=== PATIENT | female | born 1945 | race African-American/Black ===

== ENCOUNTER 2016-05-12 16:01 | Observation (INO) | payer OTHER ==
--- NOTE | 2016-05-12 17:51 | PDOC ---
History of Present Illness - General History Source: Patient Exam Limitations: No Limitations - History of Present Illness Initial Comments: 05/12/16 18:00 The patient is a 70 year old female with significant past medical history of anemia, asthma, a-fib, CHF, COPD, diabetes, GERD, hypertension, hyperlipidemia, who presents to the emergency department from [facility] for a blood transfusion. The patient had routine bloodwork done at the [facility] where she was found to have an Hgb level of 7. The patient is not in any pain, however she does complain of some generalized weakness. She denies any syncope, palpitations, lightheadedness. She denies any chest pain or shortness of breath. She denies any abdominal pain, nausea, vomiting, or diarrhea. The patient denies recent illness, fevers, or chills. <Mariza Craven - Last Filed: 05/12/16 18:00> <Isaias Montenegro - Last Filed: 05/12/16 18:59> - General Chief Complaint: Revisit, Lab Variance Stated Complaint: ABNORMAL LABS Time Seen by Provider: 05/12/16 16:52 Past History <Mariza Craven - Last Filed: 05/12/16 18:00> - Past Medical History Anemia: Yes Asthma: Yes Cancer: No Cardiac Disorders: Yes (atrial fibrilation, CHF) CVA: No COPD: Yes CHF: Yes Dementia: No Diabetes: Yes GI Disorders: Yes (GERD) Disorders: Yes (UTI) HTN: Yes Hypercholesterolemia: Yes Liver Disease: No Suicide Attempt (Hx): No Seizures: No Thyroid Disease: No - Surgical History Abdominal Surgery: No Appendectomy: No Cardiac Surgery: No Cholecystectomy: No Lung Surgery: No Neurologic Surgery: No Orthopedic Surgery: Yes (L. Ankle sx, L.leg) - Immunization History Immunization Up to Date: Yes - Psycho/Social/Smoking Cessation Hx Anxiety: No Suicidal Ideation: No Smoking Status: No Smoking History: Never smoked Have you smoked in the past 12 months: No Number of Cigarettes Smoked Daily: 0 Information on smoking cessation initiated: No Hx Alcohol Use: No Drug/Substance Use Hx: No Substance Use Type: None Hx Substance Use Treatment: No <Isaias Montenegro - Last Filed: 05/12/16 18:59> - Past Medical History Allergies/Adverse Reactions: Allergies Allergy/AdvReac Type Severity Reaction Status Date / Time No Known Allergies Allergy Verified 05/12/16 16:55 Home Medications: Ambulatory Orders Acetaminophen [Tylenol] 650 mg PO BID 05/12/16 Albuterol 2.5/Ipratropium 0.5 [Duoneb -] 1 neb IH QID 05/12/16 Atorvastatin Ca [Lipitor] 10 mg PO HS 05/12/16 Budesonide/Formeterol Fumarate [SYMBICORT 160/4.5mcg -] 1 inh PO BID 05/12/16 Carvedilol [Coreg] 25 mg PO DAILY 05/12/16 Docusate Sodium 100 mg PO DAILY 05/12/16 Epoetin Orlando [Procrit] 20,000 unit IJ WEEKLY 05/12/16 FENTANYL 25mcg PATCH [DURAGESIC 25mcg PATCH -] 1 each TD Q72H 05/12/16 Ferrous Sulfate 325 mg PO DAILY 05/12/16 Folic Acid 1 mg PO DAILY 05/12/16 Furosemide 20 mg PO DAILY 05/12/16 Guaifenesin [Mucinex] 600 mg PO DAILY 05/12/16 Insulin (Levemir) [Levemir Flexpen -] 30 units SQ AM 05/12/16 Isosorbide Mononitrate [Imdur] 60 mg PO DAILY 05/12/16 Lactulose 10 gm PO DAILY 05/12/16 Metolazone [Zaroxolyn -] 5 mg PO DAILY 05/12/16 Nifedipine [Procardia Xl] 60 mg PO DAILY 05/12/16 Oxycodone HCl 10 mg PO TID 05/12/16 Pantoprazole Sodium [Protonix] 40 mg PO DAILY 05/12/16 Ranitidine [Zantac -] 150 mg PO DAILY 05/12/16 Sennosides [Senna] 8.6 mg PO DAILY 05/12/16 Warfarin Sodium [Coumadin] 4 mg PO DAILY 05/12/16 Review of Systems - Review of Systems Able to Perform ROS?: Yes Comments:: 05/12/16 18:00 GENERAL/CONSTITUTIONAL: +Weakness. No fever or chills. HEAD, EYES, EARS, NOSE AND THROAT: No change in vision. No ear pain or discharge. No sore throat. CARDIOVASCULAR: No chest pain or shortness of breath. RESPIRATORY: No cough, wheezing, or hemoptysis. GASTROINTESTINAL: No nausea, vomiting, diarrhea or constipation. GENITOURINARY: No dysuria, frequency, or change in urination. MUSCULOSKELETAL: No joint or muscle swelling or pain. No neck or back pain. SKIN: No rash NEUROLOGIC: No headache, vertigo, loss of consciousness, or change in strength/ sensation. ENDOCRINE: No increased thirst. No abnormal weight change. HEMATOLOGIC/LYMPHATIC: No anemia, easy bleeding, or history of blood clots. ALLERGIC/IMMUNOLOGIC: No hives or skin allergy. <Mariza Craven - Last Filed: 05/12/16 18:00> *Physical Exam - Vital Signs Last Vital Signs Temp Pulse Resp BP Pulse Ox 98.1 F 54 L 18 167/55 98 05/12/16 16:53 05/12/16 16:53 05/12/16 16:53 05/12/16 16:53 05/12/16 16:53 - Physical Exam Comments: 05/12/16 18:00 GENERAL: Awake, alert, and fully oriented, in no acute distress HEAD: No signs of trauma EYES: PERRLA, EOMI, sclera anicteric, conjunctiva clear ENT: Auricles normal inspection, hearing grossly normal, nares patent, oropharynx clear without exudates. Moist mucosa NECK: Normal ROM, supple, no lymphadenopathy, JVD, or masses LUNGS: Breath sounds equal, clear to auscultation bilaterally. No wheezes, and no crackles HEART: Regular rate and rhythm, normal S1 and S2, no murmurs, rubs or gallops ABDOMEN: Soft, nontender, normoactive bowel sounds. No guarding, no rebound. No masses EXTREMITIES: Normal range of motion, no edema. No clubbing or cyanosis. No cords, erythema, or tenderness NEUROLOGICAL: Cranial nerves II through XII grossly intact. Normal speech, normal gait SKIN: Warm, Dry, normal turgor, no rashes or lesions noted. <Mariza Craven - Last Filed: 05/12/16 18:00> - Vital Signs Last Vital Signs Temp Pulse Resp BP Pulse Ox 98.1 F 54 L 18 167/55 98 05/12/16 16:53 05/12/16 16:53 05/12/16 16:53 05/12/16 16:53 05/12/16 16:53 <Isaias Montenegro - Last Filed: 05/12/16 18:59> ED Treatment Course - LABORATORY CBC & Chemistry Diagram: 05/12/16 17:30 05/12/16 17:30 - ADDITIONAL ORDERS Additional order review: 05/12/16 17:30 RBC 2.94 L MCV 79.4 L MCHC 32.0 RDW 16.9 H MPV 7.9 Neutrophils % 69.8 Lymphocytes % 20.6 D Monocytes % 5.6 Eosinophils % 2.8 Basophils % 1.2 <Mariza Craven - Last Filed: 05/12/16 18:00> - LABORATORY CBC & Chemistry Diagram: 05/12/16 17:30 05/12/16 17:30 - RADIOLOGY Radiology Studies Ordered: Category Date Time Status CXRPORT [CHEST X-RAY PORTABLE*] [RAD] Stat Radiology 05/12/16 17:12 Taken <Isaias Montenegro - Last Filed: 05/12/16 18:59> *DC/Admit/Observation/Transfer - Attestations Scribe Attestion: 05/12/16 18:00 Documentation prepared by Mariza Craven, acting as medical administrative specialist for Isaias Montenegro DO. <Mariza Craven - Last Filed: 05/12/16 18:00> - Discharge Dispostion Admit: Yes - Attestations Physician Attestion: 05/12/16 17:51 I, Dr. Isaias Montenegro, attest that this document has been prepared under my direction and personally reviewed by me in its entirety. I further attest, that it accurately reflects all work, treatment, procedures and medical decision -making performed by me. <Isaias Montenegro - Last Filed: 05/12/16 18:59> Diagnosis at time of Disposition: Anemia due to blood loss, Anticoagulated with warfarin - Discharge Dispostion Condition at time of disposition: Improved - Referrals Referrals: Diana Whitmore MD [Primary Care Provider] -
[2016-05-12 17:52] LABS: BASOPHIL 1.2 % (0-2.0); EOSINOPHIL 2.8 % (0-4.5); MCH 25.4 pg (25.7-33.7); MEAN CELL VOLUME 79.4 fl (80-96); MEAN PLT VOLUME 7.9 fl (7.5-11.1); NEUTROPHILS 69.8 % (42.8-82.8); PLATELET COUNT 225 K/MM3 (134-434); RDW 16.9 % (11.6-15.6); WHITE BLOOD COUNT 7.4 K/mm3 (4.0-10.0)
[2016-05-12 18:40] LABS: INR 2.12 (0.82-1.09); PROTHROMBIN TIME (PATIENT) 23.7 SEC (9.98-11.88)
[2016-05-12] MEDS ORDERED: ALBUTEROL SO4 2.5/IPRATROPIUM 0.5 INH SOL 3 ML VIAL.NEB. NEB PRN (19:50)
[2016-05-12] MEDS ORDERED: FUROSEMIDE 40 MG/4 ML INJECTABLE VIAL IVPB ONE (19:51)
[2016-05-12] MEDS ORDERED: FENTANYL PATCH WASTE TD PRN (20:08)
[2016-05-12 20:14] LABS: ALBUMIN 2.7 g/dl (3.4-5.0); ALK PHOS 57 U/L (45-117); ANION GAP 13 (8-16); BILIRUBIN,TOTAL 0.2 mg/dL (0.2-1.0); CALCIUM 8.6 mg/dL (8.5-10.1); CO2 29 mmol/L (21-32); CREATININE 2.7 mg/dL (0.55-1.02); GLUCOSE,RANDOM 206 mg/dL (74-106); SGOT/AST 11 U/L (15-37); SGPT/ALT 12 U/L (12-78); TOT PROT 6.4 g/dl (6.4-8.2)
[2016-05-12 20:17] LABS: TROPONIN I < 0.02 ng/ml (0.00-0.05)
[2016-05-12 20:56] VITALS: BMI 67.1
[2016-05-12] MEDS ORDERED: ATORVASTATIN CA 10 MG TABLET (FP) PO SCH (22:00)
[2016-05-12] MEDS: fentaNYL 25mcg/hr PATCH.TD72 TD SCH (22:12)
[2016-05-12 23:13] LABS: URINE APPEARANCE SLCLOUDY; URINE BILIRUBIN NEGATIVE (NEGATIVE); URINE COLOR LTYELLOW; URINE GLUCOSE (UA) NEGATIVE (NEGATIVE); URINE KETONE NEGATIVE (NEGATIVE); URINE NITRITE NEGATIVE (NEGATIVE); URINE UROBILINOGEN NEGATIVE E.U./dl (0.2-1.0)
[2016-05-12 23:18] LABS: URINE BLOOD 1+ (NEGATIVE); URINE LEUK ESTERASE 1+ (NEGATIVE); URINE PROTEIN 2+ (NEGATIVE)
[2016-05-12 23:19] LABS: URINE RBC 5 /hpf (0-3); URINE WBC 5 /hpf (3-5)
[2016-05-12 23:20] LABS: URINE MUCUS RARE
[2016-05-12] MEDS: BUDESONIDE/FORMETEROL FUMARATE 160/4.5 mcg INHALER IH SCH (23:30)
[2016-05-13] MEDS ORDERED: FUROSEMIDE 40 MG/4 ML INJECTABLE VIAL IVPB ONE (01:00)
[2016-05-13] MEDS: oxyCODONE HCL 5 MG TABLET PO PRN ×2 (01:43→10:22)
[2016-05-13] MEDS: ACETAMINOPHEN 325 MG TABLET (FP) PO PRN ×2 (01:44→10:20)
[2016-05-13] MEDS ORDERED: PT OWN MED DRAWER 7, Y5N ONE ×2 (02:31→10:15)
[2016-05-13] MEDS ORDERED: INSULIN (NOVOLOG) ASPART 100 UNITS/ML 10ML VIAL ONE ×2 (06:30→11:52)
[2016-05-13] MEDS: INSULIN SLIDING SCALE (NOVOLOG) 1 VIAL SQ SCH ×2 (06:50→11:57)
[2016-05-13] MEDS ORDERED: INSULIN DETEMIR 100 UNITS/ML MDV SQ SCH (07:00)
[2016-05-13 08:10] LABS: BASOPHIL 0.6 % (0-2.0); EOSINOPHIL 2.7 % (0-4.5); MCH 25.5 pg (25.7-33.7); MCHC 31.9 g/dl (32.0-36.0); MEAN CELL VOLUME 79.9 fl (80-96); MEAN PLT VOLUME 7.5 fl (7.5-11.1); NEUTROPHILS 68.2 % (42.8-82.8); PLATELET COUNT 208 K/MM3 (134-434); RDW 16.7 % (11.6-15.6); WHITE BLOOD COUNT 7.7 K/mm3 (4.0-10.0)
[2016-05-13 08:20] LABS: INR 1.93 (0.82-1.09); PROTHROMBIN TIME (PATIENT) 21.5 SEC (9.98-11.88)
[2016-05-13 08:47] LABS: ALBUMIN 2.7 g/dl (3.4-5.0); CALCIUM 8.7 mg/dL (8.5-10.1); CREATININE 2.5 mg/dL (0.55-1.02)
[2016-05-13 08:48] LABS: BILIRUBIN,TOTAL 0.4 mg/dL (0.2-1.0); TOT PROT 6.6 g/dl (6.4-8.2)
[2016-05-13] MEDS ORDERED: FERROUS SO4 325 MG TABLET (FP) PO SCH (10:00)
[2016-05-13] MEDS ORDERED: FOLIC ACID 1 MG TABLET (FP) PO SCH (10:00)
[2016-05-13] MEDS ORDERED: CARVEDILOL 25 MG TABLET (FP) PO SCH (10:00)
[2016-05-13] MEDS ORDERED: NIFEdipine E.R 60 MG TABLET (UD) PO SCH (10:00)
[2016-05-13] MEDS ORDERED: SENNOSIDES 8.6MG TABLET (FP) PO SCH (10:00)
[2016-05-13] MEDS ORDERED: ISOSORBIDE MONONITRATE 60 MG TAB.SR.24H (FP) PO SCH (10:00)
[2016-05-13] MEDS ORDERED: LACTULOSE 20 GM/30 ML UDC (FOR ORAL USE ONLY) PO SCH (10:00)
[2016-05-13] MEDS ORDERED: DOCUSATE SODIUM 100 MG CAPSULE (FP) PO SCH (10:00)
[2016-05-13] MEDS ORDERED: PANTOPRAZOLE 40 MG TABLET (FP) PO SCH (10:00)
[2016-05-13] MEDS: BUDESONIDE/FORMETEROL FUMARATE 160/4.5 mcg INHALER IH SCH (10:23)
--- NOTE | 2016-05-13 11:05 | HP ---
Admitting History and Physical - Primary Care Physician PCP: Diana Whitmore - Admission Chief Complaint: anemia History of Present Illness: ER HISTORY - History of Present Illness Initial Comments: 05/12/16 18:00 The patient is a 70 year old female with significant past medical history of anemia, asthma, a-fib, CHF, COPD, diabetes, GERD, hypertension, hyperlipidemia, who presents to the emergency department from [facility] for a blood transfusion. The patient had routine blood work done at the [facility] where she was found to have an Hgb level of 7. The patient is not in any pain, however she does complain of some generalized weakness. She denies any syncope, palpitations, lightheadedness. She denies any chest pain or shortness of breath. She denies any abdominal pain, nausea, vomiting, or diarrhea. The patient denies recent illness, fevers, or chills. Pt examined by me in the floors She has h/o Afib on Coumadin and anemia-- requiring blood transfusions Denies any bleeding episodes Denies chest pain, SOB, palpitations, dizziness Received 2 units of PRBC so far Just recovering from flu like symptoms for about a week now - Past Medical History Cardiovascular: Yes: AFIB (anticoagulants for 5 yrs ), CHF, HTN, Hyperlipdemia. No: CAD Pulmonary: Yes: Asthma, COPD Gastrointestinal: Yes: Constipation, GERD, Hemorrhoids, Other (does not remember about colonscopy ) Renal/: Yes: Renal Inusuff, UTI (h/o recurrent uti) Heme/Onc: Yes: Anemia Psych: Yes: Depression (because son at age 38 yrs by sucide ) Musculoskeletal: Yes: Osteoarthritis Endocrine: Yes: Diabetes Mellitus (IDDM since age 40 yrs ), Other (morbid obesity ) - Past Surgical History Past Surgical History: Yes: (40 years ago per patient) - Smoking History Smoking history: Never smoked Have you smoked in the past 12 months: No Aproximately how many cigarettes per day: 0 - Alcohol/Substance Use Hx Alcohol Use: No History of Substance Use: reports: None Home Medications - Allergies Allergies/Adverse Reactions: Allergies Allergy/AdvReac Type Severity Reaction Status Date / Time No Known Allergies Allergy Verified 05/12/16 16:55 - Home Medications Home Medications: Ambulatory Orders Acetaminophen [Tylenol] 650 mg PO BID 05/12/16 Albuterol 2.5/Ipratropium 0.5 [Duoneb -] 1 neb IH QID 05/12/16 Atorvastatin Ca [Lipitor] 10 mg PO HS 05/12/16 Budesonide/Formeterol Fumarate [SYMBICORT 160/4.5mcg -] 1 inh PO BID 05/12/16 Carvedilol [Coreg] 25 mg PO DAILY 05/12/16 Docusate Sodium 100 mg PO DAILY 05/12/16 Epoetin Orlando [Procrit] 20,000 unit IJ WEEKLY 05/12/16 FENTANYL 25mcg PATCH [DURAGESIC 25mcg PATCH -] 1 each TD Q72H 05/12/16 Ferrous Sulfate 325 mg PO DAILY 05/12/16 Folic Acid 1 mg PO DAILY 05/12/16 Furosemide 20 mg PO DAILY 05/12/16 Guaifenesin [Mucinex] 600 mg PO DAILY 05/12/16 Insulin (Levemir) [Levemir Flexpen -] 30 units SQ AM 05/12/16 Isosorbide Mononitrate [Imdur] 60 mg PO DAILY 05/12/16 Lactulose 10 gm PO DAILY 05/12/16 Metolazone [Zaroxolyn -] 5 mg PO DAILY 05/12/16 Nifedipine [Procardia Xl] 60 mg PO DAILY 05/12/16 Oxycodone HCl 10 mg PO TID 05/12/16 Pantoprazole Sodium [Protonix] 40 mg PO DAILY 05/12/16 Ranitidine [Zantac -] 150 mg PO DAILY 05/12/16 Sennosides [Senna] 8.6 mg PO DAILY 05/12/16 Warfarin Sodium [Coumadin] 4 mg PO DAILY 05/12/16 Family Disease History - Family Disease History Family Disease History: Diabetes: Father, Mother Review of Systems - Review of Systems Constitutional: reports: Weakness. denies: Fever, Lethargy, Loss of Appetite Cardiovascular: denies: Chest Pain, Palpitations, Shortness of Breath Respiratory: denies: Cough, Orthopnea, PND, SOB, SOB on Exertion Physical Examination Vital Signs: Vital Signs Temperature 97.9 F 05/13/16 06:00 Pulse Rate 69 05/13/16 06:00 Respiratory Rate 20 05/13/16 06:00 Blood Pressure 192/54 05/13/16 06:00 O2 Sat by Pulse Oximetry (%) 98 05/13/16 04:00 Constitutional: Yes: No Distress, Calm Cardiovascular: Yes: Pulse Irregular Respiratory: Yes: Diminished Gastrointestinal: Yes: Normal Bowel Sounds, Soft, Abdomen, Obese. No: Distention, Tenderness Edema: Yes (decreased from previous) Edema: LLE: 2+, RLE: 2+ Neurological: Yes: Alert, Oriented Labs: CBC, BMP 05/13/16 07:20 05/13/16 07:20 Imaging - Results Chest X-ray: Image Reviewed (no infiltrates) EKG: Image Reviewed (Afib) Problem List - Problems (1) Anemia, blood loss Code(s): D50.0 - IRON DEFICIENCY ANEMIA SECONDARY TO BLOOD LOSS (CHRONIC) (2) Anticoagulated on Coumadin Code(s): Z51.81 - ENCOUNTER FOR THERAPEUTIC DRUG LEVEL MONITORING Z79.01 - RETIREMENT (CURRENT) USE OF 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 (3) Afib Code(s): I48.91 - UNSPECIFIED ATRIAL FIBRILLATION Qualifiers: Atrial fibrillation type: persistent Qualified Code(s): I48.1 - Persistent atrial fibrillation (4) Kidney disease, chronic, stage III (GFR 30-59 ml/min) Code(s): N18.3 - CHRONIC KIDNEY DISEASE, STAGE 3 (MODERATE) Assessment/Plan PLAN --s/p 2 units of PRBC -- HB better -- renal function better -- will resume Lasix BID -- continue with meds -- she will be seeing Dr Mccullough in the MD -- continue with Coumadin -- dc to MD
--- NOTE | 2016-05-13 13:12 | DS ---
Physical Examination Vital Signs: Vital Signs Temperature 97.9 F 05/13/16 06:00 Pulse Rate 69 05/13/16 06:00 Respiratory Rate 20 05/13/16 06:00 Blood Pressure 192/54 05/13/16 06:00 O2 Sat by Pulse Oximetry (%) 98 05/13/16 04:00 Labs: CBC, BMP 05/13/16 07:20 05/13/16 07:20 Discharge Summary Reason For Visit: COPD W/EXACERBATION; ANEMIA; A-FIB; OBESITY Current Active Problems Anemia, blood loss (Acute) Anticoagulated on Coumadin (Acute) Kidney disease, chronic, stage III (GFR 30-59 ml/min) (Acute) Hospital Course: read H & P Condition: Improved - Instructions Diet, Activity, Other Instructions: please check CBC, bmp , INR every 2 weeks will need to see Dr Mccullough for follow up with renal function Referrals: Diana Whitmore MD [Staff Physician] - Disposition: HALF-WAY FACILITY - Home Medications Comprehensive Discharge Medication List: Ambulatory Orders Acetaminophen [Tylenol] 650 mg PO BID 05/12/16 Albuterol 2.5/Ipratropium 0.5 [Duoneb -] 1 neb IH QID 05/12/16 Atorvastatin Ca [Lipitor] 10 mg PO HS 05/12/16 Budesonide/Formeterol Fumarate [SYMBICORT 160/4.5mcg -] 1 inh PO BID 05/12/16 Carvedilol [Coreg] 25 mg PO DAILY 05/12/16 Docusate Sodium 100 mg PO DAILY 05/12/16 Epoetin Orlando [Procrit] 20,000 unit IJ WEEKLY 05/12/16 FENTANYL 25mcg PATCH [DURAGESIC 25mcg PATCH -] 1 each TD Q72H 05/12/16 Ferrous Sulfate 325 mg PO DAILY 05/12/16 Folic Acid 1 mg PO DAILY 05/12/16 Guaifenesin [Mucinex] 600 mg PO DAILY 05/12/16 Insulin (Levemir) [Levemir Flexpen -] 30 units SQ AM 05/12/16 Isosorbide Mononitrate [Imdur] 60 mg PO DAILY 05/12/16 Lactulose 10 gm PO DAILY 05/12/16 Metolazone [Zaroxolyn -] 5 mg PO DAILY 05/12/16 Nifedipine [Procardia Xl] 60 mg PO DAILY 05/12/16 Oxycodone HCl 10 mg PO TID 05/12/16 Pantoprazole Sodium [Protonix] 40 mg PO DAILY 05/12/16 Ranitidine [Zantac -] 150 mg PO DAILY 05/12/16 Sennosides [Senna] 8.6 mg PO DAILY 05/12/16 Warfarin Sodium [Coumadin] 4 mg PO DAILY 05/12/16 Furosemide [Lasix -] 40 mg PO BID@0600,1400 #60 tablet 05/13/16
[2016-05-13 13:35] VITALS: PULSE 65; TEMP 97.8
[2016-05-13 13:50] VITALS: BP 140/80
[2016-05-13] MEDS ORDERED: FUROSEMIDE 40 MG TABLET (FP) PO SCH (14:00)
--- NOTE | 2016-05-13 17:35 | EKG ---
Test Reason : Blood Pressure : / mmHG Vent. Rate : 070 BPM Atrial Rate : 065 BPM P-R Int : 000 ms QRS Dur : 086 ms QT Int : 440 ms P-R-T Axes : 000 043 056 degrees QTc Int : 475 ms POOR DATA QUALITY, INTERPRETATION MAY BE ADVERSELY AFFECTED ATRIAL FIBRILLATION ABNORMAL ECG WHEN COMPARED WITH ECG OF 10-MAR-2016 14:13, NO SIGNIFICANT CHANGE WAS FOUND Confirmed by ZEE VELASQUEZ, ELOISA ([id number]) on 05/13/2016 5:35:07 PM Referred By: Confirmed By:ELOISA KOCH MD
[2016-05-13] MEDS ORDERED: WARFARIN NA 2 MG TABLET (UD) PO SCH (18:00)
== END 2016-05-13 16:17 ==
LOC: JER 16:01 → SUPCPDRO 16:01 → JERBED 19:25 → J6S 20:33
PROVIDERS: ADMIT Internal Medicine; ATTEND Internal Medicine
PROC: 30233N1 Transfusion of Nonautologous Red Blood Cells into Peripheral Vein, Percutaneous Approach (ICD-10-PCS; principal; 2016-05-12)
DX: D50.0 Iron deficiency anemia secondary to blood loss (chronic) (principal); J45.909 Unspecified asthma, uncomplicated; I48.91 Unspecified atrial fibrillation; J44.9 Chronic obstructive pulmonary disease, unspecified; E11.9 Type 2 diabetes mellitus without complications; K21.9 Gastro-esophageal reflux disease without esophagitis; F32.9 Major depressive disorder, single episode, unspecified; I12.9 Hypertensive chronic kidney disease with stage 1 through stage 4 chronic kidney disease, or unspecified chronic kidney disease; N18.3 Chronic kidney disease, stage 3 (moderate); M19.90 Unspecified osteoarthritis, unspecified site; I50.9 Heart failure, unspecified; E66.01 Morbid (severe) obesity due to excess calories; Z68.44 Body mass index [BMI] 60.0-69.9, adult; Z71.3 Dietary counseling and surveillance; Z79.01 Long term (current) use of anticoagulants
CPT/HCPCS: 36430; P9021; 36415; 71010-TC; 80053; 81003; 81015; 82550; 83690; 84484; 85025; 85610; 86850; 86870; 86900; 86901; 86902; 86922; 87086; 93005; 93010; 99285-25; G0378; P9038; P9058

== ENCOUNTER 2016-07-25 01:02 | Inpatient (IN) | payer OTHER ==
[2016-07-25 01:21] VITALS: BMI 74.9
--- NOTE | 2016-07-25 01:45 | PDOC ---
History of Present Illness <Maria Teresa Dillard - Last Filed: 07/25/16 05:53> - History of Present Illness Initial Comments: 07/25/16 02:07 The patient is a 70 year old female with history of hypertension, hyperlipidemia , DM, CHF, atrial fibrillation, asthma, chronic anemia, and obesity, sent from [facility] for anemia. On evaluation, the patient complains only of joint pain in her bilateral hands and shoulders secondary to her arthritis. No chest pain, lightheadedness, or shortness of breath. No melena, hematochezia, or hempotysis. <Esme Sage - Last Filed: 07/25/16 06:35> - General Chief Complaint: Revisit, Lab Variance Stated Complaint: ABNORMAL LABS Time Seen by Provider: 07/25/16 01:44 Past History - Past Medical History Anemia: Yes Asthma: Yes Cancer: No Cardiac Disorders: Yes (atrial fibrilation, CHF) CVA: No COPD: Yes CHF: Yes Dementia: No Diabetes: Yes GI Disorders: Yes (GERD) Disorders: Yes (UTI) HTN: Yes Hypercholesterolemia: Yes Liver Disease: No Suicide Attempt (Hx): No Seizures: No Thyroid Disease: No - Surgical History Abdominal Surgery: No Appendectomy: No Cardiac Surgery: No Cholecystectomy: No Lung Surgery: No Neurologic Surgery: No Orthopedic Surgery: Yes (L. Ankle sx, L.leg) - Immunization History Immunization Up to Date: Yes - Psycho/Social/Smoking Cessation Hx Anxiety: No Suicidal Ideation: No Smoking Status: No Smoking History: Never smoked Have you smoked in the past 12 months: No Number of Cigarettes Smoked Daily: 0 Hx Alcohol Use: No Drug/Substance Use Hx: No Substance Use Type: None Hx Substance Use Treatment: No <Maria Teresa Dillard - Last Filed: 07/25/16 05:53> <Esme Sage - Last Filed: 07/25/16 06:35> - Past Medical History Allergies/Adverse Reactions: Allergies Allergy/AdvReac Type Severity Reaction Status Date / Time No Known Allergies Allergy Verified 07/25/16 01:18 Home Medications: Ambulatory Orders Acetaminophen [Tylenol] 650 mg PO BID 05/12/16 Atorvastatin Ca [Lipitor] 10 mg PO HS 05/12/16 Budesonide/Formeterol Fumarate [SYMBICORT 160/4.5mcg -] 1 inh PO BID 05/12/16 Carvedilol [Coreg] 25 mg PO DAILY 05/12/16 Docusate Sodium 100 mg PO DAILY 05/12/16 Epoetin [place] [Procrit] 20,000 unit SQ WEEKLY 05/12/16 FENTANYL 25mcg PATCH [DURAGESIC 25mcg PATCH -] 1 each TD Q72H 05/12/16 Ferrous Sulfate 325 mg PO DAILY 05/12/16 Folic Acid 1 mg PO DAILY 05/12/16 Guaifenesin [Mucinex] 600 mg PO DAILY 05/12/16 Insulin (Levemir) [Levemir Flexpen -] 30 units SQ AM 05/12/16 Isosorbide Mononitrate [Imdur] 60 mg PO DAILY 05/12/16 Lactulose 30 gm PO DAILY 05/12/16 Metolazone [Zaroxolyn -] 5 mg PO DAILY 05/12/16 Oxycodone HCl 10 mg PO TID PRN 05/12/16 Ranitidine [Zantac -] 150 mg PO HS 05/12/16 Sennosides [Senna] 2 tab PO DAILY 05/12/16 Gabapentin 100 mg PO TID 06/15/16 Insulin Aspart [Novolog Flexpen] 0 unit SQ ASDIR 06/15/16 Multivitamin with Minerals [Icaps Plus] 1 each PO DAILY 06/15/16 Acetaminophen [Tylenol .Regular Strength -] 650 mg PO Q6H PRN #0 tablet Albuterol 2.5/Ipratropium 0.5 [Duoneb -] 1 amp NEB QIDR amp 06/18/16 Furosemide [Lasix -] 60 mg PO BID@0600,1400 #60 tablet 06/18/16 Nifedipine [Procardia Xl] 90 mg PO DAILY #30 tab.er.24 06/18/16 Warfarin Na [Coumadin -] 5 mg PO DAILY@1800 tablet 06/18/16 Review of Systems - Review of Systems Able to Perform ROS?: Yes Comments:: 07/25/16 02:09 GENERAL/CONSTITUTIONAL: No fever or chills. No weakness. HEAD, EYES, EARS, NOSE AND THROAT: No change in vision. No ear pain or discharge. No sore throat CARDIOVASCULAR: No chest pain or shortness of breath. RESPIRATORY: No cough, wheezing, or hemoptysis. GASTROINTESTINAL: No nausea, vomiting, diarrhea or constipation. GENITOURINARY: No dysuria, frequency, or change in urination. MUSCULOSKELETAL: +Diffuse arthralgias. No muscle swelling or pain. No back pain. SKIN: No rash NEUROLOGIC: No headache, vertigo, loss of consciousness, or change in strength/ sensation. ENDOCRINE: No increased thirst. No abnormal weight change. HEMATOLOGIC/LYMPHATIC: No anemia, easy bleeding, or history of blood clots. ALLERGIC/IMMUNOLOGIC: No hives or skin allergy. <Esme Sage - Last Filed: 07/25/16 06:35> *Physical Exam - Vital Signs Last Vital Signs Temp Pulse Resp BP Pulse Ox 97.8 F 62 18 126/59 96 07/25/16 01:18 07/25/16 01:18 07/25/16 01:18 07/25/16 01:18 07/25/16 01:18 <Maria Teresa Dillard - Last Filed: 07/25/16 05:53> - Vital Signs Last Vital Signs Temp Pulse Resp BP Pulse Ox 97.8 F 62 18 126/59 96 07/25/16 01:18 07/25/16 01:18 07/25/16 01:18 07/25/16 01:18 07/25/16 01:18 - Physical Exam Comments: 07/25/16 02:09 GENERAL: Awake, alert, and fully oriented, in no acute distress. Morbidly obese. HEAD: No signs of trauma EYES: PERRLA, EOMI, sclera anicteric, conjunctiva clear ENT: Auricles normal inspection, hearing grossly normal, nares patent, oropharynx clear without exudates. Moist mucosa NECK: Normal ROM, supple, no lymphadenopathy, JVD, or masses LUNGS: On nasal cannula. Breath sounds equal, clear to auscultation bilaterally. No wheezes, and no crackles HEART: Regular rate and rhythm, normal S1 and S2, no murmurs, rubs or gallops ABDOMEN: Soft, nontender, normoactive bowel sounds. No guarding, no rebound. No masses EXTREMITIES: Normal range of motion, no edema. No clubbing or cyanosis. No cords, erythema, or tenderness NEUROLOGICAL: Cranial nerves II through XII grossly intact. Normal speech, does not ambulate secondary to pain. SKIN: Warm, Dry, normal turgor, no rashes or lesions noted. <Esme Sage - Last Filed: 07/25/16 06:35> Heart Score/ECG Review #1 07/25/16 04:53 EKG obtained 4:10. Junctional rhythm 65 bpm. Septal infarct, age undetermined. Age undetermined. <Esme Sage - Last Filed: 07/25/16 06:35> ED Treatment Course - LABORATORY CBC & Chemistry Diagram: 07/25/16 03:05 07/25/16 03:05 <Maria Teresa Dillard - Last Filed: 07/25/16 05:53> - LABORATORY CBC & Chemistry Diagram: 07/25/16 03:05 07/25/16 03:05 <Esme Sage - Last Filed: 07/25/16 06:35> Medical Decision Making - Medical Decision Making 07/25/16 02:34 Morbidly obese female comes from [place] for transfusion, as her HB and HCT are low. She chronically has anemia and tells me that she is sent to the hospital for routine transfusions. She has severe arthritis in her knees and coupled with her morbid obesity and deconditioning and her age, she is unable to get out of bed. Everything hurts the patient. 07/25/16 02:57 She comes now for blood transfusion admission for blood Hb 6.9 that was obtained in the [place] earlier ; results came in at 10:38PM last night 07/25/16 04:08 07/25/16 04:16 EKG: junctional rhythm 07/25/16 04:16 Pt's Hb is 6.6. I will put her in for 2U PRBC to be given in the ER, as there are no beds on the med surg floor <Maria Teresa Dillard - Last Filed: 07/25/16 05:53> - Medical Decision Making 07/25/16 05:48 Placed call to patient's PCP, Dr. Roberts and [phone]. Awaiting callback. 07/25/16 06:[address] Roberts, who requested Dr. Lee for admission. Case discussed with Dr. Lee, who agreed to admission. <Esme Sage - Last Filed: 07/25/16 06:35> *DC/Admit/Observation/Transfer - Discharge Dispostion Admit: Yes <Maria Teresa Dillard - Last Filed: 07/25/16 05:53> - Attestations Scribe Attestion: 07/25/16 02:10 Documentation prepared by Esme Sage, acting as medical reimbursement specialist for Maria Teresa Dillard MD. <Esme Sage - Last Filed: 07/25/16 06:35> Diagnosis at time of Disposition: Renal failure (ARF), acute on chronic, Anemia, blood loss - Referrals
[2016-07-25 03:11] LABS: BASOPHIL 0.5 % (0-2.0); EOSINOPHIL 3.1 % (0-4.5); MCH 26.5 pg (25.7-33.7); MCHC 31.6 g/dl (32.0-36.0); MEAN CELL VOLUME 83.7 fl (80-96); MEAN PLT VOLUME 7.7 fl (7.5-11.1); NEUTROPHILS 71.5 % (42.8-82.8); PLATELET COUNT 173 K/MM3 (134-434); RDW 17.6 % (11.6-15.6); WHITE BLOOD COUNT 7.2 K/mm3 (4.0-10.0)
[2016-07-25 03:52] LABS: ALBUMIN 2.8 g/dl (3.4-5.0); BILIRUBIN,TOTAL 0.2 mg/dL (0.2-1.0); CALCIUM 8.2 mg/dL (8.5-10.1); COCKROFT - GAULT 54.8845; CREATININE 2.8 mg/dL (0.55-1.02); TOT PROT 6.5 g/dl (6.4-8.2)
[2016-07-25] MEDS ORDERED: fentaNYL 25mcg/hr PATCH.TD72 TD SCH ×2 (09:15→10:00)
--- NOTE | 2016-07-25 09:29 | HP ---
Admitting History and Physical - Primary Care Physician PCP: Alicja Lee - Admission Chief Complaint: sob/ anemia History of Present Illness: The patient is a 70 year old female with history of hypertension, hyperlipidemia , DM, CHF, paroxsysmal atrial fibrillation, asthma, chronic anemia, and morbid obesity, sent from [facility] for anemia. On evaluation, the patient complains only of joint pain in her bilateral hands and shoulders secondary to her arthritis. No chest pain, lightheadedness, or shortness of breath. No melena , hematochezia, or hempotysis. pt also found to be in chf/ arf on crf pt to be admitted to floor Pt to be transfused case was discussed with er physician last ninght Pt seen/ examined in er morbidly obese-- essentially bed bound denies cp c/c- whole body/ joints hurts sob + no abd pain no h/o blood in stools no fever/ chills History Source: Patient, Medical Record - Past Medical History Cardiovascular: Yes: AFIB (anticoagulants for 5 yrs ), CHF, HTN, Hyperlipdemia. No: CAD Pulmonary: Yes: Asthma, COPD Gastrointestinal: Yes: Constipation, GERD, Hemorrhoids, Other (does not remember about colonscopy ) Renal/: Yes: Renal Inusuff, UTI (h/o recurrent uti) Heme/Onc: Yes: Anemia Psych: Yes: Depression (because son at age 38 yrs by sucide ) Musculoskeletal: Yes: Osteoarthritis Endocrine: Yes: Diabetes Mellitus (IDDM since age 40 yrs ), Other (morbid obesity ) - Past Surgical History Past Surgical History: Yes: (40 years ago per patient) - Smoking History Smoking history: Never smoked Have you smoked in the past 12 months: No Aproximately how many cigarettes per day: 0 - Alcohol/Substance Use Hx Alcohol Use: No History of Substance Use: reports: None Home Medications - Allergies Allergies/Adverse Reactions: Allergies Allergy/AdvReac Type Severity Reaction Status Date / Time No Known Allergies Allergy Verified 07/25/16 01:18 - Home Medications Home Medications: Ambulatory Orders Acetaminophen [Tylenol] 650 mg PO BID 05/12/16 Atorvastatin Ca [Lipitor] 10 mg PO HS 05/12/16 Budesonide/Formeterol Fumarate [SYMBICORT 160/4.5mcg -] 1 inh PO BID 05/12/16 Carvedilol [Coreg] 25 mg PO DAILY 05/12/16 Docusate Sodium 100 mg PO DAILY 05/12/16 Epoetin [place] [Procrit] 20,000 unit SQ WEEKLY 05/12/16 FENTANYL 25mcg PATCH [DURAGESIC 25mcg PATCH -] 1 each TD Q72H 05/12/16 Ferrous Sulfate 325 mg PO DAILY 05/12/16 Folic Acid 1 mg PO DAILY 05/12/16 Guaifenesin [Mucinex] 600 mg PO DAILY 05/12/16 Insulin (Levemir) [Levemir Flexpen -] 30 units SQ AM 05/12/16 Isosorbide Mononitrate [Imdur] 60 mg PO DAILY 05/12/16 Lactulose 30 gm PO DAILY 05/12/16 Metolazone [Zaroxolyn -] 5 mg PO DAILY 05/12/16 Oxycodone HCl 10 mg PO TID PRN 05/12/16 Ranitidine [Zantac -] 150 mg PO HS 05/12/16 Sennosides [Senna] 2 tab PO DAILY 05/12/16 Gabapentin 100 mg PO TID 06/15/16 Insulin Aspart [Novolog Flexpen] 0 unit SQ ASDIR 06/15/16 Multivitamin with Minerals [Icaps Plus] 1 each PO DAILY 06/15/16 Acetaminophen [Tylenol .Regular Strength -] 650 mg PO Q6H PRN #0 tablet Albuterol 2.5/Ipratropium 0.5 [Duoneb -] 1 amp NEB QIDR amp 06/18/16 Furosemide [Lasix -] 60 mg PO BID@0600,1400 #60 tablet 06/18/16 Nifedipine [Procardia Xl] 90 mg PO DAILY #30 tab.er.24 06/18/16 Warfarin Na [Coumadin -] 5 mg PO DAILY@1800 tablet 06/18/16 Family Disease History - Family Disease History Family Disease History: Diabetes: Father, Mother Review of Systems Unable to obtain ROS, [facility] Physical Examination Vital Signs: Vital Signs Temperature 98 F 07/25/16 07:06 Pulse Rate 60 07/25/16 07:06 Respiratory Rate 20 07/25/16 07:06 Blood Pressure 117/78 07/25/16 07:06 O2 Sat by Pulse Oximetry (%) 97 07/25/16 07:06 Constitutional: Yes: No Distress, Obese Eyes: Yes: Conjunctiva Clear Neck: Yes: Supple Cardiovascular: Yes: Regular Rate and Rhythm Respiratory: Yes: Diminished Edema: LLE: 2+, RLE: 2+ Neurological: Yes: Alert Psychiatric: Yes: Alert Imaging - Results Chest X-ray: Report Reviewed EKG: Report Reviewed Problem List - Problems (1) Renal failure (ARF), acute on chronic Code(s): N17.9 - ACUTE KIDNEY FAILURE, UNSPECIFIED N18.9 - CHRONIC KIDNEY DISEASE, UNSPECIFIED (2) Afib Code(s): I48.91 - UNSPECIFIED ATRIAL FIBRILLATION Qualifiers: Atrial fibrillation type: persistent Qualified Code(s): I48.1 - Persistent atrial fibrillation (3) Anemia Code(s): D64.9 - ANEMIA, UNSPECIFIED Qualifiers: Anemia type: unspecified type Qualified Code(s): D64.9 - Anemia, unspecified (4) Diabetes 1.5, managed as type 1 Code(s): E13.9 - OTHER SPECIFIED DIABETES MELLITUS WITHOUT COMPLICATIONS (5) Obesity Code(s): E66.9 - OBESITY, UNSPECIFIED (6) Anemia requiring transfusions Code(s): D64.9 - ANEMIA, UNSPECIFIED Assessment/Plan Transfuse Lasix monitor bgm avoid nephrotoxins cxr - reviewed pneumonia ? pt has no fever/ cough will repeat f/u lytes Overall condition gaurded due to multiple co morbidities will follow
[2016-07-25] MEDS ORDERED: FENTANYL PATCH WASTE TD PRN (10:00)
[2016-07-25] MEDS ORDERED: LACTULOSE 20 GM/30 ML UDC (FOR ORAL USE ONLY) ONE (10:52)
[2016-07-25] MEDS ORDERED: FOLIC ACID 1 MG TABLET (FP) ONE (10:53)
[2016-07-25] MEDS ORDERED: ISOSORBIDE MONONITRATE 60 MG TAB.SR.24H (FP) PO ONE (10:53)
[2016-07-25] MEDS ORDERED: DOCUSATE SODIUM 100 MG CAPSULE (FP) PO ONE (10:53)
[2016-07-25] MEDS ORDERED: HEPARIN NA (PORCINE) 5,000 UNITS/ML 1ML VIAL ONE (10:53)
[2016-07-25] MEDS ORDERED: FERROUS SO4 325 MG TABLET (FP) ONE (10:53)
[2016-07-25] MEDS ORDERED: CARVEDILOL 12.5 MG TABLET (FP) ONE (10:53)
[2016-07-25] MEDS: DOCUSATE SODIUM 100 MG CAPSULE (FP) PO SCH (11:09)
[2016-07-25] MEDS: LACTULOSE 20 GM/30 ML UDC (FOR ORAL USE ONLY) PO SCH (11:09)
[2016-07-25] MEDS: CARVEDILOL 25 MG TABLET (FP) PO SCH (11:09)
[2016-07-25] MEDS: FERROUS SO4 325 MG TABLET (FP) PO SCH (11:10)
[2016-07-25] MEDS: FOLIC ACID 1 MG TABLET (FP) PO SCH (11:10)
[2016-07-25] MEDS: ISOSORBIDE MONONITRATE 60 MG TAB.SR.24H (FP) PO SCH (11:10)
[2016-07-25] MEDS: HEPARIN NA (PORCINE) 5,000 UNITS/ML 1ML VIAL SQ SCH ×2 (11:10→23:01)
--- NOTE | 2016-07-25 11:34 | CON.CARD ---
Cardiology Consult (text) - Consultation Consultation Note: cc: sob, le edema hpi: 70 f hx pafib, diastolic chf/venous insuff/edema, morbid obesity, htn, hld , dm, ckd, copd presents with anemia, noted to have pulmonary congestion on CXR. Patient endorses diffuse myalgias, joint pains. Otherwise denies complaints. Per patient, volume status is at her baseline. No f/c/s, n/v/d, cough, congestion, headache, visual changes No orthpnea, pnd, cp, sob, palps, dizziness, bleeding. chronic le edema stable. pmh: per hpi psh: social: no tob fam: no premature cad, scd, +htn, +dm ros: per hpi; no fever, nvd, rash, MORALES, vision changes, cough, nasal congestion, GIB meds: Ambulatory Orders Acetaminophen [Tylenol] 650 mg PO BID 05/12/16 Atorvastatin Ca [Lipitor] 10 mg PO HS 05/12/16 Budesonide/Formeterol Fumarate [SYMBICORT 160/4.5mcg -] 1 inh PO BID 05/12/16 Carvedilol [Coreg] 25 mg PO DAILY 05/12/16 Docusate Sodium 100 mg PO DAILY 05/12/16 Epoetin [place] [Procrit] 20,000 unit SQ WEEKLY 05/12/16 FENTANYL 25mcg PATCH [DURAGESIC 25mcg PATCH -] 1 each TD Q72H 05/12/16 Ferrous Sulfate 325 mg PO DAILY 05/12/16 Folic Acid 1 mg PO DAILY 05/12/16 Guaifenesin [Mucinex] 600 mg PO DAILY 05/12/16 Insulin (Levemir) [Levemir Flexpen -] 30 units SQ AM 05/12/16 Isosorbide Mononitrate [Imdur] 60 mg PO DAILY 05/12/16 Lactulose 30 gm PO DAILY 05/12/16 Metolazone [Zaroxolyn -] 5 mg PO DAILY 05/12/16 Oxycodone HCl 10 mg PO TID PRN 05/12/16 Ranitidine [Zantac -] 150 mg PO HS 05/12/16 Sennosides [Senna] 2 tab PO DAILY 05/12/16 Gabapentin 100 mg PO TID 06/15/16 Insulin Aspart [Novolog Flexpen] 0 unit SQ ASDIR 06/15/16 Multivitamin with Minerals [Icaps Plus] 1 each PO DAILY 06/15/16 Acetaminophen [Tylenol .Regular Strength -] 650 mg PO Q6H PRN #0 tablet Albuterol 2.5/Ipratropium 0.5 [Duoneb -] 1 amp NEB QIDR amp 06/18/16 Furosemide [Lasix -] 60 mg PO BID@0600,1400 #60 tablet 06/18/16 Nifedipine [Procardia Xl] 90 mg PO DAILY #30 tab.er.24 06/18/16 Warfarin Na [Coumadin -] 5 mg PO DAILY@1800 tablet 06/18/16 Current Medications Acetaminophen (Tylenol -) 650 mg PO Q6H PRN PRN Reason: PAIN Albuterol/Ipratropium (Duoneb -) 1 amp NEB QIDR [facility] Atorvastatin Calcium (Lipitor -) 10 mg PO HS [facility] Budesonide/Formoterol Fumarate (Symbicort 160/4.5mcg -) 1 puff IH BID [facility] Carvedilol (Coreg -) 25 mg PO DAILY [facility] Last Admin: 07/25/16 11:09 Dose: 25 mg Docusate Sodium (Colace -) 100 mg PO DAILY [facility] Last Admin: 07/25/16 11:09 Dose: 100 mg Fentanyl (Duragesic 25mcg Patch -) 1 patch TD Q72H [facility] Ferrous Sulfate (Feosol -) 325 mg PO DAILY [facility] Last Admin: 07/25/16 11:10 Dose: 325 mg Folic Acid (Folic Acid -) 1 mg PO DAILY [facility] Last Admin: 07/25/16 11:10 Dose: 1 mg Furosemide (Lasix -) 60 mg PO BID@0600,1400 [facility] Gabapentin (Neurontin -) 100 mg PO TID [facility] Guaifenesin (Mucinex -) 600 mg PO DAILY [facility] Heparin Sodium (Porcine) (Heparin -) 5,000 unit SQ BID [facility] Last Admin: 07/25/16 11:10 Dose: 5,000 unit Insulin Aspart (Novolog Vial Sliding Scale -) 1 vial SQ TIDAC [facility] PRN Reason: Protocol Insulin Detemir (Levemir Vial) 30 units SQ AM [facility] Isosorbide Mononitrate (Imdur -) 60 mg PO DAILY [facility] Last Admin: 07/25/16 11:10 Dose: 60 mg Lactulose (Cephulac (Oral Use)) 30 gm PO DAILY [facility] Last Admin: 07/25/16 11:09 Dose: 30 gm Metolazone (Zaroxolyn -) 5 mg PO DAILY@0530 [facility] Miscellaneous (Duragesic Patch Waste) 1 each TD PRN PRN Nifedipine (Procardia Xl -) 90 mg PO DAILY [facility] Non-Formulary Medication (Epoetin [place] [Procrit]) 20,000 unit SQ WEEKLY [facility] Non-Formulary Medication (Multivitamin With Minerals [Icaps Plus]) 1 each PO DAILY [facility] Oxycodone HCl (Roxicodone -) 10 mg PO TID PRN PRN Reason: PAIN Ranitidine HCl (Zantac -) 150 mg PO HS [facility] Senna (Senna -) 2 tab PO DAILY [facility] pe: Vital Signs - 24 hr 07/25/16 07/25/16 07/25/16 01:18 07:06 09:58 Temperature 97.8 F 98 F Pulse Rate 62 Pulse Rate [ 60 61 Right Radial] Respiratory 18 20 22 Rate Blood Pressure 126/59 Blood Pressure 117/78 136/62 [Left Arm] O2 Sat by Pulse 96 97 98 Oximetry (%) 07/25/16 09:59 Temperature 98 F Pulse Rate Pulse Rate [ Right Radial] Respiratory Rate Blood Pressure Blood Pressure [Left Arm] O2 Sat by Pulse Oximetry (%) Intake & Output 07/23/16 07/24/16 07/25/16 07/26/16 07:59 07:59 07:59 07:59 Weight 410 lb nad, calm. lying flat in bed morbid obesity ?jvd (tds 2/2 morbid obesity) rrr s1s2 no mrg bibasilar crackles nl eff aaox3 trace le edema no c/c abd nt nd pos bs no jaundice diaphoresis pos dp pt CBC, BMP 07/25/16 03:05 07/25/16 03:05 Laboratory Tests 09/23/15 07/25/16 08:00 03:05 Total Bilirubin 0.2 D AST 10 L D ALT 15 D Alkaline Phosphatase 52 D Albumin 3.1 L 2.8 L EKG: Likely SR. early r wave progression (I question proper lead placement 2/2 obesity). non-specific t wave abnormality. portable CXR: suboptimal possible increased congestive changes. echo 09/2015 tds echo 01/2013: tds, nl lvef, valves not seen well cath 11/2007: normal cors 70 f hx pafib, diastolic chf/venous insuff/edema, morbid obesity, htn, hld, dm, ckd, copd, chronic anemia presents with anemia, noted to have pulmonary congestion on CXR anemia - plan for transfusion. Eval/Management per pm acute diastolic chf exacerbation: - Given significant obesity would recommend torsemide over po lasix for better absorption, con't metolazone - can supplement with IV lasix if edema worsens with transfusions. pafib: -in sr here -cont bb -cont AC with coumadin per INR. will defer to pmd regarding safety of AC in setting of anemia, ? source. - patient with only one EKG with afib (patient with low voltage p wave, that EKG may have been SR with pac's). would try to obtain records of atrial fibrillation diagnosis/history as outpatient if patient is high risk for AC. htn: -stable, cont home meds hld: -cont statin ckd: -near baseline, monitor with diuresis
[2016-07-25] MEDS: INSULIN SLIDING SCALE (NOVOLOG) 1 VIAL SQ SCH (12:00)
[2016-07-25] MEDS: NIFEdipine E.R. 90 MG TABLET (FP) PO SCH (13:49)
[2016-07-25] MEDS: guaiFENesin 600 MG TABLET.ER (FP) PO SCH (13:49)
[2016-07-25] MEDS: ALBUTEROL SO4 2.5/IPRATROPIUM 0.5 INH SOL 3 ML VIAL.NEB. NEB SCH ×2 (13:50→15:31)
[2016-07-25] MEDS: METOLAZONE 5 MG TABLET PO SCH (13:50)
[2016-07-25] MEDS: BUDESONIDE/FORMETEROL FUMARATE 160/4.5 mcg INHALER IH SCH (13:50)
[2016-07-25] MEDS: SENNOSIDES 8.6MG TABLET (FP) PO SCH (13:50)
[2016-07-25] MEDS: FUROSEMIDE 40 MG TABLET (FP) PO SCH (13:50)
[2016-07-25] MEDS: GABAPENTIN 100 MG CAPSULE (FP) PO SCH ×2 (13:51→23:04)
[2016-07-25] MEDS ORDERED: ALBUTEROL SO4 0.083% IH SOL 2.5 MG/3 ML VIAL.NEB. NEB ONE (13:59)
[2016-07-25] MEDS ORDERED: ALBUTEROL SO4 2.5/IPRATROPIUM 0.5 INH SOL 3 ML VIAL.NEB. NEB ONE (14:00)
[2016-07-25] MEDS ORDERED: oxyCODONE HCL 5 MG TABLET ONE (14:12)
[2016-07-25] MEDS: oxyCODONE HCL 5 MG TABLET PO PRN ×2 (14:13→23:10)
--- NOTE | 2016-07-25 14:16 | EKG ---
Test Reason : Blood Pressure : / mmHG Vent. Rate : 065 BPM Atrial Rate : 063 BPM P-R Int : 000 ms QRS Dur : 096 ms QT Int : 436 ms P-R-T Axes : 000 027 061 degrees QTc Int : 453 ms PROBABLY SINUS RHYTHM POOR R WAVE PROGRESSION ABNORMAL ECG WHEN COMPARED WITH ECG OF 14-JUN-2016 17:22, NONSPECIFIC T WAVE ABNORMALITY NOW EVIDENT IN LATERAL LEADS CLINICAL CORRELATION IS RECOMMENDED BASELINE ARTIFACT Confirmed by GARRETT VELASQUEZ, DANAE ([id number]) on 07/25/2016 2:15:40 PM Referred By: Confirmed By:DANAE TUCKER MD
[2016-07-25] MEDS: ACETAMINOPHEN 325 MG TABLET (FP) PO PRN (23:01)
[2016-07-25] MEDS: ATORVASTATIN CA 10 MG TABLET (FP) PO SCH (23:04)
[2016-07-25] MEDS: RANITIDINE HCL 150 MG TABLET (FP) PO SCH (23:04)
[2016-07-26] MEDS: INSULIN SLIDING SCALE (NOVOLOG) 1 VIAL SQ SCH ×4 (01:51→16:53)
[2016-07-26] MEDS: BUDESONIDE/FORMETEROL FUMARATE 160/4.5 mcg INHALER IH SCH ×3 (01:52→21:21)
[2016-07-26] MEDS: ACETAMINOPHEN 325 MG TABLET (FP) PO PRN ×2 (05:35→21:20)
[2016-07-26] MEDS: GABAPENTIN 100 MG CAPSULE (FP) PO SCH ×3 (05:36→21:17)
[2016-07-26] MEDS: oxyCODONE HCL 5 MG TABLET PO PRN ×3 (05:36→21:19)
[2016-07-26] MEDS: ALBUTEROL SO4 2.5/IPRATROPIUM 0.5 INH SOL 3 ML VIAL.NEB. NEB SCH ×4 (06:45→17:00)
[2016-07-26] MEDS: INSULIN DETEMIR 100 UNITS/ML MDV SQ SCH (06:53)
[2016-07-26 07:02] LABS: BASOPHIL 0.3 % (0-2.0); EOSINOPHIL 3.1 % (0-4.5); MCH 26.8 pg (25.7-33.7); MCHC 31.9 g/dl (32.0-36.0); NEUTROPHILS 62.2 % (42.8-82.8); PLATELET COUNT 154 K/MM3 (134-434); RDW 16.4 % (11.6-15.6); WHITE BLOOD COUNT 6.2 K/mm3 (4.0-10.0)
[2016-07-26 07:54] LABS: ALBUMIN 2.7 g/dl (3.4-5.0); BILIRUBIN,TOTAL 0.4 mg/dL (0.2-1.0); CALCIUM 8.5 mg/dL (8.5-10.1); COCKROFT - GAULT 56.916; CREATININE 2.7 mg/dL (0.55-1.02); MAGNESIUM 2.3 mg/dL (1.8-2.4); TOT PROT 6.2 g/dl (6.4-8.2)
--- NOTE | 2016-07-26 08:29 | PN ---
Progress Note (short form) - Note Progress Note: Subjective Patient seen and examined. Overall condition same. Feels little better. Cardio follow up noted. Denies chest pain. Mild dyspnea persists. Chief complaint: pain in both hands. Objective Last Vital Signs Temp Pulse Resp BP Pulse Ox 98.5 F 56 L 20 128/41 99 07/26/16 06:00 07/26/16 06:00 07/26/16 06:00 07/26/16 06:00 07/25/16 22:50 CBC, BMP 07/26/16 06:15 07/26/16 06:15 Laboratory Results - last 24 hr 07/25/16 07/25/16 07/25/16 03:05 10:58 20:20 WBC RBC Hgb Hct MCV MCHC RDW Plt Count MPV Neutrophils % Lymphocytes % Monocytes % Eosinophils % Basophils % Sodium Potassium Chloride Carbon Dioxide Anion Gap BUN Creatinine Creat Clearance w eGFR POC Glucometer [phone] Random Glucose Calcium Magnesium Total Bilirubin AST ALT Alkaline Phosphatase Total Protein Albumin Blood Type O POSITIVE Antibody Screen Negative Crossmatch See Detail Spec Expiration Date 07/26/16 07/26/16 07/26/16 05:41 06:15 06:15 WBC 6.2 RBC 2.85 L Hgb 7.7 L D Hct 24.0 L D MCV 84.0 MCHC 31.9 L RDW 16.4 H Plt Count 154 MPV 8.0 Neutrophils % 62.2 Lymphocytes % 24.5 D Monocytes % 9.9 Eosinophils % 3.1 Basophils % 0.3 Sodium 145 Potassium 4.3 Chloride 105 Carbon Dioxide 34 H Anion Gap 6 L BUN 85 H Creatinine 2.7 H Creat Clearance w eGFR 17.42 POC Glucometer 149 Random Glucose 130 H D Calcium 8.5 Magnesium 2.3 Total Bilirubin 0.4 D AST 10 L ALT 11 L D Alkaline Phosphatase 44 L Total Protein 6.2 L Albumin 2.7 L Blood Type Antibody Screen Crossmatch Spec Expiration Date Physical Exam Constitutional: Yes: No Distress, morbidly obese Eyes: Yes: Conjunctiva Clear Neck: Yes: Supple Cardiovascular: Yes: Regular Rate and Rhythm Respiratory: Yes: Diminished Edema: LLE: 2+, RLE: 2+ Neurological: Yes: Alert Psychiatric: Yes: Alert Assessment and Plan Continue diuretics. Will transfuse another units of packed RBCs today. Follow up labs. Will get Xray of hands also. Continue other medications. Will follow. Documentation prepared by Neva Fountain, acting as a biomedical electronics technician for Alicja Lee MD. <Neva Fountain - Last Filed: 07/26/16 10:22> Problem List - Problems (1) Renal failure (ARF), acute on chronic Code(s): N17.9 - ACUTE KIDNEY FAILURE, UNSPECIFIED N18.9 - CHRONIC KIDNEY DISEASE, UNSPECIFIED (2) Afib Code(s): I48.91 - UNSPECIFIED ATRIAL FIBRILLATION Qualifiers: Atrial fibrillation type: persistent Qualified Code(s): I48.1 - Persistent atrial fibrillation (3) Anemia Code(s): D64.9 - ANEMIA, UNSPECIFIED Qualifiers: Anemia type: unspecified type Qualified Code(s): D64.9 - Anemia, unspecified (4) Diabetes 1.5, managed as type 1 Code(s): E13.9 - OTHER SPECIFIED DIABETES MELLITUS WITHOUT COMPLICATIONS (5) Obesity Code(s): E66.9 - OBESITY, UNSPECIFIED (6) Anemia requiring transfusions Code(s): D64.9 - ANEMIA, UNSPECIFIED <Alicja Lee - Last Filed: 07/26/16 08:29>
[2016-07-26] MEDS: NIFEdipine E.R. 90 MG TABLET (FP) PO SCH (10:00)
[2016-07-26] MEDS: FUROSEMIDE 40 MG TABLET (FP) PO SCH (10:17)
[2016-07-26] MEDS: SENNOSIDES 8.6MG TABLET (FP) PO SCH (10:38)
[2016-07-26] MEDS: HEPARIN NA (PORCINE) 5,000 UNITS/ML 1ML VIAL SQ SCH ×2 (10:38→21:16)
[2016-07-26] MEDS: ISOSORBIDE MONONITRATE 60 MG TAB.SR.24H (FP) PO SCH (10:39)
[2016-07-26] MEDS: FERROUS SO4 325 MG TABLET (FP) PO SCH (10:39)
[2016-07-26] MEDS: LACTULOSE 20 GM/30 ML UDC (FOR ORAL USE ONLY) PO SCH (10:39)
[2016-07-26] MEDS: CARVEDILOL 25 MG TABLET (FP) PO SCH (10:39)
[2016-07-26] MEDS: FOLIC ACID 1 MG TABLET (FP) PO SCH (10:39)
[2016-07-26] MEDS: guaiFENesin 600 MG TABLET.ER (FP) PO SCH (10:39)
[2016-07-26] MEDS: DOCUSATE SODIUM 100 MG CAPSULE (FP) PO SCH (10:39)
[2016-07-26] MEDS: TORSEMIDE 20 MG TABLET (FP) PO SCH (11:12)
[2016-07-26] MEDS ORDERED: PT OWN MED DRAWER 7, Y5N ONE ×3 (12:06→21:14)
[2016-07-26] MEDS ORDERED: FUROSEMIDE 40 MG/4 ML INJECTABLE VIAL IVPUSH SCH (14:00)
[2016-07-26] MEDS: METOLAZONE 5 MG TABLET PO SCH (16:53)
--- NOTE | 2016-07-26 18:20 | PN ---
Progress Note (short form) - Note Progress Note: RENAL SENT FROM [facility] FOR LOW HB CLAIMS STOOLS ARE BROWN TRANSFUSED 3 U PRBCS HERE CR AT HER BASELINE 2.7 WEIGHT UP BY 40LBS FROM LAST ADMISSION!! DOUBT IT THOUGH AT [facility] ON LASIX 40 BID ZAROXLYN 5 DAILY HERE ON DEMEDEX 60 DAILY AND ZAROXLYN MUST REDOSE PROCRIT 20K NOW FOLLOW WEIGHTS CHECK UA LEVEL GET RESULT OF STOOL OB FROM [facility] AVOID NSAIDS DOSE ALL MEDS FOR CRCL OF 20
--- NOTE | 2016-07-26 19:08 | PN ---
Progress Note (short form) - Note Progress Note: cc: chf S: s/p tranfusion No orthpnea, cp, sob, palps, dizziness, bleeding Current Medications Acetaminophen (Tylenol -) 650 mg PO Q6H PRN PRN Reason: PAIN Last Admin: 07/26/16 05:35 Dose: 650 mg Albuterol/Ipratropium (Duoneb -) 1 amp NEB QIDR [facility] Last Admin: 07/26/16 17:00 Dose: Not Given Atorvastatin Calcium (Lipitor -) 10 mg PO HS [facility] Last Admin: 07/25/16 23:04 Dose: 10 mg Budesonide/Formoterol Fumarate (Symbicort 160/4.5mcg -) 1 puff IH BID [facility] Last Admin: 07/26/16 14:47 Dose: 1 puff Carvedilol (Coreg -) 25 mg PO DAILY [facility] Last Admin: 07/26/16 10:39 Dose: 25 mg Docusate Sodium (Colace -) 100 mg PO DAILY [facility] Last Admin: 07/26/16 10:39 Dose: 100 mg Fentanyl (Duragesic 25mcg Patch -) 1 patch TD Q72H [facility] Last Admin: 07/25/16 14:10 Dose: Not Given Ferrous Sulfate (Feosol -) 325 mg PO DAILY [facility] Last Admin: 07/26/16 10:39 Dose: 325 mg Folic Acid (Folic Acid -) 1 mg PO DAILY [facility] Last Admin: 07/26/16 10:39 Dose: 1 mg Gabapentin (Neurontin -) 100 mg PO TID [facility] Last Admin: 07/26/16 13:53 Dose: 100 mg Guaifenesin (Mucinex -) 600 mg PO DAILY [facility] Last Admin: 07/26/16 10:39 Dose: 600 mg Heparin Sodium (Porcine) (Heparin -) 5,000 unit SQ BID [facility] Last Admin: 07/26/16 10:38 Dose: 5,000 unit Insulin Aspart (Novolog Vial Sliding Scale -) 1 vial SQ TIDAC [facility] PRN Reason: Protocol Last Admin: 07/26/16 16:53 Dose: Not Given Insulin Detemir (Levemir Vial) 30 units SQ AM [facility] Last Admin: 07/26/16 06:53 Dose: 30 units Isosorbide Mononitrate (Imdur -) 60 mg PO DAILY [facility] Last Admin: 07/26/16 10:39 Dose: 60 mg Lactulose (Cephulac (Oral Use)) 30 gm PO DAILY [facility] Last Admin: 07/26/16 10:39 Dose: 30 gm Metolazone (Zaroxolyn -) 5 mg PO DAILY@0530 [facility] Last Admin: 07/26/16 16:53 Dose: Not Given Miscellaneous (Duragesic Patch Waste) 1 each TD PRN PRN Multivitamins/Minerals (Theragran-M) 1 each PO DAILY [facility] Nifedipine (Procardia Xl -) 90 mg PO DAILY [facility] Last Admin: 07/26/16 10:00 Dose: 90 mg Non-Formulary Medication (Epoetin [place] [Procrit]) 20,000 unit SQ WEEKLY [facility] Oxycodone HCl (Roxicodone -) 10 mg PO TID PRN PRN Reason: PAIN Last Admin: 07/26/16 12:26 Dose: 10 mg Ranitidine HCl (Zantac -) 150 mg PO HS [facility] Last Admin: 07/25/16 23:04 Dose: 150 mg Senna (Senna -) 2 tab PO DAILY [facility] Last Admin: 07/26/16 10:38 Dose: 2 tab Torsemide (Demadex -) 60 mg PO DAILY [facility] Last Admin: 07/26/16 11:12 Dose: 60 mg Vital Signs - 24 hr 07/25/16 07/25/16 07/26/16 20:26 22:50 06:00 Temperature 98.5 F 98.5 F Pulse Rate 56 L 56 L Pulse Rate [ 58 L Right Radial] Respiratory 22 20 20 Rate Blood Pressure 128/41 128/41 Blood Pressure 139/54 [Left Arm] O2 Sat by Pulse 98 99 Oximetry (%) 07/26/16 07/26/16 07/26/16 09:00 10:00 11:11 Temperature 98.0 F Pulse Rate 59 L 55 L Pulse Rate [ Right Radial] Respiratory 20 20 Rate Blood Pressure 121/57 Blood Pressure [Left Arm] O2 Sat by Pulse 98 98 Oximetry (%) 07/26/16 15:43 Temperature 98.4 F Pulse Rate 62 Pulse Rate [ Right Radial] Respiratory 20 Rate Blood Pressure 145/61 Blood Pressure [Left Arm] O2 Sat by Pulse Oximetry (%) Intake & Output 07/24/16 07/25/16 07/26/16 07/27/16 07:59 07:59 07:59 07:59 Intake Total 810 Balance 810 Weight 410 lb 410 lb nad, calm. lying flat in bed morbid obesity ?jvd (tds 2/2 morbid obesity) rrr s1s2 no mrg bibasilar crackles nl eff aaox3 trace le edema no c/c abd nt nd pos bs no jaundice diaphoresis pos dp pt CBC, BMP 07/26/16 06:15 07/26/16 06:15 EKG: Likely SR. early r wave progression (I question proper lead placement 2/2 obesity). non-specific t wave abnormality. portable CXR: suboptimal possible increased congestive changes. echo 09/2015 tds echo 01/2013: tds, nl lvef, valves not seen well cath 11/2007: normal cors 70 f hx pafib, diastolic chf/venous insuff/edema, morbid obesity, htn, hld, dm, ckd, copd, chronic anemia presents with anemia, noted to have pulmonary congestion on CXR anemia - s/p transfusion. Eval/Management per pmd acute diastolic chf exacerbation: - Given significant obesity would recommend torsemide over po lasix for better absorption, con't metolazone - can supplement with IV lasix if edema worsens with transfusions. pafib: -in sr here -cont bb -cont AC with coumadin per INR. will defer to pmd regarding safety of AC in setting of anemia, ? source. - patient with only one EKG with afib (patient with low voltage p wave, that EKG may have been SR with pac's). would try to obtain records of atrial fibrillation diagnosis/history as outpatient if patient is high risk for AC. htn: -stable, cont home meds hld: -cont statin ckd: -near baseline, monitor with diuresis
[2016-07-26] MEDS ORDERED: EPOETIN ALFA 20,000 UNIT/1 ML VIAL SQ SCH (20:15)
[2016-07-26] MEDS: RANITIDINE HCL 150 MG TABLET (FP) PO SCH (21:17)
[2016-07-26] MEDS: ATORVASTATIN CA 10 MG TABLET (FP) PO SCH (21:17)
[2016-07-27] MEDS: ALBUTEROL SO4 2.5/IPRATROPIUM 0.5 INH SOL 3 ML VIAL.NEB. NEB SCH ×3 (06:30→12:00)
[2016-07-27] MEDS: GABAPENTIN 100 MG CAPSULE (FP) PO SCH ×2 (06:53→14:37)
[2016-07-27] MEDS: INSULIN SLIDING SCALE (NOVOLOG) 1 VIAL SQ SCH ×2 (06:54→12:23)
[2016-07-27] MEDS ORDERED: INSULIN DETEMIR 100 UNITS/ML MDV SQ ONE ×2 (07:06→07:09)
[2016-07-27] MEDS: oxyCODONE HCL 5 MG TABLET PO PRN ×2 (07:06→12:17)
[2016-07-27] MEDS: ACETAMINOPHEN 325 MG TABLET (FP) PO PRN ×2 (07:07→12:20)
[2016-07-27] MEDS: METOLAZONE 5 MG TABLET PO SCH (07:08)
[2016-07-27] MEDS: INSULIN DETEMIR 100 UNITS/ML MDV SQ SCH (07:10)
[2016-07-27] MEDS ORDERED: PT OWN MED DRAWER 7, Y5N ONE ×2 (07:34→11:13)
[2016-07-27 08:31] VITALS: TEMP 98.8
[2016-07-27 08:36] LABS: BASOPHIL 0.6 % (0-2.0); EOSINOPHIL 2.3 % (0-4.5); MCH 26.9 pg (25.7-33.7); MCHC 32.3 g/dl (32.0-36.0); MEAN CELL VOLUME 83.2 fl (80-96); MEAN PLT VOLUME 7.8 fl (7.5-11.1); NEUTROPHILS 69.3 % (42.8-82.8); PLATELET COUNT 152 K/MM3 (134-434); WHITE BLOOD COUNT 6.6 K/mm3 (4.0-10.0)
[2016-07-27 09:15] LABS: ALBUMIN 2.7 g/dl (3.4-5.0); BILIRUBIN,TOTAL 0.3 mg/dL (0.2-1.0); CALCIUM 8.4 mg/dL (8.5-10.1); COCKROFT - GAULT 54.8845; CREATININE 2.8 mg/dL (0.55-1.02); TOT PROT 6.2 g/dl (6.4-8.2)
--- NOTE | 2016-07-27 09:17 | DS ---
Physical Examination Vital Signs: Vital Signs Temperature 98.8 F 07/27/16 07:00 Pulse Rate 60 07/27/16 07:00 Respiratory Rate 22 07/27/16 07:00 Blood Pressure 147/51 07/27/16 07:00 O2 Sat by Pulse Oximetry (%) 98 07/26/16 21:00 Findings/Remarks: feels okay Wants to go back to [facility] Denies chest pain Breathing is stable Constitutional: Yes: No Distress, Calm Eyes: Yes: Conjunctiva Clear Neck: Yes: Supple Cardiovascular: Yes: Regular Rate and Rhythm Respiratory: Yes: Diminished Gastrointestinal: Yes: Soft, Abdomen, Obese Edema: LLE: 1+, RLE: 1+ Neurological: Yes: Alert Labs: CBC, BMP 07/27/16 08:15 Discharge Summary Reason For Visit: RENAL FAILURE (ARF) ANEMIA Current Active Problems Anemia requiring transfusions (Acute) Anemia, blood loss (Acute) Renal failure (ARF), acute on chronic (Acute) Hospital Course: The patient is a 70 year old female with history of hypertension, hyperlipidemia , DM, CHF, paroxsysmal atrial fibrillation, asthma, chronic anemia, and morbid obesity, sent from [facility] for transfusion for anemia . On evaluation, the patient complains only of joint pain in her bilateral hands and shoulders secondary to her arthritis. No chest pain, lightheadedness, or shortness of breath. No melena, hematochezia, or hempotysis. pt also found to be in chf/ arf on crf patient treated with diuretics Patient also transfused 3 units of packed RBCs Patient also has complained of pain in the hands--likely due to arthritis--- x- rays showed same Patient can be discharged back to [facility] Patient followed by cardiology as well as renal H&H is stable Chart reviewed Patient did not have INR checked on this admission--- will order stat We will give dose of Coumadin accordingly Discussed with nursing staff Medications reconciled. any GI workup if needed--- to be done as an outpatient--- as per [facility] PMD discharge time--35 minutes in examination/documenting as well as coordinating care . Condition: Improved - Instructions Diet, Activity, Other Instructions: HOLD COUMADIN. REPEAT INR 07/28 AM, AND THEN RE-ASSESS. TODAYS INR=4.04, AND TODAYS DOSE OF COUMADIN HELD. Referrals: [facility] [Outside] Diana Whitmore MD [Primary Care Provider] - Disposition: CUSTODIAL FACILITY - Home Medications Comprehensive Discharge Medication List: Ambulatory Orders Acetaminophen [Tylenol] 650 mg PO BID 05/12/16 Atorvastatin Ca [Lipitor] 10 mg PO HS 05/12/16 Budesonide/Formeterol Fumarate [SYMBICORT 160/4.5mcg -] 1 inh PO BID 05/12/16 Carvedilol [Coreg] 25 mg PO DAILY 05/12/16 Docusate Sodium 100 mg PO DAILY 05/12/16 Epoetin [place] [Procrit] 20,000 unit SQ WEEKLY 05/12/16 FENTANYL 25mcg PATCH [DURAGESIC 25mcg PATCH -] 1 each TD Q72H 05/12/16 Ferrous Sulfate 325 mg PO DAILY 05/12/16 Folic Acid 1 mg PO DAILY 05/12/16 Guaifenesin [Mucinex] 600 mg PO DAILY 05/12/16 Insulin (Levemir) [Levemir Flexpen -] 30 units SQ AM 05/12/16 Isosorbide Mononitrate [Imdur] 60 mg PO DAILY 05/12/16 Lactulose 30 gm PO DAILY 05/12/16 Metolazone [Zaroxolyn -] 5 mg PO DAILY 05/12/16 Oxycodone HCl 10 mg PO TID PRN 05/12/16 Ranitidine [Zantac -] 150 mg PO HS 05/12/16 Sennosides [Senna] 2 tab PO DAILY 05/12/16 Gabapentin 100 mg PO TID 06/15/16 Insulin Aspart [Novolog Flexpen] 0 unit SQ ASDIR 06/15/16 Multivitamin with Minerals [Icaps Plus] 1 each PO DAILY 06/15/16 Acetaminophen [Tylenol .Regular Strength -] 650 mg PO Q6H PRN #0 tablet Albuterol 2.5/Ipratropium 0.5 [Duoneb -] 1 amp NEB QIDR amp 06/18/16 Nifedipine [Procardia Xl] 90 mg PO DAILY #30 tab.er.24 06/18/16 Warfarin Na [Coumadin -] 5 mg PO DAILY@1800 tablet 06/18/16 Insulin Sliding Scale [Novolog Vial Sliding Scale -] 1 vial SQ TIDAC units Torsemide [Demadex -] 60 mg PO DAILY tablet 07/27/16
[2016-07-27] MEDS ORDERED: WARFARIN NA 5 MG TABLET (UD) PO ONE (09:45)
[2016-07-27] MEDS ORDERED: MULTIVITAMINS THER W-MINERALS COMBO TABLET (FP) PO SCH (10:00)
[2016-07-27 10:25] LABS: PROTHROMBIN TIME (PATIENT) 45.7 SEC (9.98-11.88)
[2016-07-27 11:19] LABS: INR 4.04 (0.82-1.09)
[2016-07-27] MEDS: NIFEdipine E.R. 90 MG TABLET (FP) PO SCH (11:23)
[2016-07-27] MEDS: CARVEDILOL 25 MG TABLET (FP) PO SCH (11:24)
[2016-07-27] MEDS: SENNOSIDES 8.6MG TABLET (FP) PO SCH (11:24)
[2016-07-27] MEDS: DOCUSATE SODIUM 100 MG CAPSULE (FP) PO SCH (11:24)
[2016-07-27] MEDS: FOLIC ACID 1 MG TABLET (FP) PO SCH (11:24)
[2016-07-27] MEDS: FERROUS SO4 325 MG TABLET (FP) PO SCH (11:24)
[2016-07-27] MEDS: ISOSORBIDE MONONITRATE 60 MG TAB.SR.24H (FP) PO SCH (11:25)
[2016-07-27] MEDS: TORSEMIDE 20 MG TABLET (FP) PO SCH (11:25)
[2016-07-27] MEDS: LACTULOSE 20 GM/30 ML UDC (FOR ORAL USE ONLY) PO SCH (11:25)
[2016-07-27] MEDS: guaiFENesin 600 MG TABLET.ER (FP) PO SCH (11:25)
[2016-07-27] MEDS: BUDESONIDE/FORMETEROL FUMARATE 160/4.5 mcg INHALER IH SCH (11:26)
[2016-07-27 13:20] VITALS: BP 138/50; PULSE 64
== END 2016-07-27 15:48 | DRG 682 ==
LOC: JER 01:02 → JERBED 05:54 → J5S 22:44
PROVIDERS: ADMIT Internal Medicine; ATTEND Internal Medicine
PROC: 30233N1 Transfusion of Nonautologous Red Blood Cells into Peripheral Vein, Percutaneous Approach (ICD-10-PCS; principal; 2016-07-25)
DX: N17.9 Acute kidney failure, unspecified (principal); I50.31 Acute diastolic (congestive) heart failure; Z68.45 Body mass index [BMI] 70 or greater, adult; I13.0 Hypertensive heart and chronic kidney disease with heart failure and stage 1 through stage 4 chronic kidney disease, or unspecified chronic kidney disease; I48.1 Persistent atrial fibrillation; D50.0 Iron deficiency anemia secondary to blood loss (chronic); J44.9 Chronic obstructive pulmonary disease, unspecified; K21.9 Gastro-esophageal reflux disease without esophagitis; E78.00 Pure hypercholesterolemia, unspecified; E66.01 Morbid (severe) obesity due to excess calories; Z71.3 Dietary counseling and surveillance; M19.012 Primary osteoarthritis, left shoulder; M19.011 Primary osteoarthritis, right shoulder; M19.042 Primary osteoarthritis, left hand; M19.041 Primary osteoarthritis, right hand; N18.9 Chronic kidney disease, unspecified; E11.22 Type 2 diabetes mellitus with diabetic chronic kidney disease; Z79.4 Long term (current) use of insulin; F32.9 Major depressive disorder, single episode, unspecified; I87.2 Venous insufficiency (chronic) (peripheral); Z79.01 Long term (current) use of anticoagulants
CPT/HCPCS: 36415; 36430; 71010-TC; 73130-TC-LT; 73130-TC-RT; 80053; 83735; 85025; 85610; 86850; 86900; 86901; 86922; 93005; 93010; 94010; 94640; 99283-25; J0885; J1644; P9038; P9058

== ENCOUNTER 2016-09-09 16:23 | Inpatient (IN) | payer OTHER ==
[2016-09-09 17:43] LABS: BASOPHIL 0.4 % (0-2.0); EOSINOPHIL 2.7 % (0-4.5); MCH 25.9 pg (25.7-33.7); MCHC 31.3 g/dl (32.0-36.0); MEAN CELL VOLUME 82.7 fl (80-96); MEAN PLT VOLUME 8.3 fl (7.5-11.1); NEUTROPHILS 68.3 % (42.8-82.8); PLATELET COUNT 183 K/MM3 (134-434); RDW 17.2 % (11.6-15.6); WHITE BLOOD COUNT 7.5 K/mm3 (4.0-10.0)
[2016-09-09 18:28] LABS: INR 3.13 (0.82-1.09); PROTHROMBIN TIME (PATIENT) 35.2 SEC (9.98-11.88)
--- NOTE | 2016-09-09 19:27 | PDOC ---
History of Present Illness - General History Source: Patient Exam Limitations: No Limitations - History of Present Illness Initial Comments: 09/09/16 19:42 The patient is a 70 year old female with history of hypertension, hyperlipidemia , DM, CHF, CAD, atrial fibrillation, asthma, chronic anemia (blood transfusions x4) and obesity, sent from [facility] for blood transfusion. She states that her last blood transfusion was 6 weeks ago. Patient had colonoscopy and endoscopic work up that was negative. No nausea, vomiting, diarrhea, chest pain, lightheadedness, or shortness of breath. No melena, hematochezia, hematuria or hemoptysis. PCP - Dr. David Whitmore SH: lives at [facility]. Non smoker. No alcohol or drug use. <Alcira Correa - Last Filed: 09/09/16 19:42> <Allen Li - Last Filed: 09/09/16 20:25> - General Chief Complaint: Blood Transfusion Stated Complaint: BLOOD WORK Time Seen by Provider: 09/09/16 17:01 Past History <Alcira Correa - Last Filed: 09/09/16 19:42> - Past Medical History Anemia: Yes Asthma: Yes Cancer: No Cardiac Disorders: Yes (atrial fibrilation, CHF) CVA: No COPD: Yes CHF: Yes Dementia: No Diabetes: Yes GI Disorders: Yes (GERD) Disorders: Yes (UTI) HTN: Yes Hypercholesterolemia: Yes Liver Disease: No Suicide Attempt (Hx): No Seizures: No Thyroid Disease: No - Surgical History Abdominal Surgery: No Appendectomy: No Cardiac Surgery: No Cholecystectomy: No Lung Surgery: No Neurologic Surgery: No Orthopedic Surgery: Yes (L. Ankle sx, L.leg) - Immunization History Immunization Up to Date: Yes - Psycho/Social/Smoking Cessation Hx Anxiety: No Suicidal Ideation: No Smoking Status: No Smoking History: Unknown if ever smoked Have you smoked in the past 12 months: No Number of Cigarettes Smoked Daily: 0 Hx Alcohol Use: No Drug/Substance Use Hx: No Substance Use Type: None Hx Substance Use Treatment: No <Allen Li - Last Filed: 09/09/16 20:25> - Past Medical History Allergies/Adverse Reactions: Allergies Allergy/AdvReac Type Severity Reaction Status Date / Time No Known Allergies Allergy Verified 07/25/16 01:18 Home Medications: Ambulatory Orders Atorvastatin Ca [Lipitor] 10 mg PO HS 05/12/16 Budesonide/Formeterol Fumarate [SYMBICORT 160/4.5mcg -] 1 inh PO BID 05/12/16 Carvedilol [Coreg] 25 mg PO DAILY 05/12/16 Docusate Sodium 100 mg PO HS 05/12/16 FENTANYL 25mcg PATCH [DURAGESIC 25mcg PATCH -] 1 each TD Q72H 05/12/16 Ferrous Sulfate 325 mg PO DAILY 05/12/16 Folic Acid 1 mg PO DAILY 05/12/16 Guaifenesin [Mucinex] 600 mg PO DAILY 05/12/16 Insulin (Levemir) [Levemir Flexpen -] 30 units SQ AM 05/12/16 Isosorbide Mononitrate [Imdur] 60 mg PO DAILY 05/12/16 Lactulose 30 gm PO DAILY 05/12/16 Metolazone [Zaroxolyn -] 5 mg PO DAILY 05/12/16 Oxycodone HCl 10 mg PO TID PRN 05/12/16 Ranitidine [Zantac -] 150 mg PO DAILY 05/12/16 Sennosides [Senna] 2 tab PO DAILY 05/12/16 Gabapentin 100 mg PO TID 06/15/16 Multivitamin with Minerals [Icaps Plus] 1 each PO DAILY 06/15/16 Acetaminophen [Tylenol .Regular Strength -] 650 mg PO Q6H PRN #0 tablet Albuterol 2.5/Ipratropium 0.5 [Duoneb -] 1 amp NEB QIDR amp 06/18/16 Nifedipine [Procardia Xl] 90 mg PO DAILY #30 tab.er.24 06/18/16 Insulin Sliding Scale [Novolog Vial Sliding Scale -] 1 vial SQ TIDAC units Torsemide [Demadex -] 60 mg PO DAILY tablet 07/27/16 Warfarin Na [Coumadin -] 5 mg PO DAILY@1800 #0 tablet 07/27/16 Review of Systems - Review of Systems Able to Perform ROS?: Yes Comments:: 09/09/16 19:43 CONSTITUTIONAL: No fever, no chills, no fatigue EYES: No visual changes ENT: No ear pain, no sore throat CARDIOVASCULAR: No chest pain, no palpitations RESPIRATORY: No cough, no SOB GI: No abdominal pain, no nausea, no vomiting, no constipation, no diarrhea GENITOURINARY: No dysuria, no frequency, no hematuria MUSCULOSKELETAL: No back pain, no joint pain, no myalgias SKIN: No rash NEURO: No headache <Alcira Correa - Last Filed: 09/09/16 19:42> *Physical Exam - Vital Signs Last Vital Signs Temp Pulse Resp BP Pulse Ox 98.3 F 62 18 141/48 100 09/09/16 16:42 09/09/16 18:48 09/09/16 18:48 09/09/16 18:48 09/09/16 18:48 <Alcira Correa - Last Filed: 09/09/16 19:42> - Vital Signs Last Vital Signs Temp Pulse Resp BP Pulse Ox 98.3 F 62 18 141/48 100 09/09/16 16:42 09/09/16 18:48 09/09/16 18:48 09/09/16 18:48 09/09/16 18:48 - Physical Exam Comments: 09/09/16 18:12 EXAMINATION CONSTITUTIONAL: Awake and alert, morbidly obese, in no apparent distress HEAD: Normocephalic; atraumatic EYES: PERRL; EOM intact; conjunctiva are pale; ENMT: External appears normal; normal oropharynx NECK: Supple; non-tender; no JVD CARD: Bradycardic; Normal S1, S2; no murmurs, rubs, or gallops RESP: Normal chest excursion with respiration; breath sounds are distant due to body habitus and equal bilaterally; no wheezes, rhonchi, or rales ABD: Soft, non-distended; non-tender; no palpable organomegaly, no palpable hernias EXT: Limited range of motion at the hip and knee joints bilaterally due to long- standing osteoarthritis; there is also limited range of motion at the left shoulder due to chronic osteoarthritis; + well healed mid tibial scar to the left lower extremity is noted; non-tender to palpation; distal pulses intact SKIN: Warm, dry, no petechia NEURO: Alert and awake, cranial nerves II through XII are grossly intact; no focal deficits are appreciated; gait is deferred. <Allen Li - Last Filed: 09/09/16 20:25> ED Treatment Course - LABORATORY CBC & Chemistry Diagram: 09/09/16 17:15 09/09/16 18:27 - ADDITIONAL ORDERS Additional order review: Laboratory Results 09/09/16 09/09/16 09/09/16 18:27 17:15 17:15 INR Sodium 143 Cancelled Potassium 6.1 H* D Cancelled Chloride 102 Cancelled Carbon Dioxide 34 H Cancelled Anion Gap 7 L Cancelled BUN 118 H* D Cancelled Creatinine 3.1 H Cancelled Creat Clearance w eGFR 14.85 Cancelled Random Glucose 160 H D Cancelled Calcium 9.1 Cancelled Total Bilirubin 0.2 D Cancelled AST 8 L Cancelled ALT 12 Cancelled Alkaline Phosphatase 52 Cancelled Total Protein 6.8 Cancelled Albumin 3.1 L Cancelled Blood Type O POSITIVE Antibody Screen Negative Crossmatch See Detail 09/09/16 17:15 INR 3.13 H Sodium Potassium Chloride Carbon Dioxide Anion Gap BUN Creatinine Creat Clearance w eGFR Random Glucose Calcium Total Bilirubin AST ALT Alkaline Phosphatase Total Protein Albumin Blood Type Antibody Screen Crossmatch 09/09/16 17:15 RBC 2.57 L MCV 82.7 MCHC 31.3 L RDW 17.2 H MPV 8.3 Neutrophils % 68.3 Lymphocytes % 21.1 Monocytes % 7.5 Eosinophils % 2.7 Basophils % 0.4 <Alcira Correa - Last Filed: 09/09/16 19:42> - LABORATORY CBC & Chemistry Diagram: 09/09/16 17:15 09/09/16 18:27 - ADDITIONAL ORDERS Additional order review: Laboratory Results 09/09/16 09/09/16 09/09/16 17:15 17:15 17:15 INR 3.13 H Sodium Cancelled Potassium Cancelled Chloride Cancelled Carbon Dioxide Cancelled Anion Gap Cancelled BUN Cancelled Creatinine Cancelled Creat Clearance w eGFR Cancelled Random Glucose Cancelled Calcium Cancelled Total Bilirubin Cancelled AST Cancelled ALT Cancelled Alkaline Phosphatase Cancelled Total Protein Cancelled Albumin Cancelled Blood Type O POSITIVE Antibody Screen Negative Crossmatch See Detail 09/09/16 17:15 RBC 2.57 L MCV 82.7 MCHC 31.3 L RDW 17.2 H MPV 8.3 Neutrophils % 68.3 Lymphocytes % 21.1 Monocytes % 7.5 Eosinophils % 2.7 Basophils % 0.4 <Allen Li - Last Filed: 09/09/16 20:25> Medical Decision Making - Medical Decision Making 09/09/16 19:26 Patient is a morbidly obese 70-year-old female with history of chronic anemia, likely to chronic renal insufficiency, with history of previous packed cell transfusions [facility] from [facility] for [facility]H. In the ER, patient is asymptomatic and resting comfortably. Conjunctiva noted to be pale. Lungs are clear. H&H is noted to be 6.6 and 21.3 respectively. Will transfuse 2 units with Lasix between first and second unit. Will admit. 09/09/16 20:25 Patient's BUN and creatinine is noted to be elevated, as well as potassium of 6.1. EKG shows no evidence of hyperacute T waves. Patient's currently receiving packed cells. Will administer Kayexalate, also we'll administer a small bolus of normal saline 250 mL. We'll administer Lasix after completion of transfusion of the first unit. Will continue to observe. <Allen Li - Last Filed: 09/09/16 20:25> *DC/Admit/Observation/Transfer - Attestations Scribe Attestion: 09/09/16 19:43 Documentation prepared by NICOLAS Osorio, acting as remote medical coder for Allen Li MD. <Alcira Correa - Last Filed: 09/09/16 19:42> - Discharge Dispostion Admit: Yes - Attestations Physician Attestion: 09/09/16 19:23 The documentation was prepared by the scribe under my direct supervision. I have reviewed the documentation which correctly represents the findings, medical decision-making and critical action taken by me. <Allen Li - Last Filed: 09/09/16 20:25> Diagnosis at time of Disposition: Anemia requiring transfusions
[2016-09-09 19:29] LABS: ALBUMIN 3.1 g/dl (3.4-5.0); BILIRUBIN,TOTAL 0.2 mg/dL (0.2-1.0); CALCIUM 9.1 mg/dL (8.5-10.1); COCKROFT - GAULT 42.313; CREATININE 3.1 mg/dL (0.55-1.02); TOT PROT 6.8 g/dl (6.4-8.2)
[2016-09-09] MEDS ORDERED: SODIUM CHLORIDE 250 ML IV STA (20:16)
[2016-09-09] MEDS ORDERED: SODIUM POLYSTYRENE SULFONATE 15 GM/60 ML BOTTLE PO ONE (20:17)
[2016-09-09] MEDS ORDERED: SODIUM POLYSTYRENE SULFONATE 15 GM/60 ML BOTTLE ONE (20:49)
[2016-09-09] MEDS ORDERED: fentaNYL 25mcg/hr PATCH.TD72 TD SCH (22:30)
[2016-09-09] MEDS ORDERED: FENTANYL PATCH WASTE TD PRN (23:40)
[2016-09-10 00:28] VITALS: BMI 67.9
[2016-09-10] MEDS: ALBUTEROL SO4 2.5/IPRATROPIUM 0.5 INH SOL 3 ML VIAL.NEB. NEB SCH ×4 (00:58→17:11)
[2016-09-10] MEDS: GABAPENTIN 100 MG CAPSULE (FP) PO SCH ×3 (05:59→22:00)
[2016-09-10] MEDS: INSULIN DETEMIR 100 UNITS/ML MDV SQ SCH (05:59)
[2016-09-10] MEDS: INSULIN SLIDING SCALE (NOVOLOG) 1 VIAL SQ SCH ×4 (05:59→22:00)
[2016-09-10] MEDS ORDERED: FUROSEMIDE 40 MG/4 ML INJECTABLE VIAL IVPUSH ONE (06:00)
[2016-09-10] MEDS: oxyCODONE HCL 5 MG TABLET PO PRN (06:15)
[2016-09-10] MEDS: ACETAMINOPHEN 325 MG TABLET (FP) PO PRN (06:16)
[2016-09-10 07:39] LABS: MCH 26.4 pg (25.7-33.7); MCHC 32.2 g/dl (32.0-36.0); MEAN CELL VOLUME 82.1 fl (80-96); PLATELET COUNT 162 K/MM3 (134-434); RDW 16.6 % (11.6-15.6); WHITE BLOOD COUNT 7.1 K/mm3 (4.0-10.0)
[2016-09-10 07:48] LABS: INR 2.87 (0.82-1.09); PROTHROMBIN TIME (PATIENT) 32.3 SEC (9.98-11.88)
[2016-09-10 08:08] LABS: ALBUMIN 3.1 g/dl (3.4-5.0); BILIRUBIN,TOTAL 0.7 mg/dL (0.2-1.0); CALCIUM 8.3 mg/dL (8.5-10.1); COCKROFT - GAULT 48.076; CREATININE 2.9 mg/dL (0.55-1.02); TOT PROT 6.6 g/dl (6.4-8.2)
--- NOTE | 2016-09-10 08:37 | HP ---
Admitting History and Physical - Past Medical History Cardiovascular: Yes: AFIB (anticoagulants for 5 yrs ), CHF, HTN, Hyperlipdemia. No: CAD Pulmonary: Yes: Asthma, COPD Gastrointestinal: Yes: Constipation, GERD, Hemorrhoids, Other (does not remember about colonscopy ) Renal/: Yes: Renal Inusuff, UTI (h/o recurrent uti) Heme/Onc: Yes: Anemia Psych: Yes: Depression (because son at age 38 yrs by sucide ) Musculoskeletal: Yes: Osteoarthritis Endocrine: Yes: Diabetes Mellitus (IDDM since age 40 yrs ), Other (morbid obesity ) - Past Surgical History Past Surgical History: Yes: (40 years ago per patient) - Smoking History Smoking history: Never smoked Have you smoked in the past 12 months: No Aproximately how many cigarettes per day: 0 - Alcohol/Substance Use Hx Alcohol Use: No History of Substance Use: reports: None <Alicja Lee - Last Filed: 09/10/16 08:37> - Admission History of Present Illness: The patient is a morbidly obese 70-year-old woman with a significant past medical history of chronic anemia (previous packed cell transfusions), hypertension, hyperchoelsterolemia, atrial fibrillation, congestive heart failure, asthma,. chronic obstructive pulmonary disease, diabetes mellitus, renal insufficiency, urinary tract infection, osteoarthritis and depression who presented from [facility] to the emergency department for evaluation of a low H&H. Patient well known to me from previous admissions requiring transfusions. Patient received 2 units of pRBCs. Chart reviewed. Patient seen by me on Telemetry floor. Comfortable. Feels much better. Denies chest pain or shortness of breath. Reports that she felt very weak yesterday in the [facility]. <Colleen Peck - Last Filed: 09/10/16 11:16> Home Medications <Alicja Lee - Last Filed: 09/10/16 08:37> <Colleen Peck - Last Filed: 09/10/16 11:16> - Allergies Allergies/Adverse Reactions: Allergies Allergy/AdvReac Type Severity Reaction Status Date / Time No Known Allergies Allergy Verified 07/25/16 01:18 - Home Medications Home Medications: Ambulatory Orders Atorvastatin Ca [Lipitor] 10 mg PO HS 05/12/16 Budesonide/Formeterol Fumarate [SYMBICORT 160/4.5mcg -] 1 inh PO BID 05/12/16 Carvedilol [Coreg] 25 mg PO DAILY 05/12/16 Docusate Sodium 100 mg PO HS 05/12/16 FENTANYL 25mcg PATCH [DURAGESIC 25mcg PATCH -] 1 each TD Q72H 05/12/16 Ferrous Sulfate 325 mg PO DAILY 05/12/16 Folic Acid 1 mg PO DAILY 05/12/16 Guaifenesin [Mucinex] 600 mg PO DAILY 05/12/16 Insulin (Levemir) [Levemir Flexpen -] 30 units SQ AM 05/12/16 Isosorbide Mononitrate [Imdur] 60 mg PO DAILY 05/12/16 Lactulose 30 gm PO DAILY 05/12/16 Metolazone [Zaroxolyn -] 5 mg PO DAILY 05/12/16 Oxycodone HCl 10 mg PO TID PRN 05/12/16 Ranitidine [Zantac -] 150 mg PO DAILY 05/12/16 Sennosides [Senna] 2 tab PO DAILY 05/12/16 Gabapentin 100 mg PO TID 06/15/16 Multivitamin with Minerals [Icaps Plus] 1 each PO DAILY 06/15/16 Acetaminophen [Tylenol .Regular Strength -] 650 mg PO Q6H PRN #0 tablet Albuterol 2.5/Ipratropium 0.5 [Duoneb -] 1 amp NEB QIDR amp 06/18/16 Nifedipine [Procardia Xl] 90 mg PO DAILY #30 tab.er.24 06/18/16 Insulin Sliding Scale [Novolog Vial Sliding Scale -] 1 vial SQ TIDAC units Torsemide [Demadex -] 60 mg PO DAILY tablet 07/27/16 Warfarin Na [Coumadin -] 5 mg PO DAILY@1800 #0 tablet 07/27/16 Family Disease History - Family Disease History Family Disease History: Diabetes: Father, Mother <Alicja Lee - Last Filed: 09/10/16 08:37> Review of Systems Unable to obtain ROS, reason: See HPI. <Colleen Peck - Last Filed: 09/10/16 11:16> Physical Examination Vital Signs: Vital Signs Temperature 97.7 F 09/10/16 06:16 Pulse Rate 64 09/10/16 06:16 Respiratory Rate 20 09/10/16 06:16 Blood Pressure 147/75 09/10/16 06:16 O2 Sat by Pulse Oximetry (%) 99 09/09/16 22:00 Labs: CBC, [facility] 09/10/16 06:25 09/10/16 06:25 <Alicja Lee - Last Filed: 09/10/16 08:37> Vital Signs: Vital Signs Temperature 97.7 F 09/10/16 06:16 Pulse Rate 64 09/10/16 06:16 Respiratory Rate 20 09/10/16 06:16 Blood Pressure 147/75 09/10/16 06:16 O2 Sat by Pulse Oximetry (%) 99 09/09/16 22:00 Constitutional: Yes: No Distress, Calm, Obese (Morbidly) Eyes: Yes: Conjunctiva Clear Neck: Yes: Supple Cardiovascular: Yes: Regular Rate and Rhythm Respiratory: Yes: CTA Bilaterally Gastrointestinal: Yes: Soft, Abdomen, Obese Edema: No Neurological: Yes: Alert Labs: CBC, [facility] 09/10/16 06:25 09/10/16 06:25 <Colleen Peck - Last Filed: 09/10/16 11:16> Imaging - Results Chest X-ray: Report Reviewed EKG: Report Reviewed <Colleen Peck - Last Filed: 09/10/16 11:16> Problem List - Problems (1) Anemia requiring transfusions Code(s): D64.9 - ANEMIA, UNSPECIFIED (2) Afib Code(s): I48.91 - UNSPECIFIED ATRIAL FIBRILLATION Qualifiers: Atrial fibrillation type: persistent Qualified Code(s): I48.1 - Persistent atrial fibrillation <Colleen Peck - Last Filed: 09/10/16 11:16> Assessment/Plan - Clinically stable and better. - CBC was done right after transfusion. - Probably not correct. - Will order a repeat today. - No sign of bleeding. - Check stool for occult blood. - Will consult Hematology also. - Will follow. Documentation prepared by Colleen Peck, acting as a certified medical dosimetrist for Alicja Lee MD. <Colleen Peck - Last Filed: 09/10/16 11:16>
--- NOTE | 2016-09-10 09:48 | EKG ---
Test Reason : Blood Pressure : / mmHG Vent. Rate : 054 BPM Atrial Rate : 057 BPM P-R Int : 000 ms QRS Dur : 104 ms QT Int : 462 ms P-R-T Axes : 000 046 053 degrees QTc Int : 438 ms PROBABLY SINUS BRADYCARDIA POOR DATA QUALITY, INTERPRETATION MAY BE ADVERSELY AFFECTED ABNORMAL ECG Confirmed by SHELLEY MEDEL MD ([id number]) on 09/10/2016 9:47:40 AM Referred By: Confirmed By:SHELLEY MEDEL MD
[2016-09-10] MEDS: MULTIVITAMINS THER W-MINERALS COMBO TABLET (FP) PO SCH (10:09)
[2016-09-10] MEDS: METOLAZONE 5 MG TABLET PO SCH (10:10)
[2016-09-10] MEDS: guaiFENesin 600 MG TABLET.ER (FP) PO SCH (10:10)
[2016-09-10] MEDS: SENNOSIDES 8.6MG TABLET (FP) PO SCH (10:10)
[2016-09-10] MEDS: CARVEDILOL 25 MG TABLET (FP) PO SCH (10:11)
[2016-09-10] MEDS: FERROUS SO4 325 MG TABLET (FP) PO SCH (10:11)
[2016-09-10] MEDS: ISOSORBIDE MONONITRATE 60 MG TAB.SR.24H (FP) PO SCH (10:12)
[2016-09-10] MEDS: FOLIC ACID 1 MG TABLET (FP) PO SCH (10:12)
[2016-09-10] MEDS ORDERED: PT OWN MED DRAWER 7, Y5N ONE ×2 (10:30→21:55)
[2016-09-10] MEDS: TORSEMIDE 20 MG TABLET (FP) PO SCH (10:35)
[2016-09-10] MEDS: NIFEdipine E.R. 90 MG TABLET (FP) PO SCH (10:35)
[2016-09-10 10:39] LABS: MCH 26.7 pg (25.7-33.7); MCHC 32.4 g/dl (32.0-36.0); MEAN CELL VOLUME 82.1 fl (80-96); MEAN PLT VOLUME 7.3 fl (7.5-11.1); PLATELET COUNT 148 K/MM3 (134-434); RDW 16.9 % (11.6-15.6); WHITE BLOOD COUNT 6.6 K/mm3 (4.0-10.0)
[2016-09-10] MEDS: fentaNYL 25mcg/hr PATCH.TD72 TD SCH (10:51)
[2016-09-10] MEDS: BUDESONIDE/FORMETEROL FUMARATE 160/4.5 mcg INHALER IH SCH ×2 (11:34→22:00)
[2016-09-10] MEDS: LACTULOSE 20 GM/30 ML UDC (FOR ORAL USE ONLY) PO SCH (11:35)
[2016-09-10 11:40] LABS: PLATELET ESTIMATE ADEQUATE (NORMAL)
[2016-09-10] MEDS: RANITIDINE HCL 150 MG TABLET (FP) PO SCH (12:09)
[2016-09-10] MEDS ORDERED: WARFARIN NA 5 MG TABLET (UD) PO SCH (18:00)
[2016-09-10] MEDS: DOCUSATE SODIUM 100 MG CAPSULE (FP) PO SCH (22:00)
[2016-09-10] MEDS: ATORVASTATIN CA 10 MG TABLET (FP) PO SCH (22:00)
[2016-09-10 22:31] LABS: MCH 26.5 pg (25.7-33.7); MCHC 31.9 g/dl (32.0-36.0); MEAN PLT VOLUME 8.2 fl (7.5-11.1); PLATELET COUNT 162 K/MM3 (134-434); WHITE BLOOD COUNT 7.3 K/mm3 (4.0-10.0)
--- NOTE | 2016-09-11 00:03 | CONSULT ---
Consult - text type - Consultation Consultation Note: PAtient seen and examined The patient is a 70 year old female with history of hypertension, hyperlipidemia , DM, CHF, CAD, atrial fibrillation, asthma, chronic anemia (blood transfusions x4) and obesity, sent from [facility] for blood transfusion. She states that her last blood transfusion was 6 weeks ago. Patient had colonoscopy and endoscopic work up that was negative. No nausea, vomiting, diarrhea, chest pain, lightheadedness, or shortness of breath. No melena, hematochezia, hematuria or hemoptysis. SH: lives at [facility]. Non smoker. No alcohol or drug use. - Past Medical History morbid obesity Anemia: Yes Asthma: Yes Cardiac Disorders: Yes (atrial fibrilation, CHF) COPD: Yes CHF: Yes Diabetes: Yes GI Disorders: Yes (GERD) Disorders: Yes (UTI) HTN: Yes Hypercholesterolemia: Yes - Surgical History Orthopedic Surgery: Yes (L. Ankle sx, L.leg) - Psycho/Social/Smoking Cessation Hx Smoking History: Unknown if ever smoked Allergies/Adverse Reactions: Allergies Allergy/AdvReac Type Severity Reaction Status Date / Time No Known Allergies Allergy Verified 07/25/16 01:18 Home Medications: Ambulatory Orders Atorvastatin Ca [Lipitor] 10 mg PO HS 05/12/16 Budesonide/Formeterol Fumarate [SYMBICORT 160/4.5mcg -] 1 inh PO BID 05/12/16 Carvedilol [Coreg] 25 mg PO DAILY 05/12/16 Docusate Sodium 100 mg PO HS 05/12/16 FENTANYL 25mcg PATCH [DURAGESIC 25mcg PATCH -] 1 each TD Q72H 05/12/16 Ferrous Sulfate 325 mg PO DAILY 05/12/16 Folic Acid 1 mg PO DAILY 05/12/16 Guaifenesin [Mucinex] 600 mg PO DAILY 05/12/16 Insulin (Levemir) [Levemir Flexpen -] 30 units SQ AM 05/12/16 Isosorbide Mononitrate [Imdur] 60 mg PO DAILY 05/12/16 Lactulose 30 gm PO DAILY 05/12/16 Metolazone [Zaroxolyn -] 5 mg PO DAILY 05/12/16 Oxycodone HCl 10 mg PO TID PRN 05/12/16 Ranitidine [Zantac -] 150 mg PO DAILY 05/12/16 Sennosides [Senna] 2 tab PO DAILY 05/12/16 Gabapentin 100 mg PO TID 06/15/16 Multivitamin with Minerals [Icaps Plus] 1 each PO DAILY 06/15/16 Acetaminophen [Tylenol .Regular Strength -] 650 mg PO Q6H PRN #0 tablet Albuterol 2.5/Ipratropium 0.5 [Duoneb -] 1 amp NEB QIDR amp 06/18/16 Nifedipine [Procardia Xl] 90 mg PO DAILY #30 tab.er.24 06/18/16 Insulin Sliding Scale [Novolog Vial Sliding Scale -] 1 vial SQ TIDAC units Torsemide [Demadex -] 60 mg PO DAILY tablet 07/27/16 Warfarin Na [Coumadin -] 5 mg PO DAILY@1800 #0 tablet 07/27/16 - Vital Signs AFVSS CONSTITUTIONAL: Awake and alert, morbidly obese, in no apparent distress HEAD: Normocephalic; atraumatic NECK: Supple; non-tender; no JVD CARD: Bradycardic; Normal S1, S2; no murmurs, rubs, or gallops RESP: Normal chest excursion with respiration; breath sounds are distant due to body habitus and equal bilaterally; no wheezes, rhonchi, or rales ABD: Soft, non-distended; non-tender; no palpable organomegaly, no palpable hernias. obese A/P Patient is a morbidly obese 70-year-old female with history of chronic anemia, likely to chronic renal insufficiency, with history of previous packed cell transfusions presents from care home for low H&H. Recent EGD/colonoscopy unrevealing per patient. Anemia w/u ordered ? chronic disease ? gi losses ? iv iron increase procrit
[2016-09-11] MEDS: ALBUTEROL SO4 2.5/IPRATROPIUM 0.5 INH SOL 3 ML VIAL.NEB. NEB SCH ×3 (00:20→11:11)
[2016-09-11] MEDS: INSULIN SLIDING SCALE (NOVOLOG) 1 VIAL SQ SCH ×4 (06:14→22:17)
[2016-09-11] MEDS: INSULIN DETEMIR 100 UNITS/ML MDV SQ SCH (06:14)
[2016-09-11] MEDS: GABAPENTIN 100 MG CAPSULE (FP) PO SCH ×3 (06:14→22:07)
[2016-09-11 08:13] LABS: BASOPHIL 0.5 % (0-2.0); EOSINOPHIL 3.2 % (0-4.5); MCH 26.7 pg (25.7-33.7); MCHC 32.6 g/dl (32.0-36.0); MEAN CELL VOLUME 82.1 fl (80-96); NEUTROPHILS 68.1 % (42.8-82.8); PLATELET COUNT 152 K/MM3 (134-434); RDW 16.4 % (11.6-15.6); WHITE BLOOD COUNT 7.7 K/mm3 (4.0-10.0)
[2016-09-11 08:17] LABS: INR 3.03 (0.82-1.09); PROTHROMBIN TIME (PATIENT) 34.1 SEC (9.98-11.88)
[2016-09-11 08:35] LABS: FERRITIN 71.373 ng/ml (6.9-282.5); FREE T4 1.19 ng/dl (0.76-1.46)
[2016-09-11 08:56] LABS: BILIRUBIN,TOTAL 0.3 mg/dL (0.2-1.0); CALCIUM 8.5 mg/dL (8.5-10.1); COCKROFT - GAULT 44.4635; CREATININE 2.9 mg/dL (0.55-1.02); THYROID STIMULATING HORMONE 1.42 uIU/ml (0.358-3.74); TOT PROT 6.6 g/dl (6.4-8.2)
[2016-09-11] MEDS ORDERED: PT OWN MED DRAWER 7, Y5N ONE (10:47)
[2016-09-11] MEDS: NIFEdipine E.R. 90 MG TABLET (FP) PO SCH (10:49)
[2016-09-11] MEDS: ISOSORBIDE MONONITRATE 60 MG TAB.SR.24H (FP) PO SCH (10:49)
[2016-09-11] MEDS: MULTIVITAMINS THER W-MINERALS COMBO TABLET (FP) PO SCH (10:49)
[2016-09-11] MEDS: CARVEDILOL 25 MG TABLET (FP) PO SCH (10:49)
[2016-09-11] MEDS: RANITIDINE HCL 150 MG TABLET (FP) PO SCH (10:49)
[2016-09-11] MEDS: LACTULOSE 20 GM/30 ML UDC (FOR ORAL USE ONLY) PO SCH (10:49)
[2016-09-11] MEDS: METOLAZONE 5 MG TABLET PO SCH (10:49)
[2016-09-11] MEDS: FOLIC ACID 1 MG TABLET (FP) PO SCH (10:49)
[2016-09-11] MEDS: SENNOSIDES 8.6MG TABLET (FP) PO SCH (10:49)
[2016-09-11] MEDS: guaiFENesin 600 MG TABLET.ER (FP) PO SCH (10:49)
[2016-09-11] MEDS: FERROUS SO4 325 MG TABLET (FP) PO SCH (10:50)
[2016-09-11] MEDS: TORSEMIDE 20 MG TABLET (FP) PO SCH (10:50)
[2016-09-11] MEDS: BUDESONIDE/FORMETEROL FUMARATE 160/4.5 mcg INHALER IH SCH ×2 (10:58→22:09)
--- NOTE | 2016-09-11 12:01 | PN ---
Progress Note, Physician Chief Complaint: Events noted No distress No active bleeding No SOB - Current Medication List Current Medications: Active Medications Acetaminophen (Tylenol -) 650 mg PO Q6H PRN PRN Reason: PAIN Last Admin: 09/10/16 06:16 Dose: 650 mg Albuterol/Ipratropium (Duoneb -) 1 amp NEB QIDR [facility] Last Admin: 09/11/16 11:11 Dose: 1 amp Atorvastatin Calcium (Lipitor -) 10 mg PO HS [facility] Last Admin: 09/10/16 22:00 Dose: 10 mg Budesonide/Formoterol Fumarate (Symbicort 160/4.5mcg -) 1 puff IH BID [facility] Last Admin: 09/11/16 10:58 Dose: 1 puff Carvedilol (Coreg -) 25 mg PO DAILY [facility] Last Admin: 09/11/16 10:49 Dose: 25 mg Docusate Sodium (Colace -) 100 mg PO HS [facility] Last Admin: 09/10/16 22:00 Dose: 100 mg Fentanyl (Duragesic 25mcg Patch -) 1 patch TD Q72H [facility] Last Admin: 09/10/16 10:51 Dose: 1 patch Ferrous Sulfate (Feosol -) 325 mg PO DAILY [facility] Last Admin: 09/11/16 10:50 Dose: 325 mg Folic Acid (Folic Acid -) 1 mg PO DAILY [facility] Last Admin: 09/11/16 10:49 Dose: 1 mg Gabapentin (Neurontin -) 100 mg PO TID [facility] Last Admin: 09/11/16 06:14 Dose: 100 mg Guaifenesin (Mucinex -) 600 mg PO DAILY [facility] Last Admin: 09/11/16 10:49 Dose: 600 mg Insulin Aspart (Novolog Vial Sliding Scale -) 1 vial SQ ACHS [facility] PRN Reason: Protocol Last Admin: 09/11/16 06:14 Dose: Not Given Insulin Detemir (Levemir Vial) 30 units SQ AM [facility] Last Admin: 09/11/16 06:14 Dose: 30 units Isosorbide Mononitrate (Imdur -) 60 mg PO DAILY [facility] Last Admin: 09/11/16 10:49 Dose: 60 mg Lactulose (Cephulac (Oral Use)) 30 gm PO DAILY [facility] Last Admin: 09/11/16 10:49 Dose: 30 gm Metolazone (Zaroxolyn -) 5 mg PO DAILY [facility] Last Admin: 09/11/16 10:49 Dose: 5 mg Miscellaneous (Duragesic Patch Waste) 1 each TD PRN PRN Multivitamins/Minerals (Theragran-M) 1 each PO DAILY [facility] Last Admin: 09/11/16 10:49 Dose: 1 each Nifedipine (Procardia Xl -) 90 mg PO DAILY [facility] Last Admin: 09/11/16 10:49 Dose: 90 mg Oxycodone HCl (Roxicodone -) 10 mg PO Q8H PRN Last Admin: 09/10/16 06:15 Dose: 10 mg Ranitidine HCl (Zantac -) 150 mg PO DAILY [facility] Last Admin: 09/11/16 10:49 Dose: 150 mg Senna (Senna -) 2 tab PO DAILY [facility] Last Admin: 09/11/16 10:49 Dose: 2 tab Torsemide (Demadex -) 60 mg PO DAILY [facility] Last Admin: 09/11/16 10:50 Dose: 60 mg Warfarin Sodium (Coumadin -) 5 mg PO DAILY@1800 [facility] Last Admin: 09/10/16 20:22 Dose: 5 mg - Objective Vital Signs: Vital Signs Temperature 97.8 F 09/11/16 08:00 Pulse Rate 78 09/11/16 11:11 Respiratory Rate 20 09/11/16 08:00 Blood Pressure 128/42 09/11/16 08:00 O2 Sat by Pulse Oximetry (%) 98 09/11/16 11:11 Constitutional: Yes: No Distress Cardiovascular: Yes: Pulse Irregular Respiratory: Yes: Diminished Gastrointestinal: Yes: Normal Bowel Sounds, Soft, Abdomen, Obese. No: Distention, Tenderness Edema: Yes Edema: LLE: 2+, RLE: 2+ Labs: CBC, BMP 09/11/16 06:30 09/11/16 06:30 INR, PTT INR 3.03 (0.82-1.09) H 09/11/16 06:30 Problem List - Problems (1) Anemia requiring transfusions Code(s): D64.9 - ANEMIA, UNSPECIFIED (2) Acute on chronic renal insufficiency Code(s): N28.9 - DISORDER OF KIDNEY AND URETER, UNSPECIFIED N18.9 - CHRONIC KIDNEY DISEASE, UNSPECIFIED (3) Afib Code(s): I48.91 - UNSPECIFIED ATRIAL FIBRILLATION Qualifiers: Atrial fibrillation type: persistent Qualified Code(s): I48.1 - Persistent atrial fibrillation Assessment/Plan PLAN Hold coumadin today as INR elevated continue with Diuretics stable creatinine BUN trending down pt does not wish to undergo any further GI procedures--- she had EGD and colonoscopy in the past Hematology eval appreciated continue with meds Nebs as needed
[2016-09-11] MEDS: ALBUTEROL SO4 2.5/IPRATROPIUM 0.5 INH SOL 3 ML VIAL.NEB. NEB PRN (17:49)
[2016-09-11] MEDS: DOCUSATE SODIUM 100 MG CAPSULE (FP) PO SCH (22:07)
[2016-09-11] MEDS: ATORVASTATIN CA 10 MG TABLET (FP) PO SCH (22:07)
[2016-09-12] MEDS: ALBUTEROL SO4 2.5/IPRATROPIUM 0.5 INH SOL 3 ML VIAL.NEB. NEB PRN ×5 (00:07→23:32)
[2016-09-12] MEDS: INSULIN DETEMIR 100 UNITS/ML MDV SQ SCH (06:26)
[2016-09-12] MEDS: INSULIN SLIDING SCALE (NOVOLOG) 1 VIAL SQ SCH ×4 (06:27→22:07)
[2016-09-12] MEDS: GABAPENTIN 100 MG CAPSULE (FP) PO SCH ×3 (06:46→22:02)
[2016-09-12] MEDS: oxyCODONE HCL 5 MG TABLET PO PRN (07:03)
[2016-09-12] MEDS: ACETAMINOPHEN 325 MG TABLET (FP) PO PRN (07:04)
[2016-09-12 08:08] LABS: CALCIUM 8.7 mg/dL (8.5-10.1); COCKROFT - GAULT 48.382; CREATININE 2.8 mg/dL (0.55-1.02)
[2016-09-12 08:24] LABS: MCH 26.5 pg (25.7-33.7); MEAN CELL VOLUME 82.8 fl (80-96); MEAN PLT VOLUME 8.2 fl (7.5-11.1); PLATELET COUNT 148 K/MM3 (134-434); RDW 16.4 % (11.6-15.6); WHITE BLOOD COUNT 7.9 K/mm3 (4.0-10.0)
[2016-09-12 08:36] LABS: INR 3.34 (0.82-1.09); PROTHROMBIN TIME (PATIENT) 37.7 SEC (9.98-11.88)
--- NOTE | 2016-09-12 09:02 | PN ---
Progress Note, Physician Chief Complaint: No distress No active bleeding No SOB - Current Medication List Current Medications: Active Medications Acetaminophen (Tylenol -) 650 mg PO Q6H PRN PRN Reason: PAIN Last Admin: 09/12/16 07:04 Dose: 650 mg Albuterol/Ipratropium (Duoneb -) 1 amp NEB QIDR PRN PRN Reason: SHORT OF BREATH/WHEEZING Last Admin: 09/12/16 06:21 Dose: 1 amp Atorvastatin Calcium (Lipitor -) 10 mg PO HS [facility] Last Admin: 09/11/16 22:07 Dose: 10 mg Budesonide/Formoterol Fumarate (Symbicort 160/4.5mcg -) 1 puff IH BID [facility] Last Admin: 09/11/16 22:09 Dose: 1 puff Carvedilol (Coreg -) 25 mg PO DAILY [facility] Last Admin: 09/11/16 10:49 Dose: 25 mg Docusate Sodium (Colace -) 100 mg PO HS [facility] Last Admin: 09/11/16 22:07 Dose: 100 mg Fentanyl (Duragesic 25mcg Patch -) 1 patch TD Q72H [facility] Last Admin: 09/10/16 10:51 Dose: 1 patch Ferrous Sulfate (Feosol -) 325 mg PO DAILY [facility] Last Admin: 09/11/16 10:50 Dose: 325 mg Folic Acid (Folic Acid -) 1 mg PO DAILY [facility] Last Admin: 09/11/16 10:49 Dose: 1 mg Gabapentin (Neurontin -) 100 mg PO TID [facility] Last Admin: 09/12/16 06:46 Dose: 100 mg Guaifenesin (Mucinex -) 600 mg PO DAILY [facility] Last Admin: 09/11/16 10:49 Dose: 600 mg Insulin Aspart (Novolog Vial Sliding Scale -) 1 vial SQ ACHS [facility] PRN Reason: Protocol Last Admin: 09/12/16 06:27 Dose: Not Given Insulin Detemir (Levemir Vial) 30 units SQ AM [facility] Last Admin: 09/12/16 06:26 Dose: 30 units Isosorbide Mononitrate (Imdur -) 60 mg PO DAILY [facility] Last Admin: 09/11/16 10:49 Dose: 60 mg Lactulose (Cephulac (Oral Use)) 30 gm PO DAILY [facility] Last Admin: 09/11/16 10:49 Dose: 30 gm Metolazone (Zaroxolyn -) 5 mg PO DAILY [facility] Last Admin: 09/11/16 10:49 Dose: 5 mg Miscellaneous (Duragesic Patch Waste) 1 each TD PRN PRN Multivitamins/Minerals (Theragran-M) 1 each PO DAILY [facility] Last Admin: 09/11/16 10:49 Dose: 1 each Nifedipine (Procardia Xl -) 90 mg PO DAILY [facility] Last Admin: 09/11/16 10:49 Dose: 90 mg Oxycodone HCl (Roxicodone -) 10 mg PO Q8H PRN Last Admin: 09/12/16 07:03 Dose: 10 mg Ranitidine HCl (Zantac -) 150 mg PO DAILY [facility] Last Admin: 09/11/16 10:49 Dose: 150 mg Senna (Senna -) 2 tab PO DAILY [facility] Last Admin: 09/11/16 10:49 Dose: 2 tab Torsemide (Demadex -) 60 mg PO DAILY [facility] Last Admin: 09/11/16 10:50 Dose: 60 mg Warfarin Sodium (Coumadin -) 5 mg PO DAILY@1800 [facility] Last Admin: 09/10/16 20:22 Dose: 5 mg - Objective Vital Signs: Vital Signs Temperature 98.1 F 09/12/16 08:00 Pulse Rate 58 L 09/12/16 08:00 Respiratory Rate 18 09/12/16 08:00 Blood Pressure 149/56 09/12/16 08:00 O2 Sat by Pulse Oximetry (%) 98 09/11/16 21:00 Constitutional: Yes: No Distress Cardiovascular: Yes: Pulse Irregular Respiratory: Yes: Diminished. No: Rales, Rhonchi Gastrointestinal: Yes: Normal Bowel Sounds, Soft, Abdomen, Obese. No: Distention, Tenderness Edema: Yes Edema: LLE: 1+, RLE: 1+ Psychiatric: Yes: Alert, Oriented Labs: CBC, BMP 09/12/16 07:00 09/12/16 07:00 INR, PTT INR 3.34 (0.82-1.09) H 09/12/16 07:00 Problem List - Problems (1) Anemia requiring transfusions Code(s): D64.9 - ANEMIA, UNSPECIFIED (2) Acute on chronic renal insufficiency Code(s): N28.9 - DISORDER OF KIDNEY AND URETER, UNSPECIFIED N18.9 - CHRONIC KIDNEY DISEASE, UNSPECIFIED (3) Afib Code(s): I48.91 - UNSPECIFIED ATRIAL FIBRILLATION Qualifiers: Atrial fibrillation type: persistent Qualified Code(s): I48.1 - Persistent atrial fibrillation
[2016-09-12] MEDS ORDERED: PT OWN MED DRAWER 7, Y5N ONE ×2 (10:11→21:32)
[2016-09-12] MEDS: LACTULOSE 20 GM/30 ML UDC (FOR ORAL USE ONLY) PO SCH (10:17)
[2016-09-12] MEDS: TORSEMIDE 20 MG TABLET (FP) PO SCH (10:17)
[2016-09-12] MEDS: SENNOSIDES 8.6MG TABLET (FP) PO SCH (10:18)
[2016-09-12] MEDS: RANITIDINE HCL 150 MG TABLET (FP) PO SCH (10:18)
[2016-09-12] MEDS: guaiFENesin 600 MG TABLET.ER (FP) PO SCH (10:18)
[2016-09-12] MEDS: MULTIVITAMINS THER W-MINERALS COMBO TABLET (FP) PO SCH (10:18)
[2016-09-12] MEDS: FERROUS SO4 325 MG TABLET (FP) PO SCH (10:18)
[2016-09-12] MEDS: FOLIC ACID 1 MG TABLET (FP) PO SCH (10:18)
[2016-09-12] MEDS: ISOSORBIDE MONONITRATE 60 MG TAB.SR.24H (FP) PO SCH (10:18)
[2016-09-12] MEDS: CARVEDILOL 25 MG TABLET (FP) PO SCH (10:18)
[2016-09-12] MEDS: BUDESONIDE/FORMETEROL FUMARATE 160/4.5 mcg INHALER IH SCH ×2 (10:19→22:01)
[2016-09-12] MEDS: METOLAZONE 5 MG TABLET PO SCH (10:19)
[2016-09-12] MEDS ORDERED: INSULIN (NOVOLOG) ASPART 100 UNITS/ML 10ML VIAL ONE (11:23)
[2016-09-12] MEDS: NIFEdipine E.R. 90 MG TABLET (FP) PO SCH (11:38)
[2016-09-12] MEDS: ATORVASTATIN CA 10 MG TABLET (FP) PO SCH (22:02)
[2016-09-12] MEDS: DOCUSATE SODIUM 100 MG CAPSULE (FP) PO SCH (22:02)
[2016-09-13 06:10] LABS: SERUM IRON 27 ug/dL (27-139); TOTAL IRON BINDING CAPACITY 229 ug/dL (250-450); UIBC 202 ug/dL (118-369)
[2016-09-13] MEDS: INSULIN DETEMIR 100 UNITS/ML MDV SQ SCH (06:30)
[2016-09-13] MEDS: GABAPENTIN 100 MG CAPSULE (FP) PO SCH (06:30)
[2016-09-13] MEDS: INSULIN SLIDING SCALE (NOVOLOG) 1 VIAL SQ SCH ×2 (06:34→11:50)
[2016-09-13 07:22] LABS: MCH 26.9 pg (25.7-33.7); MCHC 32.2 g/dl (32.0-36.0); MEAN CELL VOLUME 83.5 fl (80-96); MEAN PLT VOLUME 8.1 fl (7.5-11.1); PLATELET COUNT 144 K/MM3 (134-434); RDW 16.5 % (11.6-15.6); WHITE BLOOD COUNT 7.2 K/mm3 (4.0-10.0)
[2016-09-13 07:28] LABS: CALCIUM 8.6 mg/dL (8.5-10.1); COCKROFT - GAULT 47.4725; CREATININE 2.7 mg/dL (0.55-1.02)
[2016-09-13 07:39] LABS: INR 3.51 (0.82-1.09); PROTHROMBIN TIME (PATIENT) 39.6 SEC (9.98-11.88)
--- NOTE | 2016-09-13 08:58 | DS ---
Physical Examination Vital Signs: Vital Signs Temperature 97.8 F 09/13/16 08:00 Pulse Rate 59 L 09/13/16 08:00 Respiratory Rate 18 09/13/16 08:00 Blood Pressure 152/45 09/13/16 08:00 O2 Sat by Pulse Oximetry (%) 98 09/12/16 21:00 Labs: CBC, BMP 09/13/16 06:20 09/13/16 06:20 <Alicja Lee - Last Filed: 09/13/16 08:57> Vital Signs: Vital Signs Temperature 97.8 F 09/13/16 08:00 Pulse Rate 59 L 09/13/16 08:00 Respiratory Rate 18 09/13/16 08:00 Blood Pressure 152/45 09/13/16 08:00 O2 Sat by Pulse Oximetry (%) 98 09/12/16 21:00 Findings/Remarks: Patient seen and examined. Comfortable. No complaints. Wants to go back to CT. Chart reviewed. Patient does not want any further GI workup. Hematology consult noted. Constitutional: Yes: No Distress, Calm, Other (Morbidly obese.) Eyes: Yes: Conjunctiva Clear Neck: Yes: Supple Cardiovascular: Yes: Pulse Irregular Respiratory: Yes: CTA Bilaterally Gastrointestinal: Yes: Soft, Abdomen, Obese Edema: No Neurological: Yes: Alert Labs: CBC, BMP 09/13/16 06:20 09/13/16 06:20 <Neva Fountain - Last Filed: 09/13/16 10:44> Discharge Summary Reason For Visit: TRANSFUSION DEPENDENT ANEMIA Current Active Problems Anemia requiring transfusions (Acute) - Home Medications Comprehensive Discharge Medication List: Ambulatory Orders Atorvastatin Ca [Lipitor] 10 mg PO HS 05/12/16 Budesonide/Formeterol Fumarate [SYMBICORT 160/4.5mcg -] 1 inh PO BID 05/12/16 Carvedilol [Coreg] 25 mg PO DAILY 05/12/16 Docusate Sodium 100 mg PO HS 05/12/16 FENTANYL 25mcg PATCH [DURAGESIC 25mcg PATCH -] 1 each TD Q72H 05/12/16 Ferrous Sulfate 325 mg PO DAILY 05/12/16 Folic Acid 1 mg PO DAILY 05/12/16 Guaifenesin [Mucinex] 600 mg PO DAILY 05/12/16 Insulin (Levemir) [Levemir Flexpen -] 30 units SQ AM 05/12/16 Isosorbide Mononitrate [Imdur] 60 mg PO DAILY 05/12/16 Lactulose 30 gm PO DAILY 05/12/16 Metolazone [Zaroxolyn -] 5 mg PO DAILY 05/12/16 Oxycodone HCl 10 mg PO TID PRN 05/12/16 Ranitidine [Zantac -] 150 mg PO DAILY 05/12/16 Sennosides [Senna] 2 tab PO DAILY 05/12/16 Gabapentin 100 mg PO TID 06/15/16 Multivitamin with Minerals [Icaps Plus] 1 each PO DAILY 06/15/16 Acetaminophen [Tylenol .Regular Strength -] 650 mg PO Q6H PRN #0 tablet Albuterol 2.5/Ipratropium 0.5 [Duoneb -] 1 amp NEB QIDR amp 06/18/16 Nifedipine [Procardia Xl] 90 mg PO DAILY #30 tab.er.24 06/18/16 Torsemide [Demadex -] 60 mg PO DAILY tablet 07/27/16 Insulin Sliding Scale [Novolog Vial Sliding Scale -] 1 vial SQ ACHS units 09/13 Sennosides [Senna -] 2 tab PO DAILY tablet 09/13/16 Warfarin Na [Coumadin -] 4 mg PO DAILY@1800 #10 tablet 09/13/16 <Alicja Lee - Last Filed: 09/13/16 08:57> Current Active Problems Anemia requiring transfusions (Acute) Hospital Course: The patient is a 70 year old female with history of hypertension, hyperlipidemia , DM, CHF, CAD, atrial fibrillation, asthma, chronic anemia (blood transfusions x4) and obesity, sent from [facility] for blood transfusion. She states that her last blood transfusion was 6 weeks ago. Patient had colonoscopy and endoscopic work up that was negative. No nausea, vomiting, diarrhea, chest pain, lightheadedness, or shortness of breath. No melena, hematochezia, hematuria or hemoptysis. PCP - Dr. David Whitmore SH: lives at [facility]. Non smoker. No alcohol or drug use. Patient transfused during the stay. No evidence of any active GI bleed. Stool for occult blood was negative. HH stable. Now stable to go back to NH. Meds reconciled. Discussed with nursing staff also. Will hold Coumadin today. INR to be monitored closely in the NH. Suggest to check INR tomorrow and if it less than 3 then start low dose of Coumadin 4mg and monitor. Discharge time in examining, coordinating and documenting care: 35 mins Documentation prepared by Neva Fountain, acting as a medical billing manager for Alicja Lee MD. - Home Medications Comprehensive Discharge Medication List: Ambulatory Orders Atorvastatin Ca [Lipitor] 10 mg PO HS 05/12/16 Budesonide/Formeterol Fumarate [SYMBICORT 160/4.5mcg -] 1 inh PO BID 05/12/16 Carvedilol [Coreg] 25 mg PO DAILY 05/12/16 Docusate Sodium 100 mg PO HS 05/12/16 FENTANYL 25mcg PATCH [DURAGESIC 25mcg PATCH -] 1 each TD Q72H 05/12/16 Ferrous Sulfate 325 mg PO DAILY 05/12/16 Folic Acid 1 mg PO DAILY 05/12/16 Guaifenesin [Mucinex] 600 mg PO DAILY 05/12/16 Insulin (Levemir) [Levemir Flexpen -] 30 units SQ AM 05/12/16 Isosorbide Mononitrate [Imdur] 60 mg PO DAILY 05/12/16 Lactulose 30 gm PO DAILY 05/12/16 Metolazone [Zaroxolyn -] 5 mg PO DAILY 05/12/16 Oxycodone HCl 10 mg PO TID PRN 05/12/16 Ranitidine [Zantac -] 150 mg PO DAILY 05/12/16 Sennosides [Senna] 2 tab PO DAILY 05/12/16 Gabapentin 100 mg PO TID 06/15/16 Multivitamin with Minerals [Icaps Plus] 1 each PO DAILY 06/15/16 Acetaminophen [Tylenol .Regular Strength -] 650 mg PO Q6H PRN #0 tablet Albuterol 2.5/Ipratropium 0.5 [Duoneb -] 1 amp NEB QIDR amp 06/18/16 Nifedipine [Procardia Xl] 90 mg PO DAILY #30 tab.er.24 06/18/16 Torsemide [Demadex -] 60 mg PO DAILY tablet 07/27/16 Insulin Sliding Scale [Novolog Vial Sliding Scale -] 1 vial SQ ACHS units 09/13 Sennosides [Senna -] 2 tab PO DAILY tablet 09/13/16 Warfarin Na [Coumadin -] 4 mg PO DAILY@1800 #10 tablet 09/13/16 <Neva Fountain - Last Filed: 09/13/16 10:44> - Instructions Referrals: Diana Whitmore MD [Primary Care Provider] -
[2016-09-13] MEDS ORDERED: PT OWN MED DRAWER 7, Y5N ONE (09:57)
[2016-09-13] MEDS ORDERED: oxyCODONE HCL 5 MG TABLET PO ONE (10:15)
[2016-09-13] MEDS: LACTULOSE 20 GM/30 ML UDC (FOR ORAL USE ONLY) PO SCH (10:30)
[2016-09-13] MEDS: METOLAZONE 5 MG TABLET PO SCH (10:31)
[2016-09-13] MEDS: MULTIVITAMINS THER W-MINERALS COMBO TABLET (FP) PO SCH (10:31)
[2016-09-13] MEDS: ISOSORBIDE MONONITRATE 60 MG TAB.SR.24H (FP) PO SCH (10:31)
[2016-09-13] MEDS: CARVEDILOL 25 MG TABLET (FP) PO SCH (10:31)
[2016-09-13] MEDS: FOLIC ACID 1 MG TABLET (FP) PO SCH (10:31)
[2016-09-13] MEDS: guaiFENesin 600 MG TABLET.ER (FP) PO SCH (10:31)
[2016-09-13] MEDS: TORSEMIDE 20 MG TABLET (FP) PO SCH (10:31)
[2016-09-13] MEDS: RANITIDINE HCL 150 MG TABLET (FP) PO SCH (10:31)
[2016-09-13] MEDS: SENNOSIDES 8.6MG TABLET (FP) PO SCH (10:31)
[2016-09-13] MEDS: NIFEdipine E.R. 90 MG TABLET (FP) PO SCH (10:32)
[2016-09-13] MEDS: FERROUS SO4 325 MG TABLET (FP) PO SCH (10:32)
[2016-09-13] MEDS: ACETAMINOPHEN 325 MG TABLET (FP) PO PRN (10:33)
[2016-09-13] MEDS: BUDESONIDE/FORMETEROL FUMARATE 160/4.5 mcg INHALER IH SCH (10:41)
[2016-09-13] MEDS: fentaNYL 25mcg/hr PATCH.TD72 TD SCH (10:41)
[2016-09-13] MEDS: ALBUTEROL SO4 2.5/IPRATROPIUM 0.5 INH SOL 3 ML VIAL.NEB. NEB PRN (11:09)
[2016-09-13] MEDS ORDERED: INSULIN (NOVOLOG) ASPART 100 UNITS/ML 10ML VIAL ONE (11:58)
[2016-09-13 12:25] VITALS: BP 149/62; PULSE 60; TEMP 98.4
[2016-09-14 00:06] LABS: A/G RATIO 0.9 (0.7-1.7); ALBUMIN 2.9 g/dL (2.9-4.4); GLOBULIN, TOTAL 3.4 g/dL (2.2-3.9); M-SPIKE Not Observed g/dL (Not Observed); TOTAL PROTEIN 6.3 g/dL (6.0-8.5)
[2016-09-15 08:07] LABS: HEMATOCRIT 26.5 % (34.0-46.6)
== END 2016-09-13 13:03 | DRG 812 ==
LOC: JER 16:23 → JERBED 19:27 → J6S 23:09
PROVIDERS: ADMIT Internal Medicine; ATTEND Internal Medicine
PROC: 30233N1 Transfusion of Nonautologous Red Blood Cells into Peripheral Vein, Percutaneous Approach (ICD-10-PCS; principal; 2016-09-09)
DX: D64.89 Other specified anemias (principal); Z68.44 Body mass index [BMI] 60.0-69.9, adult; I48.1 Persistent atrial fibrillation; E78.5 Hyperlipidemia, unspecified; I25.10 Atherosclerotic heart disease of native coronary artery without angina pectoris; I12.9 Hypertensive chronic kidney disease with stage 1 through stage 4 chronic kidney disease, or unspecified chronic kidney disease; E11.22 Type 2 diabetes mellitus with diabetic chronic kidney disease; N18.9 Chronic kidney disease, unspecified; E66.01 Morbid (severe) obesity due to excess calories
CPT/HCPCS: 36415; 36430; 71010-TC; 80048; 80053; 82272; 82607; 82728; 82747; 83540; 83550; 83615; 83883; 84155; 84165; 84439; 84443; 85014; 85025; 85027; 85610; 86850; 86880; 86900; 86901; 86922; 93005; 93010; 94640; 97162; 99285-25; P9038; P9058

== ENCOUNTER 2016-10-12 19:32 | Inpatient (IN) | payer OTHER ==
[2016-10-12 19:44] VITALS: BMI 65.8
--- NOTE | 2016-10-12 19:54 | PDOC ---
History of Present Illness - General History Source: Patient, Old Records Exam Limitations: No Limitations - History of Present Illness Initial Comments: 10/12/16 20:03 The patient is a 70 year old female with a significant past medical history of hypertension, hyperlipidemia, DM, CHF, CAD, atrial fibrillation, asthma, chronic anemia and obesity, who presents to the emergency department for a blood transfusion secondary to abnormal blood work. The patient reports associated shortness of breath and chills. She denies any chest pain, headache or abdominal pain. The patient notes that she has received multiple transfustions before PCP: Dr. David Whitmore FAMILY HISTORY: No pertinent history reported SOCIAL HISTORY: Lives at [facility]. Denies smoking, drug, and/or EtOH use ALLERGIES: NKDA <Ghanshyam Cho - Last Filed: 10/12/16 21:45> - General History Source: Patient, [facility] <Meño Robertson - Last Filed: 10/13/16 20:46> - General Chief Complaint: Blood Transfusion Stated Complaint: BLOOD TRANSFUSION Time Seen by Provider: 10/12/16 19:51 Past History <Ghanshyam Cho - Last Filed: 10/12/16 21:45> - Past Medical History Anemia: Yes Asthma: Yes Cancer: No Cardiac Disorders: Yes (atrial fibrilation, CHF) CVA: No COPD: Yes CHF: Yes Dementia: No Diabetes: Yes GI Disorders: Yes (GERD) Disorders: Yes (UTI) HTN: Yes Hypercholesterolemia: Yes Liver Disease: No Suicide Attempt (Hx): No Seizures: No Thyroid Disease: No - Surgical History Abdominal Surgery: No Appendectomy: No Cardiac Surgery: No Cholecystectomy: No Lung Surgery: No Neurologic Surgery: No Orthopedic Surgery: Yes (L. Ankle sx, L.leg) - Immunization History Immunization Up to Date: Yes - Psycho/Social/Smoking Cessation Hx Anxiety: No Suicidal Ideation: No Smoking Status: No Smoking History: Never smoked Have you smoked in the past 12 months: No Number of Cigarettes Smoked Daily: 0 Information on smoking cessation initiated: No Hx Alcohol Use: No Drug/Substance Use Hx: No Substance Use Type: None Hx Substance Use Treatment: No <Meño Robertson - Last Filed: 10/13/16 20:46> - Past Medical History Allergies/Adverse Reactions: Allergies Allergy/AdvReac Type Severity Reaction Status Date / Time No Known Allergies Allergy Verified 10/12/16 19:50 Home Medications: Ambulatory Orders Atorvastatin Ca [Lipitor] 10 mg PO HS 05/12/16 Budesonide/Formeterol Fumarate [SYMBICORT 160/4.5mcg -] 1 inh PO BID 05/12/16 Carvedilol [Coreg] 25 mg PO DAILY 05/12/16 FENTANYL 25mcg PATCH [DURAGESIC 25mcg PATCH -] 1 each TD Q72H 05/12/16 Ferrous Sulfate 325 mg PO DAILY 05/12/16 Folic Acid 1 mg PO DAILY 05/12/16 Guaifenesin [Mucinex] 600 mg PO DAILY 05/12/16 Insulin (Levemir) [Levemir Flexpen -] 30 units SQ AM 05/12/16 Isosorbide Mononitrate [Imdur] 60 mg PO DAILY 05/12/16 Lactulose 30 gm PO DAILY 05/12/16 Metolazone [Zaroxolyn -] 5 mg PO DAILY 05/12/16 Oxycodone HCl 10 mg PO TID PRN 05/12/16 Ranitidine [Zantac -] 150 mg PO DAILY 05/12/16 Gabapentin 100 mg PO TID 06/15/16 Acetaminophen [Tylenol .Regular Strength -] 650 mg PO Q6H PRN #0 tablet Nifedipine [Procardia Xl] 90 mg PO DAILY #30 tab.er.24 06/18/16 Insulin Sliding Scale [Novolog Vial Sliding Scale -] 1 vial SQ ACHS units 09/13 Sennosides [Senna -] 2 tab PO DAILY tablet 09/13/16 Warfarin Na [Coumadin -] 4 mg PO DAILY@1800 #10 tablet 09/13/16 Albuterol 2.5/Ipratropium 0.5 [Duoneb -] 1 amp NEB QIDR PRN 10/12/16 Ciprofloxacin HCl 500 mg PO BID 10/13/16 Epoetin [place] [Procrit -] 10,000 unit SQ ASDIR MDD 3 x WEEKLY HOLD FOR HGB >10 Losartan Potassium [Cozaar] 25 mg PO DAILY 10/13/16 Magnesium Hydrox 2400MG/30Ml [Milk of Magnesia -] 30 ml PO HS 10/13/16 Torsemide [Demadex -] 20 mg PO DAILY 10/13/16 Review of Systems - Review of Systems Able to Perform ROS?: Yes Comments:: 10/12/16 20:03 CONSTITUTIONAL: Present: Chills Absent: fever, no fatigue EYES: Absent: visual changes ENT: Absent: ear pain, no sore throat CARDIOVASCULAR: Absent: chest pain, no palpitations RESPIRATORY: Present: SOB Absent: cough GI: Absent: abdominal pain, no nausea, no vomiting, no constipation, no diarrhea GENITOURINARY: Absent: dysuria, no frequency, no hematuria MUSCULOSKELETAL: Absent: back pain, no arthralgia, no myalgia SKIN: Absent: rash NEURO: Present: Headache Absent: Change in gait. <Ghanshyam Cho - Last Filed: 10/12/16 21:45> *Physical Exam - Vital Signs Last Vital Signs Temp Pulse Resp BP Pulse Ox 97.8 F 60 20 160/65 95 10/12/16 19:35 10/12/16 19:35 10/12/16 19:35 10/12/16 19:35 10/12/16 19:35 - Physical Exam Comments: 10/12/16 20:03 GENERAL: Well-appearing, well-nourished. No apparent distress. HEENT: Normocephalic, atraumatic. PERRL, EOM intact. CARDIOVASCULAR: Normal S1, S2. Regular rate and rhythm. PULMONARY: Clear to auscultation bilaterally. ABDOMEN: (+) Morbidly obese, soft, non-distended, non-tender. EXTREMITIES: Normal ROM in all four extremities. No gross deformities. SKIN: Warm, dry. No rash NEUROLOGICAL: No focal neurological deficits. <Ghanshyam Cho - Last Filed: 10/12/16 21:45> - Vital Signs Last Vital Signs Temp Pulse Resp BP Pulse Ox 97.8 F 60 20 160/65 95 10/12/16 19:35 10/12/16 19:35 10/12/16 19:35 10/12/16 19:35 10/12/16 19:35 <Meño Robertson - Last Filed: 10/13/16 20:46> Heart Score/ECG Review - ECG Impressions Comment:: 10/12/16 20:29 SInus bradycardia with premature supraventricular complexes otherwise normal ECG. <Ghanshyam Cho - Last Filed: 10/12/16 21:45> ED Treatment Course - LABORATORY CBC & Chemistry Diagram: 10/12/16 21:00 10/12/16 21:00 <Ghanshyam Cho - Last Filed: 10/12/16 21:45> - LABORATORY CBC & Chemistry Diagram: 10/13/16 17:45 10/13/16 10:00 <Meño Robertson - Last Filed: 10/13/16 20:46> Medical Decision Making - Medical Decision Making 10/12/16 21:[address] Mo placed. Awaiting call back. 10/12/16 21:[address] oM placed. Awaiting call back. <Ghanshyam Cho - Last Filed: 10/12/16 21:45> - Medical Decision Making 10/13/16 20:45 Dr. Robertson: The scribe's documentation has been prepared under my direction and personally reviewed by me in its entirery. I confirm that the note above accurately reflects all work, treatment, procedures, and medical decision making performed by me. <Meño Robertson - Last Filed: 10/13/16 20:46> *DC/Admit/Observation/Transfer - Attestations Scribe Attestion: 10/12/16 20:04 Documentation prepared by Ghanshyam Cho, acting as medical customer service representative for Meño Robertson DO. <Ghanshyam Cho - Last Filed: 10/12/16 21:45> - Discharge Dispostion Admit: Yes <Meño Robertson - Last Filed: 10/13/16 20:46> Diagnosis at time of Disposition: Anemia requiring transfusions - Referrals
[2016-10-12 21:12] LABS: BASOPHIL 0.4 % (0-2.0); EOSINOPHIL 2.4 % (0-4.5); MCH 26.2 pg (25.7-33.7); MCHC 31.3 g/dl (32.0-36.0); MEAN CELL VOLUME 83.6 fl (80-96); PLATELET COUNT 145 K/MM3 (134-434); RDW 17.2 % (11.6-15.6); WHITE BLOOD COUNT 8.6 K/mm3 (4.0-10.0)
[2016-10-12 21:26] LABS: PROTHROMBIN TIME (PATIENT) 22.3 SEC (9.98-11.88)
[2016-10-12 21:36] LABS: ALBUMIN 3.2 g/dl (3.4-5.0); ANION GAP 7 (8-16); BILIRUBIN,TOTAL 0.2 mg/dL (0.2-1.0); CALCIUM 8.5 mg/dL (8.5-10.1); CO2 31 mmol/L (21-32); CREATININE 3.2 mg/dL (0.55-1.02); GLUCOSE,RANDOM 254 mg/dL (74-106); MAGNESIUM 3.4 mg/dL (1.8-2.4); SGOT/AST 13 U/L (15-37); SGPT/ALT 16 U/L (12-78); TOT PROT 7.2 g/dl (6.4-8.2)
[2016-10-12 21:39] LABS: ALK PHOS 68 U/L (45-117); TROPONIN I < 0.02 ng/ml (0.00-0.05)
[2016-10-12] MEDS ORDERED: ALBUTEROL SO4 2.5/IPRATROPIUM 0.5 INH SOL 3 ML VIAL.NEB. NEB PRN (22:18)
[2016-10-12] MEDS: fentaNYL 25mcg/hr PATCH.TD72 TD SCH (22:36)
[2016-10-12] MEDS ORDERED: FENTANYL PATCH WASTE TD PRN (22:41)
[2016-10-12 23:41] LABS: URINE APPEARANCE CLEAR; URINE BILIRUBIN NEGATIVE (NEGATIVE); URINE COLOR STRAW; URINE GLUCOSE (UA) 1+ (NEGATIVE); URINE KETONE NEGATIVE (NEGATIVE); URINE LEUK ESTERASE NEGATIVE (NEGATIVE); URINE NITRITE NEGATIVE (NEGATIVE); URINE UROBILINOGEN NEGATIVE E.U./dl (0.2-1.0)
[2016-10-12 23:42] LABS: URINE BLOOD 1+ (NEGATIVE); URINE PROTEIN 1+ (NEGATIVE)
[2016-10-12 23:46] LABS: URINE BACTERIA RARE /hpf (NONE SEEN); URINE HYALINE CAST 1 /lpf; URINE MUCUS RARE; URINE RBC 9 /hpf (0-3); URINE WBC 1 /hpf (3-5)
[2016-10-13] MEDS: GABAPENTIN 100 MG CAPSULE (FP) PO SCH ×3 (06:24→22:21)
[2016-10-13] MEDS: INSULIN SLIDING SCALE (NOVOLOG) 1 VIAL SQ SCH ×4 (06:25→22:23)
[2016-10-13] MEDS: INSULIN DETEMIR 100 UNITS/ML MDV SQ SCH (06:25)
--- NOTE | 2016-10-13 09:25 | HP ---
Admitting History and Physical - Primary Care Physician PCP: Diana Whitmore - Admission Chief Complaint: anemia, acute kidney injury History of Present Illness: ER HISTORY - History of Present Illness Initial Comments: 10/12/16 20:03 The patient is a 70 year old female with a significant past medical history of hypertension, hyperlipidemia, DM, CHF, CAD, atrial fibrillation, asthma, chronic anemia and obesity, who presents to the emergency department for a blood transfusion secondary to abnormal blood work. The patient reports associated shortness of breath and chills. She denies any chest pain, headache or abdominal pain. The patient notes that she has received multiple transfustions before PCP: Dr. David Whitmore FAMILY HISTORY: No pertinent history reported SOCIAL HISTORY: Lives at [facility]. Denies smoking, drug, and/or EtOH use ALLERGIES: NKDA Pt examined by me on the floors She received total 2 units PRBC Feels cold Denies chest pain , lightheadedness, SOB, palpitations, rectal bleeding and vaginal bleeding She admits to dark colored stools-- but thinks it may be due to iron tabs She had colonoscopy in the past and does not want to undergo that again. History Source: Patient Limitations to Obtaining History: No Limitations - Past Medical History Cardiovascular: Yes: AFIB (anticoagulants for 5 yrs ), CHF, HTN, Hyperlipdemia. No: CAD Pulmonary: Yes: Asthma, COPD Gastrointestinal: Yes: Constipation, GERD, Hemorrhoids, Other (does not remember about colonscopy ) Renal/: Yes: Renal Inusuff, UTI (h/o recurrent uti) Heme/Onc: Yes: Anemia Psych: Yes: Depression (because son at age 38 yrs by sucide ) Musculoskeletal: Yes: Osteoarthritis Endocrine: Yes: Diabetes Mellitus (IDDM since age 40 yrs ), Other (morbid obesity ) - Past Surgical History Past Surgical History: Yes: (40 years ago per patient) - Smoking History Smoking history: Never smoked Have you smoked in the past 12 months: No Aproximately how many cigarettes per day: 0 - Alcohol/Substance Use Hx Alcohol Use: No History of Substance Use: reports: None Home Medications - Allergies Allergies/Adverse Reactions: Allergies Allergy/AdvReac Type Severity Reaction Status Date / Time No Known Allergies Allergy Verified 10/12/16 19:50 - Home Medications Home Medications: Ambulatory Orders Atorvastatin Ca [Lipitor] 10 mg PO HS 05/12/16 Budesonide/Formeterol Fumarate [SYMBICORT 160/4.5mcg -] 1 inh PO BID 05/12/16 Carvedilol [Coreg] 25 mg PO DAILY 05/12/16 FENTANYL 25mcg PATCH [DURAGESIC 25mcg PATCH -] 1 each TD Q72H 05/12/16 Ferrous Sulfate 325 mg PO DAILY 05/12/16 Folic Acid 1 mg PO DAILY 05/12/16 Guaifenesin [Mucinex] 600 mg PO DAILY 05/12/16 Insulin (Levemir) [Levemir Flexpen -] 30 units SQ AM 05/12/16 Isosorbide Mononitrate [Imdur] 60 mg PO DAILY 05/12/16 Lactulose 30 gm PO DAILY 05/12/16 Metolazone [Zaroxolyn -] 5 mg PO DAILY 05/12/16 Oxycodone HCl 10 mg PO TID PRN 05/12/16 Ranitidine [Zantac -] 150 mg PO DAILY 05/12/16 Gabapentin 100 mg PO TID 06/15/16 Acetaminophen [Tylenol .Regular Strength -] 650 mg PO Q6H PRN #0 tablet Nifedipine [Procardia Xl] 90 mg PO DAILY #30 tab.er.24 06/18/16 Insulin Sliding Scale [Novolog Vial Sliding Scale -] 1 vial SQ ACHS units 09/13 Sennosides [Senna -] 2 tab PO DAILY tablet 09/13/16 Warfarin Na [Coumadin -] 4 mg PO DAILY@1800 #10 tablet 09/13/16 Albuterol 2.5/Ipratropium 0.5 [Duoneb -] 1 amp NEB QIDR PRN 10/12/16 Ciprofloxacin HCl 500 mg PO BID 10/13/16 Epoetin [place] [Procrit -] 10,000 unit SQ ASDIR MDD 3 x WEEKLY HOLD FOR HGB >10 Losartan Potassium [Cozaar] 25 mg PO DAILY 10/13/16 Magnesium Hydrox 2400MG/30Ml [Milk of Magnesia -] 30 ml PO HS 10/13/16 Torsemide [Demadex -] 20 mg PO DAILY 10/13/16 Family Disease History - Family Disease History Family Disease History: Diabetes: Father, Mother Review of Systems - Review of Systems Constitutional: denies: Chills, Fever, Loss of Appetite, Weakness Cardiovascular: denies: Chest Pain, Palpitations, Shortness of Breath Respiratory: denies: Cough Gastrointestinal: denies: Abdominal Pain, Diarrhea, Rectal Bleeding, Vomiting Blood Physical Examination Vital Signs: Vital Signs Temperature 98.1 F 10/13/16 06:51 Pulse Rate 57 L 10/13/16 06:51 Respiratory Rate 20 10/13/16 06:51 Blood Pressure 156/64 10/13/16 06:51 O2 Sat by Pulse Oximetry (%) 100 10/12/16 23:51 Constitutional: Yes: No Distress, Calm Cardiovascular: Yes: Pulse Irregular Respiratory: Yes: Diminished. No: Rales, Rhonchi Gastrointestinal: Yes: Normal Bowel Sounds, Soft, Abdomen, Obese. No: Distention, Tenderness Edema: Yes Edema: LLE: 2+, RLE: 2+ Psychiatric: Yes: Alert, Oriented Labs: Laboratory Last Values WBC 8.6 K/mm3 (4.0-10.0) 10/12/16 21:00 RBC 2.48 M/mm3 (3.60-5.2) L D 10/12/16 21:00 Hgb 6.5 GM/dL (10.7-15.3) L* D 10/12/16 21:00 Hct 20.7 % (32.4-45.2) L D 10/12/16 21:00 MCV 83.6 fl (80-96) 10/12/16 21:00 MCHC 31.3 g/dl (32.0-36.0) L 10/12/16 21:00 RDW 17.2 % (11.6-15.6) H 10/12/16 21:00 Plt Count 145 K/MM3 (134-434) 10/12/16 21:00 MPV 8.0 fl (7.5-11.1) 10/12/16 21:00 Neutrophils % 78.0 % (42.8-82.8) 10/12/16 21:00 Lymphocytes % 13.5 % (8-40) D 10/12/16 21:00 Monocytes % 5.7 % (3.8-10.2) 10/12/16 21:00 Eosinophils % 2.4 % (0-4.5) 10/12/16 21:00 Basophils % 0.4 % (0-2.0) 10/12/16 21:00 INR 2.00 (0.82-1.09) H D 10/12/16 21:00 Sodium 139 mmol/L (136-145) 10/12/16 21:00 Potassium 5.2 mmol/L (3.5-5.1) H D 10/12/16 21:00 Chloride 101 mmol/L (98-107) 10/12/16 21:00 Carbon Dioxide 31 mmol/L (21-32) D 10/12/16 21:00 Anion Gap 7 (8-16) L 10/12/16 21:00 BUN 120 mg/dL (7-18) H* D 10/12/16 21:00 Creatinine 3.2 mg/dL (0.55-1.02) H 10/12/16 21:00 Creat Clearance w eGFR 14.32 (>60) 10/12/16 21:00 POC Glucometer 184 UNITS (()) 10/13/16 05:56 Random Glucose 254 mg/dL (74-106) H D 10/12/16 21:00 Calcium 8.5 mg/dL (8.5-10.1) 10/12/16 21:00 Magnesium 3.4 mg/dL (1.8-2.4) H D 10/12/16 21:00 Total Bilirubin 0.2 mg/dL (0.2-1.0) D 10/12/16 21:00 AST 13 U/L (15-37) L D 10/12/16 21:00 ALT 16 U/L (12-78) D 10/12/16 21:00 Alkaline Phosphatase 68 U/L (45-117) D 10/12/16 21:00 Creatine Kinase 50 IU/L (26-192) 10/12/16 21:00 Troponin I < 0.02 ng/ml (0.00-0.05) 10/12/16 21:00 Total Protein 7.2 g/dl (6.4-8.2) 10/12/16 21:00 Albumin 3.2 g/dl (3.4-5.0) L 10/12/16 21:00 Urine Color Straw 10/12/16 22:18 Urine Appearance Clear 10/12/16 22:18 Urine pH 5.0 (5.0-8.0) 10/12/16 22:18 Ur Specific [place] 1.010 (1.005-1.025) 10/12/16 22:18 Urine Protein 1+ (NEGATIVE) H 10/12/16 22:18 Urine Glucose (UA) 1+ (NEGATIVE) H 10/12/16 22:18 Urine Ketones Negative (NEGATIVE) 10/12/16 22:18 Urine Blood 1+ (NEGATIVE) H 10/12/16 22:18 Urine Nitrite Negative (NEGATIVE) 10/12/16 22:18 Urine Bilirubin Negative (NEGATIVE) 10/12/16 22:18 Urine Urobilinogen Negative E.U./dl (0.2-1.0) 10/12/16 22:18 Ur Leukocyte Esterase Negative (NEGATIVE) 10/12/16 22:18 Urine RBC 9 /hpf (0-3) 10/12/16 22:18 Urine WBC 1 /hpf (3-5) 10/12/16 22:18 Ur Epithelial Cells Rare /hpf (FEW) 10/12/16 22:18 Urine Bacteria Rare /hpf (NONE SEEN) 10/12/16 22:18 Hyaline Casts 1 /lpf 10/12/16 22:18 Urine Mucus Rare 10/12/16 22:18 Blood Type O POSITIVE 10/12/16 21:00 Antibody Screen Negative 10/12/16 21:00 Crossmatch See Detail 10/12/16 21:00 Imaging - Results Chest X-ray: Image Reviewed (no congestion) EKG: Image Reviewed (afib) Problem List - Problems (1) Anemia requiring transfusions Code(s): D64.9 - ANEMIA, UNSPECIFIED (2) Acute on chronic renal insufficiency Code(s): N28.9 - DISORDER OF KIDNEY AND URETER, UNSPECIFIED N18.9 - CHRONIC KIDNEY DISEASE, UNSPECIFIED (3) Afib Code(s): I48.91 - UNSPECIFIED ATRIAL FIBRILLATION Qualifiers: Atrial fibrillation type: persistent Qualified Code(s): I48.1 - Persistent atrial fibrillation (4) Anemia Code(s): D64.9 - ANEMIA, UNSPECIFIED Qualifiers: Anemia type: unspecified type Qualified Code(s): D64.9 - Anemia, unspecified Assessment/Plan PLAN s/p 2 units PRBC recheck CBC today DC Metalozone Monitor renal function renal eval she was seen by Hematology from the last admission-- advised to increase Procrit Pt refusing endoscopic procedures No active bleeding INR therapeutic Continue Coumadin Monitor INR DVT prophylaxis-- Coumadin and SCD
[2016-10-13] MEDS ORDERED: RANITIDINE HCL 150 MG TABLET (FP) PO SCH (10:00)
[2016-10-13 10:23] LABS: BASOPHIL 0.4 % (0-2.0); EOSINOPHIL 3.2 % (0-4.5); MCH 26.6 pg (25.7-33.7); MCHC 31.8 g/dl (32.0-36.0); MEAN CELL VOLUME 83.8 fl (80-96); MEAN PLT VOLUME 7.4 fl (7.5-11.1); NEUTROPHILS 70.1 % (42.8-82.8); PLATELET COUNT 138 K/MM3 (134-434); RDW 17.1 % (11.6-15.6); WHITE BLOOD COUNT 6.9 K/mm3 (4.0-10.0)
--- NOTE | 2016-10-13 10:42 | EKG ---
Test Reason : Blood Pressure : / mmHG Vent. Rate : 059 BPM Atrial Rate : 059 BPM P-R Int : 196 ms QRS Dur : 096 ms QT Int : 456 ms P-R-T Axes : 035 019 055 degrees QTc Int : 451 ms SINUS BRADYCARDIA WITH PREMATURE SUPRAVENTRICULAR COMPLEXES OTHERWISE NORMAL ECG WHEN COMPARED WITH ECG OF 09-SEP-2016 16:51, SINUS RHYTHM HAS REPLACED JUNCTIONAL RHYTHM Confirmed by RADHA VELASQUEZ, BISMARK ([id number]) on 10/13/2016 10:42:30 AM Referred By: Confirmed By:BISMARK GARCIA MD
[2016-10-13 10:54] LABS: ANION GAP 7 (8-16); BILIRUBIN,TOTAL 0.5 mg/dL (0.2-1.0); CALCIUM 8.3 mg/dL (8.5-10.1); CO2 32 mmol/L (21-32); GLUCOSE,RANDOM 144 mg/dL (74-106); SGOT/AST 10 U/L (15-37); SGPT/ALT 15 U/L (12-78); TOT PROT 6.6 g/dl (6.4-8.2)
[2016-10-13 10:55] LABS: ALK PHOS 49 U/L (45-117)
[2016-10-13] MEDS: NIFEdipine E.R. 90 MG TABLET (FP) PO SCH (11:13)
[2016-10-13] MEDS: FERROUS SO4 325 MG TABLET (FP) PO SCH (11:13)
[2016-10-13] MEDS: ACETAMINOPHEN 325 MG TABLET (FP) PO PRN (11:13)
[2016-10-13] MEDS: ISOSORBIDE MONONITRATE 60 MG TAB.SR.24H (FP) PO SCH (11:14)
[2016-10-13] MEDS: FOLIC ACID 1 MG TABLET (FP) PO SCH (11:14)
[2016-10-13] MEDS: CARVEDILOL 25 MG TABLET (FP) PO SCH (11:14)
[2016-10-13] MEDS: oxyCODONE HCL 5 MG TABLET PO PRN ×2 (11:14→18:28)
[2016-10-13] MEDS: SENNOSIDES 8.6MG TABLET (FP) PO SCH (11:15)
[2016-10-13] MEDS: TORSEMIDE 20 MG TABLET (FP) PO SCH (11:16)
[2016-10-13] MEDS: LACTULOSE 20 GM/30 ML UDC (FOR ORAL USE ONLY) PO SCH (11:16)
[2016-10-13] MEDS: BUDESONIDE/FORMETEROL FUMARATE 160/4.5 mcg INHALER IH SCH ×2 (11:16→22:27)
--- NOTE | 2016-10-13 13:48 | CONSULT ---
Consult Consult Specialty:: Hematology-Oncology Referred by:: Dr.Tina Mo - History of Present Illness Chief Complaint: Anemia requiring transfusion History of Present Illness: Patient seen and examined 10/13/2016 200pm Ms.Hobbs Sanches is a 70 year old female with history of hypertension, hyperlipidemia, DM, CHF, CAD, atrial fibrillation, asthma, chronic anemia ( blood transfusions x4) and obesity, was again sent from [facility] for blood transfusion. No nausea, vomiting, diarrhea, chest pain, lightheadedness, or shortness of breath. No melena, hematochezia, hematuria or hemoptysis. Patient had colonoscopy and endoscopic work up that was negative. she mentioned that she continues to receive procrit and the last dose being on 10/11/2016. - History Source History Provided By: Patient, Medical Record Limitations to Obtaining History: No Limitations - Past Medical History Cardio/Vascular: Yes: AFIB (anticoagulants for 5 yrs , on coumadin), CHF, HTN, Hyperlipdemia. No: CAD Pulmonary: Yes: Asthma, COPD Gastrointestinal: Yes: Constipation, GERD, Hemorrhoids, Other (does not remember about colonscopy ) Renal/: Yes: Renal Inusuff, UTI (h/o recurrent uti) Reproductive: Yes: Postmenopausal Heme/Onc: Yes: Anemia (history of chronic anemia, on intermittent transfusions and also on Procrit at [facility]), Other. No: B12 Deficiency, Bleeding Disorder, Cancer, Current Chemotherapy, Current Radiation Therapy, Hemochromatosis, Hypercoaguable State, Myeloproliferative Synd, Sickle Cell Disease, Sickle Cell Trait, Thrombocytopenia Psych: Yes: Depression (because son at age 38 yrs by sucide ) Musculoskeletal: Yes: Osteoarthritis Endocrine: Yes: Diabetes Mellitus (IDDM since age 40 yrs ), Other (morbid obesity ) Additional Medical History: morbid obesity - Past Surgical History Past Surgical History: Yes: (40 years ago per patient) - Alcohol/Substance Use History of Substance Use: reports: None - Smoking History Smoking history: Never smoked Have you smoked in the past 12 months: No Aproximately how many cigarettes per day: 0 - Social History Usual Living Arrangement: Longterm (for 2 yrs at [facility]) Home Medications - Allergies Allergies/Adverse Reactions: Allergies Allergy/AdvReac Type Severity Reaction Status Date / Time No Known Allergies Allergy Verified 10/12/16 19:50 - Home Medications Home Medications: Ambulatory Orders Atorvastatin Ca [Lipitor] 10 mg PO HS 05/12/16 Budesonide/Formeterol Fumarate [SYMBICORT 160/4.5mcg -] 1 inh PO BID 05/12/16 Carvedilol [Coreg] 25 mg PO DAILY 05/12/16 FENTANYL 25mcg PATCH [DURAGESIC 25mcg PATCH -] 1 each TD Q72H 05/12/16 Ferrous Sulfate 325 mg PO DAILY 05/12/16 Folic Acid 1 mg PO DAILY 05/12/16 Guaifenesin [Mucinex] 600 mg PO DAILY 05/12/16 Insulin (Levemir) [Levemir Flexpen -] 30 units SQ AM 05/12/16 Isosorbide Mononitrate [Imdur] 60 mg PO DAILY 05/12/16 Lactulose 30 gm PO DAILY 05/12/16 Metolazone [Zaroxolyn -] 5 mg PO DAILY 05/12/16 Oxycodone HCl 10 mg PO TID PRN 05/12/16 Ranitidine [Zantac -] 150 mg PO DAILY 05/12/16 Gabapentin 100 mg PO TID 06/15/16 Acetaminophen [Tylenol .Regular Strength -] 650 mg PO Q6H PRN #0 tablet Nifedipine [Procardia Xl] 90 mg PO DAILY #30 tab.er.24 06/18/16 Insulin Sliding Scale [Novolog Vial Sliding Scale -] 1 vial SQ ACHS units 09/13 Sennosides [Senna -] 2 tab PO DAILY tablet 09/13/16 Warfarin Na [Coumadin -] 4 mg PO DAILY@1800 #10 tablet 09/13/16 Albuterol 2.5/Ipratropium 0.5 [Duoneb -] 1 amp NEB QIDR PRN 10/12/16 Ciprofloxacin HCl 500 mg PO BID 10/13/16 Epoetin [place] [Procrit -] 10,000 unit SQ ASDIR MDD 3 x WEEKLY HOLD FOR HGB >10 Losartan Potassium [Cozaar] 25 mg PO DAILY 10/13/16 Magnesium Hydrox 2400MG/30Ml [Milk of Magnesia -] 30 ml PO HS 10/13/16 Torsemide [Demadex -] 20 mg PO DAILY 10/13/16 Family Disease History - Family Disease History Family History: Unremarkable Family Disease History: Diabetes: Father, Mother Review of Systems - Review of Systems Constitutional: denies: Chills, Fever, Lethargy, Night Sweats, Unintentional Wgt. Loss HENT: denies: Difficult Swallowing, Epistaxis Neck: denies: Lumps, Pain on Movement Cardiovascular: denies: Chest Pain, Palpitations, Shortness of Breath Respiratory: denies: Cough Gastrointestinal: denies: Abdominal Pain, Constipation Genitourinary: denies: Burning, Discharge, Dysuria, Flank Pain Musculoskeletal: denies: Back Pain Neurological: denies: Confusion, Dizziness, Weakness Hematology/Lymphatic: denies: Excessive Bleeding Physical Exam Vital Signs: Vital Signs Temperature 98.1 F 10/13/16 06:51 Pulse Rate 57 L 10/13/16 06:51 Respiratory Rate 20 10/13/16 06:51 Blood Pressure 156/64 10/13/16 06:51 O2 Sat by Pulse Oximetry (%) 100 10/12/16 23:51 Constitutional: Yes: No Distress, Calm Eyes: Yes: Conjunctiva Clear. No: Sclera Icterus HENT: Yes: Atraumatic, Normocephalic Neck: Yes: Supple. No: Lymphadenopathy Cardiovascular: Yes: Pulse Irregular Respiratory: Yes: CTA Bilaterally Gastrointestinal: Yes: Normal Bowel Sounds, Soft Extremities: Yes: WNL Edema: Yes Edema: LLE: 1+, RLE: 1+ Wound/Incision: Yes: Clean/Dry (great toe on the left lower extremity) Psychiatric: Yes: Alert, Oriented Labs: CBC, BMP 10/13/16 10:00 10/13/16 10:00 Imaging - Results Chest X-ray: Report Reviewed Problem List - Problems (1) Anemia requiring transfusions Assessment/Plan: Patient with second admission for anemia requiring transfusion Patient with history of chronic anemia (normocytic/normochromic). reported no evidence of bleeding Etiology likely Anemia of Chronic inflammation, in the setting of CRI + blood loss advised to increase procrit , currently 22037I/ml SQ three times weekly, last dose being on 10/11/2016 per pt currently on Packed cell transfusion will check iron studies and retic. dose iv iron and procrit discussed with dr. koehler Code(s): D64.9 - ANEMIA, UNSPECIFIED (2) Anemia, blood loss Assessment/Plan: reportedly negative EGD/colonoscopy and refusing further last admission FOBT negative Code(s): D50.0 - IRON DEFICIENCY ANEMIA SECONDARY TO BLOOD LOSS (CHRONIC) (3) Afib Assessment/Plan: On coumadin with therapuetic INR continue the same Code(s): I48.91 - UNSPECIFIED ATRIAL FIBRILLATION Qualifiers: Atrial fibrillation type: persistent Qualified Code(s): I48.1 - Persistent atrial fibrillation (4) Anticoagulated on Coumadin Assessment/Plan: continue INR monitoring Code(s): Z51.81 - ENCOUNTER FOR THERAPEUTIC DRUG LEVEL MONITORING 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
--- NOTE | 2016-10-13 17:15 | PN ---
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
[2016-10-13] MEDS ORDERED: WARFARIN NA 2 MG TABLET (UD) PO SCH (18:00)
[2016-10-13] MEDS: PANTOPRAZOLE 40 MG TABLET (FP) PO SCH (18:28)
[2016-10-13 18:29] LABS: MCH 27.2 pg (25.7-33.7); MCHC 32.4 g/dl (32.0-36.0); MEAN CELL VOLUME 83.8 fl (80-96); MEAN PLT VOLUME 8.1 fl (7.5-11.1); PLATELET COUNT 144 K/MM3 (134-434); RDW 16.6 % (11.6-15.6); WHITE BLOOD COUNT 8.1 K/mm3 (4.0-10.0)
[2016-10-13] MEDS: ATORVASTATIN CA 10 MG TABLET (FP) PO SCH (22:21)
[2016-10-13] MEDS: DOCUSATE SODIUM 100 MG CAPSULE (FP) PO SCH (22:21)
[2016-10-14] MEDS: INSULIN SLIDING SCALE (NOVOLOG) 1 VIAL SQ SCH ×4 (06:41→22:16)
[2016-10-14] MEDS: GABAPENTIN 100 MG CAPSULE (FP) PO SCH ×3 (06:41→22:15)
[2016-10-14] MEDS: INSULIN DETEMIR 100 UNITS/ML MDV SQ SCH (06:42)
[2016-10-14 07:47] LABS: MCH 27.4 pg (25.7-33.7); MCHC 32.5 g/dl (32.0-36.0); MEAN CELL VOLUME 84.1 fl (80-96); PLATELET COUNT 127 K/MM3 (134-434); RDW 16.8 % (11.6-15.6); WHITE BLOOD COUNT 6.7 K/mm3 (4.0-10.0)
[2016-10-14 08:15] LABS: FREE T4 1.18 ng/dl (0.76-1.46)
[2016-10-14 08:16] LABS: FERRITIN 71.871 ng/ml (6.9-282.5); THYROID STIMULATING HORMONE 1.86 uIU/ml (0.358-3.74)
[2016-10-14] MEDS: SENNOSIDES 8.6MG TABLET (FP) PO SCH (09:15)
[2016-10-14] MEDS: ISOSORBIDE MONONITRATE 60 MG TAB.SR.24H (FP) PO SCH (09:16)
[2016-10-14] MEDS: oxyCODONE HCL 5 MG TABLET PO PRN (09:16)
[2016-10-14] MEDS: PANTOPRAZOLE 40 MG TABLET (FP) PO SCH (09:16)
[2016-10-14] MEDS: NIFEdipine E.R. 90 MG TABLET (FP) PO SCH (09:16)
[2016-10-14] MEDS: FOLIC ACID 1 MG TABLET (FP) PO SCH (09:16)
[2016-10-14] MEDS: ACETAMINOPHEN 325 MG TABLET (FP) PO PRN (09:16)
[2016-10-14] MEDS: TORSEMIDE 20 MG TABLET (FP) PO SCH (09:16)
[2016-10-14] MEDS: CARVEDILOL 25 MG TABLET (FP) PO SCH (09:16)
[2016-10-14] MEDS: FERROUS SO4 325 MG TABLET (FP) PO SCH (09:16)
[2016-10-14] MEDS: LACTULOSE 20 GM/30 ML UDC (FOR ORAL USE ONLY) PO SCH (09:17)
--- NOTE | 2016-10-14 11:21 | PN ---
Progress Note (short form) - Note Progress Note: has chronic left shoulder pain s/p 3 PRBC no bloody bm no SOB Vital Signs - 24 hr 10/13/16 10/13/16 10/13/16 15:06 17:13 21:00 Temperature 98.7 F 98.4 F Pulse Rate 65 59 L Respiratory 20 48 H 20 Rate Blood Pressure 134/76 131/54 O2 Sat by Pulse 100 Oximetry (%) 10/13/16 22:18 Temperature 98.6 F Pulse Rate 58 L Respiratory 20 Rate Blood Pressure 136/66 O2 Sat by Pulse Oximetry (%) Laboratory Results - last 24 hr 10/12/16 10/13/16 10/13/16 21:00 12:39 17:45 WBC 8.1 RBC 2.88 L Hgb 7.8 L Hct 24.1 L MCV 83.8 MCHC 32.4 RDW 16.6 H Plt Count 144 MPV 8.1 Retic Count POC Glucometer 183 Ferritin Vitamin B12 TSH Free T4 Blood Type O POSITIVE Antibody Screen Negative Crossmatch See Detail 10/13/16 10/13/16 10/14/16 18:32 22:22 06:00 WBC RBC Hgb Hct MCV MCHC RDW Plt Count MPV Retic Count 2.54 H POC Glucometer 231 144 Ferritin Vitamin B12 TSH Free T4 Blood Type Antibody Screen Crossmatch 10/14/16 10/14/16 10/14/16 06:00 06:00 06:00 WBC 6.7 RBC 2.93 L Hgb 8.0 L Hct 24.7 L MCV 84.1 MCHC 32.5 RDW 16.8 H Plt Count 127 L MPV 8.0 Retic Count POC Glucometer Ferritin 71.871 Vitamin B12 782 TSH 1.86 D Free T4 1.18 Blood Type Antibody Screen Crossmatch 10/14/16 06:40 WBC RBC Hgb Hct MCV MCHC RDW Plt Count MPV Retic Count POC Glucometer 110 Ferritin Vitamin B12 TSH Free T4 Blood Type Antibody Screen Crossmatch Current Medications Generic Name Dose Route Start Last Admin Trade Name Freq PRN Reason Stop Dose Admin Acetaminophen 650 mg 10/12/16 22:18 10/14/16 09:16 Tylenol - PO 650 mg Q6H PRN Administration PAIN Albuterol/Ipratropium 1 amp 10/12/16 22:18 Duoneb - NEB QIDR PRN SHORT OF BREATH/WHEEZING Atorvastatin Calcium 10 mg 10/13/16 22:00 10/13/16 22:21 Lipitor - PO 10 mg HS BRYANT Administration Budesonide/Formoterol Fumarate 1 puff 10/13/16 10:00 10/13/16 22:27 Symbicort 160/4.5mcg - IH Not Given BID BRYANT Carvedilol 25 mg 10/13/16 10:00 10/14/16 09:16 Coreg - PO 25 mg DAILY BRYANT Administration Docusate Sodium 100 mg 10/13/16 22:00 10/13/16 22:21 Colace - PO 100 mg HS BRYANT Administration Fentanyl 1 patch 10/12/16 22:30 10/12/16 22:36 Duragesic 25mcg Patch - TD 1 patch Q72H BRYANT Administration Ferrous Sulfate 325 mg 10/13/16 10:00 10/14/16 09:16 Feosol - PO 325 mg DAILY BRYANT Administration Folic Acid 1 mg 10/13/16 10:00 10/14/16 09:16 Folic Acid - PO 1 mg DAILY [facility] Administration Gabapentin 100 mg 10/13/16 06:00 10/14/16 06:41 Neurontin - PO 100 mg TID [facility] Administration Insulin Aspart 1 vial 10/13/16 07:00 10/14/16 06:41 Novolog Vial Sliding Scale - SQ Not Given ACHS [facility] Protocol Insulin Detemir 30 units 10/13/16 07:00 10/14/16 06:42 Levemir Vial SQ 30 unit AM [facility] Administration Isosorbide Mononitrate 60 mg 10/13/16 10:00 10/14/16 09:16 Imdur - PO 60 mg DAILY [facility] Administration Lactulose 30 gm 10/13/16 10:00 10/14/16 09:17 Cephulac (Oral Use) PO 30 gm DAILY [facility] Administration Miscellaneous 1 each 10/12/16 22:41 Duragesic Patch Waste TD PRN PRN Nifedipine 90 mg 10/13/16 10:00 10/14/16 09:16 Procardia Xl - PO 90 mg DAILY [facility] Administration Oxycodone HCl 10 mg 10/12/16 22:18 10/14/16 09:16 Roxicodone - PO 10 mg Q8H PRN Administration PAIN Pantoprazole Sodium 40 mg 10/13/16 10:45 10/14/16 09:16 Protonix - PO 40 mg DAILY [facility] Administration Senna 2 tab 10/13/16 10:00 10/14/16 09:15 Senna - PO 2 tab DAILY [facility] Administration Torsemide 60 mg 10/13/16 10:00 10/14/16 09:16 Demadex - PO 60 mg DAILY [facility] Administration Warfarin Sodium 4 mg 10/13/16 18:00 10/13/16 18:27 Coumadin - PO 4 mg DAILY@1800 [facility] Administration S1 S2 Irregular Morbidly obese Lungs decreased breath sounds B/L Abd- soft, Obese,NT Edema++-- wrinkling skin PLAN IV Venofer today Renal eval pending-- spoke with Dr Mccullough-- pt had seen Dr Turner Xiao for second opinion and wishes to see him for further follow ups-- spoke with Dr Xiao-- Dr Capps covering check BMP, INR Hb improved Problem List - Problems (1) Anemia requiring transfusions Code(s): D64.9 - ANEMIA, UNSPECIFIED (2) Acute on chronic renal insufficiency Code(s): N28.9 - DISORDER OF KIDNEY AND URETER, UNSPECIFIED N18.9 - CHRONIC KIDNEY DISEASE, UNSPECIFIED (3) Afib Code(s): I48.91 - UNSPECIFIED ATRIAL FIBRILLATION Qualifiers: Atrial fibrillation type: persistent Qualified Code(s): I48.1 - Persistent atrial fibrillation (4) Anemia Code(s): D64.9 - ANEMIA, UNSPECIFIED Qualifiers: Anemia type: unspecified type Qualified Code(s): D64.9 - Anemia, unspecified
[2016-10-14 11:40] LABS: ANION GAP 8 (8-16); CALCIUM 8.2 mg/dL (8.5-10.1); CO2 31 mmol/L (21-32); CREATININE 3.1 mg/dL (0.55-1.02); GLUCOSE,RANDOM 86 mg/dL (74-106)
[2016-10-14 12:25] LABS: INR 1.81 (0.82-1.09); PROTHROMBIN TIME (PATIENT) 20.2 SEC (9.98-11.88)
[2016-10-14] MEDS ORDERED: IRON SUCROSE INJECTION 300 MG in SODIUM CHLORIDE 235 ML IVPB ONE (12:30)
[2016-10-14] MEDS: BUDESONIDE/FORMETEROL FUMARATE 160/4.5 mcg INHALER IH SCH ×2 (14:09→23:30)
--- NOTE | 2016-10-14 16:16 | CONSULT ---
Consultation: REQUESTING PROVIDER: CONSULT REQUEST: We have been asked to medically evaluate this patient for CKD with anemia HISTORY OF PRESENT ILLNESS: 70 year old female with a significant past medical history of hypertension, hyperlipidemia,CKD, morbid obesity, DM, CHF, CAD, atrial fibrillation, asthma , chronic anemia who presents to the emergency department for a blood transfusion secondary to abnormal blood work. The patient reports associated shortness of breath and chills. She denies any chest pain, headache or abdominal pain. The patient notes that she has received multiple transfusions n past last one being here at [facility] in September 2016. REVIEW OF SYSTEMS: CONSTITUTIONAL: Absent: fever, chills, diaphoresis, generalized weakness, malaise, loss of appetite, weight change HEENT: Absent: rhinorrhea, nasal congestion, throat pain, throat swelling, difficulty swallowing, mouth swelling, ear pain, eye pain, visual changes CARDIOVASCULAR: Absent: chest pain, syncope, palpitations, irregular heart rate, lightheadedness , peripheral edema RESPIRATORY: Absent: cough, shortness of breath, dyspnea with exertion, orthopnea, wheezing, stridor, hemoptysis GASTROINTESTINAL: Absent: abdominal pain, abdominal distension, nausea, vomiting, diarrhea, constipation, melena, hematochezia GENITOURINARY: Absent: dysuria, frequency, urgency, hesitancy, hematuria, flank pain, genital pain MUSCULOSKELETAL: Absent: myalgia, arthralgia, joint swelling, back pain, neck pain SKIN: Absent: rash, itching, pallor HEMATOLOGIC/IMMUNOLOGIC: Absent: easy bleeding, easy bruising, lymphadenopathy, frequent infections ENDOCRINE: Absent: unexplained weight gain, unexplained weight loss, heat intolerance, cold intolerance NEUROLOGIC: Absent: headache, focal weakness or paresthesias, dizziness, unsteady gait, seizure, mental status changes, bladder or bowel incontinence PSYCHIATRIC: Absent: anxiety, depression, suicidal or homicidal ideation, hallucinations. PHYSICAL EXAMINATION Vital Signs - 24 hr 10/13/16 10/13/16 10/13/16 17:13 21:00 22:18 Temperature 98.4 F 98.6 F Pulse Rate 59 L 58 L Respiratory 48 H 20 20 Rate Blood Pressure 131/54 136/66 O2 Sat by Pulse 100 Oximetry (%) GENERAL: Awake, alert, and fully oriented, in no acute distress. HEAD: Normal with no signs of trauma. EYES: Pupils equal, round and reactive to light, extraocular movements intact, sclera anicteric, conjunctiva clear. No lid lag. EARS, NOSE, THROAT: Ears normal, nares patent, oropharynx clear without exudates. Moist mucous membranes. NECK: Normal range of motion, supple without lymphadenopathy, JVD, or masses. LUNGS: Breath sounds equal, clear to auscultation bilaterally. No wheezes, and no crackles. No accessory muscle use. HEART: Regular rate and rhythm, normal S1 and S2 without murmur, rub or gallop. ABDOMEN: Soft, nontender, not distended, normoactive bowel sounds, no guarding, no rebound, no masses. No hepatomegaly or splenomegaly. MUSCULOSKELETAL: Normal range of motion at all joints. No bony deformities or tenderness. No CVA tenderness. UPPER EXTREMITIES: 2+ pulses, warm, well-perfused. No cyanosis. No clubbing. Cap refill <2 seconds. No peripheral edema. LOWER EXTREMITIES: 2+ pulses, warm, well-perfused. No calf tenderness. No peripheral edema. NEUROLOGICAL: Cranial nerves II-XII intact. Normal speech. Normal gait. PSYCHIATRIC: Cooperative. Good eye contact. Appropriate mood and affect. SKIN: Warm, dry, normal turgor, no rashes or lesions noted. Laboratory Results - last 24 hr 10/13/16 10/13/16 10/13/16 17:45 18:32 22:22 WBC 8.1 RBC 2.88 L Hgb 7.8 L Hct 24.1 L MCV 83.8 MCHC 32.4 RDW 16.6 H Plt Count 144 MPV 8.1 Retic Count INR Sodium Potassium Chloride Carbon Dioxide Anion Gap BUN Creatinine POC Glucometer 231 144 Random Glucose Calcium Ferritin Vitamin B12 TSH Free T4 10/14/16 10/14/16 10/14/16 06:00 06:00 06:00 WBC 6.7 RBC 2.93 L Hgb 8.0 L Hct 24.7 L MCV 84.1 MCHC 32.5 RDW 16.8 H Plt Count 127 L MPV 8.0 Retic Count 2.54 H INR Sodium 143 Potassium 5.1 Chloride 104 Carbon Dioxide 31 Anion Gap 8 BUN 125 H* Creatinine 3.1 H POC Glucometer Random Glucose 86 D Calcium 8.2 L Ferritin 71.871 Vitamin B12 TSH 1.86 D Free T4 10/14/16 10/14/16 10/14/16 06:00 06:00 06:40 WBC RBC Hgb Hct MCV MCHC RDW Plt Count MPV Retic Count INR Sodium Cancelled Potassium Cancelled Chloride Cancelled Carbon Dioxide Cancelled Anion Gap Cancelled BUN Cancelled Creatinine Cancelled POC Glucometer 110 Random Glucose Cancelled Calcium Cancelled Ferritin Vitamin B12 782 TSH Free T4 1.18 10/14/16 10/14/16 11:25 12:02 WBC RBC Hgb Hct MCV MCHC RDW Plt Count MPV Retic Count INR 1.81 H Sodium Potassium Chloride Carbon Dioxide Anion Gap BUN Creatinine POC Glucometer 134 Random Glucose Calcium Ferritin Vitamin B12 TSH Free T4 Active Medications Generic Name Dose Route Start Last Admin Trade Name Freq PRN Reason Stop Dose Admin Acetaminophen 650 mg 10/12/16 22:18 10/14/16 09:16 Tylenol - PO 650 mg Q6H PRN Administration PAIN Albuterol/Ipratropium 1 amp 10/12/16 22:18 Duoneb - NEB QIDR PRN SHORT OF BREATH/WHEEZING Atorvastatin Calcium 10 mg 10/13/16 22:00 10/13/16 22:21 Lipitor - PO 10 mg HS BRYANT Administration Budesonide/Formoterol Fumarate 1 puff 10/13/16 10:00 10/14/16 14:09 Symbicort 160/4.5mcg - IH 1 puff BID [facility] Administration Carvedilol 25 mg 10/13/16 10:00 10/14/16 09:16 Coreg - PO 25 mg DAILY [facility] Administration Docusate Sodium 100 mg 10/13/16 22:00 10/13/16 22:21 Colace - PO 100 mg HS [facility] Administration Fentanyl 1 patch 10/12/16 22:30 10/12/16 22:36 Duragesic 25mcg Patch - TD 1 patch Q72H [facility] Administration Ferrous Sulfate 325 mg 10/13/16 10:00 10/14/16 09:16 Feosol - PO 325 mg DAILY [facility] Administration Folic Acid 1 mg 10/13/16 10:00 10/14/16 09:16 Folic Acid - PO 1 mg DAILY [facility] Administration Gabapentin 100 mg 10/13/16 06:00 10/14/16 14:10 Neurontin - PO 100 mg TID [facility] Administration Insulin Aspart 1 vial 10/13/16 07:00 10/14/16 14:09 Novolog Vial Sliding Scale - SQ Not Given ACHS [facility] Protocol Insulin Detemir 30 units 10/13/16 07:00 10/14/16 06:42 Levemir Vial SQ 30 unit AM [facility] Administration Isosorbide Mononitrate 60 mg 10/13/16 10:00 10/14/16 09:16 Imdur - PO 60 mg DAILY [facility] Administration Lactulose 30 gm 10/13/16 10:00 10/14/16 09:17 Cephulac (Oral Use) PO 30 gm DAILY [facility] Administration Miscellaneous 1 each 10/12/16 22:41 Duragesic Patch Waste TD PRN PRN Nifedipine 90 mg 10/13/16 10:00 10/14/16 09:16 Procardia Xl - PO 90 mg DAILY [facility] Administration Oxycodone HCl 10 mg 10/12/16 22:18 10/14/16 09:16 Roxicodone - PO 10 mg Q8H PRN Administration PAIN Pantoprazole Sodium 40 mg 10/13/16 10:45 10/14/16 09:16 Protonix - PO 40 mg DAILY [facility] Administration Senna 2 tab 10/13/16 10:00 10/14/16 09:15 Senna - PO 2 tab DAILY [facility] Administration Torsemide 60 mg 10/13/16 10:00 10/14/16 09:16 Demadex - PO 60 mg DAILY [facility] Administration Warfarin Sodium 5 mg 10/14/16 18:00 Coumadin - PO DAILY@1800 [facility] ASSESSMENT/PLAN: Dispo: We will continue to follow the patient. Thank you for this consultative opportunity. Problem List - Problems (1) CKD (chronic kidney disease) stage 5, GFR less than 15 ml/min Assessment/Plan: * BUN elevation could represent slow GI bleed- will get stool guiac. * Cr. is at baseline. will continue to monitor. * Will continue diurectics for now. * Iron studies pending. * On EPO * Discussed with her the possibility of needing dialysis and fistula placement. * Seen by Dr. Xiao as outpatient. Discussed with him her case. (2) Anemia requiring transfusions Assessment/Plan: * Iron studies pending. * Currently on Iron supplement drip * Has been transfused 2units with appropriate response * repeat H/H (3) Afib Assessment/Plan: * Carvedilol (Coreg -) 25 mg PO DAILY * Warfarin Sodium (Coumadin -) 5 mg PO DAILY@1800 [facility] (4) CHF (congestive heart failure) Assessment/Plan: * Atorvastatin Calcium (Lipitor -) 10 mg PO HS * Carvedilol (Coreg -) 25 mg PO DAILY [facility] * Torsemide (Demadex -) 60 mg PO DAILY [facility] (5) COPD (chronic obstructive pulmonary disease) Assessment/Plan: * Albuterol/Ipratropium (Duoneb -) 1 amp NEB QIDR PRN * Budesonide/Formoterol Fumarate (Symbicort 160/4.5mcg -) 1 puff IH BID (6) Diabetes mellitus Assessment/Plan: * Insulin Aspart (Novolog Vial Sliding Scale -) 1 vial SQ ACHS [facility] * Insulin Detemir (Levemir Vial) 30 units SQ AM [facility] Visit type - Emergency Visit Emergency Visit: Yes ED Registration Date: 10/12/16 Care time: The patient presented to the Emergency Department on the above date and was hospitalized for further evaluation of their emergent condition. - New Patient This patient is new to me today: Yes Date on this admission: 10/14/16 - Critical Care Critical Care patient: No
--- NOTE | 2016-10-14 16:53 | PN ---
Teaching Attending Note Name of Resident: Fan Herron (Nephrology) ATTENDING PHYSICIAN STATEMENT I saw and evaluated the patient. I reviewed the resident's note and discussed the case with the resident. I agree with the resident's findings and plan as documented. Nephrology Consult Please see resident note. Pt is a 70 year old female with history listed who was sent in for blood transfusion. I was called to evaluate her for CKD. Pt was following with Dr Mccullough at one point and then she switched to Dr Xiao. I did call him and discuss her care. Pt is wake and alert. She denies chest palpitations. She says she gets very swollen and SOB when her diuretics are held. Current Medications Generic Name Dose Route Start Last Admin Trade Name Freq PRN Reason Stop Dose Admin Acetaminophen 650 mg 10/12/16 22:18 10/14/16 09:16 Tylenol - PO 650 mg Q6H PRN Administration PAIN Albuterol/Ipratropium 1 amp 10/12/16 22:18 Duoneb - NEB QIDR PRN SHORT OF BREATH/WHEEZING Atorvastatin Calcium 10 mg 10/13/16 22:00 10/13/16 22:21 Lipitor - PO 10 mg HS BRYANT Administration Budesonide/Formoterol Fumarate 1 puff 10/13/16 10:00 10/14/16 14:09 Symbicort 160/4.5mcg - IH 1 puff BID [facility]YANT Administration Carvedilol 25 mg 10/13/16 10:00 10/14/16 09:16 Coreg - PO 25 mg DAILY BRYANT Administration Docusate Sodium 100 mg 10/13/16 22:00 10/13/16 22:21 Colace - PO 100 mg HS BRYANT Administration Fentanyl 1 patch 10/12/16 22:30 10/12/16 22:36 Duragesic 25mcg Patch - TD 1 patch Q72H BR[facility]ANT Administration Ferrous Sulfate 325 mg 10/13/16 10:00 10/14/16 09:16 Feosol - PO 325 mg DAILY BRYANT Administration Folic Acid 1 mg 10/13/16 10:00 10/14/16 09:16 Folic Acid - PO 1 mg DAILY BR[facility]ANT Administration Gabapentin 100 mg 10/13/16 06:00 10/14/16 14:10 Neurontin - PO 100 mg TID BRYANT Administration Insulin Aspart 1 vial 10/13/16 07:00 10/14/16 14:09 Novolog Vial Sliding Scale - SQ Not Given ACHS [facility] Protocol Insulin Detemir 30 units 10/13/16 07:00 10/14/16 06:42 Levemir Vial SQ 30 unit AM [facility]YANT Administration Isosorbide Mononitrate 60 mg 10/13/16 10:00 10/14/16 09:16 Imdur - PO 60 mg DAILY BRYANT Administration Lactulose 30 gm 10/13/16 10:00 10/14/16 09:17 Cephulac (Oral Use) PO 30 gm DAILY BRYANT Administration Miscellaneous 1 each 10/12/16 22:41 Duragesic Patch Waste TD PRN PRN Nifedipine 90 mg 10/13/16 10:00 10/14/16 09:16 Procardia Xl - PO 90 mg DAILY [facility] Administration Oxycodone HCl 10 mg 10/12/16 22:18 10/14/16 09:16 Roxicodone - PO 10 mg Q8H PRN Administration PAIN Pantoprazole Sodium 40 mg 10/13/16 10:45 10/14/16 09:16 Protonix - PO 40 mg DAILY BRYANT Administration Senna 2 tab 10/13/16 10:00 10/14/16 09:15 Senna - PO 2 tab DAILY [facility] Administration Torsemide 60 mg 10/13/16 10:00 10/14/16 09:16 Demadex - PO 60 mg DAILY BR[facility] Administration Warfarin Sodium 5 mg 10/14/16 18:00 Coumadin - PO DAILY@1800 [facility] Laboratory Tests 07/27/16 09/09/16 09/10/16 08:15 18:27 06:25 WBC Hgb Plt Count BUN Creatinine Creat Clearance w eGFR 16.71 14.85 16.04 Urine Protein Urine Blood 09/11/16 09/12/16 10/12/16 06:30 07:00 21:00 WBC Hgb Plt Count BUN Creatinine 2.9 H 2.8 H 3.2 H Creat Clearance w eGFR 16.04 14.32 Urine Protein Urine Blood 10/12/16 10/13/16 10/13/16 22:18 10:00 17:45 WBC 8.1 Hgb 7.8 L Plt Count 144 BUN Creatinine 3.0 H Creat Clearance w eGFR 15.43 Urine Protein 1+ H Urine Blood 1+ H 10/14/16 10/14/16 06:00 06:00 WBC 6.7 Hgb 8.0 L Plt Count 127 L BUN 125 H* Creatinine 3.1 H Creat Clearance w eGFR Urine Protein Urine Blood Last Vital Signs Temp Pulse Resp BP Pulse Ox 98 F 64 20 116/58 100 10/14/16 10:00 10/14/16 10:00 10/14/16 10:00 10/14/16 10:00 10/14/16 10:00 cardio s1s2 pulm distant Gi obese ext edema neuro awake and alert Impression 1. CKD 2. obesity 3. hyperlipidemia 4. HTN 5. DM 6. CHF 7. CAD 8. anemia 9. 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
[2016-10-14] MEDS: WARFARIN NA 5 MG TABLET (UD) PO SCH (17:57)
--- NOTE | 2016-10-14 18:57 | PN ---
Progress Note (short form) - Note Progress Note: Patient seen and examined Denies any complaints Last Vital Signs Temp Pulse Resp BP Pulse Ox 98 F 64 20 116/58 100 10/14/16 10:00 10/14/16 10:00 10/14/16 10:00 10/14/16 10:00 10/14/16 10:00 Cor: RSR, No murmurs, No gallops Lungs: Clear to P&A Abd: Soft, Normal bowel sounds, No organomegaly morbidly obese Abnormal Lab Results 10/14/16 10/14/16 10/14/16 06:00 06:00 06:00 RBC 2.93 L Hgb 8.0 L Hct 24.7 L RDW 16.8 H Plt Count 127 L Retic Count 2.54 H INR BUN 125 H* Creatinine 3.1 H Calcium 8.2 L 10/14/16 11:25 RBC Hgb Hct RDW Plt Count Retic Count INR 1.81 H BUN Creatinine Calcium Active Medications Generic Name Dose Route Start Last Admin Trade Name Freq PRN Reason Stop Dose Admin Acetaminophen 650 mg 10/12/16 22:18 10/14/16 09:16 Tylenol - PO 650 mg Q6H PRN Administration PAIN Albuterol/Ipratropium 1 amp 10/12/16 22:18 Duoneb - NEB QIDR PRN SHORT OF BREATH/WHEEZING Atorvastatin Calcium 10 mg 10/13/16 22:00 10/13/16 22:21 Lipitor - PO 10 mg HS BRYANT Administration Budesonide/Formoterol Fumarate 1 puff 10/13/16 10:00 10/14/16 14:09 Symbicort 160/4.5mcg - IH 1 puff BID BRYANT Administration Carvedilol 25 mg 10/13/16 10:00 10/14/16 09:16 Coreg - PO 25 mg DAILY BRYANT Administration Docusate Sodium 100 mg 10/13/16 22:00 10/13/16 22:21 Colace - PO 100 mg HS BRYANT Administration Fentanyl 1 patch 10/12/16 22:30 10/12/16 22:36 Duragesic 25mcg Patch - TD 1 patch Q72H BRYANT Administration Ferrous Sulfate 325 mg 10/13/16 10:00 10/14/16 09:16 Feosol - PO 325 mg DAILY [facility]ANT Administration Folic Acid 1 mg 10/13/16 10:00 10/14/16 09:16 Folic Acid - PO 1 mg DAILY [facility] Administration Gabapentin 100 mg 10/13/16 06:00 10/14/16 14:10 Neurontin - PO 100 mg TID BRYANT Administration Insulin Aspart 1 vial 10/13/16 07:00 10/14/16 17:55 Novolog Vial Sliding Scale - SQ Not Given ACHS [facility] Protocol Insulin Detemir 30 units 10/13/16 07:00 10/14/16 06:42 Levemir Vial SQ 30 unit AM [facility] Administration Isosorbide Mononitrate 60 mg 10/13/16 10:00 10/14/16 09:16 Imdur - PO 60 mg DAILY [facility] Administration Lactulose 30 gm 10/13/16 10:00 10/14/16 09:17 Cephulac (Oral Use) PO 30 gm DAILY [facility] Administration Miscellaneous 1 each 10/12/16 22:41 Duragesic Patch Waste TD PRN PRN Nifedipine 90 mg 10/13/16 10:00 10/14/16 09:16 Procardia Xl - PO 90 mg DAILY [facility] Administration Oxycodone HCl 10 mg 10/12/16 22:18 10/14/16 09:16 Roxicodone - PO 10 mg Q8H PRN Administration PAIN Pantoprazole Sodium 40 mg 10/13/16 10:45 10/14/16 09:16 Protonix - PO 40 mg DAILY BR[facility]ANT Administration Senna 2 tab 10/13/16 10:00 10/14/16 09:15 Senna - PO 2 tab DAILY [facility] Administration Torsemide 60 mg 10/13/16 10:00 10/14/16 09:16 Demadex - PO 60 mg DAILY [facility] Administration Warfarin Sodium 5 mg 10/14/16 18:00 10/14/16 17:57 Coumadin - PO 5 mg DAILY@1800 BR[facility] Administration A/P 70 y/o patient with morbid obesity, CKD, anemia anemia of chronic diseas.+/- gi blood loss Ferritin 71 iron sat is pending s/p iv iron 300mg procrit per renal Problem List - Problems (1) Anemia requiring transfusions Code(s): D64.9 - ANEMIA, UNSPECIFIED (2) Anemia, blood loss Code(s): D50.0 - IRON DEFICIENCY ANEMIA SECONDARY TO BLOOD LOSS (CHRONIC) (3) Afib Code(s): I48.91 - UNSPECIFIED ATRIAL FIBRILLATION Qualifiers: Atrial fibrillation type: persistent Qualified Code(s): I48.1 - Persistent atrial fibrillation (4) Anticoagulated on Coumadin Code(s): Z51.81 - ENCOUNTER FOR THERAPEUTIC DRUG LEVEL MONITORING Z79.01 - 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
[2016-10-14] MEDS ORDERED: PT OWN MED DRAWER 7, Y5N ONE (20:52)
[2016-10-14] MEDS: DOCUSATE SODIUM 100 MG CAPSULE (FP) PO SCH (22:15)
[2016-10-14] MEDS: ATORVASTATIN CA 10 MG TABLET (FP) PO SCH (22:15)
[2016-10-15] MEDS: oxyCODONE HCL 5 MG TABLET PO PRN ×3 (02:04→18:13)
[2016-10-15] MEDS: ACETAMINOPHEN 325 MG TABLET (FP) PO PRN ×2 (02:10→13:46)
[2016-10-15 06:06] LABS: SERUM IRON 28 ug/dL (27-139); TOTAL IRON BINDING CAPACITY 249 ug/dL (250-450); UIBC 221 ug/dL (118-369)
[2016-10-15] MEDS: INSULIN SLIDING SCALE (NOVOLOG) 1 VIAL SQ SCH ×4 (06:37→21:48)
[2016-10-15] MEDS: GABAPENTIN 100 MG CAPSULE (FP) PO SCH ×3 (06:37→21:48)
[2016-10-15] MEDS: INSULIN DETEMIR 100 UNITS/ML MDV SQ SCH (06:38)
--- NOTE | 2016-10-15 09:32 | PN ---
Progress Note (short form) - Note Progress Note: pt seen/ examined. chart reviewed comfortable Vital Signs Temp 97.3 F L 10/15/16 06:15 Pulse 53 L 10/15/16 06:15 Resp 20 10/15/16 06:15 BP 151/75 10/15/16 06:15 Pulse Ox 99 10/14/16 21:00 Intake & Output 10/14/16 10/14/16 10/15/16 11:59 23:59 11:59 Intake Total 100 260 240 Balance 100 260 240 Intake: Oral 100 260 240 Other: Voiding Method Incontinent Incontinent # Unmeasured Voids Void 1 2 Bowel Movement No Active Medications Acetaminophen (Tylenol -) 650 mg PO Q6H PRN PRN Reason: PAIN Last Admin: 10/15/16 02:10 Dose: 650 mg Albuterol/Ipratropium (Duoneb -) 1 amp NEB QIDR PRN PRN Reason: SHORT OF BREATH/WHEEZING Atorvastatin Calcium (Lipitor -) 10 mg PO HS [facility] Last Admin: 10/14/16 22:15 Dose: 10 mg Budesonide/Formoterol Fumarate (Symbicort 160/4.5mcg -) 1 puff IH BID [facility] Last Admin: 10/14/16 23:30 Dose: Not Given Carvedilol (Coreg -) 25 mg PO DAILY [facility] Last Admin: 10/14/16 09:16 Dose: 25 mg Docusate Sodium (Colace -) 100 mg PO HS [facility] Last Admin: 10/14/16 22:15 Dose: 100 mg Fentanyl (Duragesic 25mcg Patch -) 1 patch TD Q72H [facility] Last Admin: 10/12/16 22:36 Dose: 1 patch Ferrous Sulfate (Feosol -) 325 mg PO DAILY [facility] Last Admin: 10/14/16 09:16 Dose: 325 mg Folic Acid (Folic Acid -) 1 mg PO DAILY [facility] Last Admin: 10/14/16 09:16 Dose: 1 mg Gabapentin (Neurontin -) 100 mg PO TID [facility] Last Admin: 10/15/16 06:37 Dose: 100 mg Insulin Aspart (Novolog Vial Sliding Scale -) 1 vial SQ ACHS [facility] PRN Reason: Protocol Last Admin: 10/15/16 06:37 Dose: Not Given Insulin Detemir (Levemir Vial) 30 units SQ AM [facility] Last Admin: 10/15/16 06:38 Dose: 30 unit Isosorbide Mononitrate (Imdur -) 60 mg PO DAILY [facility] Last Admin: 10/14/16 09:16 Dose: 60 mg Lactulose (Cephulac (Oral Use)) 30 gm PO DAILY [facility] Last Admin: 10/14/16 09:17 Dose: 30 gm Miscellaneous (Duragesic Patch Waste) 1 each TD PRN PRN Nifedipine (Procardia Xl -) 90 mg PO DAILY [facility] Last Admin: 10/14/16 09:16 Dose: 90 mg Oxycodone HCl (Roxicodone -) 10 mg PO Q8H PRN PRN Reason: PAIN Last Admin: 10/15/16 02:04 Dose: 10 mg Pantoprazole Sodium (Protonix -) 40 mg PO DAILY [facility] Last Admin: 10/14/16 09:16 Dose: 40 mg Senna (Senna -) 2 tab PO DAILY [facility] Last Admin: 10/14/16 09:15 Dose: 2 tab Torsemide (Demadex -) 60 mg PO DAILY [facility] Last Admin: 10/14/16 09:16 Dose: 60 mg Warfarin Sodium (Coumadin -) 5 mg PO DAILY@1800 [facility] Last Admin: 10/14/16 17:57 Dose: 5 mg CBC, BMP 10/14/16 06:00 10/14/16 06:00 Physical Exam neck- supple S1 S2 Irregular Lungs --decreased breath sounds at bases Abd- soft, Obese Edema+ a/p continue present care transfuse prn i/v iron sob --ve monitor labs physical therapy renal to follow will follow Problem List - Problems (1) Anemia requiring transfusions Code(s): D64.9 - ANEMIA, UNSPECIFIED (2) Acute on chronic renal insufficiency Code(s): N28.9 - DISORDER OF KIDNEY AND URETER, UNSPECIFIED N18.9 - CHRONIC KIDNEY DISEASE, UNSPECIFIED (3) Afib Code(s): I48.91 - UNSPECIFIED ATRIAL FIBRILLATION Qualifiers: Atrial fibrillation type: persistent Qualified Code(s): I48.1 - Persistent atrial fibrillation (4) Anemia Code(s): D64.9 - ANEMIA, UNSPECIFIED Qualifiers: Anemia type: unspecified type Qualified Code(s): D64.9 - Anemia, unspecified
[2016-10-15] MEDS: ISOSORBIDE MONONITRATE 60 MG TAB.SR.24H (FP) PO SCH (10:12)
[2016-10-15] MEDS: TORSEMIDE 20 MG TABLET (FP) PO SCH (10:12)
[2016-10-15] MEDS: CARVEDILOL 25 MG TABLET (FP) PO SCH (10:12)
[2016-10-15] MEDS: LACTULOSE 20 GM/30 ML UDC (FOR ORAL USE ONLY) PO SCH ×2 (10:12→10:23)
[2016-10-15] MEDS: SENNOSIDES 8.6MG TABLET (FP) PO SCH (10:12)
[2016-10-15] MEDS: NIFEdipine E.R. 90 MG TABLET (FP) PO SCH (10:12)
[2016-10-15] MEDS: PANTOPRAZOLE 40 MG TABLET (FP) PO SCH (10:12)
[2016-10-15] MEDS: FOLIC ACID 1 MG TABLET (FP) PO SCH (10:17)
[2016-10-15] MEDS: FERROUS SO4 325 MG TABLET (FP) PO SCH (10:17)
[2016-10-15 10:38] LABS: BASOPHIL 0.4 % (0-2.0); EOSINOPHIL 3.3 % (0-4.5); MCH 26.8 pg (25.7-33.7); MCHC 31.7 g/dl (32.0-36.0); MEAN CELL VOLUME 84.6 fl (80-96); MEAN PLT VOLUME 7.6 fl (7.5-11.1); NEUTROPHILS 68.4 % (42.8-82.8); PLATELET COUNT 118 K/MM3 (134-434); RDW 16.8 % (11.6-15.6); WHITE BLOOD COUNT 6.3 K/mm3 (4.0-10.0)
[2016-10-15 10:59] LABS: INR 2.27 (0.82-1.09); PROTHROMBIN TIME (PATIENT) 25.4 SEC (9.98-11.88)
[2016-10-15 11:03] LABS: ALK PHOS 41 U/L (45-117); ANION GAP 6 (8-16); BILIRUBIN,TOTAL 0.6 mg/dL (0.2-1.0); CALCIUM 8.3 mg/dL (8.5-10.1); CO2 36 mmol/L (21-32); CREATININE 3.1 mg/dL (0.55-1.02); GLUCOSE,RANDOM 128 mg/dL (74-106); SGOT/AST 9 U/L (15-37); SGPT/ALT 13 U/L (12-78); TOT PROT 6.5 g/dl (6.4-8.2)
[2016-10-15] MEDS: BUDESONIDE/FORMETEROL FUMARATE 160/4.5 mcg INHALER IH SCH ×2 (11:34→21:48)
--- NOTE | 2016-10-15 15:20 | PN ---
Physical Exam: SUBJECTIVE: Patient seen and examined at bedside.No new complaints. no overnight events. Feels better today. Denies CP,MORALES, SOB, Abd. pain, N/V. OBJECTIVE: Vital Signs Period Temp Pulse Resp BP Sys/Contreras Pulse Ox Last 24 Hr 97.3 F-98.5 F 53-60 18-20 125-151/49-75 96-99 GENERAL: AAOx3 NAD HEAD: NC/AT EYES: PERRL, EOMI, ENT: moist mucous membranes. NECK: supple, thick neck LUNGS:Decreased breath sounds bilat. No wheezing HEART: RRR, S1S2 ABDOMEN: Soft,morbidly obese, non tender, BS(+) EXTREMITIES: 2+ pulses, warm, well-perfused, 4+ LE edema NEUROLOGICAL: awake and alert. Laboratory Results - last 24 hr 10/14/16 10/14/16 10/14/16 06:00 17:06 18:30 WBC RBC Hgb Hct MCV MCHC RDW Plt Count MPV Neutrophils % Lymphocytes % Monocytes % Eosinophils % Basophils % INR Sodium Potassium Chloride Carbon Dioxide Anion Gap BUN Creatinine Creat Clearance w eGFR POC Glucometer 156 Random Glucose Calcium Iron 28 TIBC 249 L Iron Saturation 11 L Total Bilirubin AST ALT Alkaline Phosphatase Total Protein Albumin Stool Occult Blood Negative 10/14/16 10/15/16 10/15/16 21:30 06:00 10:25 WBC 6.3 RBC 2.93 L Hgb 7.8 L Hct 24.8 L MCV 84.6 MCHC 31.7 L RDW 16.8 H Plt Count 118 L MPV 7.6 Neutrophils % 68.4 Lymphocytes % 18.9 Monocytes % 9.0 Eosinophils % 3.3 Basophils % 0.4 INR Sodium Potassium Chloride Carbon Dioxide Anion Gap BUN Creatinine Creat Clearance w eGFR POC Glucometer 186 136 Random Glucose Calcium Iron TIBC Iron Saturation Total Bilirubin AST ALT Alkaline Phosphatase Total Protein Albumin Stool Occult Blood 10/15/16 10/15/16 10/15/16 10:25 10:25 11:36 WBC RBC Hgb Hct MCV MCHC RDW Plt Count MPV Neutrophils % Lymphocytes % Monocytes % Eosinophils % Basophils % INR 2.27 H Sodium 143 Potassium 5.0 Chloride 101 Carbon Dioxide 36 H Anion Gap 6 L BUN 120 H* Creatinine 3.1 H Creat Clearance w eGFR 14.85 POC Glucometer 150 Random Glucose 128 H D Calcium 8.3 L Iron TIBC Iron Saturation Total Bilirubin 0.6 AST 9 L ALT 13 Alkaline Phosphatase 41 L Total Protein 6.5 Albumin 3.0 L Stool Occult Blood Active Medications Generic Name Dose Route Start Last Admin Trade Name Taiwo PRN Reason Stop Dose Admin Acetaminophen 650 mg 10/12/16 22:18 10/15/16 13:46 Tylenol - PO 650 mg Q6H PRN Administration PAIN Albuterol/Ipratropium 1 amp 10/12/16 22:18 Duoneb - NEB QIDR PRN SHORT OF BREATH/WHEEZING Atorvastatin Calcium 10 mg 10/13/16 22:00 10/14/16 22:15 Lipitor - PO 10 mg HS BRYANT Administration Budesonide/Formoterol Fumarate 1 puff 10/13/16 10:00 10/15/16 11:34 Symbicort 160/4.5mcg - IH Not Given BID BRYNAT Carvedilol 25 mg 10/13/16 10:00 10/15/16 10:12 Coreg - PO 25 mg DAILY [facility]YANT Administration Docusate Sodium 100 mg 10/13/16 22:00 10/14/16 22:15 Colace - PO 100 mg HS BRYANT Administration Fentanyl 1 patch 10/12/16 22:30 10/12/16 22:36 Duragesic 25mcg Patch - TD 1 patch Q72H BRYANT Administration Ferrous Sulfate 325 mg 10/13/16 10:00 10/15/16 10:17 Feosol - PO 325 mg DAILY [facility]YANT Administration Folic Acid 1 mg 10/13/16 10:00 10/15/16 10:17 Folic Acid - PO 1 mg DAILY BRYANT Administration Gabapentin 100 mg 10/13/16 06:00 10/15/16 13:46 Neurontin - PO 100 mg TID BRYANT Administration Insulin Aspart 1 vial 10/13/16 07:00 10/15/16 11:37 Novolog Vial Sliding Scale - SQ Not Given ACHS [facility] Protocol Insulin Detemir 30 units 10/13/16 07:00 10/15/16 06:38 Levemir Vial SQ 30 unit AM [facility]YANT Administration Isosorbide Mononitrate 60 mg 10/13/16 10:00 10/15/16 10:12 Imdur - PO 60 mg DAILY [facility] Administration Lactulose 30 gm 10/13/16 10:00 10/15/16 10:23 Cephulac (Oral Use) PO Not Given DAILY BRYANT Miscellaneous 1 each 10/12/16 22:41 Duragesic Patch Waste TD PRN PRN Nifedipine 90 mg 10/13/16 10:00 10/15/16 10:12 Procardia Xl - PO 90 mg DAILY [facility] Administration Oxycodone HCl 10 mg 10/12/16 22:18 10/15/16 10:11 Roxicodone - PO 10 mg Q8H PRN Administration PAIN Pantoprazole Sodium 40 mg 10/13/16 10:45 10/15/16 10:12 Protonix - PO 40 mg DAILY BRYANT Administration Senna 2 tab 10/13/16 10:00 10/15/16 10:12 Senna - PO 2 tab DAILY [facility] Administration Torsemide 60 mg 10/13/16 10:00 10/15/16 10:12 Demadex - PO 60 mg DAILY [facility] Administration Warfarin Sodium 5 mg 10/14/16 18:00 10/14/16 17:57 Coumadin - PO 5 mg DAILY@1800 BR[facility]ANT Administration ASSESSMENT/PLAN: 70 year old female with a significant past medical history of hypertension, hyperlipidemia,CKD, morbid obesity, DM, CHF, CAD, atrial fibrillation, asthma , chronic anemia who presents to the emergency department for a blood transfusion secondary to abnormal blood work. Problem List - Problems (1) CKD (chronic kidney disease) stage 5, GFR less than 15 ml/min Assessment/Plan: * BUN improving - need to r/o slow GI bleed. * Cr. is at baseline. will continue to monitor. * Will continue diurectics for now. * Iron studies show low iron , low tibc, and low ferritin. * On EPO * Discussed with her the possibility of needing dialysis and fistula placement. (2) Anemia requiring transfusions Assessment/Plan: * Iron studies pending. * Currently on Iron supplement drip * Has been transfused 2units with appropriate response * repeat H/H (3) Afib Assessment/Plan: * Carvedilol (Coreg -) 25 mg PO DAILY * Warfarin Sodium (Coumadin -) 5 mg PO DAILY@1800 BR[facility] (4) CHF (congestive heart failure) Assessment/Plan: * Atorvastatin Calcium (Lipitor -) 10 mg PO HS * Carvedilol (Coreg -) 25 mg PO DAILY [facility]YANT * Torsemide (Demadex -) 60 mg PO DAILY [facility]YANT (5) COPD (chronic obstructive pulmonary disease) Assessment/Plan: * Albuterol/Ipratropium (Duoneb -) 1 amp NEB QIDR PRN * Budesonide/Formoterol Fumarate (Symbicort 160/4.5mcg -) 1 puff IH BID (6) Diabetes mellitus Assessment/Plan: * Insulin Aspart (Novolog Vial Sliding Scale -) 1 vial SQ ACHS BRYANT * Insulin Detemir (Levemir Vial) 30 units SQ AM [facility]YANT Visit type - Emergency Visit Emergency Visit: Yes ED Registration Date: 10/12/16 Care time: The patient presented to the Emergency Department on the above date and was hospitalized for further evaluation of their emergent condition. - New Patient This patient is new to me today: No - Critical Care Critical Care patient: No - Discharge Referral Referred to [facility] No
--- NOTE | 2016-10-15 15:38 | PN ---
Teaching Attending Note Name of Resident: Fan Herron (Nephrology) ATTENDING PHYSICIAN STATEMENT I saw and evaluated the patient. I reviewed the resident's note and discussed the case with the resident. I agree with the resident's findings and plan as documented. Current Medications Generic Name Dose Route Start Last Admin Trade Name Freq PRN Reason Stop Dose Admin Acetaminophen 650 mg 10/12/16 22:18 10/15/16 13:46 Tylenol - PO 650 mg Q6H PRN Administration PAIN Albuterol/Ipratropium 1 amp 10/12/16 22:18 Duoneb - NEB QIDR PRN SHORT OF BREATH/WHEEZING Atorvastatin Calcium 10 mg 10/13/16 22:00 10/14/16 22:15 Lipitor - PO 10 mg HS BRYANT Administration Budesonide/Formoterol Fumarate 1 puff 10/13/16 10:00 10/15/16 11:34 Symbicort 160/4.5mcg - IH Not Given BID BRYANT Carvedilol 25 mg 10/13/16 10:00 10/15/16 10:12 Coreg - PO 25 mg DAILY BRYANT Administration Docusate Sodium 100 mg 10/13/16 22:00 10/14/16 22:15 Colace - PO 100 mg HS BRYANT Administration Fentanyl 1 patch 10/12/16 22:30 10/12/16 22:36 Duragesic 25mcg Patch - TD 1 patch Q72H BRYANT Administration Ferrous Sulfate 325 mg 10/13/16 10:00 10/15/16 10:17 Feosol - PO 325 mg DAILY [facility]YANT Administration Folic Acid 1 mg 10/13/16 10:00 10/15/16 10:17 Folic Acid - PO 1 mg DAILY [facility]ANT Administration Gabapentin 100 mg 10/13/16 06:00 10/15/16 13:46 Neurontin - PO 100 mg TID BRYANT Administration Insulin Aspart 1 vial 10/13/16 07:00 10/15/16 11:37 Novolog Vial Sliding Scale - SQ Not Given ACHS [facility] Protocol Insulin Detemir 30 units 10/13/16 07:00 10/15/16 06:38 Levemir Vial SQ 30 unit AM [facility]ANT Administration Isosorbide Mononitrate 60 mg 10/13/16 10:00 10/15/16 10:12 Imdur - PO 60 mg DAILY [facility] Administration Lactulose 30 gm 10/13/16 10:00 10/15/16 10:23 Cephulac (Oral Use) PO Not Given DAILY BRYANT Miscellaneous 1 each 10/12/16 22:41 Duragesic Patch Waste TD PRN PRN Nifedipine 90 mg 10/13/16 10:00 10/15/16 10:12 Procardia Xl - PO 90 mg DAILY [facility] Administration Oxycodone HCl 10 mg 10/12/16 22:18 10/15/16 10:11 Roxicodone - PO 10 mg Q8H PRN Administration PAIN Pantoprazole Sodium 40 mg 10/13/16 10:45 10/15/16 10:12 Protonix - PO 40 mg DAILY [facility]ANT Administration Senna 2 tab 10/13/16 10:00 10/15/16 10:12 Senna - PO 2 tab DAILY [facility] Administration Torsemide 60 mg 10/13/16 10:00 10/15/16 10:12 Demadex - PO 60 mg DAILY [facility] Administration Warfarin Sodium 5 mg 10/14/16 18:00 10/14/16 17:57 Coumadin - PO 5 mg DAILY@1800 BRYANT Administration Laboratory Tests 10/15/16 10:25 Sodium 143 Potassium 5.0 Chloride 101 Carbon Dioxide 36 H Anion Gap 6 L BUN 120 H* Creatinine 3.1 H Laboratory Tests 10/14/16 10/14/16 06:00 06:00 Iron 28 TIBC 249 L Iron Saturation 11 L Ferritin 71.871 Laboratory Tests 10/14/16 18:30 Stool Occult Blood Negative cardio s1s2 pulm distant Gi obese ext edema neuro awake and alert Impression 1. CKD 2. obesity 3. hyperlipidemia 4. HTN 5. DM 6. CHF 7. CAD 8. anemia 9. a-fib 10. iron deficiency Plan - renal function at baseline - cont diuretics - cont iron supplements - recommend weight loss of possible - pt does not want HD at this time Dr Capps
--- NOTE | 2016-10-15 17:45 | PN ---
Progress Note (short form) - Note Progress Note: Patient seen and examined Lying in bed No specific complaints on ROS Last Vital Signs Temp Pulse Resp BP Pulse Ox 98.6 F 51 L 20 132/61 96 10/15/16 17:05 10/15/16 17:05 10/15/16 17:05 10/15/16 17:05 10/15/16 09:00 Morbidly obese Lungs- diminished breath sounds Cor -irregular Abd- obese SCD CBC, BMP 10/15/16 10:25 10/15/16 10:25 Abnormal Lab Results 10/14/16 10/15/16 10/15/16 06:00 10:25 10:25 RBC 2.93 L Hgb 7.8 L Hct 24.8 L MCHC 31.7 L RDW 16.8 H Plt Count 118 L INR 2.27 H Carbon Dioxide Anion Gap BUN Creatinine Random Glucose Calcium TIBC 249 L Iron Saturation 11 L AST Alkaline Phosphatase Albumin 10/15/16 10:25 RBC Hgb Hct MCHC RDW Plt Count INR Carbon Dioxide 36 H Anion Gap 6 L BUN 120 H* Creatinine 3.1 H Random Glucose 128 H D Calcium 8.3 L TIBC Iron Saturation AST 9 L Alkaline Phosphatase 41 L Albumin 3.0 L Current Medications Generic Name Dose Route Start Last Admin Trade Name Freq PRN Reason Stop Dose Admin Acetaminophen 650 mg 10/12/16 22:18 10/15/16 13:46 Tylenol - PO 650 mg Q6H PRN Administration PAIN Albuterol/Ipratropium 1 amp 10/12/16 22:18 Duoneb - NEB QIDR PRN SHORT OF BREATH/WHEEZING Atorvastatin Calcium 10 mg 10/13/16 22:00 10/14/16 22:15 Lipitor - PO 10 mg HS [facility] Administration Budesonide/Formoterol Fumarate 1 puff 10/13/16 10:00 10/15/16 11:34 Symbicort 160/4.5mcg - IH Not Given BID [facility] Carvedilol 25 mg 10/13/16 10:00 10/15/16 10:12 Coreg - PO 25 mg DAILY [facility] Administration Docusate Sodium 100 mg 10/13/16 22:00 10/14/16 22:15 Colace - PO 100 mg HS [facility] Administration Fentanyl 1 patch 10/12/16 22:30 10/12/16 22:36 Duragesic 25mcg Patch - TD 1 patch Q72H [facility] Administration Ferrous Sulfate 325 mg 10/13/16 10:00 10/15/16 10:17 Feosol - PO 325 mg DAILY [facility] Administration Folic Acid 1 mg 10/13/16 10:00 10/15/16 10:17 Folic Acid - PO 1 mg DAILY [facility] Administration Gabapentin 100 mg 10/13/16 06:00 10/15/16 13:46 Neurontin - PO 100 mg TID [facility] Administration Insulin Aspart 1 vial 10/13/16 07:00 10/15/16 11:37 Novolog Vial Sliding Scale - SQ Not Given ACHS [facility] Protocol Insulin Detemir 30 units 10/13/16 07:00 10/15/16 06:38 Levemir Vial SQ 30 unit AM [facility] Administration Isosorbide Mononitrate 60 mg 10/13/16 10:00 10/15/16 10:12 Imdur - PO 60 mg DAILY [facility] Administration Lactulose 30 gm 10/13/16 10:00 10/15/16 10:23 Cephulac (Oral Use) PO Not Given DAILY [facility] Miscellaneous 1 each 10/12/16 22:41 Duragesic Patch Waste TD PRN PRN Nifedipine 90 mg 10/13/16 10:00 10/15/16 10:12 Procardia Xl - PO 90 mg DAILY [facility] Administration Oxycodone HCl 10 mg 10/12/16 22:18 10/15/16 10:11 Roxicodone - PO 10 mg Q8H PRN Administration PAIN Pantoprazole Sodium 40 mg 10/13/16 10:45 10/15/16 10:12 Protonix - PO 40 mg DAILY [facility] Administration Senna 2 tab 10/13/16 10:00 10/15/16 10:12 Senna - PO 2 tab DAILY [facility] Administration Torsemide 60 mg 10/13/16 10:00 10/15/16 10:12 Demadex - PO 60 mg DAILY [facility] Administration Warfarin Sodium 5 mg 10/14/16 18:00 10/14/16 17:57 Coumadin - PO 5 mg DAILY@1800 [facility] Administration Impression: Anemia- CKD/ chronic disease. Low Fe++ sat compatible with Fe++ deficiency Morbid obesity DM HPL Thrombocytopenia Picture compatible with chronic disease and component of blood loss Etiology of thrombocytopenia- unclear Plan: Screening tests
[2016-10-15] MEDS: WARFARIN NA 5 MG TABLET (UD) PO SCH (18:14)
[2016-10-15] MEDS: DOCUSATE SODIUM 100 MG CAPSULE (FP) PO SCH (21:47)
[2016-10-15] MEDS: ATORVASTATIN CA 10 MG TABLET (FP) PO SCH (21:47)
[2016-10-15] MEDS: fentaNYL 25mcg/hr PATCH.TD72 TD SCH (21:48)
[2016-10-16] MEDS: oxyCODONE HCL 5 MG TABLET PO PRN (06:18)
[2016-10-16] MEDS: GABAPENTIN 100 MG CAPSULE (FP) PO SCH ×3 (06:18→22:00)
[2016-10-16] MEDS: ACETAMINOPHEN 325 MG TABLET (FP) PO PRN (06:19)
[2016-10-16] MEDS: INSULIN DETEMIR 100 UNITS/ML MDV SQ SCH (06:19)
[2016-10-16] MEDS: INSULIN SLIDING SCALE (NOVOLOG) 1 VIAL SQ SCH ×4 (06:22→22:00)
[2016-10-16 08:04] LABS: INR 2.96 (0.82-1.09); PROTHROMBIN TIME (PATIENT) 33.3 SEC (9.98-11.88)
[2016-10-16 08:06] LABS: HEMATOCRIT 24.6 % (34.0-46.6)
[2016-10-16 08:44] LABS: ALK PHOS 43 U/L (45-117); ANION GAP 7 (8-16); BILIRUBIN,TOTAL 0.4 mg/dL (0.2-1.0); CALCIUM 8.5 mg/dL (8.5-10.1); CO2 34 mmol/L (21-32); GLUCOSE,RANDOM 83 mg/dL (74-106); SGOT/AST 8 U/L (15-37); SGPT/ALT 12 U/L (12-78); THYROID STIMULATING HORMONE 2.03 uIU/ml (0.358-3.74); TOT PROT 6.6 g/dl (6.4-8.2)
[2016-10-16 09:29] LABS: BASOPHIL 0.4 % (0-2.0); EOSINOPHIL 3.6 % (0-4.5); MCH 27.1 pg (25.7-33.7); MCHC 31.9 g/dl (32.0-36.0); MEAN CELL VOLUME 84.8 fl (80-96); MEAN PLT VOLUME 8.3 fl (7.5-11.1); NEUTROPHILS 68.7 % (42.8-82.8); PLATELET COUNT 122 K/MM3 (134-434); RDW 16.6 % (11.6-15.6); WHITE BLOOD COUNT 6.7 K/mm3 (4.0-10.0)
--- NOTE | 2016-10-16 10:27 | PN ---
Progress Note (short form) - Note Progress Note: RENAL Pt is awake and alert comfortable denies complaints Last Vital Signs Temp Pulse Resp BP Pulse Ox 98.6 F 57 L 20 151/71 96 10/16/16 06:00 10/16/16 06:00 10/15/16 22:00 10/16/16 06:00 10/15/16 21:00 lungs clear anteriorly cvs s1s2 rr distant abd soft ext no edema neuro a+ox3 Current Medications Generic Name Dose Route Start Last Admin Trade Name Freq PRN Reason Stop Dose Admin Acetaminophen 650 mg 10/12/16 22:18 10/16/16 06:19 Tylenol - PO 650 mg Q6H PRN Administration PAIN Albuterol/Ipratropium 1 amp 10/12/16 22:18 Duoneb - NEB QIDR PRN SHORT OF BREATH/WHEEZING Atorvastatin Calcium 10 mg 10/13/16 22:00 10/15/16 21:47 Lipitor - PO 10 mg HS [facility] Administration Budesonide/Formoterol Fumarate 1 puff 10/13/16 10:00 10/15/16 21:48 Symbicort 160/4.5mcg - IH Not Given BID [facility] Carvedilol 25 mg 10/13/16 10:00 10/15/16 10:12 Coreg - PO 25 mg DAILY [facility] Administration Docusate Sodium 100 mg 10/13/16 22:00 10/15/16 21:47 Colace - PO 100 mg HS [facility] Administration Fentanyl 1 patch 10/12/16 22:30 10/15/16 21:48 Duragesic 25mcg Patch - TD 1 patch Q72H [facility] Administration Ferrous Sulfate 325 mg 10/13/16 10:00 10/15/16 10:17 Feosol - PO 325 mg DAILY [facility] Administration Folic Acid 1 mg 10/13/16 10:00 10/15/16 10:17 Folic Acid - PO 1 mg DAILY [facility] Administration Gabapentin 100 mg 10/13/16 06:00 10/16/16 06:18 Neurontin - PO 100 mg TID [facility] Administration Insulin Aspart 1 vial 10/13/16 07:00 10/16/16 06:22 Novolog Vial Sliding Scale - SQ Not Given ACHS [facility] Protocol Insulin Detemir 30 units 10/13/16 07:00 10/16/16 06:19 Levemir Vial SQ 30 unit AM [facility] Administration Isosorbide Mononitrate 60 mg 10/13/16 10:00 10/15/16 10:12 Imdur - PO 60 mg DAILY [facility] Administration Lactulose 30 gm 10/13/16 10:00 10/15/16 10:23 Cephulac (Oral Use) PO Not Given DAILY [facility] Miscellaneous 1 each 10/12/16 22:41 Duragesic Patch Waste TD PRN PRN Nifedipine 90 mg 10/13/16 10:00 10/15/16 10:12 Procardia Xl - PO 90 mg DAILY [facility] Administration Oxycodone HCl 10 mg 10/12/16 22:18 10/16/16 06:18 Roxicodone - PO 10 mg Q8H PRN Administration PAIN Pantoprazole Sodium 40 mg 10/13/16 10:45 10/15/16 10:12 Protonix - PO 40 mg DAILY [facility] Administration Senna 2 tab 10/13/16 10:00 10/15/16 10:12 Senna - PO 2 tab DAILY [facility] Administration Torsemide 60 mg 10/13/16 10:00 10/15/16 10:12 Demadex - PO 60 mg DAILY [facility] Administration Warfarin Sodium 5 mg 10/14/16 18:00 10/15/16 18:14 Coumadin - PO 5 mg DAILY@1800 [facility] Administration CBC, BMP 10/16/16 07:00 10/16/16 07:00 Impression 1. CKD 2. obesity 3. hyperlipidemia 4. HTN 5. DM 6. CHF 7. CAD 8. anemia 9. a-fib 10. iron deficiency Plan - renal function at baseline- note formulas are not accurate to calculate gfr in a pt this size - cont diuretics - cont iron supplements - recommend weight loss of possible MV
[2016-10-16] MEDS: SENNOSIDES 8.6MG TABLET (FP) PO SCH (10:53)
[2016-10-16] MEDS: FERROUS SO4 325 MG TABLET (FP) PO SCH (10:53)
[2016-10-16] MEDS: LACTULOSE 20 GM/30 ML UDC (FOR ORAL USE ONLY) PO SCH (10:54)
[2016-10-16] MEDS: TORSEMIDE 20 MG TABLET (FP) PO SCH (10:54)
[2016-10-16] MEDS: BUDESONIDE/FORMETEROL FUMARATE 160/4.5 mcg INHALER IH SCH ×2 (10:54→22:35)
[2016-10-16] MEDS: PANTOPRAZOLE 40 MG TABLET (FP) PO SCH (10:54)
[2016-10-16] MEDS: FOLIC ACID 1 MG TABLET (FP) PO SCH (10:54)
[2016-10-16] MEDS: ISOSORBIDE MONONITRATE 60 MG TAB.SR.24H (FP) PO SCH (11:05)
[2016-10-16] MEDS: CARVEDILOL 25 MG TABLET (FP) PO SCH (11:05)
[2016-10-16] MEDS: NIFEdipine E.R. 90 MG TABLET (FP) PO SCH (11:05)
--- NOTE | 2016-10-16 12:53 | PN ---
Progress Note (short form) - Note Progress Note: pt seen/ examined. chart reviewed comfortable. no complains feels ok. Vital Signs Temp 98.7 F 10/16/16 11:07 Pulse 49 L 10/16/16 11:07 Resp 18 10/16/16 11:07 BP 146/59 10/16/16 11:07 Pulse Ox 96 10/15/16 21:00 Intake & Output 10/15/16 10/16/16 10/16/16 23:59 11:59 23:59 Intake Total 240 Balance 240 Intake: Oral 240 Other: Voiding Method Incontinent Incontinent # Unmeasured Voids Void 2 2 Bowel Movement No No Active Medications Acetaminophen (Tylenol -) 650 mg PO Q6H PRN PRN Reason: PAIN Last Admin: 10/16/16 06:19 Dose: 650 mg Albuterol/Ipratropium (Duoneb -) 1 amp NEB QIDR PRN PRN Reason: SHORT OF BREATH/WHEEZING Atorvastatin Calcium (Lipitor -) 10 mg PO HS [facility] Last Admin: 10/15/16 21:47 Dose: 10 mg Budesonide/Formoterol Fumarate (Symbicort 160/4.5mcg -) 1 puff IH BID [facility] Last Admin: 10/16/16 10:54 Dose: Not Given Carvedilol (Coreg -) 25 mg PO DAILY [facility] Last Admin: 10/16/16 11:05 Dose: 25 mg Docusate Sodium (Colace -) 100 mg PO HS [facility] Last Admin: 10/15/16 21:47 Dose: 100 mg Fentanyl (Duragesic 25mcg Patch -) 1 patch TD Q72H [facility] Last Admin: 10/15/16 21:48 Dose: 1 patch Ferrous Sulfate (Feosol -) 325 mg PO DAILY [facility] Last Admin: 10/16/16 10:53 Dose: 325 mg Folic Acid (Folic Acid -) 1 mg PO DAILY [facility] Last Admin: 10/16/16 10:54 Dose: 1 mg Gabapentin (Neurontin -) 100 mg PO TID [facility] Last Admin: 10/16/16 06:18 Dose: 100 mg Insulin Aspart (Novolog Vial Sliding Scale -) 1 vial SQ ACHS [facility] PRN Reason: Protocol Last Admin: 10/16/16 11:05 Dose: Not Given Insulin Detemir (Levemir Vial) 30 units SQ AM [facility] Last Admin: 10/16/16 06:19 Dose: 30 unit Isosorbide Mononitrate (Imdur -) 60 mg PO DAILY [facility] Last Admin: 10/16/16 11:05 Dose: 60 mg Lactulose (Cephulac (Oral Use)) 30 gm PO DAILY [facility] Last Admin: 10/16/16 10:54 Dose: Not Given Miscellaneous (Duragesic Patch Waste) 1 each TD PRN PRN Nifedipine (Procardia Xl -) 90 mg PO DAILY [facility] Last Admin: 10/16/16 11:05 Dose: 90 mg Oxycodone HCl (Roxicodone -) 10 mg PO Q8H PRN PRN Reason: PAIN Last Admin: 10/16/16 06:18 Dose: 10 mg Pantoprazole Sodium (Protonix -) 40 mg PO DAILY [facility] Last Admin: 10/16/16 10:54 Dose: 40 mg Senna (Senna -) 2 tab PO DAILY [facility] Last Admin: 10/16/16 10:53 Dose: 2 tab Torsemide (Demadex -) 60 mg PO DAILY [facility] Last Admin: 10/16/16 10:54 Dose: 60 mg Warfarin Sodium (Coumadin -) 5 mg PO DAILY@1800 [facility] Last Admin: 10/15/16 18:14 Dose: 5 mg CBC, BMP 10/16/16 07:00 10/16/16 07:00 Physical Exam S1 S2 Irregular Lungs --decreased breath sounds at bases Abd- soft, Obese Edema+ a/p stable all f/u noted continue present care transfuse prn- will transfuse today f/u labs sob --ve no sign of active gi bleeding Discussed with pt - pt not interested in any procedure-- egd/ colonoscopy etc-- risks/ benefits discussed cr - better-- baseline sugar under control physical therapy discussed with pt will follow Problem List - Problems (1) Anemia requiring transfusions Code(s): D64.9 - ANEMIA, UNSPECIFIED (2) CKD (chronic kidney disease) stage 5, GFR less than 15 ml/min Code(s): N18.5 - CHRONIC KIDNEY DISEASE, STAGE 5 (3) Diabetes mellitus Code(s): E11.9 - TYPE 2 DIABETES MELLITUS WITHOUT COMPLICATIONS Qualifiers: Chronic kidney disease stage: unspecified stage (4) Afib Code(s): I48.91 - UNSPECIFIED ATRIAL FIBRILLATION Qualifiers: Atrial fibrillation type: persistent Qualified Code(s): I48.1 - Persistent atrial fibrillation (5) Obesity Code(s): E66.9 - OBESITY, UNSPECIFIED
[2016-10-16] MEDS: WARFARIN NA 5 MG TABLET (UD) PO SCH (18:10)
--- NOTE | 2016-10-16 20:04 | PN ---
Progress Note (short form) - Note Progress Note: Patient seen and examined Denies any complaints Last Vital Signs Temp Pulse Resp BP Pulse Ox 99.0 F 55 L 18 141/58 96 10/16/16 18:00 10/16/16 18:00 10/16/16 18:00 10/16/16 18:00 10/16/16 09:00 Cor: RSR, No murmurs, No gallops Lungs: Clear to P&A Abd: Soft, Normal bowel sounds, No organomegaly morbidly obese Abnormal Lab Results 10/12/16 10/14/16 10/16/16 21:00 06:00 07:00 RBC 2.94 L Hgb 8.0 L Hct 24.6 L 25.0 L MCHC 31.9 L RDW 16.6 H Plt Count 122 L INR Carbon Dioxide Anion Gap BUN Creatinine AST Alkaline Phosphatase Albumin Crossmatch See Detail 10/16/16 10/16/16 10/16/16 07:00 07:00 13:28 RBC Hgb Hct MCHC RDW Plt Count INR 2.96 H D Carbon Dioxide 34 H Anion Gap 7 L BUN 108 H* Creatinine 3.0 H AST 8 L Alkaline Phosphatase 43 L Albumin 3.0 L Crossmatch See Detail Active Medications Generic Name Dose Route Start Last Admin Trade Name Freq PRN Reason Stop Dose Admin Acetaminophen 650 mg 10/12/16 22:18 10/16/16 06:19 Tylenol - PO 650 mg Q6H PRN Administration PAIN Albuterol/Ipratropium 1 amp 10/12/16 22:18 Duoneb - NEB QIDR PRN SHORT OF BREATH/WHEEZING Atorvastatin Calcium 10 mg 10/13/16 22:00 10/15/16 21:47 Lipitor - PO 10 mg HS [facility] Administration Budesonide/Formoterol Fumarate 1 puff 10/13/16 10:00 10/16/16 10:54 Symbicort 160/4.5mcg - IH Not Given BID [facility] Carvedilol 25 mg 10/13/16 10:00 10/16/16 11:05 Coreg - PO 25 mg DAILY [facility] Administration Docusate Sodium 100 mg 10/13/16 22:00 10/15/16 21:47 Colace - PO 100 mg HS [facility] Administration Fentanyl 1 patch 10/12/16 22:30 10/15/16 21:48 Duragesic 25mcg Patch - TD 1 patch Q72H [facility] Administration Ferrous Sulfate 325 mg 10/13/16 10:00 10/16/16 10:53 Feosol - PO 325 mg DAILY [facility] Administration Folic Acid 1 mg 10/13/16 10:00 10/16/16 10:54 Folic Acid - PO 1 mg DAILY [facility] Administration Gabapentin 100 mg 10/13/16 06:00 10/16/16 15:13 Neurontin - PO 100 mg TID [facility] Administration Insulin Aspart 1 vial 10/13/16 07:00 10/16/16 18:09 Novolog Vial Sliding Scale - SQ Not Given ACHS [facility] Protocol Insulin Detemir 30 units 10/13/16 07:00 10/16/16 06:19 Levemir Vial SQ 30 unit AM [facility] Administration Isosorbide Mononitrate 60 mg 10/13/16 10:00 10/16/16 11:05 Imdur - PO 60 mg DAILY [facility] Administration Lactulose 30 gm 10/13/16 10:00 10/16/16 10:54 Cephulac (Oral Use) PO Not Given DAILY [facility] Miscellaneous 1 each 10/12/16 22:41 Duragesic Patch Waste TD PRN PRN Nifedipine 90 mg 10/13/16 10:00 10/16/16 11:05 Procardia Xl - PO 90 mg DAILY [facility] Administration Oxycodone HCl 10 mg 10/12/16 22:18 10/16/16 06:18 Roxicodone - PO 10 mg Q8H PRN Administration PAIN Pantoprazole Sodium 40 mg 10/13/16 10:45 10/16/16 10:54 Protonix - PO 40 mg DAILY [facility] Administration Senna 2 tab 10/13/16 10:00 10/16/16 10:53 Senna - PO 2 tab DAILY [facility] Administration Torsemide 60 mg 10/13/16 10:00 10/16/16 10:54 Demadex - PO 60 mg DAILY [facility] Administration Warfarin Sodium 5 mg 10/14/16 18:00 10/16/16 18:10 Coumadin - PO 5 mg DAILY@1800 [facility] Administration A/P 70 y/o patient with morbid obesity, CKD, anemia, COPD anemia of chronic diseas.+/- gi blood loss Ferritin 71 iron sat is low at 11% s/p iv iron 300mg procrit per renal gi w/u --patient unwilling Lt. 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
[2016-10-16] MEDS: DOCUSATE SODIUM 100 MG CAPSULE (FP) PO SCH (21:59)
[2016-10-16] MEDS: ATORVASTATIN CA 10 MG TABLET (FP) PO SCH (22:00)
[2016-10-17] MEDS: oxyCODONE HCL 5 MG TABLET PO PRN ×3 (00:36→22:31)
[2016-10-17] MEDS: ACETAMINOPHEN 325 MG TABLET (FP) PO PRN ×3 (00:39→22:32)
[2016-10-17] MEDS: INSULIN SLIDING SCALE (NOVOLOG) 1 VIAL SQ SCH ×4 (06:03→22:25)
[2016-10-17] MEDS: INSULIN DETEMIR 100 UNITS/ML MDV SQ SCH (06:04)
[2016-10-17] MEDS: GABAPENTIN 100 MG CAPSULE (FP) PO SCH ×3 (06:08→22:25)
[2016-10-17 07:12] LABS: BASOPHIL 0.5 % (0-2.0); EOSINOPHIL 3.2 % (0-4.5); MCH 27.4 pg (25.7-33.7); MCHC 32.4 g/dl (32.0-36.0); MEAN CELL VOLUME 84.6 fl (80-96); MEAN PLT VOLUME 8.3 fl (7.5-11.1); NEUTROPHILS 68.1 % (42.8-82.8); PLATELET COUNT 122 K/MM3 (134-434); RDW 16.4 % (11.6-15.6); WHITE BLOOD COUNT 6.9 K/mm3 (4.0-10.0)
[2016-10-17 07:52] LABS: INR 3.4 (0.82-1.09); PROTHROMBIN TIME (PATIENT) 38.4 SEC (9.98-11.88)
[2016-10-17 07:57] LABS: ANION GAP 6 (8-16); BILIRUBIN,TOTAL 0.4 mg/dL (0.2-1.0); CALCIUM 8.4 mg/dL (8.5-10.1); CO2 38 mmol/L (21-32); CREATININE 2.9 mg/dL (0.55-1.02); GLUCOSE,RANDOM 111 mg/dL (74-106); SGOT/AST 9 U/L (15-37); SGPT/ALT 11 U/L (12-78)
[2016-10-17 07:58] LABS: ALK PHOS 45 U/L (45-117); TOT PROT 6.6 g/dl (6.4-8.2)
--- NOTE | 2016-10-17 10:24 | PN ---
Progress Note (short form) - Note Progress Note: pt seen/ examined. comfortable. no complains except chronic pain issues got 1 unit of prbc yesterday Vital Signs Temp 97.9 F 10/17/16 06:00 Pulse 51 L 10/17/16 06:00 Resp 18 10/17/16 06:00 BP 138/50 10/17/16 06:00 Pulse Ox 96 10/16/16 20:55 Intake & Output 10/16/16 10/16/16 10/17/16 11:59 23:59 11:59 Intake Total 300 Balance 300 Intake: Oral 300 Other: Voiding Method Incontinent Incontinent # Unmeasured Voids Void 2 3 3 Bowel Movement No Yes: large Yes: 1 # Bowel Movements 1 Active Medications Acetaminophen (Tylenol -) 650 mg PO Q6H PRN PRN Reason: PAIN Last Admin: 10/17/16 00:39 Dose: 650 mg Albuterol/Ipratropium (Duoneb -) 1 amp NEB QIDR PRN PRN Reason: SHORT OF BREATH/WHEEZING Atorvastatin Calcium (Lipitor -) 10 mg PO [facility] Last Admin: 10/16/16 22:00 Dose: 10 mg Budesonide/Formoterol Fumarate (Symbicort 160/4.5mcg -) 1 puff IH BID [facility] Last Admin: 10/16/16 22:35 Dose: Not Given Carvedilol (Coreg -) 25 mg PO DAILY [facility] Last Admin: 10/16/16 11:05 Dose: 25 mg Docusate Sodium (Colace -) 100 mg PO HS [facility] Last Admin: 10/16/16 21:59 Dose: 100 mg Fentanyl (Duragesic 25mcg Patch -) 1 patch TD Q72H [facility] Last Admin: 10/15/16 21:48 Dose: 1 patch Ferrous Sulfate (Feosol -) 325 mg PO DAILY [facility] Last Admin: 10/16/16 10:53 Dose: 325 mg Folic Acid (Folic Acid -) 1 mg PO DAILY [facility] Last Admin: 10/16/16 10:54 Dose: 1 mg Gabapentin (Neurontin -) 100 mg PO TID [facility] Last Admin: 10/17/16 06:08 Dose: 100 mg Insulin Aspart (Novolog Vial Sliding Scale -) 1 vial SQ ACHS [facility] PRN Reason: Protocol Last Admin: 10/17/16 06:03 Dose: Not Given Insulin Detemir (Levemir Vial) 30 units SQ AM [facility] Last Admin: 10/17/16 06:04 Dose: 30 unit Isosorbide Mononitrate (Imdur -) 60 mg PO DAILY [facility] Last Admin: 10/16/16 11:05 Dose: 60 mg Lactulose (Cephulac (Oral Use)) 30 gm PO DAILY [facility] Last Admin: 10/16/16 10:54 Dose: Not Given Miscellaneous (Duragesic Patch Waste) 1 each TD PRN PRN Nifedipine (Procardia Xl -) 90 mg PO DAILY [facility] Last Admin: 10/16/16 11:05 Dose: 90 mg Oxycodone HCl (Roxicodone -) 10 mg PO Q8H PRN PRN Reason: PAIN Last Admin: 10/17/16 00:36 Dose: 10 mg Pantoprazole Sodium (Protonix -) 40 mg PO DAILY [facility] Last Admin: 10/16/16 10:54 Dose: 40 mg Senna (Senna -) 2 tab PO DAILY [facility] Last Admin: 10/16/16 10:53 Dose: 2 tab Torsemide (Demadex -) 60 mg PO DAILY [facility] Last Admin: 10/16/16 10:54 Dose: 60 mg Warfarin Sodium (Coumadin -) 5 mg PO DAILY@1800 [facility] Last Admin: 10/16/16 18:10 Dose: 5 mg CBC, BMP 10/17/16 06:15 10/17/16 06:15 INR, PTT INR 3.40 (0.82-1.09) H 10/17/16 06:15 Physical Exam Morbidly obese- lying in bed S1 S2 Irregular Lungs --decreased breath sounds at bases Abd- soft, Obese. Edema+ a/p stable continue present care cr better sugar under control physical therapy hold coumadin today anticipate d/c to half-way tomorrow will follow Problem List - Problems (1) Anemia requiring transfusions Code(s): D64.9 - ANEMIA, UNSPECIFIED (2) CKD (chronic kidney disease) stage 5, GFR less than 15 ml/min Code(s): N18.5 - CHRONIC KIDNEY DISEASE, STAGE 5 (3) Diabetes mellitus Code(s): E11.9 - TYPE 2 DIABETES MELLITUS WITHOUT COMPLICATIONS Qualifiers: Chronic kidney disease stage: unspecified stage (4) Afib Code(s): I48.91 - UNSPECIFIED ATRIAL FIBRILLATION Qualifiers: Atrial fibrillation type: persistent Qualified Code(s): I48.1 - Persistent atrial fibrillation (5) Obesity Code(s): E66.9 - OBESITY, UNSPECIFIED
[2016-10-17] MEDS: TORSEMIDE 20 MG TABLET (FP) PO SCH (10:27)
[2016-10-17] MEDS: SENNOSIDES 8.6MG TABLET (FP) PO SCH (10:28)
[2016-10-17] MEDS: FOLIC ACID 1 MG TABLET (FP) PO SCH (10:28)
[2016-10-17] MEDS: LACTULOSE 20 GM/30 ML UDC (FOR ORAL USE ONLY) PO SCH (10:28)
[2016-10-17] MEDS: FERROUS SO4 325 MG TABLET (FP) PO SCH (10:28)
[2016-10-17] MEDS: PANTOPRAZOLE 40 MG TABLET (FP) PO SCH (10:28)
[2016-10-17] MEDS: ISOSORBIDE MONONITRATE 60 MG TAB.SR.24H (FP) PO SCH (10:33)
[2016-10-17] MEDS: NIFEdipine E.R. 90 MG TABLET (FP) PO SCH (10:33)
[2016-10-17] MEDS: BUDESONIDE/FORMETEROL FUMARATE 160/4.5 mcg INHALER IH SCH ×2 (10:34→22:27)
[2016-10-17] MEDS: CARVEDILOL 25 MG TABLET (FP) PO SCH (10:37)
--- NOTE | 2016-10-17 11:26 | PN ---
Progress Note (short form) - Note Progress Note: RENAL Pt is awake and alert comfortable denies complaints Last Vital Signs Temp Pulse Resp BP Pulse Ox 98.4 F 61 20 154/63 96 10/17/16 10:27 10/17/16 10:27 10/17/16 10:27 10/17/16 10:27 10/16/16 20:55 lungs clear anteriorly cvs s1s2 rr distant abd soft ext no edema neuro a+ox3 CBC, BMP 10/17/16 06:15 10/17/16 06:15 Current Medications Generic Name Dose Route Start Last Admin Trade Name Freq PRN Reason Stop Dose Admin Acetaminophen 650 mg 10/12/16 22:18 10/17/16 10:33 Tylenol - PO 650 mg Q6H PRN Administration PAIN Albuterol/Ipratropium 1 amp 10/12/16 22:18 Duoneb - NEB QIDR PRN SHORT OF BREATH/WHEEZING Atorvastatin Calcium 10 mg 10/13/16 22:00 10/16/16 22:00 Lipitor - PO 10 mg HS [facility] Administration Budesonide/Formoterol Fumarate 1 puff 10/13/16 10:00 10/17/16 10:34 Symbicort 160/4.5mcg - IH 1 puff BID [facility] Administration Carvedilol 25 mg 10/13/16 10:00 10/17/16 10:37 Coreg - PO 25 mg DAILY [facility] Administration Docusate Sodium 100 mg 10/13/16 22:00 10/16/16 21:59 Colace - PO 100 mg HS [facility] Administration Fentanyl 1 patch 10/12/16 22:30 10/15/16 21:48 Duragesic 25mcg Patch - TD 1 patch Q72H [facility] Administration Ferrous Sulfate 325 mg 10/13/16 10:00 10/17/16 10:28 Feosol - PO 325 mg DAILY [facility] Administration Folic Acid 1 mg 10/13/16 10:00 10/17/16 10:28 Folic Acid - PO 1 mg DAILY [facility] Administration Gabapentin 100 mg 10/13/16 06:00 10/17/16 06:08 Neurontin - PO 100 mg TID [facility] Administration Insulin Aspart 1 vial 10/13/16 07:00 10/17/16 06:03 Novolog Vial Sliding Scale - SQ Not Given ACHS [facility] Protocol Insulin Detemir 30 units 10/13/16 07:00 10/17/16 06:04 Levemir Vial SQ 30 unit AM [facility] Administration Isosorbide Mononitrate 60 mg 10/13/16 10:00 10/17/16 10:33 Imdur - PO 60 mg DAILY [facility] Administration Lactulose 30 gm 10/13/16 10:00 10/17/16 10:28 Cephulac (Oral Use) PO Not Given DAILY [facility] Miscellaneous 1 each 10/12/16 22:41 Duragesic Patch Waste TD PRN PRN Nifedipine 90 mg 10/13/16 10:00 10/17/16 10:33 Procardia Xl - PO 90 mg DAILY [facility] Administration Oxycodone HCl 10 mg 10/12/16 22:18 10/17/16 10:32 Roxicodone - PO 10 mg Q8H PRN Administration PAIN Pantoprazole Sodium 40 mg 10/13/16 10:45 10/17/16 10:28 Protonix - PO 40 mg DAILY [facility] Administration Senna 2 tab 10/13/16 10:00 10/17/16 10:28 Senna - PO 2 tab DAILY [facility] Administration Torsemide 60 mg 10/13/16 10:00 10/17/16 10:27 Demadex - PO 60 mg DAILY [facility] Administration Warfarin Sodium 5 mg 10/14/16 18:00 10/16/16 18:10 Coumadin - PO 5 mg DAILY@1800 [facility] Administration Impression 1. CKD 2. obesity 3. hyperlipidemia 4. HTN 5. DM 6. CHF 7. CAD 8. anemia 9. a-fib 10.iron deficiency Plan - renal function at baseline- note formulas are not accurate to calculate gfr in a pt this size - cont diuretics - cont iron supplements - recommend weight loss if possible MV
[2016-10-17] MEDS: DOCUSATE SODIUM 100 MG CAPSULE (FP) PO SCH (22:25)
[2016-10-17] MEDS: ATORVASTATIN CA 10 MG TABLET (FP) PO SCH (22:25)
[2016-10-18] MEDS: GABAPENTIN 100 MG CAPSULE (FP) PO SCH (06:25)
[2016-10-18] MEDS: ACETAMINOPHEN 325 MG TABLET (FP) PO PRN (06:25)
[2016-10-18] MEDS: oxyCODONE HCL 5 MG TABLET PO PRN (06:26)
[2016-10-18] MEDS: INSULIN DETEMIR 100 UNITS/ML MDV SQ SCH (06:28)
[2016-10-18] MEDS: INSULIN SLIDING SCALE (NOVOLOG) 1 VIAL SQ SCH ×2 (06:28→11:34)
[2016-10-18 08:37] LABS: INR 3.09 (0.82-1.09); PROTHROMBIN TIME (PATIENT) 34.8 SEC (9.98-11.88)
[2016-10-18 08:39] LABS: CALCIUM 8.6 mg/dL (8.5-10.1)
[2016-10-18 08:43] LABS: ANION GAP 4 (8-16); CO2 38 mmol/L (21-32); CREATININE 2.9 mg/dL (0.55-1.02); GLUCOSE,RANDOM 99 mg/dL (74-106)
[2016-10-18] MEDS ORDERED: PT OWN MED DRAWER 7, Y5N ONE (10:11)
[2016-10-18 10:34] LABS: MCHC 31.8 g/dl (32.0-36.0); MEAN CELL VOLUME 85.1 fl (80-96); MEAN PLT VOLUME 8.7 fl (7.5-11.1); PLATELET COUNT 125 K/MM3 (134-434); RDW 16.6 % (11.6-15.6); WHITE BLOOD COUNT 6.7 K/mm3 (4.0-10.0)
[2016-10-18] MEDS: NIFEdipine E.R. 90 MG TABLET (FP) PO SCH (10:43)
[2016-10-18] MEDS: TORSEMIDE 20 MG TABLET (FP) PO SCH (10:43)
[2016-10-18] MEDS: PANTOPRAZOLE 40 MG TABLET (FP) PO SCH (10:43)
[2016-10-18] MEDS: CARVEDILOL 25 MG TABLET (FP) PO SCH (10:43)
[2016-10-18] MEDS: LACTULOSE 20 GM/30 ML UDC (FOR ORAL USE ONLY) PO SCH (10:43)
[2016-10-18] MEDS: ISOSORBIDE MONONITRATE 60 MG TAB.SR.24H (FP) PO SCH (10:43)
[2016-10-18] MEDS: FOLIC ACID 1 MG TABLET (FP) PO SCH (10:43)
[2016-10-18] MEDS: FERROUS SO4 325 MG TABLET (FP) PO SCH (10:43)
[2016-10-18] MEDS: BUDESONIDE/FORMETEROL FUMARATE 160/4.5 mcg INHALER IH SCH (10:44)
[2016-10-18] MEDS: SENNOSIDES 8.6MG TABLET (FP) PO SCH ×2 (10:44→10:55)
[2016-10-18 10:54] VITALS: BP 143/63; TEMP 98.3
--- NOTE | 2016-10-18 10:56 | DS ---
Physical Examination Vital Signs: Vital Signs Temperature 97.9 F 10/18/16 05:56 Pulse Rate 55 L 10/18/16 05:56 Respiratory Rate 20 10/18/16 05:56 Blood Pressure 151/58 10/18/16 05:56 O2 Sat by Pulse Oximetry (%) 96 10/18/16 00:56 Findings/Remarks: comfortable no complains feels ok Constitutional: Yes: No Distress, Calm Eyes: Yes: Conjunctiva Clear Cardiovascular: Yes: Regular Rate and Rhythm Respiratory: Yes: CTA Bilaterally Gastrointestinal: Yes: Soft, Abdomen, Obese Edema: LLE: 1+, RLE: 1+ Neurological: Yes: Alert Labs: CBC, BMP 10/18/16 09:20 10/18/16 06:30 Discharge Summary Reason For Visit: ANEMIA Current Active Problems Anemia requiring transfusions (Acute) CKD (chronic kidney disease) stage 5, GFR less than 15 ml/min (Acute) Diabetes mellitus (Acute) Hospital Course: The patient is a 70 year old female with a significant past medical history of hypertension, hyperlipidemia, DM, CHF, CAD, atrial fibrillation, asthma, chronic anemia and obesity, who presents to the emergency department for a blood transfusion secondary to abnormal blood work. pt got transfusions as well as i/v iron Hematology followed for anemia pt refusing any gi work pt also noted to have LEFT AXILLARY LN-- MAMMOGRAM/ U/S / FURTHER WORK UP OUT PT PER HEMATOLOGY/ ONCOLOGY Renal also followed-- Pt changed renal-- From Dr. Mccullough to Dr. Danuta Johnson--Dr. Lee covered pt to follow with renal/ hematology as out pt monitor inr discussed with pt / agree with plan. Discussed with senior case manager and also with nursing staff. meds reconcilled time spend- 40 min in examining/ documenting and coordinating care. Condition: Improved - Instructions Referrals: Diana Whitmore MD [Primary Care Provider] - Disposition: HALF-WAY FACILITY - Home Medications Comprehensive Discharge Medication List: Ambulatory Orders Atorvastatin Ca [Lipitor] 10 mg PO HS 05/12/16 Budesonide/Formeterol Fumarate [SYMBICORT 160/4.5mcg -] 1 inh PO BID 05/12/16 Carvedilol [Coreg] 25 mg PO DAILY 05/12/16 Ferrous Sulfate 325 mg PO DAILY 05/12/16 Folic Acid 1 mg PO DAILY 05/12/16 Guaifenesin [Mucinex] 600 mg PO DAILY 05/12/16 Insulin (Levemir) [Levemir Flexpen -] 30 units SQ AM 05/12/16 Isosorbide Mononitrate [Imdur] 60 mg PO DAILY 05/12/16 Lactulose 30 gm PO DAILY 05/12/16 Oxycodone HCl 10 mg PO TID PRN 05/12/16 Ranitidine [Zantac -] 150 mg PO DAILY 05/12/16 Gabapentin 100 mg PO TID 06/15/16 Acetaminophen [Tylenol .Regular Strength -] 650 mg PO Q6H PRN #0 tablet Nifedipine [Procardia Xl] 90 mg PO DAILY #30 tab.er.24 06/18/16 Insulin Sliding Scale [Novolog Vial Sliding Scale -] 1 vial SQ ACHS units 09/13 Sennosides [Senna -] 2 tab PO DAILY tablet 09/13/16 Albuterol 2.5/Ipratropium 0.5 [Duoneb -] 1 amp NEB QIDR PRN 10/12/16 Epoetin [place] [Procrit -] 10,000 unit SQ ASDIR MDD 3 x WEEKLY HOLD FOR HGB >10 Fentanyl Patch Waste [Duragesic Patch Waste] 1 each TD PRN PRN #0 each MDD 1 01/25 Pantoprazole Sodium [Protonix -] 40 mg PO DAILY #30 tab 10/18/16 Torsemide [Demadex -] 60 mg PO DAILY tablet 10/18/16 Warfarin Na [Coumadin -] 4 mg PO DAILY@1800 #10 tablet 10/18/16
[2016-10-18 11:23] VITALS: PULSE 61
--- NOTE | 2016-10-18 13:27 | PN ---
Physical Exam: SUBJECTIVE: Patient seen and examined at bedside. No overnight events. No new complaints. Breathing is at baseline. Feels well to go. Denies CP, MORALES, palpitations, abd. pain. N/V. OBJECTIVE: Vital Signs Period Temp Pulse Resp BP Sys/Contreras Pulse Ox Last 24 Hr 97.9 F-98.8 F 55-61 19-20 142-151/58-70 95-96 GENERAL: AAOx3 NAD HEAD: NC/AT EYES: PERRL, EOMI, ENT: moist mucous membranes. NECK: supple, thick neck LUNGS:Decreased breath sounds bilat. No wheezing HEART: RRR, S1S2 ABDOMEN: Soft,morbidly obese, non tender, BS(+) EXTREMITIES: 2+ pulses, warm, well-perfused, 4+ LE edema NEUROLOGICAL: awake and alert. Laboratory Results - last 24 hr 10/17/16 10/17/16 10/17/16 17:18 21:21 21:24 WBC RBC Hgb Hct MCV MCH MCHC RDW Plt Count MPV INR Sodium Potassium Chloride Carbon Dioxide Anion Gap BUN Creatinine POC Glucometer 119 153 159 Random Glucose Calcium 10/18/16 10/18/16 10/18/16 06:27 06:30 06:30 WBC RBC Hgb Hct MCV MCH MCHC RDW Plt Count MPV INR 3.09 H Sodium 145 Potassium 4.5 Chloride 103 Carbon Dioxide 38 H Anion Gap 4 L BUN 103 H Creatinine 2.9 H POC Glucometer 119 Random Glucose 99 Calcium 8.6 10/18/16 10/18/16 09:20 11:33 WBC 6.7 RBC 3.24 L Hgb 8.8 L Hct 27.6 L MCV 85.1 MCH 27.0 MCHC 31.8 L RDW 16.6 H Plt Count 125 L MPV 8.7 INR Sodium Potassium Chloride Carbon Dioxide Anion Gap BUN Creatinine POC Glucometer 135 Random Glucose Calcium ASSESSMENT/PLAN: 70 year old female with a significant past medical history of hypertension, hyperlipidemia,CKD, morbid obesity, DM, CHF, CAD, atrial fibrillation, asthma , chronic anemia who presents to the emergency department for a blood transfusion secondary to abnormal blood work. Problem List - Problems (1) CKD (chronic kidney disease) stage 5, GFR less than 15 ml/min Assessment/Plan: * BUN improved * Cr. is at baseline. * On EPO * Discussed with her the possibility of needing dialysis and fistula placement. * Will follow with Dr. Navarro as outpatient. (2) Anemia requiring transfusions Assessment/Plan: * Iron studies pending. * Currently on Iron supplement drip * Has been transfused 2units with appropriate response * repeat H/H (3) Afib Assessment/Plan: * Carvedilol (Coreg -) 25 mg PO DAILY * Warfarin Sodium (Coumadin -) 5 mg PO DAILY@1800 [facility] (4) CHF (congestive heart failure) Assessment/Plan: * Atorvastatin Calcium (Lipitor -) 10 mg PO HS * Carvedilol (Coreg -) 25 mg PO DAILY [facility] * Torsemide (Demadex -) 60 mg PO DAILY [facility] (5) COPD (chronic obstructive pulmonary disease) Assessment/Plan: * Albuterol/Ipratropium (Duoneb -) 1 amp NEB QIDR PRN * Budesonide/Formoterol Fumarate (Symbicort 160/4.5mcg -) 1 puff IH BID (6) Diabetes mellitus Assessment/Plan: * Insulin Aspart (Novolog Vial Sliding Scale -) 1 vial SQ ACHS [facility] * Insulin Detemir (Levemir Vial) 30 units SQ AM [facility] Visit type - Emergency Visit Emergency Visit: Yes ED Registration Date: 10/12/16 Care time: The patient presented to the Emergency Department on the above date and was hospitalized for further evaluation of their emergent condition. - New Patient This patient is new to me today: No - Critical Care Critical Care patient: No - Discharge Referral Referred to [facility] Med [facility] No
--- NOTE | 2016-10-18 13:41 | PN ---
Teaching Attending Note Name of Resident: Fan Herron (Nephrology) ATTENDING PHYSICIAN STATEMENT I saw and evaluated the patient. I reviewed the resident's note and discussed the case with the resident. I agree with the resident's findings and plan as documented. Laboratory Tests 10/18/16 06:30 BUN 103 H Creatinine 2.9 H cardio s1s2 pulm distant Gi obese ext edema neuro awake and alert Impression 1. CKD 2. obesity 3. hyperlipidemia 4. HTN 5. DM 6. CHF 7. CAD 8. anemia 9. a-fib 10. iron deficiency Plan - pt will follow with Dr Xiao as outpt - renal function is stable - cont with diuretiics - cont iron supplements - recommend weight loss of possible
[2016-10-19 00:06] LABS: A/G RATIO 0.9 (0.7-1.7); ALPHA-1-GLOBULIN 0.3 g/dL (0.0-0.4); BETA GLOBULIN 0.8 g/dL (0.7-1.3); GAMMA GLOBULIN 1.6 g/dL (0.4-1.8); GLOBULIN, TOTAL 3.5 g/dL (2.2-3.9); M-SPIKE Not Observed g/dL (Not Observed); TOTAL PROTEIN 6.5 g/dL (6.0-8.5)
[2016-10-22 00:08] LABS: HGB VARIANT- 5.3 % (0.0); Hgb A2 2.1 % (0.7-3.1)
== END 2016-10-18 13:20 | DRG 812 ==
LOC: JER 19:32 → JERBED 21:18 → J7W 23:19
PROVIDERS: ADMIT Internal Medicine; ATTEND Internal Medicine
PROC: 30233N1 Transfusion of Nonautologous Red Blood Cells into Peripheral Vein, Percutaneous Approach (ICD-10-PCS; principal; 2016-10-13)
DX: D50.9 Iron deficiency anemia, unspecified (principal); Z68.44 Body mass index [BMI] 60.0-69.9, adult; I13.2 Hypertensive heart and chronic kidney disease with heart failure and with stage 5 chronic kidney disease, or end stage renal disease; N18.5 Chronic kidney disease, stage 5; I48.1 Persistent atrial fibrillation; E78.5 Hyperlipidemia, unspecified; I25.10 Atherosclerotic heart disease of native coronary artery without angina pectoris; J45.909 Unspecified asthma, uncomplicated; Z79.4 Long term (current) use of insulin; I50.9 Heart failure, unspecified; M25.512 Pain in left shoulder; E66.01 Morbid (severe) obesity due to excess calories; E11.22 Type 2 diabetes mellitus with diabetic chronic kidney disease; J44.9 Chronic obstructive pulmonary disease, unspecified; D69.6 Thrombocytopenia, unspecified
CPT/HCPCS: 36415; 36430; 71010-TC; 80048; 80053; 81003; 81015; 82272; 82550; 82607; 82728; 82747; 82784; 83021; 83540; 83550; 83735; 84155; 84165; 84439; 84443; 84484; 85014; 85025; 85027; 85044; 85610; 85660; 86038; 86334; 86850; 86900; 86901; 86922; 87040; 87086; 93005; 93010; 99283-25; J1756; P9038; P9058

== ENCOUNTER 2017-01-11 11:09 | Day surgery (SDC) | payer OTHER ==
[2017-01-11 12:14] LABS: MCH 26.2 pg (25.7-33.7); MCHC 31.6 g/dl (32.0-36.0); MEAN CELL VOLUME 82.8 fl (80-96); MEAN PLT VOLUME 7.9 fl (7.5-11.1); PLATELET COUNT 170 K/MM3 (134-434); RDW 16.5 % (11.6-15.6); WHITE BLOOD COUNT 8.7 K/mm3 (4.0-10.0)
[2017-01-11 12:28] LABS: ANION GAP 5 (8-16); CALCIUM 8.3 mg/dL (8.5-10.1); CO2 32 mmol/L (21-32); CREATININE 3.1 mg/dL (0.55-1.02); GLUCOSE,RANDOM 159 mg/dL (74-106)
[2017-01-11 12:56] LABS: PLATELET ESTIMATE ADEQUATE (NORMAL)
[2017-01-11 12:57] LABS: ANISOCYTOSIS 2+; HYPOCHROMIA 2+; MICROCYTOSIS 2+
[2017-01-11] MEDS ORDERED: FUROSEMIDE 40 MG/4 ML INJECTABLE VIAL IVPB SCH (13:01)
[2017-01-11 14:30] VITALS: BMI 63.8
[2017-01-11] MEDS ORDERED: FUROSEMIDE 40 MG/4 ML INJECTABLE VIAL ONE (18:50)
[2017-01-11] MEDS ORDERED: ALBUTEROL SO4 2.5/IPRATROPIUM 0.5 INH SOL 3 ML VIAL.NEB. NEB PRN (23:34)
[2017-01-11] MEDS ORDERED: oxyCODONE HCL 5 MG TABLET PO PRN (23:34)
[2017-01-12] MEDS ORDERED: GABAPENTIN 100 MG CAPSULE (FP) PO SCH (06:00)
[2017-01-12] MEDS: INSULIN SLIDING SCALE (NOVOLOG) 1 VIAL SQ SCH ×2 (06:55→11:51)
[2017-01-12] MEDS: INSULIN DETEMIR 100 UNITS/ML MDV SQ SCH ×2 (06:55→07:53)
[2017-01-12 07:12] LABS: MCH 26.8 pg (25.7-33.7); MCHC 32.4 g/dl (32.0-36.0); MEAN CELL VOLUME 82.6 fl (80-96); MEAN PLT VOLUME 7.9 fl (7.5-11.1); PLATELET COUNT 164 K/MM3 (134-434); RDW 16.6 % (11.6-15.6); WHITE BLOOD COUNT 8.2 K/mm3 (4.0-10.0)
[2017-01-12 07:40] LABS: ALBUMIN 2.5 g/dl (3.4-5.0); ANION GAP 5 (8-16); BILIRUBIN,TOTAL 0.4 mg/dL (0.2-1.0); CALCIUM 8.6 mg/dL (8.5-10.1); CO2 23 mmol/L (21-32); CREATININE 1.3 mg/dL (0.55-1.02); GLUCOSE,RANDOM 105 mg/dL (74-106); SGOT/AST 41 U/L (15-37); SGPT/ALT 30 U/L (12-78); TOT PROT 6.1 g/dl (6.4-8.2)
[2017-01-12 07:41] LABS: ALK PHOS 68 U/L (45-117)
[2017-01-12] MEDS ORDERED: PT OWN MED DRAWER 7, Y5N ONE (09:10)
--- NOTE | 2017-01-12 09:42 | HP ---
[facility] - Chief Complaint Chief Complaint: admitted for anemia- transfusion History Source: Patient Limitations to Obtaining History: No Limitations - Past Medical History Allergies/Adverse Reactions: Allergies Allergy/AdvReac Type Severity Reaction Status Date / Time No Known Allergies Allergy Verified 10/12/16 19:50 Cardiovascular: Yes: AFIB (anticoagulants for 5 yrs , on coumadin), CHF, HTN, Hyperlipdemia. No: CAD Pulmonary: Yes: Asthma, COPD Gastrointestinal: Yes: Constipation, GERD, Hemorrhoids, Other (does not remember about colonscopy ) Renal/: Yes: Renal Inusuff, UTI (h/o recurrent uti) Heme/Onc: Yes: Anemia (history of chronic anemia, on intermittent transfusions and also on Procrit at [place]), Other. No: B12 Deficiency, Bleeding Disorder, Cancer, Current Chemotherapy, Current Radiation Therapy, Hemochromatosis, Hypercoaguable State, Myeloproliferative Synd, Sickle Cell Disease, Sickle Cell Trait, Thrombocytopenia Musculoskeletal: Yes: Osteoarthritis Endocrine: Yes: Diabetes Mellitus (IDDM since age 40 yrs ), Other (morbid obesity ) Additional Medical History: morbid obesity - Current Medications Current Medications: Home Medications Medication Instructions Recorded Atorvastatin Ca [Lipitor] 10 mg PO HS 05/12/16 Budesonide/Formeterol Fumarate 1 inh PO BID 05/12/16 [SYMBICORT 160/4.5mcg -] Carvedilol [Coreg] 25 mg PO DAILY 05/12/16 Ferrous Sulfate 325 mg PO DAILY 05/12/16 Folic Acid 1 mg PO DAILY 05/12/16 Guaifenesin [Mucinex] 600 mg PO DAILY 05/12/16 Insulin (Levemir) [Levemir Flexpen 30 units SQ AM 05/12/16 -] Isosorbide Mononitrate [Imdur] 60 mg PO DAILY 05/12/16 Lactulose 30 gm PO DAILY 05/12/16 Oxycodone HCl 10 mg PO TID PRN 05/12/16 Ranitidine [Zantac -] 150 mg PO DAILY 05/12/16 Gabapentin 100 mg PO TID 06/15/16 Acetaminophen [Tylenol .Regular 650 mg PO Q6H PRN #0 tablet 06/18/16 Strength -] Nifedipine [Procardia Xl] 90 mg PO DAILY #30 tab.er.24 06/18/16 Insulin Sliding Scale [Novolog 1 vial SQ ACHS units 09/13/16 Vial Sliding Scale -] Sennosides [Senna -] 2 tab PO DAILY tablet 09/13/16 Albuterol 2.5/Ipratropium 0.5 1 amp NEB QIDR PRN 10/12/16 [Duoneb -] Epoetin [place] [Procrit -] 10,000 unit SQ ASDIR MDD 3 x 10/13/16 WEEKLY HOLD FOR HGB >10 Fentanyl Patch Waste [Duragesic 1 each TD PRN PRN #0 each MDD 1 10/18/16 Patch Waste] Pantoprazole Sodium [Protonix -] 40 mg PO DAILY #30 tab 10/18/16 Torsemide [Demadex -] 60 mg PO DAILY tablet 10/18/16 Warfarin Na [Coumadin -] 4 mg PO DAILY@1800 #10 tablet 10/18/16 Satellite Physical Exam - Physical Examination Vital Signs: Vital Signs Period Temp Pulse Resp BP Sys/Contreras Pulse Ox Last 24 Hr 98.2 F-98.5 F 54-65 20-22 143-169/61-91 100-100 General Appearance: Well Nourished, Well Developed, Alert & Oriented x3 Lung: Clear to auscultation Heart: Other (irregular S1 S2) Abdomen: No tenderness, Normal bowel sounds Extremities: Other (edema+) Neurological: Alert, Oriented Satellite Impression/Plan - Impression/Plan Impression: Anemia of chronic disease. CKD- 4. Obesity. HTN Operative Procedure: S/p 2 units of PRBC. Hb improved and at baseline. she will continue to get Procrit injections at [place]
--- NOTE | 2017-01-12 09:42 | DS ---
Physical Examination Vital Signs: Vital Signs Temperature 98.2 F 01/12/17 05:56 Pulse Rate 54 L 01/12/17 05:56 Respiratory Rate 22 01/12/17 05:56 Blood Pressure 169/91 01/12/17 05:56 O2 Sat by Pulse Oximetry (%) 100 01/11/17 21:00 Constitutional: Yes: No Distress, Calm Cardiovascular: Yes: Pulse Irregular Respiratory: Yes: CTA Bilaterally Gastrointestinal: Yes: Normal Bowel Sounds, Soft, Abdomen, Obese. No: Distention, Tenderness Edema: Yes Edema: LLE: 2+, RLE: 2+ Labs: CBC, BMP 01/12/17 06:00 01/12/17 06:00 Discharge Summary Reason For Visit: CHRONIC ANEMIA Hospital Course: Here for transfusion- received 2 units of PRBC pt better stable for dc to [facility] continue with procrit injections Condition: Improved - Instructions Disposition: [facility] - Home Medications Comprehensive Discharge Medication List: Ambulatory Orders Atorvastatin Ca [Lipitor] 10 mg PO HS 05/12/16 Budesonide/Formeterol Fumarate [SYMBICORT 160/4.5mcg -] 1 inh PO BID 05/12/16 Carvedilol [Coreg] 25 mg PO DAILY 05/12/16 Ferrous Sulfate 325 mg PO DAILY 05/12/16 Folic Acid 1 mg PO DAILY 05/12/16 Guaifenesin [Mucinex] 600 mg PO DAILY 05/12/16 Insulin (Levemir) [Levemir Flexpen -] 30 units SQ AM 05/12/16 Isosorbide Mononitrate [Imdur] 60 mg PO DAILY 05/12/16 Lactulose 30 gm PO DAILY 05/12/16 Oxycodone HCl 10 mg PO TID PRN 05/12/16 Ranitidine [Zantac -] 150 mg PO DAILY 05/12/16 Gabapentin 100 mg PO TID 06/15/16 Acetaminophen [Tylenol .Regular Strength -] 650 mg PO Q6H PRN #0 tablet Nifedipine [Procardia Xl] 90 mg PO DAILY #30 tab.er.24 06/18/16 Insulin Sliding Scale [Novolog Vial Sliding Scale -] 1 vial SQ ACHS units 09/13 Sennosides [Senna -] 2 tab PO DAILY tablet 09/13/16 Albuterol 2.5/Ipratropium 0.5 [Duoneb -] 1 amp NEB QIDR PRN 10/12/16 Epoetin [place] [Procrit -] 10,000 unit SQ ASDIR MDD 3 x WEEKLY HOLD FOR HGB >10 Fentanyl Patch Waste [Duragesic Patch Waste] 1 each TD PRN PRN #0 each MDD 1 01/25 Pantoprazole Sodium [Protonix -] 40 mg PO DAILY #30 tab 10/18/16 Torsemide [Demadex -] 60 mg PO DAILY tablet 10/18/16 Warfarin Na [Coumadin -] 4 mg PO DAILY@1800 #10 tablet 10/18/16
[2017-01-12] MEDS ORDERED: TORSEMIDE 20 MG TABLET (FP) PO SCH (10:00)
[2017-01-12] MEDS ORDERED: BUDESONIDE/FORMETEROL FUMARATE 160/4.5 mcg INHALER IH SCH (10:00)
[2017-01-12] MEDS ORDERED: CARVEDILOL 25 MG TABLET (FP) PO SCH (10:00)
[2017-01-12] MEDS ORDERED: IRON POLYSACCHARIDES 150 MG CAPSULE PO SCH (10:00)
[2017-01-12] MEDS ORDERED: RANITIDINE HCL 150 MG TABLET (FP) PO SCH (10:00)
[2017-01-12] MEDS ORDERED: guaiFENesin 600 MG TABLET.ER (FP) PO SCH (10:00)
[2017-01-12] MEDS ORDERED: ISOSORBIDE MONONITRATE 60 MG TAB.SR.24H (FP) PO SCH (10:00)
[2017-01-12] MEDS ORDERED: NIFEdipine E.R. 90 MG TABLET (FP) PO SCH (10:00)
[2017-01-12] MEDS ORDERED: ERGOCALCIFEROL (VITAMIN D2) 50,000 UNIT CAPSULE (FP) PO SCH (10:00)
[2017-01-12] MEDS ORDERED: FOLIC ACID 1 MG TABLET (FP) PO SCH (10:00)
[2017-01-12] MEDS ORDERED: PANTOPRAZOLE 40 MG TABLET (FP) PO SCH (10:00)
[2017-01-12 11:34] VITALS: BP 142/81; PULSE 61; TEMP 97.7
[2017-01-12 12:59] LABS: INR 2.59 (0.82-1.09); PROTHROMBIN TIME (PATIENT) 29.1 SEC (9.98-11.88)
[2017-01-12] MEDS ORDERED: ATORVASTATIN CA 10 MG TABLET (FP) PO SCH (22:00)
[2017-01-12] MEDS ORDERED: DOCUSATE SODIUM 100 MG CAPSULE (FP) PO SCH (22:00)
== END 2017-01-12 12:27 ==
LOC: JBLOOD 11:09 → J7W 11:10 → JBLOOD 01-12 12:27
PROVIDERS: ATTEND Internal Medicine
PROC: 30233N1 Transfusion of Nonautologous Red Blood Cells into Peripheral Vein, Percutaneous Approach (ICD-10-PCS; principal; 2017-01-11)
DX: D64.9 Anemia, unspecified (principal); I48.91 Unspecified atrial fibrillation; Z79.01 Long term (current) use of anticoagulants; I50.9 Heart failure, unspecified; I10 Essential (primary) hypertension
CPT/HCPCS: 36415; 36430; 80048; 80053; 85027; 85610; 86850; 86900; 86901; 86922; P9038; P9058

== ENCOUNTER 2017-06-22 14:08 | Inpatient (IN) | payer OTHER ==
--- NOTE | 2017-06-22 14:38 | PDOC ---
History of Present Illness - General Chief Complaint: Blood Transfusion Stated Complaint: BLOOD TRANSFUSION Time Seen by Provider: 06/22/17 14:37 History Source: Patient Exam Limitations: No Limitations - History of Present Illness Initial Comments: 06/22/17 15:05 71 year old female with pmh of HTNB, HLD, DM , CHF, arthritis , copd, multiple transfusion. who was sent to the hospital today due to low Hemoglobin 6.2. she report she feel sleepy , fatigue and out of energy. She denies palpitation chest pain, sob. she denies any blood in stool or urine,last colonoscopy 5 years ago. pt did nor why sh need multiple transfusion. pt is bed pounded and has an aide to help her at home. she has multiple transfusion and she develop her symptoms every time her blood count is dropping. denies any fever, chills, N /V/D. she has been constipated and using Miralax. she denies any urinary symptoms. she reports chronic leg swelling pt reports left shoulder pain, and has been diagnosed with gout. 06/22/17 15:25 06/22/17 16:08 Past History - Past Medical History Allergies/Adverse Reactions: Allergies Allergy/AdvReac Type Severity Reaction Status Date / Time No Known Allergies Allergy Verified 06/22/17 14:22 Anemia: Yes Asthma: Yes Cancer: No Cardiac Disorders: Yes (atrial fibrilation, CHF) CVA: No COPD: Yes CHF: Yes Dementia: No Diabetes: Yes GI Disorders: Yes (GERD) Disorders: Yes (UTI) HTN: Yes Hypercholesterolemia: Yes Liver Disease: No Seizures: No Thyroid Disease: No - Surgical History Abdominal Surgery: No Appendectomy: No Cardiac Surgery: No Cholecystectomy: No Lung Surgery: No Neurologic Surgery: No Orthopedic Surgery: Yes (L. Ankle sx, L.leg) - Immunization History Immunization Up to Date: Yes - Suicide/Smoking/Psychosocial Hx Smoking Status: No Smoking History: Never smoked Have you smoked in the past 12 months: No Number of Cigarettes Smoked Daily: 0 Hx Alcohol Use: No Drug/Substance Use Hx: No Substance Use Type: None Hx Substance Use Treatment: No *Physical Exam - Vital Signs Last Vital Signs Temp Pulse Resp BP Pulse Ox 98.0 F 70 18 143/56 99 06/22/17 14:19 06/22/17 14:19 06/22/17 14:19 06/22/17 14:19 06/22/17 14:19 06/22/17 15:11 Head: NC/AT Neck: supple , Lungs CTA B/L Heart . RRR. Noirmal S1, S2, no MRG Abdomen: obese, soft, non distended, non tender. Legs: + 2 edema Neuro: no focal deficit, normal speech. gait not observed. Skin : warm and dry with morbid obesity. left ankle scar, left scar in left 06/22/17 15:41 ED Treatment Course - LABORATORY CBC & Chemistry Diagram: 06/22/17 15:30 06/22/17 16:57 Comment: reticulocyte count elevated 3.4 - ADDITIONAL ORDERS Additional order review: 06/22/17 16:10 EKG: Sinus bird, veny rate 57, RR 200 mls, QRS 92, QTC 420.(my reading ) 06/22/17 18:17 type and screen coag study 2 lrge pores 2 units PRBCS, consider to consult GI Medical Decision Making - Medical Decision Making 06/22/17 16:49 cbc, cmp with Hgb 6.0 trop reticulocyte count LDH *DC/Admit/Observation/Transfer Diagnosis at time of Disposition: Severe anemia - Referrals Referrals: Diana Whitmore MD [Primary Care Provider] - - Patient Instructions - Post Discharge Activity
[2017-06-22 15:54] LABS: BASO % 0.6 % (0-2.0); EOS % 2.3 % (0-4.5); LYMPH % 19.3 % (8-40); MCHC 30.9 g/dl (32.0-36.0); MEAN CELL VOLUME 80.7 fl (80-96); MEAN PLT VOLUME 7.7 fl (7.5-11.1); MONO % 7.2 % (3.8-10.2); NEUT % 70.6 % (42.8-82.8); PLATELET COUNT 180 K/MM3 (134-434); RBC 2.36 M/mm3 (3.60-5.2); RDW 18.8 % (11.6-15.6)
[2017-06-22 15:58] LABS: HEMOGLOBIN 5.9 GM/dL (10.7-15.3)
[2017-06-22 17:02] LABS: INR 2.96 (0.82-1.09); PROTHROMBIN TIME (PATIENT) 33.5 SEC (9.98-11.88)
[2017-06-22 17:04] LABS: ACTIVATED PTT 41.8 SECONDS (26.9-34.4)
--- NOTE | 2017-06-22 17:09 | PDOC ---
Attending Attestation - Resident Resident Name: Arturo Santos - ED Attending Attestation I have performed the following: I have examined & evaluated the patient, The case was reviewed & discussed with the resident, I agree w/resident's findings & plan, Exceptions are as noted - HPI HPI: 06/22/17 17:22 "The patient is a 71 year old female brought via EMS from [facility], with a significant past medical history of HTN, HLD, DM, GOUT, GERD, UTI, Chronic lower extremity edema, CHF, arthritis, AFIB, COPD and anemia with multiple blood transfusion, who presents to the emergency department with anemia and possibly needing a blood transfusion. The patient currently has a hemoglobin count of 6.2 and notes that she feels fatigue. She denies any blood in stool or urine. On presentation the patient is bed bound and currently has an aide to assist her. She reports some mild constipation for which she has been taking Miralax. she has been constipated and using Miralax. she denies any urinary symptoms. The patient denies chest pain, shortness of breath, headache and dizziness. Denies fever, chills, nausea, vomit, diarrhea and constipation. Denies dysuria, frequency, urgency and hematuria. Allergies: None Past surgical history: Left leg and left ankle surgery Social history: No alcohol, tobacco or drug use reported " - Physicial Exam PE: 06/22/17 17:03 "GENERAL: Awake, alert, and fully oriented, in no acute distress HEAD: No signs of trauma EYES: PERRLA, EOMI, sclera anicteric, conjunctiva clear ENT: Auricles normal inspection, hearing grossly normal, nares patent, oropharynx clear without exudates. Moist mucosa NECK: Nontender, no stepoffs, Normal ROM, supple, no lymphadenopathy, JVD, or masses LUNGS: Breath sounds equal, clear to auscultation bilaterally. No wheezes, and no crackles HEART: Regular rate and rhythm, normal S1 and S2, no murmurs, rubs or gallops ABDOMEN: Soft, nontender, normoactive bowel sounds. No guarding, no rebound. No masses EXTREMITIES: Normal range of motion, no edema. No clubbing or cyanosis. No cords, erythema, or tenderness NEUROLOGICAL: Cranial nerves II through XII intact. 5/5 strength and sensation in all extremities, Normal speech, normal gait, normal cerebellar function SKIN: Warm, Dry, normal turgor, no rashes or lesions noted. - Medical Decision Making 06/22/17 17:05 71 F sent in by PMD for anemia requiring blood transfusion. Etiology of anemia unclear. Previous work ups were negative for GI bleed. Last admission was evaluated by heme and was diagnosed with anemia of chronic inflammation. Pt HD stable in ED today with complaints of weakness and fatigue, likely symptomatic anemia. - Labs, T&S, coags, LDH, reticulocyte count - Transfuse PRBC - Admit
[2017-06-22 18:04] LABS: ALBUMIN 2.7 g/dl (3.4-5.0); ALK PHOS 52 U/L (45-117); ANION GAP 8 (8-16); BILIRUBIN,TOTAL 0.1 mg/dL (0.2-1.0); CALCIUM 7.6 mg/dL (8.5-10.1); CHLORIDE 108 mmol/L (98-107); CO2 25 mmol/L (21-32); CREATININE 3.7 mg/dL (0.55-1.02); GLUCOSE,RANDOM 219 mg/dL (74-106); POTASSIUM 5.8 mmol/L (3.5-5.1); SGPT/ALT 9 U/L (12-78); SODIUM 141 mmol/L (136-145); TOT PROT 6.4 g/dl (6.4-8.2)
[2017-06-22 18:34] LABS: SGOT/AST 4 U/L (15-37)
[2017-06-22 18:35] LABS: BLOOD UREA NITROGEN 123 mg/dL (7-18)
[2017-06-22] MEDS ORDERED: ACETAMINOPHEN 1000 MG/100 ML VIAL (NON FORMULARY) IVPB ONE (18:50)
[2017-06-22] MEDS ORDERED: ACETAMINOPHEN INJECTION 100 ML IVPB ONE (18:59)
[2017-06-22] MEDS ORDERED: SODIUM CHLORIDE 0.9% 500 ML INFUS.BAG IV ONE (19:15)
[2017-06-22] MEDS ORDERED: FUROSEMIDE 40 MG/4 ML INJECTABLE VIAL IVPUSH ONE (19:40)
--- NOTE | 2017-06-22 20:53 | HP ---
CHIEF COMPLAINT: tired PCP: Myranda HISTORY OF PRESENT ILLNESS: This is a 71 year old female with a past medical history of multiple medical problems including CKD, anemia on procrit presented to the ED with fatigue similar to previous episodes when her count was low. She was sent from [place] with a hgb of 6.8 yesterday on labs. Also her INR was 3.2 yesterday on labs. COumadin was held. Pt has had multiple workups and inpatient stays for her anemia. ER course was notable for: (1) Hgb 5.9 (2) BUN 123/Cr 3.7 (3) K 5.8 Recent Travel: pt denies PAST MEDICAL HISTORY: HTN, HLD, CHF, Afib on coumadin, anemia, CKD, COPD, DM, arthritis, GERD, gout, depression PAST SURGICAL HISTORY: L ankle surgery Social History: Smoking: Alcohol: Drugs: Family History: mother age 83, heart disease, DM father age 44, complications of DM son age 38, suicide daughter alive with DM Allergies No Known Allergies Allergy (Verified 06/22/17 14:22) Home Medications 3 Medication Instructions Recorded Acetaminophen [Extra Strength 1,000 mg PO Q8H PRN 06/22/17 Non-Aspirin] Albuterol 2.5/Ipratropium 0.5 1 neb IH QID PRN 06/22/17 [Duoneb -] Allopurinol [Zyloprim -] 100 mg PO DAILY 06/22/17 Ascorbic Acid [Vitamin C] 500 mg PO DAILY 06/22/17 Bisacodyl 10 mg PO HS 06/22/17 Budesonide/Formeterol Fumarate 1 puff IH DAILY 06/22/17 [SYMBICORT 160/4.5mcg -] Carvedilol [Coreg -] 25 mg PO DAILY 06/22/17 Cholecalciferol (Vitamin D3) 50,000 unit PO WEEKLY 06/22/17 [Dialyvite Vitamin D3 Max] Ciprofloxacin [Cipro (Restricted 500 mg PO Q12H 06/22/17 To Id)] Colchicine 0.3 mg PO DAILY 06/22/17 Docusate Sodium [Colace] 300 mg PO HS 06/22/17 Epoetin Orlando [Procrit -] 10,000 unit SQ ASDIR 06/22/17 Folic Acid 1 mg PO DAILY 06/22/17 Gabapentin 100 mg PO TID 06/22/17 Glycerin 1 each RC ASDIR 06/22/17 Guaifenesin [Mucinex] 600 mg PO DAILY 06/22/17 Insulin (LOG) Aspart [NovoLOG -] See Protocol SQ TID 06/22/17 Insulin (Levemir) [Levemir Vial] 33 unit SQ DAILY 06/22/17 Iron Polysaccharides [Niferex-150 150 mg PO DAILY 06/22/17 -] Isosorbide Mononitrate [Imdur -] 60 mg PO DAILY 06/22/17 Lactulose (Oral Use) [Cephulac -] 45 ml PO HS 06/22/17 Magnesium Hydroxide [Milk of 15 ml PO Q3D 06/22/17 Magnesia] Multivit with Iron,Minerals 1 tab PO DAILY 06/22/17 [Compete] Nifedipine ER [Procardia XL -] 90 mg PO DAILY 06/22/17 Oxycodone HCl 10 mg PO Q8H PRN 06/22/17 Polyethylene Glycol 3350 [Miralax 17 gm PO DAILY 06/22/17 (For Daily Use) -] Ranitidine HCl [Zantac] 150 mg PO HS 06/22/17 Sennosides [Senna] 2 tab PO HS 06/22/17 Silver Sulfadiazine [Silvadene] 1 applic TP BID 06/22/17 Torsemide [Demadex] 80 mg PO DAILY 06/22/17 Warfarin Sodium 4.5 mg PO HS 06/22/17 REVIEW OF SYSTEMS CONSTITUTIONAL: Present: generalized weakness, malaise, fatigue Absent: fever, chills, diaphoresis, loss of appetite, weight change HEENT: Absent: rhinorrhea, nasal congestion, throat pain, throat swelling, difficulty swallowing, mouth swelling, ear pain, eye pain, visual changes CARDIOVASCULAR: Absent: chest pain, syncope, palpitations, irregular heart rate, lightheadedness , peripheral edema RESPIRATORY: Absent: cough, shortness of breath, dyspnea with exertion, orthopnea, wheezing, stridor, hemoptysis GASTROINTESTINAL: last BM yesterday Absent: abdominal pain, abdominal distension, nausea, vomiting, diarrhea, constipation, melena, hematochezia GENITOURINARY: Absent: dysuria, frequency, urgency, hesitancy, hematuria, flank pain, genital pain MUSCULOSKELETAL: Absent: myalgia, arthralgia, joint swelling, back pain, neck pain SKIN: Absent: rash, itching, pallor HEMATOLOGIC/IMMUNOLOGIC: Absent: easy bleeding, easy bruising, lymphadenopathy, frequent infections ENDOCRINE: Absent: unexplained weight gain, unexplained weight loss, heat intolerance, cold intolerance NEUROLOGIC: Absent: headache, focal weakness or paresthesias, dizziness, unsteady gait, seizure, mental status changes, bladder or bowel incontinence PSYCHIATRIC: Absent: anxiety, depression, suicidal or homicidal ideation, hallucinations. PHYSICAL EXAMINATION Vital Signs - 24 hr 3 06/22/17 14:19 Temperature 98.0 F Pulse Rate 70 Respiratory 18 Rate Blood Pressure 143/56 O2 Sat by Pulse 99 Oximetry (%) GENERAL: Awake, alert, and fully oriented, in no acute distress. morbidly obese HEAD: Normal with no signs of trauma. EYES: Pupils equal, round and reactive to light, +IOL, extraocular movements intact, sclera anicteric, conjunctiva pale. No lid lag. EARS, NOSE, THROAT: Ears normal, nares patent, oropharynx clear without exudates. Moist mucous membranes. NECK: Normal range of motion, supple without lymphadenopathy, JVD, or masses. LUNGS: Breath sounds equal, clear to auscultation bilaterally. No wheezes, and no crackles. No accessory muscle use. HEART: Regular rate and rhythm, normal S1 and S2 without murmur, rub or gallop. ABDOMEN: Soft, nontender, not distended, normoactive bowel sounds, no guarding, no rebound, no masses. No hepatomegaly or splenomegaly. MUSCULOSKELETAL: Normal range of motion at all joints. No bony deformities or tenderness. No CVA tenderness. UPPER EXTREMITIES: 2+ pulses, warm, well-perfused. No cyanosis. No clubbing. No peripheral edema. LOWER EXTREMITIES: 2+ pulses, warm, well-perfused. No calf tenderness. No peripheral edema. NEUROLOGICAL: Cranial nerves II-XII intact. Normal speech. Normal gait. PSYCHIATRIC: Cooperative. Good eye contact. Appropriate mood and affect. SKIN: Warm, dry, normal turgor, no rashes or lesions noted, normal capillary refill. left great toe medial aspect of nail skin with edema, blood blister noted under skin, no erythema or excessive warmth. Laboratory Results - last 24 hr 3 06/22/17 06/22/17 06/22/17 15:30 16:29 16:29 WBC 8.0 RBC 2.36 L D Hgb 5.9 L* D Hct 19.0 L D MCV 80.7 MCH 25.0 L MCHC 30.9 L RDW 18.8 H D Plt Count 180 MPV 7.7 Neutrophils % 70.6 Lymphocytes % 19.3 Monocytes % 7.2 Eosinophils % 2.3 Basophils % 0.6 Retic Count PT with INR 33.50 H INR 2.96 H PTT (Actin FS) 41.8 H Sodium Potassium Chloride Carbon Dioxide Anion Gap BUN Creatinine Creat Clearance w eGFR Random Glucose Calcium Total Bilirubin AST ALT Alkaline Phosphatase LD Total Troponin I Total Protein Albumin Blood Type O POSITIVE Antibody Screen Negative Crossmatch See Detail 3 06/22/17 16:57 WBC RBC Hgb Hct MCV MCH MCHC RDW Plt Count MPV Neutrophils % Lymphocytes % Monocytes % Eosinophils % Basophils % Retic Count 3.64 H D PT with INR INR PTT (Actin FS) Sodium 141 Potassium 5.8 H Chloride 108 H Carbon Dioxide 25 Anion Gap 8 BUN 123 H* Creatinine 3.7 H Creat Clearance w eGFR 12.08 Random Glucose 219 H Calcium 7.6 L Total Bilirubin 0.1 L D AST 4 L ALT 9 L Alkaline Phosphatase 52 LD Total 212 Troponin I < 0.02 Total Protein 6.4 Albumin 2.7 L Blood Type Antibody Screen Crossmatch ASSESSMENT/PLAN: 71yF with PMH HTN, HLD, CHF, Afib on coumadin, anemia, CKD, COPD, DM, arthritis , GERD, gout, depression presented to the ED with fatigue and low H/H. Anemia due to chronic disease/CKD - transfuse 2uPRBC - repeat CBC after 2nd unit CKD - Cr bumped to 3.7 from a baseline of 2.9-3.1 - consider renal consult hyperkalemia - kayexalate 15gm x1 - ecg ordered to r/o peaked Ts HTN/HLD/CHF - cont home meds - lasix 40mg between units Afib - rate controlled - hold coumadin x 1 more night given ABT use, restart tomorrow if INR remains less than 3 arthritis - cont tylenol and oxycodone prn gout - cont allopurinol and colchicien constipation - pt reports that she has a "major problem" with constipation - cont home laxatives Ingrown nail left great toe - cont cipro - podiatry consult if not dc in am, august f/u with podiatry at [place] DVT PPX - INR therapeutic but high normal range, restart coumadin tomorrow FEN - no IVF, Home fluid restriction of 1500mL to be continued - BMP in am - diabetic/renal diet as tolerated Dispo: Pt admitted to observation status for blood transfusion. DC home in am if Hgb improved Visit type - Emergency Visit Emergency Visit: Yes ED Registration Date: 06/22/17 Care time: The patient presented to the Emergency Department on the above date and was hospitalized for further evaluation of their emergent condition. - New Patient This patient is new to me today: Yes Date on this admission: 06/22/17 - Critical Care Critical Care patient: No Hospitalist Screening - Colonoscopy Questionnaire Colonoscopy Questionnaire: Colonoscopy Questionnaire - Patient: 50 - 75 years old and never had a screening colonoscopy: No History of colon or rectal polyps, or CA: No History of IBD, Crohn's disease or UC: No History of abdominal radiation therapy as a child: No - Relative: 1 with colon or rectal CA, or polyps at age 60 or younger: No Colon or rectal CA diagnosed at age 45 or younger: No Multiple relatives with colon or rectal CA: No - Outcome: Screening Result: Negative Screen
[2017-06-22] MEDS ORDERED: CIPROFLOXACIN 500 MG TABLET (RESTRICTED TO ID) PO SCH (21:15)
[2017-06-22] MEDS ORDERED: SODIUM POLYSTYRENE SULFONATE 15 GM/60 ML BOTTLE PO ONE (22:00)
[2017-06-22] MEDS ORDERED: FUROSEMIDE 40 MG/4 ML INJECTABLE VIAL ONE (22:34)
[2017-06-22 23:25] VITALS: BMI 65.8
[2017-06-22] MEDS: INSULIN SLIDING SCALE (NOVOLOG) 1 VIAL SQ SCH (23:52)
[2017-06-22] MEDS: GLYCERIN 1 RECTAL SUPPOSITORY, ADULT RC SCH (23:56)
[2017-06-22] MEDS: DOCUSATE SODIUM 100 MG CAPSULE (FP) PO SCH (23:57)
[2017-06-22] MEDS: LACTULOSE 20 GM/30 ML UDC (FOR ORAL USE ONLY) PO SCH (23:57)
[2017-06-23] MEDS ORDERED: SODIUM POLYSTYRENE SULFONATE 15 GM/60 ML BOTTLE PO ONE (00:15)
[2017-06-23] MEDS: oxyCODONE HCL 5 MG TABLET PO PRN ×3 (00:15→16:31)
[2017-06-23] MEDS: BISACODYL 5 MG TABLET.DR (FP) PO SCH ×2 (00:16→21:57)
[2017-06-23] MEDS: RANITIDINE HCL 150 MG TABLET (FP) PO SCH ×2 (00:16→21:58)
[2017-06-23] MEDS: SENNOSIDES 8.6MG TABLET (FP) PO SCH ×2 (00:16→21:58)
[2017-06-23] MEDS: GABAPENTIN 100 MG CAPSULE (FP) PO SCH ×4 (00:16→21:59)
[2017-06-23] MEDS ORDERED: INSULIN (NOVOLOG) ASPART 100 UNITS/ML 10ML VIAL ONE ×3 (05:53→21:32)
[2017-06-23] MEDS ORDERED: INSULIN DETEMIR 100 UNITS/ML MDV SQ ONE (05:53)
[2017-06-23] MEDS: INSULIN DETEMIR 100 UNITS/ML MDV SQ SCH (06:19)
[2017-06-23] MEDS: INSULIN SLIDING SCALE (NOVOLOG) 1 VIAL SQ SCH ×4 (06:22→21:59)
[2017-06-23 08:10] LABS: BASO % 0.6 % (0-2.0); EOS % 2.2 % (0-4.5); HEMATOCRIT 21.7 % (32.4-45.2); HEMOGLOBIN 7.1 GM/dL (10.7-15.3); LYMPH % 23.2 % (8-40); MCH 26.4 pg (25.7-33.7); MCHC 32.6 g/dl (32.0-36.0); MEAN PLT VOLUME 8.2 fl (7.5-11.1); MONO % 8.8 % (3.8-10.2); NEUT % 65.2 % (42.8-82.8); PLATELET COUNT 165 K/MM3 (134-434); RBC 2.68 M/mm3 (3.60-5.2); RDW 17.4 % (11.6-15.6); WHITE BLOOD COUNT 8.5 K/mm3 (4.0-10.0)
[2017-06-23 08:34] LABS: ANION GAP 8 (8-16); CHLORIDE 108 mmol/L (98-107); CO2 27 mmol/L (21-32); CREATININE 3.7 mg/dL (0.55-1.02); GLUCOSE,RANDOM 151 mg/dL (74-106); PHOSPHOROUS 5.3 mg/dL (2.5-4.9); POTASSIUM 5.1 mmol/L (3.5-5.1); SODIUM 143 mmol/L (136-145)
[2017-06-23 08:52] LABS: INR 2.49 (0.82-1.09); PROTHROMBIN TIME (PATIENT) 28.1 SEC (9.98-11.88)
[2017-06-23 08:53] LABS: CALCIUM 7.8 mg/dL (8.5-10.1)
[2017-06-23] MEDS ORDERED: PT OWN MED DRAWER 7, Y5N ONE ×3 (09:02→17:15)
[2017-06-23 09:03] LABS: BLOOD UREA NITROGEN 114 mg/dL (7-18)
[2017-06-23] MEDS: MULTIVITAMINS THER W-MINERALS COMBO TABLET (FP) PO SCH (09:20)
[2017-06-23] MEDS: guaiFENesin 600 MG TABLET.ER (FP) PO SCH (09:21)
[2017-06-23] MEDS: TORSEMIDE 20 MG TABLET (FP) PO SCH (09:21)
[2017-06-23] MEDS: ALLOPURINOL 100 MG TABLET (FP) PO SCH (09:21)
[2017-06-23] MEDS: MAGNESIUM HYDROX 2400MG/30ML ORAL SUSPENSION 30 ML CUP PO SCH ×2 (09:21→19:07)
[2017-06-23] MEDS: ISOSORBIDE MONONITRATE 60 MG TAB.SR.24H (FP) PO SCH (09:22)
[2017-06-23] MEDS: FOLIC ACID 1 MG TABLET (FP) PO SCH (09:22)
[2017-06-23] MEDS: POLYETHYLENE GLYCOL 3350 119 GM BTL PO SCH (09:22)
[2017-06-23] MEDS: ASCORBIC ACID 500 MG TABLET (FP) PO SCH (09:22)
[2017-06-23] MEDS: CARVEDILOL 25 MG TABLET (FP) PO SCH (09:22)
[2017-06-23] MEDS: COLCHICINE 0.6 MG TABLET (FP) PO SCH (09:22)
--- NOTE | 2017-06-23 10:48 | PN ---
Progress Note, Physician Chief Complaint: No distress no SOB , dizziness Here for transfusion She has previous h/o multiple admissions for transfusion - Current Medication List Current Medications: Active Medications Albuterol/Ipratropium (Duoneb -) 1 amp NEB Q6H PRN PRN Reason: WHEEZING Allopurinol (Zyloprim -) 100 mg PO DAILY [facility] Last Admin: 06/23/17 09:21 Dose: 100 mg Ascorbic Acid (Vitamin C -) 500 mg PO DAILY [facility] Last Admin: 06/23/17 09:22 Dose: 500 mg Bisacodyl (Dulcolax -) 10 mg PO [facility] Last Admin: 06/23/17 00:16 Dose: 10 mg Budesonide/Formoterol Fumarate (Symbicort 160/4.5mcg -) 1 puff IH DAILY [facility] Carvedilol (Coreg -) 25 mg PO DAILY [facility] Last Admin: 06/23/17 09:22 Dose: 25 mg Colchicine (Colcrys -) 0.3 mg PO DAILY [facility] Last Admin: 06/23/17 09:22 Dose: 0.3 mg Docusate Sodium (Colace -) 300 mg PO [facility] Last Admin: 06/22/17 23:57 Dose: Not Given Epoetin Orlando (Procrit -) 10,000 unit SQ MoWeFr@1000 [facility] Ergocalciferol (Drisdol -) 50,000 unit PO We@1000 [facility] Folic Acid (Folic Acid -) 1 mg PO DAILY [facility] Last Admin: 06/23/17 09:22 Dose: 1 mg Gabapentin (Neurontin -) 100 mg PO TID [facility] Last Admin: 06/23/17 06:19 Dose: 100 mg Glycerin (Glycerin Suppository Adult -) 1 each RC DAILY [facility] Last Admin: 06/22/17 23:56 Dose: Not Given Guaifenesin (Mucinex -) 600 mg PO DAILY [facility] Last Admin: 06/23/17 09:21 Dose: 600 mg Insulin Aspart (Novolog Vial Sliding Scale -) 1 vial SQ [facility] PRN Reason: Protocol Last Admin: 06/22/17 23:52 Dose: Not Given Insulin Aspart (Novolog Vial Sliding Scale -) 1 vial SQ TIDAC [facility] PRN Reason: Protocol Last Admin: 06/23/17 06:22 Dose: 2 units Insulin Detemir (Levemir Vial) 33 units SQ DAILY@0700 [facility] Last Admin: 06/23/17 06:19 Dose: 33 units Isosorbide Mononitrate (Imdur -) 60 mg PO DAILY [facility] Last Admin: 06/23/17 09:22 Dose: 60 mg Lactulose (Cephulac (Oral Use)) 30 gm PO HS [facility] Last Admin: 06/22/17 23:57 Dose: Not Given Levofloxacin (Levaquin -) 250 mg PO DAILY@0600 [facility] Magnesium Hydroxide (Milk Of Magnesia -) 15 ml PO Q3D@1000 [facility] Last Admin: 06/23/17 09:21 Dose: 15 ml Multivitamins/Minerals (Theragran-M) 1 each PO DAILY [facility] Last Admin: 06/23/17 09:20 Dose: 1 each Nifedipine (Procardia Xl -) 90 mg PO DAILY [facility] Oxycodone HCl (Roxicodone -) 10 mg PO TID PRN PRN Reason: PAIN LEVEL 6-10 Last Admin: 06/23/17 09:20 Dose: 10 mg Polyethylene Glycol (Miralax (For Daily Use) -) 17 gm PO DAILY [facility] Last Admin: 06/23/17 09:22 Dose: 17 gm Polysaccharide Iron Complex (Niferex-150 -) 150 mg PO DAILY [facility] Ranitidine HCl (Zantac -) 150 mg PO [facility] Last Admin: 06/23/17 00:16 Dose: 150 mg Senna (Senna -) 2 tab PO [facility] Last Admin: 06/23/17 00:16 Dose: 2 tab Torsemide (Demadex -) 80 mg PO DAILY [facility] Last Admin: 06/23/17 09:21 Dose: 80 mg Warfarin Sodium 2.5 mg/ (Warfarin Sodium 2 mg) 4.5 mg PO DAILY@1800 [facility] - Objective Vital Signs: Vital Signs Temperature 98.1 F 06/23/17 04:00 Pulse Rate 58 L 06/23/17 04:00 Respiratory Rate 20 06/23/17 04:00 Blood Pressure 130/60 06/23/17 04:00 O2 Sat by Pulse Oximetry (%) 97 06/23/17 07:00 Constitutional: Yes: No Distress Cardiovascular: Yes: Pulse Irregular Respiratory: Yes: Diminished Gastrointestinal: Yes: Normal Bowel Sounds, Soft, Abdomen, Obese. No: Tenderness Edema: Yes Labs: CBC, BMP 06/23/17 06:30 06/23/17 06:30 INR, PTT INR 2.49 (0.82-1.09) H 06/23/17 08:15 Problem List - Problems (1) Severe anemia Code(s): D64.9 - ANEMIA, UNSPECIFIED (2) Acute on chronic renal insufficiency Code(s): N28.9 - DISORDER OF KIDNEY AND URETER, UNSPECIFIED; N18.9 - CHRONIC KIDNEY DISEASE, UNSPECIFIED (3) Afib Code(s): I48.91 - UNSPECIFIED ATRIAL FIBRILLATION Qualifiers: Atrial fibrillation type: persistent Qualified Code(s): I48.1 - Persistent atrial fibrillation (4) Anemia Code(s): D64.9 - ANEMIA, UNSPECIFIED Qualifiers: Anemia type: unspecified type Qualified Code(s): D64.9 - Anemia, unspecified (5) Anemia requiring transfusions Code(s): D64.9 - ANEMIA, UNSPECIFIED (6) CHF (congestive heart failure) Code(s): I50.9 - HEART FAILURE, UNSPECIFIED Qualifiers: Qualified Code(s): I50.9 - Heart failure, unspecified Assessment/Plan PLAN Received 2 unit8s PRBC so far Will transfuse one more today-- baseline around 8 pt refuses endoscopic interventions Continue with Couamdin per INR No active bleeding renal eval DVT px-- Warfarin
[2017-06-23] MEDS: BUDESONIDE/FORMETEROL FUMARATE 160/4.5 mcg INHALER IH SCH (13:23)
[2017-06-23] MEDS: GLYCERIN 1 RECTAL SUPPOSITORY, ADULT RC SCH (13:24)
[2017-06-23] MEDS: IRON POLYSACCHARIDES 150 MG CAPSULE PO SCH (13:24)
[2017-06-23] MEDS: NIFEdipine E.R. 90 MG TABLET (FP) PO SCH (13:24)
--- NOTE | 2017-06-23 16:42 | EKG ---
Test Reason : Blood Pressure : / mmHG Vent. Rate : 057 BPM Atrial Rate : 057 BPM P-R Int : 200 ms QRS Dur : 092 ms QT Int : 432 ms P-R-T Axes : 030 024 -60 degrees QTc Int : 420 ms POOR DATA QUALITY, INTERPRETATION MAY BE ADVERSELY AFFECTED SINUS BRADYCARDIA ABNORMAL QRS-T ANGLE, CONSIDER PRIMARY T WAVE ABNORMALITY ABNORMAL ECG WHEN COMPARED WITH ECG OF 12-OCT-2016 19:45, PREMATURE SUPRAVENTRICULAR COMPLEXES ARE NO LONGER PRESENT NON-SPECIFIC CHANGE IN ST SEGMENT IN INFERIOR LEADS NONSPECIFIC T WAVE ABNORMALITY NOW EVIDENT IN INFERIOR LEADS Confirmed by ELOISA KOCH MD ([id number]) on 06/23/2017 4:41:55 PM Referred By: Confirmed By:ELOISA KOCH MD
--- NOTE | 2017-06-23 17:04 | CON.NEP ---
Consult Consult Specialty:: nephrology Reason for Consultation:: ckd - History of Present Illness Chief Complaint: severe anemia History of Present Illness: "The patient is a 71 year old female brought via EMS from [facility], with a significant past medical history of HTN, HLD, DM, GOUT, GERD, UTI, Chronic lower extremity edema, CHF, arthritis, AFIB, COPD and anemia with multiple blood transfusion, who presents to the emergency department with anemia and possibly needing a blood transfusion. She denies any recent changes. No nausea or vomiting. No increased dyspnea. Does not know why she is on anticoagulation. - History Source History Provided By: Patient, Medical Record - Past Medical History Cardio/Vascular: Yes: AFIB (anticoagulants for 5 yrs , on coumadin), CHF, HTN, Hyperlipdemia. No: CAD Pulmonary: Yes: Asthma, COPD Gastrointestinal: Yes: Constipation, GERD, Hemorrhoids, Other (does not remember about colonscopy ) Renal/: Yes: Renal Inusuff, UTI (h/o recurrent uti) ...: No Psych: Yes: Depression (because son at age 38 yrs by sucide ) Musculoskeletal: Yes: Osteoarthritis Endocrine: Yes: Diabetes Mellitus (IDDM since age 40 yrs ), Other (morbid obesity ) Additional Medical History: morbid obesity - Past Surgical History Past Surgical History: Yes: (40 years ago per patient) - Alcohol/Substance Use Hx Alcohol Use: No History of Substance Use: reports: None - Smoking History Smoking history: Never smoked Have you smoked in the past 12 months: No Aproximately how many cigarettes per day: 0 - Social History Usual Living Arrangement: Detention (for 2 yrs at [facility]) Home Medications - Allergies Allergies/Adverse Reactions: Allergies Allergy/AdvReac Type Severity Reaction Status Date / Time No Known Allergies Allergy Verified 06/22/17 14:22 - Home Medications Home Medications: Ambulatory Orders Acetaminophen [Extra Strength Non-Aspirin] 1,000 mg PO Q8H PRN 06/22/17 Albuterol 2.5/Ipratropium 0.5 [Duoneb -] 1 neb IH QID PRN 06/22/17 Allopurinol [Zyloprim -] 100 mg PO DAILY 06/22/17 Ascorbic Acid [Vitamin C] 500 mg PO DAILY 06/22/17 Bisacodyl 10 mg PO HS 06/22/17 Budesonide/Formeterol Fumarate [SYMBICORT 160/4.5mcg -] 1 puff IH DAILY Carvedilol [Coreg -] 25 mg PO DAILY 06/22/17 Cholecalciferol (Vitamin D3) [Dialyvite Vitamin D3 Max] 50,000 unit PO WEEKLY Ciprofloxacin [Cipro (Restricted To Id)] 500 mg PO Q12H 06/22/17 Colchicine 0.3 mg PO DAILY 06/22/17 Docusate Sodium [Colace] 300 mg PO HS 06/22/17 Epoetin [place] [Procrit -] 10,000 unit SQ ASDIR 06/22/17 Folic Acid 1 mg PO DAILY 06/22/17 Gabapentin 100 mg PO TID 06/22/17 Glycerin 1 each RC ASDIR 06/22/17 Guaifenesin [Mucinex] 600 mg PO DAILY 06/22/17 Insulin (LOG) Aspart [NovoLOG -] See Protocol SQ TID 06/22/17 Insulin (Levemir) [Levemir Vial] 33 unit SQ DAILY 06/22/17 Iron Polysaccharides [Niferex-150 -] 150 mg PO DAILY 06/22/17 Isosorbide Mononitrate [Imdur -] 60 mg PO DAILY 06/22/17 Lactulose (Oral Use) [Cephulac -] 45 ml PO HS 06/22/17 Magnesium Hydroxide [Milk of Magnesia] 15 ml PO Q3D 06/22/17 Multivit with Iron,Minerals [Compete] 1 tab PO DAILY 06/22/17 Nifedipine ER [Procardia XL -] 90 mg PO DAILY 06/22/17 Oxycodone HCl 10 mg PO Q8H PRN 06/22/17 Polyethylene Glycol 3350 [Miralax (For Daily Use) -] 17 gm PO DAILY 06/22/17 Ranitidine HCl [Zantac] 150 mg PO HS 06/22/17 Sennosides [Senna] 2 tab PO HS 06/22/17 Silver Sulfadiazine [Silvadene] 1 applic TP BID 06/22/17 Torsemide [Demadex] 80 mg PO DAILY 06/22/17 Warfarin Sodium 4.5 mg PO HS 06/22/17 Family Disease History - Family Disease History Family Disease History: Diabetes: Father, Mother Review of Systems - Review of Systems Constitutional: reports: Weakness Eyes: reports: No Symptoms HENT: reports: No Symptoms Neck: reports: No Symptoms Cardiovascular: reports: No Symptoms Respiratory: reports: SOB Gastrointestinal: reports: No Symptoms Genitourinary: reports: No Symptoms Breasts: reports: No Symptoms Reported Musculoskeletal: reports: No Symptoms Integumentary: reports: No Symptoms Neurological: reports: No Symptoms Endocrine: reports: No Symptoms Hematology/Lymphatic: reports: No Symptoms Nephrology Consult - Height Height: 5 ft 2 in - Weight Weight: 360 lb - BMI Body Mass Index (BMI): 65.8 - Lab Results CBC,BMP: CBC, BMP 06/23/17 06:30 06/23/17 06:30 Anion Gap: Anion Gap Anion Gap 8 (8-16) 06/23/17 06:30 - Imaging EKG: Report Reviewed - Physical Examination Vital Signs: Vital Signs Temperature 98.5 F 06/23/17 15:40 Pulse Rate 71 06/23/17 15:40 Respiratory Rate 16 06/23/17 15:40 Blood Pressure 134/71 06/23/17 15:40 O2 Sat by Pulse Oximetry (%) 100 06/23/17 15:00 Constitutional: Yes: Obese Eyes: Yes: Conjunctiva Clear Neck: Yes: Supple, Trachea Midline Cardiovascular: Yes: Pulse Irregular Respiratory: Yes: Rhonchi, SOB Gastrointestinal: Yes: Normal Bowel Sounds Renal/: Yes: WNL Musculoskeletal: Yes: WNL Extremities: Yes: WNL Edema: LLE: 2+, RLE: 2+ Wound/Incision: Yes: Clean/Dry, Well Approximated Neurological: Yes: Alert, Oriented Psychiatric: Yes: Alert, Oriented Assessment/Plan IMPRESSION maddi on ckd ckd likely due to diabetes has high light ratios on previous testing obesity anemia due to bleeding maddi may be from severe anemia PLAN monitor renal function obtain urine sodium and creatinine renal sono avoid nephrotoxins and hypotension repeat protein and creatinine heme eval MV
[2017-06-23] MEDS ORDERED: WARFARIN NA 2 MG TABLET (UD) ONE (17:14)
[2017-06-23] MEDS ORDERED: WARFARIN NA 2.5 MG TABLET (FP) ONE (17:14)
[2017-06-23] MEDS: WARFARIN NA 2.5 MG, WARFARIN NA 2 MG PO SCH (17:17)
[2017-06-23] MEDS: LACTULOSE 20 GM/30 ML UDC (FOR ORAL USE ONLY) PO SCH (21:57)
[2017-06-23] MEDS: DOCUSATE SODIUM 100 MG CAPSULE (FP) PO SCH (21:59)
[2017-06-23] MEDS ORDERED: WARFARIN SODIUM 4.5 MG PO SCH (22:00)
[2017-06-23] MEDS: ALBUTEROL SO4 2.5/IPRATROPIUM 0.5 INH SOL 3 ML VIAL.NEB. NEB PRN (22:09)
[2017-06-23 22:17] LABS: URINE APPEARANCE CLOUDY; URINE BILIRUBIN NEGATIVE (NEGATIVE); URINE BLOOD 1+ (NEGATIVE); URINE COLOR LTYELLOW; URINE GLUCOSE (UA) NEGATIVE (NEGATIVE); URINE KETONE NEGATIVE (NEGATIVE); URINE NITRITE NEGATIVE (NEGATIVE); URINE UROBILINOGEN NEGATIVE mg/dL (0.2-1.0)
[2017-06-23 22:22] LABS: URINE LEUK ESTERASE 3+ (NEGATIVE); URINE PROTEIN 1+ (NEGATIVE)
[2017-06-23 22:25] LABS: EPI CELLS RARE /HPF (FEW); URINE BACTERIA MANY /hpf (NONE SEEN); URINE HYALINE CAST 2 /lpf; URINE MUCUS RARE
[2017-06-23 22:34] LABS: URINE CREATININE 28.3 mg/dL (20-320)
[2017-06-23 22:54] LABS: RATIO URIN PROTEIN/URIN CREAT 1.166 MG/DL
[2017-06-24] MEDS: oxyCODONE HCL 5 MG TABLET PO PRN ×2 (01:27→17:06)
[2017-06-24] MEDS: GABAPENTIN 100 MG CAPSULE (FP) PO SCH ×2 (06:10→14:01)
[2017-06-24] MEDS: INSULIN DETEMIR 100 UNITS/ML MDV SQ SCH (06:10)
[2017-06-24] MEDS: INSULIN SLIDING SCALE (NOVOLOG) 1 VIAL SQ SCH ×3 (06:11→17:08)
[2017-06-24] MEDS: ALBUTEROL SO4 2.5/IPRATROPIUM 0.5 INH SOL 3 ML VIAL.NEB. NEB PRN (07:34)
[2017-06-24 07:53] LABS: HEMATOCRIT 24.5 % (32.4-45.2); HEMOGLOBIN 7.8 GM/dL (10.7-15.3); MCH 25.9 pg (25.7-33.7); MEAN CELL VOLUME 80.9 fl (80-96); PLATELET COUNT 169 K/MM3 (134-434); RBC 3.03 M/mm3 (3.60-5.2); RDW 18.3 % (11.6-15.6); WHITE BLOOD COUNT 8.4 K/mm3 (4.0-10.0)
[2017-06-24 08:21] LABS: INR 2.84 (0.82-1.09); PROTHROMBIN TIME (PATIENT) 32.1 SEC (9.98-11.88)
[2017-06-24 08:29] LABS: CHLORIDE 110 mmol/L (98-107); POTASSIUM 4.8 mmol/L (3.5-5.1); SODIUM 145 mmol/L (136-145)
[2017-06-24 08:39] LABS: ANION GAP 7 (8-16); CALCIUM 7.9 mg/dL (8.5-10.1); CO2 28 mmol/L (21-32); CREATININE 3.5 mg/dL (0.55-1.02); GLUCOSE,RANDOM 122 mg/dL (74-106)
[2017-06-24 08:43] LABS: BLOOD UREA NITROGEN 110 mg/dL (7-18)
[2017-06-24] MEDS ORDERED: PT OWN MED DRAWER 7, Y5N ONE (09:33)
[2017-06-24] MEDS: COLCHICINE 0.6 MG TABLET (FP) PO SCH (09:49)
[2017-06-24] MEDS: MULTIVITAMINS THER W-MINERALS COMBO TABLET (FP) PO SCH (09:50)
[2017-06-24] MEDS: NIFEdipine E.R. 90 MG TABLET (FP) PO SCH (09:50)
[2017-06-24] MEDS: IRON POLYSACCHARIDES 150 MG CAPSULE PO SCH (09:50)
[2017-06-24] MEDS: FOLIC ACID 1 MG TABLET (FP) PO SCH (09:50)
[2017-06-24] MEDS: ALLOPURINOL 100 MG TABLET (FP) PO SCH (09:50)
[2017-06-24] MEDS: TORSEMIDE 20 MG TABLET (FP) PO SCH (09:50)
[2017-06-24] MEDS: ASCORBIC ACID 500 MG TABLET (FP) PO SCH (09:50)
[2017-06-24] MEDS: guaiFENesin 600 MG TABLET.ER (FP) PO SCH (09:51)
[2017-06-24] MEDS: ISOSORBIDE MONONITRATE 60 MG TAB.SR.24H (FP) PO SCH (09:51)
[2017-06-24] MEDS: CARVEDILOL 25 MG TABLET (FP) PO SCH (09:51)
[2017-06-24] MEDS: GLYCERIN 1 RECTAL SUPPOSITORY, ADULT RC SCH (09:51)
[2017-06-24] MEDS: POLYETHYLENE GLYCOL 3350 119 GM BTL PO SCH (09:51)
[2017-06-24] MEDS: BUDESONIDE/FORMETEROL FUMARATE 160/4.5 mcg INHALER IH SCH (09:51)
--- NOTE | 2017-06-24 10:22 | CON.GI ---
Consult Consult Specialty:: GI Reason for Consultation:: anemia - History of Present Illness History of Present Illness: chart reviewed. Events noted. Also reviewed recent hospitalizations for symptomatic anemia. As per initial intake:The patient is a 71 year old female brought via EMS from [facility], with a significant past medical history of HTN, HLD, DM, GOUT, GERD, UTI, Chronic lower extremity edema, CHF, arthritis, AFIB, COPD and anemia with multiple blood transfusion, who presents to the emergency department with anemia and possibly needing a blood transfusion. The patient currently has a hemoglobin count of 6.2 and notes that she feels fatigue. She denies any blood in stool or urine. On presentation the patient is bed bound and currently has an aide to assist her. She reports some mild constipation for which she has been taking Miralax. she has been constipated and using Miralax. she denies any urinary symptoms. The patient denies chest pain, shortness of breath, headache and dizziness. Denies fever, chills, nausea, vomit, diarrhea and constipation. Denies dysuria, frequency, urgency and hematuria. At the time of this encounter: The patient appears to be not in distress. Nonambulatory. Laying comfortably in her bed. BMI 64. Reports feeling tired. denies nausea, vomiting, hematemesis, hematochezia, melena. Denies dysphagia, odynophagia, or dyspepsia. He denies jaundice, low-grade fever, chills. She was admitted with INR of 3.2 while on Coumadin. Hemoglobin of 5.6 g/dl normocytic, hypochromic. BUN 110, creatinine 3.5. there is no recent history active gastrointestinal bleeding. The patient had multiple admissions in the past for anemia requiring blood transfusions. There is no record of EGD, or colonoscopy in [facility]. - History Source History Provided By: Patient, Medical Record - Past Medical History Cardio/Vascular: Yes: AFIB (anticoagulants for 5 yrs , on coumadin), CHF, HTN, Hyperlipdemia. No: CAD Pulmonary: Yes: Asthma, COPD Gastrointestinal: Yes: Constipation, GERD, Hemorrhoids, Other (does not remember about colonscopy ) Renal/: Yes: Renal Inusuff, UTI (h/o recurrent uti) ...: No Psych: Yes: Depression (because son at age 38 yrs by sucide ) Musculoskeletal: Yes: Osteoarthritis Endocrine: Yes: Diabetes Mellitus (IDDM since age 40 yrs ), Other (morbid obesity ) Additional Medical History: morbid obesity - Past Surgical History Past Surgical History: Yes: (40 years ago per patient) - Alcohol/Substance Use Hx Alcohol Use: No History of Substance Use: reports: None - Smoking History Smoking history: Never smoked Have you smoked in the past 12 months: No Aproximately how many cigarettes per day: 0 - Social History Usual Living Arrangement: Shelter (for 2 yrs at [facility]) Home Medications - Allergies Allergies/Adverse Reactions: Allergies Allergy/AdvReac Type Severity Reaction Status Date / Time No Known Allergies Allergy Verified 06/22/17 14:22 - Home Medications Home Medications: Ambulatory Orders Acetaminophen [Extra Strength Non-Aspirin] 1,000 mg PO Q8H PRN 06/22/17 Albuterol 2.5/Ipratropium 0.5 [Duoneb -] 1 neb IH QID PRN 06/22/17 Allopurinol [Zyloprim -] 100 mg PO DAILY 06/22/17 Ascorbic Acid [Vitamin C] 500 mg PO DAILY 06/22/17 Bisacodyl 10 mg PO HS 06/22/17 Budesonide/Formeterol Fumarate [SYMBICORT 160/4.5mcg -] 1 puff IH DAILY Carvedilol [Coreg -] 25 mg PO DAILY 06/22/17 Cholecalciferol (Vitamin D3) [Dialyvite Vitamin D3 Max] 50,000 unit PO WEEKLY Ciprofloxacin [Cipro (Restricted To Id)] 500 mg PO Q12H 06/22/17 Colchicine 0.3 mg PO DAILY 06/22/17 Docusate Sodium [Colace] 300 mg PO HS 06/22/17 Epoetin [place] [Procrit -] 10,000 unit SQ ASDIR 06/22/17 Folic Acid 1 mg PO DAILY 06/22/17 Gabapentin 100 mg PO TID 06/22/17 Glycerin 1 each RC ASDIR 06/22/17 Guaifenesin [Mucinex] 600 mg PO DAILY 06/22/17 Insulin (LOG) Aspart [NovoLOG -] See Protocol SQ TID 06/22/17 Insulin (Levemir) [Levemir Vial] 33 unit SQ DAILY 06/22/17 Iron Polysaccharides [Niferex-150 -] 150 mg PO DAILY 06/22/17 Isosorbide Mononitrate [Imdur -] 60 mg PO DAILY 06/22/17 Lactulose (Oral Use) [Cephulac -] 45 ml PO HS 06/22/17 Magnesium Hydroxide [Milk of Magnesia] 15 ml PO Q3D 06/22/17 Multivit with Iron,Minerals [Compete] 1 tab PO DAILY 06/22/17 Nifedipine ER [Procardia XL -] 90 mg PO DAILY 06/22/17 Oxycodone HCl 10 mg PO Q8H PRN 06/22/17 Polyethylene Glycol 3350 [Miralax (For Daily Use) -] 17 gm PO DAILY 06/22/17 Ranitidine HCl [Zantac] 150 mg PO HS 06/22/17 Sennosides [Senna] 2 tab PO HS 06/22/17 Silver Sulfadiazine [Silvadene] 1 applic TP BID 06/22/17 Torsemide [Demadex] 80 mg PO DAILY 06/22/17 Warfarin Sodium 4.5 mg PO HS 06/22/17 Family Disease History - Family Disease History Family History: Unremarkable Family Disease History: Diabetes: Father, Mother Review of Systems Findings/Remarks: please refer to HPI and H&P Physical Exam-GI Vital Signs: Vital Signs Temperature 97.2 F L 06/24/17 06:00 Pulse Rate 63 06/24/17 06:00 Respiratory Rate 20 06/24/17 06:00 Blood Pressure 158/60 06/24/17 06:00 O2 Sat by Pulse Oximetry (%) 98 06/24/17 01:00 Constitutional: Yes: Obese ( morbidly obese) Eyes: Yes: Conjunctiva Clear HENT: Yes: Atraumatic Neck: Yes: Supple Cardiovascular: No: Bradycardia, Tachycardia Respiratory: Yes: Regular Gastrointestinal Inspection: No: Ascites, Distention ...Auscultate: Yes: Normoactive Bowel Sounds ...Palpate: Yes: Soft. No: Firm/Rigid, Guarding ...Rectal Exam: Yes: Other ( Brown, formed stool sent to the lab for Hemoccult testing.) Neurological: Yes: Alert, Oriented Labs: CBC, BMP 06/24/17 06:30 06/24/17 06:30 INR, PTT INR 2.84 (0.82-1.09) H 06/24/17 06:30 Laboratory Tests 06/22/17 06/22/17 06/22/17 15:30 16:29 16:29 WBC 8.0 RBC 2.36 L D Hgb 5.9 L* D Hct 19.0 L D MCV 80.7 MCH 25.0 L MCHC 30.9 L RDW 18.8 H D Plt Count 180 MPV 7.7 Neutrophils % 70.6 Lymphocytes % 19.3 Monocytes % 7.2 Eosinophils % 2.3 Basophils % 0.6 Retic Count PT with INR 33.50 H INR 2.96 H PTT (Actin FS) 41.8 H Sodium Potassium Chloride Carbon Dioxide Anion Gap BUN Creatinine Creat Clearance w eGFR POC Glucometer Random Glucose Calcium Phosphorus Magnesium Total Bilirubin AST ALT Alkaline Phosphatase LD Total Troponin I Total Protein Albumin Urine Color Urine Appearance Urine pH Ur Specific [place] Urine Protein Urine Glucose (UA) Urine Ketones Urine Blood Urine Nitrite Urine Bilirubin Urine Urobilinogen Ur Leukocyte Esterase Urine WBC (Auto) Urine RBC (Auto) Ur Epithelial Cells Urine Bacteria Hyaline Casts Urine Mucus U Random Total Protein Ur Random Sodium Ur Random Urea Nitrogn Urine Creatinine Protein/Creatinin Ratio Blood Type O POSITIVE Antibody Screen Negative Crossmatch See Detail 06/22/17 06/22/17 06/22/17 16:57 16:57 16:57 WBC RBC Hgb Hct MCV MCH MCHC RDW Plt Count MPV Neutrophils % Lymphocytes % Monocytes % Eosinophils % Basophils % Retic Count 3.64 H D PT with INR INR PTT (Actin FS) Sodium Potassium Chloride Carbon Dioxide Anion Gap BUN Creatinine Creat Clearance w eGFR POC Glucometer Random Glucose Calcium Phosphorus Magnesium Total Bilirubin AST ALT Alkaline Phosphatase LD Total 212 Troponin I < 0.02 Total Protein Albumin Urine Color Urine Appearance Urine pH Ur Specific [place] Urine Protein Urine Glucose (UA) Urine Ketones Urine Blood Urine Nitrite Urine Bilirubin Urine Urobilinogen Ur Leukocyte Esterase Urine WBC (Auto) Urine RBC (Auto) Ur Epithelial Cells Urine Bacteria Hyaline Casts Urine Mucus U Random Total Protein Ur Random Sodium Ur Random Urea Nitrogn Urine Creatinine Protein/Creatinin Ratio Blood Type Antibody Screen Crossmatch 06/22/17 06/22/17 06/23/17 16:57 21:44 06:18 WBC RBC Hgb Hct MCV MCH MCHC RDW Plt Count MPV Neutrophils % Lymphocytes % Monocytes % Eosinophils % Basophils % Retic Count PT with INR INR PTT (Actin FS) Sodium 141 Potassium 5.8 H Chloride 108 H Carbon Dioxide 25 Anion Gap 8 BUN 123 H* Creatinine 3.7 H Creat Clearance w eGFR 12.08 POC Glucometer 200.83041 153 Random Glucose 219 H Calcium 7.6 L Phosphorus Magnesium Total Bilirubin 0.1 L D AST 4 L ALT 9 L Alkaline Phosphatase 52 LD Total Troponin I Total Protein 6.4 Albumin 2.7 L Urine Color Urine Appearance Urine pH Ur Specific [place] Urine Protein Urine Glucose (UA) Urine Ketones Urine Blood Urine Nitrite Urine Bilirubin Urine Urobilinogen Ur Leukocyte Esterase Urine WBC (Auto) Urine RBC (Auto) Ur Epithelial Cells Urine Bacteria Hyaline Casts Urine Mucus U Random Total Protein Ur Random Sodium Ur Random Urea Nitrogn Urine Creatinine Protein/Creatinin Ratio Blood Type Antibody Screen Crossmatch 06/23/17 06/23/17 06/23/17 06:30 06:30 08:15 WBC 8.5 RBC 2.68 L Hgb 7.1 L D Hct 21.7 L MCV 81.0 MCH 26.4 MCHC 32.6 RDW 17.4 H Plt Count 165 MPV 8.2 Neutrophils % 65.2 Lymphocytes % 23.2 D Monocytes % 8.8 Eosinophils % 2.2 Basophils % 0.6 Retic Count PT with INR 28.10 H INR 2.49 H PTT (Actin FS) Sodium 143 Potassium 5.1 Chloride 108 H Carbon Dioxide 27 Anion Gap 8 BUN 114 H* Creatinine 3.7 H Creat Clearance w eGFR POC Glucometer Random Glucose 151 H Calcium 7.8 L Phosphorus 5.3 H Magnesium 2.0 Total Bilirubin AST ALT Alkaline Phosphatase LD Total Troponin I Total Protein Albumin Urine Color Urine Appearance Urine pH Ur Specific [place] Urine Protein Urine Glucose (UA) Urine Ketones Urine Blood Urine Nitrite Urine Bilirubin Urine Urobilinogen Ur Leukocyte Esterase Urine WBC (Auto) Urine RBC (Auto) Ur Epithelial Cells Urine Bacteria Hyaline Casts Urine Mucus U Random Total Protein Ur Random Sodium Ur Random Urea Nitrogn Urine Creatinine Protein/Creatinin Ratio Blood Type Antibody Screen Crossmatch 06/23/17 06/23/17 06/23/17 11:42 16:59 21:15 WBC RBC Hgb Hct MCV MCH MCHC RDW Plt Count MPV Neutrophils % Lymphocytes % Monocytes % Eosinophils % Basophils % Retic Count PT with INR INR PTT (Actin FS) Sodium Potassium Chloride Carbon Dioxide Anion Gap BUN Creatinine Creat Clearance w eGFR POC Glucometer 178 207 Random Glucose Calcium Phosphorus Magnesium Total Bilirubin AST ALT Alkaline Phosphatase LD Total Troponin I Total Protein Albumin Urine Color Urine Appearance Urine pH Ur Specific [place] Urine Protein Urine Glucose (UA) Urine Ketones Urine Blood Urine Nitrite Urine Bilirubin Urine Urobilinogen Ur Leukocyte Esterase Urine WBC (Auto) Urine RBC (Auto) Ur Epithelial Cells Urine Bacteria Hyaline Casts Urine Mucus U Random Total Protein Ur Random Sodium 86 Ur Random Urea Nitrogn Urine Creatinine Protein/Creatinin Ratio Blood Type Antibody Screen Crossmatch 06/23/17 06/23/17 06/23/17 21:15 21:15 21:15 WBC RBC Hgb Hct MCV MCH MCHC RDW Plt Count MPV Neutrophils % Lymphocytes % Monocytes % Eosinophils % Basophils % Retic Count PT with INR INR PTT (Actin FS) Sodium Potassium Chloride Carbon Dioxide Anion Gap BUN Creatinine Creat Clearance w eGFR POC Glucometer Random Glucose Calcium Phosphorus Magnesium Total Bilirubin AST ALT Alkaline Phosphatase LD Total Troponin I Total Protein Albumin Urine Color Ltyellow Urine Appearance Cloudy Urine pH 5.0 Ur Specific [place] 1.009 Urine Protein 1+ H Urine Glucose (UA) Negative Urine Ketones Negative Urine Blood 1+ H Urine Nitrite Negative Urine Bilirubin Negative Urine Urobilinogen Negative Ur Leukocyte Esterase 3+ H Urine WBC (Auto) 71 Urine RBC (Auto) 7 Ur Epithelial Cells Rare Urine Bacteria Many Hyaline Casts 2 Urine Mucus Rare U Random Total Protein 33 H Ur Random Sodium Ur Random Urea Nitrogn 347 Urine Creatinine 28.3 Protein/Creatinin Ratio 1.166 Blood Type Antibody Screen Crossmatch 06/23/17 06/24/17 06/24/17 21:42 06:05 06:30 WBC 8.4 RBC 3.03 L Hgb 7.8 L Hct 24.5 L MCV 80.9 MCH 25.9 MCHC 32.0 RDW 18.3 H Plt Count 169 MPV 8.0 Neutrophils % Lymphocytes % Monocytes % Eosinophils % Basophils % Retic Count PT with INR INR PTT (Actin FS) Sodium Potassium Chloride Carbon Dioxide Anion Gap BUN Creatinine Creat Clearance w eGFR POC Glucometer 152 149 Random Glucose Calcium Phosphorus Magnesium Total Bilirubin AST ALT Alkaline Phosphatase LD Total Troponin I Total Protein Albumin Urine Color Urine Appearance Urine pH Ur Specific [place] Urine Protein Urine Glucose (UA) Urine Ketones Urine Blood Urine Nitrite Urine Bilirubin Urine Urobilinogen Ur Leukocyte Esterase Urine WBC (Auto) Urine RBC (Auto) Ur Epithelial Cells Urine Bacteria Hyaline Casts Urine Mucus U Random Total Protein Ur Random Sodium Ur Random Urea Nitrogn Urine Creatinine Protein/Creatinin Ratio Blood Type Antibody Screen Crossmatch 06/24/17 06/24/17 06/24/17 06:30 06:30 11:38 WBC RBC Hgb Hct MCV MCH MCHC RDW Plt Count MPV Neutrophils % Lymphocytes % Monocytes % Eosinophils % Basophils % Retic Count PT with INR 32.10 H INR 2.84 H PTT (Actin FS) Sodium 145 Potassium 4.8 Chloride 110 H Carbon Dioxide 28 Anion Gap 7 L BUN 110 H* Creatinine 3.5 H Creat Clearance w eGFR POC Glucometer 150 Random Glucose 122 H Calcium 7.9 L Phosphorus Magnesium Total Bilirubin AST ALT Alkaline Phosphatase LD Total Troponin I Total Protein Albumin Urine Color Urine Appearance Urine pH Ur Specific [place] Urine Protein Urine Glucose (UA) Urine Ketones Urine Blood Urine Nitrite Urine Bilirubin Urine Urobilinogen Ur Leukocyte Esterase Urine WBC (Auto) Urine RBC (Auto) Ur Epithelial Cells Urine Bacteria Hyaline Casts Urine Mucus U Random Total Protein Ur Random Sodium Ur Random Urea Nitrogn Urine Creatinine Protein/Creatinin Ratio Blood Type Antibody Screen Crossmatch 06/24/17 13:00 WBC 8.1 RBC 3.12 L Hgb 8.1 L Hct 25.2 L MCV 80.9 MCH 25.9 MCHC 32.1 RDW 17.8 H Plt Count 167 MPV 8.1 Neutrophils % Lymphocytes % Monocytes % Eosinophils % Basophils % Retic Count PT with INR INR PTT (Actin FS) Sodium Potassium Chloride Carbon Dioxide Anion Gap BUN Creatinine Creat Clearance w eGFR POC Glucometer Random Glucose Calcium Phosphorus Magnesium Total Bilirubin AST ALT Alkaline Phosphatase LD Total Troponin I Total Protein Albumin Urine Color Urine Appearance Urine pH Ur Specific [place] Urine Protein Urine Glucose (UA) Urine Ketones Urine Blood Urine Nitrite Urine Bilirubin Urine Urobilinogen Ur Leukocyte Esterase Urine WBC (Auto) Urine RBC (Auto) Ur Epithelial Cells Urine Bacteria Hyaline Casts Urine Mucus U Random Total Protein Ur Random Sodium Ur Random Urea Nitrogn Urine Creatinine Protein/Creatinin Ratio Blood Type Antibody Screen Crossmatch Imaging - Results Ultrasound: Report Reviewed Problem List - Problems (1) Symptomatic anemia Code(s): D64.9 - ANEMIA, UNSPECIFIED (2) Normocytic hypochromic anemia Code(s): D50.9 - IRON DEFICIENCY ANEMIA, UNSPECIFIED (3) Morbid obesity Code(s): E66.01 - MORBID (SEVERE) OBESITY DUE TO EXCESS CALORIES (4) Severe anemia Code(s): D64.9 - ANEMIA, UNSPECIFIED Assessment/Plan a 71-year-old female with multiple medical problems and frequent admissions for symptomatic anemia however without stigmata of recent, or ongoing GI blood loss. Significant renal insufficiency likely contributes to the anemia. The patient's BMI puts her at extremely high risk of complication, during diagnostic EGD, or colonoscopy. However, if observed, or suspected to have active, significant gastrointestinal bleeding, the benefit of intervention may outweigh the risk. Recommend conservative approach at this time. Reevaluate need for anticoagulation if stools test positive for blood. Agree with Zantac qhs. Consider small dose PPI in the morning. Maintain hemoglobin above 8 g/dL. Will follow until d/c.
[2017-06-24] MEDS: EPOETIN ALFA 10,000 UNIT/1 ML VIAL SQ SCH (10:35)
--- NOTE | 2017-06-24 10:58 | PN ---
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 Hgb 5.9-> 7.8 s/p 3u PRBC Current Medications Generic Name Dose Route Start Last Admin Trade Name Freq PRN Reason Stop Dose Admin Albuterol/Ipratropium 1 amp 06/22/17 21:10 06/24/17 07:34 Duoneb - NEB 1 amp Q6H PRN Administration WHEEZING Allopurinol 100 mg 06/23/17 10:00 06/24/17 09:50 Zyloprim - PO 100 mg DAILY [facility] Administration Ascorbic Acid 500 mg 06/23/17 10:00 06/24/17 09:50 Vitamin C - PO 500 mg DAILY [facility] Administration Bisacodyl 10 mg 06/22/17 22:00 06/23/17 21:57 Dulcolax - PO Not Given HS [facility] Budesonide/Formoterol Fumarate 1 puff 06/23/17 10:00 06/24/17 09:51 Symbicort 160/4.5mcg - IH 1 puff DAILY [facility] Administration Carvedilol 25 mg 06/23/17 10:00 06/24/17 09:51 Coreg - PO 25 mg DAILY [facility] Administration Colchicine 0.3 mg 06/23/17 10:00 06/24/17 09:49 Colcrys - PO 0.3 mg DAILY [facility] Administration Docusate Sodium 300 mg 06/22/17 22:00 06/23/17 21:59 Colace - PO 300 mg HS [facility] Administration Epoetin [place] 10,000 unit 06/24/17 10:00 06/24/17 10:35 Procrit - SQ 10,000 unit MoWeFr@1000 [facility] Administration Ergocalciferol 50,000 unit 06/29/17 10:00 Drisdol - PO We@1000 [facility] Folic Acid 1 mg 06/23/17 10:00 06/24/17 09:50 Folic Acid - PO 1 mg DAILY [facility] Administration Gabapentin 100 mg 06/22/17 22:00 06/24/17 06:10 Neurontin - PO 100 mg TID BR[facility]ANT Administration Glycerin 1 each 06/22/17 22:15 06/24/17 09:51 Glycerin Suppository Adult - RC Not Given DAILY [facility] Guaifenesin 600 mg 06/23/17 10:00 06/24/17 09:51 Mucinex - PO 600 mg DAILY [facility] Administration Insulin Aspart 1 vial 06/22/17 22:00 06/23/17 21:59 Novolog Vial Sliding Scale - SQ Not Given HS [facility] Protocol Insulin Aspart 1 vial 06/23/17 07:00 06/24/17 06:11 Novolog Vial Sliding Scale - SQ Not Given TIDAC [facility] Protocol Insulin Detemir 33 units 06/23/17 07:00 06/24/17 06:10 Levemir Vial SQ 33 units DAILY@0700 [facility] Administration Isosorbide Mononitrate 60 mg 06/23/17 10:00 06/24/17 09:51 Imdur - PO 60 mg DAILY [facility] Administration Lactulose 30 gm 06/22/17 22:00 06/23/17 21:57 Cephulac (Oral Use) PO Not Given HS [facility] Levofloxacin 250 mg 06/24/17 06:00 06/24/17 06:10 Levaquin - PO 250 mg DAILY@0600 [facility] Administration Magnesium Hydroxide 15 ml 06/23/17 10:00 06/23/17 19:07 Milk Of Magnesia - PO Not Given Q3D@1000 [facility] Multivitamins/Minerals 1 each 06/23/17 10:00 06/24/17 09:50 Theragran-M PO 1 each DAILY [facility] Administration Nifedipine 90 mg 06/23/17 10:00 06/24/17 09:50 Procardia Xl - PO 90 mg DAILY [facility] Administration Oxycodone HCl 10 mg 06/22/17 21:10 06/24/17 01:27 Roxicodone - PO 10 mg TID PRN Administration PAIN LEVEL 6-10 Polyethylene Glycol 17 gm 06/23/17 10:00 06/24/17 09:51 Miralax (For Daily Use) - PO 17 gm DAILY [facility] Administration Polysaccharide Iron Complex 150 mg 06/23/17 10:00 06/24/17 09:50 Niferex-150 - PO 150 mg DAILY [facility] Administration Ranitidine HCl 150 mg 06/22/17 22:00 06/23/17 21:58 Zantac - PO 150 mg HS [facility] Administration Senna 2 tab 06/22/17 22:00 06/23/17 21:58 Senna - PO 2 tab HS [facility] Administration Torsemide 80 mg 06/23/17 10:00 06/24/17 09:50 Demadex - PO 80 mg DAILY [facility] Administration Warfarin Sodium 2.5 mg/ 4.5 mg 06/23/17 18:00 06/23/17 17:17 Warfarin Sodium 2 mg PO 4.5 mg DAILY@1800 [facility] Administration Objective: Vital Signs Period Temp Pulse Resp BP Sys/Contreras Pulse Ox Last 24 Hr 97.2 F-98.5 F 59-71 16-20 134-158/46-71 98-100 Physical Exam: General: Morbidly obese, NAD, A&Ox3 Lungs: Distant breath sounds b/l anteriorly Heart: RRR, S1S2 Abd: Soft, non-tender, non-distended. Normoactive bowel sounds Ext: B/l lower extremity chronic skin changes, b/l edema CBCD WBC 8.4 K/mm3 (4.0-10.0) 06/24/17 06:30 RBC 3.03 M/mm3 (3.60-5.2) L 06/24/17 06:30 Hgb 7.8 GM/dL (10.7-15.3) L 06/24/17 06:30 Hct 24.5 % (32.4-45.2) L 06/24/17 06:30 MCV 80.9 fl (80-96) 06/24/17 06:30 MCHC 32.0 g/dl (32.0-36.0) 06/24/17 06:30 RDW 18.3 % (11.6-15.6) H 06/24/17 06:30 Plt Count 169 K/MM3 (134-434) 06/24/17 06:30 MPV 8.0 fl (7.5-11.1) 06/24/17 06:30 CMP Sodium 145 mmol/L (136-145) 06/24/17 06:30 Potassium 4.8 mmol/L (3.5-5.1) 06/24/17 06:30 Chloride 110 mmol/L (98-107) H 06/24/17 06:30 Carbon Dioxide 28 mmol/L (21-32) 06/24/17 06:30 Anion Gap 7 (8-16) L 06/24/17 06:30 BUN 110 mg/dL (7-18) H* 06/24/17 06:30 Creatinine 3.5 mg/dL (0.55-1.02) H 06/24/17 06:30 Creat Clearance w eGFR 12.08 (>60) 06/22/17 16:57 Random Glucose 122 mg/dL (74-106) H 06/24/17 06:30 Calcium 7.9 mg/dL (8.5-10.1) L 06/24/17 06:30 Total Bilirubin 0.1 mg/dL (0.2-1.0) L D 06/22/17 16:57 AST 4 U/L (15-37) L 06/22/17 16:57 ALT 9 U/L (12-78) L 06/22/17 16:57 Alkaline Phosphatase 52 U/L (45-117) 06/22/17 16:57 Total Protein 6.4 g/dl (6.4-8.2) 06/22/17 16:57 Albumin 2.7 g/dl (3.4-5.0) L 06/22/17 16:57 CARDIAC ENZYMES Troponin I < 0.02 ng/ml (0.00-0.05) 06/22/17 16:57 Assessment: This is a 71 year old female with PMHx of CKD, anemia (on procrit), HTN, HLD, CHF, A.fib on Coumadin, DM, arthritis, GERD, gout, depression, who presented to the ED with a low Hgb Plan: 1) Severe anemia - 2/2 chronic disease? Has hx of multiple blood transfusions - S/p 3u PRBC, Hgb 7.8 today - Patient has refused GI workup in the past, discussed today, is open to speaking with GI - F/u stool for occult blood - F/u CBC this afternoon, if Hgb dropping, will order more PRBC - F/u GI consult 2) REHANA on CKD - Slightly improved: Cr 3.7->3.5 - Renal ultrasound: no definite abnormality identified. No obvious interval change in comparison to prior ultrasounds - Avoid nephrotoxins and hypotension - FeUrea 39.8: intrinsic - Appreciate nephrology consult 3) Afib - On Coumadin - INR therapeutic today - Continue Coumadin for now, trend Hgb, may need to hold if trends down 4) CHF - No evidence of acute CHF - Continue Torsemide - Continue home medications 5) Ingrown toenail - F/u podiatry consult 6) DM: - BGM ACHS - ISS ACHS - Levemir 33u sq daily 6) F/E/N: - Fluid restriction: 1500ml/day - Diabetic diet 7) Prophylaxis: - INR therapeutic on Coumadin 8) Dispo: - Requires continued inpatient care CODE STATUS: FULL CODE Visit type - Emergency Visit Emergency Visit: Yes ED Registration Date: 06/24/17 Care time: The patient presented to the Emergency Department on the above date and was hospitalized for further evaluation of their emergent condition. - New Patient This patient is new to me today: Yes Date on this admission: 06/24/17 - Critical Care Critical Care patient: No
[2017-06-24] MEDS ORDERED: INSULIN (NOVOLOG) ASPART 100 UNITS/ML 10ML VIAL ONE ×2 (11:17→23:28)
[2017-06-24 13:48] LABS: HEMATOCRIT 25.2 % (32.4-45.2); HEMOGLOBIN 8.1 GM/dL (10.7-15.3); MCH 25.9 pg (25.7-33.7); MCHC 32.1 g/dl (32.0-36.0); MEAN CELL VOLUME 80.9 fl (80-96); MEAN PLT VOLUME 8.1 fl (7.5-11.1); PLATELET COUNT 167 K/MM3 (134-434); RBC 3.12 M/mm3 (3.60-5.2); RDW 17.8 % (11.6-15.6); WHITE BLOOD COUNT 8.1 K/mm3 (4.0-10.0)
[2017-06-24] MEDS ORDERED: LIDOCAINE HCL 1%, 10 MG/ML (20ML VIAL) ID ONE (14:09)
--- NOTE | 2017-06-24 14:36 | CONSULT ---
Consult - text type - Consultation Consultation Note: Patient is a morbidly obese female with a painful ingrown nail left lateral nail fold. Patient is diabetic. Painful for a few weeks. Tmax 98.3 nvs decreased, +ingrown lateral nail fold left, +drainage, +cellulitis, mal odor, +tender, +pus, wbc=8.1 ingrown toe nail 5cc 1 % lidocaine block after consent signed and witnessed. Nail avulsion lateral 1/3 left big toe. Betadine dressing change applied. Vascular consult. wound culture done. Will follow marley yang
--- NOTE | 2017-06-24 17:01 | PN ---
Progress Note (short form) - Note Progress Note: RENAL pt had an ingrown nail removed feels well Last Vital Signs Temp Pulse Resp BP Pulse Ox 98.4 F 61 16 139/51 97 06/24/17 15:25 06/24/17 15:25 06/24/17 15:25 06/24/17 15:25 06/24/17 09:00 lungs clear anteriorly cvs s1s2 rr abdomen soft, obese ext +edema neuro a+ox3 CBC, BMP 06/24/17 13:00 06/24/17 06:30 Current Medications Generic Name Dose Route Start Last Admin Trade Name Freq PRN Reason Stop Dose Admin Albuterol/Ipratropium 1 amp 06/22/17 21:10 06/24/17 07:34 Duoneb - NEB 1 amp Q6H PRN Administration WHEEZING Allopurinol 100 mg 06/23/17 10:00 06/24/17 09:50 Zyloprim - PO 100 mg DAILY [facility] Administration Ascorbic Acid 500 mg 06/23/17 10:00 06/24/17 09:50 Vitamin C - PO 500 mg DAILY [facility] Administration Bisacodyl 10 mg 06/22/17 22:00 06/23/17 21:57 Dulcolax - PO Not Given HS [facility] Budesonide/Formoterol Fumarate 1 puff 06/23/17 10:00 06/24/17 09:51 Symbicort 160/4.5mcg - IH 1 puff DAILY [facility] Administration Carvedilol 25 mg 06/23/17 10:00 06/24/17 09:51 Coreg - PO 25 mg DAILY [facility] Administration Colchicine 0.3 mg 06/23/17 10:00 06/24/17 09:49 Colcrys - PO 0.3 mg DAILY [facility] Administration Docusate Sodium 300 mg 06/22/17 22:00 06/23/17 21:59 Colace - PO 300 mg HS [facility] Administration Epoetin [place] 10,000 unit 06/24/17 10:00 06/24/17 10:35 Procrit - SQ 10,000 unit MoWeFr@1000 [facility] Administration Ergocalciferol 50,000 unit 06/29/17 10:00 Drisdol - PO We@1000 [facility] Folic Acid 1 mg 06/23/17 10:00 06/24/17 09:50 Folic Acid - PO 1 mg DAILY [facility] Administration Gabapentin 100 mg 06/22/17 22:00 06/24/17 14:01 Neurontin - PO 100 mg TID [facility] Administration Glycerin 1 each 06/22/17 22:15 06/24/17 09:51 Glycerin Suppository Adult - RC Not Given DAILY [facility] Guaifenesin 600 mg 06/23/17 10:00 06/24/17 09:51 Mucinex - PO 600 mg DAILY [facility] Administration Insulin Aspart 1 vial 06/22/17 22:00 06/23/17 21:59 Novolog Vial Sliding Scale - SQ Not Given HS [facility] Protocol Insulin Aspart 1 vial 06/23/17 07:00 06/24/17 11:39 Novolog Vial Sliding Scale - SQ Not Given TIDAC [facility] Protocol Insulin Detemir 33 units 06/23/17 07:00 06/24/17 06:10 Levemir Vial SQ 33 units DAILY@0700 [facility] Administration Isosorbide Mononitrate 60 mg 06/23/17 10:00 06/24/17 09:51 Imdur - PO 60 mg DAILY [facility] Administration Lactulose 30 gm 06/22/17 22:00 06/23/17 21:57 Cephulac (Oral Use) PO Not Given HS [facility] Levofloxacin 250 mg 06/24/17 06:00 06/24/17 06:10 Levaquin - PO 250 mg DAILY@0600 [facility] Administration Magnesium Hydroxide 15 ml 06/23/17 10:00 06/23/17 19:07 Milk Of Magnesia - PO Not Given Q3D@1000 [facility] Multivitamins/Minerals 1 each 06/23/17 10:00 06/24/17 09:50 Theragran-M PO 1 each DAILY [facility] Administration Nifedipine 90 mg 06/23/17 10:00 06/24/17 09:50 Procardia Xl - PO 90 mg DAILY [facility] Administration Oxycodone HCl 10 mg 06/22/17 21:10 06/24/17 01:27 Roxicodone - PO 10 mg TID PRN Administration PAIN LEVEL 6-10 Polyethylene Glycol 17 gm 06/23/17 10:00 06/24/17 09:51 Miralax (For Daily Use) - PO 17 gm DAILY [facility] Administration Polysaccharide Iron Complex 150 mg 06/23/17 10:00 06/24/17 09:50 Niferex-150 - PO 150 mg DAILY [facility] Administration Ranitidine HCl 150 mg 06/22/17 22:00 06/23/17 21:58 Zantac - PO 150 mg HS [facility] Administration Senna 2 tab 06/22/17 22:00 06/23/17 21:58 Senna - PO 2 tab HS [facility] Administration Torsemide 80 mg 06/23/17 10:00 06/24/17 09:50 Demadex - PO 80 mg DAILY [facility] Administration Warfarin Sodium 2.5 mg/ 4.5 mg 06/23/17 18:00 06/23/17 17:17 Warfarin Sodium 2 mg PO 4.5 mg DAILY@1800 [facility] Administration IMPRESSION ckd morbid obesity chf compensated constipation possible PAF, EKG now shows sinus bird REHANA stable gout severe anemia status post transfusion- unlikely due to CKD at such a low level PLAN monitor renal function on current meds If able to would dc colchicine would ask heme to eval will likely need egd/colonoscopy to better eval anemia though she may not be a great candidate for this not sure that anemia panel would be useful now MV
[2017-06-24] MEDS ORDERED: WARFARIN NA 2.5 MG TABLET (FP) ONE (17:04)
[2017-06-24] MEDS ORDERED: WARFARIN NA 2 MG TABLET (UD) ONE (17:04)
[2017-06-24] MEDS: WARFARIN NA 2.5 MG, WARFARIN NA 2 MG PO SCH (17:06)
--- NOTE | 2017-06-24 17:53 | PN ---
Progress Note (short form) - Note Progress Note: Vascular Surgery Pt seen and examined S/P ingrown toe removal by podiatry. Left foot is warm, pink, good cap refill. Cont present care. Pulses intact. No need for vascular intervention. Compression for swelling in both legs Prince Escamilla DO
[2017-06-25] MEDS: LACTULOSE 20 GM/30 ML UDC (FOR ORAL USE ONLY) PO SCH ×2 (00:09→21:54)
[2017-06-25] MEDS: BISACODYL 5 MG TABLET.DR (FP) PO SCH ×2 (00:09→21:53)
[2017-06-25] MEDS: INSULIN SLIDING SCALE (NOVOLOG) 1 VIAL SQ SCH ×5 (00:10→21:54)
[2017-06-25] MEDS: DOCUSATE SODIUM 100 MG CAPSULE (FP) PO SCH ×2 (00:11→21:53)
[2017-06-25] MEDS: RANITIDINE HCL 150 MG TABLET (FP) PO SCH ×2 (00:11→21:53)
[2017-06-25] MEDS: GABAPENTIN 100 MG CAPSULE (FP) PO SCH ×4 (00:11→21:53)
[2017-06-25] MEDS: SENNOSIDES 8.6MG TABLET (FP) PO SCH ×2 (00:11→21:53)
[2017-06-25] MEDS: oxyCODONE HCL 5 MG TABLET PO PRN ×3 (02:07→15:32)
[2017-06-25] MEDS: INSULIN DETEMIR 100 UNITS/ML MDV SQ SCH (06:51)
--- NOTE | 2017-06-25 07:57 | PN ---
Progress Note (short form) - Note Progress Note: Patient is a morbidly obese female s/p ingrown nail procedure. No new complaints. Tmax 98.3 nvs decreased, +resolved ingrown lateral nail fold left, -drainage, -cellulitis , -mal odor, -tender, -pus, ingrown toe nail resolved cellulitis Dressing removed. Betadine bandaid. Continue abx. Will follow for localized cellulitis and wound care. Betadine dressing change left big toe. Wound culture pending.
[2017-06-25 08:16] LABS: HEMATOCRIT 25.8 % (32.4-45.2); HEMOGLOBIN 8.2 GM/dL (10.7-15.3); MCH 25.7 pg (25.7-33.7); MCHC 31.6 g/dl (32.0-36.0); MEAN CELL VOLUME 81.4 fl (80-96); MEAN PLT VOLUME 8.1 fl (7.5-11.1); PLATELET COUNT 165 K/MM3 (134-434); RBC 3.17 M/mm3 (3.60-5.2); RDW 18.5 % (11.6-15.6); WHITE BLOOD COUNT 6.2 K/mm3 (4.0-10.0)
[2017-06-25 08:19] LABS: CHLORIDE 110 mmol/L (98-107); POTASSIUM 4.7 mmol/L (3.5-5.1); SODIUM 147 mmol/L (136-145)
[2017-06-25 08:24] LABS: INR 3.1 (0.82-1.09)
[2017-06-25 08:36] LABS: ALBUMIN 2.7 g/dl (3.4-5.0); ALK PHOS 45 U/L (45-117); ANION GAP 7 (8-16); BILIRUBIN,TOTAL 0.4 mg/dL (0.2-1.0); CALCIUM 8.2 mg/dL (8.5-10.1); CO2 30 mmol/L (21-32); CREATININE 3.7 mg/dL (0.55-1.02); GLUCOSE,RANDOM 93 mg/dL (74-106); SGOT/AST 7 U/L (15-37); SGPT/ALT 8 U/L (12-78); TOT PROT 6.5 g/dl (6.4-8.2)
--- NOTE | 2017-06-25 09:34 | PN ---
Progress Note (short form) - Note Progress Note: RENAL pt had an ingrown nail removed c/o pain in toe otherwise well Last Vital Signs Temp Pulse Resp BP Pulse Ox 98.3 F 70 20 146/72 97 06/25/17 07:28 06/25/17 07:28 06/25/17 07:28 06/25/17 07:28 06/25/17 01:00 morbidly obese woman lungs clear anteriorly cvs s1s2 rr abdomen soft, obese ext +edema neuro a+ox3 CBC, BMP 06/25/17 07:00 Current Medications Generic Name Dose Route Start Last Admin Trade Name Freq PRN Reason Stop Dose Admin Albuterol/Ipratropium 1 amp 06/22/17 21:10 06/24/17 07:34 Duoneb - NEB 1 amp Q6H PRN Administration WHEEZING Allopurinol 100 mg 06/23/17 10:00 06/24/17 09:50 Zyloprim - PO 100 mg DAILY [facility] Administration Ascorbic Acid 500 mg 06/23/17 10:00 06/24/17 09:50 Vitamin C - PO 500 mg DAILY [facility] Administration Bisacodyl 10 mg 06/22/17 22:00 06/25/17 00:09 Dulcolax - PO Not Given HS [facility] Budesonide/Formoterol Fumarate 1 puff 06/23/17 10:00 06/24/17 09:51 Symbicort 160/4.5mcg - IH 1 puff DAILY [facility] Administration Carvedilol 25 mg 06/23/17 10:00 06/24/17 09:51 Coreg - PO 25 mg DAILY [facility] Administration Colchicine 0.3 mg 06/23/17 10:00 06/24/17 09:49 Colcrys - PO 0.3 mg DAILY [facility] Administration Docusate Sodium 300 mg 06/22/17 22:00 06/25/17 00:11 Colace - PO 300 mg HS [facility] Administration Epoetin [place] 10,000 unit 06/24/17 10:00 06/24/17 10:35 Procrit - SQ 10,000 unit MoWeFr@1000 [facility] Administration Ergocalciferol 50,000 unit 06/29/17 10:00 Drisdol - PO We@1000 [facility] Folic Acid 1 mg 06/23/17 10:00 06/24/17 09:50 Folic Acid - PO 1 mg DAILY [facility] Administration Gabapentin 100 mg 06/22/17 22:00 06/25/17 06:51 Neurontin - PO 100 mg TID [facility] Administration Glycerin 1 each 06/22/17 22:15 06/24/17 09:51 Glycerin Suppository Adult - RC Not Given DAILY [facility] Guaifenesin 600 mg 06/23/17 10:00 06/24/17 09:51 Mucinex - PO 600 mg DAILY [facility] Administration Insulin Aspart 1 vial 06/22/17 22:00 06/25/17 00:10 Novolog Vial Sliding Scale - SQ Not Given HS [facility] Protocol Insulin Aspart 1 vial 06/23/17 07:00 06/25/17 06:52 Novolog Vial Sliding Scale - SQ Not Given TIDAC [facility] Protocol Insulin Detemir 33 units 06/23/17 07:00 06/25/17 06:51 Levemir Vial SQ 33 units DAILY@0700 [facility] Administration Isosorbide Mononitrate 60 mg 06/23/17 10:00 06/24/17 09:51 Imdur - PO 60 mg DAILY [facility] Administration Lactulose 30 gm 06/22/17 22:00 06/25/17 00:09 Cephulac (Oral Use) PO Not Given HS [facility] Levofloxacin 250 mg 06/24/17 06:00 06/25/17 06:51 Levaquin - PO 250 mg DAILY@0600 [facility] Administration Magnesium Hydroxide 15 ml 06/23/17 10:00 06/23/17 19:07 Milk Of Magnesia - PO Not Given Q3D@1000 [facility] Multivitamins/Minerals 1 each 06/23/17 10:00 06/24/17 09:50 Theragran-M PO 1 each DAILY [facility] Administration Nifedipine 90 mg 06/23/17 10:00 06/24/17 09:50 Procardia Xl - PO 90 mg DAILY [facility] Administration Oxycodone HCl 10 mg 06/22/17 21:10 06/25/17 08:13 Roxicodone - PO 10 mg TID PRN Administration PAIN LEVEL 6-10 Polyethylene Glycol 17 gm 06/23/17 10:00 06/24/17 09:51 Miralax (For Daily Use) - PO 17 gm DAILY [facility] Administration Polysaccharide Iron Complex 150 mg 06/23/17 10:00 06/24/17 09:50 Niferex-150 - PO 150 mg DAILY [facility] Administration Ranitidine HCl 150 mg 06/22/17 22:00 06/25/17 00:11 Zantac - PO 150 mg HS [facility] Administration Senna 2 tab 06/22/17 22:00 06/25/17 00:11 Senna - PO 2 tab HS [facility] Administration Torsemide 80 mg 06/23/17 10:00 06/24/17 09:50 Demadex - PO 80 mg DAILY [facility] Administration Warfarin Sodium 2.5 mg/ 4.5 mg 06/23/17 18:00 06/24/17 17:06 Warfarin Sodium 2 mg PO 4.5 mg DAILY@1800 [facility] Administration IMPRESSION ckd morbid obesity chf compensated constipation possible PAF, EKG now shows sinus bird REHANA stable-had fractional excretion of urea that was high which is against a prerenal state. Her high urea however may be from bleeding too gout severe anemia status post transfusion- unlikely due to CKD at such a low level PLAN monitor renal function on current meds If able to would dc colchicine would ask heme to eval will likely need egd/colonoscopy to better eval anemia though she may not be a great candidate for this not sure that anemia panel would be useful now antibiotics for UTI MV
[2017-06-25 09:38] LABS: BLOOD UREA NITROGEN 106 mg/dL (7-18)
[2017-06-25] MEDS ORDERED: PT OWN MED DRAWER 7, Y5N ONE (09:38)
[2017-06-25] MEDS: POLYETHYLENE GLYCOL 3350 119 GM BTL PO SCH (09:41)
[2017-06-25] MEDS: COLCHICINE 0.6 MG TABLET (FP) PO SCH (09:41)
[2017-06-25] MEDS: TORSEMIDE 20 MG TABLET (FP) PO SCH (09:41)
[2017-06-25] MEDS: ASCORBIC ACID 500 MG TABLET (FP) PO SCH (09:42)
[2017-06-25] MEDS: ISOSORBIDE MONONITRATE 60 MG TAB.SR.24H (FP) PO SCH (09:42)
[2017-06-25] MEDS: MULTIVITAMINS THER W-MINERALS COMBO TABLET (FP) PO SCH (09:42)
[2017-06-25] MEDS: ALLOPURINOL 100 MG TABLET (FP) PO SCH (09:42)
[2017-06-25] MEDS: GLYCERIN 1 RECTAL SUPPOSITORY, ADULT RC SCH (09:42)
[2017-06-25] MEDS: NIFEdipine E.R. 90 MG TABLET (FP) PO SCH (09:42)
[2017-06-25] MEDS: guaiFENesin 600 MG TABLET.ER (FP) PO SCH (09:42)
[2017-06-25] MEDS: FOLIC ACID 1 MG TABLET (FP) PO SCH (09:42)
[2017-06-25] MEDS: BUDESONIDE/FORMETEROL FUMARATE 160/4.5 mcg INHALER IH SCH (09:42)
[2017-06-25] MEDS: IRON POLYSACCHARIDES 150 MG CAPSULE PO SCH (09:42)
[2017-06-25] MEDS: CARVEDILOL 25 MG TABLET (FP) PO SCH (09:42)
--- NOTE | 2017-06-25 11:54 | PN ---
Progress Note, Physician History of Present Illness: patient seen and examined. Chart reviewed. Comfortable. Denies pain. All the follow-ups noted. - Current Medication List Current Medications: Active Medications Albuterol/Ipratropium (Duoneb -) 1 amp NEB Q6H PRN PRN Reason: WHEEZING Last Admin: 06/24/17 07:34 Dose: 1 amp Allopurinol (Zyloprim -) 100 mg PO DAILY [facility] Last Admin: 06/25/17 09:42 Dose: 100 mg Ascorbic Acid (Vitamin C -) 500 mg PO DAILY [facility] Last Admin: 06/25/17 09:42 Dose: 500 mg Bisacodyl (Dulcolax -) 10 mg PO [facility] Last Admin: 06/25/17 00:09 Dose: Not Given Budesonide/Formoterol Fumarate (Symbicort 160/4.5mcg -) 1 puff IH DAILY [facility] Last Admin: 06/25/17 09:42 Dose: 1 puff Carvedilol (Coreg -) 25 mg PO DAILY [facility] Last Admin: 06/25/17 09:42 Dose: 25 mg Colchicine (Colcrys -) 0.3 mg PO DAILY [facility] Last Admin: 06/25/17 09:41 Dose: 0.3 mg Docusate Sodium (Colace -) 300 mg PO [facility] Last Admin: 06/25/17 00:11 Dose: 300 mg Epoetin [place] (Procrit -) 10,000 unit SQ MoWeFr@1000 [facility] Last Admin: 06/24/17 10:35 Dose: 10,000 unit Ergocalciferol (Drisdol -) 50,000 unit PO We@1000 [facility] Folic Acid (Folic Acid -) 1 mg PO DAILY [facility] Last Admin: 06/25/17 09:42 Dose: 1 mg Gabapentin (Neurontin -) 100 mg PO TID [facility] Last Admin: 06/25/17 06:51 Dose: 100 mg Glycerin (Glycerin Suppository Adult -) 1 each RC DAILY [facility] Last Admin: 06/25/17 09:42 Dose: Not Given Guaifenesin (Mucinex -) 600 mg PO DAILY [facility] Last Admin: 06/25/17 09:42 Dose: 600 mg Insulin Aspart (Novolog Vial Sliding Scale -) 1 vial SQ [facility] PRN Reason: Protocol Last Admin: 06/25/17 00:10 Dose: Not Given Insulin Aspart (Novolog Vial Sliding Scale -) 1 vial SQ TIDAC [facility] PRN Reason: Protocol Last Admin: 06/25/17 06:52 Dose: Not Given Insulin Detemir (Levemir Vial) 33 units SQ DAILY@0700 [facility] Last Admin: 06/25/17 06:51 Dose: 33 units Isosorbide Mononitrate (Imdur -) 60 mg PO DAILY [facility] Last Admin: 06/25/17 09:42 Dose: 60 mg Lactulose (Cephulac (Oral Use)) 30 gm PO [facility] Last Admin: 06/25/17 00:09 Dose: Not Given Levofloxacin (Levaquin -) 250 mg PO DAILY@0600 [facility] Last Admin: 06/25/17 06:51 Dose: 250 mg Magnesium Hydroxide (Milk Of Magnesia -) 15 ml PO Q3D@1000 [facility] Last Admin: 06/23/17 19:07 Dose: Not Given Multivitamins/Minerals (Theragran-M) 1 each PO DAILY [facility] Last Admin: 06/25/17 09:42 Dose: 1 each Nifedipine (Procardia Xl -) 90 mg PO DAILY [facility] Last Admin: 06/25/17 09:42 Dose: 90 mg Oxycodone HCl (Roxicodone -) 10 mg PO TID PRN PRN Reason: PAIN LEVEL 6-10 Last Admin: 06/25/17 08:13 Dose: 10 mg Polyethylene Glycol (Miralax (For Daily Use) -) 17 gm PO DAILY [facility] Last Admin: 06/25/17 09:41 Dose: 17 gm Polysaccharide Iron Complex (Niferex-150 -) 150 mg PO DAILY [facility] Last Admin: 06/25/17 09:42 Dose: 150 mg Ranitidine HCl (Zantac -) 150 mg PO [facility] Last Admin: 06/25/17 00:11 Dose: 150 mg Senna (Senna -) 2 tab PO [facility] Last Admin: 06/25/17 00:11 Dose: 2 tab Torsemide (Demadex -) 80 mg PO DAILY [facility] Last Admin: 06/25/17 09:41 Dose: 80 mg Warfarin Sodium 2.5 mg/ (Warfarin Sodium 2 mg) 4.5 mg PO DAILY@1800 [facility] Last Admin: 06/24/17 17:06 Dose: 4.5 mg - Objective Vital Signs: Vital Signs Temperature 98.1 F 06/25/17 09:00 Pulse Rate 71 06/25/17 09:00 Respiratory Rate 18 06/25/17 09:00 Blood Pressure 125/55 06/25/17 09:00 O2 Sat by Pulse Oximetry (%) 97 06/25/17 01:00 Constitutional: Yes: No Distress, Calm Neck: Yes: Supple Cardiovascular: Yes: Regular Rate and Rhythm, Pulse Irregular Respiratory: Yes: Diminished Gastrointestinal: Yes: Soft, Abdomen, Obese Edema: LLE: 1+, RLE: 1+ Neurological: Yes: Alert Labs: CBC, BMP 06/25/17 07:00 06/25/17 07:00 INR, PTT INR 3.10 (0.82-1.09) H 06/25/17 07:00 Problem List - Problems (1) GI bleed Code(s): K92.2 - GASTROINTESTINAL HEMORRHAGE, UNSPECIFIED (2) Morbid obesity Code(s): E66.01 - MORBID (SEVERE) OBESITY DUE TO EXCESS CALORIES (3) Afib Code(s): I48.91 - UNSPECIFIED ATRIAL FIBRILLATION Qualifiers: Atrial fibrillation type: persistent Qualified Code(s): I48.1 - Persistent atrial fibrillation Assessment/Plan discussed with patient. We will transfuse another unit today Stool for occult blood positive Will hold Coumadin--patient also in agreement Continue antibiotics as per podiatry Cultures pending Monitor CBC today as well as electrolytes. Renal also following. Patient refusing GI workup Will follow.
[2017-06-25] MEDS ORDERED: ACETAMINOPHEN 325 MG TABLET (FP) PO PRN (18:05)
[2017-06-25] MEDS: ACETAMINOPHEN 325 MG TABLET (FP) PO PRN (18:29)
[2017-06-25] MEDS: SODIUM CHLORIDE 0.45% 1,000 ML IV SCH (18:30)
--- NOTE | 2017-06-25 18:48 | HOSP ---
Subjective - Review of Symptoms Events since last encounter: Called to assess patient Physical Examination Vital Signs: Vital Signs Temperature 101 F H 06/25/17 16:30 Pulse Rate 84 06/25/17 16:30 Respiratory Rate 18 06/25/17 16:30 Blood Pressure 144/95 06/25/17 16:30 O2 Sat by Pulse Oximetry (%) 98 06/25/17 09:00 Labs: CBC, BMP 06/25/17 07:00 06/25/17 07:00
--- NOTE | 2017-06-25 18:52 | PN ---
Progress Note (short form) - Note Progress Note: 6PM: Nurse reports pt developed fever 101 while receiving the blood denies cp, sob,palpitations,abdominal pain or any discomfort. No rash reported,blood transfusion stopped, transfusion reaction w/u ordered, will continue to monitor pt closely. Visit type - Emergency Visit Emergency Visit: Yes ED Registration Date: 06/24/17 Care time: The patient presented to the Emergency Department on the above date and was hospitalized for further evaluation of their emergent condition. - New Patient This patient is new to me today: Yes Date on this admission: 06/25/17 - Critical Care Critical Care patient: No
[2017-06-25 20:27] LABS: BASO % 0.2 % (0-2.0); EOS % 0.2 % (0-4.5); HEMATOCRIT 27.8 % (32.4-45.2); HEMOGLOBIN 8.9 GM/dL (10.7-15.3); LYMPH % 7.2 % (8-40); MCH 26.1 pg (25.7-33.7); MEAN CELL VOLUME 81.6 fl (80-96); MEAN PLT VOLUME 8.6 fl (7.5-11.1); MONO % 2.9 % (3.8-10.2); NEUT % 89.5 % (42.8-82.8); PLATELET COUNT 168 K/MM3 (134-434); RBC 3.41 M/mm3 (3.60-5.2); RDW 18.1 % (11.6-15.6); WHITE BLOOD COUNT 17.4 K/mm3 (4.0-10.0)
[2017-06-25 20:42] LABS: ANION GAP 6 (8-16); BLOOD UREA NITROGEN 103 mg/dL (7-18); CHLORIDE 110 mmol/L (98-107); CO2 31 mmol/L (21-32); CREATININE 3.6 mg/dL (0.55-1.02); GLUCOSE,RANDOM 110 mg/dL (74-106); POTASSIUM 4.7 mmol/L (3.5-5.1); SODIUM 147 mmol/L (136-145)
[2017-06-25 23:05] LABS: URINE APPEARANCE SLCLOUDY; URINE BILIRUBIN NEGATIVE (NEGATIVE); URINE BLOOD 2+ (NEGATIVE); URINE COLOR LTYELLOW; URINE GLUCOSE (UA) NEGATIVE (NEGATIVE); URINE KETONE NEGATIVE (NEGATIVE); URINE NITRITE NEGATIVE (NEGATIVE); URINE UROBILINOGEN NEGATIVE mg/dL (0.2-1.0)
[2017-06-25 23:10] LABS: URINE LEUK ESTERASE 2+ (NEGATIVE); URINE PROTEIN 1+ (NEGATIVE)
[2017-06-25 23:11] LABS: EPI CELLS RARE /HPF (FEW); URINE BACTERIA MANY /hpf (NONE SEEN); URINE HYALINE CAST 2 /lpf; URINE MUCUS RARE
[2017-06-26] MEDS: ACETAMINOPHEN 325 MG TABLET (FP) PO PRN ×2 (02:10→09:42)
[2017-06-26] MEDS: GABAPENTIN 100 MG CAPSULE (FP) PO SCH ×3 (05:46→21:26)
[2017-06-26] MEDS: SODIUM CHLORIDE 0.45% 1,000 ML IV SCH (06:30)
[2017-06-26] MEDS: INSULIN SLIDING SCALE (NOVOLOG) 1 VIAL SQ SCH ×4 (06:35→21:27)
[2017-06-26 07:28] LABS: BASO % 0.3 % (0-2.0); EOS % 0.6 % (0-4.5); HEMOGLOBIN 8.4 GM/dL (10.7-15.3); LYMPH % 17.2 % (8-40); MCH 26.6 pg (25.7-33.7); MCHC 32.2 g/dl (32.0-36.0); MEAN CELL VOLUME 82.8 fl (80-96); MEAN PLT VOLUME 8.2 fl (7.5-11.1); MONO % 5.7 % (3.8-10.2); NEUT % 76.2 % (42.8-82.8); PLATELET COUNT 153 K/MM3 (134-434); RBC 3.15 M/mm3 (3.60-5.2); WHITE BLOOD COUNT 10.7 K/mm3 (4.0-10.0)
[2017-06-26] MEDS: INSULIN DETEMIR 100 UNITS/ML MDV SQ SCH (07:37)
[2017-06-26 08:03] LABS: CHLORIDE 109 mmol/L (98-107); POTASSIUM 4.6 mmol/L (3.5-5.1); SODIUM 149 mmol/L (136-145)
[2017-06-26 08:24] LABS: ALBUMIN 2.5 g/dl (3.4-5.0); ALK PHOS 41 U/L (45-117); ANION GAP 12 (8-16); BILIRUBIN,TOTAL 0.4 mg/dL (0.2-1.0); BLOOD UREA NITROGEN 99 mg/dL (7-18); CALCIUM 8.3 mg/dL (8.5-10.1); CO2 28 mmol/L (21-32); CREATININE 3.6 mg/dL (0.55-1.02); GLUCOSE,RANDOM 85 mg/dL (74-106); SGOT/AST 11 U/L (15-37); SGPT/ALT 7 U/L (12-78); TOT PROT 6.2 g/dl (6.4-8.2)
[2017-06-26] MEDS ORDERED: PT OWN MED DRAWER 7, Y5N ONE ×2 (09:32→11:24)
[2017-06-26] MEDS: COLCHICINE 0.6 MG TABLET (FP) PO SCH (09:38)
[2017-06-26] MEDS: MAGNESIUM HYDROX 2400MG/30ML ORAL SUSPENSION 30 ML CUP PO SCH (09:39)
[2017-06-26] MEDS: TORSEMIDE 20 MG TABLET (FP) PO SCH (09:39)
[2017-06-26] MEDS: ISOSORBIDE MONONITRATE 60 MG TAB.SR.24H (FP) PO SCH (09:39)
[2017-06-26] MEDS: FOLIC ACID 1 MG TABLET (FP) PO SCH (09:39)
[2017-06-26] MEDS: CARVEDILOL 25 MG TABLET (FP) PO SCH (09:39)
[2017-06-26] MEDS: MULTIVITAMINS THER W-MINERALS COMBO TABLET (FP) PO SCH (09:40)
[2017-06-26] MEDS: POLYETHYLENE GLYCOL 3350 119 GM BTL PO SCH (09:40)
[2017-06-26] MEDS: guaiFENesin 600 MG TABLET.ER (FP) PO SCH (09:40)
[2017-06-26] MEDS: ALLOPURINOL 100 MG TABLET (FP) PO SCH (09:41)
[2017-06-26] MEDS: ASCORBIC ACID 500 MG TABLET (FP) PO SCH (09:41)
[2017-06-26] MEDS: BUDESONIDE/FORMETEROL FUMARATE 160/4.5 mcg INHALER IH SCH (09:41)
[2017-06-26] MEDS: IRON POLYSACCHARIDES 150 MG CAPSULE PO SCH (09:44)
--- NOTE | 2017-06-26 09:44 | PN ---
Progress Note, Physician History of Present Illness: patient seen and examined. no obvious bleeding Requesting pain medications Getting IV fluids- - Current Medication List Current Medications: Active Medications Acetaminophen (Tylenol -) 650 mg PO Q6H PRN PRN Reason: fever Last Admin: 06/26/17 09:42 Dose: 650 mg Albuterol/Ipratropium (Duoneb -) 1 amp NEB Q6H PRN PRN Reason: WHEEZING Last Admin: 06/24/17 07:34 Dose: 1 amp Allopurinol (Zyloprim -) 100 mg PO DAILY [facility] Last Admin: 06/26/17 09:41 Dose: 100 mg Ascorbic Acid (Vitamin C -) 500 mg PO DAILY [facility] Last Admin: 06/26/17 09:41 Dose: 500 mg Bisacodyl (Dulcolax -) 10 mg PO [facility] Last Admin: 06/25/17 21:53 Dose: 10 mg Budesonide/Formoterol Fumarate (Symbicort 160/4.5mcg -) 1 puff IH DAILY [facility] Last Admin: 06/26/17 09:41 Dose: 1 puff Carvedilol (Coreg -) 25 mg PO DAILY [facility] Last Admin: 06/26/17 09:39 Dose: 25 mg Colchicine (Colcrys -) 0.3 mg PO DAILY [facility] Last Admin: 06/26/17 09:38 Dose: 0.3 mg Docusate Sodium (Colace -) 300 mg PO [facility] Last Admin: 06/25/17 21:53 Dose: 300 mg Epoetin [place] (Procrit -) 10,000 unit SQ MoWeFr@1000 [facility] Last Admin: 06/24/17 10:35 Dose: 10,000 unit Ergocalciferol (Drisdol -) 50,000 unit PO We@1000 [facility] Folic Acid (Folic Acid -) 1 mg PO DAILY [facility] Last Admin: 06/26/17 09:39 Dose: 1 mg Gabapentin (Neurontin -) 100 mg PO TID [facility] Last Admin: 06/26/17 05:46 Dose: 100 mg Glycerin (Glycerin Suppository Adult -) 1 each RC DAILY [facility] Last Admin: 06/25/17 09:42 Dose: Not Given Guaifenesin (Mucinex -) 600 mg PO DAILY [facility] Last Admin: 06/26/17 09:40 Dose: 600 mg Insulin Aspart (Novolog Vial Sliding Scale -) 1 vial SQ HS [facility] PRN Reason: Protocol Last Admin: 06/25/17 21:54 Dose: Not Given Insulin Aspart (Novolog Vial Sliding Scale -) 1 vial SQ TIDAC [facility] PRN Reason: Protocol Last Admin: 06/26/17 06:35 Dose: Not Given Insulin Detemir (Levemir Vial) 33 units SQ DAILY@0700 [facility] Last Admin: 06/26/17 07:37 Dose: 33 units Isosorbide Mononitrate (Imdur -) 60 mg PO DAILY [facility] Last Admin: 06/26/17 09:39 Dose: 60 mg Lactulose (Cephulac (Oral Use)) 30 gm PO HS [facility] Last Admin: 06/25/17 21:54 Dose: 30 gm Levofloxacin (Levaquin -) 250 mg PO DAILY@0600 [facility] Last Admin: 06/26/17 05:46 Dose: 250 mg Magnesium Hydroxide (Milk Of Magnesia -) 15 ml PO Q3D@1000 [facility] Last Admin: 06/26/17 09:39 Dose: 15 ml Multivitamins/Minerals (Theragran-M) 1 each PO DAILY [facility] Last Admin: 06/26/17 09:40 Dose: 1 each Nifedipine (Procardia Xl -) 90 mg PO DAILY [facility] Last Admin: 06/25/17 09:42 Dose: 90 mg Polyethylene Glycol (Miralax (For Daily Use) -) 17 gm PO DAILY [facility] Last Admin: 06/26/17 09:40 Dose: 17 gm Polysaccharide Iron Complex (Niferex-150 -) 150 mg PO DAILY [facility] Last Admin: 06/25/17 09:42 Dose: 150 mg Ranitidine HCl (Zantac -) 150 mg PO [facility] Last Admin: 06/25/17 21:53 Dose: 150 mg Senna (Senna -) 2 tab PO HS [facility] Last Admin: 06/25/17 21:53 Dose: 2 tab Torsemide (Demadex -) 80 mg PO DAILY [facility] Last Admin: 06/26/17 09:39 Dose: 80 mg - Objective Vital Signs: Vital Signs Temperature 97.8 F 06/26/17 06:34 Pulse Rate 69 06/26/17 06:34 Respiratory Rate 20 06/26/17 06:34 Blood Pressure 142/62 06/26/17 06:34 O2 Sat by Pulse Oximetry (%) 98 06/25/17 22:00 Constitutional: Yes: No Distress, Calm Eyes: Yes: Conjunctiva Clear Neck: Yes: Supple Cardiovascular: Yes: Regular Rate and Rhythm Respiratory: Yes: Diminished Gastrointestinal: Yes: Soft, Abdomen, Obese Edema: LLE: 1+, RLE: 1+ Neurological: Yes: Alert Labs: CBC, BMP 06/26/17 06:08 06/26/17 06:08 INR, PTT INR 3.10 (0.82-1.09) H 06/25/17 07:00 Problem List - Problems (1) GI bleed Code(s): K92.2 - GASTROINTESTINAL HEMORRHAGE, UNSPECIFIED (2) Morbid obesity Code(s): E66.01 - MORBID (SEVERE) OBESITY DUE TO EXCESS CALORIES (3) Afib Code(s): I48.91 - UNSPECIFIED ATRIAL FIBRILLATION Qualifiers: Atrial fibrillation type: persistent Qualified Code(s): I48.1 - Persistent atrial fibrillation Assessment/Plan transfuse when necessary Stool for occult blood positive on hold Coumadin-- Continue antibiotics as per podiatry Cultures pending Monitor CBC today as well as electrolytes. Renal also following. discontinue IV fluids. Discussed with nursing staff. ID to follow--- UTI and - wound cultures positive for MRSA. Will follow.
[2017-06-26] MEDS ORDERED: OXYBUTYNIN CHLORIDE 5 MG TABLET PO PRN (09:50)
[2017-06-26] MEDS: GLYCERIN 1 RECTAL SUPPOSITORY, ADULT RC SCH (09:56)
--- NOTE | 2017-06-26 10:29 | PN ---
Progress Note (short form) - Note Progress Note: RENAL no c/o Last Vital Signs Temp Pulse Resp BP Pulse Ox 97.8 F 69 20 142/62 98 06/26/17 06:34 06/26/17 06:34 06/26/17 06:34 06/26/17 06:34 06/25/17 22:00 morbidly obese woman lungs clear anteriorly cvs s1s2 rr abdomen soft, obese ext trace edema, +tenderness neuro a+ox3 CBC, BMP 06/26/17 06:08 06/26/17 06:08 Current Medications Generic Name Dose Route Start Last Admin Trade Name Freq PRN Reason Stop Dose Admin Acetaminophen 650 mg 06/25/17 18:15 06/26/17 09:42 Tylenol - PO 650 mg Q6H PRN Administration fever Albuterol/Ipratropium 1 amp 06/22/17 21:10 06/24/17 07:34 Duoneb - NEB 1 amp Q6H PRN Administration WHEEZING Allopurinol 100 mg 06/23/17 10:00 06/26/17 09:41 Zyloprim - PO 100 mg DAILY [facility] Administration Ascorbic Acid 500 mg 06/23/17 10:00 06/26/17 09:41 Vitamin C - PO 500 mg DAILY [facility] Administration Bisacodyl 10 mg 06/22/17 22:00 06/25/17 21:53 Dulcolax - PO 10 mg HS [facility] Administration Budesonide/Formoterol Fumarate 1 puff 06/23/17 10:00 06/26/17 09:41 Symbicort 160/4.5mcg - IH 1 puff DAILY [facility] Administration Carvedilol 25 mg 06/23/17 10:00 06/26/17 09:39 Coreg - PO 25 mg DAILY [facility] Administration Colchicine 0.3 mg 06/23/17 10:00 06/26/17 09:38 Colcrys - PO 0.3 mg DAILY [facility] Administration Docusate Sodium 300 mg 06/22/17 22:00 06/25/17 21:53 Colace - PO 300 mg HS [facility] Administration Epoetin [place] 10,000 unit 06/24/17 10:00 06/24/17 10:35 Procrit - SQ 10,000 unit MoWeFr@1000 [facility] Administration Ergocalciferol 50,000 unit 06/29/17 10:00 Drisdol - PO We@1000 [facility] Folic Acid 1 mg 06/23/17 10:00 06/26/17 09:39 Folic Acid - PO [address] [facility] Administration Gabapentin 100 mg 06/22/17 22:00 06/26/17 05:46 Neurontin - PO [address] [facility] Administration Glycerin 1 each 06/22/17 22:15 06/26/17 09:56 Glycerin Suppository Adult - RC Not Given DAILY [facility] Guaifenesin 600 mg 06/23/17 10:00 06/26/17 09:40 Mucinex - PO [address] [facility] Administration Insulin Aspart 1 vial 06/22/17 22:00 06/25/17 21:54 Novolog Vial Sliding Scale - SQ Not Given HS [facility] Protocol Insulin Aspart 1 vial 06/23/17 07:00 06/26/17 06:35 Novolog Vial Sliding Scale - SQ Not Given TIDAC [facility] Protocol Insulin Detemir 33 units 06/23/17 07:00 06/26/17 07:37 Levemir Vial SQ 33 units DAILY@0700 [facility] Administration Isosorbide Mononitrate 60 mg 06/23/17 10:00 06/26/17 09:39 Imdur - PO [address] [facility] Administration Lactulose 30 gm 06/22/17 22:00 06/25/17 21:54 Cephulac (Oral Use) PO [address] [facility] Administration Levofloxacin 250 mg 06/24/17 06:00 06/26/17 05:46 Levaquin - PO 250 mg DAILY@0600 [facility] Administration Magnesium Hydroxide 15 ml 06/23/17 10:00 06/26/17 09:39 Milk Of Magnesia - PO 15 ml Q3D@1000 [facility] Administration Multivitamins/Minerals 1 each 06/23/17 10:00 06/26/17 09:40 Theragran-M PO [address] [facility] Administration Nifedipine 90 mg 06/23/17 10:00 06/25/17 09:42 Procardia Xl - PO [address] [facility] Administration Oxybutynin Chloride 5 mg 06/26/17 09:50 Ditropan - PO TID PRN PAIN LEVEL 6-10 Polyethylene Glycol 17 gm 06/23/17 10:00 06/26/17 09:40 Miralax (For Daily Use) - PO [address] [facility] Administration Polysaccharide Iron Complex 150 mg 06/23/17 10:00 03/18/18 09:44 Niferex-150 - PO 150 mg DAILY [facility] Administration Ranitidine HCl 150 mg 06/22/17 22:00 06/25/17 21:53 Zantac - PO 150 mg HS [facility] Administration Senna 2 tab 06/22/17 22:00 06/25/17 21:53 Senna - PO 2 tab HS [facility] Administration Torsemide 80 mg 06/23/17 10:00 06/26/17 09:39 Demadex - PO 80 mg DAILY [facility] Administration IMPRESSION ckd morbid obesity chf compensated constipation possible PAF, EKG now shows sinus bird REHANA stable-had fractional excretion of urea that was high which is against a prerenal state. Her high urea however may be from bleeding too gout severe anemia status post transfusion- unlikely due to CKD at such a low level. Also has guaiac pos stoools PLAN monitor renal function on current meds dc ivf. would preferr to hold diuretic than to give fluids will likely need egd/colonoscopy to better eval anemia though she may not be a great candidate for this MV
[2017-06-26] MEDS: NIFEdipine E.R. 90 MG TABLET (FP) PO SCH (11:26)
[2017-06-26] MEDS: oxyCODONE HCL 5 MG TABLET PO PRN ×2 (13:50→21:25)
[2017-06-26] MEDS: BISACODYL 5 MG TABLET.DR (FP) PO SCH (21:26)
[2017-06-26] MEDS: SENNOSIDES 8.6MG TABLET (FP) PO SCH (21:26)
[2017-06-26] MEDS: RANITIDINE HCL 150 MG TABLET (FP) PO SCH (21:26)
[2017-06-26] MEDS: DOCUSATE SODIUM 100 MG CAPSULE (FP) PO SCH (21:27)
[2017-06-26] MEDS: LACTULOSE 20 GM/30 ML UDC (FOR ORAL USE ONLY) PO SCH ×2 (21:27→21:32)
[2017-06-27] MEDS: oxyCODONE HCL 5 MG TABLET PO PRN ×3 (05:50→23:25)
[2017-06-27] MEDS: GABAPENTIN 100 MG CAPSULE (FP) PO SCH ×3 (05:51→23:24)
[2017-06-27] MEDS ORDERED: PT OWN MED DRAWER 7, Y5N ONE ×2 (05:57→19:23)
[2017-06-27] MEDS: INSULIN SLIDING SCALE (NOVOLOG) 1 VIAL SQ SCH ×4 (06:04→23:16)
[2017-06-27] MEDS: INSULIN DETEMIR 100 UNITS/ML MDV SQ SCH (06:04)
[2017-06-27] MEDS ORDERED: INSULIN (NOVOLOG) ASPART 100 UNITS/ML 10ML VIAL ONE ×2 (06:21→11:55)
[2017-06-27] MEDS ORDERED: INSULIN DETEMIR 100 UNITS/ML MDV SQ ONE (06:58)
[2017-06-27 07:23] LABS: CHLORIDE 107 mmol/L (98-107); POTASSIUM 4.4 mmol/L (3.5-5.1); SODIUM 148 mmol/L (136-145)
[2017-06-27 07:41] LABS: ALBUMIN 2.6 g/dl (3.4-5.0); ALK PHOS 46 U/L (45-117); ANION GAP 12 (8-16); BILIRUBIN,TOTAL 0.6 mg/dL (0.2-1.0); BLOOD UREA NITROGEN 104 mg/dL (7-18); CALCIUM 8.4 mg/dL (8.5-10.1); CO2 29 mmol/L (21-32); CREATININE 3.6 mg/dL (0.55-1.02); GLUCOSE,RANDOM 70 mg/dL (74-106); SGOT/AST 9 U/L (15-37); SGPT/ALT 9 U/L (12-78); TOT PROT 6.6 g/dl (6.4-8.2)
[2017-06-27 07:46] LABS: BASO % 0.4 % (0-2.0); EOS % 2.1 % (0-4.5); HEMATOCRIT 26.8 % (32.4-45.2); HEMOGLOBIN 8.6 GM/dL (10.7-15.3); LYMPH % 17.2 % (8-40); MCH 26.6 pg (25.7-33.7); MCHC 32.2 g/dl (32.0-36.0); MEAN CELL VOLUME 82.5 fl (80-96); MEAN PLT VOLUME 8.2 fl (7.5-11.1); MONO % 7.2 % (3.8-10.2); NEUT % 73.1 % (42.8-82.8); PLATELET COUNT 157 K/MM3 (134-434); RBC 3.25 M/mm3 (3.60-5.2); RDW 18.1 % (11.6-15.6); WHITE BLOOD COUNT 8.5 K/mm3 (4.0-10.0)
[2017-06-27] MEDS: ALBUTEROL SO4 2.5/IPRATROPIUM 0.5 INH SOL 3 ML VIAL.NEB. NEB PRN (08:14)
[2017-06-27] MEDS: COLCHICINE 0.6 MG TABLET (FP) PO SCH (10:05)
[2017-06-27] MEDS: ASCORBIC ACID 500 MG TABLET (FP) PO SCH (10:05)
[2017-06-27] MEDS: FOLIC ACID 1 MG TABLET (FP) PO SCH (10:05)
[2017-06-27] MEDS: CARVEDILOL 25 MG TABLET (FP) PO SCH (10:05)
[2017-06-27] MEDS: ISOSORBIDE MONONITRATE 60 MG TAB.SR.24H (FP) PO SCH (10:05)
[2017-06-27] MEDS: guaiFENesin 600 MG TABLET.ER (FP) PO SCH (10:06)
[2017-06-27] MEDS: MULTIVITAMINS THER W-MINERALS COMBO TABLET (FP) PO SCH (10:06)
[2017-06-27] MEDS: TORSEMIDE 20 MG TABLET (FP) PO SCH (10:06)
[2017-06-27] MEDS: POLYETHYLENE GLYCOL 3350 119 GM BTL PO SCH (10:07)
[2017-06-27] MEDS: NIFEdipine E.R. 90 MG TABLET (FP) PO SCH (10:08)
[2017-06-27] MEDS: IRON POLYSACCHARIDES 150 MG CAPSULE PO SCH (10:08)
[2017-06-27] MEDS: ALLOPURINOL 100 MG TABLET (FP) PO SCH (10:09)
[2017-06-27] MEDS: BUDESONIDE/FORMETEROL FUMARATE 160/4.5 mcg INHALER IH SCH (10:09)
[2017-06-27] MEDS: GLYCERIN 1 RECTAL SUPPOSITORY, ADULT RC SCH (10:09)
--- NOTE | 2017-06-27 10:36 | PN ---
Progress Note (short form) - Note Progress Note: Patient is a morbidly obese female s/p ingrown nail procedure. No new complaints. Tmax 97.8 nvs decreased, +resolved ingrown lateral nail fold left, -drainage, -cellulitis , -mal odor, -tender, -pus, +possible mrsa, +strep, wbc=8.5 ingrown toe nail resolved cellulitis Dressing removed. DC dressing to left big toe. Continue abx as per id, consulted today. . Will follow for localized cellulitis and wound care. Betadine dressing change left big toe. Wound culture read and appreciated. Will follow till dc. xray left foot.
--- NOTE | 2017-06-27 11:34 | PN ---
Progress Note, Physician History of Present Illness: No events, not in distress. No gross bleeding, melena - Current Medication List Current Medications: Active Medications Acetaminophen (Tylenol -) 650 mg PO Q6H PRN PRN Reason: fever Last Admin: 06/26/17 09:42 Dose: 650 mg Albuterol/Ipratropium (Duoneb -) 1 amp NEB Q6H PRN PRN Reason: WHEEZING Last Admin: 06/27/17 08:14 Dose: 1 amp Allopurinol (Zyloprim -) 100 mg PO DAILY [facility] Last Admin: 06/27/17 10:09 Dose: 100 mg Ascorbic Acid (Vitamin C -) 500 mg PO DAILY [facility] Last Admin: 06/27/17 10:05 Dose: 500 mg Bisacodyl (Dulcolax -) 10 mg PO [facility] Last Admin: 06/26/17 21:26 Dose: 10 mg Budesonide/Formoterol Fumarate (Symbicort 160/4.5mcg -) 1 puff IH DAILY [facility] Last Admin: 06/27/17 10:09 Dose: 1 puff Carvedilol (Coreg -) 25 mg PO DAILY [facility] Last Admin: 06/27/17 10:05 Dose: 25 mg Colchicine (Colcrys -) 0.3 mg PO DAILY [facility] Last Admin: 06/27/17 10:05 Dose: 0.3 mg Docusate Sodium (Colace -) 300 mg PO [facility] Last Admin: 06/26/17 21:27 Dose: 300 mg Epoetin [place] (Procrit -) 10,000 unit SQ MoWeFr@1000 [facility] Last Admin: 06/24/17 10:35 Dose: 10,000 unit Ergocalciferol (Drisdol -) 50,000 unit PO We@1000 [facility] Folic Acid (Folic Acid -) 1 mg PO DAILY [facility] Last Admin: 06/27/17 10:05 Dose: 1 mg Gabapentin (Neurontin -) 100 mg PO TID [facility] Last Admin: 06/27/17 05:51 Dose: 100 mg Glycerin (Glycerin Suppository Adult -) 1 each RC DAILY [facility] Last Admin: 06/27/17 10:09 Dose: Not Given Guaifenesin (Mucinex -) 600 mg PO DAILY [facility] Last Admin: 06/27/17 10:06 Dose: 600 mg Insulin Aspart (Novolog Vial Sliding Scale -) 1 vial SQ HS [facility] PRN Reason: Protocol Last Admin: 06/26/17 21:27 Dose: Not Given Insulin Aspart (Novolog Vial Sliding Scale -) 1 vial SQ TIDAC [facility] PRN Reason: Protocol Last Admin: 06/27/17 06:04 Dose: Not Given Insulin Detemir (Levemir Vial) 33 units SQ DAILY@0700 [facility] Last Admin: 06/27/17 06:04 Dose: Not Given Isosorbide Mononitrate (Imdur -) 60 mg PO DAILY [facility] Last Admin: 06/27/17 10:05 Dose: 60 mg Lactulose (Cephulac (Oral Use)) 30 gm PO HS [facility] Last Admin: 06/26/17 21:32 Dose: Not Given Levofloxacin (Levaquin -) 250 mg PO DAILY@0600 [facility] Last Admin: 06/27/17 05:51 Dose: 250 mg Magnesium Hydroxide (Milk Of Magnesia -) 15 ml PO Q3D@1000 [facility] Last Admin: 06/26/17 09:39 Dose: 15 ml Multivitamins/Minerals (Theragran-M) 1 each PO DAILY [facility] Last Admin: 06/27/17 10:06 Dose: 1 each Nifedipine (Procardia Xl -) 90 mg PO DAILY [facility] Last Admin: 06/27/17 10:08 Dose: 90 mg Oxycodone HCl (Roxicodone -) 5 mg PO TID PRN PRN Reason: PAIN LEVEL 6-10 Last Admin: 06/27/17 05:50 Dose: 5 mg Polyethylene Glycol (Miralax (For Daily Use) -) 17 gm PO DAILY [facility] Last Admin: 06/27/17 10:07 Dose: 17 gm Polysaccharide Iron Complex (Niferex-150 -) 150 mg PO DAILY [facility] Last Admin: 06/27/17 10:08 Dose: 150 mg Ranitidine HCl (Zantac -) 150 mg PO [facility] Last Admin: 06/26/17 21:26 Dose: 150 mg Senna (Senna -) 2 tab PO HS [facility] Last Admin: 06/26/17 21:26 Dose: 2 tab Torsemide (Demadex -) 80 mg PO DAILY [facility] Last Admin: 06/27/17 10:06 Dose: 80 mg - Objective Vital Signs: Vital Signs Temperature 97.8 F 06/27/17 06:00 Pulse Rate 66 06/27/17 06:00 Respiratory Rate 18 06/27/17 06:00 Blood Pressure 136/69 06/27/17 06:00 O2 Sat by Pulse Oximetry (%) 98 06/26/17 22:00 Constitutional: Yes: No Distress, Calm Eyes: Yes: Conjunctiva Clear HENT: Yes: Atraumatic Neck: Yes: Supple Cardiovascular: No: Bradycardia, Tachycardia Respiratory: Yes: Regular Gastrointestinal: Yes: Soft. No: Melena, Rectal Bleeding, Tenderness, Rebound, Vomiting Neurological: Yes: Alert, Oriented Labs: CBC, BMP 06/27/17 05:35 06/27/17 05:35 INR, PTT INR 3.10 (0.82-1.09) H 06/25/17 07:00 CBCD WBC 8.5 K/mm3 (4.0-10.0) 06/27/17 05:35 RBC 3.25 M/mm3 (3.60-5.2) L 06/27/17 05:35 Hgb 8.6 GM/dL (10.7-15.3) L 06/27/17 05:35 Hct 26.8 % (32.4-45.2) L 06/27/17 05:35 MCV 82.5 fl (80-96) 06/27/17 05:35 MCHC 32.2 g/dl (32.0-36.0) 06/27/17 05:35 RDW 18.1 % (11.6-15.6) H 06/27/17 05:35 Plt Count 157 K/MM3 (134-434) 06/27/17 05:35 MPV 8.2 fl (7.5-11.1) 06/27/17 05:35 CMP Sodium 148 mmol/L (136-145) H 06/27/17 05:35 Potassium 4.4 mmol/L (3.5-5.1) 06/27/17 05:35 Chloride 107 mmol/L (98-107) 06/27/17 05:35 Carbon Dioxide 29 mmol/L (21-32) 06/27/17 05:35 Anion Gap 12 (8-16) 06/27/17 05:35 BUN 104 mg/dL (7-18) H 06/27/17 05:35 Creatinine 3.6 mg/dL (0.55-1.02) H 06/27/17 05:35 Creat Clearance w eGFR 12.46 (>60) 06/27/17 05:35 Calcium 8.4 mg/dL (8.5-10.1) L 06/27/17 05:35 Total Bilirubin 0.6 mg/dL (0.2-1.0) D 06/27/17 05:35 AST 9 U/L (15-37) L 06/27/17 05:35 ALT 9 U/L (12-78) L 06/27/17 05:35 Alkaline Phosphatase 46 U/L (45-117) 06/27/17 05:35 Total Protein 6.6 g/dl (6.4-8.2) 06/27/17 05:35 Albumin 2.6 g/dl (3.4-5.0) L 06/27/17 05:35 Problem List - Problems (1) Symptomatic anemia Code(s): D64.9 - ANEMIA, UNSPECIFIED (2) Normocytic hypochromic anemia Code(s): D50.9 - IRON DEFICIENCY ANEMIA, UNSPECIFIED (3) Morbid obesity Code(s): E66.01 - MORBID (SEVERE) OBESITY DUE TO EXCESS CALORIES (4) Severe anemia Code(s): D64.9 - ANEMIA, UNSPECIFIED Assessment/Plan No stigmata of ongoing GI bleeding. Stable hemoglobin and vital signs.. Continue current care, no endoscopic intervention planed at at this time.
--- NOTE | 2017-06-27 11:45 | CON.ID ---
Consult Consult Specialty:: infectious diseases Reason for Consultation:: uti/wound infection - History of Present Illness History of Present Illness: 71 year old female with a past medical history of multiple medical problems including CKD, anemia on procrit admitted because of fatigue similar to previous episodes when her count was low. She was sent from [place] with a hgb of 6.8 patient had ingrowing toe nail which was operated by the podiatry department and the cx from the legs are growing bacteria. also looking at other other cx patient also has uti looking at the past history patient patient has multiple uti with esbl . currently patient is stable and has no symptoms and feels well patient ingrowing toe nail operated by the bedside patient has been seen by gi - History Source History Provided By: Patient, Medical Record Limitations to Obtaining History: Poor Historian - Past Medical History Cardio/Vascular: Yes: AFIB (anticoagulants for 5 yrs , on coumadin), CHF, HTN, Hyperlipdemia. No: CAD Pulmonary: Yes: Asthma, COPD Gastrointestinal: Yes: Constipation, GERD, Hemorrhoids, Other (does not remember about colonscopy ) Renal/: Yes: Renal Inusuff, UTI (h/o recurrent uti) ...: No Psych: Yes: Depression (because son at age 38 yrs by sucide ) Musculoskeletal: Yes: Osteoarthritis Endocrine: Yes: Diabetes Mellitus (IDDM since age 40 yrs ), Other (morbid obesity ) Additional Medical History: morbid obesity - Past Surgical History Past Surgical History: Yes: (40 years ago per patient) - Alcohol/Substance Use Hx Alcohol Use: No History of Substance Use: reports: None - Smoking History Smoking history: Never smoked Have you smoked in the past 12 months: No Aproximately how many cigarettes per day: 0 - Social History Usual Living Arrangement: Prison (for 2 yrs at [facility]) Home Medications - Allergies Allergies/Adverse Reactions: Allergies Allergy/AdvReac Type Severity Reaction Status Date / Time No Known Allergies Allergy Verified 06/22/17 14:22 - Home Medications Home Medications: Ambulatory Orders Acetaminophen [Extra Strength Non-Aspirin] 1,000 mg PO Q8H PRN 06/22/17 Albuterol 2.5/Ipratropium 0.5 [Duoneb -] 1 neb IH QID PRN 06/22/17 Allopurinol [Zyloprim -] 100 mg PO DAILY 06/22/17 Ascorbic Acid [Vitamin C] 500 mg PO DAILY 06/22/17 Bisacodyl 10 mg PO HS 06/22/17 Budesonide/Formeterol Fumarate [SYMBICORT 160/4.5mcg -] 1 puff IH DAILY Carvedilol [Coreg -] 25 mg PO DAILY 06/22/17 Cholecalciferol (Vitamin D3) [Dialyvite Vitamin D3 Max] 50,000 unit PO WEEKLY Ciprofloxacin [Cipro (Restricted To Id)] 500 mg PO Q12H 06/22/17 Colchicine 0.3 mg PO DAILY 06/22/17 Docusate Sodium [Colace] 300 mg PO HS 06/22/17 Epoetin [place] [Procrit -] 10,000 unit SQ ASDIR 06/22/17 Folic Acid 1 mg PO DAILY 06/22/17 Gabapentin 100 mg PO TID 06/22/17 Glycerin 1 each RC ASDIR 06/22/17 Guaifenesin [Mucinex] 600 mg PO DAILY 06/22/17 Insulin (LOG) Aspart [NovoLOG -] See Protocol SQ TID 06/22/17 Insulin (Levemir) [Levemir Vial] 33 unit SQ DAILY 06/22/17 Iron Polysaccharides [Niferex-150 -] 150 mg PO DAILY 06/22/17 Isosorbide Mononitrate [Imdur -] 60 mg PO DAILY 06/22/17 Lactulose (Oral Use) [Cephulac -] 45 ml PO HS 06/22/17 Magnesium Hydroxide [Milk of Magnesia] 15 ml PO Q3D 06/22/17 Multivit with Iron,Minerals [Compete] 1 tab PO DAILY 06/22/17 Nifedipine ER [Procardia XL -] 90 mg PO DAILY 06/22/17 Oxycodone HCl 10 mg PO Q8H PRN 06/22/17 Polyethylene Glycol 3350 [Miralax (For Daily Use) -] 17 gm PO DAILY 06/22/17 Ranitidine HCl [Zantac] 150 mg PO HS 06/22/17 Sennosides [Senna] 2 tab PO HS 06/22/17 Silver Sulfadiazine [Silvadene] 1 applic TP BID 06/22/17 Torsemide [Demadex] 80 mg PO DAILY 03/14/18 Warfarin Sodium 4.5 mg PO HS 06/22/17 Family Disease History - Family Disease History Family Disease History: Diabetes: Father, Mother Review of Systems - Review of Systems Constitutional: reports: No Symptoms Eyes: reports: No Symptoms HENT: reports: No Symptoms Neck: reports: No Symptoms Cardiovascular: reports: No Symptoms Respiratory: reports: No Symptoms Gastrointestinal: reports: No Symptoms Genitourinary: reports: No Symptoms Musculoskeletal: reports: No Symptoms Integumentary: reports: Erythema, Other Neurological: reports: No Symptoms Psychiatric: reports: No Symptoms Physical Exam Vital Signs: Vital Signs Temperature 97.8 F 06/27/17 06:00 Pulse Rate 66 06/27/17 06:00 Respiratory Rate 18 06/27/17 06:00 Blood Pressure 136/69 06/27/17 06:00 O2 Sat by Pulse Oximetry (%) 98 06/26/17 22:00 Constitutional: Yes: Well Nourished, No Distress, Calm, Obese (morbid) Eyes: Yes: Conjunctiva Clear, EOM Intact HENT: Yes: Atraumatic, Normocephalic Neck: Yes: Supple, Trachea Midline Cardiovascular: Yes: Pulse Irregular Respiratory: Yes: On Nasal O2, Poor Air Entry (at the bases) Gastrointestinal: Yes: Normal Bowel Sounds, Soft Musculoskeletal: Yes: WNL Extremities: Yes: WNL Neurological: Yes: Alert, Oriented Psychiatric: Yes: Alert, Oriented Labs: CBC, BMP 06/27/17 05:35 06/27/17 05:35 Imaging - Results Ultrasound: Report Reviewed, Image Reviewed Assessment/Plan Problem List - Problems (1) GI bleed Code(s): K92.2 - GASTROINTESTINAL HEMORRHAGE, UNSPECIFIED (2) Morbid obesity Code(s): E66.01 - MORBID (SEVERE) OBESITY DUE TO EXCESS CALORIES (3) Afib Code(s): I48.91 - UNSPECIFIED ATRIAL FIBRILLATION Qualifiers: Atrial fibrillation type: persistent Qualified Code(s): I48.1 - Persistent atrial fibrillation 4 uti 5 renal failure 6 wound infection 7 mrsa after looking at the cx and results i think we can give oral abx for wound infection but her urine is also positive and she has a history of esbl for which she will end up needing iv abx plan will start her on ertapenam and clinda await for identification of organism in urine with sensitivities and cx for the wound mrsa
[2017-06-27] MEDS: ERTAPENEM SODIUM 0.5 GM in SODIUM CHLORIDE 100 ML IVPB SCH (12:36)
[2017-06-27] MEDS: EPOETIN ALFA 10,000 UNIT/1 ML VIAL SQ SCH (12:36)
--- NOTE | 2017-06-27 13:13 | PN ---
Progress Note, Physician History of Present Illness: patient seen and examined. comfortable. Discussed with ID today. On broad-spectrum entry antibiotics--- due to UTI Pain okay Afebrile - Current Medication List Current Medications: Active Medications Acetaminophen (Tylenol -) 650 mg PO Q6H PRN PRN Reason: fever Last Admin: 06/26/17 09:42 Dose: 650 mg Albuterol/Ipratropium (Duoneb -) 1 amp NEB Q6H PRN PRN Reason: WHEEZING Last Admin: 06/27/17 08:14 Dose: 1 amp Allopurinol (Zyloprim -) 100 mg PO DAILY [facility] Last Admin: 06/27/17 10:09 Dose: 100 mg Ascorbic Acid (Vitamin C -) 500 mg PO DAILY [facility] Last Admin: 06/27/17 10:05 Dose: 500 mg Bisacodyl (Dulcolax -) 10 mg PO [facility] Last Admin: 06/26/17 21:26 Dose: 10 mg Budesonide/Formoterol Fumarate (Symbicort 160/4.5mcg -) 1 puff IH DAILY [facility] Last Admin: 06/27/17 10:09 Dose: 1 puff Carvedilol (Coreg -) 25 mg PO DAILY [facility] Last Admin: 06/27/17 10:05 Dose: 25 mg Clindamycin HCl (Cleocin -) 300 mg PO Q6HPO [facility] Docusate Sodium (Colace -) 300 mg PO [facility] Last Admin: 06/26/17 21:27 Dose: 300 mg Epoetin [place] (Procrit -) 10,000 unit SQ MoWeFr@1000 [facility] Last Admin: 06/27/17 12:36 Dose: 10,000 unit Ergocalciferol (Drisdol -) 50,000 unit PO We@1000 [facility] Folic Acid (Folic Acid -) 1 mg PO DAILY [facility] Last Admin: 06/27/17 10:05 Dose: 1 mg Gabapentin (Neurontin -) 100 mg PO TID [facility] Last Admin: 06/27/17 05:51 Dose: 100 mg Glycerin (Glycerin Suppository Adult -) 1 each RC DAILY [facility] Last Admin: 06/27/17 10:09 Dose: Not Given Guaifenesin (Mucinex -) 600 mg PO DAILY [facility] Last Admin: 06/27/17 10:06 Dose: 600 mg Ertapenem 0.5 gm/ Sodium (Chloride) 100 mls @ 200 mls/hr IVPB DAILY [facility] PRN Reason: Protocol Last Admin: 06/27/17 12:36 Dose: 200 mls/hr Insulin Aspart (Novolog Vial Sliding Scale -) 1 vial SQ HS [facility] PRN Reason: Protocol Last Admin: 06/26/17 21:27 Dose: Not Given Insulin Aspart (Novolog Vial Sliding Scale -) 1 vial SQ TIDAC [facility] PRN Reason: Protocol Last Admin: 06/27/17 12:27 Dose: Not Given Insulin Detemir (Levemir Vial) 33 units SQ DAILY@0700 [facility] Last Admin: 06/27/17 06:04 Dose: Not Given Isosorbide Mononitrate (Imdur -) 60 mg PO DAILY [facility] Last Admin: 06/27/17 10:05 Dose: 60 mg Lactulose (Cephulac (Oral Use)) 30 gm PO HS [facility] Last Admin: 06/26/17 21:32 Dose: Not Given Magnesium Hydroxide (Milk Of Magnesia -) 15 ml PO Q3D@1000 [facility] Last Admin: 06/26/17 09:39 Dose: 15 ml Multivitamins/Minerals (Theragran-M) 1 each PO DAILY [facility] Last Admin: 06/27/17 10:06 Dose: 1 each Nifedipine (Procardia Xl -) 90 mg PO DAILY [facility] Last Admin: 06/27/17 10:08 Dose: 90 mg Oxycodone HCl (Roxicodone -) 5 mg PO TID PRN PRN Reason: PAIN LEVEL 6-10 Last Admin: 06/27/17 05:50 Dose: 5 mg Polyethylene Glycol (Miralax (For Daily Use) -) 17 gm PO DAILY [facility] Last Admin: 06/27/17 10:07 Dose: 17 gm Polysaccharide Iron Complex (Niferex-150 -) 150 mg PO DAILY [facility] Last Admin: 06/27/17 10:08 Dose: 150 mg Ranitidine HCl (Zantac -) 150 mg PO HS [facility] Last Admin: 06/26/17 21:26 Dose: 150 mg Senna (Senna -) 2 tab PO HS [facility] Last Admin: 06/26/17 21:26 Dose: 2 tab Torsemide (Demadex -) 80 mg PO DAILY [facility] Last Admin: 06/27/17 10:06 Dose: 80 mg - Objective Vital Signs: Vital Signs Temperature 97.8 F 06/27/17 06:00 Pulse Rate 66 06/27/17 06:00 Respiratory Rate 18 06/27/17 06:00 Blood Pressure 136/69 06/27/17 06:00 O2 Sat by Pulse Oximetry (%) 98 06/26/17 22:00 Constitutional: Yes: No Distress, Calm Neck: Yes: Supple Cardiovascular: Yes: Regular Rate and Rhythm Respiratory: Yes: Diminished. No: CTA Bilaterally Gastrointestinal: Yes: Soft, Abdomen, Obese Neurological: Yes: Alert Labs: CBC, BMP 06/27/17 05:35 06/27/17 05:35 INR, PTT INR 3.10 (0.82-1.09) H 06/25/17 07:00 Problem List - Problems (1) GI bleed Code(s): K92.2 - GASTROINTESTINAL HEMORRHAGE, UNSPECIFIED (2) Morbid obesity Code(s): E66.01 - MORBID (SEVERE) OBESITY DUE TO EXCESS CALORIES (3) Afib Code(s): I48.91 - UNSPECIFIED ATRIAL FIBRILLATION Qualifiers: Atrial fibrillation type: persistent Qualified Code(s): I48.1 - Persistent atrial fibrillation Assessment/Plan transfuse when necessary Stool for occult blood positive on hold Coumadin-- Continue antibiotics Cultures noted. Isolation precautions Will follow
[2017-06-27] MEDS: ACETAMINOPHEN 325 MG TABLET (FP) PO PRN (15:01)
--- NOTE | 2017-06-27 15:43 | PATH ---
Surgical Pathology Report Patient Name: GEGE HAM Med. Rec. #: [id number] /Age/Gender: 1945 (Age: 71) / F Account: [id number] Location: [facility] MED/SURG Taken: 06/24/2017 Received: 06/24/2017 Reported: 06/27/2017 Physicians: John Castillo DPM Specimen(s) Received TOE NAIL (LEFT BIG TOE) Clinical History Morbidly obese 71 year old female with painful ingrown toenail to left lateral big toe Final Diagnosis TOE NAIL, BIG TOE, LEFT, EXCISION: NAIL PLATE AND UNDERLYING EPITHELIUM. Electronically Signed Yessica Joe M.D. Gross Description Received in formalin labeled with the patient's name and indicated on the requisition to be a toenail, is a 1.5 x 0.4 x 0.1 cm griffith, irregular portion of unguis. The specimen is bisected and entirely submitted in one cassette. /06/24/2017 [place]udi/06/24/2017
--- NOTE | 2017-06-27 17:22 | PN ---
Progress Note, Physician History of Present Illness: Pt seen and examined at bedside. She is awake and alert. She says that she feels better today. - Current Medication List Current Medications: Active Medications Acetaminophen (Tylenol -) 650 mg PO Q6H PRN PRN Reason: fever Last Admin: 06/27/17 15:01 Dose: 650 mg Albuterol/Ipratropium (Duoneb -) 1 amp NEB Q6H PRN PRN Reason: WHEEZING Last Admin: 06/27/17 08:14 Dose: 1 amp Allopurinol (Zyloprim -) 100 mg PO DAILY [facility] Last Admin: 06/27/17 10:09 Dose: 100 mg Ascorbic Acid (Vitamin C -) 500 mg PO DAILY [facility] Last Admin: 06/27/17 10:05 Dose: 500 mg Bisacodyl (Dulcolax -) 10 mg PO [facility] Last Admin: 06/26/17 21:26 Dose: 10 mg Budesonide/Formoterol Fumarate (Symbicort 160/4.5mcg -) 1 puff IH DAILY [facility] Last Admin: 06/27/17 10:09 Dose: 1 puff Carvedilol (Coreg -) 25 mg PO DAILY [facility] Last Admin: 06/27/17 10:05 Dose: 25 mg Clindamycin HCl (Cleocin -) 300 mg PO Q6HPO [facility] Docusate Sodium (Colace -) 300 mg PO [facility] Last Admin: 06/26/17 21:27 Dose: 300 mg Epoetin [place] (Procrit -) 10,000 unit SQ MoWeFr@1000 [facility] Last Admin: 06/27/17 12:36 Dose: 10,000 unit Ergocalciferol (Drisdol -) 50,000 unit PO We@1000 [facility] Folic Acid (Folic Acid -) 1 mg PO DAILY [facility] Last Admin: 06/27/17 10:05 Dose: 1 mg Gabapentin (Neurontin -) 100 mg PO TID [facility] Last Admin: 06/27/17 15:01 Dose: 100 mg Glycerin (Glycerin Suppository Adult -) 1 each RC DAILY [facility] Last Admin: 06/27/17 10:09 Dose: Not Given Guaifenesin (Mucinex -) 600 mg PO DAILY [facility] Last Admin: 06/27/17 10:06 Dose: 600 mg Ertapenem 0.5 gm/ Sodium (Chloride) 100 mls @ 200 mls/hr IVPB DAILY [facility] PRN Reason: Protocol Last Admin: 06/27/17 12:36 Dose: 200 mls/hr Insulin Aspart (Novolog Vial Sliding Scale -) 1 vial SQ HS [facility] PRN Reason: Protocol Last Admin: 06/26/17 21:27 Dose: Not Given Insulin Aspart (Novolog Vial Sliding Scale -) 1 vial SQ TIDAC [facility] PRN Reason: Protocol Last Admin: 06/27/17 12:27 Dose: Not Given Insulin Detemir (Levemir Vial) 33 units SQ DAILY@0700 [facility] Last Admin: 06/27/17 06:04 Dose: Not Given Isosorbide Mononitrate (Imdur -) 60 mg PO DAILY [facility] Last Admin: 06/27/17 10:05 Dose: 60 mg Lactulose (Cephulac (Oral Use)) 30 gm PO HS [facility] Last Admin: 06/26/17 21:32 Dose: Not Given Magnesium Hydroxide (Milk Of Magnesia -) 15 ml PO Q3D@1000 [facility] Last Admin: 06/26/17 09:39 Dose: 15 ml Multivitamins/Minerals (Theragran-M) 1 each PO DAILY [facility] Last Admin: 06/27/17 10:06 Dose: 1 each Nifedipine (Procardia Xl -) 90 mg PO DAILY [facility] Last Admin: 06/27/17 10:08 Dose: 90 mg Oxycodone HCl (Roxicodone -) 5 mg PO TID PRN PRN Reason: PAIN LEVEL 6-10 Last Admin: 06/27/17 15:01 Dose: 5 mg Polyethylene Glycol (Miralax (For Daily Use) -) 17 gm PO DAILY [facility] Last Admin: 06/27/17 10:07 Dose: 17 gm Polysaccharide Iron Complex (Niferex-150 -) 150 mg PO DAILY [facility] Last Admin: 06/27/17 10:08 Dose: 150 mg Ranitidine HCl (Zantac -) 150 mg PO HS [facility] Last Admin: 06/26/17 21:26 Dose: 150 mg Senna (Senna -) 2 tab PO HS [facility] Last Admin: 06/26/17 21:26 Dose: 2 tab Torsemide (Demadex -) 80 mg PO DAILY [facility] Last Admin: 06/27/17 10:06 Dose: 80 mg - Objective Vital Signs: Vital Signs Temperature 97.8 F 06/27/17 14:49 Pulse Rate 66 06/27/17 14:49 Respiratory Rate 20 06/27/17 14:49 Blood Pressure 135/58 06/27/17 14:49 O2 Sat by Pulse Oximetry (%) 98 06/26/17 22:00 Constitutional: Yes: Calm Eyes: Yes: Conjunctiva Clear HENT: Yes: Atraumatic Cardiovascular: Yes: S1, S2 Respiratory: Yes: On Nasal O2 Gastrointestinal: Yes: Soft, Abdomen, Obese Genitourinary: Yes: WNL Musculoskeletal: Yes: WNL Edema: Yes Edema: LLE: 1+, RLE: 1+ Neurological: Yes: Oriented Psychiatric: Yes: Oriented Labs: CBC, BMP 06/27/17 05:35 06/27/17 05:35 INR, PTT INR 3.10 (0.82-1.09) H 06/25/17 07:00 Problem List - Problems (1) GI bleed Code(s): K92.2 - GASTROINTESTINAL HEMORRHAGE, UNSPECIFIED (2) Morbid obesity Code(s): E66.01 - MORBID (SEVERE) OBESITY DUE TO EXCESS CALORIES (3) CHF (congestive heart failure) Code(s): I50.9 - HEART FAILURE, UNSPECIFIED Qualifiers: Qualified Code(s): I50.9 - Heart failure, unspecified (4) CKD (chronic kidney disease) Code(s): N18.9 - CHRONIC KIDNEY DISEASE, UNSPECIFIED Qualifiers: Chronic kidney disease stage: unspecified stage Qualified Code(s): N18.9 - Chronic kidney disease, unspecified Assessment/Plan Current Medications Generic Name Dose Route Start Last Admin Trade Name Freq PRN Reason Stop Dose Admin Acetaminophen 650 mg 06/25/17 18:15 06/27/17 15:01 Tylenol - PO 650 mg Q6H PRN Administration fever Albuterol/Ipratropium 1 amp 06/22/17 21:10 06/27/17 08:14 Duoneb - NEB 1 amp Q6H PRN Administration WHEEZING Allopurinol 100 mg 06/23/17 10:00 06/27/17 10:09 Zyloprim - PO 100 mg DAILY [facility] Administration Ascorbic Acid 500 mg 06/23/17 10:00 06/27/17 10:05 Vitamin C - PO 500 mg DAILY [facility] Administration Bisacodyl 10 mg 06/22/17 22:00 06/26/17 21:26 Dulcolax - PO 10 mg HS [facility] Administration Budesonide/Formoterol Fumarate 1 puff 06/23/17 10:00 06/27/17 10:09 Symbicort 160/4.5mcg - IH 1 puff DAILY [facility] Administration Carvedilol 25 mg 06/23/17 10:00 06/27/17 10:05 Coreg - PO 25 mg DAILY [facility] Administration Clindamycin HCl 300 mg 06/27/17 18:00 Cleocin - PO Q6HPO [facility] Docusate Sodium 300 mg 06/22/17 22:00 06/26/17 21:27 Colace - PO 300 mg HS [facility] Administration Epoetin [place] 10,000 unit 06/24/17 10:00 06/27/17 12:36 Procrit - SQ 10,000 unit MoWeFr@1000 [facility] Administration Ergocalciferol 50,000 unit 06/29/17 10:00 Drisdol - PO We@1000 [facility] Folic Acid 1 mg 06/23/17 10:00 06/27/17 10:05 Folic Acid - PO 1 mg DAILY [facility] Administration Gabapentin 100 mg 06/22/17 22:00 06/27/17 15:01 Neurontin - PO 100 mg TID [facility] Administration Glycerin 1 each 06/22/17 22:15 06/27/17 10:09 Glycerin Suppository Adult - RC Not Given DAILY [facility] Guaifenesin 600 mg 06/23/17 10:00 06/27/17 10:06 Mucinex - PO 600 mg DAILY [facility] Administration Ertapenem 0.5 gm/ Sodium 100 mls @ 200 mls/hr 06/27/17 12:15 06/27/17 12:36 Chloride IVPB 200 mls/hr DAILY [facility] Administration Protocol Insulin Aspart 1 vial 06/22/17 22:00 06/26/17 21:27 Novolog Vial Sliding Scale - SQ Not Given HS [facility] Protocol Insulin Aspart 1 vial 06/23/17 07:00 06/27/17 12:27 Novolog Vial Sliding Scale - SQ Not Given TIDAC [facility] Protocol Insulin Detemir 33 units 06/23/17 07:00 06/27/17 06:04 Levemir Vial SQ Not Given DAILY@0700 [facility] Isosorbide Mononitrate 60 mg 06/23/17 10:00 06/27/17 10:05 Imdur - PO 60 mg DAILY [facility] Administration Lactulose 30 gm 06/22/17 22:00 06/26/17 21:32 Cephulac (Oral Use) PO Not Given HS [facility] Magnesium Hydroxide 15 ml 06/23/17 10:00 06/26/17 09:39 Milk Of Magnesia - PO 15 ml Q3D@1000 [facility] Administration Multivitamins/Minerals 1 each 06/23/17 10:00 06/27/17 10:06 Theragran-M PO 1 each DAILY [facility] Administration Nifedipine 90 mg 06/23/17 10:00 06/27/17 10:08 Procardia Xl - PO 90 mg DAILY [facility] Administration Oxycodone HCl 5 mg 06/26/17 12:49 06/27/17 15:01 Roxicodone - PO 5 mg TID PRN Administration PAIN LEVEL 6-10 Polyethylene Glycol 17 gm 06/23/17 10:00 06/27/17 10:07 Miralax (For Daily Use) - PO 17 gm DAILY [facility] Administration Polysaccharide Iron Complex 150 mg 06/23/17 10:00 06/27/17 10:08 Niferex-150 - PO 150 mg DAILY [facility] Administration Ranitidine HCl 150 mg 06/22/17 22:00 06/26/17 21:26 Zantac - PO 150 mg HS [facility] Administration Senna 2 tab 06/22/17 22:00 06/26/17 21:26 Senna - PO 2 tab HS [facility] Administration Torsemide 80 mg 06/23/17 10:00 06/27/17 10:06 Demadex - PO 80 mg DAILY [facility] Administration Impression 1. CKD 2. obesity 3. hyperlipidemia 4. HTN 5. DM 6. CHF 7. CAD 8. anemia 9. a-fib 10. iron deficiency Plan - cont to monitor renal function - cont with torsemide - fluids stopped - epogen for anemia - will likely need HD in near future - will follow Dr Capps
[2017-06-27] MEDS: CLINDAMYCIN HCL 150 MG CAPSULE (FP) PO SCH ×2 (18:50→23:25)
[2017-06-27] MEDS: DOCUSATE SODIUM 100 MG CAPSULE (FP) PO SCH (23:24)
[2017-06-27] MEDS: SENNOSIDES 8.6MG TABLET (FP) PO SCH (23:24)
[2017-06-27] MEDS: RANITIDINE HCL 150 MG TABLET (FP) PO SCH (23:24)
[2017-06-27] MEDS: BISACODYL 5 MG TABLET.DR (FP) PO SCH (23:24)
[2017-06-27] MEDS: LACTULOSE 20 GM/30 ML UDC (FOR ORAL USE ONLY) PO SCH (23:25)
[2017-06-28] MEDS ORDERED: INSULIN (NOVOLOG) ASPART 100 UNITS/ML 10ML VIAL ONE ×2 (06:26→11:20)
[2017-06-28] MEDS: GABAPENTIN 100 MG CAPSULE (FP) PO SCH ×3 (06:47→22:54)
[2017-06-28] MEDS: INSULIN DETEMIR 100 UNITS/ML MDV SQ SCH (06:47)
[2017-06-28] MEDS: CLINDAMYCIN HCL 150 MG CAPSULE (FP) PO SCH ×4 (06:47→22:57)
[2017-06-28] MEDS: INSULIN SLIDING SCALE (NOVOLOG) 1 VIAL SQ SCH ×4 (06:48→22:54)
[2017-06-28] MEDS: ALBUTEROL SO4 2.5/IPRATROPIUM 0.5 INH SOL 3 ML VIAL.NEB. NEB PRN ×3 (08:53→21:40)
[2017-06-28] MEDS: FOLIC ACID 1 MG TABLET (FP) PO SCH (11:31)
[2017-06-28] MEDS: TORSEMIDE 20 MG TABLET (FP) PO SCH (11:32)
[2017-06-28] MEDS: MULTIVITAMINS THER W-MINERALS COMBO TABLET (FP) PO SCH (11:32)
[2017-06-28] MEDS: guaiFENesin 600 MG TABLET.ER (FP) PO SCH (11:33)
[2017-06-28] MEDS: ISOSORBIDE MONONITRATE 60 MG TAB.SR.24H (FP) PO SCH (11:33)
[2017-06-28] MEDS: ASCORBIC ACID 500 MG TABLET (FP) PO SCH (11:33)
[2017-06-28] MEDS: BUDESONIDE/FORMETEROL FUMARATE 160/4.5 mcg INHALER IH SCH (11:35)
[2017-06-28] MEDS: ALLOPURINOL 100 MG TABLET (FP) PO SCH (11:35)
[2017-06-28] MEDS: CARVEDILOL 25 MG TABLET (FP) PO SCH (11:36)
[2017-06-28] MEDS: ERTAPENEM SODIUM 0.5 GM in SODIUM CHLORIDE 100 ML IVPB SCH (11:36)
[2017-06-28] MEDS: IRON POLYSACCHARIDES 150 MG CAPSULE PO SCH (11:36)
[2017-06-28] MEDS: NIFEdipine E.R. 90 MG TABLET (FP) PO SCH (11:36)
--- NOTE | 2017-06-28 12:25 | PN ---
Progress Note (short form) - Note Progress Note: Patient is a morbidly obese female s/p ingrown nail procedure. No new complaints. Tmax 97.9 nvs decreased, +resolved ingrown lateral nail fold left, -drainage, -cellulitis , -mal odor, -tender, -pus, +possible mrsa, +strep, wbc=8.5, xray negative for om, ingrown toe nail resolved cellulitis Continue abx as per id, read and appreciated note. Will follow for localized cellulitis and wound care. Wound culture read and appreciated. Will follow till dc.
[2017-06-28] MEDS: GLYCERIN 1 RECTAL SUPPOSITORY, ADULT RC SCH (12:29)
[2017-06-28] MEDS: POLYETHYLENE GLYCOL 3350 119 GM BTL PO SCH (12:33)
--- NOTE | 2017-06-28 12:47 | PN ---
Progress Note, Physician Chief Complaint: no complaints wants to go home - Current Medication List Current Medications: Active Medications Acetaminophen (Tylenol -) 650 mg PO Q6H PRN PRN Reason: fever Last Admin: 06/27/17 15:01 Dose: 650 mg Albuterol/Ipratropium (Duoneb -) 1 amp NEB Q6H PRN PRN Reason: WHEEZING Last Admin: 06/28/17 08:53 Dose: 1 amp Allopurinol (Zyloprim -) 100 mg PO DAILY [facility] Last Admin: 06/28/17 11:35 Dose: 100 mg Ascorbic Acid (Vitamin C -) 500 mg PO DAILY [facility] Last Admin: 06/28/17 11:33 Dose: 500 mg Bisacodyl (Dulcolax -) 10 mg PO [facility] Last Admin: 06/27/17 23:24 Dose: 10 mg Budesonide/Formoterol Fumarate (Symbicort 160/4.5mcg -) 1 puff IH DAILY [facility] Last Admin: 06/28/17 11:35 Dose: 1 puff Carvedilol (Coreg -) 25 mg PO DAILY [facility] Last Admin: 06/28/17 11:36 Dose: 25 mg Clindamycin HCl (Cleocin -) 300 mg PO Q6HPO [facility] Last Admin: 06/28/17 11:33 Dose: 300 mg Docusate Sodium (Colace -) 300 mg PO [facility] Last Admin: 06/27/17 23:24 Dose: 300 mg Epoetin [place] (Procrit -) 10,000 unit SQ MoWeFr@1000 [facility] Last Admin: 06/27/17 12:36 Dose: 10,000 unit Ergocalciferol (Drisdol -) 50,000 unit PO We@1000 [facility] Folic Acid (Folic Acid -) 1 mg PO DAILY [facility] Last Admin: 06/28/17 11:31 Dose: 1 mg Gabapentin (Neurontin -) 100 mg PO TID [facility] Last Admin: 06/28/17 06:47 Dose: 100 mg Glycerin (Glycerin Suppository Adult -) 1 each RC DAILY [facility] Last Admin: 06/28/17 12:29 Dose: Not Given Guaifenesin (Mucinex -) 600 mg PO DAILY [facility] Last Admin: 06/28/17 11:33 Dose: 600 mg Ertapenem 0.5 gm/ Sodium (Chloride) 100 mls @ 200 mls/hr IVPB DAILY [facility] PRN Reason: Protocol Last Admin: 06/28/17 11:36 Dose: 200 mls/hr Insulin Aspart (Novolog Vial Sliding Scale -) 1 vial SQ HS [facility] PRN Reason: Protocol Last Admin: 06/27/17 23:16 Dose: Not Given Insulin Aspart (Novolog Vial Sliding Scale -) 1 vial SQ TIDAC [facility] PRN Reason: Protocol Last Admin: 06/28/17 12:30 Dose: 2 units Insulin Detemir (Levemir Vial) 33 units SQ DAILY@0700 [facility] Last Admin: 06/28/17 06:47 Dose: 33 units Isosorbide Mononitrate (Imdur -) 60 mg PO DAILY [facility] Last Admin: 06/28/17 11:33 Dose: 60 mg Lactulose (Cephulac (Oral Use)) 30 gm PO HS [facility] Last Admin: 06/27/17 23:25 Dose: Not Given Magnesium Hydroxide (Milk Of Magnesia -) 15 ml PO Q3D@1000 [facility] Last Admin: 06/26/17 09:39 Dose: 15 ml Multivitamins/Minerals (Theragran-M) 1 each PO DAILY [facility] Last Admin: 06/28/17 11:32 Dose: 1 each Nifedipine (Procardia Xl -) 90 mg PO DAILY [facility] Last Admin: 06/28/17 11:36 Dose: 90 mg Oxycodone HCl (Roxicodone -) 5 mg PO TID PRN PRN Reason: PAIN LEVEL 6-10 Last Admin: 06/27/17 23:25 Dose: 5 mg Polyethylene Glycol (Miralax (For Daily Use) -) 17 gm PO DAILY [facility] Last Admin: 06/28/17 12:33 Dose: Not Given Polysaccharide Iron Complex (Niferex-150 -) 150 mg PO DAILY [facility] Last Admin: 06/28/17 11:36 Dose: 150 mg Ranitidine HCl (Zantac -) 150 mg PO HS [facility] Last Admin: 06/27/17 23:24 Dose: 150 mg Senna (Senna -) 2 tab PO HS [facility] Last Admin: 06/27/17 23:24 Dose: 2 tab Torsemide (Demadex -) 80 mg PO DAILY [facility] Last Admin: 06/28/17 11:32 Dose: 80 mg - Objective Vital Signs: Vital Signs Temperature 97.9 F 06/28/17 06:18 Pulse Rate 68 06/28/17 06:18 Respiratory Rate 20 06/28/17 06:18 Blood Pressure 162/56 06/28/17 06:18 O2 Sat by Pulse Oximetry (%) 99 06/27/17 22:00 Constitutional: Yes: No Distress Cardiovascular: Yes: Pulse Irregular Respiratory: Yes: Diminished Gastrointestinal: Yes: Normal Bowel Sounds, Soft, Abdomen, Obese. No: Tenderness Edema: Yes Edema: LLE: 2+, RLE: 2+ Labs: CBC, BMP 06/27/17 05:35 INR, PTT INR 3.10 (0.82-1.09) H 06/25/17 07:00 Problem List - Problems (1) Severe anemia Code(s): D64.9 - ANEMIA, UNSPECIFIED (2) Acute on chronic renal insufficiency Code(s): N28.9 - DISORDER OF KIDNEY AND URETER, UNSPECIFIED; N18.9 - CHRONIC KIDNEY DISEASE, UNSPECIFIED (3) Afib Code(s): I48.91 - UNSPECIFIED ATRIAL FIBRILLATION Qualifiers: Atrial fibrillation type: persistent Qualified Code(s): I48.1 - Persistent atrial fibrillation (4) Anemia Code(s): D64.9 - ANEMIA, UNSPECIFIED Qualifiers: Anemia type: unspecified type Qualified Code(s): D64.9 - Anemia, unspecified (5) Anemia requiring transfusions Code(s): D64.9 - ANEMIA, UNSPECIFIED (6) CHF (congestive heart failure) Code(s): I50.9 - HEART FAILURE, UNSPECIFIED Assessment/Plan PLAN Received 2 unit8s PRBC so far Will transfuse one more today-- baseline around 8 pt refuses endoscopic interventions Continue with Couamdin per INR No active bleeding renal eval noted check BMP today ?vein mapping-- outpt spoke with ID-- awaiting finalculture results- R/o ESBL DVT px-- Warfarin
--- NOTE | 2017-06-28 13:28 | PN ---
Progress Note, Physician History of Present Illness: no complaints patient states she is doing well - Current Medication List Current Medications: Active Medications Acetaminophen (Tylenol -) 650 mg PO Q6H PRN PRN Reason: fever Last Admin: 06/27/17 15:01 Dose: 650 mg Albuterol/Ipratropium (Duoneb -) 1 amp NEB Q6H PRN PRN Reason: WHEEZING Last Admin: 06/28/17 08:53 Dose: 1 amp Allopurinol (Zyloprim -) 100 mg PO DAILY [facility] Last Admin: 06/28/17 11:35 Dose: 100 mg Ascorbic Acid (Vitamin C -) 500 mg PO DAILY [facility] Last Admin: 06/28/17 11:33 Dose: 500 mg Bisacodyl (Dulcolax -) [address] [facility] Last Admin: 06/27/17 23:24 Dose: 10 mg Budesonide/Formoterol Fumarate (Symbicort 160/4.5mcg -) 1 puff IH DAILY [facility] Last Admin: 06/28/17 11:35 Dose: 1 puff Carvedilol (Coreg -) 25 mg PO DAILY [facility] Last Admin: 06/28/17 11:36 Dose: 25 mg Clindamycin HCl (Cleocin -) 300 mg PO Q6HPO [facility] Last Admin: 06/28/17 11:33 Dose: 300 mg Docusate Sodium (Colace -) [address] [facility] Last Admin: 06/27/17 23:24 Dose: 300 mg Epoetin [place] (Procrit -) 10,000 unit SQ MoWeFr@1000 [facility] Last Admin: 06/27/17 12:36 Dose: 10,000 unit Ergocalciferol (Drisdol -) 50,000 unit PO We@1000 [facility] Folic Acid (Folic Acid -) 1 mg PO DAILY [facility] Last Admin: 06/28/17 11:31 Dose: 1 mg Gabapentin (Neurontin -) 100 mg PO TID [facility] Last Admin: 06/28/17 06:47 Dose: 100 mg Glycerin (Glycerin Suppository Adult -) 1 each RC DAILY [facility] Last Admin: 06/28/17 12:29 Dose: Not Given Guaifenesin (Mucinex -) 600 mg PO DAILY [facility] Last Admin: 06/28/17 11:33 Dose: 600 mg Ertapenem 0.5 gm/ Sodium (Chloride) 100 mls @ 200 mls/hr IVPB DAILY [facility] PRN Reason: Protocol Last Admin: 06/28/17 11:36 Dose: 200 mls/hr Insulin Aspart (Novolog Vial Sliding Scale -) 1 vial SQ HS [facility] PRN Reason: Protocol Last Admin: 06/27/17 23:16 Dose: Not Given Insulin Aspart (Novolog Vial Sliding Scale -) 1 vial SQ TIDAC [facility] PRN Reason: Protocol Last Admin: 06/28/17 12:30 Dose: 2 units Insulin Detemir (Levemir Vial) 33 units SQ DAILY@0700 [facility] Last Admin: 06/28/17 06:47 Dose: 33 units Isosorbide Mononitrate (Imdur -) 60 mg PO DAILY [facility] Last Admin: 06/28/17 11:33 Dose: 60 mg Lactulose (Cephulac (Oral Use)) 30 gm PO HS [facility] Last Admin: 06/27/17 23:25 Dose: Not Given Magnesium Hydroxide (Milk Of Magnesia -) 15 ml PO Q3D@1000 [facility] Last Admin: 06/26/17 09:39 Dose: 15 ml Multivitamins/Minerals (Theragran-M) 1 each PO DAILY [facility] Last Admin: 06/28/17 11:32 Dose: 1 each Nifedipine (Procardia Xl -) 90 mg PO DAILY [facility] Last Admin: 06/28/17 11:36 Dose: 90 mg Oxycodone HCl (Roxicodone -) 5 mg PO TID PRN PRN Reason: PAIN LEVEL 6-10 Last Admin: 06/27/17 23:25 Dose: 5 mg Polyethylene Glycol (Miralax (For Daily Use) -) 17 gm PO DAILY [facility] Last Admin: 06/28/17 12:33 Dose: Not Given Polysaccharide Iron Complex (Niferex-150 -) 150 mg PO DAILY [facility] Last Admin: 06/28/17 11:36 Dose: 150 mg Ranitidine HCl (Zantac -) 150 mg PO HS [facility] Last Admin: 06/27/17 23:24 Dose: 150 mg Senna (Senna -) 2 tab PO HS [facility] Last Admin: 06/27/17 23:24 Dose: 2 tab Torsemide (Demadex -) 80 mg PO DAILY [facility] Last Admin: 06/28/17 11:32 Dose: 80 mg - Objective Vital Signs: Vital Signs Temperature 97.9 F 06/28/17 06:18 Pulse Rate 68 06/28/17 06:18 Respiratory Rate 20 06/28/17 06:18 Blood Pressure 162/56 06/28/17 06:18 O2 Sat by Pulse Oximetry (%) 99 06/27/17 22:00 Constitutional: Yes: No Distress, Calm, Obese Neck: Yes: Supple Cardiovascular: Yes: S1, S2 Respiratory: Yes: Regular, CTA Bilaterally Gastrointestinal: Yes: Normal Bowel Sounds, Soft Musculoskeletal: Yes: WNL Extremities: Yes: Other Wound/Incision: Yes: Dressing Dry and Intact Neurological: Yes: Alert, Oriented Psychiatric: Yes: Alert, Oriented Labs: CBC, BMP 06/27/17 05:35 INR, PTT INR 3.10 (0.82-1.09) H 06/25/17 07:00 - ....Imaging X-ray: Report Reviewed, Image Reviewed Assessment/Plan Problem List - Problems (1) GI bleed Code(s): K92.2 - GASTROINTESTINAL HEMORRHAGE, UNSPECIFIED (2) Morbid obesity Code(s): E66.01 - MORBID (SEVERE) OBESITY DUE TO EXCESS CALORIES (3) Afib Code(s): I48.91 - UNSPECIFIED ATRIAL FIBRILLATION Qualifiers: Atrial fibrillation type: persistent Qualified Code(s): I48.1 - Persistent atrial fibrillation 4 uti 5 renal failure 6 wound infection 7 mrsa plan continue current abx await for sensitivities on other organisms once we have that final abx plan can be made rest as per primary team
[2017-06-28 13:29] LABS: ANION GAP 6 (8-16); BLOOD UREA NITROGEN 93 mg/dL (7-18); CALCIUM 7.6 mg/dL (8.5-10.1); CHLORIDE 107 mmol/L (98-107); CO2 33 mmol/L (21-32); CREATININE 3.5 mg/dL (0.55-1.02); GLUCOSE,RANDOM 149 mg/dL (74-106); POTASSIUM 4.3 mmol/L (3.5-5.1); SODIUM 146 mmol/L (136-145)
--- NOTE | 2017-06-28 16:25 | PN ---
Progress Note, Physician History of Present Illness: Pt seen and examined at bedside. She is awake and alert. She denies shortness of breath. - Current Medication List Current Medications: Active Medications Acetaminophen (Tylenol -) 650 mg PO Q6H PRN PRN Reason: fever Last Admin: 06/27/17 15:01 Dose: 650 mg Albuterol/Ipratropium (Duoneb -) 1 amp NEB Q6H PRN PRN Reason: WHEEZING Last Admin: 06/28/17 08:53 Dose: 1 amp Allopurinol (Zyloprim -) 100 mg PO DAILY [facility] Last Admin: 06/28/17 11:35 Dose: 100 mg Ascorbic Acid (Vitamin C -) 500 mg PO DAILY [facility] Last Admin: 06/28/17 11:33 Dose: 500 mg Bisacodyl (Dulcolax -) 10 mg PO [facility] Last Admin: 06/27/17 23:24 Dose: 10 mg Budesonide/Formoterol Fumarate (Symbicort 160/4.5mcg -) 1 puff IH DAILY [facility] Last Admin: 06/28/17 11:35 Dose: 1 puff Carvedilol (Coreg -) 25 mg PO DAILY [facility] Last Admin: 06/28/17 11:36 Dose: 25 mg Clindamycin HCl (Cleocin -) 300 mg PO Q6HPO [facility] Last Admin: 06/28/17 11:33 Dose: 300 mg Docusate Sodium (Colace -) 300 mg PO [facility] Last Admin: 06/27/17 23:24 Dose: 300 mg Epoetin [place] (Procrit -) 10,000 unit SQ MoWeFr@1000 [facility] Last Admin: 06/27/17 12:36 Dose: 10,000 unit Ergocalciferol (Drisdol -) 50,000 unit PO We@1000 [facility] Folic Acid (Folic Acid -) 1 mg PO DAILY [facility] Last Admin: 06/28/17 11:31 Dose: 1 mg Gabapentin (Neurontin -) 100 mg PO TID [facility] Last Admin: 06/28/17 13:44 Dose: 100 mg Glycerin (Glycerin Suppository Adult -) 1 each RC DAILY [facility] Last Admin: 06/28/17 12:29 Dose: Not Given Guaifenesin (Mucinex -) 600 mg PO DAILY [facility] Last Admin: 06/28/17 11:33 Dose: 600 mg Ertapenem 0.5 gm/ Sodium (Chloride) 100 mls @ 200 mls/hr IVPB DAILY [facility] PRN Reason: Protocol Last Admin: 06/28/17 11:36 Dose: 200 mls/hr Insulin Aspart (Novolog Vial Sliding Scale -) 1 vial SQ HS [facility] PRN Reason: Protocol Last Admin: 06/27/17 23:16 Dose: Not Given Insulin Aspart (Novolog Vial Sliding Scale -) 1 vial SQ TIDAC [facility] PRN Reason: Protocol Last Admin: 06/28/17 12:30 Dose: 2 units Insulin Detemir (Levemir Vial) 33 units SQ DAILY@0700 [facility] Last Admin: 06/28/17 06:47 Dose: 33 units Isosorbide Mononitrate (Imdur -) 60 mg PO DAILY [facility] Last Admin: 06/28/17 11:33 Dose: 60 mg Lactulose (Cephulac (Oral Use)) 30 gm PO HS [facility] Last Admin: 06/27/17 23:25 Dose: Not Given Magnesium Hydroxide (Milk Of Magnesia -) 15 ml PO Q3D@1000 [facility] Last Admin: 06/26/17 09:39 Dose: 15 ml Multivitamins/Minerals (Theragran-M) 1 each PO DAILY [facility] Last Admin: 06/28/17 11:32 Dose: 1 each Nifedipine (Procardia Xl -) 90 mg PO DAILY [facility] Last Admin: 06/28/17 11:36 Dose: 90 mg Oxycodone HCl (Roxicodone -) 5 mg PO TID PRN PRN Reason: PAIN LEVEL 6-10 Last Admin: 06/27/17 23:25 Dose: 5 mg Polyethylene Glycol (Miralax (For Daily Use) -) 17 gm PO DAILY [facility] Last Admin: 06/28/17 12:33 Dose: Not Given Polysaccharide Iron Complex (Niferex-150 -) 150 mg PO DAILY [facility] Last Admin: 06/28/17 11:36 Dose: 150 mg Ranitidine HCl (Zantac -) 150 mg PO HS [facility] Last Admin: 06/27/17 23:24 Dose: 150 mg Senna (Senna -) 2 tab PO HS [facility] Last Admin: 06/27/17 23:24 Dose: 2 tab Torsemide (Demadex -) 80 mg PO DAILY [facility] Last Admin: 06/28/17 11:32 Dose: 80 mg - Objective Vital Signs: Vital Signs Temperature 98.9 F 06/28/17 15:10 Pulse Rate 90 06/28/17 15:10 Respiratory Rate 18 06/28/17 15:10 Blood Pressure 130/78 06/28/17 15:10 O2 Sat by Pulse Oximetry (%) 99 06/27/17 22:00 Constitutional: Yes: Calm Eyes: Yes: Conjunctiva Clear HENT: Yes: Atraumatic Neck: Yes: Supple Cardiovascular: Yes: S1, S2 Respiratory: Yes: On Nasal O2 Gastrointestinal: Yes: Soft, Abdomen, Obese Genitourinary: Yes: WNL Musculoskeletal: Yes: WNL Edema: Yes Edema: LLE: 1+, RLE: 1+ Integumentary: Yes: Venous Stasis Changes Neurological: Yes: Oriented Psychiatric: Yes: Oriented Labs: CBC, BMP 06/27/17 05:35 06/28/17 12:35 INR, PTT INR 3.10 (0.82-1.09) H 06/25/17 07:00 Problem List - Problems (1) GI bleed Code(s): K92.2 - GASTROINTESTINAL HEMORRHAGE, UNSPECIFIED (2) Morbid obesity Code(s): E66.01 - MORBID (SEVERE) OBESITY DUE TO EXCESS CALORIES (3) CHF (congestive heart failure) Code(s): I50.9 - HEART FAILURE, UNSPECIFIED (4) CKD (chronic kidney disease) Code(s): N18.9 - CHRONIC KIDNEY DISEASE, UNSPECIFIED Qualifiers: Chronic kidney disease stage: unspecified stage Qualified Code(s): N18.9 - Chronic kidney disease, unspecified Assessment/Plan Current Medications Generic Name Dose Route Start Last Admin Trade Name Freq PRN Reason Stop Dose Admin Acetaminophen 650 mg 06/25/17 18:15 06/27/17 15:01 Tylenol - PO 650 mg Q6H PRN Administration fever Albuterol/Ipratropium 1 amp 06/22/17 21:10 06/28/17 08:53 Duoneb - NEB 1 amp Q6H PRN Administration WHEEZING Allopurinol 100 mg 06/23/17 10:00 06/28/17 11:35 Zyloprim - PO 100 mg DAILY [facility] Administration Ascorbic Acid 500 mg 06/23/17 10:00 06/28/17 11:33 Vitamin C - PO 500 mg DAILY [facility] Administration Bisacodyl 10 mg 06/22/17 22:00 06/27/17 23:24 Dulcolax - PO 10 mg HS [facility] Administration Budesonide/Formoterol Fumarate 1 puff 06/23/17 10:00 06/28/17 11:35 Symbicort 160/4.5mcg - IH 1 puff DAILY [facility] Administration Carvedilol 25 mg 06/23/17 10:00 06/28/17 11:36 Coreg - PO 25 mg DAILY [facility] Administration Clindamycin HCl 300 mg 06/27/17 18:00 06/28/17 11:33 Cleocin - PO 300 mg Q6HPO [facility] Administration Docusate Sodium 300 mg 06/22/17 22:00 06/27/17 23:24 Colace - PO 300 mg HS [facility] Administration Epoetin [place] 10,000 unit 06/24/17 10:00 06/27/17 12:36 Procrit - SQ 10,000 unit MoWeFr@1000 [facility] Administration Ergocalciferol 50,000 unit 06/29/17 10:00 Drisdol - PO We@1000 [facility] Folic Acid 1 mg 06/23/17 10:00 06/28/17 11:31 Folic Acid - PO 1 mg DAILY [facility] Administration Gabapentin 100 mg 06/22/17 22:00 06/28/17 13:44 Neurontin - PO 100 mg TID [facility] Administration Glycerin 1 each 06/22/17 22:15 06/28/17 12:29 Glycerin Suppository Adult - RC Not Given DAILY [facility] Guaifenesin 600 mg 06/23/17 10:00 06/28/17 11:33 Mucinex - PO 600 mg DAILY [facility] Administration Ertapenem 0.5 gm/ Sodium 100 mls @ 200 mls/hr 06/27/17 12:15 06/28/17 11:36 Chloride IVPB 200 mls/hr DAILY [facility] Administration Protocol Insulin Aspart 1 vial 06/22/17 22:00 06/27/17 23:16 Novolog Vial Sliding Scale - SQ Not Given HS [facility] Protocol Insulin Aspart 1 vial 06/23/17 07:00 06/28/17 12:30 Novolog Vial Sliding Scale - SQ 2 units TIDAC [facility] Administration Protocol Insulin Detemir 33 units 06/23/17 07:00 06/28/17 06:47 Levemir Vial SQ 33 units DAILY@0700 [facility] Administration Isosorbide Mononitrate 60 mg 06/23/17 10:00 06/28/17 11:33 Imdur - PO 60 mg DAILY [facility] Administration Lactulose 30 gm 06/22/17 22:00 06/27/17 23:25 Cephulac (Oral Use) PO Not Given HS [facility] Magnesium Hydroxide 15 ml 06/23/17 10:00 06/26/17 09:39 Milk Of Magnesia - PO 15 ml Q3D@1000 [facility] Administration Multivitamins/Minerals 1 each 06/23/17 10:00 06/28/17 11:32 Theragran-M PO 1 each DAILY [facility] Administration Nifedipine 90 mg 06/23/17 10:00 06/28/17 11:36 Procardia Xl - PO 90 mg DAILY [facility] Administration Oxycodone HCl 5 mg 06/26/17 12:49 06/27/17 23:25 Roxicodone - PO 5 mg TID PRN Administration PAIN LEVEL 6-10 Polyethylene Glycol 17 gm 06/23/17 10:00 06/28/17 12:33 Miralax (For Daily Use) - PO Not Given DAILY [facility] Polysaccharide Iron Complex 150 mg 06/23/17 10:00 06/28/17 11:36 Niferex-150 - PO 150 mg DAILY [facility] Administration Ranitidine HCl 150 mg 06/22/17 22:00 06/27/17 23:24 Zantac - PO 150 mg HS [facility] Administration Senna 2 tab 06/22/17 22:00 06/27/17 23:24 Senna - PO 2 tab HS [facility] Administration Torsemide 80 mg 06/23/17 10:00 06/28/17 11:32 Demadex - PO 80 mg DAILY [facility] Administration Impression 1. CKD 2. obesity 3. hyperlipidemia 4. HTN 5. DM 6. CHF 7. CAD 8. anemia 9. a-fib 10. iron deficiency Plan - will need to adjust dose of epogen - cont torsemide - discusse av access with pt, she is refusing now - will likely need HD in near future - will follow Dr Capps
[2017-06-28] MEDS: LACTULOSE 20 GM/30 ML UDC (FOR ORAL USE ONLY) PO SCH (22:50)
[2017-06-28] MEDS: BISACODYL 5 MG TABLET.DR (FP) PO SCH (22:54)
[2017-06-28] MEDS: DOCUSATE SODIUM 100 MG CAPSULE (FP) PO SCH (22:54)
[2017-06-28] MEDS: RANITIDINE HCL 150 MG TABLET (FP) PO SCH (22:55)
[2017-06-28] MEDS: SENNOSIDES 8.6MG TABLET (FP) PO SCH (22:55)
[2017-06-28 23:01] LABS: INR 2.15 (0.82-1.09); PROTHROMBIN TIME (PATIENT) 24.3 SEC (9.98-11.88)
[2017-06-29] MEDS: INSULIN SLIDING SCALE (NOVOLOG) 1 VIAL SQ SCH ×4 (06:37→23:22)
[2017-06-29] MEDS: GABAPENTIN 100 MG CAPSULE (FP) PO SCH ×3 (06:39→23:24)
[2017-06-29] MEDS: CLINDAMYCIN HCL 150 MG CAPSULE (FP) PO SCH ×5 (06:39→23:24)
[2017-06-29] MEDS: INSULIN DETEMIR 100 UNITS/ML MDV SQ SCH (06:39)
[2017-06-29] MEDS: ALBUTEROL SO4 2.5/IPRATROPIUM 0.5 INH SOL 3 ML VIAL.NEB. NEB PRN ×3 (08:34→20:43)
[2017-06-29 08:58] LABS: INR 1.96 (0.82-1.09); PROTHROMBIN TIME (PATIENT) 22.1 SEC (9.98-11.88)
[2017-06-29 09:15] LABS: ANION GAP 9 (8-16); BLOOD UREA NITROGEN 94 mg/dL (7-18); CALCIUM 8.3 mg/dL (8.5-10.1); CHLORIDE 106 mmol/L (98-107); CO2 33 mmol/L (21-32); CREATININE 3.3 mg/dL (0.55-1.02); GLUCOSE,RANDOM 100 mg/dL (74-106); POTASSIUM 4.1 mmol/L (3.5-5.1); SODIUM 148 mmol/L (136-145)
[2017-06-29] MEDS ORDERED: ERGOCALCIFEROL (VITAMIN D2) 50,000 UNIT CAPSULE (FP) PO SCH (10:00)
--- NOTE | 2017-06-29 10:51 | PN ---
Progress Note, Physician History of Present Illness: No events, comfortable. No gross bleeding, melena reported. - Current Medication List Current Medications: Active Medications Acetaminophen (Tylenol -) 650 mg PO Q6H PRN PRN Reason: fever Last Admin: 06/27/17 15:01 Dose: 650 mg Albuterol/Ipratropium (Duoneb -) 1 amp NEB Q6H PRN PRN Reason: WHEEZING Last Admin: 06/29/17 08:34 Dose: 1 amp Allopurinol (Zyloprim -) 100 mg PO DAILY [facility] Last Admin: 06/28/17 11:35 Dose: 100 mg Ascorbic Acid (Vitamin C -) 500 mg PO DAILY [facility] Last Admin: 06/28/17 11:33 Dose: 500 mg Bisacodyl (Dulcolax -) 10 mg PO [facility] Last Admin: 06/28/17 22:54 Dose: 10 mg Budesonide/Formoterol Fumarate (Symbicort 160/4.5mcg -) 1 puff IH DAILY [facility] Last Admin: 06/28/17 11:35 Dose: 1 puff Carvedilol (Coreg -) 25 mg PO DAILY [facility] Last Admin: 06/28/17 11:36 Dose: 25 mg Clindamycin HCl (Cleocin -) 300 mg PO Q6HPO [facility] Last Admin: 06/29/17 06:39 Dose: 300 mg Docusate Sodium (Colace -) 300 mg PO [facility] Last Admin: 06/28/17 22:54 Dose: 300 mg Epoetin [place] (Procrit -) 20,000 unit SQ ONCE ONE Stop: 07/04/17 06:01 Ergocalciferol (Drisdol -) 50,000 unit PO We@1000 [facility] Folic Acid (Folic Acid -) 1 mg PO DAILY [facility] Last Admin: 06/28/17 11:31 Dose: 1 mg Gabapentin (Neurontin -) 100 mg PO TID [facility] Last Admin: 06/29/17 06:39 Dose: 100 mg Glycerin (Glycerin Suppository Adult -) 1 each RC DAILY [facility] Last Admin: 06/28/17 12:29 Dose: Not Given Guaifenesin (Mucinex -) 600 mg PO DAILY [facility] Last Admin: 06/28/17 11:33 Dose: 600 mg Ertapenem 0.5 gm/ Sodium (Chloride) 100 mls @ 200 mls/hr IVPB DAILY [facility] PRN Reason: Protocol Last Admin: 06/28/17 11:36 Dose: 200 mls/hr Insulin Aspart (Novolog Vial Sliding Scale -) 1 vial SQ HS [facility] PRN Reason: Protocol Last Admin: 06/28/17 22:54 Dose: Not Given Insulin Aspart (Novolog Vial Sliding Scale -) 1 vial SQ TIDAC [facility] PRN Reason: Protocol Last Admin: 06/29/17 06:37 Dose: Not Given Insulin Detemir (Levemir Vial) 33 units SQ DAILY@0700 [facility] Last Admin: 06/29/17 06:39 Dose: 33 units Isosorbide Mononitrate (Imdur -) 60 mg PO DAILY [facility] Last Admin: 06/28/17 11:33 Dose: 60 mg Lactulose (Cephulac (Oral Use)) 30 gm PO HS [facility] Last Admin: 06/28/17 22:50 Dose: Not Given Magnesium Hydroxide (Milk Of Magnesia -) 15 ml PO Q3D@1000 [facility] Last Admin: 06/26/17 09:39 Dose: 15 ml Multivitamins/Minerals (Theragran-M) 1 each PO DAILY [facility] Last Admin: 06/28/17 11:32 Dose: 1 each Nifedipine (Procardia Xl -) 90 mg PO DAILY [facility] Last Admin: 06/28/17 11:36 Dose: 90 mg Oxycodone HCl (Roxicodone -) 5 mg PO TID PRN PRN Reason: PAIN LEVEL 6-10 Last Admin: 06/27/17 23:25 Dose: 5 mg Polyethylene Glycol (Miralax (For Daily Use) -) 17 gm PO DAILY [facility] Last Admin: 06/28/17 12:33 Dose: Not Given Polysaccharide Iron Complex (Niferex-150 -) 150 mg PO DAILY [facility] Last Admin: 06/28/17 11:36 Dose: 150 mg Ranitidine HCl (Zantac -) 150 mg PO HS [facility] Last Admin: 06/28/17 22:55 Dose: 150 mg Senna (Senna -) 2 tab PO HS [facility] Last Admin: 06/28/17 22:55 Dose: 2 tab Torsemide (Demadex -) 80 mg PO DAILY [facility] Last Admin: 06/28/17 11:32 Dose: 80 mg - Objective Vital Signs: Vital Signs Temperature 98 F 06/29/17 06:41 Pulse Rate 69 03/21/18 06:41 Respiratory Rate 20 06/29/17 06:41 Blood Pressure 142/69 06/29/17 06:41 O2 Sat by Pulse Oximetry (%) 99 06/27/17 22:00 Constitutional: Yes: No Distress, Calm Eyes: Yes: Conjunctiva Clear HENT: Yes: Atraumatic Neck: Yes: Supple Cardiovascular: Yes: Regular Rate and Rhythm Respiratory: Yes: Regular Gastrointestinal: Yes: Normal Bowel Sounds, Soft. No: Distention, Melena, Rectal Bleeding, Tenderness, Vomiting Neurological: Yes: Alert, Oriented Labs: CBC, BMP 06/27/17 05:35 06/29/17 08:00 INR, PTT INR 1.96 (0.82-1.09) H 06/29/17 08:00 CBCD WBC 8.5 K/mm3 (4.0-10.0) 06/27/17 05:35 RBC 3.25 M/mm3 (3.60-5.2) L 06/27/17 05:35 Hgb 8.6 GM/dL (10.7-15.3) L 06/27/17 05:35 Hct 26.8 % (32.4-45.2) L 06/27/17 05:35 MCV 82.5 fl (80-96) 06/27/17 05:35 MCHC 32.2 g/dl (32.0-36.0) 06/27/17 05:35 RDW 18.1 % (11.6-15.6) H 06/27/17 05:35 Plt Count 157 K/MM3 (134-434) 06/27/17 05:35 MPV 8.2 fl (7.5-11.1) 06/27/17 05:35 CMP Sodium 148 mmol/L (136-145) H 06/29/17 08:00 Potassium 4.1 mmol/L (3.5-5.1) 06/29/17 08:00 Chloride 106 mmol/L (98-107) 06/29/17 08:00 Carbon Dioxide 33 mmol/L (21-32) H 06/29/17 08:00 Anion Gap 9 (8-16) 06/29/17 08:00 BUN 94 mg/dL (7-18) H 06/29/17 08:00 Creatinine 3.3 mg/dL (0.55-1.02) H 06/29/17 08:00 Creat Clearance w eGFR 12.46 (>60) 06/27/17 05:35 Calcium 8.3 mg/dL (8.5-10.1) L 06/29/17 08:00 Total Bilirubin 0.6 mg/dL (0.2-1.0) D 06/27/17 05:35 AST 9 U/L (15-37) L 06/27/17 05:35 ALT 9 U/L (12-78) L 06/27/17 05:35 Alkaline Phosphatase 46 U/L (45-117) 06/27/17 05:35 Total Protein 6.6 g/dl (6.4-8.2) 06/27/17 05:35 Albumin 2.6 g/dl (3.4-5.0) L 06/27/17 05:35 Problem List - Problems (1) Symptomatic anemia Code(s): D64.9 - ANEMIA, UNSPECIFIED (2) Normocytic hypochromic anemia Code(s): D50.9 - IRON DEFICIENCY ANEMIA, UNSPECIFIED (3) Morbid obesity Code(s): E66.01 - MORBID (SEVERE) OBESITY DUE TO EXCESS CALORIES (4) Severe anemia Code(s): D64.9 - ANEMIA, UNSPECIFIED Assessment/Plan No stigmata of ongoing GI bleeding. Stable hemoglobin and vital signs. Continue current care, no endoscopic intervention planed at at this time.
[2017-06-29] MEDS ORDERED: PT OWN MED DRAWER 7, Y5N ONE ×2 (11:03→11:07)
[2017-06-29] MEDS: CARVEDILOL 25 MG TABLET (FP) PO SCH (11:13)
[2017-06-29] MEDS: TORSEMIDE 20 MG TABLET (FP) PO SCH (11:13)
[2017-06-29] MEDS: ERTAPENEM SODIUM 0.5 GM in SODIUM CHLORIDE 100 ML IVPB SCH (11:13)
[2017-06-29] MEDS: MAGNESIUM HYDROX 2400MG/30ML ORAL SUSPENSION 30 ML CUP PO SCH (11:13)
[2017-06-29] MEDS: guaiFENesin 600 MG TABLET.ER (FP) PO SCH (11:14)
[2017-06-29] MEDS: ASCORBIC ACID 500 MG TABLET (FP) PO SCH (11:14)
[2017-06-29] MEDS: FOLIC ACID 1 MG TABLET (FP) PO SCH (11:14)
[2017-06-29] MEDS: MULTIVITAMINS THER W-MINERALS COMBO TABLET (FP) PO SCH (11:14)
[2017-06-29] MEDS: ISOSORBIDE MONONITRATE 60 MG TAB.SR.24H (FP) PO SCH (11:14)
[2017-06-29] MEDS: IRON POLYSACCHARIDES 150 MG CAPSULE PO SCH (11:15)
[2017-06-29] MEDS: NIFEdipine E.R. 90 MG TABLET (FP) PO SCH (11:15)
[2017-06-29] MEDS: POLYETHYLENE GLYCOL 3350 119 GM BTL PO SCH (11:16)
[2017-06-29] MEDS: BUDESONIDE/FORMETEROL FUMARATE 160/4.5 mcg INHALER IH SCH (11:23)
[2017-06-29] MEDS: ALLOPURINOL 100 MG TABLET (FP) PO SCH (11:23)
--- NOTE | 2017-06-29 11:36 | PN ---
Progress Note, Physician History of Present Illness: patient stable no other issues awaiting sensitivities - Current Medication List Current Medications: Active Medications Acetaminophen (Tylenol -) 650 mg PO Q6H PRN PRN Reason: fever Last Admin: 06/27/17 15:01 Dose: 650 mg Albuterol/Ipratropium (Duoneb -) 1 amp NEB Q6H PRN PRN Reason: WHEEZING Last Admin: 06/29/17 08:34 Dose: 1 amp Allopurinol (Zyloprim -) 100 mg PO DAILY [facility] Last Admin: 06/29/17 11:23 Dose: 100 mg Ascorbic Acid (Vitamin C -) 500 mg PO DAILY [facility] Last Admin: 06/29/17 11:14 Dose: 500 mg Bisacodyl (Dulcolax -) 10 mg PO HS [facility] Last Admin: 06/28/17 22:54 Dose: 10 mg Budesonide/Formoterol Fumarate (Symbicort 160/4.5mcg -) 1 puff IH DAILY [facility] Last Admin: 06/29/17 11:23 Dose: 1 puff Carvedilol (Coreg -) 25 mg PO DAILY [facility] Last Admin: 06/29/17 11:13 Dose: 25 mg Clindamycin HCl (Cleocin -) 300 mg PO Q6HPO [facility] Last Admin: 06/29/17 06:39 Dose: 300 mg Docusate Sodium (Colace -) 300 mg PO HS [facility] Last Admin: 06/28/17 22:54 Dose: 300 mg Epoetin [place] (Procrit -) 20,000 unit SQ ONCE ONE Stop: 07/04/17 06:01 Ergocalciferol (Drisdol -) 50,000 unit PO We@1000 [facility] Last Admin: 06/29/17 11:17 Dose: 50,000 unit Folic Acid (Folic Acid -) 1 mg PO DAILY [facility] Last Admin: 06/29/17 11:14 Dose: 1 mg Gabapentin (Neurontin -) 100 mg PO TID [facility] Last Admin: 06/29/17 06:39 Dose: 100 mg Glycerin (Glycerin Suppository Adult -) 1 each RC DAILY [facility] Last Admin: 06/28/17 12:29 Dose: Not Given Guaifenesin (Mucinex -) 600 mg PO DAILY [facility] Last Admin: 06/29/17 11:14 Dose: 600 mg Ertapenem 0.5 gm/ Sodium (Chloride) 100 mls @ 200 mls/hr IVPB DAILY [facility] PRN Reason: Protocol Last Admin: 06/29/17 11:13 Dose: 200 mls/hr Insulin Aspart (Novolog Vial Sliding Scale -) 1 vial SQ HS [facility] PRN Reason: Protocol Last Admin: 06/28/17 22:54 Dose: Not Given Insulin Aspart (Novolog Vial Sliding Scale -) 1 vial SQ TIDAC [facility] PRN Reason: Protocol Last Admin: 06/29/17 06:37 Dose: Not Given Insulin Detemir (Levemir Vial) 33 units SQ DAILY@0700 [facility] Last Admin: 06/29/17 06:39 Dose: 33 units Isosorbide Mononitrate (Imdur -) 60 mg PO DAILY [facility] Last Admin: 06/29/17 11:14 Dose: 60 mg Lactulose (Cephulac (Oral Use)) 30 gm PO HS [facility] Last Admin: 06/28/17 22:50 Dose: Not Given Magnesium Hydroxide (Milk Of Magnesia -) 15 ml PO Q3D@1000 [facility] Last Admin: 06/29/17 11:13 Dose: 15 ml Multivitamins/Minerals (Theragran-M) 1 each PO DAILY [facility] Last Admin: 06/29/17 11:14 Dose: 1 each Nifedipine (Procardia Xl -) 90 mg PO DAILY [facility] Last Admin: 06/29/17 11:15 Dose: 90 mg Oxycodone HCl (Roxicodone -) 5 mg PO TID PRN PRN Reason: PAIN LEVEL 6-10 Last Admin: 06/27/17 23:25 Dose: 5 mg Polyethylene Glycol (Miralax (For Daily Use) -) 17 gm PO DAILY [facility] Last Admin: 06/29/17 11:16 Dose: 17 gm Polysaccharide Iron Complex (Niferex-150 -) 150 mg PO DAILY [facility] Last Admin: 06/29/17 11:15 Dose: 150 mg Ranitidine HCl (Zantac -) 150 mg PO HS [facility] Last Admin: 06/28/17 22:55 Dose: 150 mg Senna (Senna -) 2 tab PO HS [facility] Last Admin: 06/28/17 22:55 Dose: 2 tab Torsemide (Demadex -) 80 mg PO DAILY [facility] Last Admin: 06/29/17 11:13 Dose: 80 mg - Objective Vital Signs: Vital Signs Temperature 98 F 03/21/18 06:41 Pulse Rate 69 06/29/17 06:41 Respiratory Rate 20 06/29/17 06:41 Blood Pressure 142/69 06/29/17 06:41 O2 Sat by Pulse Oximetry (%) 99 06/27/17 22:00 Constitutional: Yes: No Distress, Calm, Obese Cardiovascular: Yes: Regular Rate and Rhythm Respiratory: Yes: Regular, CTA Bilaterally, On Nasal O2 Gastrointestinal: Yes: Normal Bowel Sounds, Soft Musculoskeletal: Yes: WNL Extremities: Yes: Other Wound/Incision: Yes: Other Neurological: Yes: Alert, Oriented Psychiatric: Yes: Alert, Oriented Labs: CBC, BMP 06/27/17 05:35 06/29/17 08:00 INR, PTT INR 1.96 (0.82-1.09) H 06/29/17 08:00 Assessment/Plan Problem List - Problems (1) GI bleed Code(s): K92.2 - GASTROINTESTINAL HEMORRHAGE, UNSPECIFIED (2) Morbid obesity Code(s): E66.01 - MORBID (SEVERE) OBESITY DUE TO EXCESS CALORIES (3) Afib Code(s): I48.91 - UNSPECIFIED ATRIAL FIBRILLATION Qualifiers: Atrial fibrillation type: persistent Qualified Code(s): I48.1 - Persistent atrial fibrillation 4 uti 5 renal failure 6 wound infection 7 mrsa plan continue current abx awaiting sensitivities spoke with the lab continue as per podiatry team discussed with lab still awaiting final sensitivities according to lab it will be ready soon depending on that we will plan further mgmt
[2017-06-29] MEDS: GLYCERIN 1 RECTAL SUPPOSITORY, ADULT RC SCH (12:48)
--- NOTE | 2017-06-29 14:04 | PN ---
Progress Note, Physician History of Present Illness: Pt seen and examined at bedside. She is awake and alert. She denies shortness of breath. - Current Medication List Current Medications: Active Medications Acetaminophen (Tylenol -) 650 mg PO Q6H PRN PRN Reason: fever Last Admin: 06/27/17 15:01 Dose: 650 mg Albuterol/Ipratropium (Duoneb -) 1 amp NEB Q6H PRN PRN Reason: WHEEZING Last Admin: 06/29/17 08:34 Dose: 1 amp Allopurinol (Zyloprim -) 100 mg PO DAILY [facility] Last Admin: 06/29/17 11:23 Dose: 100 mg Ascorbic Acid (Vitamin C -) 500 mg PO DAILY [facility] Last Admin: 06/29/17 11:14 Dose: 500 mg Bisacodyl (Dulcolax -) 10 mg PO [facility] Last Admin: 06/28/17 22:54 Dose: 10 mg Budesonide/Formoterol Fumarate (Symbicort 160/4.5mcg -) 1 puff IH DAILY [facility] Last Admin: 06/29/17 11:23 Dose: 1 puff Carvedilol (Coreg -) 25 mg PO DAILY [facility] Last Admin: 06/29/17 11:13 Dose: 25 mg Clindamycin HCl (Cleocin -) 300 mg PO Q6HPO [facility] Last Admin: 06/29/17 12:48 Dose: 300 mg Docusate Sodium (Colace -) 300 mg PO [facility] Last Admin: 06/28/17 22:54 Dose: 300 mg Epoetin [place] (Procrit -) 20,000 unit SQ ONCE ONE Stop: 07/04/17 06:01 Ergocalciferol (Drisdol -) 50,000 unit PO We@1000 [facility] Last Admin: 06/29/17 11:17 Dose: 50,000 unit Folic Acid (Folic Acid -) 1 mg PO DAILY [facility] Last Admin: 06/29/17 11:14 Dose: 1 mg Gabapentin (Neurontin -) 100 mg PO TID [facility] Last Admin: 06/29/17 13:57 Dose: 100 mg Glycerin (Glycerin Suppository Adult -) 1 each RC DAILY [facility] Last Admin: 06/29/17 12:48 Dose: Not Given Guaifenesin (Mucinex -) 600 mg PO DAILY [facility] Last Admin: 06/29/17 11:14 Dose: 600 mg Ertapenem 0.5 gm/ Sodium (Chloride) 100 mls @ 200 mls/hr IVPB DAILY [facility] PRN Reason: Protocol Last Admin: 06/29/17 11:13 Dose: 200 mls/hr Insulin Aspart (Novolog Vial Sliding Scale -) 1 vial SQ HS [facility] PRN Reason: Protocol Last Admin: 06/28/17 22:54 Dose: Not Given Insulin Aspart (Novolog Vial Sliding Scale -) 1 vial SQ TIDAC [facility] PRN Reason: Protocol Last Admin: 06/29/17 11:37 Dose: Not Given Insulin Detemir (Levemir Vial) 33 units SQ DAILY@0700 [facility] Last Admin: 06/29/17 06:39 Dose: 33 units Isosorbide Mononitrate (Imdur -) 60 mg PO DAILY [facility] Last Admin: 06/29/17 11:14 Dose: 60 mg Lactulose (Cephulac (Oral Use)) 30 gm PO HS [facility] Last Admin: 06/28/17 22:50 Dose: Not Given Magnesium Hydroxide (Milk Of Magnesia -) 15 ml PO Q3D@1000 [facility] Last Admin: 06/29/17 11:13 Dose: 15 ml Multivitamins/Minerals (Theragran-M) 1 each PO DAILY [facility] Last Admin: 06/29/17 11:14 Dose: 1 each Nifedipine (Procardia Xl -) 90 mg PO DAILY [facility] Last Admin: 06/29/17 11:15 Dose: 90 mg Polyethylene Glycol (Miralax (For Daily Use) -) 17 gm PO DAILY [facility] Last Admin: 06/29/17 11:16 Dose: 17 gm Polysaccharide Iron Complex (Niferex-150 -) 150 mg PO DAILY [facility] Last Admin: 06/29/17 11:15 Dose: 150 mg Ranitidine HCl (Zantac -) 150 mg PO HS [facility] Last Admin: 06/28/17 22:55 Dose: 150 mg Senna (Senna -) 2 tab PO HS [facility] Last Admin: 06/28/17 22:55 Dose: 2 tab Torsemide (Demadex -) 80 mg PO DAILY [facility] Last Admin: 06/29/17 11:13 Dose: 80 mg - Objective Vital Signs: Vital Signs Temperature 98 F 06/29/17 06:41 Pulse Rate 69 06/29/17 06:41 Respiratory Rate 20 06/29/17 06:41 Blood Pressure 142/69 06/29/17 06:41 O2 Sat by Pulse Oximetry (%) 99 06/27/17 22:00 Constitutional: Yes: Calm Eyes: Yes: Conjunctiva Clear HENT: Yes: Atraumatic Cardiovascular: Yes: S1, S2 Respiratory: Yes: On Nasal O2 Gastrointestinal: Yes: Soft, Abdomen, Obese Genitourinary: Yes: Incontinence Musculoskeletal: Yes: WNL Edema: Yes Edema: LLE: 1+, RLE: 1+ Neurological: Yes: Oriented Psychiatric: Yes: Oriented Labs: CBC, BMP 06/27/17 05:35 06/29/17 08:00 INR, PTT INR 1.96 (0.82-1.09) H 06/29/17 08:00 Problem List - Problems (1) GI bleed Code(s): K92.2 - GASTROINTESTINAL HEMORRHAGE, UNSPECIFIED (2) Morbid obesity Code(s): E66.01 - MORBID (SEVERE) OBESITY DUE TO EXCESS CALORIES (3) CHF (congestive heart failure) Code(s): I50.9 - HEART FAILURE, UNSPECIFIED (4) CKD (chronic kidney disease) Code(s): N18.9 - CHRONIC KIDNEY DISEASE, UNSPECIFIED Qualifiers: Chronic kidney disease stage: unspecified stage Qualified Code(s): N18.9 - Chronic kidney disease, unspecified Assessment/Plan Current Medications Generic Name Dose Route Start Last Admin Trade Name Freq PRN Reason Stop Dose Admin Acetaminophen 650 mg 06/25/17 18:15 06/27/17 15:01 Tylenol - PO 650 mg Q6H PRN Administration fever Albuterol/Ipratropium 1 amp 06/22/17 21:10 06/29/17 08:34 Duoneb - NEB 1 amp Q6H PRN Administration WHEEZING Allopurinol 100 mg 06/23/17 10:00 06/29/17 11:23 Zyloprim - PO 100 mg DAILY [facility] Administration Ascorbic Acid 500 mg 06/23/17 10:00 06/29/17 11:14 Vitamin C - PO 500 mg DAILY [facility] Administration Bisacodyl 10 mg 06/22/17 22:00 06/28/17 22:54 Dulcolax - PO 10 mg HS [facility] Administration Budesonide/Formoterol Fumarate 1 puff 06/23/17 10:00 06/29/17 11:23 Symbicort 160/4.5mcg - IH 1 puff DAILY [facility] Administration Carvedilol 25 mg 06/23/17 10:00 06/29/17 11:13 Coreg - PO 25 mg DAILY [facility] Administration Clindamycin HCl 300 mg 06/27/17 18:00 06/29/17 12:48 Cleocin - PO 300 mg Q6HPO [facility] Administration Docusate Sodium 300 mg 06/22/17 22:00 06/28/17 22:54 Colace - PO 300 mg HS [facility] Administration Epoetin [place] 20,000 unit 07/04/17 06:00 Procrit - SQ 07/04/17 06:01 ONCE ONE Ergocalciferol 50,000 unit 06/29/17 10:00 06/29/17 11:17 Drisdol - PO 50,000 unit We@1000 [facility] Administration Folic Acid 1 mg 06/23/17 10:00 06/29/17 11:14 Folic Acid - PO 1 mg DAILY [facility] Administration Gabapentin 100 mg 06/22/17 22:00 06/29/17 13:57 Neurontin - PO 100 mg TID [facility] Administration Glycerin 1 each 06/22/17 22:15 06/29/17 12:48 Glycerin Suppository Adult - RC Not Given DAILY [facility] Guaifenesin 600 mg 06/23/17 10:00 06/29/17 11:14 Mucinex - PO 600 mg DAILY [facility] Administration Ertapenem 0.5 gm/ Sodium 100 mls @ 200 mls/hr 06/27/17 12:15 06/29/17 11:13 Chloride IVPB 200 mls/hr DAILY [facility] Administration Protocol Insulin Aspart 1 vial 06/22/17 22:00 06/28/17 22:54 Novolog Vial Sliding Scale - SQ Not Given HS [facility] Protocol Insulin Aspart 1 vial 06/23/17 07:00 06/29/17 11:37 Novolog Vial Sliding Scale - SQ Not Given TIDAC [facility] Protocol Insulin Detemir 33 units 06/23/17 07:00 06/29/17 06:39 Levemir Vial SQ 33 units DAILY@0700 [facility] Administration Isosorbide Mononitrate 60 mg 06/23/17 10:00 06/29/17 11:14 Imdur - PO 60 mg DAILY [facility] Administration Lactulose 30 gm 06/22/17 22:00 06/28/17 22:50 Cephulac (Oral Use) PO Not Given HS [facility] Magnesium Hydroxide 15 ml 06/23/17 10:00 06/29/17 11:13 Milk Of Magnesia - PO 15 ml Q3D@1000 [facility] Administration Multivitamins/Minerals 1 each 06/23/17 10:00 06/29/17 11:14 Theragran-M PO 1 each DAILY [facility] Administration Nifedipine 90 mg 06/23/17 10:00 06/29/17 11:15 Procardia Xl - PO 90 mg DAILY [facility] Administration Polyethylene Glycol 17 gm 06/23/17 10:00 06/29/17 11:16 Miralax (For Daily Use) - PO 17 gm DAILY [facility] Administration Polysaccharide Iron Complex 150 mg 06/23/17 10:00 06/29/17 11:15 Niferex-150 - PO 150 mg DAILY [facility] Administration Ranitidine HCl 150 mg 06/22/17 22:00 06/28/17 22:55 Zantac - PO 150 mg HS [facility] Administration Senna 2 tab 06/22/17 22:00 06/28/17 22:55 Senna - PO 2 tab HS [facility] Administration Torsemide 80 mg 06/23/17 10:00 06/29/17 11:13 Demadex - PO 80 mg DAILY [facility] Administration Impression 1. CKD 2. obesity 3. hyperlipidemia 4. HTN 5. DM 6. CHF 7. CAD 8. anemia 9. a-fib 10. iron deficiency Plan - renal function stabilizing - cont torsemide - abx per ID - discusse av access with pt again today - will follow Dr Capps
--- NOTE | 2017-06-29 18:23 | PN ---
Progress Note, Physician Chief Complaint: no complaints wants to go home no SOB - Current Medication List Current Medications: Active Medications Acetaminophen (Tylenol -) 650 mg PO Q6H PRN PRN Reason: fever Last Admin: 06/27/17 15:01 Dose: 650 mg Albuterol/Ipratropium (Duoneb -) 1 amp NEB Q6H PRN PRN Reason: WHEEZING Last Admin: 06/29/17 14:04 Dose: 1 amp Allopurinol (Zyloprim -) 100 mg PO DAILY [facility] Last Admin: 06/29/17 11:23 Dose: 100 mg Ascorbic Acid (Vitamin C -) 500 mg PO DAILY [facility] Last Admin: 06/29/17 11:14 Dose: 500 mg Bisacodyl (Dulcolax -) 10 mg PO [facility] Last Admin: 06/28/17 22:54 Dose: 10 mg Budesonide/Formoterol Fumarate (Symbicort 160/4.5mcg -) 1 puff IH DAILY [facility] Last Admin: 06/29/17 11:23 Dose: 1 puff Carvedilol (Coreg -) 25 mg PO DAILY [facility] Last Admin: 06/29/17 11:13 Dose: 25 mg Clindamycin HCl (Cleocin -) 300 mg PO Q6HPO [facility] Last Admin: 06/29/17 17:55 Dose: 300 mg Docusate Sodium (Colace -) 300 mg PO HS [facility] Last Admin: 06/28/17 22:54 Dose: 300 mg Epoetin [place] (Procrit -) 20,000 unit SQ ONCE ONE Stop: 07/04/17 06:01 Ergocalciferol (Drisdol -) 50,000 unit PO We@1000 [facility] Last Admin: 06/29/17 11:17 Dose: 50,000 unit Folic Acid (Folic Acid -) 1 mg PO DAILY [facility] Last Admin: 06/29/17 11:14 Dose: 1 mg Gabapentin (Neurontin -) 100 mg PO TID [facility] Last Admin: 06/29/17 13:57 Dose: 100 mg Glycerin (Glycerin Suppository Adult -) 1 each RC DAILY [facility] Last Admin: 06/29/17 12:48 Dose: Not Given Guaifenesin (Mucinex -) 600 mg PO DAILY [facility] Last Admin: 06/29/17 11:14 Dose: 600 mg Ertapenem 0.5 gm/ Sodium (Chloride) 100 mls @ 200 mls/hr IVPB DAILY [facility] PRN Reason: Protocol Last Admin: 06/29/17 11:13 Dose: 200 mls/hr Insulin Aspart (Novolog Vial Sliding Scale -) 1 vial SQ HS [facility] PRN Reason: Protocol Last Admin: 06/28/17 22:54 Dose: Not Given Insulin Aspart (Novolog Vial Sliding Scale -) 1 vial SQ TIDAC [facility] PRN Reason: Protocol Last Admin: 06/29/17 17:41 Dose: Not Given Insulin Detemir (Levemir Vial) 33 units SQ DAILY@0700 [facility] Last Admin: 06/29/17 06:39 Dose: 33 units Isosorbide Mononitrate (Imdur -) 60 mg PO DAILY [facility] Last Admin: 06/29/17 11:14 Dose: 60 mg Lactulose (Cephulac (Oral Use)) 30 gm PO HS [facility] Last Admin: 06/28/17 22:50 Dose: Not Given Magnesium Hydroxide (Milk Of Magnesia -) 15 ml PO Q3D@1000 [facility] Last Admin: 06/29/17 11:13 Dose: 15 ml Multivitamins/Minerals (Theragran-M) 1 each PO DAILY [facility] Last Admin: 06/29/17 11:14 Dose: 1 each Nifedipine (Procardia Xl -) 90 mg PO DAILY [facility] Last Admin: 06/29/17 11:15 Dose: 90 mg Polyethylene Glycol (Miralax (For Daily Use) -) 17 gm PO DAILY [facility] Last Admin: 06/29/17 11:16 Dose: 17 gm Polysaccharide Iron Complex (Niferex-150 -) 150 mg PO DAILY [facility] Last Admin: 06/29/17 11:15 Dose: 150 mg Ranitidine HCl (Zantac -) 150 mg PO HS [facility] Last Admin: 06/28/17 22:55 Dose: 150 mg Senna (Senna -) 2 tab PO HS [facility] Last Admin: 06/28/17 22:55 Dose: 2 tab Torsemide (Demadex -) 80 mg PO DAILY [facility] Last Admin: 06/29/17 11:13 Dose: 80 mg - Objective Vital Signs: Vital Signs Temperature 98.4 F 06/29/17 16:53 Pulse Rate 69 06/29/17 16:53 Respiratory Rate 20 06/29/17 16:53 Blood Pressure 137/84 06/29/17 16:53 O2 Sat by Pulse Oximetry (%) 99 06/27/17 22:00 Constitutional: Yes: No Distress Cardiovascular: Yes: Pulse Irregular Respiratory: Yes: Diminished Gastrointestinal: Yes: Normal Bowel Sounds, Soft, Abdomen, Obese. No: Tenderness Edema: Yes Labs: CBC, BMP 06/27/17 05:35 06/29/17 08:00 INR, PTT INR 1.96 (0.82-1.09) H 06/29/17 08:00 Problem List - Problems (1) Severe anemia Code(s): D64.9 - ANEMIA, UNSPECIFIED (2) Acute on chronic renal insufficiency Code(s): N28.9 - DISORDER OF KIDNEY AND URETER, UNSPECIFIED; N18.9 - CHRONIC KIDNEY DISEASE, UNSPECIFIED (3) Afib Code(s): I48.91 - UNSPECIFIED ATRIAL FIBRILLATION Qualifiers: Atrial fibrillation type: persistent Qualified Code(s): I48.1 - Persistent atrial fibrillation (4) Anemia Code(s): D64.9 - ANEMIA, UNSPECIFIED Qualifiers: Anemia type: unspecified type Qualified Code(s): D64.9 - Anemia, unspecified (5) Anemia requiring transfusions Code(s): D64.9 - ANEMIA, UNSPECIFIED (6) CHF (congestive heart failure) Code(s): I50.9 - HEART FAILURE, UNSPECIFIED Assessment/Plan PLAN Received 2 units PRBC so far pt refuses endoscopic interventions Continue with Coumadin per INR No active bleeding renal function slowly improving spoke with ID-- awaiting final culture results- R/o ESBL for antibiotics duration DVT px-- Warfarin
[2017-06-29] MEDS: LACTULOSE 20 GM/30 ML UDC (FOR ORAL USE ONLY) PO SCH (23:22)
[2017-06-29] MEDS: SENNOSIDES 8.6MG TABLET (FP) PO SCH (23:23)
[2017-06-29] MEDS: DOCUSATE SODIUM 100 MG CAPSULE (FP) PO SCH (23:23)
[2017-06-29] MEDS: BISACODYL 5 MG TABLET.DR (FP) PO SCH (23:23)
[2017-06-29] MEDS: RANITIDINE HCL 150 MG TABLET (FP) PO SCH (23:24)
[2017-06-29] MEDS: ACETAMINOPHEN 325 MG TABLET (FP) PO PRN (23:24)
[2017-06-30] MEDS: INSULIN DETEMIR 100 UNITS/ML MDV SQ SCH (06:19)
[2017-06-30] MEDS: GABAPENTIN 100 MG CAPSULE (FP) PO SCH ×2 (06:19→14:07)
[2017-06-30] MEDS: CLINDAMYCIN HCL 150 MG CAPSULE (FP) PO SCH ×3 (06:19→18:49)
[2017-06-30] MEDS: INSULIN SLIDING SCALE (NOVOLOG) 1 VIAL SQ SCH ×3 (06:23→18:31)
[2017-06-30] MEDS ORDERED: INSULIN (NOVOLOG) ASPART 100 UNITS/ML 10ML VIAL ONE (06:59)
[2017-06-30] MEDS ORDERED: INSULIN DETEMIR 100 UNITS/ML MDV SQ ONE (06:59)
[2017-06-30] MEDS: FOLIC ACID 1 MG TABLET (FP) PO SCH (10:18)
[2017-06-30] MEDS: TORSEMIDE 20 MG TABLET (FP) PO SCH (10:18)
[2017-06-30] MEDS: ISOSORBIDE MONONITRATE 60 MG TAB.SR.24H (FP) PO SCH (10:18)
[2017-06-30] MEDS: MULTIVITAMINS THER W-MINERALS COMBO TABLET (FP) PO SCH (10:18)
[2017-06-30] MEDS: CARVEDILOL 25 MG TABLET (FP) PO SCH (10:19)
[2017-06-30] MEDS: ASCORBIC ACID 500 MG TABLET (FP) PO SCH (10:19)
[2017-06-30] MEDS: guaiFENesin 600 MG TABLET.ER (FP) PO SCH (10:19)
[2017-06-30] MEDS: GLYCERIN 1 RECTAL SUPPOSITORY, ADULT RC SCH (10:19)
[2017-06-30] MEDS: BUDESONIDE/FORMETEROL FUMARATE 160/4.5 mcg INHALER IH SCH (10:20)
[2017-06-30] MEDS: NIFEdipine E.R. 90 MG TABLET (FP) PO SCH (10:20)
[2017-06-30] MEDS: IRON POLYSACCHARIDES 150 MG CAPSULE PO SCH (10:20)
[2017-06-30] MEDS: ALLOPURINOL 100 MG TABLET (FP) PO SCH (10:21)
[2017-06-30] MEDS: POLYETHYLENE GLYCOL 3350 119 GM BTL PO SCH (10:59)
--- NOTE | 2017-06-30 11:56 | DS ---
Physical Examination Vital Signs: Vital Signs Temperature 97.8 F 06/30/17 06:00 Pulse Rate 66 06/30/17 06:00 Respiratory Rate 20 06/30/17 06:00 Blood Pressure 161/67 06/30/17 06:00 O2 Sat by Pulse Oximetry (%) 98 06/29/17 22:00 Constitutional: Yes: No Distress, Calm Cardiovascular: Yes: Pulse Irregular Respiratory: Yes: Diminished Gastrointestinal: Yes: Normal Bowel Sounds, Soft, Abdomen, Obese. No: Tenderness Edema: Yes Edema: LLE: 2+, RLE: 2+ Labs: CBC, BMP 06/27/17 05:35 06/29/17 08:00 Discharge Summary Reason For Visit: ANEMIA DUE TO BLOOD LOSS Current Active Problems GI bleed (Acute) Morbid obesity (Acute) Normocytic hypochromic anemia (Acute) Severe anemia (Acute) Symptomatic anemia (Acute) Hospital Course: Admitted for acute severe anemia--transfused 2 units here had worsening renal function-- seen by Renal -- continue with Torsemide-- renal function improving-- may need dialysis in the future. Has left ingrown toe nail -- nail avulsion done by Podiatry-- was draining-- wound cultures positive for MRSA. UTI-- positive urine cultures-- seen by ID-- xrays to foot negative for osteomyelitis. Microbiology 06/25/17 23:00 Urine - Urine Clean Catch Urine Culture - Final Escherichia Coli Proteus Species Enterococcus Faecalis 06/24/17 15:30 Foot - Left Gram Stain - Final 06/25/17 19:30 Blood - Peripheral Venous Blood Culture - Preliminary NO GROWTH OBTAINED AFTER 96 HOURS, INCUBATION TO CONTINUE FOR 1 DAYS. 06/25/17 19:10 Blood - Peripheral Venous Blood Culture - Preliminary NO GROWTH OBTAINED AFTER 96 HOURS, INCUBATION TO CONTINUE FOR 1 DAYS. 06/24/17 15:30 Foot - Left Wound Culture - Preliminary Proteus Mirabilis Mr S Aureus Pt to be on Clindamycin x 10 more days as well as Augmentin x 10 more days Will need to have Podiatry follow [place] with [place] Stable for dc to [place] Condition: Good - Instructions Referrals: Diana Whitmore MD [Primary Care Provider] - [facility]position[facility] - Home Medications Comprehensive Discharge Medication List: Ambulatory Orders Acetaminophen [Extra Strength Non-Aspirin] 1,000 mg PO Q8H PRN 06/22/17 Albuterol 2.5/Ipratropium 0.5 [Duoneb -] 1 neb IH QID PRN 06/22/17 Allopurinol [Zyloprim -] 100 mg PO DAILY 06/22/17 Ascorbic Acid [Vitamin C] 500 mg PO DAILY 06/22/17 Bisacodyl 10 mg PO HS 06/22/17 Budesonide/Formeterol Fumarate [SYMBICORT 160/4.5mcg -] 1 puff IH DAILY Carvedilol [Coreg -] 25 mg PO DAILY 06/22/17 Cholecalciferol (Vitamin D3) [Dialyvite Vitamin D3 Max] 50,000 unit PO WEEKLY Ciprofloxacin [Cipro (Restricted To Id)] 500 mg PO Q12H 06/22/17 Colchicine 0.3 mg PO DAILY 06/22/17 Docusate Sodium [Colace] 300 mg PO HS 06/22/17 Epoetin [place] [Procrit -] 10,000 unit SQ ASDIR 06/22/17 Folic Acid 1 mg PO DAILY 06/22/17 Gabapentin 100 mg PO TID 06/22/17 Glycerin 1 each RC [facility]IR 06/22/17 Guaifenesin [Mucinex] 600 mg PO DAILY 06/22/17 Insulin (LOG) Aspart [NovoLOG -] See Protocol SQ TID 06/22/17 Insulin (Levemir) [Levemir Vial] 33 unit SQ DAILY 06/22/17 Iron Polysaccharides [Niferex-150 -] 150 mg PO DAILY 06/22/17 Isosorbide Mononitrate [Imdur -] 60 mg PO DAILY 06/22/17 Lactulose (Oral Use) [Cephulac -] 45 ml PO HS 06/22/17 Magnesium Hydroxide [Milk of Magnesia] 15 ml PO Q3D 06/22/17 Multivit with Iron,Minerals [Compete] 1 tab PO DAILY 06/22/17 Nifedipine ER [Procardia XL -] 90 mg PO DAILY 06/22/17 Oxycodone HCl 10 mg PO Q8H PRN 06/22/17 Polyethylene Glycol 3350 [Miralax (For Daily Use) -] 17 gm PO DAILY 06/22/17 Ranitidine HCl [Zantac] 150 mg PO HS 06/22/17 Sennosides [Senna] 2 tab PO HS 06/22/17 Silver Sulfadiazine [Silvadene] 1 applic TP BID 06/22/17 Torsemide [Demadex] 80 mg PO DAILY 06/22/17 Warfarin Sodium 4.5 mg PO HS 06/22/17
--- NOTE | 2017-06-30 11:58 | PN ---
Progress Note, Physician History of Present Illness: patient doing well no complaints all cx result noted - Current Medication List Current Medications: Active Medications Acetaminophen (Tylenol -) 650 mg PO Q6H PRN PRN Reason: fever Last Admin: 06/29/17 23:24 Dose: 650 mg Albuterol/Ipratropium (Duoneb -) 1 amp NEB Q6H PRN PRN Reason: WHEEZING Last Admin: 06/29/17 20:43 Dose: 1 amp Allopurinol (Zyloprim -) 100 mg PO DAILY [facility] Last Admin: 06/30/17 10:21 Dose: 100 mg Ascorbic Acid (Vitamin C -) 500 mg PO DAILY [facility] Last Admin: 06/30/17 10:19 Dose: 500 mg Bisacodyl (Dulcolax -) 10 mg PO HS [facility] Last Admin: 06/29/17 23:23 Dose: 10 mg Budesonide/Formoterol Fumarate (Symbicort 160/4.5mcg -) 1 puff IH DAILY [facility] Last Admin: 06/30/17 10:20 Dose: 1 puff Carvedilol (Coreg -) 25 mg PO DAILY [facility] Last Admin: 06/30/17 10:19 Dose: 25 mg Clindamycin HCl (Cleocin -) 300 mg PO Q6HPO [facility] Last Admin: 06/30/17 06:19 Dose: 300 mg Docusate Sodium (Colace -) 300 mg PO HS [facility] Last Admin: 06/29/17 23:23 Dose: 300 mg Epoetin [place] (Procrit -) 20,000 unit SQ ONCE ONE Stop: 07/04/17 06:01 Ergocalciferol (Drisdol -) 50,000 unit PO We@1000 [facility] Last Admin: 06/29/17 11:17 Dose: 50,000 unit Folic Acid (Folic Acid -) 1 mg PO DAILY [facility] Last Admin: 06/30/17 10:18 Dose: 1 mg Gabapentin (Neurontin -) 100 mg PO TID [facility] Last Admin: 06/30/17 06:19 Dose: 100 mg Glycerin (Glycerin Suppository Adult -) 1 each RC DAILY [facility] Last Admin: 06/30/17 10:19 Dose: Not Given Guaifenesin (Mucinex -) 600 mg PO DAILY [facility] Last Admin: 06/30/17 10:19 Dose: 600 mg Insulin Aspart (Novolog Vial Sliding Scale -) 1 vial SQ HS [facility] PRN Reason: Protocol Last Admin: 06/29/17 23:22 Dose: Not Given Insulin Aspart (Novolog Vial Sliding Scale -) 1 vial SQ TIDAC [facility] PRN Reason: Protocol Last Admin: 06/30/17 06:23 Dose: Not Given Insulin Detemir (Levemir Vial) 33 units SQ DAILY@0700 [facility] Last Admin: 06/30/17 06:19 Dose: 33 units Isosorbide Mononitrate (Imdur -) 60 mg PO DAILY [facility] Last Admin: 06/30/17 10:18 Dose: 60 mg Lactulose (Cephulac (Oral Use)) 30 gm PO [facility] Last Admin: 06/29/17 23:22 Dose: Not Given Magnesium Hydroxide (Milk Of Magnesia -) 15 ml PO Q3D@1000 [facility] Last Admin: 06/29/17 11:13 Dose: 15 ml Multivitamins/Minerals (Theragran-M) 1 each PO DAILY [facility] Last Admin: 06/30/17 10:18 Dose: 1 each Nifedipine (Procardia Xl -) 90 mg PO DAILY [facility] Last Admin: 06/30/17 10:20 Dose: 90 mg Polyethylene Glycol (Miralax (For Daily Use) -) 17 gm PO DAILY [facility] Last Admin: 06/30/17 10:59 Dose: 17 gm Polysaccharide Iron Complex (Niferex-150 -) 150 mg PO DAILY [facility] Last Admin: 06/30/17 10:20 Dose: 150 mg Ranitidine HCl (Zantac -) 150 mg PO [facility] Last Admin: 06/29/17 23:24 Dose: 150 mg Senna (Senna -) 2 tab PO [facility] Last Admin: 06/29/17 23:23 Dose: 2 tab Torsemide (Demadex -) 80 mg PO DAILY [facility] Last Admin: 06/30/17 10:18 Dose: 80 mg - Objective Vital Signs: Vital Signs Temperature 97.8 F 06/30/17 06:00 Pulse Rate 66 06/30/17 06:00 Respiratory Rate 20 06/30/17 06:00 Blood Pressure 161/67 06/30/17 06:00 O2 Sat by Pulse Oximetry (%) 98 06/29/17 22:00 Constitutional: Yes: No Distress, Calm, Obese Cardiovascular: Yes: Regular Rate and Rhythm Respiratory: Yes: Regular, On Nasal O2, Poor Air Entry Gastrointestinal: Yes: Normal Bowel Sounds, Soft Musculoskeletal: Yes: WNL Extremities: Yes: WNL Integumentary: Yes: Other Wound/Incision: Yes: Clean/Dry Neurological: Yes: Alert, Oriented Psychiatric: Yes: Alert, Oriented Labs: CBC, BMP 06/27/17 05:35 06/29/17 08:00 INR, PTT INR 1.96 (0.82-1.09) H 06/29/17 08:00 Assessment/Plan Problem List - Problems (1) GI bleed Code(s): K92.2 - GASTROINTESTINAL HEMORRHAGE, UNSPECIFIED (2) Morbid obesity Code(s): E66.01 - MORBID (SEVERE) OBESITY DUE TO EXCESS CALORIES (3) Afib Code(s): I48.91 - UNSPECIFIED ATRIAL FIBRILLATION Qualifiers: Atrial fibrillation type: persistent Qualified Code(s): I48.1 - Persistent atrial fibrillation 4 uti 5 renal failure 6 wound infection 7 mrsa plan sensitivities noted discussed with the primary team changed abx to oral continue oral abx as discussed for 10 days wound care
--- NOTE | 2017-06-30 14:09 | PN ---
Progress Note, Physician History of Present Illness: Pt seen and examined at bedside. She is awake and alert. She denies shortness of breath. - Current Medication List Current Medications: Active Medications Acetaminophen (Tylenol -) 650 mg PO Q6H PRN PRN Reason: fever Last Admin: 06/29/17 23:24 Dose: 650 mg Albuterol/Ipratropium (Duoneb -) 1 amp NEB Q6H PRN PRN Reason: WHEEZING Last Admin: 06/29/17 20:43 Dose: 1 amp Allopurinol (Zyloprim -) 100 mg PO DAILY [facility] Last Admin: 06/30/17 10:21 Dose: 100 mg Ascorbic Acid (Vitamin C -) 500 mg PO DAILY [facility] Last Admin: 06/30/17 10:19 Dose: 500 mg Bisacodyl (Dulcolax -) 10 mg PO [facility] Last Admin: 06/29/17 23:23 Dose: 10 mg Budesonide/Formoterol Fumarate (Symbicort 160/4.5mcg -) 1 puff IH DAILY [facility] Last Admin: 06/30/17 10:20 Dose: 1 puff Carvedilol (Coreg -) 25 mg PO DAILY [facility] Last Admin: 06/30/17 10:19 Dose: 25 mg Clindamycin HCl (Cleocin -) 300 mg PO Q6HPO [facility] Last Admin: 06/30/17 06:19 Dose: 300 mg Docusate Sodium (Colace -) 300 mg PO HS [facility] Last Admin: 06/29/17 23:23 Dose: 300 mg Epoetin [place] (Procrit -) 20,000 unit SQ ONCE ONE Stop: 07/04/17 06:01 Ergocalciferol (Drisdol -) 50,000 unit PO We@1000 [facility] Last Admin: 06/29/17 11:17 Dose: 50,000 unit Folic Acid (Folic Acid -) 1 mg PO DAILY [facility] Last Admin: 06/30/17 10:18 Dose: 1 mg Gabapentin (Neurontin -) 100 mg PO TID [facility] Last Admin: 06/30/17 06:19 Dose: 100 mg Glycerin (Glycerin Suppository Adult -) 1 each RC DAILY [facility] Last Admin: 06/30/17 10:19 Dose: Not Given Guaifenesin (Mucinex -) 600 mg PO DAILY [facility] Last Admin: 06/30/17 10:19 Dose: 600 mg Insulin Aspart (Novolog Vial Sliding Scale -) 1 vial SQ HS [facility] PRN Reason: Protocol Last Admin: 06/29/17 23:22 Dose: Not Given Insulin Aspart (Novolog Vial Sliding Scale -) 1 vial SQ TIDAC [facility] PRN Reason: Protocol Last Admin: 06/30/17 12:41 Dose: Not Given Insulin Detemir (Levemir Vial) 33 units SQ DAILY@0700 [facility] Last Admin: 06/30/17 06:19 Dose: 33 units Isosorbide Mononitrate (Imdur -) 60 mg PO DAILY [facility] Last Admin: 06/30/17 10:18 Dose: 60 mg Lactulose (Cephulac (Oral Use)) 30 gm PO HS [facility] Last Admin: 06/29/17 23:22 Dose: Not Given Magnesium Hydroxide (Milk Of Magnesia -) 15 ml PO Q3D@1000 [facility] Last Admin: 06/29/17 11:13 Dose: 15 ml Multivitamins/Minerals (Theragran-M) 1 each PO DAILY [facility] Last Admin: 06/30/17 10:18 Dose: 1 each Nifedipine (Procardia Xl -) 90 mg PO DAILY [facility] Last Admin: 06/30/17 10:20 Dose: 90 mg Polyethylene Glycol (Miralax (For Daily Use) -) 17 gm PO DAILY [facility] Last Admin: 06/30/17 10:59 Dose: 17 gm Polysaccharide Iron Complex (Niferex-150 -) 150 mg PO DAILY [facility] Last Admin: 06/30/17 10:20 Dose: 150 mg Ranitidine HCl (Zantac -) 150 mg PO [facility] Last Admin: 06/29/17 23:24 Dose: 150 mg Senna (Senna -) 2 tab PO HS [facility] Last Admin: 06/29/17 23:23 Dose: 2 tab Torsemide (Demadex -) 80 mg PO DAILY [facility] Last Admin: 06/30/17 10:18 Dose: 80 mg - Objective Vital Signs: Vital Signs Temperature 97.8 F 06/30/17 06:00 Pulse Rate 66 06/30/17 06:00 Respiratory Rate 20 06/30/17 06:00 Blood Pressure 161/67 06/30/17 06:00 O2 Sat by Pulse Oximetry (%) 98 06/29/17 22:00 Constitutional: Yes: Calm Eyes: Yes: Conjunctiva Clear HENT: Yes: Atraumatic Neck: Yes: Supple Cardiovascular: Yes: S1, S2 Gastrointestinal: Yes: Normal Bowel Sounds ...Rectal Exam: Yes: Deferred Musculoskeletal: Yes: WNL Edema: Yes Edema: LLE: 1+, RLE: 1+ Neurological: Yes: Oriented Psychiatric: Yes: Oriented Labs: CBC, BMP 06/27/17 05:35 06/29/17 08:00 INR, PTT INR 1.96 (0.82-1.09) H 06/29/17 08:00 Problem List - Problems (1) GI bleed Code(s): K92.2 - GASTROINTESTINAL HEMORRHAGE, UNSPECIFIED (2) Morbid obesity Code(s): E66.01 - MORBID (SEVERE) OBESITY DUE TO EXCESS CALORIES (3) CHF (congestive heart failure) Code(s): I50.9 - HEART FAILURE, UNSPECIFIED (4) CKD (chronic kidney disease) Code(s): N18.9 - CHRONIC KIDNEY DISEASE, UNSPECIFIED Qualifiers: Chronic kidney disease stage: unspecified stage Qualified Code(s): N18.9 - Chronic kidney disease, unspecified Assessment/Plan Current Medications Generic Name Dose Route Start Last Admin Trade Name Freq PRN Reason Stop Dose Admin Acetaminophen 650 mg 06/25/17 18:15 06/29/17 23:24 Tylenol - PO 650 mg Q6H PRN Administration fever Albuterol/Ipratropium 1 amp 06/22/17 21:10 06/29/17 20:43 Duoneb - NEB 1 amp Q6H PRN Administration WHEEZING Allopurinol 100 mg 06/23/17 10:00 06/30/17 10:21 Zyloprim - PO 100 mg DAILY [facility] Administration Ascorbic Acid 500 mg 06/23/17 10:00 06/30/17 10:19 Vitamin C - PO 500 mg DAILY [facility] Administration Bisacodyl 10 mg 06/22/17 22:00 06/29/17 23:23 Dulcolax - PO 10 mg HS [facility] Administration Budesonide/Formoterol Fumarate 1 puff 06/23/17 10:00 06/30/17 10:20 Symbicort 160/4.5mcg - IH 1 puff DAILY [facility] Administration Carvedilol 25 mg 06/23/17 10:00 06/30/17 10:19 Coreg - PO 25 mg DAILY [facility] Administration Clindamycin HCl 300 mg 06/27/17 18:00 06/30/17 06:19 Cleocin - PO 300 mg Q6HPO [facility] Administration Docusate Sodium 300 mg 06/22/17 22:00 06/29/17 23:23 Colace - PO 300 mg HS [facility] Administration Epoetin [place] 20,000 unit 07/04/17 06:00 Procrit - SQ 07/04/17 06:01 ONCE ONE Ergocalciferol 50,000 unit 06/29/17 10:00 06/29/17 11:17 Drisdol - PO 50,000 unit We@1000 [facility] Administration Folic Acid 1 mg 06/23/17 10:00 06/30/17 10:18 Folic Acid - PO 1 mg DAILY [facility] Administration Gabapentin 100 mg 06/22/17 22:00 06/30/17 06:19 Neurontin - PO 100 mg TID [facility] Administration Glycerin 1 each 06/22/17 22:15 06/30/17 10:19 Glycerin Suppository Adult - RC Not Given DAILY [facility] Guaifenesin 600 mg 06/23/17 10:00 06/30/17 10:19 Mucinex - PO 600 mg DAILY [facility] Administration Insulin Aspart 1 vial 06/22/17 22:00 06/29/17 23:22 Novolog Vial Sliding Scale - SQ Not Given HS [facility] Protocol Insulin Aspart 1 vial 06/23/17 07:00 06/30/17 12:41 Novolog Vial Sliding Scale - SQ Not Given TIDAC [facility] Protocol Insulin Detemir 33 units 06/23/17 07:00 06/30/17 06:19 Levemir Vial SQ 33 units DAILY@0700 [facility] Administration Isosorbide Mononitrate 60 mg 06/23/17 10:00 06/30/17 10:18 Imdur - PO 60 mg DAILY [facility] Administration Lactulose 30 gm 06/22/17 22:00 06/29/17 23:22 Cephulac (Oral Use) PO Not Given HS [facility] Magnesium Hydroxide 15 ml 06/23/17 10:00 06/29/17 11:13 Milk Of Magnesia - PO 15 ml Q3D@1000 [facility] Administration Multivitamins/Minerals 1 each 06/23/17 10:00 06/30/17 10:18 Theragran-M PO 1 each DAILY [facility] Administration Nifedipine 90 mg 06/23/17 10:00 06/30/17 10:20 Procardia Xl - PO 90 mg DAILY [facility] Administration Polyethylene Glycol 17 gm 06/23/17 10:00 06/30/17 10:59 Miralax (For Daily Use) - PO 17 gm DAILY [facility] Administration Polysaccharide Iron Complex 150 mg 06/23/17 10:00 06/30/17 10:20 Niferex-150 - PO 150 mg DAILY [facility] Administration Ranitidine HCl 150 mg 06/22/17 22:00 06/29/17 23:24 Zantac - PO 150 mg HS [facility] Administration Senna 2 tab 06/22/17 22:00 06/29/17 23:23 Senna - PO 2 tab HS [facility] Administration Torsemide 80 mg 06/23/17 10:00 06/30/17 10:18 Demadex - PO 80 mg DAILY [facility] Administration Impression 1. CKD 2. obesity 3. hyperlipidemia 4. HTN 5. DM 6. CHF 7. CAD 8. anemia 9. a-fib 10. iron deficiency Plan - no new labs - pt will follow with Dr Xiao - I again discussed fistula placement with her - cont torsemide - abx per ID - will follow Dr Capps
[2017-06-30 15:42] VITALS: BP 120/70; PULSE 84; TEMP 98.2
[2017-06-30] MEDS: ERTAPENEM SODIUM 0.5 GM in SODIUM CHLORIDE 100 ML IVPB SCH (15:56)
[2017-07-04] MEDS ORDERED: EPOETIN ALFA 20,000 UNIT/1 ML VIAL SQ ONE (06:00)
== END 2017-06-30 18:56 | DRG 292 ==
LOC: JER 14:08 → JERBED 20:27 → J8W 23:00 → OBSVTOIN 06-24 09:48
PROVIDERS: ADMIT Internal Medicine; ATTEND Internal Medicine
PROC: 30233H1 Transfusion of Nonautologous Whole Blood into Peripheral Vein, Percutaneous Approach (ICD-10-PCS; 2017-06-22)
PROC: 0HDRXZZ Extraction of Toe Nail, External Approach (ICD-10-PCS; principal; 2017-06-25)
DX: I13.0 Hypertensive heart and chronic kidney disease with heart failure and stage 1 through stage 4 chronic kidney disease, or unspecified chronic kidney disease (principal); Z68.44 Body mass index [BMI] 60.0-69.9, adult; N39.0 Urinary tract infection, site not specified; K92.1 Melena; N17.9 Acute kidney failure, unspecified; L60.0 Ingrowing nail; L03.032 Cellulitis of left toe; E66.01 Morbid (severe) obesity due to excess calories; D63.1 Anemia in chronic kidney disease; I48.91 Unspecified atrial fibrillation; J44.9 Chronic obstructive pulmonary disease, unspecified; Z74.01 Bed confinement status; M10.012 Idiopathic gout, left shoulder; K21.9 Gastro-esophageal reflux disease without esophagitis; E11.22 Type 2 diabetes mellitus with diabetic chronic kidney disease; I50.9 Heart failure, unspecified; Z79.01 Long term (current) use of anticoagulants; F32.89 Other specified depressive episodes; E87.5 Hyperkalemia; K59.00 Constipation, unspecified; D50.9 Iron deficiency anemia, unspecified; B95.62 Methicillin resistant Staphylococcus aureus infection as the cause of diseases classified elsewhere; E78.5 Hyperlipidemia, unspecified
CPT/HCPCS: 36415; 36430; 73630-TC-LT; 76775-TC; 80048; 80053; 81003; 81015; 82272; 82570; 82728; 82962; 83615; 83735; 84100; 84156; 84300; 84484; 84540; 85025; 85027; 85044; 85610; 85730; 86850; 86880; 86900; 86901; 86922; 87040; 87070; 87086; 87186; 87205; 88304-TC; 93005; 93010; 94640; 99283-25; G0378; J0131; J0885; P9038; P9058

== ENCOUNTER 2017-10-27 17:54 | Observation (INO) | payer OTHER ==
[2017-10-27 18:13] VITALS: BMI 64.0
--- NOTE | 2017-10-27 18:20 | PDOC ---
History of Present Illness - General Chief Complaint: Weakness Stated Complaint: AMS Time Seen by Provider: 10/27/17 18:16 History Source: Patient Exam Limitations: No Limitations - History of Present Illness Initial Comments: 10/27/17 18:19 The patient is a 72F with a PMH of HTN, HLD, DM, CHF, arthritis, morbid Obesity , COPD, Afib, GERD, GOUT, anemia who has presented to the ER with complaints of "feeling strange". She states that she had a difficult time waking up this morning but denies any other symptoms. She denies any lethargy, CP, SOB, fever, chills, nausea, vomiting, numbness, tingling, and weakness, hematuria, melena, hematochezia. Past History - Past Medical History Allergies/Adverse Reactions: Allergies Allergy/AdvReac Type Severity Reaction Status Date / Time No Known Allergies Allergy Verified 10/14/17 17:13 Home Medications: Ambulatory Orders Allopurinol [Zyloprim -] 100 mg PO DAILY 10/14/17 Ascorbic Acid [C-500] 500 mg PO DAILY 10/14/17 Atorvastatin Calcium 10 mg PO HS 10/14/17 Bisacodyl [Gentle Laxative] 5 mg PO HS 10/14/17 Budesonide/Formeterol Fumarate [SYMBICORT 160/4.5mcg -] 1 inh PO BID 10/14/17 Carvedilol 25 mg PO DAILY 10/14/17 Cholecalciferol (Vitamin D3) [Vitamin D3] 1,000 unit PO DAILY 10/14/17 Docusate Sodium [Colace] 100 mg PO HS 10/14/17 Epoetin [place] [Procrit -] 10,000 unit IJ 10/14/17 Folic Acid 1 mg PO DAILY 10/14/17 Furosemide [Lasix -] 40 mg PO DAILY 10/14/17 Gabapentin [Neurontin -] 100 mg PO Q8H 10/14/17 Insulin Aspart [Novolog Flexpen] 5 unit SQ TID 10/14/17 Insulin Detemir [Levemir Flextouch] 33 unit SQ HS 10/14/17 Ipratropium [place] 0.2 mg IH Q6H PRN 10/14/17 Iron Polysaccharide Complex [Ferrex 150] 150 mg PO DAILY 10/14/17 Isosorbide Mononitrate 60 mg PO DAILY 10/14/17 Lactulose 30 gm PO HS 10/14/17 Metoprolol Tartrate 50 mg PO TID 10/14/17 Multivitamin [Multiple Vitamins] 1 each PO DAILY 10/14/17 Nifedipine ER [Procardia XL -] 90 mg PO DAILY 10/14/17 Oxycodone HCl/Acetaminophen [Percocet 5-325 mg Tablet] 2 tab PO TID 10/14/17 Ranitidine HCl 150 mg PO DAILY 10/14/17 Spironolactone [Aldactone] 25 mg PO DAILY 10/14/17 Torsemide 20 mg PO DAILY 10/14/17 Whey/Arginine/C/E/Malic/Citric [Argitein Powder Packet] 1 each PO TID 10/14/17 Nitrofurantoin Monohyd/M-Cryst [Macrobid -] 100 mg PO BID #10 capsule 10/18/17 Anemia: Yes Asthma: Yes Cardiac Disorders: Yes (atrial fibrilation) COPD: Yes CHF: Yes Diabetes: Yes GI Disorders: Yes (GERD) Disorders: Yes (UTI) HTN: Yes Hypercholesterolemia: Yes - Surgical History Orthopedic Surgery: Yes (L. Ankle sx, L.leg) - Immunization History Immunization Up to Date: Yes - Suicide/Smoking/Psychosocial Hx Smoking Status: No Smoking History: Never smoked Have you smoked in the past 12 months: No Number of Cigarettes Smoked Daily: 0 Hx Alcohol Use: No Drug/Substance Use Hx: No Substance Use Type: None Hx Substance Use Treatment: No Review of Systems - Review of Systems Able to Perform ROS?: Yes Comments:: 10/27/17 20:32 GENERAL/CONSTITUTIONAL: Positive for weakness. No fever or chills. HEAD, EYES, EARS, NOSE AND THROAT: No change in vision. No ear pain or discharge. No sore throat. CARDIOVASCULAR: No chest pain, palpitations, or lightheadedness. RESPIRATORY: No cough, wheezing, shortness of breath, or hemoptysis. GASTROINTESTINAL: No nausea, vomiting, diarrhea, constipation, or abdominal pain. GENITOURINARY: No dysuria, frequency, hematuria, or change in urination. MUSCULOSKELETAL: No joint or muscle swelling or pain. No neck or back pain. SKIN: No rash or lesions. NEUROLOGIC: No headache, numbness, tingling, weakness, loss of consciousness, or change in strength/sensation. ENDOCRINE: No increased thirst. No abnormal weight change. HEMATOLOGIC/LYMPHATIC: No anemia, easy bleeding, or history of blood clots. ALLERGIC/IMMUNOLOGIC: No hives or skin allergy. Is the patient limited [place] Citizen proficient: No *Physical Exam - Vital Signs Last Vital Signs Temp Pulse Resp BP Pulse Ox 98.5 F 67 18 106/74 96 10/27/17 18:12 10/27/17 18:12 10/27/17 18:12 10/27/17 18:12 10/27/17 18:12 - Physical Exam Comments: 10/27/17 20:34 GENERAL: Well developed, well nourished. Awake and alert. No acute distress. HEENT: Normocephalic, atraumatic. Hearing grossly normal. Moist mucous membranes. PERRLA, EOMI. No conjunctival pallor. Sclera are non-icteric. NECK: Supple. Full ROM. CARDIOVASCULAR: Regular rate and rhythm. No murmurs, rubs, or gallops. PULMONARY: No evidence of respiratory distress. Lungs clear to auscultation bilaterally. No wheezing, rales or rhonchi. ABDOMINAL: Soft. Non-tender. Non-distended. No rebound or guarding. MUSCULOSKELETAL: Normal range of motion at all joints. No bony deformities or tenderness. EXTREMITIES: No cyanosis. No clubbing. 3+ pitting edema in b/l LE. No calf tenderness or swelling. SKIN: Warm and dry. Normal capillary refill. No rashes. No jaundice. NEUROLOGICAL: Alert, awake, appropriate. Cranial nerves 2-12 grossly intact. Normal speech. PSYCHIATRIC: Cooperative. Good eye contact. Appropriate mood and affect. Heart Score/ECG Review #1 General ECG Interpretation: Sinus Rhythm, Normal Rate, Normal Intervals, No acute ischemic changes Compared to previous ECG there are: No significant change 10/27/17 20:36 Sinus bird vent rate 58 MS 240 QRS 98 QTc 441 1st degree AV block No MACEY or STD No signs of acute ischemia. ED Treatment Course - LABORATORY CBC & Chemistry Diagram: 10/27/17 19:10 10/27/17 21:45 Medical Decision Making - Medical Decision Making 10/27/17 20:34 The patient is a 72F with an extensive PMH who presents to the ER for feeling "strange". I am concerned for an atypical presentation of ACS, CHF exacerbation , or worsening anemia. Pending labs and imaging and EKG. 10/27/17 20:37 EKG unchanged. Hgb 9.6, improved from 10 days ago. Pending CMP, BNP, and troponin and CXR. BNP elevated. Will give 40 lasix and monitor. 10/28/17 00:16 I have endorsed the pt to Dr. Ricardo for admission. *DC/Admit/Observation/Transfer Diagnosis at time of Disposition: Diastolic CHF, acute on chronic - Discharge Dispostion Condition at time of disposition: Guarded Decision to Admit order: Yes - Referrals Referrals: Diana Whitmore MD [Primary Care Provider] - - Patient Instructions - Post Discharge Activity
[2017-10-27 19:19] LABS: BASO % 0.2 % (0-2.0); EOS % 3.2 % (0-4.5); HEMATOCRIT 30.3 % (32.4-45.2); HEMOGLOBIN 9.6 GM/dL (10.7-15.3); LYMPH % 24.2 % (8-40); MCH 27.6 pg (25.7-33.7); MCHC 31.6 g/dl (32.0-36.0); MEAN CELL VOLUME 87.3 fl (80-96); MEAN PLT VOLUME 8.2 fl (7.5-11.1); MONO % 6.8 % (3.8-10.2); NEUT % 65.6 % (42.8-82.8); PLATELET COUNT 187 K/MM3 (134-434); RBC 3.47 M/mm3 (3.60-5.2); RDW 17.2 % (11.6-15.6); WHITE BLOOD COUNT 8.5 K/mm3 (4.0-10.0)
--- NOTE | 2017-10-27 20:04 | PDOC ---
Attending Attestation - HPI HPI: 10/27/17 20:47 The patient is a 72 year old female, with a significant PMH of HTN, HLD, DM, CHF , arthritis, Morbid Obesity, COPD, Afib, GERD, GOUT, anemia with multiple transfusions, who presents to the emergency department complaining of fatigue. The patient states she feels strange and more tired than usual. The patient denies chest pain, shortness of breath, headache and dizziness. Denies fever, chills, nausea, vomit, diarrhea and constipation. Denies dysuria, frequency, urgency and hematuria. Allergies: NKA - Physicial Exam PE: 10/27/17 20:48 GENERAL: Well-appearing, well-nourished. No apparent distress. HEENT: Normocephalic, atraumatic. PERRL, EOM intact. CARDIOVASCULAR: Normal S1, S2. Regular rate and rhythm. PULMONARY: Clear to auscultation bilaterally. ABDOMEN: Soft, non-distended, non-tender. EXTREMITIES: (+) 3+ pitting edema in bilateral lower extremities. Normal ROM in all four extremities. No gross deformities. SKIN: Warm, dry. No rash NEUROLOGICAL: No focal neurological deficits. <Jose Luis Ramos - Last Filed: 10/27/17 20:47> - Resident Resident Name: Brice Murillo - ED Attending Attestation I have performed the following: I have examined & evaluated the patient, The case was reviewed & discussed with the resident, I agree w/resident's findings & plan, Exceptions are as noted - Medical Decision Making 10/31/17 19:21 Pt was admitted for further evaluation and care <Meño Robertson - Last Filed: 10/31/17 19:22> Attestations - Attestations 10/27/17 20:49 Documentation prepared by Jose Luis Ramos, acting as medical research scientist for Meño Robertson DO. <Jose Luis Ramos - Last Filed: 10/27/17 20:47>
[2017-10-27 21:51] LABS: URINE APPEARANCE SLCLOUDY; URINE BILIRUBIN NEGATIVE (<2.0 mg/dL); URINE COLOR LTYELLOW; URINE GLUCOSE (UA) NEGATIVE (NEGATIVE); URINE KETONE NEGATIVE (NEGATIVE); URINE LEUK ESTERASE NEGATIVE (NEGATIVE); URINE NITRITE NEGATIVE (NEGATIVE); URINE UROBILINOGEN NEGATIVE mg/dL (0.2-1.0)
[2017-10-27 22:07] LABS: URINE PROTEIN 1+ (NEGATIVE)
[2017-10-27 22:14] LABS: EPI CELLS RARE /HPF (FEW); URINE BACTERIA RARE /hpf (NONE SEEN); URINE HYALINE CAST 3 /lpf
[2017-10-27 22:16] LABS: ALBUMIN 2.9 g/dl (3.4-5.0); ANION GAP 8 (8-16); BILIRUBIN,TOTAL 0.2 mg/dL (0.2-1.0); BLOOD UREA NITROGEN 88 mg/dL (7-18); CALCIUM 8.2 mg/dL (8.5-10.1); CHLORIDE 111 mmol/L (98-107); CO2 25 mmol/L (21-32); CREATININE 3.5 mg/dL (0.55-1.02); GLUCOSE,RANDOM 99 mg/dL (74-106); POTASSIUM 5.5 mmol/L (3.5-5.1); SGOT/AST 15 U/L (15-37); SGPT/ALT 14 U/L (12-78); SODIUM 144 mmol/L (136-145); TOT PROT 6.2 g/dl (6.4-8.2)
[2017-10-27 22:19] LABS: ALK PHOS 58 U/L (45-117); N-TERMINAL BNP 2258.57 pg/ml (5-125)
[2017-10-27 22:57] LABS: ANISOCYTOSIS 1+
[2017-10-27 22:58] LABS: PLATELET ESTIMATE ADEQUATE
[2017-10-27] MEDS ORDERED: FUROSEMIDE 40 MG/4 ML INJECTABLE VIAL IVPUSH ONE (23:05)
[2017-10-27] MEDS ORDERED: FUROSEMIDE 40 MG/4 ML INJECTABLE VIAL ONE (23:22)
--- NOTE | 2017-10-28 00:56 | PN ---
Teaching Attending Note Name of Resident: Dorian Ricardo ATTENDING PHYSICIAN STATEMENT I saw and evaluated the patient. I reviewed the resident's note and discussed the case with the resident. I agree with the resident's findings and plan as documented. SUBJECTIVE: Patient is a 72 year old woman with a history of HTN, HLD, DM, CHF, MRSA infection, arthritis, morbid Obesity, COPD, Afib, GERD, GOUT, anemia who has presented to the ER with complaints of "feeling strange". She states that she had a difficult time waking up this morning but denies any other symptoms. Says [facility] staff told her she was confused when they woke her up from sleep. She also admits that she has been sleeping a lot lately and she has had episodic right hand shaking. Was recently hospitalized for UTI and also got blood transfusion. She denies any lethargy, CP, SOB, fever, chills, nausea, vomiting, numbness, tingling, and weakness, hematuria, melena, hematochezia. Was very lucid during my interview. Though on 2L oxygen at the [facility], she was comfortable and saturating well off O2 in the ER. OBJECTIVE: Obese. Alert and in no distress Vital Signs Period Temp Pulse Resp BP Sys/Contreras Pulse Ox Last 24 Hr 98.5 F 60-67 18-18 106-116/74-76 96-98 HEENT: No Jaundice, eye redness or discharge, PERRLA, EOMI. Normocephalic, atraumatic. External ears are normal and hearing is grossly intact. No nasal discharge. Neck: Supple, nontender. No palpable adenopathy or thyromegaly. No JVD Chest: Good effort. Clear to auscultation and percussion. Heart: Regular. No S3, rub or murmur Abdomen: Not distended, soft, nontender and no HSM. No rebound or guarding. Normoactive bowel sounds. Ext: Peripheral pulses intact. Leg edema. Left buttock stage 1 decubitus ulcer. Skin: Warm and dry. No petechiae, rash or ecchymosis. Neuro: Alert. Oriented x3. CN 2-12 grossly intact. Sensation grossly intact in all four extremities and DTR are symmetric. Home Medications Medication Instructions Recorded Allopurinol [Zyloprim -] 100 mg PO DAILY 10/14/17 Ascorbic Acid [C-500] 500 mg PO DAILY 10/14/17 Atorvastatin Calcium 10 mg PO HS 10/14/17 Bisacodyl [Gentle Laxative] 5 mg PO HS 10/14/17 Budesonide/Formeterol Fumarate 1 inh PO BID 10/14/17 [SYMBICORT 160/4.5mcg -] Carvedilol 25 mg PO DAILY 10/14/17 Cholecalciferol (Vitamin D3) 1,000 unit PO DAILY 10/14/17 [Vitamin D3] Docusate Sodium [Colace] 100 mg PO HS 10/14/17 Epoetin [place] [Procrit -] 10,000 unit IJ 10/14/17 Folic Acid 1 mg PO DAILY 10/14/17 Furosemide [Lasix -] 40 mg PO DAILY 10/14/17 Gabapentin [Neurontin -] 100 mg PO Q8H 10/14/17 Insulin Aspart [Novolog Flexpen] 5 unit SQ TID 10/14/17 Insulin Detemir [Levemir Flextouch] 33 unit SQ HS 10/14/17 Ipratropium [place] 0.2 mg IH Q6H PRN 10/14/17 Iron Polysaccharide Complex 150 mg PO DAILY 10/14/17 [Ferrex 150] Isosorbide Mononitrate 60 mg PO DAILY 10/14/17 Lactulose 30 gm PO HS 10/14/17 Metoprolol Tartrate 50 mg PO TID 10/14/17 Multivitamin [Multiple Vitamins] 1 each PO DAILY 10/14/17 Nifedipine ER [Procardia XL -] 90 mg PO DAILY 10/14/17 Oxycodone HCl/Acetaminophen 2 tab PO TID 10/14/17 [Percocet 5-325 mg Tablet] Ranitidine HCl 150 mg PO DAILY 10/14/17 Spironolactone [Aldactone] 25 mg PO DAILY 10/14/17 Torsemide 20 mg PO DAILY 10/14/17 Whey/Arginine/C/E/Malic/Citric 1 each PO TID 10/14/17 [Argitein Powder Packet] Nitrofurantoin Monohyd/M-Cryst 100 mg PO BID #10 capsule 10/18/17 [Macrobid -] Abnormal Lab Results 10/27/17 10/27/17 10/27/17 19:10 21:40 21:45 RBC 3.47 L Hgb 9.6 L Hct 30.3 L MCHC 31.6 L RDW 17.2 H Potassium 5.5 H Chloride 111 H BUN 88 H Creatinine 3.5 H Calcium 8.2 L Creatine Kinase 439 H B-Natriuretic Peptide 2258.57 H Total Protein 6.2 L Albumin 2.9 L Urine Protein 1+ H Urine Blood 1+ H ASSESSMENT AND PLAN: 1. Altered mental status - Increased bouts of confusion and sleepiness may be drug side effect or drug interaction superimposed on advanced kindey failure. patient is on a lot of medications and will strive to discontinue some that are not absolutely essential. Complex partial seizures is another possible etiology. Will get MRI of brain and EEG. Consult Neurology. There is no overt evidence of infection at this time - CXR shows possible RUL infiltrate/ atelectasis whuch may be chronic. Will get CT chest for clarification but will withhold antibiotics for now. Consult pulmonary. EKG shows bradycardia - which is chronic and she is on beta william. No significant ST-T wave changes. 2. Buttock Decubitus Ulcer - Daily wound and frequent repositioning. 3. CKD stage 3 and Hyperkalemia - Aldcatone therapy and Type 4 RTA associated with DM in the setting of progressing CKD may explain hyperkalemia. Hold aldcatone, give kayexalate and consult nephrology. Avoid nephrotoxic agents such as NSAIDS, aminoglycosides, contrast dyes and certain Alternative medicine products. 4. Hypoalbuminemia - Possibly due to combined effects of malnutrition and inflammation associated with comorbid chronic conditions. Rule out proteinuria. Will ensure adequate dietary protein intake and also consult home office representative. 5. DM - For now, we will hold the home diabetes drugs and implement sliding scale insulin regimen. Provide comprehensive diabetes care with patient teaching and counseling about the importance of euglycemia, eye care and foot care. 6. Anemia - Partly due to CKD. Supposed to be on Procrit. Ensure adequate iron stores to maximize response to Procrit and rule out GI loss. 7. Morbid Obesity - Will provide patient all the necessary assistance , counseling and positive reinforcement to facilitate weight loss. Consult home office representative. 8. DVT prophylaxis - Heparin 5000u sq tid. 9. Advance directives - Full code
[2017-10-28] MEDS ORDERED: HEPARIN NA (PORCINE) 5,000 UNITS/ML 1ML VIAL SQ SCH (04:15)
[2017-10-28] MEDS ORDERED: SODIUM POLYSTYRENE SULFONATE 15 GM/60 ML BOTTLE PO SCH (04:15)
[2017-10-28] MEDS ORDERED: SODIUM POLYSTYRENE SULFONATE 15 GM/60 ML BOTTLE PO ONE (05:01)
--- NOTE | 2017-10-28 05:26 | HP ---
CHIEF COMPLAINT: "feeling funny" AMS PCP: Jeannette Lee [facility] HISTORY OF PRESENT ILLNESS: Pt is a 72 y/o F with extensive PMH who presented to ED sent from [facility]. Pt states she felt "funny" this morning. After further questioning, pt admits that she experienced R hand shaking, blurry vision, and confusion/AMS Th morning. She was told by [facility] staff that she did not know where she was for almost 30 min. She denies loss of bowel/bladder control. Denies shaking of other parts of her body. She does, however, admit to having had numerous episodes of R hand shaking in the past. During these 1 min episodes, pt states she cannot control her hand, and subsequently drops anything she happens to be holding. These have been occurring for the past 2 years, once per month. Pt also admits to leg swelling, though she can't be sure if it's the same or worse than it has been in the past. ER course was notable for: (1) Hb 9.6, K 5.5, Scullion Chief 3.5 (stable), CK 439, BNP 2258, UA: 1+ blood, 1+ prot (2) EKG unremarkable, CXR RUL ?congestion pending official read (3) lasix 40, Vanc, Merrem Recent Travel: denies PAST MEDICAL HISTORY: HTN, HLD, IDDM, CHF, arthritis, Morbid obesity, COPD, Afib, Gout, anemia PAST SURGICAL HISTORY: L ankle, C/S x2, tubal ligation Social History: Smoking: denies Alcohol: denies Drugs: marijuana Family History: denies Allergies No Known Allergies Allergy (Verified 10/14/17 17:13) HOME MEDICATIONS: Home Medications Medication Instructions Recorded Allopurinol [Zyloprim -] 100 mg PO DAILY 10/14/17 Ascorbic Acid [C-500] 500 mg PO DAILY 10/14/17 Atorvastatin Calcium 10 mg PO HS 10/14/17 Bisacodyl [Gentle Laxative] 5 mg PO HS 10/14/17 Budesonide/Formeterol Fumarate 1 inh PO BID 10/14/17 [SYMBICORT 160/4.5mcg -] Carvedilol 25 mg PO DAILY 10/14/17 Cholecalciferol (Vitamin D3) 1,000 unit PO DAILY 10/14/17 [Vitamin D3] Docusate Sodium [Colace] 100 mg PO HS 10/14/17 Epoetin [place] [Procrit -] 10,000 unit IJ 10/14/17 Folic Acid 1 mg PO DAILY 10/14/17 Furosemide [Lasix -] 40 mg PO DAILY 10/14/17 Gabapentin [Neurontin -] 100 mg PO Q8H 10/14/17 Insulin Aspart [Novolog Flexpen] 5 unit SQ TID 10/14/17 Insulin Detemir [Levemir Flextouch] 33 unit SQ HS 10/14/17 Ipratropium [place] 0.2 mg IH Q6H PRN 10/14/17 Iron Polysaccharide Complex 150 mg PO DAILY 10/14/17 [Ferrex 150] Isosorbide Mononitrate 60 mg PO DAILY 10/14/17 Lactulose 30 gm PO HS 10/14/17 Metoprolol Tartrate 50 mg PO TID 10/14/17 Multivitamin [Multiple Vitamins] 1 each PO DAILY 10/14/17 Nifedipine ER [Procardia XL -] 90 mg PO DAILY 10/14/17 Oxycodone HCl/Acetaminophen 2 tab PO TID 10/14/17 [Percocet 5-325 mg Tablet] Ranitidine HCl 150 mg PO DAILY 10/14/17 Spironolactone [Aldactone] 25 mg PO DAILY 10/14/17 Torsemide 20 mg PO DAILY 10/14/17 Whey/Arginine/C/E/Malic/Citric 1 each PO TID 10/14/17 [Argitein Powder Packet] Nitrofurantoin Monohyd/M-Cryst 100 mg PO BID #10 capsule 10/18/17 [Macrobid -] REVIEW OF SYSTEMS CONSTITUTIONAL: Absent: fever, chills, diaphoresis, generalized weakness, malaise, loss of appetite, weight change HEENT: Absent: rhinorrhea, nasal congestion, throat pain, throat swelling, difficulty swallowing, mouth swelling, ear pain, eye pain, visual changes CARDIOVASCULAR: Absent: chest pain, syncope, palpitations, irregular heart rate, lightheadedness , peripheral edema RESPIRATORY: Absent: cough, shortness of breath, dyspnea with exertion, orthopnea, wheezing, stridor, hemoptysis GASTROINTESTINAL: Absent: abdominal pain, abdominal distension, nausea, vomiting, diarrhea, constipation, melena, hematochezia GENITOURINARY: Absent: dysuria, frequency, urgency, hesitancy, hematuria, flank pain, genital pain MUSCULOSKELETAL: Absent: myalgia, arthralgia, joint swelling, back pain, neck pain SKIN: Absent: rash, itching, pallor HEMATOLOGIC/IMMUNOLOGIC: Absent: easy bleeding, easy bruising, lymphadenopathy, frequent infections ENDOCRINE: Absent: unexplained weight gain, unexplained weight loss, heat intolerance, cold intolerance NEUROLOGIC: episodes of shaking of the R hand Absent: headache, focal weakness or paresthesias, dizziness, unsteady gait, seizure, mental status changes, bladder or bowel incontinence PSYCHIATRIC: Absent: anxiety, depression, suicidal or homicidal ideation, hallucinations. PHYSICAL EXAMINATION Vital Signs - 24 hr 10/27/17 10/27/17 10/27/17 18:12 21:47 23:50 Temperature 98.5 F Pulse Rate 67 Pulse Rate [ 60 Right Radial] Respiratory 18 18 Rate Blood Pressure 106/74 Blood Pressure 116/76 [Right Arm] O2 Sat by Pulse 96 98 97 Oximetry (%) Gen: Morbidly obese, NAD HEENT: NCAT, PERRL, EOMI Neck: large neck, supple, no jvd, no bruits Cardio: dist heart sounds, no mrg, s1s2 heard, rrr Pulm: dist lung sounds, mild expiratory wheeze Abd: obese, soft nontender, normal BS Ext: 3+ pitting edema, 1+ pulses Neuro: no focal deficits Laboratory Results - last 24 hr 10/27/17 10/27/17 10/27/17 19:10 19:10 21:40 WBC 8.5 RBC 3.47 L Hgb 9.6 L Hct 30.3 L MCV 87.3 MCH 27.6 MCHC 31.6 L RDW 17.2 H Plt Count 187 MPV 8.2 Absolute Neuts (auto) 5.6 Total Counted 100 Neutrophils % 65.6 Neutrophils % (Manual) 72.0 Lymphocytes % 24.2 D Lymphocytes % (Manual) 17.0 Monocytes % 6.8 Monocytes % (Manual) 7 Eosinophils % 3.2 Eosinophils % (Manual) 4.0 Basophils % 0.2 Nucleated RBC % 0 Hypochromia 1+ Platelet Estimate Adequate Platelet Comment No clumping noted Anisocytosis 1+ Microcytosis 1+ Sodium Cancelled Potassium Cancelled Chloride Cancelled Carbon Dioxide Cancelled Anion Gap Cancelled BUN Cancelled Creatinine Cancelled Creat Clearance w eGFR Cancelled Random Glucose Cancelled Calcium Cancelled Total Bilirubin Cancelled AST Cancelled ALT Cancelled Alkaline Phosphatase Cancelled Creatine Kinase Cancelled Creatine Kinase Index CK-MB (CK-2) Troponin I Cancelled B-Natriuretic Peptide Cancelled Total Protein Cancelled Albumin Cancelled Urine Color Ltyellow Urine Appearance Slcloudy Urine pH 5.0 Ur Specific [place] 1.010 Urine Protein 1+ H Urine Glucose (UA) Negative Urine Ketones Negative Urine Blood 1+ H Urine Nitrite Negative Urine Bilirubin Negative Urine Urobilinogen Negative Ur Leukocyte Esterase Negative Urine WBC (Auto) 1 Urine RBC (Auto) 2 Ur Epithelial Cells Rare Urine Bacteria Rare Hyaline Casts 3 10/27/17 21:45 WBC RBC Hgb Hct MCV MCH MCHC RDW Plt Count MPV Absolute Neuts (auto) Total Counted Neutrophils % Neutrophils % (Manual) Lymphocytes % Lymphocytes % (Manual) Monocytes % Monocytes % (Manual) Eosinophils % Eosinophils % (Manual) Basophils % Nucleated RBC % Hypochromia Platelet Estimate Platelet Comment Anisocytosis Microcytosis Sodium 144 Potassium 5.5 H Chloride 111 H Carbon Dioxide 25 Anion Gap 8 BUN 88 H Creatinine 3.5 H Creat Clearance w eGFR 12.84 Random Glucose 99 Calcium 8.2 L Total Bilirubin 0.2 AST 15 ALT 14 Alkaline Phosphatase 58 D Creatine Kinase 439 H Creatine Kinase Index 0.3 CK-MB (CK-2) 1.42 Troponin I < 0.02 B-Natriuretic Peptide 2258.57 H Total Protein 6.2 L Albumin 2.9 L Urine Color Urine Appearance Urine pH Ur Specific [place] Urine Protein Urine Glucose (UA) Urine Ketones Urine Blood Urine Nitrite Urine Bilirubin Urine Urobilinogen Ur Leukocyte Esterase Urine WBC (Auto) Urine RBC (Auto) Ur Epithelial Cells Urine Bacteria Hyaline Casts ASSESSMENT/PLAN: PT is a 72 y/o F with extensive PMH who presents with complaint of "feeling strange". Hist sig for episodes of shaking R hand. Labs significant for hyperK and elevated Scullion Chief, low Hb. CXR concerning for RUL process. #? RUE congestion vs mediast widening -Chest CT #? seizures -Pt reports monthly episodes of uncontrollable shaking of the right hand most recently coincident with and episode of 30 min of confusion -EEG -Neuro consult #CKD -Scullion Chief 3.5 stable -elevated K 5.5, unknown etiology -Nephro -c/w procrit #HyperK -unknown etiology -kayexelate #Afib -Metoprolol -Nifedipine #DM -BGM ACHS -ISS ACHS #CHF -BNP 2258 -received 40 lasix in ED -no pulm complaint -c/w aldactone, Torsemide, lasix #Anemia -stable from last visit -on Ferrex #COPD -Symbicort #Gout -Allopurinol #FEN -not on fluids -hyper K -DM, Na controlled diet #PPx -Hep SubQ #Dispo -Tele/Obs Dorian Ricardo MD PGY-2 IM Visit type - Emergency Visit Emergency Visit: Yes ED Registration Date: 10/28/17 Care time: The patient presented to the Emergency Department on the above date and was hospitalized for further evaluation of their emergent condition. - New Patient This patient is new to me today: Yes Date on this admission: 10/28/17 - Critical Care Critical Care patient: No Hospitalist Screening - Colonoscopy Questionnaire Colonoscopy Questionnaire: Colonoscopy Questionnaire - Patient: 50 - 75 years old and never had a screening colonoscopy: Unknown History of colon or rectal polyps, or CA: Unknown History of IBD, Crohn's disease or UC: Unknown History of abdominal radiation therapy as a child: Unknown - Relative: 1 with colon or rectal CA, or polyps at age 60 or younger: Unknown Colon or rectal CA diagnosed at age 45 or younger: Unknown Multiple relatives with colon or rectal CA: Unknown - Outcome: Screening Result: Negative Screen
[2017-10-28] MEDS ORDERED: METOCLOPRAMIDE HCL INJECTION 10 MG/2 ML VIAL ONE (05:27)
[2017-10-28] MEDS ORDERED: HEPARIN NA (PORCINE) 5,000 UNITS/ML 1ML VIAL ONE (05:28)
[2017-10-28] MEDS ORDERED: SODIUM POLYSTYRENE SULFONATE 15 GM/60 ML BOTTLE ONE (05:28)
[2017-10-28] MEDS ORDERED: IPRATROPIUM BR 0.02% 0.5 MG/2.5 ML VIAL.NEB. NEB PRN (05:51)
[2017-10-28] MEDS ORDERED: METOPROLOL TARTRATE 50 MG TABLET (FP) PO SCH (06:00)
[2017-10-28] MEDS: INSULIN SLIDING SCALE (NOVOLOG) 1 VIAL SQ SCH ×4 (06:21→22:06)
[2017-10-28] MEDS: GABAPENTIN 100 MG CAPSULE (FP) PO SCH ×3 (06:37→22:05)
[2017-10-28 06:49] LABS: BASO % 0.9 % (0-2.0); EOS % 3.1 % (0-4.5); HEMATOCRIT 29.6 % (32.4-45.2); HEMOGLOBIN 9.5 GM/dL (10.7-15.3); LYMPH % 20.5 % (8-40); MCH 27.9 pg (25.7-33.7); MCHC 31.9 g/dl (32.0-36.0); MEAN CELL VOLUME 87.3 fl (80-96); MEAN PLT VOLUME 8.1 fl (7.5-11.1); MONO % 7.4 % (3.8-10.2); NEUT % 68.1 % (42.8-82.8); PLATELET COUNT 155 K/MM3 (134-434); RBC 3.39 M/mm3 (3.60-5.2); RDW 17.3 % (11.6-15.6); WHITE BLOOD COUNT 8.5 K/mm3 (4.0-10.0)
[2017-10-28 07:26] LABS: ANION GAP 7 (8-16); BILIRUBIN,TOTAL 0.3 mg/dL (0.2-1.0); BLOOD UREA NITROGEN 84 mg/dL (7-18); CALCIUM 8.3 mg/dL (8.5-10.1); CHLORIDE 110 mmol/L (98-107); CO2 28 mmol/L (21-32); CREATININE 3.4 mg/dL (0.55-1.02); GLUCOSE,RANDOM 116 mg/dL (74-106); MAGNESIUM 2.3 mg/dL (1.8-2.4); PHOSPHOROUS 4.7 mg/dL (2.5-4.9); POTASSIUM 5.1 mmol/L (3.5-5.1); SGOT/AST 15 U/L (15-37); SGPT/ALT 13 U/L (12-78); SODIUM 145 mmol/L (136-145); TOT PROT 6.3 g/dl (6.4-8.2)
[2017-10-28 07:27] LABS: ALK PHOS 55 U/L (45-117)
[2017-10-28] MEDS ORDERED: CARVEDILOL 25 MG TABLET (FP) PO SCH (10:00)
[2017-10-28] MEDS ORDERED: TORSEMIDE 20 MG TABLET (FP) PO SCH (10:00)
[2017-10-28] MEDS ORDERED: SPIRONOLACTONE 25 MG TABLET (FP) PO SCH (10:00)
[2017-10-28] MEDS ORDERED: FUROSEMIDE 40 MG TABLET (FP) PO SCH (10:00)
--- NOTE | 2017-10-28 10:28 | CON.NEP ---
Consult Consult Specialty:: nephrology Reason for Consultation:: increasing confusion and hypokalemia - History of Present Illness Chief Complaint: i was confused History of Present Illness: Ms. Muse is a 72 y/o female who was brought in to [facility] ER, after she was noted to be increasingly confused at her retirement. She states that they tried waking her up and she could not remember where she was or even how to write a normal sentence. Next thing she knew, she had woken up in the hospital. Besides the confusion, she notes to have a R hand tremor that has been off and on for months. She has baseline dyspnea and uses oxygen at the retirement. But she denies any CP/N/V or problems urinating. Patient had a Cr of 3.4 on labs, prior Cr from 06/30/17 was 3.3- baseline CKD. - History Source History Provided By: Patient - Past Medical History Cardio/Vascular: Yes: AFIB (anticoagulants for 5 yrs , on coumadin), CHF, HTN, Hyperlipdemia. No: CAD Pulmonary: Yes: Asthma, COPD Gastrointestinal: Yes: Constipation, GERD, Other (does not remember about colonscopy ) Renal/: Yes: Renal Inusuff, UTI (h/o recurrent uti) Psych: Yes: Depression (because son at age 38 yrs by sucide ) Musculoskeletal: Yes: Osteoarthritis Endocrine: Yes: Diabetes Mellitus (IDDM since age 40 yrs ), Other (morbid obesity ) Additional Medical History: morbid obesity - Past Surgical History Past Surgical History: Yes: (40 years ago per patient), Tubal Ligation - Alcohol/Substance Use Hx Alcohol Use: No History of Substance Use: reports: None - Smoking History Smoking history: Never smoked Have you smoked in the past 12 months: No Aproximately how many cigarettes per day: 0 - Social History Usual Living Arrangement: Detention (for 2 yrs at [facility]) ADL: Support Services History of Recent Travel: No Home Medications - Allergies Allergies/Adverse Reactions: Allergies Allergy/AdvReac Type Severity Reaction Status Date / Time No Known Allergies Allergy Verified 10/14/17 17:13 - Home Medications Home Medications: Ambulatory Orders Allopurinol [Zyloprim -] 100 mg PO DAILY 10/14/17 Ascorbic Acid [C-500] 500 mg PO DAILY 10/14/17 Atorvastatin Calcium 10 mg PO HS 10/14/17 Bisacodyl [Gentle Laxative] 5 mg PO HS 10/14/17 Budesonide/Formeterol Fumarate [SYMBICORT 160/4.5mcg -] 1 inh PO BID 10/14/17 Carvedilol 25 mg PO DAILY 10/14/17 Cholecalciferol (Vitamin D3) [Vitamin D3] 1,000 unit PO DAILY 10/14/17 Docusate Sodium [Colace] 100 mg PO HS 10/14/17 Epoetin [place] [Procrit -] 10,000 unit IJ 10/14/17 Folic Acid 1 mg PO DAILY 10/14/17 Furosemide [Lasix -] 40 mg PO DAILY 10/14/17 Gabapentin [Neurontin -] 100 mg PO Q8H 10/14/17 Insulin Aspart [Novolog Flexpen] 5 unit SQ TID 10/14/17 Insulin Detemir [Levemir Flextouch] 33 unit SQ HS 10/14/17 Ipratropium [place] 0.2 mg IH Q6H PRN 10/14/17 Iron Polysaccharide Complex [Ferrex 150] 150 mg PO DAILY 10/14/17 Isosorbide Mononitrate 60 mg PO DAILY 10/14/17 Lactulose 30 gm PO HS 10/14/17 Metoprolol Tartrate 50 mg PO TID 10/14/17 Multivitamin [Multiple Vitamins] 1 each PO DAILY 10/14/17 Nifedipine ER [Procardia XL -] 90 mg PO DAILY 10/14/17 Oxycodone HCl/Acetaminophen [Percocet 5-325 mg Tablet] 2 tab PO TID 10/14/17 Ranitidine HCl 150 mg PO DAILY 10/14/17 Spironolactone [Aldactone] 25 mg PO DAILY 10/14/17 Torsemide 20 mg PO DAILY 10/14/17 Whey/Arginine/C/E/Malic/Citric [Argitein Powder Packet] 1 each PO TID 10/14/17 Nitrofurantoin Monohyd/M-Cryst [Macrobid -] 100 mg PO BID #10 capsule 10/18/17 Family Disease History - Family Disease History Family Disease History: Diabetes: Father ( age 44, complications DM), Mother ( age 83), Daughter (Alive, ESRD), Heart Disease: Mother, Other: Son (, age 38 suicide), Daughter Review of Systems - Review of Systems Constitutional: reports: No Symptoms Cardiovascular: denies: Chest Pain, Palpitations Respiratory: reports: SOB Gastrointestinal: denies: Abdominal Pain Neurological: reports: Tremors (right hand) Nephrology Consult - Height Height: 1.57 m - Weight Weight: 158.757 kg - BMI Body Mass Index (BMI): 64.0 - Lab Results CBC,BMP: CBC, BMP 10/28/17 06:20 10/28/17 06:20 Anion Gap: Anion Gap Anion Gap 7 (8-16) L 10/28/17 06:20 - Physical Examination Vital Signs: Vital Signs Temperature 98.5 F 10/27/17 18:12 Pulse Rate 60 10/28/17 06:48 Respiratory Rate 18 10/28/17 06:48 Blood Pressure 103/56 10/28/17 06:48 O2 Sat by Pulse Oximetry (%) 98 10/28/17 06:48 Constitutional: Yes: No Distress Cardiovascular: Yes: Regular Rate and Rhythm Respiratory: Yes: CTA Bilaterally Gastrointestinal: Yes: Normal Bowel Sounds, Soft, Abdomen, Obese Edema: Yes Edema: LLE: 3+, RLE: 3+ Neurological: Yes: Alert, Oriented Psychiatric: Yes: Alert Problem List - Problems (1) Hypokalemia Code(s): E87.6 - HYPOKALEMIA (2) Anemia Code(s): D64.9 - ANEMIA, UNSPECIFIED Qualifiers: Anemia type: unspecified type Qualified Code(s): D64.9 - Anemia, unspecified (3) Renal failure (ARF), acute on chronic Code(s): N17.9 - ACUTE KIDNEY FAILURE, UNSPECIFIED; N18.9 - CHRONIC KIDNEY DISEASE, UNSPECIFIED (4) Volume overload Code(s): E87.70 - FLUID OVERLOAD, UNSPECIFIED Qualifiers: Hypervolemia type: other Qualified Code(s): E87.79 - Other fluid overload Assessment/Plan patients Cr is at her baseline of 3.4 -start renal diet -restart lasix -monitor CMP and fluid status
--- NOTE | 2017-10-28 10:56 | PN ---
Progress Note (short form) - Note Progress Note: pt seen/ examined. chart reviewed comfortable no distress Vital Signs Temp 98.5 F 10/27/17 18:12 Pulse 60 10/28/17 06:48 Resp 18 10/28/17 06:48 BP 103/56 10/28/17 06:48 Pulse Ox 98 10/28/17 06:48 Intake & Output 10/27/17 10/27/17 10/28/17 11:59 23:59 11:59 Weight 350 lb 350 lb Other: Voiding Method Bedpan Height 5 ft 2 in 5 ft 2 in Body Mass Index (BMI) 64.0 64.0 Active Medications Allopurinol (Zyloprim -) 100 mg PO DAILY [facility] Ascorbic Acid (Vitamin C -) 500 mg PO DAILY [facility] Atorvastatin Calcium (Lipitor -) 10 mg PO HS [facility] Bisacodyl (Dulcolax -) 5 mg PO HS [facility] Budesonide/Formoterol Fumarate (Symbicort 160/4.5mcg -) 1 puff IH BID [facility] Carvedilol (Coreg -) 25 mg PO DAILY [facility] Cholecalciferol (Vitamin D3 -) 1,000 unit PO DAILY [facility] Docusate Sodium (Colace -) 100 mg PO HS [facility] Folic Acid (Folic Acid -) 1 mg PO DAILY [facility] Furosemide (Lasix -) 40 mg PO DAILY [facility] Gabapentin (Neurontin -) 100 mg PO TID [facility] Last Admin: 10/28/17 06:37 Dose: 100 mg Heparin Sodium (Porcine) (Heparin -) 5,000 unit SQ TID [facility] Insulin Aspart (Novolog Vial Sliding Scale -) 1 vial SQ ACHS [facility]; Protocol Last Admin: 10/28/17 06:21 Dose: Not Given Ipratropium [place] (Atrovent 0.02% Nebulizer -) 1 amp NEB Q6H PRN PRN Reason: SHORT OF BREATH/WHEEZING Isosorbide Mononitrate (Imdur -) 60 mg PO DAILY [facility] Metoprolol Tartrate (Lopressor -) 50 mg PO TID [facility] Last Admin: 10/28/17 07:00 Dose: Not Given Multivitamins/Minerals/Vitamin C (Tab-A-Vit -) 1 tab PO DAILY [facility] Nifedipine (Procardia Xl -) 90 mg PO DAILY [facility] Non-Formulary Medication ([place]/Arginine/C/E/Malic/Citric [Argitein Powder Packet ]) 1 each PO TID [facility] Polysaccharide Iron Complex (Niferex-150 -) 150 mg PO DAILY [facility] Ranitidine HCl (Zantac -) 150 mg PO DAILY [facility] Spironolactone (Aldactone -) 25 mg PO DAILY [facility] Torsemide (Demadex -) 20 mg PO DAILY [facility] CBC, BMP 10/28/17 06:20 18 06:20 ct chest - noted Physical exam' Constitutional: Yes: No Distress, Comfotable. Morbidly obese Cardiovascular: Yes: Pulse Irregular Respiratory: Yes: Diminished Gastrointestinal: Yes: Normal Bowel Sounds, Abdomen, Obese. No: Tenderness Edema: Yes Problem List - Problems (1) Afib Code(s): I48.91 - UNSPECIFIED ATRIAL FIBRILLATION Qualifiers: Atrial fibrillation type: unspecified Qualified Code(s): I48.91 - Unspecified atrial fibrillation (2) CHF (congestive heart failure) Code(s): I50.9 - HEART FAILURE, UNSPECIFIED (3) CKD (chronic kidney disease) Code(s): N18.9 - CHRONIC KIDNEY DISEASE, UNSPECIFIED Qualifiers: Chronic kidney disease stage: unspecified stage Qualified Code(s): N18.9 - Chronic kidney disease, unspecified Assessment/Plan continue present care monitor eeg meds reviewed will follow
--- NOTE | 2017-10-28 12:10 | EKG ---
Test Reason : Blood Pressure : / mmHG Vent. Rate : 058 BPM Atrial Rate : 058 BPM P-R Int : 240 ms QRS Dur : 098 ms QT Int : 450 ms P-R-T Axes : 068 046 070 degrees QTc Int : 441 ms POOR DATA QUALITY, INTERPRETATION MAY BE ADVERSELY AFFECTED SINUS BRADYCARDIA WITH SINUS ARRHYTHMIA WITH 1ST DEGREE A-V BLOCK OTHERWISE NORMAL ECG WHEN COMPARED WITH ECG OF 14-OCT-2017 17:16, SINUS RHYTHM HAS REPLACED ATRIAL FIBRILLATION Confirmed by RADHA VELASQUEZ, BISMARK ([id number]) on 10/28/2017 12:10:41 PM Referred By: Confirmed By:BISMARK GARCIA MD
[2017-10-28] MEDS: RANITIDINE HCL 150 MG TABLET (FP) PO SCH (12:29)
[2017-10-28] MEDS: CHOLECALCIFEROL (VITAMIN D3) 1,000 UNIT TABLET (FP) PO SCH (12:29)
[2017-10-28] MEDS: ALLOPURINOL 100 MG TABLET (FP) PO SCH (12:29)
[2017-10-28] MEDS: ASCORBIC ACID 500 MG TABLET (FP) PO SCH (12:30)
[2017-10-28] MEDS: NIFEdipine E.R. 90 MG TABLET (FP) PO SCH (12:30)
[2017-10-28] MEDS: ISOSORBIDE MONONITRATE 60 MG TAB.SR.24H (FP) PO SCH (12:30)
[2017-10-28] MEDS: MULTIVITAMINS (DAILY MVI) TABLET (FP) PO SCH (12:30)
[2017-10-28] MEDS: FOLIC ACID 1 MG TABLET (FP) PO SCH (12:30)
[2017-10-28] MEDS: BUDESONIDE/FORMETEROL FUMARATE 160/4.5 mcg INHALER IH SCH ×2 (12:30→22:29)
[2017-10-28] MEDS: IRON POLYSACCHARIDES 150 MG CAPSULE PO SCH (12:30)
[2017-10-28] MEDS: HEPARIN NA (PORCINE) 5,000 UNITS/ML 1ML VIAL SQ SCH ×2 (16:00→22:05)
[2017-10-28] MEDS ORDERED: PT OWN MED DRAWER 7, Y5N ONE ×2 (17:51→22:00)
--- NOTE | 2017-10-28 17:59 | PN ---
Teaching Attending Note Name of Resident: Estefanía Colorado (Nephrology) ATTENDING PHYSICIAN STATEMENT I saw and evaluated the patient. I reviewed the resident's note and discussed the case with the resident. I agree with the resident's findings and plan as documented. Renal Follow Up Pt is a 72 year old female with pmhx of CKD and morbid obesity who was sent in from the [facility] for malaise and dyspnea. It is not clear if she was on her lasix. She was recently discharged from the hospital. Current Medications Generic Name Dose Route Start Last Admin Trade Name Freq PRN Reason Stop Dose Admin Allopurinol 100 mg 10/28/17 10:00 10/28/17 12:29 Zyloprim - PO 100 mg DAILY [facility] Administration Ascorbic Acid 500 mg 10/28/17 10:00 10/28/17 12:30 Vitamin C - PO 500 mg DAILY [facility] Administration Atorvastatin Calcium 10 mg 10/28/17 22:00 Lipitor - PO HS [facility] Bisacodyl 5 mg 10/28/17 22:00 Dulcolax - PO HS [facility] Budesonide/Formoterol Fumarate 1 puff 10/28/17 10:00 10/28/17 12:30 Symbicort 160/4.5mcg - IH Not Given BID [facility] Carvedilol 25 mg 10/28/17 10:00 Coreg - PO DAILY [facility] Cholecalciferol 1,000 unit 10/28/17 10:00 10/28/17 12:29 Vitamin D3 - PO 1,000 unit DAILY [facility] Administration Docusate Sodium 100 mg 10/28/17 22:00 Colace - PO HS [facility] Folic Acid 1 mg 10/28/17 10:00 10/28/17 12:30 Folic Acid - PO 1 mg DAILY [facility] Administration Furosemide 40 mg 10/28/17 10:00 10/28/17 12:30 Lasix - PO 40 mg DAILY [facility] Administration Gabapentin 100 mg 10/28/17 06:00 10/28/17 16:00 Neurontin - PO 100 mg TID [facility] Administration Heparin Sodium (Porcine) 5,000 unit 10/28/17 07:34 10/28/17 16:00 Heparin - SQ 5,000 unit TID [facility] Administration Insulin Aspart 1 vial 10/28/17 07:00 10/28/17 17:46 Novolog Vial Sliding Scale - SQ 2 units ACHS [facility] Administration Protocol Ipratropium [place] 1 amp 10/28/17 05:51 Atrovent 0.02% Nebulizer - NEB Q6H PRN SHORT OF BREATH/WHEEZING Isosorbide Mononitrate 60 mg 10/28/17 10:00 10/28/17 12:30 Imdur - PO 60 mg DAILY [facility] Administration Multivitamins/Minerals/Vitamin C 1 tab 10/28/17 10:00 10/28/17 12:30 Tab-A-Vit - PO 1 tab DAILY [facility] Administration Nifedipine 90 mg 10/28/17 10:00 10/28/17 12:30 Procardia Xl - PO 90 mg DAILY [facility] Administration Polysaccharide Iron Complex 150 mg 10/28/17 10:00 10/28/17 12:30 Niferex-150 - PO 150 mg DAILY [facility] Administration Ranitidine HCl 150 mg 10/28/17 10:00 10/28/17 12:29 Zantac - PO 150 mg DAILY [facility] Administration Spironolactone 25 mg 10/28/17 10:00 10/28/17 12:30 Aldactone - PO 25 mg DAILY [facility] Administration Torsemide 20 mg 10/28/17 10:00 10/28/17 12:30 Demadex - PO 20 mg DAILY [facility] Administration cardio s1s2 reg pulm clear GI obese ext edema neuro awake and alert Impression 1. CKD 2. obesity 3. hyperlipidemia 4. HTN 5. DM 6. CHF 7. CAD 8. anemia 9. a-fib 10. iron deficiency Plan - renal function is not far from baseline - stop aldactone as her potassium was high yesterday and is borderline elevated today - pt on furosemide and torsemide, stop torsemide and cont lasix - can give metolazone if a second diuretic is needed - recommend that pt get a fistula however she does not want to - repeat labs in am - will give a dose of epogen
[2017-10-28] MEDS ORDERED: EPOETIN ALFA 10,000 UNIT/1 ML VIAL SQ ONE (18:00)
[2017-10-28] MEDS: FUROSEMIDE 40 MG TABLET (FP) PO SCH (18:29)
[2017-10-28] MEDS ORDERED: INSULIN (NOVOLOG) ASPART 100 UNITS/ML 10ML VIAL ONE (18:31)
[2017-10-28] MEDS: BISACODYL 5 MG TABLET.DR (FP) PO SCH (21:55)
[2017-10-28] MEDS: DOCUSATE SODIUM 100 MG CAPSULE (FP) PO SCH (21:55)
[2017-10-28] MEDS: ATORVASTATIN CA 10 MG TABLET (FP) PO SCH (22:05)
[2017-10-29] MEDS: HEPARIN NA (PORCINE) 5,000 UNITS/ML 1ML VIAL SQ SCH ×3 (06:28→21:55)
[2017-10-29] MEDS: INSULIN SLIDING SCALE (NOVOLOG) 1 VIAL SQ SCH ×4 (06:29→22:02)
[2017-10-29] MEDS: GABAPENTIN 100 MG CAPSULE (FP) PO SCH ×3 (06:29→21:55)
[2017-10-29] MEDS: FUROSEMIDE 40 MG TABLET (FP) PO SCH ×2 (06:29→15:02)
[2017-10-29 07:22] LABS: BASO % 0.6 % (0-2.0); EOS % 2.5 % (0-4.5); HEMATOCRIT 28.4 % (32.4-45.2); HEMOGLOBIN 9.2 GM/dL (10.7-15.3); LYMPH % 17.9 % (8-40); MCH 28.2 pg (25.7-33.7); MCHC 32.3 g/dl (32.0-36.0); MEAN CELL VOLUME 87.3 fl (80-96); MEAN PLT VOLUME 8.4 fl (7.5-11.1); MONO % 6.6 % (3.8-10.2); NEUT % 72.4 % (42.8-82.8); PLATELET COUNT 156 K/MM3 (134-434); RBC 3.25 M/mm3 (3.60-5.2); RDW 17.1 % (11.6-15.6)
[2017-10-29 08:54] LABS: ALBUMIN 2.8 g/dl (3.4-5.0); ANION GAP 8 (8-16); BLOOD UREA NITROGEN 84 mg/dL (7-18); CALCIUM 8.6 mg/dL (8.5-10.1); CHLORIDE 109 mmol/L (98-107); CO2 29 mmol/L (21-32); CREATININE 3.3 mg/dL (0.55-1.02); GLUCOSE,RANDOM 135 mg/dL (74-106); POTASSIUM 4.8 mmol/L (3.5-5.1); SGOT/AST 15 U/L (15-37); SGPT/ALT 14 U/L (12-78); SODIUM 146 mmol/L (136-145)
[2017-10-29 08:56] LABS: ALK PHOS 55 U/L (45-117); BILIRUBIN,TOTAL 0.2 mg/dL (0.2-1.0)
[2017-10-29] MEDS ORDERED: PT OWN MED DRAWER 7, Y5N ONE (10:06)
[2017-10-29] MEDS: ALLOPURINOL 100 MG TABLET (FP) PO SCH (10:17)
[2017-10-29] MEDS: NIFEdipine E.R. 90 MG TABLET (FP) PO SCH (10:17)
[2017-10-29] MEDS: RANITIDINE HCL 150 MG TABLET (FP) PO SCH (10:17)
[2017-10-29] MEDS: CHOLECALCIFEROL (VITAMIN D3) 1,000 UNIT TABLET (FP) PO SCH (10:18)
[2017-10-29] MEDS: BUDESONIDE/FORMETEROL FUMARATE 160/4.5 mcg INHALER IH SCH ×2 (10:18→21:56)
[2017-10-29] MEDS: IRON POLYSACCHARIDES 150 MG CAPSULE PO SCH (10:18)
[2017-10-29] MEDS: FOLIC ACID 1 MG TABLET (FP) PO SCH (10:18)
[2017-10-29] MEDS: MULTIVITAMINS (DAILY MVI) TABLET (FP) PO SCH (10:18)
[2017-10-29] MEDS: ASCORBIC ACID 500 MG TABLET (FP) PO SCH (10:18)
[2017-10-29] MEDS: ISOSORBIDE MONONITRATE 60 MG TAB.SR.24H (FP) PO SCH (10:18)
--- NOTE | 2017-10-29 11:47 | PN ---
Progress Note, Physician Chief Complaint: feeling [facility] Medication List Current Medications: Active Medications Allopurinol (Zyloprim -) 100 mg PO DAILY [facility] Last Admin: 10/29/17 10:17 Dose: 100 mg Ascorbic Acid (Vitamin C -) 500 mg PO DAILY [facility] Last Admin: 10/29/17 10:18 Dose: 500 mg Atorvastatin Calcium (Lipitor -) 10 mg PO [facility] Last Admin: 10/28/17 22:05 Dose: 10 mg Bisacodyl (Dulcolax -) 5 mg PO [facility] Last Admin: 10/28/17 21:55 Dose: Not Given Budesonide/Formoterol Fumarate (Symbicort 160/4.5mcg -) 1 puff IH BID [facility] Last Admin: 10/29/17 10:18 Dose: 1 puff Carvedilol (Coreg -) 25 mg PO DAILY [facility] Cholecalciferol (Vitamin D3 -) 1,000 unit PO DAILY [facility] Last Admin: 10/29/17 10:18 Dose: 1,000 unit Docusate Sodium (Colace -) 100 mg PO [facility] Last Admin: 10/28/17 21:55 Dose: Not Given Folic Acid (Folic Acid -) 1 mg PO DAILY [facility] Last Admin: 10/29/17 10:18 Dose: 1 mg Furosemide (Lasix -) 40 mg PO BID@0600,1400 [facility] Last Admin: 10/29/17 06:29 Dose: 40 mg Gabapentin (Neurontin -) 100 mg PO TID [facility] Last Admin: 10/29/17 06:29 Dose: 100 mg Heparin Sodium (Porcine) (Heparin -) 5,000 unit SQ TID [facility] Last Admin: 10/29/17 06:28 Dose: 5,000 unit Insulin Aspart (Novolog Vial Sliding Scale -) 1 vial SQ ACHS [facility]; Protocol Last Admin: 10/29/17 06:29 Dose: Not Given Ipratropium [place] (Atrovent 0.02% Nebulizer -) 1 amp NEB Q6H PRN PRN Reason: SHORT OF BREATH/WHEEZING Isosorbide Mononitrate (Imdur -) 60 mg PO DAILY [facility] Last Admin: 10/29/17 10:18 Dose: 60 mg Multivitamins/Minerals/Vitamin C (Tab-A-Vit -) 1 tab PO DAILY [facility] Last Admin: 10/29/17 10:18 Dose: 1 tab Nifedipine (Procardia Xl -) 90 mg PO DAILY [facility] Last Admin: 10/29/17 10:17 Dose: 90 mg Polysaccharide Iron Complex (Niferex-150 -) 150 mg PO DAILY [facility] Last Admin: 10/29/17 10:18 Dose: 150 mg Ranitidine HCl (Zantac -) 150 mg PO DAILY [facility] Last Admin: 10/29/17 10:17 Dose: 150 mg - Objective Vital Signs: Vital Signs Temperature 98 F 10/29/17 10:00 Pulse Rate 70 10/29/17 10:00 Respiratory Rate 20 10/29/17 10:00 Blood Pressure 134/68 10/29/17 10:00 O2 Sat by Pulse Oximetry (%) 98 10/28/17 23:33 Constitutional: Yes: No Distress, Calm Cardiovascular: Yes: Pulse Irregular Respiratory: Yes: Diminished Gastrointestinal: Yes: Normal Bowel Sounds, Abdomen, Obese. No: Tenderness Edema: Yes Labs: CBC, BMP 10/29/17 06:30 10/29/17 06:30 Problem List - Problems (1) Afib Code(s): I48.91 - UNSPECIFIED ATRIAL FIBRILLATION Qualifiers: Atrial fibrillation type: unspecified Qualified Code(s): I48.91 - Unspecified atrial fibrillation (2) CHF (congestive heart failure) Code(s): I50.9 - HEART FAILURE, UNSPECIFIED (3) CKD (chronic kidney disease) Code(s): N18.9 - CHRONIC KIDNEY DISEASE, UNSPECIFIED Qualifiers: Chronic kidney disease stage: unspecified stage Qualified Code(s): N18.9 - Chronic kidney disease, unspecified Assessment/Plan PLAN IV lasix continue with meds spoke with renal - ok to dc to NH on Lasix PO with Metalozone as needed Will need to follow up with Dr Harpal Xiao her Bright Cutter for AVF
--- NOTE | 2017-10-29 12:20 | CONSULT ---
Consult - Past Medical History Cardio/Vascular: Yes: AFIB (anticoagulants for 5 yrs , on coumadin), CHF, HTN, Hyperlipdemia. No: CAD Pulmonary: Yes: Asthma, COPD Gastrointestinal: Yes: Constipation, GERD, Other (does not remember about colonscopy ) Renal/: Yes: Renal Inusuff, UTI (h/o recurrent uti) Psych: Yes: Depression (because son at age 38 yrs by sucide ) Musculoskeletal: Yes: Osteoarthritis Endocrine: Yes: Diabetes Mellitus (IDDM since age 40 yrs ), Other (morbid obesity ) Additional Medical History: morbid obesity - Past Surgical History Past Surgical History: Yes: (40 years ago per patient), Tubal Ligation - Alcohol/Substance Use Hx Alcohol Use: No History of Substance Use: reports: None - Smoking History Smoking history: Never smoked Have you smoked in the past 12 months: No Aproximately how many cigarettes per day: 0 - Social History Usual Living Arrangement: Jail (for 2 yrs at [facility]) ADL: Support Services History of Recent Travel: No Home Medications - Allergies Allergies/Adverse Reactions: Allergies Allergy/AdvReac Type Severity Reaction Status Date / Time No Known Allergies Allergy Verified 10/14/17 17:13 - Home Medications Home Medications: Ambulatory Orders Allopurinol [Zyloprim -] 100 mg PO DAILY 10/14/17 Ascorbic Acid [C-500] 500 mg PO DAILY 10/14/17 Atorvastatin Calcium 10 mg PO HS 10/14/17 Bisacodyl [Gentle Laxative] 5 mg PO HS 10/14/17 Budesonide/Formeterol Fumarate [SYMBICORT 160/4.5mcg -] 1 inh PO BID 10/14/17 Carvedilol 25 mg PO DAILY 10/14/17 Cholecalciferol (Vitamin D3) [Vitamin D3] 1,000 unit PO DAILY 10/14/17 Docusate Sodium [Colace] 100 mg PO HS 10/14/17 Epoetin [place] [Procrit -] 10,000 unit IJ 10/14/17 Folic Acid 1 mg PO DAILY 10/14/17 Gabapentin [Neurontin -] 100 mg PO Q8H 10/14/17 Insulin Detemir [Levemir Flextouch] 33 unit SQ HS 10/14/17 Ipratropium [place] 0.2 mg IH Q6H PRN 10/14/17 Iron Polysaccharide Complex [Ferrex 150] 150 mg PO DAILY 10/14/17 Isosorbide Mononitrate 60 mg PO DAILY 10/14/17 Lactulose 30 gm PO HS 10/14/17 Metoprolol Tartrate 50 mg PO TID 10/14/17 Multivitamin [Multiple Vitamins] 1 each PO DAILY 10/14/17 Nifedipine ER [Procardia XL -] 90 mg PO DAILY 10/14/17 Oxycodone HCl/Acetaminophen [Percocet 5-325 mg Tablet] 2 tab PO TID 10/14/17 Ranitidine HCl 150 mg PO DAILY 10/14/17 Whey/Arginine/C/E/Malic/Citric [Argitein Powder Packet] 1 each PO TID 10/14/17 Furosemide [Lasix -] 40 mg PO BID@0600,1400 #60 tablet 10/29/17 Metolazone [Zaroxolyn -] 5 mg PO DAILY PRN #14 tablet 10/29/17 Family Disease History - Family Disease History Family Disease History: Diabetes: Father ( age 44, complications DM), Mother ( age 83), Daughter (Alive, ESRD), Heart Disease: Mother, Other: Son (, age 38 suicide), Daughter Physical Exam Vital Signs: Vital Signs Temperature 98 F 10/29/17 10:00 Pulse Rate 70 10/29/17 10:00 Respiratory Rate 20 10/29/17 10:00 Blood Pressure 134/68 10/29/17 10:00 O2 Sat by Pulse Oximetry (%) 98 10/28/17 23:33 Labs: CBC, BMP 10/29/17 06:30 10/29/17 06:30
--- NOTE | 2017-10-29 13:39 | PN ---
Progress Note (short form) - Note Progress Note: RENAL Pt is awake and alert says she feels better Last Vital Signs Temp Pulse Resp BP Pulse Ox 98 F 70 20 134/68 98 10/29/17 10:00 10/29/17 10:00 10/29/17 10:00 10/29/17 10:00 10/28/17 23:33 morbidly obese woman lungs clear anteriorly cvs s1s2 rr abd soft ext no edema neuro a+ox3 CBC, BMP 10/29/17 06:30 10/29/17 06:30 Current Medications Generic Name Dose Route Start Last Admin Trade Name Freq PRN Reason Stop Dose Admin Allopurinol 100 mg 10/28/17 10:00 10/29/17 10:17 Zyloprim - PO 100 mg DAILY [facility] Administration Ascorbic Acid 500 mg 10/28/17 10:00 10/29/17 10:18 Vitamin C - PO 500 mg DAILY [facility] Administration Atorvastatin Calcium 10 mg 10/28/17 22:00 10/28/17 22:05 Lipitor - PO 10 mg HS [facility] Administration Bisacodyl 5 mg 10/28/17 22:00 10/28/17 21:55 Dulcolax - PO Not Given HS [facility] Budesonide/Formoterol Fumarate 1 puff 10/28/17 10:00 10/29/17 10:18 Symbicort 160/4.5mcg - IH 1 puff BID [facility] Administration Carvedilol 25 mg 10/28/17 10:00 Coreg - PO DAILY [facility] Cholecalciferol 1,000 unit 10/28/17 10:00 10/29/17 10:18 Vitamin D3 - PO 1,000 unit DAILY [facility] Administration Docusate Sodium 100 mg 10/28/17 22:00 10/28/17 21:55 Colace - PO Not Given HS [facility] Folic Acid 1 mg 10/28/17 10:00 10/29/17 10:18 Folic Acid - PO 1 mg DAILY [facility] Administration Furosemide 40 mg 10/28/17 18:00 10/29/17 06:29 Lasix - PO 40 mg BID@0600,1400 [facility] Administration Gabapentin 100 mg 10/28/17 06:00 10/29/17 06:29 Neurontin - PO 100 mg TID [facility] Administration Heparin Sodium (Porcine) 5,000 unit 10/28/17 07:34 10/29/17 06:28 Heparin - SQ 5,000 unit TID [facility] Administration Insulin Aspart 1 vial 10/28/17 07:00 10/29/17 12:28 Novolog Vial Sliding Scale - SQ 2 units ACHS [facility] Administration Protocol Ipratropium [place] 1 amp 10/28/17 05:51 Atrovent 0.02% Nebulizer - NEB Q6H PRN SHORT OF BREATH/WHEEZING Isosorbide Mononitrate 60 mg 10/28/17 10:00 10/29/17 10:18 Imdur - PO 60 mg DAILY [facility] Administration Multivitamins/Minerals/Vitamin C 1 tab 10/28/17 10:00 10/29/17 10:18 Tab-A-Vit - PO 1 tab DAILY [facility] Administration Nifedipine 90 mg 10/28/17 10:00 10/29/17 10:17 Procardia Xl - PO 90 mg DAILY [facility] Administration Polysaccharide Iron Complex 150 mg 10/28/17 10:00 10/29/17 10:18 Niferex-150 - PO 150 mg DAILY [facility] Administration Ranitidine HCl 150 mg 10/28/17 10:00 10/29/17 10:17 Zantac - PO 150 mg DAILY [facility] Administration Impression 1. CKD 2. obesity 3. hyperlipidemia 4. HTN 5. DM 6. CHF 7. CAD 8. anemia 9. a-fib 10. iron deficiency Plan continue lasix keep off spironolactone metolazone prn she is agreeing to avf. So I referred her to primary electric clock mechanic SUNI
--- NOTE | 2017-10-29 19:56 | CONSULT ---
Consult - text type - Consultation Consultation Note: NEUROLOGY CONSULTATION is greatly appreciated: Events reviewed, patient examined. This 72 yo RH s woman is a retired [employer] with complex medical history of HTN, Chol , DM, CHF, AFib, COPD, Gout, GERD, Anemia, RI, OA and morbid obesity. O2 dependent. On coumadin in the past. Currently Maintained on: Allopurinol; Atorvastatin; SYMBICORT; Carvedilol; Colace; Procrit; Furosemide; Gabapentin; Insulins; Ipratropium; Iron; Isosorbide; Lactulose; metoprolol; Nifedipine; Oxycodone; Ranitidine; Spironolactone; Torsemide; and Nitrofurantoin. Hasn't walked in > 1 year- attributed to knee arthritis. Prior to this had gradual deterioration in gait requiring a walker Awoke on day of admission with a "funny feeling" described as confusion, blurred vision, disorientation and increase in chronic shaking of the right hand (x6 mos). In ED: Cr/BUN=3.3/84 Now feels back to normal. HELIO: Normocephalic. No bruits. Neck supple. frozen left shoulder. atrophic skin changes both legs. NEURO: awake, alert, oriented x 3. Trump. reverses. recalls 2 of 3 at 3. No frontal release findings. fluent speech CN II-XII normal Motor: Normal strength right arm and left arm distally. Proximal strength in left arm difficult to access due to pain. Moderate proximal weakness in both legs. Ankle dorsiflexion 4+/5. Plantars silent. Areflexic Intermittent rest tremor and mild cogwheel rigidity (R>L) Coord: No right FTN dystaxia Sensory: reduced vib to the ankles. IMP: Non-focal exam sig for Moderate peripheral neuropathy presumable due to Diabetes. The tremor is extrapyramidal (Parkinsonian) in etiology. Etiology of the transient confusional state remains undertain. Doubt a focal vascular event such as TIA. Rather would favor a toxic-metabolic encephalopathy as could be seen with transient hypoglycemia during sleep, or CO2 retention due to COPD +/- Obstructive sleep apnea (DANIAL), or occult infection. SUGGEST: Check B12, ESR, TSH, T4. AM Glucose. PFT's. ABG R/O occult infection Neuroimaging of the brain (if possible) If episode recurs- EEG If tremor worsens- Sinemet CR 25/100 TID with meals and Neuro f/ u. PT, heat and ROM for left shoulder calcific bursitis. Thank you very much, Issa Rebolledo MD
[2017-10-29] MEDS: BISACODYL 5 MG TABLET.DR (FP) PO SCH (21:55)
[2017-10-29] MEDS: ATORVASTATIN CA 10 MG TABLET (FP) PO SCH (21:55)
[2017-10-29] MEDS: DOCUSATE SODIUM 100 MG CAPSULE (FP) PO SCH (21:55)
[2017-10-29] MEDS ORDERED: CARVEDILOL 12.5 MG TABLET (FP) PO ONE (23:00)
[2017-10-30] MEDS: HEPARIN NA (PORCINE) 5,000 UNITS/ML 1ML VIAL SQ SCH ×2 (06:23→13:51)
[2017-10-30] MEDS: GABAPENTIN 100 MG CAPSULE (FP) PO SCH ×2 (06:23→13:51)
[2017-10-30] MEDS: FUROSEMIDE 40 MG TABLET (FP) PO SCH ×2 (06:23→13:51)
[2017-10-30] MEDS: INSULIN SLIDING SCALE (NOVOLOG) 1 VIAL SQ SCH ×2 (06:24→11:55)
[2017-10-30] MEDS ORDERED: METOPROLOL TARTRATE 50 MG TABLET (FP) PO ONE (08:45)
[2017-10-30] MEDS ORDERED: PT OWN MED DRAWER 7, Y5N ONE (09:01)
[2017-10-30 09:34] LABS: INR 2.68 (0.82-1.09); PROTHROMBIN TIME (PATIENT) 30.3 SEC (9.7-13.0)
[2017-10-30] MEDS: CHOLECALCIFEROL (VITAMIN D3) 1,000 UNIT TABLET (FP) PO SCH (09:39)
[2017-10-30] MEDS: ISOSORBIDE MONONITRATE 60 MG TAB.SR.24H (FP) PO SCH (09:39)
[2017-10-30] MEDS: NIFEdipine E.R. 90 MG TABLET (FP) PO SCH (09:39)
[2017-10-30] MEDS: RANITIDINE HCL 150 MG TABLET (FP) PO SCH (09:39)
[2017-10-30] MEDS: ASCORBIC ACID 500 MG TABLET (FP) PO SCH (09:39)
[2017-10-30] MEDS: MULTIVITAMINS (DAILY MVI) TABLET (FP) PO SCH (09:39)
[2017-10-30] MEDS: ALLOPURINOL 100 MG TABLET (FP) PO SCH (09:39)
[2017-10-30] MEDS: FOLIC ACID 1 MG TABLET (FP) PO SCH (09:40)
[2017-10-30] MEDS: BUDESONIDE/FORMETEROL FUMARATE 160/4.5 mcg INHALER IH SCH (09:40)
[2017-10-30] MEDS: IRON POLYSACCHARIDES 150 MG CAPSULE PO SCH (09:40)
[2017-10-30 10:37] VITALS: TEMP 98.8
--- NOTE | 2017-10-30 10:47 | PN ---
Progress Note (short form) - Note Progress Note: see dc summary Vital Signs - 24 hr 10/29/17 10/29/17 10/29/17 14:00 18:00 20:25 Temperature 98.1 F 98.3 F Pulse Rate 69 136 H Respiratory 20 20 20 Rate Blood Pressure 153/61 113/61 O2 Sat by Pulse 98 Oximetry (%) 10/30/17 10/30/17 10/30/17 02:00 06:00 09:47 Temperature 99.2 F 98.6 F Pulse Rate 65 73 Respiratory 20 20 20 Rate Blood Pressure 128/55 154/58 O2 Sat by Pulse 98 98 Oximetry (%) 10/30/17 10:00 Temperature 98.8 F Pulse Rate 68 Respiratory 20 Rate Blood Pressure 145/62 O2 Sat by Pulse Oximetry (%) Current Medications Generic Name Dose Route Start Last Admin Trade Name Freq PRN Reason Stop Dose Admin Allopurinol 100 mg 10/28/17 10:00 10/30/17 09:39 Zyloprim - PO 100 mg DAILY [facility] Administration Ascorbic Acid 500 mg 10/28/17 10:00 10/30/17 09:39 Vitamin C - PO 500 mg DAILY [facility] Administration Atorvastatin Calcium 10 mg 10/28/17 22:00 10/29/17 21:55 Lipitor - PO 10 mg HS [facility] Administration Bisacodyl 5 mg 10/28/17 22:00 10/29/17 21:55 Dulcolax - PO 5 mg HS [facility] Administration Budesonide/Formoterol Fumarate 1 puff 10/28/17 10:00 10/30/17 09:40 Symbicort 160/4.5mcg - IH 1 puff BID [facility] Administration Cholecalciferol 1,000 unit 10/28/17 10:00 10/30/17 09:39 Vitamin D3 - PO 1,000 unit DAILY [facility] Administration Docusate Sodium 100 mg 10/28/17 22:00 10/29/17 21:55 Colace - PO 100 mg HS [facility] Administration Folic Acid 1 mg 10/28/17 10:00 10/30/17 09:40 Folic Acid - PO 1 mg DAILY [facility] Administration Furosemide 40 mg 10/28/17 18:00 10/30/17 06:23 Lasix - PO 40 mg BID@0600,1400 [facility] Administration Gabapentin 100 mg 10/28/17 06:00 10/30/17 06:23 Neurontin - PO 100 mg TID [facility] Administration Heparin Sodium (Porcine) 5,000 unit 10/28/17 07:34 10/30/17 06:23 Heparin - SQ 5,000 unit TID [facility] Administration Insulin Aspart 1 vial 10/28/17 07:00 10/30/17 06:24 Novolog Vial Sliding Scale - SQ Not Given ACHS [facility] Protocol Ipratropium [place] 1 amp 10/28/17 05:51 Atrovent 0.02% Nebulizer - NEB Q6H PRN SHORT OF BREATH/WHEEZING Isosorbide Mononitrate 60 mg 10/28/17 10:00 10/30/17 09:39 Imdur - PO 60 mg DAILY [facility] Administration Metoprolol Tartrate 50 mg 10/30/17 14:00 Lopressor - PO TID [facility] Multivitamins/Minerals/Vitamin C 1 tab 10/28/17 10:00 10/30/17 09:39 Tab-A-Vit - PO 1 tab DAILY [facility] Administration Nifedipine 90 mg 10/28/17 10:00 10/30/17 09:39 Procardia Xl - PO 90 mg DAILY [facility] Administration Polysaccharide Iron Complex 150 mg 10/28/17 10:00 10/30/17 09:40 Niferex-150 - PO 150 mg DAILY [facility] Administration Ranitidine HCl 150 mg 10/28/17 10:00 10/30/17 09:39 Zantac - PO 150 mg DAILY [facility] Administration Laboratory Results - last 24 hr 10/29/17 10/29/17 10/29/17 11:39 16:46 21:58 PT with INR INR POC Glucometer 190 188 164 10/30/17 10/30/17 05:21 09:04 PT with INR 30.30 H INR 2.68 H POC Glucometer 123
[2017-10-30] MEDS ORDERED: INSULIN (NOVOLOG) ASPART 100 UNITS/ML 10ML VIAL ONE (11:54)
[2017-10-30] MEDS ORDERED: METOPROLOL TARTRATE 50 MG TABLET (FP) PO SCH (14:00)
--- NOTE | 2017-10-30 15:06 | PN ---
Progress Note (short form) - Note Progress Note: RENAL Pt is awake and alert says she feels better Last Vital Signs Temp Pulse Resp BP Pulse Ox 98.8 F 68 20 145/62 98 10/30/17 10:00 10/30/17 10:00 10/30/17 10:00 10/30/17 10:00 10/30/17 09:47 morbidly obese woman lungs clear anteriorly cvs s1s2 rr abd soft ext + edema neuro a+ox3 CBC, BMP 10/29/17 06:30 10/29/17 06:30 Current Medications Generic Name Dose Route Start Last Admin Trade Name Freq PRN Reason Stop Dose Admin Allopurinol 100 mg 10/28/17 10:00 10/30/17 09:39 Zyloprim - PO 100 mg DAILY [facility] Administration Ascorbic Acid 500 mg 10/28/17 10:00 10/30/17 09:39 Vitamin C - PO 500 mg DAILY [facility] Administration Atorvastatin Calcium 10 mg 10/28/17 22:00 10/29/17 21:55 Lipitor - PO 10 mg HS [facility] Administration Bisacodyl 5 mg 10/28/17 22:00 10/29/17 21:55 Dulcolax - PO 5 mg HS [facility] Administration Budesonide/Formoterol Fumarate 1 puff 10/28/17 10:00 10/30/17 09:40 Symbicort 160/4.5mcg - IH 1 puff BID [facility] Administration Cholecalciferol 1,000 unit 10/28/17 10:00 10/30/17 09:39 Vitamin D3 - PO 1,000 unit DAILY [facility] Administration Docusate Sodium 100 mg 10/28/17 22:00 10/29/17 21:55 Colace - PO 100 mg HS [facility] Administration Folic Acid 1 mg 10/28/17 10:00 10/30/17 09:40 Folic Acid - PO 1 mg DAILY [facility] Administration Furosemide 40 mg 10/28/17 18:00 10/30/17 13:51 Lasix - PO 40 mg BID@0600,1400 [facility] Administration Gabapentin 100 mg 10/28/17 06:00 10/30/17 13:51 Neurontin - PO 100 mg TID [facility] Administration Heparin Sodium (Porcine) 5,000 unit 10/28/17 07:34 10/30/17 13:51 Heparin - SQ 5,000 unit TID [facility] Administration Insulin Aspart 1 vial 10/28/17 07:00 10/30/17 11:55 Novolog Vial Sliding Scale - SQ 2 units ACHS [facility] Administration Protocol Ipratropium [place] 1 amp 10/28/17 05:51 Atrovent 0.02% Nebulizer - NEB Q6H PRN SHORT OF BREATH/WHEEZING Isosorbide Mononitrate 60 mg 10/28/17 10:00 10/30/17 09:39 Imdur - PO 60 mg DAILY [facility] Administration Metoprolol Tartrate 50 mg 10/30/17 14:00 10/30/17 13:51 Lopressor - PO 50 mg TID [facility] Administration Multivitamins/Minerals/Vitamin C 1 tab 10/28/17 10:00 10/30/17 09:39 Tab-A-Vit - PO 1 tab DAILY [facility] Administration Nifedipine 90 mg 10/28/17 10:00 10/30/17 09:39 Procardia Xl - PO 90 mg DAILY [facility] Administration Polysaccharide Iron Complex 150 mg 10/28/17 10:00 10/30/17 09:40 Niferex-150 - PO 150 mg DAILY [facility] Administration Ranitidine HCl 150 mg 10/28/17 10:00 10/30/17 09:39 Zantac - PO 150 mg DAILY [facility] Administration Impression 1. CKD 2. obesity 3. hyperlipidemia 4. HTN 5. DM 6. CHF 7. CAD 8. anemia 9. a-fib 10. iron deficiency Plan continue lasix keep off spironolactone metolazone prn she is agreeing to avf. So I referred her to primary garment sorter MV
--- NOTE | 2017-10-30 15:17 | EKG ---
Test Reason : Blood Pressure : / mmHG Vent. Rate : 070 BPM Atrial Rate : 070 BPM P-R Int : 000 ms QRS Dur : 102 ms QT Int : 418 ms P-R-T Axes : 000 035 070 degrees QTc Int : 451 ms ATRIAL FIBRILLATION ABNORMAL ECG WHEN COMPARED WITH ECG OF 27-OCT-2017 18:47, ATRIAL FIBRILLATION HAS REPLACED SINUS RHYTHM Confirmed by BISMARK GARCIA MD ([id number]) on 10/30/2017 3:17:02 PM Referred By: Confirmed By:BISMARK GARCIA MD
--- NOTE | 2017-10-30 15:19 | EKG ---
Test Reason : Blood Pressure : / mmHG Vent. Rate : 137 BPM Atrial Rate : 137 BPM P-R Int : 000 ms QRS Dur : 094 ms QT Int : 288 ms P-R-T Axes : 000 028 163 degrees QTc Int : 434 ms ATRIAL FIBRILLATION NONSPECIFIC ST AND T WAVE ABNORMALITY ABNORMAL ECG Confirmed by BISMARK GARCIA MD ([id number]) on 10/30/2017 3:18:42 PM Referred By: Confirmed By:BISMARK GARCIA MD
[2017-10-30 15:28] VITALS: BP 138/65; PULSE 63
--- NOTE | 2017-10-30 16:08 | DS ---
Physical Examination Vital Signs: Vital Signs Temperature 98.8 F 10/30/17 14:00 Pulse Rate 63 10/30/17 14:00 Respiratory Rate 20 10/30/17 14:00 Blood Pressure 138/65 10/30/17 14:00 O2 Sat by Pulse Oximetry (%) 98 10/30/17 09:47 Constitutional: Yes: No Distress, Calm Cardiovascular: Yes: Pulse Irregular Respiratory: Yes: Diminished Gastrointestinal: Yes: Normal Bowel Sounds, Soft, Abdomen, Obese. No: Tenderness Edema: Yes (decreased) Labs: CBC, BMP 10/29/17 06:30 10/29/17 06:30 Discharge Summary Reason For Visit: ACUTE ON CHRONIC CHF Hospital Course: Admitted for acute CHF She also has CKD 4 Seen by Renal - on Lasix IV BID Renal function same Pt diuresed well Heart rate controlled with Metoprolol INR therapeutic Evaluated by Neurology for AMS pt clinically better no signs of infection afebrile No elevated WBC pt stable for dc to NH on PO Lasix will need to follow up with Dr Xiao - Nephrology Condition: Improved - Instructions Referrals: Harpal Xiao MD [Staff Physician] - Diana Whitmore MD [Primary Care Provider] - Disposition: [facility] - Home Medications Comprehensive Discharge Medication List: Ambulatory Orders Allopurinol [Zyloprim -] 100 mg PO DAILY 10/14/17 Ascorbic Acid [C-500] 500 mg PO DAILY 10/14/17 Atorvastatin Calcium 10 mg PO HS 10/14/17 Bisacodyl [Gentle Laxative] 5 mg PO HS 10/14/17 Budesonide/Formeterol Fumarate [SYMBICORT 160/4.5mcg -] 1 inh PO BID 10/14/17 Carvedilol 25 mg PO DAILY 10/14/17 Cholecalciferol (Vitamin D3) [Vitamin D3] 1,000 unit PO DAILY 10/14/17 Docusate Sodium [Colace] 100 mg PO HS 10/14/17 Epoetin [place] [Procrit -] 10,000 unit IJ 10/14/17 Folic Acid 1 mg PO DAILY 10/14/17 Gabapentin [Neurontin -] 100 mg PO Q8H 10/14/17 Insulin Detemir [Levemir Flextouch] 33 unit SQ HS 10/14/17 Ipratropium [place] 0.2 mg IH Q6H PRN 07/06/18 Iron Polysaccharide Complex [Ferrex 150] 150 mg PO DAILY 10/14/17 Isosorbide Mononitrate 60 mg PO DAILY 10/14/17 Lactulose 30 gm PO HS 10/14/17 Metoprolol Tartrate 50 mg PO TID 10/14/17 Multivitamin [Multiple Vitamins] 1 each PO DAILY 10/14/17 Nifedipine ER [Procardia XL -] 90 mg PO DAILY 10/14/17 Oxycodone HCl/Acetaminophen [Percocet 5-325 mg Tablet] 2 tab PO TID 10/14/17 Ranitidine HCl 150 mg PO DAILY 10/14/17 Whey/Arginine/C/E/Malic/Citric [Argitein Powder Packet] 1 each PO TID 10/14/17 Furosemide [Lasix -] 40 mg PO BID@0600,1400 #60 tablet 10/29/17 Metolazone [Zaroxolyn -] 5 mg PO DAILY PRN #14 tablet 10/29/17
== END 2017-10-30 15:34 ==
LOC: JER 17:54 → JERBED 10-28 00:17 → UNDOADMOB 10-28 00:25 → JERBED 10-28 00:25 → J4S 10-28 16:46
PROVIDERS: ADMIT Internal Medicine; ATTEND Internal Medicine
PROC: 3E033GC Introduction of Other Therapeutic Substance into Peripheral Vein, Percutaneous Approach (ICD-10-PCS; principal; 2017-10-28)
PROC: 3E013VG Introduction of Insulin into Subcutaneous Tissue, Percutaneous Approach (ICD-10-PCS; 2017-10-28)
PROC: 3E013GC Introduction of Other Therapeutic Substance into Subcutaneous Tissue, Percutaneous Approach (ICD-10-PCS; 2017-10-28)
PROC: 3E0F7GC Introduction of Other Therapeutic Substance into Respiratory Tract, Via Natural or Artificial Opening (ICD-10-PCS; 2017-10-28)
DX: I50.33 Acute on chronic diastolic (congestive) heart failure (principal); I13.0 Hypertensive heart and chronic kidney disease with heart failure and stage 1 through stage 4 chronic kidney disease, or unspecified chronic kidney disease; N18.4 Chronic kidney disease, stage 4 (severe); N17.9 Acute kidney failure, unspecified; E11.22 Type 2 diabetes mellitus with diabetic chronic kidney disease; E78.5 Hyperlipidemia, unspecified; E66.01 Morbid (severe) obesity due to excess calories; E87.5 Hyperkalemia; E87.79 Other fluid overload; E88.09 Other disorders of plasma-protein metabolism, not elsewhere classified; I48.91 Unspecified atrial fibrillation; M19.90 Unspecified osteoarthritis, unspecified site; J44.9 Chronic obstructive pulmonary disease, unspecified; K21.9 Gastro-esophageal reflux disease without esophagitis; L89.321 Pressure ulcer of left buttock, stage 1; M10.9 Gout, unspecified; G62.9 Polyneuropathy, unspecified; D63.1 Anemia in chronic kidney disease; R41.82 Altered mental status, unspecified; Z68.44 Body mass index [BMI] 60.0-69.9, adult; Z87.440 Personal history of urinary (tract) infections; Z79.4 Long term (current) use of insulin
CPT/HCPCS: 36415; 71045-TC-FY; 71250-TC; 80048; 80053; 81003; 81015; 82550; 82553; 82962; 83735; 83880; 84100; 84484; 85025; 85610; 93005; 93010; 94640; 95816; 96372; 96374; 99284-25; G0378; J0885; J1644

== ENCOUNTER 2017-11-11 04:52 | Inpatient (IN) | payer OTHER ==
[2017-11-11] MEDS ORDERED: SODIUM CHLORIDE 1,000 ML IV SCH (05:00)
--- NOTE | 2017-11-11 05:01 | PDOC ---
History of Present Illness - General Stated Complaint: ALTERED MENTAL STATUS - History of Present Illness Initial Comments: 11/11/17 05:25 The patient is a 72 year old female with a history of HTN, HLD, DM, CHF, arthritis, morbid Obesity, COPD, Afib, GERD, GOUT, anemia who presents for evaluation of a possible stroke. The patient presents from her NH where she was noted to have slurred speech, right arm weakness, and facial asymmetry at about 2:30am. The patient denies similar symptoms in the past. She states that she is unable to ambulate at baseline and has a frozen left shoulder, but notes new weakness in her right arm and notes that she feels like she is "speaking funny." The patient otherwise denies fevers, chills, SOB, chest pain , nausea, vomiting, abdominal pain, numbness, tingling or changes with urination or bowel movements. tPA Exclusion checklist 3-4.5h - Time Elapsed Date last known well: 11/11/17 Time last known well: 02:30 Elaspsed time: 2 Day(s) and 14 Hour(s) and 1 Minutes - Thrombolytic Therapy Candidate Is patient eligible for thrombolytic therapy: No - Relative Exclusion Criteria 3-4.5 hr Life expectancy <1 yr or severe co-morbid illness: Yes Stroke severity too mild: Yes - Add'l Relative Exclusion 3-4.5 hr Taking an oral anticoagulant regardless of INR: Yes - Ineligibility reason(s) Reasons No tPA given: See reason(s) noted above NIH Stroke Scale - Last Known Well Date/Time & Onset Date Last Known Well: 11/11/17 Time Last Known Well: 02:30 - Initial Evaluation Level of consciousness: Alert Ask patient the month and their age: Answers both correctly Ask patient to open & close eyes; make fist and let go: Obeys both correctly Best gaze (horizontal eye movement): Normal Visual field testing: No visual field loss Facial paresis (Show teeth/raise eyebrows/close eyes tight): Minor paralysis ( flattened nasolabial fold, asymmetry on smiling) Motor Function: Left Arm: Untestable (Joint fused orlimb amputated), explain: ( Frozen Shoulder) Motor Function: Right Arm: Some effort against gravity Motor Function: Left Leg: Some effort against gravity (Inability to ambulate at baseline) Motor Function: Right Leg: Some effort against gravity Limb Ataxia: Untestable (Joint fused or limb amputated), explain: Sensory(Use pinprick test arms,legs,trunk,face/side to side): Normal Best language (Describe picture, name items, read sentences): No Aphasia Dysarthria (read several words): Mild to moderate slurring of words Extinction and Inattention: No abnormality - Total Score NIH Stroke Scale Score: 8 Past History - Past Medical History Allergies/Adverse Reactions: Allergies Allergy/AdvReac Type Severity Reaction Status Date / Time No Known Allergies Allergy Verified 10/14/17 17:13 Home Medications: Ambulatory Orders Allopurinol [Zyloprim -] 100 mg PO DAILY 10/14/17 Ascorbic Acid [C-500] 500 mg PO DAILY 10/14/17 Atorvastatin Calcium 10 mg PO HS 10/14/17 Bisacodyl [Gentle Laxative] 5 mg PO HS 10/14/17 Budesonide/Formeterol Fumarate [SYMBICORT 160/4.5mcg -] 1 inh PO BID 10/14/17 Carvedilol 25 mg PO DAILY 10/14/17 Cholecalciferol (Vitamin D3) [Vitamin D3] 1,000 unit PO DAILY 10/14/17 Docusate Sodium [Colace] 100 mg PO HS 10/14/17 Folic Acid 1 mg PO DAILY 10/14/17 Gabapentin [Neurontin -] 100 mg PO Q8H 10/14/17 Insulin Detemir [Levemir Flextouch] 33 unit SQ HS 10/14/17 Ipratropium [place] 0.2 mg IH Q6H PRN 10/14/17 Iron Polysaccharide Complex [Ferrex 150] 150 mg PO DAILY 10/14/17 Isosorbide Mononitrate 60 mg PO DAILY 10/14/17 Lactulose 30 gm PO HS 10/14/17 Metoprolol Tartrate 50 mg PO TID 10/14/17 Multivitamin [Multiple Vitamins] 1 each PO DAILY 10/14/17 Nifedipine ER [Procardia XL -] 90 mg PO DAILY 10/14/17 Oxycodone HCl/Acetaminophen [Percocet 5-325 mg Tablet] 2 tab PO TID 10/14/17 Ranitidine HCl 150 mg PO DAILY 10/14/17 Whey/Arginine/C/E/Malic/Citric [Argitein Powder Packet] 1 each PO TID 10/14/17 Furosemide [Lasix -] 40 mg PO BID@0600,1400 #60 tablet 10/29/17 Metolazone [Zaroxolyn -] 5 mg PO DAILY PRN #14 tablet 10/29/17 Anemia: Yes Asthma: Yes Cancer: No Cardiac Disorders: Yes (atrial fibrilation) CVA: No COPD: Yes CHF: Yes Dementia: No Diabetes: Yes GI Disorders: Yes (GERD) Disorders: Yes (UTI) HTN: Yes Hypercholesterolemia: Yes Liver Disease: No Seizures: No Thyroid Disease: No - Surgical History Orthopedic Surgery: Yes (L. Ankle sx, L.leg) - Immunization History Immunization Up to Date: Yes - Suicide/Smoking/Psychosocial Hx Smoking Status: No Smoking History: Never smoked Have you smoked in the past 12 months: No Number of Cigarettes Smoked Daily: 0 Hx Alcohol Use: No Drug/Substance Use Hx: No Substance Use Type: None Hx Substance Use Treatment: No Review of Systems - Review of Systems Comments:: 11/11/17 05:29 Constitutional: No fevers, chills, fatigue, malaise HEENT: No Rhinorrhea, nasal congestion, visual changes Cardiovascular: No chest pain, syncope, palpitations, lightheadedness Respiratory: No Cough, SOB, Hemoptysis, Gastrointestinal: No Abdominal pain, Nausea, Vomiting, Constipation, Diarrhea, Melena Genitourinary: No Dysuria, Frequency, Urgency, Hesitancy, Hematuria, Flank pain Musculoskeletal: No Myalgia, arthralgia Skin: No rashes, itching, bruising, pallor Neurologic: Right arm weakness, slurred speech, facial asymmetry. No Headache, Dizziness, Numbness, or Tingling Psychiatric: No Hallucinations. No SI or HI *Physical Exam - Physical Exam Comments: 11/11/17 05:35 General Appearance: Nourished. Morbidly Obese No Apparent Distress HEENT: EOMI, DEBI. No Pharyngeal Erythema, Tonsillar Exudate, Tonsillar Erythema Neck: No Cervical Lymphadenopathy Respiratory/Chest: Lungs Clear, Normal Breath Sounds. No Crackles, Rales, Rhonchi, Wheezing Cardiovascular: Regular Rhythm, Regular Rate. No Murmur, Gallops, Rubs Gastrointestinal/Abdominal: Normal Bowel Sounds, Soft. No Guarding, Rebound, Tenderness Musculoskeletal: No CVA Tenderness Extremity: Normal Capillary Refill Integumentary: Normal Color, Dry, Warm Neurologic: Fully Oriented, Alert, Normal Mood/Affect, Normal Response, Motor Strength equal in the legs bilaterally with some effort against gravity. Mild weakness noted on the right arm when compared to the left. Left lower facial droop noted on exam. Mild slurred speech noted on exam. Heart Score/ECG Review #1 ECG reviewed & interpreted by me at: 05:38 (Afib. Incomplete left bundle branch block) General ECG Interpretation: Normal Rate, Normal Intervals, No acute ischemic changes ED Treatment Course - LABORATORY CBC & Chemistry Diagram: 11/12/17 05:45 11/13/17 06:05 - RADIOLOGY Radiology Studies Ordered: Category Date Time Status HEAD CT (STROKE) [CT] Stat CT Scan 11/11/17 04:54 Ordered Medical Decision Making - Critical Care Time Total Critical Care Time (minutes): 40 Critical Care Statement: The care of this patient involved high complexity decision making to prevent further life threatening deterioration of the patient 's condition and/or to evaluate & treat vital organ system(s) failure or risk of failure. - Medical Decision Making 11/11/17 05:39 The patient is a 72 year old female with a history of HTN, HLD, DM, CHF, arthritis, morbid Obesity, COPD, Afib, GERD, GOUT, anemia who presents for evaluation of a possible stroke. Differential includes but is not limited to: CVA, TIA, Infectious, Metabolic derangement. Given the patient's left facial droop and right arm weakness, the patient was called as a Code Snyder and an emergent CT was obtained which was unremarkable as preliminarily read by our infantry weapons crewmember radiologist. The patient is on coumadin for afib and is not a candidate for TPA at this time. We discussed the case with Dr. Alvarez with neurology who agrees that the patient is not a candidate for TPA and will come evaluate the patient. We will obtain a cbc, cmp, coags, cholesterol, ekg, to evaluate further. We will continue to closely monitor and reassess. The patient will likely require admission for further management. 11/11/17 07:12 CBC demonstrates an elevated wbc to 21 and UA demonstrates positive leuk esterase and elevated wbc consistent with a UTI. We discussed the case with Dr. Rebolledo who informed us that Dr. Alvarez is not covering for him. We discussed the case with the admitting team who accepted the patient for admission. *DC/Admit/Observation/Transfer Diagnosis at time of Disposition: TIA (transient ischemic attack), Weakness - Discharge Dispostion Condition at time of disposition: Stable Decision to Admit order: Yes - Referrals - Patient Instructions - Post Discharge Activity
--- NOTE | 2017-11-11 05:34 | PDOC ---
Attending Attestation - HPI HPI: 11/11/17 05:40 Patient is a 72 year old female with a significant past medical history of HTN, HLD, IDDM, CHF, arthritis, Morbid obesity, COPD, Afib, Gout, anemia, who presents to the ED with complaints of left sided facial droop that began earlier this morning. As per [facility] staff, patient was found to have left sided facial drooping this morning at 2:30 am. They also report patient experiencing associated symptoms of right arm weakness, and slurred speech. Patient reports being unable to walk at baseline as well as having a frozen left arm. She reports not having any experiences like this in the past. Denies chest pain, Sob. Denies nausea, vomiting. Denies fevers, chills. Denies nausea, and vomiting. Denies numbness, tingles. Denies any other symptoms. Allergies: None Social history: No smoking. No alcohol. Marijuana use. Surgical history: L ankle, C/S x2, tubal ligation PMD: Dr. Whitmore Adult PE General: +Morbid Obese. Well-nourished well-developed individual, no acute distress HEENT: Throat: Normal, tonsils normal, no erythema or exudate Neck: Supple, no meningeal signs, no lymphadenopathy Eyes::Pupils equal reactive and round, extraocular motion intact Chest: Nontender to palpation Cardiac: S1-S2 normal, regular rate and rhythm, no murmurs rubs or gallops Respiratory: Lungs clear to auscultation bilateral Abdomen: Soft, nondistended, normal bowel sounds, nontender to palpation diffusely Extremities: Warm, dry, no cyanosis, clubbing, or edema Skin: No rashes Neuro: +See NIH stroke scale Alert and oriented x3, nonfocal exam, grossly intact, normal gait Psych: Normal mood and affect <Edouard Berger - Last Filed: 11/11/17 05:40> - Resident Resident Name: Александр Cuevas - ED Attending Attestation I have performed the following: I have examined & evaluated the patient, The case was reviewed & discussed with the resident, I agree w/resident's findings & plan, Exceptions are as noted - Physicial Exam PE: 11/11/17 06:55 see HPI - Medical Decision Making 11/11/17 05:33 A portion of this note was documented by scribe services under my direction. I have reviewed the details of the note, within reason, and agree with the documentation. The case summary and management plan written by me. Assessment and plan: This is a 72-year-old morbidly obese female who is bedridden from the [facility]. Patient has about 2-1/2 hours of some slurred speech and facial droop and the weakness on her right side. Her NIH stroke scale is approximately 5. Patient is a code crooks. Patient is not a candidate for thrombolysis secondary to her multiple comorbidities and mild symptoms. However patient will be admitted to an inpatient bed. <Anatoly Beck I - Last Filed: 11/11/17 06:55>
[2017-11-11 05:39] LABS: BASO % 0.9 % (0-2.0); EOS % 0.5 % (0-4.5); HEMATOCRIT 29.4 % (32.4-45.2); HEMOGLOBIN 9.1 GM/dL (10.7-15.3); LYMPH % 6.6 % (8-40); MCH 26.9 pg (25.7-33.7); MCHC 30.8 g/dl (32.0-36.0); MEAN CELL VOLUME 87.4 fl (80-96); MEAN PLT VOLUME 8.7 fl (7.5-11.1); MONO % 2.9 % (3.8-10.2); NEUT % 89.1 % (42.8-82.8); PLATELET COUNT 195 K/MM3 (134-434); RBC 3.36 M/mm3 (3.60-5.2); RDW 17.6 % (11.6-15.6); WHITE BLOOD COUNT 17.2 K/mm3 (4.0-10.0)
[2017-11-11 05:55] LABS: INR 3.51 (0.83-1.09); PROTHROMBIN TIME (PATIENT) 39.7 SEC (9.7-13.0)
[2017-11-11 06:05] LABS: ALBUMIN 3.1 g/dl (3.4-5.0); ANION GAP 7 (8-16); CALCIUM 8.1 mg/dL (8.5-10.1); CHLORIDE 104 mmol/L (98-107); CO2 31 mmol/L (21-32); CREATININE 4.2 mg/dL (0.55-1.02); GLUCOSE,RANDOM 253 mg/dL (74-106); POTASSIUM 5.8 mmol/L (3.5-5.1); SGOT/AST 14 U/L (15-37); SGPT/ALT 18 U/L (12-78); SODIUM 142 mmol/L (136-145); TOT PROT 6.5 g/dl (6.4-8.2); TRIGLYCERIDES 86 mg/dL (35-160)
[2017-11-11 06:09] LABS: ALK PHOS 76 U/L (45-117); BILIRUBIN,TOTAL 0.3 mg/dL (0.2-1.0); CHOLESTEROL 168 mg/dL (50-200); HDL CHOLESTEROL 35 mg/dL (40-60)
[2017-11-11 06:18] LABS: BLOOD UREA NITROGEN 113 mg/dL (7-18)
--- NOTE | 2017-11-11 08:50 | CON.NEURO ---
Consult - History of Present Illness History of Present Illness: 72 year old female with a significant past medical history of HTN, HLD, IDDM, CHF, arthritis, Morbid obesity, COPD, Afib, Gout, anemia, who presents to the ED with complaints of left sided facial droop that began earlier this morning. As per [facility] staff, patient was found to have left sided facial drooping this morning at 2:30 am. They also report patient experiencing associated symptoms of right arm weakness, and slurred speech. Patient reports being unable to walk at baseline as well as having a frozen left arm. She reports not having any experiences like this in the past. Denies chest pain, Sob. Denies nausea, vomiting. Denies fevers, chills. Denies nausea, and vomiting. Denies numbness, tingles. Denies any other symptoms. currently she feels back to baseline --HX of left frozen shoudler; she denies confusion and is oriented. HD CT : no acute stroke, white matter changes, no bld called this AM for Code Perez : was deemed not a candidate bc of AFIB on AC. INR 3.51 - Past Medical History Cardio/Vascular: Yes: AFIB (anticoagulants for 5 yrs , on coumadin), CHF, HTN, Hyperlipdemia. No: CAD Pulmonary: Yes: Asthma, COPD Gastrointestinal: Yes: Constipation, GERD, Other (does not remember about colonscopy ) Renal/: Yes: Renal Inusuff, UTI (h/o recurrent uti) Psych: Yes: Depression (because son at age 38 yrs by sucide ) Musculoskeletal: Yes: Osteoarthritis Endocrine: Yes: Diabetes Mellitus (IDDM since age 40 yrs ), Other (morbid obesity ) Additional Medical History: morbid obesity - Past Surgical History Past Surgical History: Yes: (40 years ago per patient), Tubal Ligation - Alcohol/Substance Use Hx Alcohol Use: No History of Substance Use: reports: None - Smoking History Smoking history: Never smoked Have you smoked in the past 12 months: No Aproximately how many cigarettes per day: 0 - Social History Usual Living Arrangement: [facility] (for [facility] yrs at [facility]) ADL: Support Services History of Recent Travel: No Home Medications - Allergies Allergies/Adverse Reactions: Allergies Allergy/AdvReac Type Severity Reaction Status Date / Time No Known Allergies Allergy Verified 10/14/17 17:13 - Home Medications Home Medications: Ambulatory Orders Allopurinol [Zyloprim -] 100 mg PO DAILY 10/14/17 Ascorbic Acid [C-500] 500 mg PO DAILY 10/14/17 Atorvastatin Calcium 10 mg PO HS 10/14/17 Bisacodyl [Gentle Laxative] 5 mg PO HS 10/14/17 Budesonide/Formeterol Fumarate [SYMBICORT 160/4.5mcg -] 1 inh PO BID 10/14/17 Carvedilol 25 mg PO DAILY 10/14/17 Cholecalciferol (Vitamin D3) [Vitamin D3] 1,000 unit PO DAILY 10/14/17 Docusate Sodium [Colace] 100 mg PO HS 10/14/17 Folic Acid 1 mg PO DAILY 10/14/17 Gabapentin [Neurontin -] 100 mg PO Q8H 10/14/17 Insulin Detemir [Levemir Flextouch] 33 unit SQ HS 10/14/17 Ipratropium [place] 0.2 mg IH Q6H PRN 10/14/17 Iron Polysaccharide Complex [Ferrex 150] 150 mg PO DAILY 10/14/17 Isosorbide Mononitrate 60 mg PO DAILY 10/14/17 Lactulose 30 gm PO HS 10/14/17 Metoprolol Tartrate 50 mg PO TID 10/14/17 Multivitamin [Multiple Vitamins] 1 each PO DAILY 10/14/17 Nifedipine ER [Procardia XL -] 90 mg PO DAILY 10/14/17 Oxycodone HCl/Acetaminophen [Percocet 5-325 mg Tablet] 2 tab PO TID 10/14/17 Ranitidine HCl 150 mg PO DAILY 10/14/17 Whey/Arginine/C/E/Malic/Citric [Argitein Powder Packet] 1 each PO TID 10/14/17 Furosemide [Lasix -] 40 mg PO BID@0600,1400 #60 tablet 10/29/17 Metolazone [Zaroxolyn -] 5 mg PO DAILY PRN #14 tablet 10/29/17 Family Disease History - Family Disease History Family Disease History: Diabetes: Father ( age 44, complications DM), Mother ( age 83), Daughter (Alive, ESRD), Heart Disease: Mother, Other: Son (, age 38 suicide), Daughter Physical Exam-Neuro Vital Signs: Vital Signs Temperature 98.3 F 11/11/17 05:19 Pulse Rate 64 11/11/17 05:19 Respiratory Rate 18 11/11/17 05:19 Blood Pressure 119/87 11/11/17 06:24 O2 Sat by Pulse Oximetry (%) 95 11/11/17 05:19 Labs: CBC, BMP 11/11/17 05:29 11/11/17 05:29 INR, PTT INR 3.51 (0.83-1.09) H* 11/11/17 05:29 - Neuro Exam Level Of Consciousness: Yes: Alert, Oriented to Person (? left facial, EOMI, no dysarthria, tremulou, no focal RUE weakness, Left UE-limited by shoulder red ROM , diatlly LE 5/5, plantars dwon ) NIH Stroke Scale - Last Known Well Date/Time & Onset Date Last Known Well: 11/11/17 Time Last Known Well: 02:30 - Initial Evaluation Level of consciousness: Alert Ask patient the month and their age: Answers both correctly Ask patient to open & close eyes; make fist and let go: Obeys both correctly Best gaze (horizontal eye movement): Normal Visual field testing: No visual field loss Facial paresis (Show teeth/raise eyebrows/close eyes tight): Minor paralysis ( flattened nasolabial fold, asymmetry on smiling) Motor Function: Left Arm: Some effort against gravity Motor Function: Right Arm: Normal (extends arm 90 (or 45) degrees for 10 seconds without drift Motor Function: Left Leg: Normal (extends leg 30 degrees for 5 seconds without drift) Motor Function: Right Leg: Normal (extends leg 30 degrees for 5 seconds without drift) Limb Ataxia: No ataxia Sensory(Use pinprick test arms,legs,trunk,face/side to side): Normal Best language (Describe picture, name items, read sentences): No Aphasia Dysarthria (read several words): Normal articulation Extinction and Inattention: No abnormality - Total Score NIH Stroke Scale Score: 3 Imaging - Results Cat Scan: Report Reviewed, Image Reviewed Problem List - Problems (1) TIA (transient ischemic attack) Code(s): G45.9 - TRANSIENT CEREBRAL ISCHEMIC ATTACK, UNSPECIFIED (2) Weakness Code(s): R53.1 - WEAKNESS (3) Afib Code(s): I48.91 - UNSPECIFIED ATRIAL FIBRILLATION Qualifiers: Assessment/Plan 72 year old female with a significant past medical history of HTN, HLD, IDDM, CHF, arthritis, Morbid obesity, COPD, Afib, Gout, anemia, who presents to the ED with complaints of left sided facial droop that began earlier this morning. As per [facility] staff, patient was found to have left sided facial drooping this morning at 2:30 am. They also report patient experiencing associated symptoms of right arm weakness, and slurred speech. Patient reports being unable to walk at baseline as well as having a frozen left arm. She reports not having any experiences like this in the past. Denies chest pain, Sob. Denies nausea, vomiting. Denies fevers, chills. Denies nausea, and vomiting. Denies numbness, tingles. Denies any other symptoms. currently she feels back to baseline --HX of left frozen shoudler; she denies confusion and is oriented. HD CT : no acute stroke, white matter changes, no bld called this AM for Code Perez : was deemed not a candidate bc of AFIB on AC. INR 3.51 appears close to baseline now ? r/o TIA vs metabolic issue , with obvious stroke RF ; hyperkalemic and elevted WBC count --r/o infection as well will not fit MRI machine HX of AFib with TX AC - to continue check Doppler and ECHO check lipids, A1c , metabolic/infectious [place] DR PANIAGUA [id number]
[2017-11-11 09:22] LABS: URINE APPEARANCE CLOUDY; URINE BILIRUBIN NEGATIVE (<2.0 mg/dL); URINE COLOR LTYELLOW; URINE GLUCOSE (UA) 1+ (NEGATIVE); URINE KETONE NEGATIVE (NEGATIVE); URINE LEUK ESTERASE 1+ (NEGATIVE); URINE NITRITE POSITIVE (NEGATIVE); URINE PROTEIN 1+ (NEGATIVE); URINE UROBILINOGEN NEGATIVE mg/dL (0.2-1.0)
[2017-11-11 09:28] LABS: EPI CELLS RARE /HPF (FEW); GRANULAR CASTS 3 /lpf; URINE BACTERIA MODERATE /hpf (NONE SEEN); URINE MUCUS RARE
[2017-11-11] MEDS ORDERED: IPRATROPIUM BR 0.02% 0.5 MG/2.5 ML VIAL.NEB. NEB PRN (11:28)
[2017-11-11] MEDS ORDERED: METOLAZONE 5 MG TABLET PO PRN (11:28)
[2017-11-11] MEDS ORDERED: PIPERACILLIN/TAZOB 2.25 GM 2.25 GM in DEXTROSE 5%-WATER - 50 ML IVPB SCH ×2 (11:45→18:00)
--- NOTE | 2017-11-11 11:45 | HP ---
Admitting History and Physical - Primary Care Physician PCP: Alicja Lee - Admission History of Present Illness: patient seen and examined in the emergency room. chart reviewed emergency room records reviewed Per emergency room records---Patient is a 72 year old female with a significant past medical history of HTN, HLD, IDDM, CHF, arthritis, Morbid obesity, COPD, Afib, Gout, anemia, who presents to the ED with complaints of left sided facial droop that began earlier this morning. As per long-term staff, patient was found to have left sided facial drooping this morning at 2:30 am. They also report patient experiencing associated symptoms of right arm weakness, and slurred speech. Patient reports being unable to walk at baseline as well as having a frozen left arm. She reports not having any experiences like this in the past. Denies chest pain, Sob. Denies nausea, vomiting. Denies fevers, chills. Denies nausea, and vomiting. Denies numbness, tingles. Denies any other symptoms. patient reports symptoms resolved CAT scan Negative for acute pathology patient well known to me also from previous admissions Resident of [facility] Neurology consult noted and appreciated History Source: Medical Record - Past Medical History Cardiovascular: Yes: AFIB (anticoagulants for 5 yrs , on coumadin), CHF, HTN, Hyperlipdemia. No: CAD Pulmonary: Yes: Asthma, COPD Gastrointestinal: Yes: Constipation, GERD, Other (does not remember about colonscopy ) Renal/: Yes: Renal Inusuff, UTI (h/o recurrent uti) Heme/Onc: Yes: Anemia (history of chronic anemia, on intermittent transfusions and also on Procrit at [place]), Other. No: B12 Deficiency, Bleeding Disorder, Cancer, Current Chemotherapy, Current Radiation Therapy, Hemochromatosis, Hypercoaguable State, Myeloproliferative Synd, Sickle Cell Disease, Sickle Cell Trait, Thrombocytopenia Psych: Yes: Depression (because son at age 38 yrs by sucide ) Musculoskeletal: Yes: Osteoarthritis Endocrine: Yes: Diabetes Mellitus (IDDM since age 40 yrs ), Other (morbid obesity ) - Past Surgical History Past Surgical History: Yes: (40 years ago per patient), Tubal Ligation - Smoking History Smoking history: Never smoked Have you smoked in the past 12 months: No Aproximately how many cigarettes per day: 0 - Alcohol/Substance Use Hx Alcohol Use: No History of Substance Use: reports: None - Social History ADL: Support Services History of Recent Travel: No Home Medications - Allergies Allergies/Adverse Reactions: Allergies Allergy/AdvReac Type Severity Reaction Status Date / Time No Known Allergies Allergy Verified 10/14/17 17:13 - Home Medications Home Medications: Ambulatory Orders Allopurinol [Zyloprim -] 100 mg PO DAILY 10/14/17 Ascorbic Acid [C-500] 500 mg PO DAILY 10/14/17 Atorvastatin Calcium 10 mg PO HS 10/14/17 Bisacodyl [Gentle Laxative] 5 mg PO HS 10/14/17 Budesonide/Formeterol Fumarate [SYMBICORT 160/4.5mcg -] 1 inh PO BID 10/14/17 Carvedilol 25 mg PO DAILY 10/14/17 Cholecalciferol (Vitamin D3) [Vitamin D3] 1,000 unit PO DAILY 10/14/17 Docusate Sodium [Colace] 100 mg PO HS 10/14/17 Folic Acid 1 mg PO DAILY 10/14/17 Gabapentin [Neurontin -] 100 mg PO Q8H 10/14/17 Insulin Detemir [Levemir Flextouch] 33 unit SQ HS 10/14/17 Ipratropium [place] 0.2 mg IH Q6H PRN 10/14/17 Iron Polysaccharide Complex [Ferrex 150] 150 mg PO DAILY 10/14/17 Isosorbide Mononitrate 60 mg PO DAILY 10/14/17 Lactulose 30 gm PO HS 10/14/17 Metoprolol Tartrate 50 mg PO TID 10/14/17 Multivitamin [Multiple Vitamins] 1 each PO DAILY 10/14/17 Nifedipine ER [Procardia XL -] 90 mg PO DAILY 10/14/17 Oxycodone HCl/Acetaminophen [Percocet 5-325 mg Tablet] 2 tab PO TID 10/14/17 Ranitidine HCl 150 mg PO DAILY 10/14/17 Whey/Arginine/C/E/Malic/Citric [Argitein Powder Packet] 1 each PO TID 10/14/17 Furosemide [Lasix -] 40 mg PO BID@0600,1400 #60 tablet 10/29/17 Metolazone [Zaroxolyn -] 5 mg PO DAILY PRN #14 tablet 10/29/17 Family Disease History - Family Disease History Family Disease History: Diabetes: Father ( age 44, complications DM), Mother ( age 83), Daughter (Alive, ESRD), Heart Disease: Mother, Other: Son (, age 38 suicide), Daughter Review of Systems Findings/Remarks: see HPI Physical Examination Vital Signs: Vital Signs Temperature 98.3 F 11/11/17 09:01 Pulse Rate 60 11/11/17 07:10 Respiratory Rate 18 11/11/17 07:10 Blood Pressure 116/58 11/11/17 07:10 O2 Sat by Pulse Oximetry (%) 99 11/11/17 07:10 Constitutional: Yes: No Distress, Obese, Other (morbidly obese) Eyes: Yes: Conjunctiva Clear HENT: Yes: WNL Neck: Yes: Supple Cardiovascular: Yes: Pulse Irregular. No: Regular Rate and Rhythm Respiratory: Yes: Diminished Gastrointestinal: Yes: Soft, Abdomen, Obese Edema: LLE: 2+, RLE: 2+ Neurological: Yes: Alert, Other (nonfocal) Labs: CBC, BMP 11/11/17 05:29 11/11/17 05:29 Imaging - Results Chest X-ray: Report Reviewed Problem List - Problems (1) Toxic metabolic encephalopathy Code(s): G92 - TOXIC ENCEPHALOPATHY (2) Pneumonia Code(s): J18.9 - PNEUMONIA, UNSPECIFIED ORGANISM (3) TIA (transient ischemic attack) Code(s): G45.9 - TRANSIENT CEREBRAL ISCHEMIC ATTACK, UNSPECIFIED (4) Afib Code(s): I48.91 - UNSPECIFIED ATRIAL FIBRILLATION Qualifiers: Atrial fibrillation type: persistent Qualified Code(s): I48.1 - Persistent atrial fibrillation (5) Anemia Code(s): D64.9 - ANEMIA, UNSPECIFIED Qualifiers: Anemia type: unspecified type Qualified Code(s): D64.9 - Anemia, unspecified (6) Anticoagulated on Coumadin Code(s): Z51.81 - ENCOUNTER FOR THERAPEUTIC DRUG LEVEL MONITORING; Z79.01 - ORTHO TECH (CURRENT) USE OF 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 (7) CKD (chronic kidney disease) Code(s): N18.9 - CHRONIC KIDNEY DISEASE, UNSPECIFIED Qualifiers: Chronic kidney disease stage: unspecified stage Qualified Code(s): N18.9 - Chronic kidney disease, unspecified (8) COPD (chronic obstructive pulmonary disease) Code(s): J44.9 - CHRONIC OBSTRUCTIVE PULMONARY DISEASE, UNSPECIFIED (9) Diabetes 1.5, managed as type 1 Code(s): E13.9 - OTHER SPECIFIED DIABETES MELLITUS WITHOUT COMPLICATIONS (10) Functional quadriplegia Code(s): R53.2 - FUNCTIONAL QUADRIPLEGIA Assessment/Plan doubt TIA Likely toxic metabolic encephalopathy Patient clinically better Chest x-ray--- possible pneumonia She is [facility] will treat with broad-spectrum antibiotics Will get cardiology as well as ID on board also Monitor INR--- Medications reviewed monitor blood sugar Overall condition guarded--- due to multiple comorbidities--- but stable Will follow.
[2017-11-11] MEDS ORDERED: PIPERACILLIN/TAZOBACTAM 2.25 GM VIAL IVPB ONE ×2 (11:49→16:25)
--- NOTE | 2017-11-11 12:55 | CON.CARD ---
Consult Consult Specialty:: Cardiology Referred by:: Alicja Lee MD Reason for Consultation:: Afib - History of Present Illness Chief Complaint: ? TIA History of Present Illness: 72 year old female [facility] with a significant past medical history of HTN, HLD, IDDM , diastolic CHF, chronic venous insufficiency, arthritis, Morbid obesity, COPD, Afib on coumadin per INR, Gout, anemia, who presents to the ED with complaints of left sided facial droop, right arm weakness, altered mental status and slurred speech all since resolved. Patient reports being unable to walk at baseline as well as having a frozen left arm. She denies chest pain, dyspnea , near or true syncope, palpitations, orthopnea, PND or worsening of chronic LE edema. HD CT : no acute stroke, white matter changes, no bld - Past Medical History Cardio/Vascular: Yes: AFIB (anticoagulants for 5 yrs , on coumadin), CHF, HTN, Hyperlipdemia. No: CAD Pulmonary: Yes: Asthma, COPD Gastrointestinal: Yes: Constipation, GERD, Other (does not remember about colonscopy ) Renal/: Yes: Renal Inusuff, UTI (h/o recurrent uti) Psych: Yes: Depression (because son at age 38 yrs by sucide ) Musculoskeletal: Yes: Osteoarthritis Endocrine: Yes: Diabetes Mellitus (IDDM since age 40 yrs ), Other (morbid obesity ) Additional Medical History: morbid obesity - Past Surgical History Past Surgical History: Yes: (40 years ago per patient), Tubal Ligation - Alcohol/Substance Use Hx Alcohol Use: No History of Substance Use: reports: None - Smoking History Smoking history: Never smoked Have you smoked in the past 12 months: No Aproximately how many cigarettes per day: 0 - Social History Usual Living Arrangement: Long-Term (for 2 yrs at [facility]) ADL: Support Services History of Recent Travel: No Home Medications - Allergies Allergies/Adverse Reactions: Allergies Allergy/AdvReac Type Severity Reaction Status Date / Time No Known Allergies Allergy Verified 10/14/17 17:13 - Home Medications Home Medications: Ambulatory Orders Allopurinol [Zyloprim -] 100 mg PO DAILY 10/14/17 Ascorbic Acid [C-500] 500 mg PO DAILY 10/14/17 Atorvastatin Calcium 10 mg PO HS 10/14/17 Bisacodyl [Gentle Laxative] 5 mg PO HS 10/14/17 Budesonide/Formeterol Fumarate [SYMBICORT 160/4.5mcg -] 1 inh PO BID 10/14/17 Carvedilol 25 mg PO DAILY 10/14/17 Cholecalciferol (Vitamin D3) [Vitamin D3] 1,000 unit PO DAILY 10/14/17 Docusate Sodium [Colace] 100 mg PO HS 10/14/17 Folic Acid 1 mg PO DAILY 10/14/17 Gabapentin [Neurontin -] 100 mg PO Q8H 10/14/17 Insulin Detemir [Levemir Flextouch] 33 unit SQ HS 10/14/17 Ipratropium [place] 0.2 mg IH Q6H PRN 10/14/17 Iron Polysaccharide Complex [Ferrex 150] 150 mg PO DAILY 10/14/17 Isosorbide Mononitrate 60 mg PO DAILY 10/14/17 Lactulose 30 gm PO HS 10/14/17 Metoprolol Tartrate 50 mg PO TID 10/14/17 Multivitamin [Multiple Vitamins] 1 each PO DAILY 10/14/17 Nifedipine ER [Procardia XL -] 90 mg PO DAILY 10/14/17 Oxycodone HCl/Acetaminophen [Percocet 5-325 mg Tablet] 2 tab PO TID 10/14/17 Ranitidine HCl 150 mg PO DAILY 10/14/17 Whey/Arginine/C/E/Malic/Citric [Argitein Powder Packet] 1 each PO TID 10/14/17 Furosemide [Lasix -] 40 mg PO BID@0600,1400 #60 tablet 10/29/17 Metolazone [Zaroxolyn -] 5 mg PO DAILY PRN #14 tablet 10/29/17 Family Disease History - Family Disease History Family Disease History: Diabetes: Father ( age 44, complications DM), Mother ( age 83), Daughter (Alive, ESRD), Heart Disease: Mother, Other: Son (, age 38 suicide), Daughter Review of Systems - Review of Systems Neurological: reports: Change in Speech, Confusion Vital Signs: Vital Signs Temperature 98.3 F 11/11/17 09:01 Pulse Rate 60 11/11/17 07:10 Respiratory Rate 18 11/11/17 07:10 Blood Pressure 116/58 11/11/17 07:10 O2 Sat by Pulse Oximetry (%) 99 11/11/17 07:10 Constitutional: Yes: No Distress, Calm Neck: Yes: Supple Respiratory: Yes: Regular, Diminished, On Nasal O2 Gastrointestinal: Yes: Normal Bowel Sounds, Soft, Abdomen, Obese Cardiovascular: Yes: Pulse Irregular JVD: No Carotid Bruit: No Heart Sounds: Yes: S1, S2 Murmur: Yes: Systolic Murmur, Grade 1 Edema: Yes Edema: LLE: 1+, RLE: 1+ - Other Data Labs, Other Data: CBC, BMP 11/11/17 05:29 11/11/17 05:29 INR, PTT INR 3.51 (0.83-1.09) H* 11/11/17 05:29 Troponin, BNP 11/11/17 05:29 Troponin I < 0.02 Troponin, BNP 11/11/17 05:29 Troponin I < 0.02 Afib @ 65 Imaging - Results Chest X-ray: Report Reviewed (Left patchy infiltrate) Cat Scan: Report Reviewed (HCT Negative for bleed) Problem List - Problems (1) Acute on chronic renal insufficiency Code(s): N28.9 - DISORDER OF KIDNEY AND URETER, UNSPECIFIED; N18.9 - CHRONIC KIDNEY DISEASE, UNSPECIFIED (2) Afib Code(s): I48.91 - UNSPECIFIED ATRIAL FIBRILLATION Qualifiers: Atrial fibrillation type: persistent (3) Anemia Code(s): D64.9 - ANEMIA, UNSPECIFIED Qualifiers: Anemia type: unspecified type Qualified Code(s): D64.9 - Anemia, unspecified (4) Anticoagulated on Coumadin Code(s): Z51.81 - ENCOUNTER FOR THERAPEUTIC DRUG LEVEL MONITORING; Z79.01 - PROVIDER RELATIONS COORDINATOR (CURRENT) USE OF 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 (5) CHF (congestive heart failure) Code(s): I50.9 - HEART FAILURE, UNSPECIFIED (6) Functional quadriplegia Code(s): R53.2 - FUNCTIONAL QUADRIPLEGIA (7) Hyperkalemia Code(s): E87.5 - HYPERKALEMIA (8) Morbid obesity Code(s): E66.01 - MORBID (SEVERE) OBESITY DUE TO EXCESS CALORIES (9) Sleep apnea in adult Code(s): G47.33 - OBSTRUCTIVE SLEEP APNEA (ADULT) (PEDIATRIC) (10) Supratherapeutic INR Code(s): R79.1 - ABNORMAL COAGULATION PROFILE Assessment/Plan echo 09/2015 tds echo 01/2013: tds, nl lvef, valves not seen well cath 11/2007: normal cors 1. Altered mental status, doubt TIA with supratherapeutic INR 3.51, suspect toxic-metabolic encephelopathy now improving, r/o occult infection, hypercapnea 2. Persistent afib on coumadin with supratherapeutic INR 3. Chronic diastolic failure 4. HTN 5. Hyperlipidemia 6. Acute on CKD with hyperkalemia 7. Morbid obesity, with OSAS/OHS suspected P:1. Continue coumadin per INR 2. F/u check Doppler and ECHO, check lipids, A1c , metabolic/infectious [place] 3. Continue Lipitor 10 qhs, carvedilol 25 bid. Lopressor 50 tid, Procardia XL 90 qd, decrease diuretics with monitor renal recovery and electrolytes 4. GI protection, thank you for consultative opportunity
--- NOTE | 2017-11-11 13:12 | ECHO ---
Name: MARIA ANTONIA PANTOJA GEGE Exam:Adult Echocardiogram Study Date: 11/11/2017 12:08 PM Age: 72 yrs Reason For Study: ATRIAL FIBRILLATION Height: 62 in Weight: 264 lb BSA: 2.2 m2 MMode/2D Measurements & Calculations IVSd: 0.91 cm LA dimension: 3.7 cm LVIDd: 5.1 cm LVIDs: 3.7 cm LVPWd: 0.91 cm EDV(Teich): 126.5 ml ESV(Teich): 59.9 ml Doppler Measurements & Calculations MV E max joao: 126.9 cm/sec MR max joao: 282.3 cm/sec MV A max joao: 111.1 cm/sec MR max P.9 mmHg MV E/A: 1.1 MV dec time: 0.23 sec Procedure There was technical limitations during this study due to patients body habitas. Left Ventricle The left ventricle is not well visualized. The left ventricle is grossly normal size. Left ventricula r systolic function is grossly normal. Regional wall motion abnormalities cannot be excluded due to pruitt ited visualization. Right Ventricle The right ventricle is not well visualized. The right ventricle is grossly normal size. The right fazal tricular systolic function is grossly normal. Best seen in subcostal views. Atria The left atrial size is normal. Right atrium not well visualized. Mitral Valve There is moderate mitral valve thickening. The mitral valve is not well visualized. There is trace to mild mitral regurgitation. Tricuspid Valve The tricuspid valve is not well visualized. Aortic Valve The aortic valve is not well visualized. Pulmonic Valve The pulmonic valve is not well visualized. Pericardium/Pleura There is no pericardial effusion. Interpretation Summary There is no comparison study available. Brice Bales MD 11/11/2017 01:11 PM
--- NOTE | 2017-11-11 13:57 | CON.ID ---
Consult Consult Specialty:: infectious diseases Referred by:: Reason for Consultation:: leukocytosis,change in mental status - History of Present Illness Chief Complaint: altered mental status History of Present Illness: 72 year old female with pmhx of CKD, HTN, HLD, DM, CHF, and morbid obesity was send tot he emergency room with sudden change in mental status. patient mentions that she had sudden change in her status mental ,she thought she was dreaming She now says she is not confused anymore and knows perfectly well where she is work up here shows patient has leukocytosis She denies fever, chills, nausea or vomiting. 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 No: CAD Pulmonary: Yes: Asthma, COPD Gastrointestinal: Yes: Constipation, GERD, Other (does not remember about colonscopy ) Renal/: Yes: Renal Inusuff, UTI (h/o recurrent uti) Psych: Yes: Depression (because son at age 38 yrs by sucide ) Musculoskeletal: Yes: Osteoarthritis Endocrine: Yes: Diabetes Mellitus (IDDM since age 40 yrs ), Other (morbid obesity ) Additional Medical History: morbid obesity - Past Surgical History Past Surgical History: Yes: (40 years ago per patient), Tubal Ligation - Alcohol/Substance Use Hx Alcohol Use: No History of Substance Use: reports: None - Smoking History Smoking history: Never smoked Have you smoked in the past 12 months: No Aproximately how many cigarettes per day: 0 - Social History Usual Living Arrangement: [facility] (for 2 yrs at [facility]) ADL: Support Services History of Recent Travel: No Home Medications - Allergies Allergies/Adverse Reactions: Allergies Allergy/AdvReac Type Severity Reaction Status Date / Time No Known Allergies Allergy Verified 10/14/17 17:13 - Home Medications Home Medications: Ambulatory Orders Allopurinol [Zyloprim -] 100 mg PO DAILY 10/14/17 Ascorbic Acid [C-500] 500 mg PO DAILY 10/14/17 Atorvastatin Calcium 10 mg PO HS 10/14/17 Bisacodyl [Gentle Laxative] 5 mg PO HS 10/14/17 Budesonide/Formeterol Fumarate [SYMBICORT 160/4.5mcg -] 1 inh PO BID 10/14/17 Carvedilol 25 mg PO DAILY 10/14/17 Cholecalciferol (Vitamin D3) [Vitamin D3] 1,000 unit PO DAILY 10/14/17 Docusate Sodium [Colace] 100 mg PO HS 10/14/17 Folic Acid 1 mg PO DAILY 10/14/17 Gabapentin [Neurontin -] 100 mg PO Q8H 10/14/17 Insulin Detemir [Levemir Flextouch] 33 unit SQ HS 10/14/17 Ipratropium [place] 0.2 mg IH Q6H PRN 10/14/17 Iron Polysaccharide Complex [Ferrex 150] 150 mg PO DAILY 10/14/17 Isosorbide Mononitrate 60 mg PO DAILY 10/14/17 Lactulose 30 gm PO HS 10/14/17 Metoprolol Tartrate 50 mg PO TID 10/14/17 Multivitamin [Multiple Vitamins] 1 each PO DAILY 10/14/17 Nifedipine ER [Procardia XL -] 90 mg PO DAILY 10/14/17 Oxycodone HCl/Acetaminophen [Percocet 5-325 mg Tablet] 2 tab PO TID 10/14/17 Ranitidine HCl 150 mg PO DAILY 10/14/17 Whey/Arginine/C/E/Malic/Citric [Argitein Powder Packet] 1 each PO TID 10/14/17 Furosemide [Lasix -] 40 mg PO BID@0600,1400 #60 tablet 10/29/17 Metolazone [Zaroxolyn -] 5 mg PO DAILY PRN #14 tablet 10/29/17 Family Disease History - Family Disease History Family Disease History: Diabetes: Father ( age 44, complications DM), Mother ( age 83), Daughter (Alive, ESRD), Heart Disease: Mother, Other: Son (, age 38 suicide), Daughter Review of Systems - Review of Systems Constitutional: reports: No Symptoms Eyes: reports: No Symptoms HENT: reports: No Symptoms Neck: reports: No Symptoms Cardiovascular: reports: No Symptoms Respiratory: reports: No Symptoms Gastrointestinal: reports: No Symptoms Genitourinary: reports: No Symptoms Musculoskeletal: reports: No Symptoms Integumentary: reports: No Symptoms Neurological: reports: Change in LOC Endocrine: reports: No Symptoms Hematology/Lymphatic: reports: No Symptoms Psychiatric: reports: No Symptoms Physical Exam Vital Signs: Vital Signs Temperature 98.3 F 11/11/17 09:01 Pulse Rate 60 11/11/17 07:10 Respiratory Rate 18 11/11/17 07:10 Blood Pressure 116/58 11/11/17 07:10 O2 Sat by Pulse Oximetry (%) 99 11/11/17 07:10 Constitutional: Yes: No Distress, Calm, Obese Eyes: Yes: Conjunctiva Clear HENT: Yes: Atraumatic, Normocephalic Neck: Yes: Supple, Trachea Midline Cardiovascular: Yes: Pulse Irregular Respiratory: Yes: Regular, On Nasal O2, Poor Air Entry Gastrointestinal: Yes: Normal Bowel Sounds, Soft Neurological: Yes: Alert, Oriented Psychiatric: Yes: Alert, Oriented Labs: CBC, BMP 11/11/17 05:29 Imaging - Results Chest X-ray: Report Reviewed, Image Reviewed Assessment/Plan Problem List - Problems (1) TIA (transient ischemic attack) Code(s): G45.9 - TRANSIENT CEREBRAL ISCHEMIC ATTACK, UNSPECIFIED (2) Weakness Code(s): R53.1 - WEAKNESS (3) Abdominal pain Code(s): R10.9 - UNSPECIFIED ABDOMINAL PAIN Qualifiers: Abdominal location: lower abdomen (4) Afib Code(s): I48.91 - UNSPECIFIED ATRIAL FIBRILLATION Qualifiers: Atrial fibrillation type: persistent Qualified Code(s): I48.1 - Persistent atrial fibrillation (5) Anemia Code(s): D64.9 - ANEMIA, UNSPECIFIED Qualifiers: Anemia type: unspecified type Qualified Code(s): D64.9 - Anemia, unspecified (6) CHF (congestive heart failure) Code(s): I50.9 - HEART FAILURE, UNSPECIFIED (7) CKD (chronic kidney disease) Code(s): N18.9 - CHRONIC KIDNEY DISEASE, UNSPECIFIED Qualifiers: Chronic kidney disease stage: unspecified stage Qualified Code(s): N18.9 - Chronic kidney disease, unspecified (8) Diabetes mellitus Code(s): E11.9 - TYPE 2 DIABETES MELLITUS WITHOUT COMPLICATIONS Qualifiers: Chronic kidney disease stage: unspecified stage (9) Obesity Code(s): E66.9 - OBESITY, UNSPECIFIED 10 uti r/o chances are that she could have uti plan will monitor wbc await for urine cx rest ct as per the team and neuro ct iv abx
[2017-11-11 14:06] LABS: ANION GAP 5 (8-16); CHLORIDE 103 mmol/L (98-107); CO2 31 mmol/L (21-32); GLUCOSE,RANDOM 202 mg/dL (74-106); POTASSIUM 5.4 mmol/L (3.5-5.1); SODIUM 139 mmol/L (136-145)
[2017-11-11 14:25] LABS: BLOOD UREA NITROGEN 110 mg/dL (7-18)
[2017-11-11] MEDS: FUROSEMIDE 40 MG TABLET (FP) PO SCH (15:45)
[2017-11-11] MEDS: GABAPENTIN 100 MG CAPSULE (FP) PO SCH ×2 (15:45→22:32)
[2017-11-11] MEDS: METOPROLOL TARTRATE 50 MG TABLET (FP) PO SCH ×2 (15:46→21:31)
--- NOTE | 2017-11-11 16:20 | CONSULT ---
Consult Consult Specialty:: Nephrology Reason for Consultation:: CKD - History of Present Illness Chief Complaint: sent in for change in mental status History of Present Illness: Pt is a 72 year old female with pmhx of CKD, HTN, HLD, DM, CHF, and morbid obesity who presents to the ER with change of mental status. She was found to have altered speech and facial asymmetry. She says that she feels better today than she felt last night. She was recently discharged from the hospital. She has history of CKD. I was called to evaluate her for elevated creatinine. She denies fever, chills, nausea or vomiting. - History Source History Provided By: Patient, Medical Record - Past Medical History Cardio/Vascular: Yes: AFIB (anticoagulants for 5 yrs , on coumadin), CHF, HTN, Hyperlipdemia. No: CAD Pulmonary: Yes: Asthma, COPD Gastrointestinal: Yes: Constipation, GERD, Other (does not remember about colonscopy ) Renal/: Yes: Renal Inusuff, UTI (h/o recurrent uti) Psych: Yes: Depression (because son at age 38 yrs by sucide ) Musculoskeletal: Yes: Osteoarthritis Endocrine: Yes: Diabetes Mellitus (IDDM since age 40 yrs ), Other (morbid obesity ) Additional Medical History: morbid obesity - Past Surgical History Past Surgical History: Yes: (40 years ago per patient), Tubal Ligation - Alcohol/Substance Use Hx Alcohol Use: No History of Substance Use: reports: None - Smoking History Smoking history: Never smoked Have you smoked in the past 12 months: No Aproximately how many cigarettes per day: 0 - Social History Usual Living Arrangement: [facility] (for [facility] yrs at [facility]) ADL: Support Services History of Recent Travel: No Home Medications - Allergies Allergies/Adverse Reactions: Allergies Allergy/AdvReac Type Severity Reaction Status Date / Time No Known Allergies Allergy Verified 10/14/17 17:13 - Home Medications Home Medications: Ambulatory Orders Allopurinol [Zyloprim -] 100 mg PO DAILY 10/14/17 Ascorbic Acid [C-500] 500 mg PO DAILY 10/14/17 Atorvastatin Calcium 10 mg PO HS 10/14/17 Bisacodyl [Gentle Laxative] 5 mg PO HS 10/14/17 Budesonide/Formeterol Fumarate [SYMBICORT 160/4.5mcg -] 1 inh PO BID 10/14/17 Carvedilol 25 mg PO DAILY 10/14/17 Cholecalciferol (Vitamin D3) [Vitamin D3] 1,000 unit PO DAILY 10/14/17 Docusate Sodium [Colace] 100 mg PO HS 10/14/17 Folic Acid 1 mg PO DAILY 10/14/17 Gabapentin [Neurontin -] 100 mg PO Q8H 10/14/17 Insulin Detemir [Levemir Flextouch] 33 unit SQ HS 10/14/17 Ipratropium [place] 0.2 mg IH Q6H PRN 10/14/17 Iron Polysaccharide Complex [Ferrex 150] 150 mg PO DAILY 10/14/17 Isosorbide Mononitrate 60 mg PO DAILY 10/14/17 Lactulose 30 gm PO HS 10/14/17 Metoprolol Tartrate 50 mg PO TID 10/14/17 Multivitamin [Multiple Vitamins] 1 each PO DAILY 10/14/17 Nifedipine ER [Procardia XL -] 90 mg PO DAILY 10/14/17 Oxycodone HCl/Acetaminophen [Percocet 5-325 mg Tablet] 2 tab PO TID 10/14/17 Ranitidine HCl 150 mg PO DAILY 10/14/17 Whey/Arginine/C/E/Malic/Citric [Argitein Powder Packet] 1 each PO TID 10/14/17 Furosemide [Lasix -] 40 mg PO BID@0600,1400 #60 tablet 10/29/17 Metolazone [Zaroxolyn -] 5 mg PO DAILY PRN #14 tablet 10/29/17 Family Disease History - Family Disease History Family Disease History: Diabetes: Father ( age 44, complications DM), Mother ( age 83), Daughter (Alive, ESRD), Heart Disease: Mother, Other: Son (, age 38 suicide), Daughter Review of Systems - Review of Systems Constitutional: reports: Malaise Eyes: reports: No Symptoms HENT: reports: No Symptoms Neck: reports: No Symptoms Cardiovascular: reports: No Symptoms Respiratory: reports: No Symptoms Gastrointestinal: reports: No Symptoms Genitourinary: reports: No Symptoms Musculoskeletal: reports: Muscle Weakness Neurological: reports: Change in LOC, Change in Speech, Numbness Endocrine: reports: No Symptoms Hematology/Lymphatic: reports: No Symptoms Physical Exam Vital Signs: Vital Signs Temperature 98 F 11/11/17 14:41 Pulse Rate 61 08/03/18 14:41 Respiratory Rate 18 11/11/17 14:41 Blood Pressure 119/59 11/11/17 14:41 O2 Sat by Pulse Oximetry (%) 99 11/11/17 14:41 Constitutional: Yes: Calm Eyes: Yes: Conjunctiva Clear HENT: Yes: Atraumatic Neck: Yes: Supple Cardiovascular: Yes: S1, S2 Respiratory: Yes: CTA Bilaterally Gastrointestinal: Yes: Soft, Abdomen, Obese Renal/: Yes: Incontinence Musculoskeletal: Yes: Muscle Weakness Edema: No Neurological: Yes: Oriented Psychiatric: Yes: Oriented Labs: CBC, BMP 11/11/17 05:29 11/11/17 13:27 Laboratory Tests 10/27/17 10/27/17 10/28/17 19:10 21:40 06:20 WBC Hgb 9.6 L 9.5 L Sodium Potassium Chloride Anion Gap BUN Creatinine Urine Protein 1+ H Urine Blood 1+ H 10/28/17 11/11/17 11/11/17 06:20 05:29 05:29 WBC 17.2 H Hgb 9.1 L Sodium 145 Potassium 5.1 5.8 H Chloride Anion Gap 7 L BUN 84 H 113 H* D Creatinine 3.4 H 4.2 H Urine Protein Urine Blood 11/11/17 11/11/17 08:44 13:27 WBC Hgb Sodium 139 Potassium 5.4 H Chloride 103 Anion Gap 5 L BUN 110 H* Creatinine 4.0 H Urine Protein 1+ H Urine Blood 1+ H Imaging - Results Chest X-ray: Report Reviewed Cat Scan: Report Reviewed Problem List - Problems (1) TIA (transient ischemic attack) Code(s): G45.9 - TRANSIENT CEREBRAL ISCHEMIC ATTACK, UNSPECIFIED (2) Weakness Code(s): R53.1 - WEAKNESS (3) Abdominal pain Code(s): R10.9 - UNSPECIFIED ABDOMINAL PAIN Qualifiers: Abdominal location: lower abdomen (4) Afib Code(s): I48.91 - UNSPECIFIED ATRIAL FIBRILLATION Qualifiers: Atrial fibrillation type: persistent Qualified Code(s): I48.1 - Persistent atrial fibrillation (5) Anemia Code(s): D64.9 - ANEMIA, UNSPECIFIED Qualifiers: Anemia type: unspecified type Qualified Code(s): D64.9 - Anemia, unspecified (6) CHF (congestive heart failure) Code(s): I50.9 - HEART FAILURE, UNSPECIFIED (7) CKD (chronic kidney disease) Code(s): N18.9 - CHRONIC KIDNEY DISEASE, UNSPECIFIED Qualifiers: Chronic kidney disease stage: unspecified stage Qualified Code(s): N18.9 - Chronic kidney disease, unspecified (8) Diabetes mellitus Code(s): E11.9 - TYPE 2 DIABETES MELLITUS WITHOUT COMPLICATIONS Qualifiers: Chronic kidney disease stage: unspecified stage (9) Obesity Code(s): E66.9 - OBESITY, UNSPECIFIED Assessment/Plan Current Medications Generic Name Dose Route Start Last Admin Trade Name Freq PRN Reason Stop Dose Admin Acetaminophen 650 mg 11/11/17 11:35 Tylenol - PO Q6H PRN PAIN LEVEL 1-5 Allopurinol 100 mg 11/12/17 10:00 Zyloprim - PO DAILY [facility] Atorvastatin Calcium 10 mg 11/11/17 22:00 Lipitor - PO HS [facility] Bisacodyl 5 mg 11/11/17 22:00 Dulcolax - PO HS [facility] Budesonide/Formoterol Fumarate 1 puff 11/11/17 22:00 Symbicort 160/4.5mcg - IH BID [facility] Carvedilol 25 mg 11/12/17 10:00 Coreg - PO DAILY [facility] Cholecalciferol 1,000 unit 11/12/17 10:00 Vitamin D3 - PO DAILY [facility] Docusate Sodium 100 mg 11/11/17 22:00 Colace - PO HS [facility] Folic Acid 1 mg 11/12/17 10:00 Folic Acid - PO DAILY [facility] Furosemide 40 mg 11/11/17 14:00 11/11/17 15:45 Lasix - PO 40 mg BID@0600,1400 [facility] Administration Gabapentin 100 mg 11/11/17 14:00 11/11/17 15:45 Neurontin - PO 100 mg TID [facility] Administration Sodium Chloride 1,000 mls @ 42 mls/hr 11/11/17 05:00 11/11/17 05:40 Normal Saline - IV 42 mls/hr ASDIR [facility] Administration Piperacillin Sod/Tazobactam 50 mls @ 100 mls/hr 11/11/17 18:00 Sod 2.25 gm/ Dextrose IVPB Q8H-IV [facility] Protocol Insulin Aspart 1 vial 11/11/17 16:30 Novolog Vial Sliding Scale - SQ ACHS [facility] Protocol Insulin Detemir 33 units 11/11/17 22:00 Levemir Vial SQ HS [facility] Ipratropium [place] 1 amp 11/11/17 11:28 Atrovent 0.02% Nebulizer - NEB Q6H PRN SHORT OF BREATH/WHEEZING Isosorbide Mononitrate 60 mg 11/12/17 10:00 Imdur - PO DAILY [facility] Lactulose 30 gm 11/11/17 22:00 Cephulac (Oral Use) PO HS [facility] Metolazone 5 mg 11/11/17 11:28 Zaroxolyn - PO DAILY PRN volume overload Metoprolol Tartrate 50 mg 11/11/17 14:00 11/11/17 15:46 Lopressor - PO 50 mg TID [facility] Administration Multivitamins/Minerals/Vitamin C 1 tab 11/12/17 10:00 Tab-A-Vit - PO DAILY [facility] Nifedipine 90 mg 11/12/17 10:00 Procardia Xl - PO DAILY [facility] Oxycodone/Acetaminophen combo 11/11/17 11:28 Percocet 5/325 - PO TID PRN PAIN LEVEL 6-10 Polysaccharide Iron Complex 150 mg 11/12/17 10:00 Niferex-150 - PO DAILY [facility] Ranitidine HCl 150 mg 11/12/17 10:00 Zantac - PO DAILY [facility] Impression 1. CKD 2. obesity 3. hyperlipidemia 4. HTN 5. DM 6. CHF 7. CAD 8. anemia 9. a-fib 10. iron deficiency 11. r/o TIA 12. hyperkalemia Plan - renal function is improving - potassium is improving - change fluids to 1/2ns - follow cultures - neuro follow up Dr Capps
[2017-11-11] MEDS ORDERED: DEXTROSE 5%-WATER - 50 ML IVPB ONE (16:25)
[2017-11-11] MEDS ORDERED: SODIUM CHLORIDE 0.45% 1,000 ML IV SCH (16:30)
[2017-11-11] MEDS ORDERED: ACETAMINOPHEN 325 MG TABLET (FP) PO PRN (16:43)
[2017-11-11] MEDS: PIPERACILLIN/TAZOB 2.25 GM 2.25 GM in DEXTROSE 5%-WATER - 50 ML IVPB SCH (17:20)
[2017-11-11] MEDS: INSULIN SLIDING SCALE (NOVOLOG) 1 VIAL SQ SCH ×2 (17:23→22:46)
[2017-11-11] MEDS: DOCUSATE SODIUM 100 MG CAPSULE (FP) PO SCH (21:28)
[2017-11-11] MEDS: BISACODYL 5 MG TABLET.DR (FP) PO SCH (21:28)
[2017-11-11] MEDS: ATORVASTATIN CA 10 MG TABLET (FP) PO SCH (21:28)
[2017-11-11] MEDS: LACTULOSE 20 GM/30 ML UDC (FOR ORAL USE ONLY) PO SCH (21:29)
[2017-11-11] MEDS: INSULIN (LEVEMIR) 100 UNITS/ML UNITS SQ SCH (22:40)
[2017-11-11] MEDS: BUDESONIDE/FORMETEROL FUMARATE 160/4.5 mcg INHALER IH SCH (22:49)
[2017-11-12] MEDS ORDERED: DEXTROSE 5%-WATER - 50 ML IVPB ONE ×3 (00:58→16:52)
[2017-11-12] MEDS ORDERED: PIPERACILLIN/TAZOBACTAM 2.25 GM VIAL IVPB ONE ×3 (00:58→16:51)
[2017-11-12] MEDS: PIPERACILLIN/TAZOB 2.25 GM 2.25 GM in DEXTROSE 5%-WATER - 50 ML IVPB SCH ×3 (01:34→17:23)
[2017-11-12] MEDS: FUROSEMIDE 40 MG TABLET (FP) PO SCH ×2 (05:16→13:03)
[2017-11-12] MEDS: GABAPENTIN 100 MG CAPSULE (FP) PO SCH ×3 (05:16→22:45)
[2017-11-12] MEDS: METOPROLOL TARTRATE 50 MG TABLET (FP) PO SCH ×4 (05:16→22:46)
[2017-11-12] MEDS: INSULIN SLIDING SCALE (NOVOLOG) 1 VIAL SQ SCH ×4 (06:19→22:46)
[2017-11-12 07:07] LABS: BASO % 0.4 % (0-2.0); EOS % 2.9 % (0-4.5); HEMATOCRIT 25.6 % (32.4-45.2); HEMOGLOBIN 8.3 GM/dL (10.7-15.3); LYMPH % 17.8 % (8-40); MCHC 32.4 g/dl (32.0-36.0); MEAN CELL VOLUME 86.4 fl (80-96); MEAN PLT VOLUME 8.3 fl (7.5-11.1); MONO % 5.7 % (3.8-10.2); NEUT % 73.2 % (42.8-82.8); PLATELET COUNT 159 K/MM3 (134-434); RBC 2.96 M/mm3 (3.60-5.2); RDW 17.8 % (11.6-15.6); WHITE BLOOD COUNT 8.6 K/mm3 (4.0-10.0)
[2017-11-12 07:34] LABS: PROTHROMBIN TIME (PATIENT) 41.2 SEC (9.7-13.0)
[2017-11-12 07:38] LABS: INR 3.65 (0.83-1.09)
[2017-11-12 07:41] LABS: CHLORIDE 104 mmol/L (98-107); POTASSIUM 5.1 mmol/L (3.5-5.1); SODIUM 140 mmol/L (136-145)
[2017-11-12 08:00] LABS: ALBUMIN 2.7 g/dl (3.4-5.0); ALK PHOS 53 U/L (45-117); ANION GAP 4 (8-16); BILIRUBIN,TOTAL 0.3 mg/dL (0.2-1.0); CALCIUM 8.3 mg/dL (8.5-10.1); CHOLESTEROL 148 mg/dL (50-200); CO2 32 mmol/L (21-32); CREATININE 3.9 mg/dL (0.55-1.02); GLUCOSE,RANDOM 99 mg/dL (74-106); HDL CHOLESTEROL 38 mg/dL (40-60); MAGNESIUM 2.7 mg/dL (1.8-2.4); SGPT/ALT 16 U/L (12-78); TRIGLYCERIDES 76 mg/dL (35-160)
[2017-11-12 08:17] LABS: SGOT/AST 3 U/L (15-37)
[2017-11-12 08:20] LABS: BLOOD UREA NITROGEN 108 mg/dL (7-18)
--- NOTE | 2017-11-12 09:11 | EKG ---
Test Reason : Blood Pressure : / mmHG Vent. Rate : 065 BPM Atrial Rate : 033 BPM P-R Int : 000 ms QRS Dur : 106 ms QT Int : 414 ms P-R-T Axes : 000 040 070 degrees QTc Int : 430 ms NORMAL SINUS RHYTHM PREMATURE ATRIAL COMPLEXES INCOMPLETE LEFT BUNDLE BRANCH BLOCK ABNORMAL ECG Confirmed by RADHA VELASQUEZ, BISMARK ([id number]) on 11/12/2017 9:10:59 AM Referred By: Confirmed By:BISMARK GARCIA MD
[2017-11-12] MEDS: MULTIVITAMINS (DAILY MVI) TABLET (FP) PO SCH (10:56)
[2017-11-12] MEDS: FOLIC ACID 1 MG TABLET (FP) PO SCH (10:56)
[2017-11-12] MEDS: CHOLECALCIFEROL (VITAMIN D3) 1,000 UNIT TABLET (FP) PO SCH (10:56)
[2017-11-12] MEDS: NIFEdipine E.R. 90 MG TABLET (FP) PO SCH (10:56)
[2017-11-12] MEDS: ISOSORBIDE MONONITRATE 60 MG TAB.SR.24H (FP) PO SCH (10:56)
[2017-11-12] MEDS: CARVEDILOL 25 MG TABLET (FP) PO SCH (10:56)
[2017-11-12] MEDS: ALLOPURINOL 100 MG TABLET (FP) PO SCH (10:56)
[2017-11-12] MEDS: RANITIDINE HCL 150 MG TABLET (FP) PO SCH (10:57)
[2017-11-12] MEDS: IRON POLYSACCHARIDES 150 MG CAPSULE PO SCH (10:57)
[2017-11-12] MEDS: BUDESONIDE/FORMETEROL FUMARATE 160/4.5 mcg INHALER IH SCH ×2 (10:57→23:00)
--- NOTE | 2017-11-12 11:05 | PN ---
Progress Note (short form) - Note Progress Note: Chief Complaint: Events noted, notes reviewed, complaining of neck discomfort, denies any chest pain or shortness of breath, denies any orthpnea or PND History of Present Illness: Seen and examined on telemetry. Events noted, notes reviewed, complaining of neck discomfort, denies any chest pain or shortness of breath, denies any orthpnea or PND Medications: Current Medications Acetaminophen (Tylenol -) 650 mg PO Q6H PRN PRN Reason: PAIN LEVEL 1-5 Acetaminophen (Tylenol -) 650 mg PO Q8H PRN PRN Reason: PAIN LEVEL 6-10 Allopurinol (Zyloprim -) 100 mg PO DAILY [facility] Last Admin: 11/12/17 10:56 Dose: 100 mg Atorvastatin Calcium (Lipitor -) 10 mg PO [facility] Last Admin: 11/11/17 21:28 Dose: 10 mg Bisacodyl (Dulcolax -) 5 mg PO HS [facility] Last Admin: 11/11/17 21:28 Dose: 5 mg Budesonide/Formoterol Fumarate (Symbicort 160/4.5mcg -) 1 puff IH BID [facility] Last Admin: 11/12/17 10:57 Dose: 1 puff Carvedilol (Coreg -) 25 mg PO DAILY [facility] Last Admin: 11/12/17 10:56 Dose: 25 mg Cholecalciferol (Vitamin D3 -) 1,000 unit PO DAILY [facility] Last Admin: 11/12/17 10:56 Dose: 1,000 unit Docusate Sodium (Colace -) 100 mg PO HS [facility] Last Admin: 11/11/17 21:28 Dose: 100 mg Folic Acid (Folic Acid -) 1 mg PO DAILY [facility] Last Admin: 11/12/17 10:56 Dose: 1 mg Furosemide (Lasix -) 40 mg PO BID@0600,1400 [facility] Last Admin: 11/12/17 05:16 Dose: 40 mg Gabapentin (Neurontin -) 100 mg PO TID [facility] Last Admin: 11/12/17 05:16 Dose: 100 mg Piperacillin Sod/Tazobactam (Sod 2.25 gm/ Dextrose) 50 mls @ 100 mls/hr IVPB Q8H-IV [facility]; Protocol Last Admin: 11/12/17 10:57 Dose: 100 mls/hr Sodium Chloride (1/2 Normal Saline) 1,000 mls @ 50 mls/hr IV ASDIR [facility] Stop: 11/12/17 16:25 Last Admin: 11/11/17 17:21 Dose: 50 mls/hr Insulin Aspart (Novolog Vial Sliding Scale -) 1 vial SQ ACHS [facility]; Protocol Last Admin: 11/12/17 06:19 Dose: Not Given Insulin Detemir (Levemir Vial) 33 units SQ HS [facility] Last Admin: 11/11/17 22:40 Dose: 33 units Ipratropium [place] (Atrovent 0.02% Nebulizer -) 1 amp NEB Q6H PRN PRN Reason: SHORT OF BREATH/WHEEZING Last Admin: 11/12/17 08:05 Dose: 1 amp Isosorbide Mononitrate (Imdur -) 60 mg PO DAILY [facility] Last Admin: 11/12/17 10:56 Dose: 60 mg Lactulose (Cephulac (Oral Use)) 30 gm PO [facility] Last Admin: 11/11/17 21:29 Dose: Not Given Metolazone (Zaroxolyn -) 5 mg PO DAILY PRN PRN Reason: volume overload Metoprolol Tartrate (Lopressor -) 50 mg PO TID [facility] Last Admin: 11/12/17 05:16 Dose: 50 mg Multivitamins/Minerals/Vitamin C (Tab-A-Vit -) 1 tab PO DAILY [facility] Last Admin: 11/12/17 10:56 Dose: 1 tab Nifedipine (Procardia Xl -) 90 mg PO DAILY [facility] Last Admin: 11/12/17 10:56 Dose: 90 mg Oxycodone HCl (Roxicodone -) 10 mg PO Q8H PRN PRN Reason: PAIN LEVEL 6-10 Polysaccharide Iron Complex (Niferex-150 -) 150 mg PO DAILY [facility] Last Admin: 11/12/17 10:57 Dose: 150 mg Ranitidine HCl (Zantac -) 150 mg PO DAILY [facility] Last Admin: 11/12/17 10:57 Dose: 150 mg Review of Systems Review Of Systems: CARD: as noted above RESP: denies: cough or sputum production ABD: denies: nausea, vomiting, diarrhea, melena, hematemesis or abdominal discomfort MUSC: denies: joint pains but reports: Neck Discomfort NEURO: denies: headache, lightheadedness Vital Signs: Last Vital Signs Temp Pulse Resp BP Pulse Ox 98.2 F 62 20 144/58 98 11/12/17 01:51 11/12/17 01:51 11/12/17 01:51 11/12/17 01:51 11/12/17 06:00 Intake & Output 11/09/17 11/10/17 11/11/17 11/12/17 23:59 23:59 23:59 23:59 Intake Total 426 500 Output Total 400 Balance 26 500 Weight 330 lb 335 lb 5 oz Constitutional: No Distress, Calm Neck: Supple Negative JVD No Bruit Respiratory: Diminished at the Bases Cardiovascular: S1 S2 Irregularly Irregular Grade 1-2/6 FAWN Gastrointestinal: Soft Benign Normal Bowel Sounds Ext: Edema Bilaterally Labs: CBC, BMP 11/12/17 05:45 11/12/17 05:45 Hepatic Panel Total Bilirubin 0.3 mg/dL (0.2-1.0) 11/12/17 05:45 AST 3 U/L (15-37) L 11/12/17 05:45 ALT 16 U/L (12-78) 11/12/17 05:45 Alkaline Phosphatase 53 U/L (45-117) D 11/12/17 05:45 Albumin 2.7 g/dl (3.4-5.0) L 11/12/17 05:45 INR, PTT INR 3.65 (0.83-1.09) H* 11/12/17 05:45 Assessment/Plan ASSESSMENT: 1. Altered mental status, clinically resolved 2. Persistent atrial fibrillation with [id number] of 3-4 on Coumadin therapy with supra-therapeutic INR 3. CAD angina pectoris stable 4. Diastolic LV dysfunction with class 0-I NYHA classification LV failure 5. HTN 6. Hyperlipidemia 7. Acute on CKD with hyperkalemia 8. OSAS 9. Morbid obesity PLAN: 1. Continue Coumadin as per INR, hold today 2. Continue Lopressor (titrate dosage as needed and tolerated) and recommend D/ C Coreg (prefer avoiding dual B-Blockers) 3. Continue Procardia XL 4. Ideally should be on ACEI or ARBS, once renal function at baseline 5. Continue Imdur 6. Continue diuretics (Lasix and Zaroxolyn) with caution and close monitoring of renal function 7. Continue Lipitor Nevin Vasquez MD
[2017-11-12] MEDS: oxyCODONE HCL 5 MG TABLET PO PRN ×2 (12:34→22:50)
[2017-11-12] MEDS: ACETAMINOPHEN 325 MG TABLET (FP) PO PRN (12:35)
--- NOTE | 2017-11-12 13:15 | PN ---
Progress Note (short form) - Note Progress Note: patient seen and examined today. Much more alert and awake----back to baseline All follow-ups and consults noted and appreciated Patient's sister at bedside as well as [id number] Vital Signs Temp 98.2 F 11/12/17 01:51 Pulse 62 11/12/17 01:51 Resp 20 11/12/17 01:51 BP 144/58 11/12/17 01:51 Pulse Ox 98 11/12/17 06:00 Intake & Output 11/11/17 11/12/17 11/12/17 23:59 11:59 23:59 Intake Total 300 500 Balance 300 500 Weight 330 lb 335 lb 5 oz Intake: IV 200 350 1/2 Normal Saline 1,000 200 350 ml @ 50 mls/hr IV ASDIR [facility] Rx#:[id number] IVPB 50 Oral 100 100 Other: Voiding Method Diaper Diaper Bowel Movement No No Height 5 ft 2 in Body Mass Index (BMI) 60.3 Weight Measurement Method [facility] Active Medications Acetaminophen (Tylenol -) 650 mg PO Q6H PRN PRN Reason: PAIN LEVEL 1-5 Last Admin: 11/12/17 12:35 Dose: 650 mg Acetaminophen (Tylenol -) 650 mg PO Q8H PRN PRN Reason: PAIN LEVEL 6-10 Allopurinol (Zyloprim -) 100 mg PO DAILY [facility] Last Admin: 11/12/17 10:56 Dose: 100 mg Atorvastatin Calcium (Lipitor -) 10 mg PO [facility] Last Admin: 11/11/17 21:28 Dose: 10 mg Bisacodyl (Dulcolax -) 5 mg PO [facility] Last Admin: 11/11/17 21:28 Dose: 5 mg Budesonide/Formoterol Fumarate (Symbicort 160/4.5mcg -) 1 puff IH BID [facility] Last Admin: 11/12/17 10:57 Dose: 1 puff Carvedilol (Coreg -) 25 mg PO DAILY [facility] Last Admin: 11/12/17 10:56 Dose: 25 mg Cholecalciferol (Vitamin D3 -) 1,000 unit PO DAILY [facility] Last Admin: 11/12/17 10:56 Dose: 1,000 unit Docusate Sodium (Colace -) 100 mg PO [facility] Last Admin: 11/11/17 21:28 Dose: 100 mg Folic Acid (Folic Acid -) 1 mg PO DAILY [facility] Last Admin: 11/12/17 10:56 Dose: 1 mg Furosemide (Lasix -) 40 mg PO BID@0600,1400 [facility] Last Admin: 11/12/17 13:03 Dose: 40 mg Gabapentin (Neurontin -) 100 mg PO TID [facility] Last Admin: 11/12/17 13:03 Dose: 100 mg Piperacillin Sod/Tazobactam (Sod 2.25 gm/ Dextrose) 50 mls @ 100 mls/hr IVPB Q8H-IV [facility]; Protocol Last Admin: 11/12/17 10:57 Dose: 100 mls/hr Sodium Chloride (1/2 Normal Saline) 1,000 mls @ 50 mls/hr IV ASDIR [facility] Stop: 11/12/17 16:25 Last Admin: 11/11/17 17:21 Dose: 50 mls/hr Insulin Aspart (Novolog Vial Sliding Scale -) 1 vial SQ ACHS [facility]; Protocol Last Admin: 11/12/17 11:57 Dose: Not Given Insulin Detemir (Levemir Vial) 33 units SQ [facility] Last Admin: 11/11/17 22:40 Dose: 33 units Ipratropium [place] (Atrovent 0.02% Nebulizer -) 1 amp NEB Q6H PRN PRN Reason: SHORT OF BREATH/WHEEZING Last Admin: 11/12/17 08:05 Dose: 1 amp Isosorbide Mononitrate (Imdur -) 60 mg PO DAILY [facility] Last Admin: 11/12/17 10:56 Dose: 60 mg Lactulose (Cephulac (Oral Use)) 30 gm PO [facility] Last Admin: 11/11/17 21:29 Dose: Not Given Metolazone (Zaroxolyn -) 5 mg PO DAILY PRN PRN Reason: volume overload Metoprolol Tartrate (Lopressor -) 50 mg PO TID [facility] Last Admin: 11/12/17 13:03 Dose: 50 mg Multivitamins/Minerals/Vitamin C (Tab-A-Vit -) 1 tab PO DAILY [facility] Last Admin: 11/12/17 10:56 Dose: 1 tab Nifedipine (Procardia Xl -) 90 mg PO DAILY [facility] Last Admin: 11/12/17 10:56 Dose: 90 mg Oxycodone HCl (Roxicodone -) 10 mg PO Q8H PRN PRN Reason: PAIN LEVEL 6-10 Last Admin: 11/12/17 12:34 Dose: 10 mg Polysaccharide Iron Complex (Niferex-150 -) 150 mg PO DAILY [facility] Last Admin: 11/12/17 10:57 Dose: 150 mg Ranitidine HCl (Zantac -) 150 mg PO DAILY [facility] Last Admin: 11/12/17 10:57 Dose: 150 mg CBC, BMP 11/12/17 05:45 11/12/17 05:45 Microbiology 11/11/17 08:44 Urine Culture - Preliminary Urine - Urine - Catheterized Lactose Fermenting Neg Bacilli Proteus Species Pending Organism Physical Examination Constitutional: Yes: No Distress, Other (morbidly obese) Eyes: Yes: Conjunctiva Clear HENT: Yes: WNL Neck: Yes: Supple. No JVD Cardiovascular: Yes: Pulse Irregular. No: Regular Rate and Rhythm Respiratory: Yes: Diminished Gastrointestinal: Yes: Soft, Abdomen, Obese Edema: LLE: 2+, RLE: 2+ Neurological: Yes: Alert, Other (nonfocal)-- Assessment/Plan clinically back to baseline doubt TIA Will order ultrasound carotid also Echocardiogram--noted and reviewed Likely toxic metabolic encephalopathy--- resolving antibiotics follow-up cultures. Monitor INR--- monitor blood sugar Overall condition guarded--- but improved. Discussed in detail with patient's family. discussed with nursing staff also. Will follow. Problem List - Problems (1) Toxic metabolic encephalopathy Code(s): G92 - TOXIC ENCEPHALOPATHY (2) Pneumonia Code(s): J18.9 - PNEUMONIA, UNSPECIFIED ORGANISM (3) TIA (transient ischemic attack) Code(s): G45.9 - TRANSIENT CEREBRAL ISCHEMIC ATTACK, UNSPECIFIED (4) Afib Code(s): I48.91 - UNSPECIFIED ATRIAL FIBRILLATION Qualifiers: Atrial fibrillation type: persistent Qualified Code(s): I48.1 - Persistent atrial fibrillation (5) Anemia Code(s): D64.9 - ANEMIA, UNSPECIFIED Qualifiers: Anemia type: unspecified type Qualified Code(s): D64.9 - Anemia, unspecified (6) Anticoagulated on Coumadin Code(s): Z51.81 - ENCOUNTER FOR THERAPEUTIC DRUG LEVEL MONITORING; Z79.01 - FILTER WASHER AND PRESSER (CURRENT) USE OF 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 (7) CKD (chronic kidney disease) Code(s): N18.9 - CHRONIC KIDNEY DISEASE, UNSPECIFIED Qualifiers: Chronic kidney disease stage: unspecified stage Qualified Code(s): N18.9 - Chronic kidney disease, unspecified (8) COPD (chronic obstructive pulmonary disease) Code(s): J44.9 - CHRONIC OBSTRUCTIVE PULMONARY DISEASE, UNSPECIFIED (9) Diabetes 1.5, managed as type 1 Code(s): E13.9 - OTHER SPECIFIED DIABETES MELLITUS WITHOUT COMPLICATIONS (10) Functional quadriplegia Code(s): R53.2 - FUNCTIONAL QUADRIPLEGIA
--- NOTE | 2017-11-12 13:42 | PN ---
Progress Note, Physician History of Present Illness: Infectious Disease Progress Note: Pt is alert and fully responsive. States she feels less weak and shaky than yesterday. Denies fever/chills, SOB/cough, abd pain/n/v/d. - Current Medication List Current Medications: Active Medications Acetaminophen (Tylenol -) 650 mg PO Q6H PRN PRN Reason: PAIN LEVEL 1-5 Last Admin: 11/12/17 12:35 Dose: 650 mg Acetaminophen (Tylenol -) 650 mg PO Q8H PRN PRN Reason: PAIN LEVEL 6-10 Allopurinol (Zyloprim -) 100 mg PO DAILY [facility] Last Admin: 11/12/17 10:56 Dose: 100 mg Atorvastatin Calcium (Lipitor -) 10 mg PO [facility] Last Admin: 11/11/17 21:28 Dose: 10 mg Bisacodyl (Dulcolax -) 5 mg PO HS [facility] Last Admin: 11/11/17 21:28 Dose: 5 mg Budesonide/Formoterol Fumarate (Symbicort 160/4.5mcg -) 1 puff IH BID [facility] Last Admin: 11/12/17 10:57 Dose: 1 puff Carvedilol (Coreg -) 25 mg PO DAILY [facility] Last Admin: 11/12/17 10:56 Dose: 25 mg Cholecalciferol (Vitamin D3 -) 1,000 unit PO DAILY [facility] Last Admin: 11/12/17 10:56 Dose: 1,000 unit Docusate Sodium (Colace -) 100 mg PO HS [facility] Last Admin: 11/11/17 21:28 Dose: 100 mg Folic Acid (Folic Acid -) 1 mg PO DAILY [facility] Last Admin: 11/12/17 10:56 Dose: 1 mg Furosemide (Lasix -) 40 mg PO BID@0600,1400 [facility] Last Admin: 11/12/17 13:03 Dose: 40 mg Gabapentin (Neurontin -) 100 mg PO TID [facility] Last Admin: 11/12/17 13:03 Dose: 100 mg Piperacillin Sod/Tazobactam (Sod 2.25 gm/ Dextrose) 50 mls @ 100 mls/hr IVPB Q8H-IV [facility]; Protocol Last Admin: 11/12/17 10:57 Dose: 100 mls/hr Sodium Chloride (1/2 Normal Saline) 1,000 mls @ 50 mls/hr IV ASDIR [facility] Stop: 11/12/17 16:25 Last Admin: 11/11/17 17:21 Dose: 50 mls/hr Insulin Aspart (Novolog Vial Sliding Scale -) 1 vial SQ [facility]; Protocol Last Admin: 11/12/17 11:57 Dose: Not Given Insulin Detemir (Levemir Vial) 33 units SQ [facility] Last Admin: 11/11/17 22:40 Dose: 33 units Ipratropium [place] (Atrovent 0.02% Nebulizer -) 1 amp NEB Q6H PRN PRN Reason: SHORT OF BREATH/WHEEZING Last Admin: 11/12/17 08:05 Dose: 1 amp Isosorbide Mononitrate (Imdur -) 60 mg PO DAILY [facility] Last Admin: 11/12/17 10:56 Dose: 60 mg Lactulose (Cephulac (Oral Use)) 30 gm PO [facility] Last Admin: 11/11/17 21:29 Dose: Not Given Metolazone (Zaroxolyn -) 5 mg PO DAILY PRN PRN Reason: volume overload Metoprolol Tartrate (Lopressor -) 50 mg PO TID [facility] Last Admin: 11/12/17 13:03 Dose: 50 mg Multivitamins/Minerals/Vitamin C (Tab-A-Vit -) 1 tab PO DAILY [facility] Last Admin: 11/12/17 10:56 Dose: 1 tab Nifedipine (Procardia Xl -) 90 mg PO DAILY [facility] Last Admin: 11/12/17 10:56 Dose: 90 mg Oxycodone HCl (Roxicodone -) 10 mg PO Q8H PRN PRN Reason: PAIN LEVEL 6-10 Last Admin: 11/12/17 12:34 Dose: 10 mg Polysaccharide Iron Complex (Niferex-150 -) 150 mg PO DAILY [facility] Last Admin: 11/12/17 10:57 Dose: 150 mg Ranitidine HCl (Zantac -) 150 mg PO DAILY [facility] Last Admin: 11/12/17 10:57 Dose: 150 mg - Objective Vital Signs: Vital Signs Temperature 98.2 F 11/12/17 01:51 Pulse Rate 62 11/12/17 01:51 Respiratory Rate 20 11/12/17 01:51 Blood Pressure 144/58 11/12/17 01:51 O2 Sat by Pulse Oximetry (%) 98 11/12/17 06:00 Constitutional: Yes: No Distress, Calm Cardiovascular: Yes: Regular Rate and Rhythm Respiratory: Yes: Regular Gastrointestinal: Yes: Normal Bowel Sounds, Soft, Abdomen, Obese Edema: LLE: 4+, RLE: 4+ Neurological: Yes: Alert, Oriented Labs: CBC, BMP 11/12/17 05:45 11/12/17 05:45 INR, PTT INR 3.65 (0.83-1.09) H* 11/12/17 05:45 Microbiology 11/11/17 08:44 Urine - Urine - Catheterized Urine Culture - Preliminary Lactose Fermenting Neg Bacilli Proteus Species Pending Organism - ....Imaging Chest X-ray: Report Reviewed Cat Scan: Report Reviewed Problem List - Problems (1) TIA (transient ischemic attack) Code(s): G45.9 - TRANSIENT CEREBRAL ISCHEMIC ATTACK, UNSPECIFIED (2) Weakness Code(s): R53.1 - WEAKNESS (3) Acute on chronic renal insufficiency Code(s): N28.9 - DISORDER OF KIDNEY AND URETER, UNSPECIFIED; N18.9 - CHRONIC KIDNEY DISEASE, UNSPECIFIED (4) Afib Code(s): I48.91 - UNSPECIFIED ATRIAL FIBRILLATION Qualifiers: Atrial fibrillation type: persistent Qualified Code(s): I48.1 - Persistent atrial fibrillation (5) Anemia Code(s): D64.9 - ANEMIA, UNSPECIFIED Qualifiers: Anemia type: unspecified type Qualified Code(s): D64.9 - Anemia, unspecified (6) CHF (congestive heart failure) Code(s): I50.9 - HEART FAILURE, UNSPECIFIED (7) CKD (chronic kidney disease) Code(s): N18.9 - CHRONIC KIDNEY DISEASE, UNSPECIFIED Qualifiers: Chronic kidney disease stage: unspecified stage Qualified Code(s): N18.9 - Chronic kidney disease, unspecified (8) COPD (chronic obstructive pulmonary disease) Code(s): J44.9 - CHRONIC OBSTRUCTIVE PULMONARY DISEASE, UNSPECIFIED (9) Diabetes mellitus Code(s): E11.9 - TYPE 2 DIABETES MELLITUS WITHOUT COMPLICATIONS Qualifiers: Chronic kidney disease stage: unspecified stage (10) Morbid obesity Code(s): E66.01 - MORBID (SEVERE) OBESITY DUE TO EXCESS CALORIES (11) UTI (urinary tract infection) Code(s): N39.0 - URINARY TRACT INFECTION, SITE NOT SPECIFIED Qualifiers: Urinary tract infection type: site unspecified Hematuria presence: without hematuria Qualified Code(s): N39.0 - Urinary tract infection, site not specified Assessment/Plan 72 y.o. female with morbid obesity, DM, CKD, CHF, COPD, Atrial Fib, HTN, HLD presented with c/o of AMS/weakness with Rt arm weakness and Lt facial droop. Noted to have elevated wbc count. Currently feeling better. UTI Leukocytosis DM r/o TIA CKD CHF Morbid Obesity COPD Atrial Fib - continue current empiric antibiotics - f/u urine culture results - wbc now normal, pt alert afebrile - neurology, nephrology following continue monitor
--- NOTE | 2017-11-12 15:39 | PN ---
Progress Note, Physician History of Present Illness: Pt seen and examined at bedside. She is awake and alert. She denies shortness of breath. - Current Medication List Current Medications: Active Medications Acetaminophen (Tylenol -) 650 mg PO Q6H PRN PRN Reason: PAIN LEVEL 1-5 Last Admin: 11/12/17 12:35 Dose: 650 mg Acetaminophen (Tylenol -) 650 mg PO Q8H PRN PRN Reason: PAIN LEVEL 6-10 Allopurinol (Zyloprim -) 100 mg PO DAILY [facility] Last Admin: 11/12/17 10:56 Dose: 100 mg Atorvastatin Calcium (Lipitor -) 10 mg PO HS [facility] Last Admin: 11/11/17 21:28 Dose: 10 mg Bisacodyl (Dulcolax -) 5 mg PO HS [facility] Last Admin: 11/11/17 21:28 Dose: 5 mg Budesonide/Formoterol Fumarate (Symbicort 160/4.5mcg -) 1 puff IH BID [facility] Last Admin: 11/12/17 10:57 Dose: 1 puff Carvedilol (Coreg -) 25 mg PO DAILY [facility] Last Admin: 11/12/17 10:56 Dose: 25 mg Cholecalciferol (Vitamin D3 -) 1,000 unit PO DAILY [facility] Last Admin: 11/12/17 10:56 Dose: 1,000 unit Docusate Sodium (Colace -) 100 mg PO HS [facility] Last Admin: 11/11/17 21:28 Dose: 100 mg Folic Acid (Folic Acid -) 1 mg PO DAILY [facility] Last Admin: 11/12/17 10:56 Dose: 1 mg Furosemide (Lasix -) 40 mg PO BID@0600,1400 [facility] Last Admin: 11/12/17 13:03 Dose: 40 mg Gabapentin (Neurontin -) 100 mg PO TID [facility] Last Admin: 11/12/17 13:03 Dose: 100 mg Piperacillin Sod/Tazobactam (Sod 2.25 gm/ Dextrose) 50 mls @ 100 mls/hr IVPB Q8H-IV [facility]; Protocol Last Admin: 11/12/17 10:57 Dose: 100 mls/hr Sodium Chloride (1/2 Normal Saline) 1,000 mls @ 50 mls/hr IV ASDIR [facility] Stop: 11/12/17 16:25 Last Admin: 08/03/18 17:21 Dose: 50 mls/hr Insulin Aspart (Novolog Vial Sliding Scale -) 1 vial SQ [facility]; Protocol Last Admin: 11/12/17 11:57 Dose: Not Given Insulin Detemir (Levemir Vial) 33 units SQ [facility] Last Admin: 11/11/17 22:40 Dose: 33 units Ipratropium [place] (Atrovent 0.02% Nebulizer -) 1 amp NEB Q6H PRN PRN Reason: SHORT OF BREATH/WHEEZING Last Admin: 11/12/17 08:05 Dose: 1 amp Isosorbide Mononitrate (Imdur -) 60 mg PO DAILY [facility] Last Admin: 11/12/17 10:56 Dose: 60 mg Lactulose (Cephulac (Oral Use)) 30 gm PO [facility] Last Admin: 11/11/17 21:29 Dose: Not Given Metolazone (Zaroxolyn -) 5 mg PO DAILY PRN PRN Reason: volume overload Metoprolol Tartrate (Lopressor -) 50 mg PO TID [facility] Last Admin: 11/12/17 13:03 Dose: 50 mg Multivitamins/Minerals/Vitamin C (Tab-A-Vit -) 1 tab PO DAILY [facility] Last Admin: 11/12/17 10:56 Dose: 1 tab Nifedipine (Procardia Xl -) 90 mg PO DAILY [facility] Last Admin: 11/12/17 10:56 Dose: 90 mg Oxycodone HCl (Roxicodone -) 10 mg PO Q8H PRN PRN Reason: PAIN LEVEL 6-10 Last Admin: 11/12/17 12:34 Dose: 10 mg Polysaccharide Iron Complex (Niferex-150 -) 150 mg PO DAILY [facility] Last Admin: 11/12/17 10:57 Dose: 150 mg Ranitidine HCl (Zantac -) 150 mg PO DAILY [facility] Last Admin: 11/12/17 10:57 Dose: 150 mg - Objective Vital Signs: Vital Signs Temperature 97.6 F 11/12/17 15:15 Pulse Rate 59 L 11/12/17 15:15 Respiratory Rate 20 11/12/17 15:15 Blood Pressure 120/51 11/12/17 15:15 O2 Sat by Pulse Oximetry (%) 98 11/12/17 10:00 Constitutional: Yes: Calm Eyes: Yes: Conjunctiva Clear HENT: Yes: Atraumatic Cardiovascular: Yes: S1, S2 Respiratory: Yes: CTA Bilaterally Gastrointestinal: Yes: Soft, Abdomen, Obese Genitourinary: Yes: WNL Musculoskeletal: Yes: Other (obese) Edema: Yes Edema: LLE: 1+, RLE: 1+ Neurological: Yes: Oriented Psychiatric: Yes: Oriented Labs: CBC, BMP 11/12/17 05:45 11/12/17 05:45 INR, PTT INR 3.65 (0.83-1.09) H* 11/12/17 05:45 Problem List - Problems (1) TIA (transient ischemic attack) Code(s): G45.9 - TRANSIENT CEREBRAL ISCHEMIC ATTACK, UNSPECIFIED (2) Weakness Code(s): R53.1 - WEAKNESS (3) Abdominal pain Code(s): R10.9 - UNSPECIFIED ABDOMINAL PAIN Qualifiers: Abdominal location: lower abdomen (4) Afib Code(s): I48.91 - UNSPECIFIED ATRIAL FIBRILLATION Qualifiers: Atrial fibrillation type: persistent Qualified Code(s): I48.1 - Persistent atrial fibrillation (5) Anemia Code(s): D64.9 - ANEMIA, UNSPECIFIED Qualifiers: Anemia type: unspecified type Qualified Code(s): D64.9 - Anemia, unspecified (6) CHF (congestive heart failure) Code(s): I50.9 - HEART FAILURE, UNSPECIFIED (7) CKD (chronic kidney disease) Code(s): N18.9 - CHRONIC KIDNEY DISEASE, UNSPECIFIED Qualifiers: Chronic kidney disease stage: unspecified stage Qualified Code(s): N18.9 - Chronic kidney disease, unspecified (8) Diabetes mellitus Code(s): E11.9 - TYPE 2 DIABETES MELLITUS WITHOUT COMPLICATIONS Qualifiers: Chronic kidney disease stage: unspecified stage (9) Obesity Code(s): E66.9 - OBESITY, UNSPECIFIED Assessment/Plan Current Medications Generic Name Dose Route Start Last Admin Trade Name Freq PRN Reason Stop Dose Admin Acetaminophen 650 mg 11/11/17 11:35 11/12/17 12:35 Tylenol - PO 650 mg Q6H PRN Administration PAIN LEVEL 1-5 Acetaminophen 650 mg 11/11/17 16:43 Tylenol - PO Q8H PRN PAIN LEVEL 6-10 Allopurinol 100 mg 11/12/17 10:00 11/12/17 10:56 Zyloprim - PO 100 mg DAILY [facility] Administration Atorvastatin Calcium 10 mg 11/11/17 22:00 11/11/17 21:28 Lipitor - PO 10 mg HS [facility] Administration Bisacodyl 5 mg 11/11/17 22:00 11/11/17 21:28 Dulcolax - PO 5 mg HS [facility] Administration Budesonide/Formoterol Fumarate 1 puff 11/11/17 22:00 11/12/17 10:57 Symbicort 160/4.5mcg - IH 1 puff BID [facility] Administration Carvedilol 25 mg 11/12/17 10:00 11/12/17 10:56 Coreg - PO 25 mg DAILY [facility] Administration Cholecalciferol 1,000 unit 11/12/17 10:00 11/12/17 10:56 Vitamin D3 - PO 1,000 unit DAILY [facility] Administration Docusate Sodium 100 mg 11/11/17 22:00 11/11/17 21:28 Colace - PO 100 mg HS [facility] Administration Folic Acid 1 mg 11/12/17 10:00 11/12/17 10:56 Folic Acid - PO 1 mg DAILY [facility] Administration Furosemide 40 mg 11/11/17 14:00 11/12/17 13:03 Lasix - PO 40 mg BID@0600,1400 [facility] Administration Gabapentin 100 mg 11/11/17 14:00 11/12/17 13:03 Neurontin - PO 100 mg TID [facility] Administration Piperacillin Sod/Tazobactam 50 mls @ 100 mls/hr 11/11/17 18:00 11/12/17 10:57 Sod 2.25 gm/ Dextrose IVPB 100 mls/hr Q8H-IV [facility] Administration Protocol Sodium Chloride 1,000 mls @ 50 mls/hr 11/11/17 16:30 11/11/17 17:21 1/2 Normal Saline IV 11/12/17 16:25 50 mls/hr ASDIR [facility] Administration Insulin Aspart 1 vial 11/11/17 16:30 11/12/17 11:57 Novolog Vial Sliding Scale - SQ Not Given ACHS [facility] Protocol Insulin Detemir 33 units 11/11/17 22:00 11/11/17 22:40 Levemir Vial SQ 33 units HS [facility] Administration Ipratropium [place] 1 amp 11/11/17 11:28 11/12/17 08:05 Atrovent 0.02% Nebulizer - NEB 1 amp Q6H PRN Administration SHORT OF BREATH/WHEEZING Isosorbide Mononitrate 60 mg 11/12/17 10:00 11/12/17 10:56 Imdur - PO 60 mg DAILY [facility] Administration Lactulose 30 gm 11/11/17 22:00 11/11/17 21:29 Cephulac (Oral Use) PO Not Given HS [facility] Metolazone 5 mg 11/11/17 11:28 Zaroxolyn - PO DAILY PRN volume overload Metoprolol Tartrate 50 mg 11/11/17 14:00 11/12/17 13:03 Lopressor - PO 50 mg TID [facility] Administration Multivitamins/Minerals/Vitamin C 1 tab 11/12/17 10:00 11/12/17 10:56 Tab-A-Vit - PO 1 tab DAILY [facility] Administration Nifedipine 90 mg 11/12/17 10:00 11/12/17 10:56 Procardia Xl - PO 90 mg DAILY [facility] Administration Oxycodone HCl 10 mg 11/11/17 16:42 11/12/17 12:34 Roxicodone - PO 10 mg Q8H PRN Administration PAIN LEVEL 6-10 Polysaccharide Iron Complex 150 mg 11/12/17 10:00 11/12/17 10:57 Niferex-150 - PO 150 mg DAILY [facility] Administration Ranitidine HCl 150 mg 11/12/17 10:00 11/12/17 10:57 Zantac - PO 150 mg DAILY [facility] Administration Impression 1. CKD 2. obesity 3. hyperlipidemia 4. HTN 5. DM 6. CHF 7. CAD 8. anemia 9. a-fib 10. iron deficiency 11. r/o TIA 12. hyperkalemia Plan - potassium is stabilizing - renal function is stabilizing - will keep on 1/2 ns to help wash down potassium - cont current meds - recommend that pt gets a fistula in preparation for HD however she is refusing - neuro follow up Dr Capps
[2017-11-12] MEDS: LACTULOSE 20 GM/30 ML UDC (FOR ORAL USE ONLY) PO SCH (22:45)
[2017-11-12] MEDS: DOCUSATE SODIUM 100 MG CAPSULE (FP) PO SCH (22:45)
[2017-11-12] MEDS: ATORVASTATIN CA 10 MG TABLET (FP) PO SCH (22:45)
[2017-11-12] MEDS: BISACODYL 5 MG TABLET.DR (FP) PO SCH (23:00)
[2017-11-12] MEDS: INSULIN (LEVEMIR) 100 UNITS/ML UNITS SQ SCH (23:27)
[2017-11-13] MEDS: BUDESONIDE/FORMETEROL FUMARATE 160/4.5 mcg INHALER IH SCH ×3 (00:06→22:31)
[2017-11-13] MEDS ORDERED: PIPERACILLIN/TAZOBACTAM 2.25 GM VIAL IVPB ONE ×3 (01:14→17:14)
[2017-11-13] MEDS ORDERED: DEXTROSE 5%-WATER - 50 ML IVPB ONE ×3 (01:14→17:14)
[2017-11-13] MEDS: PIPERACILLIN/TAZOB 2.25 GM 2.25 GM in DEXTROSE 5%-WATER - 50 ML IVPB SCH ×3 (01:40→17:51)
[2017-11-13] MEDS: FUROSEMIDE 40 MG TABLET (FP) PO SCH ×2 (05:45→13:01)
[2017-11-13] MEDS: GABAPENTIN 100 MG CAPSULE (FP) PO SCH ×3 (05:46→22:31)
[2017-11-13] MEDS: METOPROLOL TARTRATE 50 MG TABLET (FP) PO SCH ×3 (05:46→22:38)
[2017-11-13] MEDS: INSULIN SLIDING SCALE (NOVOLOG) 1 VIAL SQ SCH ×4 (06:41→22:32)
[2017-11-13 07:32] LABS: PROTHROMBIN TIME (PATIENT) 46.8 SEC (9.7-13.0)
[2017-11-13 07:33] LABS: ANION GAP 3 (8-16); CALCIUM 8.5 mg/dL (8.5-10.1); CHLORIDE 103 mmol/L (98-107); CO2 35 mmol/L (21-32); CREATININE 3.8 mg/dL (0.55-1.02); GLUCOSE,RANDOM 97 mg/dL (74-106); POTASSIUM 5.4 mmol/L (3.5-5.1); SODIUM 141 mmol/L (136-145)
[2017-11-13 07:38] LABS: BLOOD UREA NITROGEN 105 mg/dL (7-18)
[2017-11-13 08:34] LABS: INR 4.14 (0.83-1.09)
[2017-11-13] MEDS: CHOLECALCIFEROL (VITAMIN D3) 1,000 UNIT TABLET (FP) PO SCH (09:19)
[2017-11-13] MEDS: CARVEDILOL 25 MG TABLET (FP) PO SCH (09:19)
[2017-11-13] MEDS: IRON POLYSACCHARIDES 150 MG CAPSULE PO SCH (09:19)
[2017-11-13] MEDS: NIFEdipine E.R. 90 MG TABLET (FP) PO SCH (09:19)
[2017-11-13] MEDS: MULTIVITAMINS (DAILY MVI) TABLET (FP) PO SCH (09:19)
[2017-11-13] MEDS: FOLIC ACID 1 MG TABLET (FP) PO SCH (09:19)
[2017-11-13] MEDS: ALLOPURINOL 100 MG TABLET (FP) PO SCH (09:19)
[2017-11-13] MEDS: RANITIDINE HCL 150 MG TABLET (FP) PO SCH (09:19)
[2017-11-13] MEDS: ISOSORBIDE MONONITRATE 60 MG TAB.SR.24H (FP) PO SCH (09:19)
--- NOTE | 2017-11-13 11:00 | PN ---
Progress Note (short form) - Note Progress Note: Chief Complaint: Events noted, notes reviewed, neck discomfort resolved, denies any chest pain or shortness of breath, denies any orthpnea or PND History of Present Illness: Seen and examined on telemetry. Events noted, notes reviewed, neck discomfort resolved, denies any chest pain or shortness of breath, denies any orthpnea or PND Medications: Current Medications Acetaminophen (Tylenol -) 650 mg PO Q6H PRN PRN Reason: PAIN LEVEL 1-5 Last Admin: 11/12/17 12:35 Dose: 650 mg Acetaminophen (Tylenol -) 650 mg PO Q8H PRN PRN Reason: PAIN LEVEL 6-10 Allopurinol (Zyloprim -) 100 mg PO DAILY [facility] Last Admin: 11/13/17 09:19 Dose: 100 mg Atorvastatin Calcium (Lipitor -) 10 mg PO HS [facility] Last Admin: 11/12/17 22:45 Dose: 10 mg Bisacodyl (Dulcolax -) 5 mg PO HS [facility] Last Admin: 11/12/17 23:00 Dose: Not Given Budesonide/Formoterol Fumarate (Symbicort 160/4.5mcg -) 1 puff IH BID [facility] Last Admin: 11/13/17 09:20 Dose: 1 puff Carvedilol (Coreg -) 25 mg PO DAILY [facility] Last Admin: 11/13/17 09:19 Dose: 25 mg Cholecalciferol (Vitamin D3 -) 1,000 unit PO DAILY [facility] Last Admin: 11/13/17 09:19 Dose: 1,000 unit Docusate Sodium (Colace -) 100 mg PO HS [facility] Last Admin: 11/12/17 22:45 Dose: 100 mg Folic Acid (Folic Acid -) 1 mg PO DAILY [facility] Last Admin: 11/13/17 09:19 Dose: 1 mg Furosemide (Lasix -) 40 mg PO BID@0600,1400 [facility] Last Admin: 11/13/17 05:45 Dose: 40 mg Gabapentin (Neurontin -) 100 mg PO TID [facility] Last Admin: 11/13/17 05:46 Dose: 100 mg Piperacillin Sod/Tazobactam (Sod 2.25 gm/ Dextrose) 50 mls @ 100 mls/hr IVPB Q8H-IV [facility]; Protocol Last Admin: 11/13/17 09:19 Dose: 100 mls/hr Insulin Aspart (Novolog Vial Sliding Scale -) 1 vial SQ [facility]; Protocol Last Admin: 11/13/17 06:41 Dose: Not Given Insulin Detemir (Levemir Vial) 33 units SQ [facility] Last Admin: 11/12/17 23:27 Dose: 33 units Ipratropium [place] (Atrovent 0.02% Nebulizer -) 1 amp NEB Q6H PRN PRN Reason: SHORT OF BREATH/WHEEZING Last Admin: 11/12/17 08:05 Dose: 1 amp Isosorbide Mononitrate (Imdur -) 60 mg PO DAILY [facility] Last Admin: 11/13/17 09:19 Dose: 60 mg Lactulose (Cephulac (Oral Use)) 30 gm PO [facility] Last Admin: 11/12/17 22:45 Dose: Not Given Metolazone (Zaroxolyn -) 5 mg PO DAILY PRN PRN Reason: volume overload Metoprolol Tartrate (Lopressor -) 50 mg PO TID [facility] Last Admin: 11/13/17 05:46 Dose: 50 mg Multivitamins/Minerals/Vitamin C (Tab-A-Vit -) 1 tab PO DAILY [facility] Last Admin: 11/13/17 09:19 Dose: 1 tab Nifedipine (Procardia Xl -) 90 mg PO DAILY [facility] Last Admin: 11/13/17 09:19 Dose: 90 mg Oxycodone HCl (Roxicodone -) 10 mg PO Q8H PRN PRN Reason: PAIN LEVEL 6-10 Last Admin: 11/12/17 22:50 Dose: 10 mg Polysaccharide Iron Complex (Niferex-150 -) 150 mg PO DAILY [facility] Last Admin: 11/13/17 09:19 Dose: 150 mg Ranitidine HCl (Zantac -) 150 mg PO DAILY [facility] Last Admin: 11/13/17 09:19 Dose: 150 mg Review of Systems Review Of Systems: CARD: as noted above RESP: denies: cough or sputum production ABD: denies: nausea, vomiting, diarrhea, melena, hematemesis or abdominal discomfort MUSC: denies: joint pains NEURO: denies: headache, lightheadedness Vital Signs: Last Vital Signs Temp Pulse Resp BP Pulse Ox 97.9 F 72 18 116/59 97 11/13/17 09:00 11/13/17 09:00 11/13/17 09:00 11/13/17 09:00 11/12/17 21:00 Intake & Output 11/10/17 11/11/17 11/12/17 11/13/17 23:59 23:59 23:59 23:59 Intake Total 426 750 230 Output Total 400 Balance 26 750 230 Weight 330 lb 335 lb 5 oz 329 lb 3 oz Constitutional: No Distress, Calm Neck: Supple Negative JVD No Bruit Respiratory: Diminished at the Bases Cardiovascular: S1 S2 Irregularly Irregular Grade 1-2/6 FAWN Gastrointestinal: Soft Benign Normal Bowel Sounds Ext: Edema Bilaterally Labs: CBC, BMP 11/12/17 05:45 11/13/17 06:05 Hepatic Panel Total Bilirubin 0.3 mg/dL (0.2-1.0) 11/12/17 05:45 AST 3 U/L (15-37) L 11/12/17 05:45 ALT 16 U/L (12-78) 11/12/17 05:45 Alkaline Phosphatase 53 U/L (45-117) D 11/12/17 05:45 Albumin 2.7 g/dl (3.4-5.0) L 11/12/17 05:45 INR, PTT INR 4.14 (0.83-1.09) H* 11/13/17 06:05 Assessment/Plan ASSESSMENT: 1. Altered mental status, clinically resolved 2. Persistent atrial fibrillation with [id number] of 3-4 on Coumadin therapy with supra-therapeutic INR 3. CAD angina pectoris stable 4. Diastolic LV dysfunction with class 0-I NYHA classification LV failure 5. HTN 6. Hyperlipidemia 7. Acute on CKD with hyperkalemia 8. OSAS 9. anemia 10. Morbid obesity PLAN: 1. Continue Coumadin as per INR, hold today 2. Continue Lopressor (titrate dosage as needed and tolerated) and recommend D/ C Coreg (prefer avoiding dual B-Blockers) 3. Continue Procardia XL 4. Ideally should be on ACEI or ARBS, once renal function at baseline 5. Continue Imdur 6. Continue diuretics (Lasix and Zaroxolyn) with caution and close monitoring of renal function 7. Continue Lipitor 8. Renal followup Nevin Vasquez MD
[2017-11-13] MEDS: ACETAMINOPHEN 325 MG TABLET (FP) PO PRN (13:01)
--- NOTE | 2017-11-13 13:01 | PN ---
Progress Note (short form) - Note Progress Note: patient seen and examined Overall feels better Denies cough No chest pain Denies any urinary burning Vital Signs Temp 97.9 F 11/13/17 09:00 Pulse 72 11/13/17 09:00 Resp 18 11/13/17 09:00 BP 116/59 11/13/17 09:00 Pulse Ox 97 11/13/17 10:00 Intake & Output 11/12/17 11/13/17 11/13/17 23:59 11:59 23:59 Intake Total 100 230 Balance 100 230 Weight 329 lb 3 oz Intake: IVPB 50 Oral 100 180 Other: Voiding Method Diaper Diaper # Unmeasured Voids Straight Cath 1 3 Bowel Movement Yes Weight Measurement Method [facility] Active Medications Acetaminophen (Tylenol -) 650 mg PO Q6H PRN PRN Reason: PAIN LEVEL 1-5 Last Admin: 11/12/17 12:35 Dose: 650 mg Acetaminophen (Tylenol -) 650 mg PO Q8H PRN PRN Reason: PAIN LEVEL 6-10 Allopurinol (Zyloprim -) 100 mg PO DAILY [facility] Last Admin: 11/13/17 09:19 Dose: 100 mg Atorvastatin Calcium (Lipitor -) 10 mg PO [facility] Last Admin: 11/12/17 22:45 Dose: 10 mg Bisacodyl (Dulcolax -) 5 mg PO [facility] Last Admin: 11/12/17 23:00 Dose: Not Given Budesonide/Formoterol Fumarate (Symbicort 160/4.5mcg -) 1 puff IH BID [facility] Last Admin: 11/13/17 09:20 Dose: 1 puff Cholecalciferol (Vitamin D3 -) 1,000 unit PO DAILY [facility] Last Admin: 11/13/17 09:19 Dose: 1,000 unit Docusate Sodium (Colace -) 100 mg PO [facility] Last Admin: 11/12/17 22:45 Dose: 100 mg Folic Acid (Folic Acid -) 1 mg PO DAILY [facility] Last Admin: 11/13/17 09:19 Dose: 1 mg Furosemide (Lasix -) 40 mg PO BID@0600,1400 [facility] Last Admin: 11/13/17 05:45 Dose: 40 mg Gabapentin (Neurontin -) 100 mg PO TID [facility] Last Admin: 11/13/17 05:46 Dose: 100 mg Piperacillin Sod/Tazobactam (Sod 2.25 gm/ Dextrose) 50 mls @ 100 mls/hr IVPB Q8H-IV [facility]; Protocol Last Admin: 11/13/17 09:19 Dose: 100 mls/hr Insulin Aspart (Novolog Vial Sliding Scale -) 1 vial SQ ACHS [facility]; Protocol Last Admin: 11/13/17 12:04 Dose: Not Given Insulin Detemir (Levemir Vial) 33 units SQ HS [facility] Last Admin: 11/12/17 23:27 Dose: 33 units Ipratropium [place] (Atrovent 0.02% Nebulizer -) 1 amp NEB Q6H PRN PRN Reason: SHORT OF BREATH/WHEEZING Last Admin: 11/12/17 08:05 Dose: 1 amp Isosorbide Mononitrate (Imdur -) 60 mg PO DAILY [facility] Last Admin: 11/13/17 09:19 Dose: 60 mg Lactulose (Cephulac (Oral Use)) 30 gm PO [facility] Last Admin: 11/12/17 22:45 Dose: Not Given Metolazone (Zaroxolyn -) 5 mg PO DAILY PRN PRN Reason: volume overload Metoprolol Tartrate (Lopressor -) 50 mg PO TID [facility] Last Admin: 11/13/17 05:46 Dose: 50 mg Multivitamins/Minerals/Vitamin C (Tab-A-Vit -) 1 tab PO DAILY [facility] Last Admin: 11/13/17 09:19 Dose: 1 tab Nifedipine (Procardia Xl -) 90 mg PO DAILY [facility] Last Admin: 11/13/17 09:19 Dose: 90 mg Oxycodone HCl (Roxicodone -) 10 mg PO Q8H PRN PRN Reason: PAIN LEVEL 6-10 Last Admin: 11/12/17 22:50 Dose: 10 mg Polysaccharide Iron Complex (Niferex-150 -) 150 mg PO DAILY [facility] Last Admin: 11/13/17 09:19 Dose: 150 mg Ranitidine HCl (Zantac -) 150 mg PO DAILY [facility] Last Admin: 11/13/17 09:19 Dose: 150 mg CBC, BMP 11/12/17 05:45 11/13/17 06:05 Microbiology 11/11/17 08:44 Urine Culture - Preliminary Urine - Urine - Catheterized Lactose Fermenting Neg Bacilli Proteus Mirabilis Streptococcus Species Physical Examination Constitutional: Yes: No Distress, Other (morbidly obese) Eyes: Yes: Conjunctiva Clear HENT: Yes: WNL Neck: Yes: Supple. No JVD Cardiovascular: Yes: Pulse Irregular. No: Regular Rate and Rhythm Respiratory: Yes: Diminished Gastrointestinal: Yes: Soft, Abdomen, Obese Edema: LLE: 2+, RLE: 2+ Neurological: Yes: Alert, Other (nonfocal)-- Assessment/Plan clinically back to baseline doubt TIA overall better Continue present care Will need the ulcers in the near future--discussed about AV fistula/access--not willing at Continue present care Antibiotics I' ID to follow. Follow up cultures. Will follow. Problem List - Problems (1) Toxic metabolic encephalopathy Code(s): G92 - TOXIC ENCEPHALOPATHY (2) Pneumonia Code(s): J18.9 - PNEUMONIA, UNSPECIFIED ORGANISM (3) TIA (transient ischemic attack) Code(s): G45.9 - TRANSIENT CEREBRAL ISCHEMIC ATTACK, UNSPECIFIED (4) Afib Code(s): I48.91 - UNSPECIFIED ATRIAL FIBRILLATION Qualifiers: Atrial fibrillation type: persistent Qualified Code(s): I48.1 - Persistent atrial fibrillation (5) Anemia Code(s): D64.9 - ANEMIA, UNSPECIFIED Qualifiers: Anemia type: unspecified type Qualified Code(s): D64.9 - Anemia, unspecified (6) Anticoagulated on Coumadin Code(s): Z51.81 - ENCOUNTER FOR THERAPEUTIC DRUG LEVEL MONITORING; Z79.01 - INTERMEDIATE (CURRENT) USE OF 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 (7) CKD (chronic kidney disease) Code(s): N18.9 - CHRONIC KIDNEY DISEASE, UNSPECIFIED Qualifiers: Chronic kidney disease stage: unspecified stage Qualified Code(s): N18.9 - Chronic kidney disease, unspecified (8) COPD (chronic obstructive pulmonary disease) Code(s): J44.9 - CHRONIC OBSTRUCTIVE PULMONARY DISEASE, UNSPECIFIED (9) Diabetes 1.5, managed as type 1 Code(s): E13.9 - OTHER SPECIFIED DIABETES MELLITUS WITHOUT COMPLICATIONS (10) Functional quadriplegia Code(s): R53.2 - FUNCTIONAL QUADRIPLEGIA
--- NOTE | 2017-11-13 13:20 | PN ---
Progress Note, Physician History of Present Illness: Pt seen and examined at bedside. She is awake and alert. She denies shortness of breath. - Current Medication List Current Medications: Active Medications Acetaminophen (Tylenol -) 650 mg PO Q6H PRN PRN Reason: PAIN LEVEL 1-5 Last Admin: 11/13/17 13:01 Dose: 650 mg Acetaminophen (Tylenol -) 650 mg PO Q8H PRN PRN Reason: PAIN LEVEL 6-10 Allopurinol (Zyloprim -) 100 mg PO DAILY [facility] Last Admin: 11/13/17 09:19 Dose: 100 mg Atorvastatin Calcium (Lipitor -) 10 mg PO HS [facility] Last Admin: 11/12/17 22:45 Dose: 10 mg Bisacodyl (Dulcolax -) 5 mg PO HS [facility] Last Admin: 11/12/17 23:00 Dose: Not Given Budesonide/Formoterol Fumarate (Symbicort 160/4.5mcg -) 1 puff IH BID [facility] Last Admin: 11/13/17 09:20 Dose: 1 puff Cholecalciferol (Vitamin D3 -) 1,000 unit PO DAILY [facility] Last Admin: 11/13/17 09:19 Dose: 1,000 unit Docusate Sodium (Colace -) 100 mg PO HS [facility] Last Admin: 11/12/17 22:45 Dose: 100 mg Folic Acid (Folic Acid -) 1 mg PO DAILY [facility] Last Admin: 11/13/17 09:19 Dose: 1 mg Furosemide (Lasix -) 40 mg PO BID@0600,1400 [facility] Last Admin: 11/13/17 13:01 Dose: 40 mg Gabapentin (Neurontin -) 100 mg PO TID [facility] Last Admin: 11/13/17 13:01 Dose: 100 mg Piperacillin Sod/Tazobactam (Sod 2.25 gm/ Dextrose) 50 mls @ 100 mls/hr IVPB Q8H-IV [facility]; Protocol Last Admin: 11/13/17 09:19 Dose: 100 mls/hr Insulin Aspart (Novolog Vial Sliding Scale -) 1 vial SQ ACHS [facility]; Protocol Last Admin: 11/13/17 12:04 Dose: Not Given Insulin Detemir (Levemir Vial) 33 units SQ HS [facility] Last Admin: 11/12/17 23:27 Dose: 33 units Ipratropium [place] (Atrovent 0.02% Nebulizer -) 1 amp NEB Q6H PRN PRN Reason: SHORT OF BREATH/WHEEZING Last Admin: 11/12/17 08:05 Dose: 1 amp Isosorbide Mononitrate (Imdur -) 60 mg PO DAILY [facility] Last Admin: 11/13/17 09:19 Dose: 60 mg Lactulose (Cephulac (Oral Use)) 30 gm PO HS [facility] Last Admin: 11/12/17 22:45 Dose: Not Given Metolazone (Zaroxolyn -) 5 mg PO DAILY PRN PRN Reason: volume overload Metoprolol Tartrate (Lopressor -) 50 mg PO TID [facility] Last Admin: 11/13/17 13:09 Dose: Not Given Multivitamins/Minerals/Vitamin C (Tab-A-Vit -) 1 tab PO DAILY [facility] Last Admin: 11/13/17 09:19 Dose: 1 tab Nifedipine (Procardia Xl -) 90 mg PO DAILY [facility] Last Admin: 11/13/17 09:19 Dose: 90 mg Oxycodone HCl (Roxicodone -) 10 mg PO Q8H PRN PRN Reason: PAIN LEVEL 6-10 Last Admin: 11/12/17 22:50 Dose: 10 mg Polysaccharide Iron Complex (Niferex-150 -) 150 mg PO DAILY [facility] Last Admin: 11/13/17 09:19 Dose: 150 mg Ranitidine HCl (Zantac -) 150 mg PO DAILY [facility] Last Admin: 11/13/17 09:19 Dose: 150 mg - Objective Vital Signs: Vital Signs Temperature 97.9 F 11/13/17 09:00 Pulse Rate 72 11/13/17 09:00 Respiratory Rate 18 11/13/17 09:00 Blood Pressure 116/59 11/13/17 09:00 O2 Sat by Pulse Oximetry (%) 97 11/13/17 10:00 Constitutional: Yes: Calm Eyes: Yes: Conjunctiva Clear HENT: Yes: Atraumatic Neck: Yes: Supple Cardiovascular: Yes: S1, S2 Respiratory: Yes: CTA Bilaterally, On Nasal O2 Gastrointestinal: Yes: Soft, Abdomen, Obese Genitourinary: Yes: Incontinence Musculoskeletal: Yes: WNL Edema: Yes Edema: LLE: 1+, RLE: 1+ Neurological: Yes: Oriented Psychiatric: Yes: Oriented Labs: CBC, BMP 11/12/17 05:45 11/13/17 06:05 INR, PTT INR 4.14 (0.83-1.09) H* 11/13/17 06:05 Problem List - Problems (1) TIA (transient ischemic attack) Code(s): G45.9 - TRANSIENT CEREBRAL ISCHEMIC ATTACK, UNSPECIFIED (2) Weakness Code(s): R53.1 - WEAKNESS (3) Abdominal pain Code(s): R10.9 - UNSPECIFIED ABDOMINAL PAIN Qualifiers: Abdominal location: lower abdomen (4) Afib Code(s): I48.91 - UNSPECIFIED ATRIAL FIBRILLATION Qualifiers: Atrial fibrillation type: persistent Qualified Code(s): I48.1 - Persistent atrial fibrillation (5) Anemia Code(s): D64.9 - ANEMIA, UNSPECIFIED Qualifiers: Anemia type: unspecified type Qualified Code(s): D64.9 - Anemia, unspecified (6) CHF (congestive heart failure) Code(s): I50.9 - HEART FAILURE, UNSPECIFIED (7) CKD (chronic kidney disease) Code(s): N18.9 - CHRONIC KIDNEY DISEASE, UNSPECIFIED Qualifiers: Chronic kidney disease stage: unspecified stage Qualified Code(s): N18.9 - Chronic kidney disease, unspecified (8) Diabetes mellitus Code(s): E11.9 - TYPE 2 DIABETES MELLITUS WITHOUT COMPLICATIONS Qualifiers: Chronic kidney disease stage: unspecified stage (9) Obesity Code(s): E66.9 - OBESITY, UNSPECIFIED Assessment/Plan Current Medications Generic Name Dose Route Start Last Admin Trade Name Freq PRN Reason Stop Dose Admin Acetaminophen 650 mg 11/11/17 11:35 11/13/17 13:01 Tylenol - PO 650 mg Q6H PRN Administration PAIN LEVEL 1-5 Acetaminophen 650 mg 11/11/17 16:43 Tylenol - PO Q8H PRN PAIN LEVEL 6-10 Allopurinol 100 mg 11/12/17 10:00 11/13/17 09:19 Zyloprim - PO 100 mg DAILY [facility] Administration Atorvastatin Calcium 10 mg 11/11/17 22:00 11/12/17 22:45 Lipitor - PO 10 mg HS [facility] Administration Bisacodyl 5 mg 11/11/17 22:00 11/12/17 23:00 Dulcolax - PO Not Given HS [facility] Budesonide/Formoterol Fumarate 1 puff 08/03/18 22:00 11/13/17 09:20 Symbicort 160/4.5mcg - IH 1 puff BID [facility] Administration Cholecalciferol 1,000 unit 11/12/17 10:00 11/13/17 09:19 Vitamin D3 - PO 1,000 unit DAILY [facility] Administration Docusate Sodium 100 mg 11/11/17 22:00 11/12/17 22:45 Colace - PO 100 mg HS [facility] Administration Folic Acid 1 mg 11/12/17 10:00 11/13/17 09:19 Folic Acid - PO 1 mg DAILY [facility] Administration Furosemide 40 mg 11/11/17 14:00 11/13/17 13:01 Lasix - PO 40 mg BID@0600,1400 [facility] Administration Gabapentin 100 mg 11/11/17 14:00 11/13/17 13:01 Neurontin - PO 100 mg TID [facility] Administration Piperacillin Sod/Tazobactam 50 mls @ 100 mls/hr 11/11/17 18:00 11/13/17 09:19 Sod 2.25 gm/ Dextrose IVPB 100 mls/hr Q8H-IV [facility] Administration Protocol Insulin Aspart 1 vial 11/11/17 16:30 11/13/17 12:04 Novolog Vial Sliding Scale - SQ Not Given ACHS [facility] Protocol Insulin Detemir 33 units 11/11/17 22:00 11/12/17 23:27 Levemir Vial SQ 33 units HS [facility] Administration Ipratropium [place] 1 amp 11/11/17 11:28 11/12/17 08:05 Atrovent 0.02% Nebulizer - NEB 1 amp Q6H PRN Administration SHORT OF BREATH/WHEEZING Isosorbide Mononitrate 60 mg 11/12/17 10:00 11/13/17 09:19 Imdur - PO 60 mg DAILY [facility] Administration Lactulose 30 gm 11/11/17 22:00 11/12/17 22:45 Cephulac (Oral Use) PO Not Given HS [facility] Metolazone 5 mg 11/11/17 11:28 Zaroxolyn - PO DAILY PRN volume overload Metoprolol Tartrate 50 mg 11/11/17 14:00 11/13/17 13:09 Lopressor - PO Not Given TID [facility] Multivitamins/Minerals/Vitamin C 1 tab 11/12/17 10:00 11/13/17 09:19 Tab-A-Vit - PO 1 tab DAILY [facility] Administration Nifedipine 90 mg 11/12/17 10:00 11/13/17 09:19 Procardia Xl - PO 90 mg DAILY [facility] Administration Oxycodone HCl 10 mg 11/11/17 16:42 11/12/17 22:50 Roxicodone - PO 10 mg Q8H PRN Administration PAIN LEVEL 6-10 Polysaccharide Iron Complex 150 mg 11/12/17 10:00 11/13/17 09:19 Niferex-150 - PO 150 mg DAILY [facility] Administration Ranitidine HCl 150 mg 11/12/17 10:00 11/13/17 09:19 Zantac - PO 150 mg DAILY [facility] Administration Impression 1. CKD 2. obesity 3. hyperlipidemia 4. HTN 5. DM 6. CHF 7. CAD 8. anemia 9. a-fib 10. iron deficiency 11. r/o TIA 12. 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
[2017-11-13] MEDS ORDERED: SODIUM CHLORIDE 0.45% 1,000 ML IV SCH (13:30)
--- NOTE | 2017-11-13 16:09 | PN ---
Progress Note, Physician History of Present Illness: Infectious Disease Progress Note: Pt remains afebrile, alert. Has no new complaints. - Current Medication List Current Medications: Active Medications Acetaminophen (Tylenol -) 650 mg PO Q6H PRN PRN Reason: PAIN LEVEL 1-5 Last Admin: 11/13/17 13:01 Dose: 650 mg Acetaminophen (Tylenol -) 650 mg PO Q8H PRN PRN Reason: PAIN LEVEL 6-10 Allopurinol (Zyloprim -) 100 mg PO DAILY [facility] Last Admin: 11/13/17 09:19 Dose: 100 mg Atorvastatin Calcium (Lipitor -) 10 mg PO HS [facility] Last Admin: 11/12/17 22:45 Dose: 10 mg Bisacodyl (Dulcolax -) 5 mg PO HS [facility] Last Admin: 11/12/17 23:00 Dose: Not Given Budesonide/Formoterol Fumarate (Symbicort 160/4.5mcg -) 1 puff IH BID [facility] Last Admin: 11/13/17 09:20 Dose: 1 puff Cholecalciferol (Vitamin D3 -) 1,000 unit PO DAILY [facility] Last Admin: 11/13/17 09:19 Dose: 1,000 unit Docusate Sodium (Colace -) 100 mg PO HS [facility] Last Admin: 11/12/17 22:45 Dose: 100 mg Folic Acid (Folic Acid -) 1 mg PO DAILY [facility] Last Admin: 11/13/17 09:19 Dose: 1 mg Furosemide (Lasix -) 40 mg PO BID@0600,1400 [facility] Last Admin: 11/13/17 13:01 Dose: 40 mg Gabapentin (Neurontin -) 100 mg PO TID [facility] Last Admin: 11/13/17 13:01 Dose: 100 mg Piperacillin Sod/Tazobactam (Sod 2.25 gm/ Dextrose) 50 mls @ 100 mls/hr IVPB Q8H-IV [facility]; Protocol Last Admin: 11/13/17 09:19 Dose: 100 mls/hr Sodium Chloride (1/2 Normal Saline) 1,000 mls @ 75 mls/hr IV ASDIR [facility] Stop: 11/13/17 19:29 Last Admin: 11/13/17 13:55 Dose: 75 mls/hr Insulin Aspart (Novolog Vial Sliding Scale -) 1 vial SQ ACHS [facility]; Protocol Last Admin: 11/13/17 12:04 Dose: Not Given Insulin Detemir (Levemir Vial) 33 units SQ [facility] Last Admin: 11/12/17 23:27 Dose: 33 units Ipratropium [place] (Atrovent 0.02% Nebulizer -) 1 amp NEB Q6H PRN PRN Reason: SHORT OF BREATH/WHEEZING Last Admin: 11/12/17 08:05 Dose: 1 amp Isosorbide Mononitrate (Imdur -) 60 mg PO DAILY [facility] Last Admin: 11/13/17 09:19 Dose: 60 mg Lactulose (Cephulac (Oral Use)) 30 gm PO HS [facility] Last Admin: 11/12/17 22:45 Dose: Not Given Metolazone (Zaroxolyn -) 5 mg PO DAILY PRN PRN Reason: volume overload Metoprolol Tartrate (Lopressor -) 50 mg PO TID [facility] Last Admin: 11/13/17 13:09 Dose: Not Given Multivitamins/Minerals/Vitamin C (Tab-A-Vit -) 1 tab PO DAILY [facility] Last Admin: 11/13/17 09:19 Dose: 1 tab Nifedipine (Procardia Xl -) 90 mg PO DAILY [facility] Last Admin: 11/13/17 09:19 Dose: 90 mg Oxycodone HCl (Roxicodone -) 10 mg PO Q8H PRN PRN Reason: PAIN LEVEL 6-10 Last Admin: 11/12/17 22:50 Dose: 10 mg Polysaccharide Iron Complex (Niferex-150 -) 150 mg PO DAILY [facility] Last Admin: 11/13/17 09:19 Dose: 150 mg Ranitidine HCl (Zantac -) 150 mg PO DAILY [facility] Last Admin: 11/13/17 09:19 Dose: 150 mg - Objective Vital Signs: Vital Signs Temperature 98.2 F 11/13/17 15:00 Pulse Rate 58 L 11/13/17 15:00 Respiratory Rate 18 11/13/17 15:00 Blood Pressure 129/54 11/13/17 15:00 O2 Sat by Pulse Oximetry (%) 97 11/13/17 10:00 Constitutional: Yes: No Distress, Calm Neck: Yes: Supple Cardiovascular: Yes: Pulse Irregular Respiratory: Yes: Regular Gastrointestinal: Yes: Normal Bowel Sounds, Soft, Abdomen, Obese Genitourinary: Yes: [place] Present Integumentary: Yes: WNL Neurological: Yes: Alert, Oriented Labs: CBC, BMP 11/12/17 05:45 11/13/17 06:05 INR, PTT INR 4.14 (0.83-1.09) H* 11/13/17 06:05 Microbiology 11/11/17 08:44 Urine - Urine - Catheterized Urine Culture - Preliminary Lactose Fermenting Neg Bacilli Proteus Mirabilis Streptococcus Species Problem List - Problems (1) TIA (transient ischemic attack) Code(s): G45.9 - TRANSIENT CEREBRAL ISCHEMIC ATTACK, UNSPECIFIED (2) Weakness Code(s): R53.1 - WEAKNESS (3) Acute on chronic renal insufficiency Code(s): N28.9 - DISORDER OF KIDNEY AND URETER, UNSPECIFIED; N18.9 - CHRONIC KIDNEY DISEASE, UNSPECIFIED (4) Afib Code(s): I48.91 - UNSPECIFIED ATRIAL FIBRILLATION Qualifiers: Atrial fibrillation type: persistent Qualified Code(s): I48.1 - Persistent atrial fibrillation (5) Anemia Code(s): D64.9 - ANEMIA, UNSPECIFIED Qualifiers: Anemia type: unspecified type Qualified Code(s): D64.9 - Anemia, unspecified (6) CHF (congestive heart failure) Code(s): I50.9 - HEART FAILURE, UNSPECIFIED (7) CKD (chronic kidney disease) Code(s): N18.9 - CHRONIC KIDNEY DISEASE, UNSPECIFIED Qualifiers: Chronic kidney disease stage: unspecified stage Qualified Code(s): N18.9 - Chronic kidney disease, unspecified (8) COPD (chronic obstructive pulmonary disease) Code(s): J44.9 - CHRONIC OBSTRUCTIVE PULMONARY DISEASE, UNSPECIFIED (9) Diabetes mellitus Code(s): E11.9 - TYPE 2 DIABETES MELLITUS WITHOUT COMPLICATIONS Qualifiers: Chronic kidney disease stage: unspecified stage (10) Morbid obesity Code(s): E66.01 - MORBID (SEVERE) OBESITY DUE TO EXCESS CALORIES (11) UTI (urinary tract infection) Code(s): N39.0 - URINARY TRACT INFECTION, SITE NOT SPECIFIED Qualifiers: Urinary tract infection type: site unspecified Hematuria presence: without hematuria Qualified Code(s): N39.0 - Urinary tract infection, site not specified Assessment/Plan 72 y.o. female with morbid obesity, DM, CKD, CHF, COPD, Atrial Fib, HTN, HLD presented with c/o of AMS/weakness with Rt arm weakness and Lt facial droop. Noted to have elevated wbc count UTI Leukocytosis DM r/o TIA CKD CHF Morbid Obesity COPD Atrial Fib - continue current antibiotics, plan adjust if indicated based on final urine culture results - nephrology following, recommending HD - wbc normal, afebrile continue monitor
[2017-11-13] MEDS: oxyCODONE HCL 5 MG TABLET PO PRN (17:59)
[2017-11-13] MEDS ORDERED: PT OWN MED DRAWER 7, Y5N ONE (22:22)
[2017-11-13] MEDS: LACTULOSE 20 GM/30 ML UDC (FOR ORAL USE ONLY) PO SCH ×2 (22:30→22:34)
[2017-11-13] MEDS: BISACODYL 5 MG TABLET.DR (FP) PO SCH (22:31)
[2017-11-13] MEDS: DOCUSATE SODIUM 100 MG CAPSULE (FP) PO SCH (22:31)
[2017-11-13] MEDS: ATORVASTATIN CA 10 MG TABLET (FP) PO SCH (22:31)
[2017-11-13] MEDS: INSULIN (LEVEMIR) 100 UNITS/ML UNITS SQ SCH (22:32)
[2017-11-14] MEDS ORDERED: DEXTROSE 5%-WATER - 50 ML IVPB ONE ×2 (01:02→10:42)
[2017-11-14] MEDS ORDERED: PIPERACILLIN/TAZOBACTAM 2.25 GM VIAL IVPB ONE ×2 (01:02→10:42)
[2017-11-14] MEDS ORDERED: PT OWN MED DRAWER 7, Y5N ONE ×2 (01:04→10:43)
[2017-11-14] MEDS: PIPERACILLIN/TAZOB 2.25 GM 2.25 GM in DEXTROSE 5%-WATER - 50 ML IVPB SCH ×3 (01:08→19:33)
[2017-11-14] MEDS: INSULIN SLIDING SCALE (NOVOLOG) 1 VIAL SQ SCH ×3 (06:02→19:33)
[2017-11-14] MEDS: METOPROLOL TARTRATE 50 MG TABLET (FP) PO SCH ×2 (06:10→14:20)
[2017-11-14] MEDS: GABAPENTIN 100 MG CAPSULE (FP) PO SCH ×2 (06:10→14:20)
[2017-11-14] MEDS: FUROSEMIDE 40 MG TABLET (FP) PO SCH ×2 (06:11→14:20)
[2017-11-14 06:57] LABS: PROTHROMBIN TIME (PATIENT) 34.8 SEC (9.7-13.0)
[2017-11-14 07:14] LABS: INR 3.08 (0.83-1.09)
[2017-11-14 07:26] LABS: ALBUMIN 2.7 g/dl (3.4-5.0); ANION GAP 5 (8-16); BILIRUBIN,TOTAL 0.3 mg/dL (0.2-1.0); CALCIUM 8.4 mg/dL (8.5-10.1); CHLORIDE 103 mmol/L (98-107); CO2 33 mmol/L (21-32); CREATININE 3.8 mg/dL (0.55-1.02); GLUCOSE,RANDOM 87 mg/dL (74-106); POTASSIUM 5.1 mmol/L (3.5-5.1); SGOT/AST 12 U/L (15-37); SGPT/ALT 18 U/L (12-78); SODIUM 141 mmol/L (136-145); TOT PROT 6.1 g/dl (6.4-8.2)
[2017-11-14 07:27] LABS: ALK PHOS 57 U/L (45-117)
[2017-11-14 07:30] LABS: BLOOD UREA NITROGEN 105 mg/dL (7-18)
[2017-11-14] MEDS: ALLOPURINOL 100 MG TABLET (FP) PO SCH (10:47)
[2017-11-14] MEDS: ISOSORBIDE MONONITRATE 60 MG TAB.SR.24H (FP) PO SCH (10:47)
[2017-11-14] MEDS: RANITIDINE HCL 150 MG TABLET (FP) PO SCH (10:47)
[2017-11-14] MEDS: NIFEdipine E.R. 90 MG TABLET (FP) PO SCH (10:47)
[2017-11-14] MEDS: IRON POLYSACCHARIDES 150 MG CAPSULE PO SCH (10:47)
[2017-11-14] MEDS: MULTIVITAMINS (DAILY MVI) TABLET (FP) PO SCH (10:47)
[2017-11-14] MEDS: BUDESONIDE/FORMETEROL FUMARATE 160/4.5 mcg INHALER IH SCH (10:48)
[2017-11-14] MEDS: FOLIC ACID 1 MG TABLET (FP) PO SCH (10:48)
--- NOTE | 2017-11-14 11:25 | PN ---
Progress Note, Physician History of Present Illness: Left sided facial droop, right arm weakness, altered mental status and slurred speech all since resolved. - Current Medication List Current Medications: Active Medications Acetaminophen (Tylenol -) 650 mg PO Q6H PRN PRN Reason: PAIN LEVEL 1-5 Last Admin: 11/13/17 13:01 Dose: 650 mg Acetaminophen (Tylenol -) 650 mg PO Q8H PRN PRN Reason: PAIN LEVEL 6-10 Allopurinol (Zyloprim -) 100 mg PO DAILY [facility] Last Admin: 11/14/17 10:47 Dose: 100 mg Atorvastatin Calcium (Lipitor -) 10 mg PO [facility] Last Admin: 11/13/17 22:31 Dose: 10 mg Bisacodyl (Dulcolax -) 5 mg PO [facility] Last Admin: 11/13/17 22:31 Dose: 5 mg Budesonide/Formoterol Fumarate (Symbicort 160/4.5mcg -) 1 puff IH BID [facility] Last Admin: 11/14/17 10:48 Dose: 1 puff Cholecalciferol (Vitamin D3 -) 1,000 unit PO DAILY [facility] Last Admin: 11/13/17 09:19 Dose: 1,000 unit Docusate Sodium (Colace -) 100 mg PO [facility] Last Admin: 11/13/17 22:31 Dose: 100 mg Folic Acid (Folic Acid -) 1 mg PO DAILY [facility] Last Admin: 11/14/17 10:48 Dose: 1 mg Furosemide (Lasix -) 40 mg PO BID@0600,1400 [facility] Last Admin: 11/14/17 06:11 Dose: 40 mg Gabapentin (Neurontin -) 100 mg PO TID [facility] Last Admin: 11/14/17 06:10 Dose: 100 mg Piperacillin Sod/Tazobactam (Sod 2.25 gm/ Dextrose) 50 mls @ 100 mls/hr IVPB Q8H-IV [facility]; Protocol Last Admin: 11/14/17 10:49 Dose: 100 mls/hr Insulin Aspart (Novolog Vial Sliding Scale -) 1 vial SQ [facility]; Protocol Last Admin: 11/14/17 06:02 Dose: Not Given Insulin Detemir (Levemir Vial) 33 units SQ [facility] Last Admin: 11/13/17 22:32 Dose: 33 units Ipratropium [place] (Atrovent 0.02% Nebulizer -) 1 amp NEB Q6H PRN PRN Reason: SHORT OF BREATH/WHEEZING Last Admin: 11/12/17 08:05 Dose: 1 amp Isosorbide Mononitrate (Imdur -) 60 mg PO DAILY [facility] Last Admin: 11/14/17 10:47 Dose: 60 mg Lactulose (Cephulac (Oral Use)) 30 gm PO HS [facility] Last Admin: 11/13/17 22:34 Dose: Not Given Metolazone (Zaroxolyn -) 5 mg PO DAILY PRN PRN Reason: volume overload Metoprolol Tartrate (Lopressor -) 50 mg PO TID [facility] Last Admin: 11/14/17 06:10 Dose: Not Given Multivitamins/Minerals/Vitamin C (Tab-A-Vit -) 1 tab PO DAILY [facility] Last Admin: 11/14/17 10:47 Dose: 1 tab Nifedipine (Procardia Xl -) 90 mg PO DAILY [facility] Last Admin: 11/14/17 10:47 Dose: 90 mg Oxycodone HCl (Roxicodone -) 10 mg PO Q8H PRN PRN Reason: PAIN LEVEL 6-10 Last Admin: 11/13/17 17:59 Dose: 10 mg Polysaccharide Iron Complex (Niferex-150 -) 150 mg PO DAILY [facility] Last Admin: 11/14/17 10:47 Dose: 150 mg Ranitidine HCl (Zantac -) 150 mg PO DAILY [facility] Last Admin: 11/14/17 10:47 Dose: 150 mg - Objective Vital Signs: Vital Signs Temperature 98.6 F 11/14/17 10:00 Pulse Rate 60 11/14/17 10:00 Respiratory Rate 20 11/14/17 10:00 Blood Pressure 127/50 11/14/17 10:00 O2 Sat by Pulse Oximetry (%) 97 11/13/17 21:00 Constitutional: Yes: No Distress, Calm Neck: Yes: Supple Cardiovascular: Yes: Pulse Irregular Respiratory: Yes: Regular, Diminished Gastrointestinal: Yes: Normal Bowel Sounds, Soft, Abdomen, Obese Edema: No Labs: CBC, BMP 11/12/17 05:45 11/14/17 05:30 INR, PTT INR 3.08 (0.83-1.09) H* 11/14/17 05:30 - ....Imaging EKG: Report Reviewed (Tele: Afib) Problem List - Problems (1) Acute on chronic renal insufficiency Code(s): N28.9 - DISORDER OF KIDNEY AND URETER, UNSPECIFIED; N18.9 - CHRONIC KIDNEY DISEASE, UNSPECIFIED (2) Afib Code(s): I48.91 - UNSPECIFIED ATRIAL FIBRILLATION Qualifiers: Atrial fibrillation type: persistent Qualified Code(s): I48.1 - Persistent atrial fibrillation (3) Anemia Code(s): D64.9 - ANEMIA, UNSPECIFIED Qualifiers: Anemia type: unspecified type Qualified Code(s): D64.9 - Anemia, unspecified (4) Anticoagulated on Coumadin Code(s): Z51.81 - ENCOUNTER FOR THERAPEUTIC DRUG LEVEL MONITORING; Z79.01 - TAX CONSULTANT (CURRENT) USE OF 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 (5) CHF (congestive heart failure) Code(s): I50.9 - HEART FAILURE, UNSPECIFIED (6) Functional quadriplegia Code(s): R53.2 - FUNCTIONAL QUADRIPLEGIA (7) Hyperkalemia Code(s): E87.5 - HYPERKALEMIA (8) Morbid obesity Code(s): E66.01 - MORBID (SEVERE) OBESITY DUE TO EXCESS CALORIES (9) Sleep apnea in adult Code(s): G47.33 - OBSTRUCTIVE SLEEP APNEA (ADULT) (PEDIATRIC) (10) Supratherapeutic INR Code(s): R79.1 - ABNORMAL COAGULATION PROFILE Assessment/Plan echo 10/2017 TDS, normal LV fxn echo 09/2015 tds echo 01/2013: tds, nl lvef, valves not seen well cath 11/2007: normal cors 1. Altered mental status referable to toxic-metabolic encephelopathy since resolved 2. Persistent afib on coumadin with supratherapeutic INR 3. Chronic diastolic failure 4. HTN 5. Hyperlipidemia 6. Acute on CKD with hyperkalemia 7. Morbid obesity, with OSAS/OHS suspected PLAN: 1. Continue Coumadin as per INR, hold today 2. Continue Lopressor 50 tid 3. Continue Procardia XL 90 qd 4. Ideally should be on ACEI or ARBS, once renal function at baseline 5. Continue Imdur 60 qd 6. Continue Lasix 40 bid, Zaroxolyn 5 qd, renal follow-up with caution and close monitoring of renal function 7. Continue Lipitor 10 qhs 8. Abx per ID, BD
--- NOTE | 2017-11-14 13:11 | DS ---
Physical Examination Vital Signs: Vital Signs Temperature 98.6 F 11/14/17 10:00 Pulse Rate 60 11/14/17 10:00 Respiratory Rate 20 11/14/17 10:00 Blood Pressure 127/50 11/14/17 10:00 O2 Sat by Pulse Oximetry (%) 97 11/13/17 21:00 Findings/Remarks: feels well no new issues all the follow-ups noted Constitutional: Yes: No Distress, Obese Neck: Yes: Supple Cardiovascular: Yes: Regular Rate and Rhythm Respiratory: Yes: Diminished Gastrointestinal: Yes: Soft, Abdomen, Obese Edema: No Neurological: Yes: Alert Psychiatric: Yes: Alert Labs: CBC, BMP 11/12/17 05:45 11/14/17 05:30 Discharge Summary Reason For Visit: WEAKNESS TRANSIENT ISCHEMIC ATTACK Current Active Problems Pneumonia (Acute) TIA (transient ischemic attack) (Acute) Toxic metabolic encephalopathy (Acute) Weakness (Acute) Hospital Course: Admitted due to possible TIA CT head negative for acute CVA Likely toxic metabolic encephalopathy Found to have urinary tract infection/Possible pneumonia ( treated with antibiotics Much better Wants to go back to senior care Will discharge today--- 2 more days--- of antibiotics in the senior care--- Zosyn follow-up chest x-ray in 3-4 weeks Discussed with correctional counselor/case manager also Medications reconciled. Anticipate discharge later today Discussed again about access for dialysis--- patient not willing yet Patient reports she will discuss with her PMD in the senior care Time spent in preparing discharge/documenting/examining--- 35 minutes Condition: Stable - Instructions Referrals: Diana Whitmore MD [Primary Care Provider] - - Home Medications Comprehensive Discharge Medication List: Ambulatory Orders Allopurinol [Zyloprim -] 100 mg PO DAILY 10/14/17 Ascorbic Acid [C-500] 500 mg PO DAILY 10/14/17 Atorvastatin Calcium 10 mg PO HS 10/14/17 Bisacodyl [Gentle Laxative] 5 mg PO HS 10/14/17 Budesonide/Formeterol Fumarate [SYMBICORT 160/4.5mcg -] 1 inh PO BID 10/14/17 Carvedilol 25 mg PO DAILY 10/14/17 Cholecalciferol (Vitamin D3) [Vitamin D3] 1,000 unit PO DAILY 10/14/17 Docusate Sodium [Colace] 100 mg PO HS 10/14/17 Folic Acid 1 mg PO DAILY 10/14/17 Gabapentin [Neurontin -] 100 mg PO Q8H 10/14/17 Insulin Detemir [Levemir Flextouch] 33 unit SQ HS 10/14/17 Ipratropium [place] 0.2 mg IH Q6H PRN 10/14/17 Iron Polysaccharide Complex [Ferrex 150] 150 mg PO DAILY 10/14/17 Isosorbide Mononitrate 60 mg PO DAILY 10/14/17 Lactulose 30 gm PO HS 10/14/17 Metoprolol Tartrate 50 mg PO TID 10/14/17 Multivitamin [Multiple Vitamins] 1 each PO DAILY 10/14/17 Nifedipine ER [Procardia XL -] 90 mg PO DAILY 10/14/17 Oxycodone HCl/Acetaminophen [Percocet 5-325 mg Tablet] 2 tab PO TID 10/14/17 Ranitidine HCl 150 mg PO DAILY 10/14/17 Whey/Arginine/C/E/Malic/Citric [Argitein Powder Packet] 1 each PO TID 10/14/17 Furosemide [Lasix -] 40 mg PO BID@0600,1400 #60 tablet 10/29/17 Metolazone [Zaroxolyn -] 5 mg PO DAILY PRN #14 tablet 10/29/17 Acetaminophen [Tylenol .Regular Strength -] 650 mg PO Q8H PRN tablet 11/14/17 Bisacodyl [Bisacodyl -] 5 mg PO HS tablet. 11/14/17 Insulin Sliding Scale [Novolog Vial Sliding Scale -] 1 vial SQ ACHS units 11/14 Piperacillin/Tazob 2.25 gm [Zosyn -] 2.25 gm IVPB Q8H-IV #1 vial 11/14/17
--- NOTE | 2017-11-14 13:55 | PN ---
Progress Note, Physician History of Present Illness: patient stable no new issues - Current Medication List Current Medications: Active Medications Acetaminophen (Tylenol -) 650 mg PO Q6H PRN PRN Reason: PAIN LEVEL 1-5 Last Admin: 11/13/17 13:01 Dose: 650 mg Acetaminophen (Tylenol -) 650 mg PO Q8H PRN PRN Reason: PAIN LEVEL 6-10 Allopurinol (Zyloprim -) 100 mg PO DAILY [facility] Last Admin: 11/14/17 10:47 Dose: 100 mg Atorvastatin Calcium (Lipitor -) 10 mg PO [facility] Last Admin: 11/13/17 22:31 Dose: 10 mg Bisacodyl (Dulcolax -) 5 mg PO HS [facility] Last Admin: 11/13/17 22:31 Dose: 5 mg Budesonide/Formoterol Fumarate (Symbicort 160/4.5mcg -) 1 puff IH BID [facility] Last Admin: 11/14/17 10:48 Dose: 1 puff Cholecalciferol (Vitamin D3 -) 1,000 unit PO DAILY [facility] Last Admin: 11/13/17 09:19 Dose: 1,000 unit Docusate Sodium (Colace -) 100 mg PO HS [facility] Last Admin: 11/13/17 22:31 Dose: 100 mg Folic Acid (Folic Acid -) 1 mg PO DAILY [facility] Last Admin: 11/14/17 10:48 Dose: 1 mg Furosemide (Lasix -) 40 mg PO BID@0600,1400 [facility] Last Admin: 11/14/17 06:11 Dose: 40 mg Gabapentin (Neurontin -) 100 mg PO TID [facility] Last Admin: 11/14/17 06:10 Dose: 100 mg Piperacillin Sod/Tazobactam (Sod 2.25 gm/ Dextrose) 50 mls @ 100 mls/hr IVPB Q8H-IV [facility]; Protocol Last Admin: 11/14/17 10:49 Dose: 100 mls/hr Insulin Aspart (Novolog Vial Sliding Scale -) 1 vial SQ [facility]; Protocol Last Admin: 11/14/17 06:02 Dose: Not Given Insulin Detemir (Levemir Vial) 33 units SQ HS [facility] Last Admin: 11/13/17 22:32 Dose: 33 units Ipratropium [place] (Atrovent 0.02% Nebulizer -) 1 amp NEB Q6H PRN PRN Reason: SHORT OF BREATH/WHEEZING Last Admin: 11/12/17 08:05 Dose: 1 amp Isosorbide Mononitrate (Imdur -) 60 mg PO DAILY [facility] Last Admin: 11/14/17 10:47 Dose: 60 mg Lactulose (Cephulac (Oral Use)) 30 gm PO HS [facility] Last Admin: 11/13/17 22:34 Dose: Not Given Levofloxacin (Levaquin) 250 mg PO DAILY [facility] Metolazone (Zaroxolyn -) 5 mg PO DAILY PRN PRN Reason: volume overload Metoprolol Tartrate (Lopressor -) 50 mg PO TID [facility] Last Admin: 11/14/17 06:10 Dose: Not Given Multivitamins/Minerals/Vitamin C (Tab-A-Vit -) 1 tab PO DAILY [facility] Last Admin: 11/14/17 10:47 Dose: 1 tab Nifedipine (Procardia Xl -) 90 mg PO DAILY [facility] Last Admin: 11/14/17 10:47 Dose: 90 mg Oxycodone HCl (Roxicodone -) 10 mg PO Q8H PRN PRN Reason: PAIN LEVEL 6-10 Last Admin: 11/13/17 17:59 Dose: 10 mg Polysaccharide Iron Complex (Niferex-150 -) 150 mg PO DAILY [facility] Last Admin: 11/14/17 10:47 Dose: 150 mg Ranitidine HCl (Zantac -) 150 mg PO DAILY [facility] Last Admin: 11/14/17 10:47 Dose: 150 mg - Objective Vital Signs: Vital Signs Temperature 98.6 F 11/14/17 10:00 Pulse Rate 60 11/14/17 10:00 Respiratory Rate 20 11/14/17 10:00 Blood Pressure 127/50 11/14/17 10:00 O2 Sat by Pulse Oximetry (%) 97 11/13/17 21:00 Constitutional: Yes: No Distress, Calm, Obese Cardiovascular: Yes: S1, S2 Respiratory: Yes: Regular, On Nasal O2, Poor Air Entry Gastrointestinal: Yes: Normal Bowel Sounds, Soft Musculoskeletal: Yes: WNL Extremities: Yes: WNL Neurological: Yes: Alert, Oriented Psychiatric: Yes: Alert, Oriented Labs: CBC, BMP 11/12/17 05:45 11/14/17 05:30 INR, PTT INR 3.08 (0.83-1.09) H* 11/14/17 05:30 Assessment/Plan Problem List - Problems (1) TIA (transient ischemic attack) Code(s): G45.9 - TRANSIENT CEREBRAL ISCHEMIC ATTACK, UNSPECIFIED (2) Weakness Code(s): R53.1 - WEAKNESS (3) Abdominal pain Code(s): R10.9 - UNSPECIFIED ABDOMINAL PAIN Qualifiers: Abdominal location: lower abdomen (4) Afib Code(s): I48.91 - UNSPECIFIED ATRIAL FIBRILLATION Qualifiers: Atrial fibrillation type: persistent Qualified Code(s): I48.1 - Persistent atrial fibrillation (5) Anemia Code(s): D64.9 - ANEMIA, UNSPECIFIED Qualifiers: Anemia type: unspecified type Qualified Code(s): D64.9 - Anemia, unspecified (6) CHF (congestive heart failure) Code(s): I50.9 - HEART FAILURE, UNSPECIFIED (7) CKD (chronic kidney disease) Code(s): N18.9 - CHRONIC KIDNEY DISEASE, UNSPECIFIED Qualifiers: Chronic kidney disease stage: unspecified stage Qualified Code(s): N18.9 - Chronic kidney disease, unspecified (8) Diabetes mellitus Code(s): E11.9 - TYPE 2 DIABETES MELLITUS WITHOUT COMPLICATIONS Qualifiers: Chronic kidney disease stage: unspecified stage (9) Obesity Code(s): E66.9 - OBESITY, UNSPECIFIED 10 uti r/o chances are that she could have uti plan all cx reports noted complete zosyn for 2 more days add levaquin 250 mg daily for 5 more days rest as per the team
--- NOTE | 2017-11-14 14:11 | PN ---
Progress Note, Physician History of Present Illness: Pt seen and examined at bedside. She is awake and alert. She is asking to go back to rehab. She denies shortness of breath. - Current Medication List Current Medications: Active Medications Acetaminophen (Tylenol -) 650 mg PO Q6H PRN PRN Reason: PAIN LEVEL 1-5 Last Admin: 11/13/17 13:01 Dose: 650 mg Acetaminophen (Tylenol -) 650 mg PO Q8H PRN PRN Reason: PAIN LEVEL 6-10 Allopurinol (Zyloprim -) 100 mg PO DAILY [facility] Last Admin: 11/14/17 10:47 Dose: 100 mg Atorvastatin Calcium (Lipitor -) 10 mg PO HS [facility] Last Admin: 11/13/17 22:31 Dose: 10 mg Bisacodyl (Dulcolax -) 5 mg PO HS [facility] Last Admin: 11/13/17 22:31 Dose: 5 mg Budesonide/Formoterol Fumarate (Symbicort 160/4.5mcg -) 1 puff IH BID [facility] Last Admin: 11/14/17 10:48 Dose: 1 puff Cholecalciferol (Vitamin D3 -) 1,000 unit PO DAILY [facility] Last Admin: 11/13/17 09:19 Dose: 1,000 unit Docusate Sodium (Colace -) 100 mg PO HS [facility] Last Admin: 11/13/17 22:31 Dose: 100 mg Folic Acid (Folic Acid -) 1 mg PO DAILY [facility] Last Admin: 11/14/17 10:48 Dose: 1 mg Furosemide (Lasix -) 40 mg PO BID@0600,1400 [facility] Last Admin: 11/14/17 06:11 Dose: 40 mg Gabapentin (Neurontin -) 100 mg PO TID [facility] Last Admin: 11/14/17 06:10 Dose: 100 mg Piperacillin Sod/Tazobactam (Sod 2.25 gm/ Dextrose) 50 mls @ 100 mls/hr IVPB Q8H-IV [facility]; Protocol Last Admin: 11/14/17 10:49 Dose: 100 mls/hr Insulin Aspart (Novolog Vial Sliding Scale -) 1 vial SQ ACHS [facility]; Protocol Last Admin: 11/14/17 06:02 Dose: Not Given Insulin Detemir (Levemir Vial) 33 units SQ HS [facility] Last Admin: 11/13/17 22:32 Dose: 33 units Ipratropium [place] (Atrovent 0.02% Nebulizer -) 1 amp NEB Q6H PRN PRN Reason: SHORT OF BREATH/WHEEZING Last Admin: 11/12/17 08:05 Dose: 1 amp Isosorbide Mononitrate (Imdur -) 60 mg PO DAILY [facility] Last Admin: 11/14/17 10:47 Dose: 60 mg Lactulose (Cephulac (Oral Use)) 30 gm PO HS [facility] Last Admin: 11/13/17 22:34 Dose: Not Given Levofloxacin (Levaquin -) 250 mg PO DAILY@0600 [facility] Metolazone (Zaroxolyn -) 5 mg PO DAILY PRN PRN Reason: volume overload Metoprolol Tartrate (Lopressor -) 50 mg PO TID [facility] Last Admin: 11/14/17 06:10 Dose: Not Given Multivitamins/Minerals/Vitamin C (Tab-A-Vit -) 1 tab PO DAILY [facility] Last Admin: 11/14/17 10:47 Dose: 1 tab Nifedipine (Procardia Xl -) 90 mg PO DAILY [facility] Last Admin: 11/14/17 10:47 Dose: 90 mg Oxycodone HCl (Roxicodone -) 10 mg PO Q8H PRN PRN Reason: PAIN LEVEL 6-10 Last Admin: 11/13/17 17:59 Dose: 10 mg Polysaccharide Iron Complex (Niferex-150 -) 150 mg PO DAILY [facility] Last Admin: 11/14/17 10:47 Dose: 150 mg Ranitidine HCl (Zantac -) 150 mg PO DAILY [facility] Last Admin: 11/14/17 10:47 Dose: 150 mg - Objective Vital Signs: Vital Signs Temperature 98.6 F 11/14/17 10:00 Pulse Rate 60 11/14/17 10:00 Respiratory Rate 20 11/14/17 10:00 Blood Pressure 127/50 11/14/17 10:00 O2 Sat by Pulse Oximetry (%) 97 11/13/17 21:00 Constitutional: Yes: Calm Eyes: Yes: Conjunctiva Clear HENT: Yes: Atraumatic Neck: Yes: Supple Cardiovascular: Yes: S1, S2 Respiratory: Yes: CTA Bilaterally, On Nasal O2 Gastrointestinal: Yes: Soft, Abdomen, Obese Genitourinary: Yes: Incontinence Musculoskeletal: Yes: Other (obese) Edema: Yes Edema: LLE: 1+, RLE: 1+ Neurological: Yes: Oriented Psychiatric: Yes: Oriented Labs: CBC, BMP 11/12/17 05:45 11/14/17 05:30 INR, PTT INR 3.08 (0.83-1.09) H* 11/14/17 05:30 Problem List - Problems (1) TIA (transient ischemic attack) Code(s): G45.9 - TRANSIENT CEREBRAL ISCHEMIC ATTACK, UNSPECIFIED (2) Weakness Code(s): R53.1 - WEAKNESS (3) Abdominal pain Code(s): R10.9 - UNSPECIFIED ABDOMINAL PAIN Qualifiers: Abdominal location: lower abdomen (4) Afib Code(s): I48.91 - UNSPECIFIED ATRIAL FIBRILLATION Qualifiers: Atrial fibrillation type: persistent Qualified Code(s): I48.1 - Persistent atrial fibrillation (5) Anemia Code(s): D64.9 - ANEMIA, UNSPECIFIED Qualifiers: Anemia type: unspecified type Qualified Code(s): D64.9 - Anemia, unspecified (6) CHF (congestive heart failure) Code(s): I50.9 - HEART FAILURE, UNSPECIFIED (7) CKD (chronic kidney disease) Code(s): N18.9 - CHRONIC KIDNEY DISEASE, UNSPECIFIED Qualifiers: Chronic kidney disease stage: unspecified stage Qualified Code(s): N18.9 - Chronic kidney disease, unspecified (8) Diabetes mellitus Code(s): E11.9 - TYPE 2 DIABETES MELLITUS WITHOUT COMPLICATIONS Qualifiers: Chronic kidney disease stage: unspecified stage (9) Obesity Code(s): E66.9 - OBESITY, UNSPECIFIED Assessment/Plan Current Medications Generic Name Dose Route Start Last Admin Trade Name Freq PRN Reason Stop Dose Admin Acetaminophen 650 mg 11/11/17 11:35 11/13/17 13:01 Tylenol - PO 650 mg Q6H PRN Administration PAIN LEVEL 1-5 Acetaminophen 650 mg 11/11/17 16:43 Tylenol - PO Q8H PRN PAIN LEVEL 6-10 Allopurinol 100 mg 11/12/17 10:00 11/14/17 10:47 Zyloprim - PO 100 mg DAILY [facility] Administration Atorvastatin Calcium 10 mg 11/11/17 22:00 11/13/17 22:31 Lipitor - PO 10 mg HS [facility] Administration Bisacodyl 5 mg 11/11/17 22:00 11/13/17 22:31 Dulcolax - PO 5 mg HS [facility] Administration Budesonide/Formoterol Fumarate 1 puff 11/11/17 22:00 11/14/17 10:48 Symbicort 160/4.5mcg - IH 1 puff BID [facility] Administration Cholecalciferol 1,000 unit 11/12/17 10:00 11/13/17 09:19 Vitamin D3 - PO 1,000 unit DAILY [facility] Administration Docusate Sodium 100 mg 11/11/17 22:00 11/13/17 22:31 Colace - PO 100 mg HS [facility] Administration Folic Acid 1 mg 11/12/17 10:00 11/14/17 10:48 Folic Acid - PO 1 mg DAILY [facility] Administration Furosemide 40 mg 11/11/17 14:00 11/14/17 06:11 Lasix - PO 40 mg BID@0600,1400 [facility] Administration Gabapentin 100 mg 11/11/17 14:00 11/14/17 06:10 Neurontin - PO 100 mg TID [facility] Administration Piperacillin Sod/Tazobactam 50 mls @ 100 mls/hr 11/11/17 18:00 11/14/17 10:49 Sod 2.25 gm/ Dextrose IVPB 100 mls/hr Q8H-IV [facility] Administration Protocol Insulin Aspart 1 vial 11/11/17 16:30 11/14/17 06:02 Novolog Vial Sliding Scale - SQ Not Given ACHS [facility] Protocol Insulin Detemir 33 units 11/11/17 22:00 11/13/17 22:32 Levemir Vial SQ 33 units HS [facility] Administration Ipratropium [place] 1 amp 11/11/17 11:28 11/12/17 08:05 Atrovent 0.02% Nebulizer - NEB 1 amp Q6H PRN Administration SHORT OF BREATH/WHEEZING Isosorbide Mononitrate 60 mg 11/12/17 10:00 11/14/17 10:47 Imdur - PO 60 mg DAILY [facility] Administration Lactulose 30 gm 11/11/17 22:00 11/13/17 22:34 Cephulac (Oral Use) PO Not Given HS [facility] Levofloxacin 250 mg 11/14/17 14:30 Levaquin - PO DAILY@0600 [facility] Metolazone 5 mg 11/11/17 11:28 Zaroxolyn - PO DAILY PRN volume overload Metoprolol Tartrate 50 mg 11/11/17 14:00 11/14/17 06:10 Lopressor - PO Not Given TID [facility] Multivitamins/Minerals/Vitamin C 1 tab 11/12/17 10:00 11/14/17 10:47 Tab-A-Vit - PO 1 tab DAILY [facility] Administration Nifedipine 90 mg 11/12/17 10:00 11/14/17 10:47 Procardia Xl - PO 90 mg DAILY [facility] Administration Oxycodone HCl 10 mg 11/11/17 16:42 11/13/17 17:59 Roxicodone - PO 10 mg Q8H PRN Administration PAIN LEVEL 6-10 Polysaccharide Iron Complex 150 mg 11/12/17 10:00 11/14/17 10:47 Niferex-150 - PO 150 mg DAILY [facility] Administration Ranitidine HCl 150 mg 11/12/17 10:00 11/14/17 10:47 Zantac - PO 150 mg DAILY [facility] Administration Impression 1. CKD 2. obesity 3. hyperlipidemia 4. HTN 5. DM 6. CHF 7. CAD 8. anemia 9. a-fib 10. iron deficiency 11. r/o TIA 12. hyperkalemia Plan - potassium is improved - renal diet - will need to monitor potassium and renal function in [place] - again discussed importance of AV fistula, she is refusing - renal function has been steadily declining - pt to follow with Dr Xiao as outpt - cont lasix on discharge as it will help with volume status Dr Capps
[2017-11-14] MEDS: CHOLECALCIFEROL (VITAMIN D3) 1,000 UNIT TABLET (FP) PO SCH (14:16)
[2017-11-14 15:17] VITALS: BMI 60.1
[2017-11-14] MEDS: oxyCODONE HCL 5 MG TABLET PO PRN (15:30)
[2017-11-14 16:40] VITALS: BP 146/50; PULSE 58; TEMP 98
== END 2017-11-14 20:03 | DRG 689 ==
LOC: JER 04:52 → JERBED 07:17 → J4S 15:00
PROVIDERS: ADMIT Internal Medicine; ATTEND Internal Medicine
DX: N39.0 Urinary tract infection, site not specified (principal); R53.2 Functional quadriplegia; J18.9 Pneumonia, unspecified organism; G93.41 Metabolic encephalopathy; Z68.44 Body mass index [BMI] 60.0-69.9, adult; G45.9 Transient cerebral ischemic attack, unspecified; I48.1 Persistent atrial fibrillation; N17.9 Acute kidney failure, unspecified; I13.0 Hypertensive heart and chronic kidney disease with heart failure and stage 1 through stage 4 chronic kidney disease, or unspecified chronic kidney disease; I50.32 Chronic diastolic (congestive) heart failure; E11.22 Type 2 diabetes mellitus with diabetic chronic kidney disease; N18.9 Chronic kidney disease, unspecified; B95.2 Enterococcus as the cause of diseases classified elsewhere; J44.9 Chronic obstructive pulmonary disease, unspecified; K21.9 Gastro-esophageal reflux disease without esophagitis; E78.5 Hyperlipidemia, unspecified; M10.9 Gout, unspecified; D64.9 Anemia, unspecified; I25.118 Atherosclerotic heart disease of native coronary artery with other forms of angina pectoris; M19.90 Unspecified osteoarthritis, unspecified site; E66.01 Morbid (severe) obesity due to excess calories; K59.00 Constipation, unspecified; R79.1 Abnormal coagulation profile; E11.8 Type 2 diabetes mellitus with unspecified complications; E87.5 Hyperkalemia; D72.828 Other elevated white blood cell count; G47.33 Obstructive sleep apnea (adult) (pediatric); F32.9 Major depressive disorder, single episode, unspecified; Z79.01 Long term (current) use of anticoagulants; Z79.4 Long term (current) use of insulin
CPT/HCPCS: 36415; 70450-TC; 71045-TC-FY; 80048; 80053; 80061; 81003; 81015; 82465; 82550; 82962; 83036; 83718; 83721; 83735; 84478; 84484; 85025; 85610; 86850; 86900; 86901; 87086; 87186; 93005; 93010; 93306-TC; 93880-TC; 94640; 99285-25; J7030

== ENCOUNTER 2017-12-07 11:34 | Inpatient (IN) | payer OTHER ==
--- NOTE | 2017-12-07 12:43 | PDOC ---
History of Present Illness - General Chief Complaint: Pain, Acute Stated Complaint: SENT BY PCP Time Seen by Provider: 12/07/17 12:18 History Source: Patient Exam Limitations: No Limitations - History of Present Illness Initial Comments: 12/07/17 12:40 72-year-old female sent from [facility] for blood transfusion secondary to low H&H. Patient is pending AV fistula placement by Dr. Escamilla but requires transfusion prior to procedure. Patient has no complaints of dyspnea, chest pain or shortness of breath. Patient history of asthma, anemia, atrial fibrillation COPD, CHF, diabetes, GERD , hypertension, or dyslipidemia. Associated Symptoms: reports: denies symptoms Past History - Travel Traveled outside of the country in the last 30 days: No - Past Medical History Allergies/Adverse Reactions: Allergies Allergy/AdvReac Type Severity Reaction Status Date / Time No Known Allergies Allergy Verified 10/14/17 17:13 Home Medications: Ambulatory Orders Allopurinol [Zyloprim -] 100 mg PO DAILY 10/14/17 Ascorbic Acid [C-500] 500 mg PO DAILY 10/14/17 Atorvastatin Calcium 10 mg PO HS 10/14/17 Bisacodyl [Gentle Laxative] 5 mg PO HS 10/14/17 Budesonide/Formeterol Fumarate [SYMBICORT 160/4.5mcg -] 1 inh PO BID 10/14/17 Carvedilol 25 mg PO DAILY 10/14/17 Cholecalciferol (Vitamin D3) [Vitamin D3] 1,000 unit PO DAILY 10/14/17 Docusate Sodium [Colace] 100 mg PO HS 10/14/17 Folic Acid 1 mg PO DAILY 10/14/17 Gabapentin [Neurontin -] 100 mg PO Q8H 10/14/17 Insulin Detemir [Levemir Flextouch] 33 unit SQ HS 10/14/17 Ipratropium [place] 0.2 mg IH Q6H PRN 10/14/17 Iron Polysaccharide Complex [Ferrex 150] 150 mg PO DAILY 10/14/17 Isosorbide Mononitrate 60 mg PO DAILY 10/14/17 Lactulose 30 gm PO HS 10/14/17 Metoprolol Tartrate 50 mg PO TID 10/14/17 Multivitamin [Multiple Vitamins] 1 each PO DAILY 10/14/17 Nifedipine ER [Procardia XL -] 90 mg PO DAILY 10/14/17 Oxycodone HCl/Acetaminophen [Percocet 5-325 mg Tablet] 2 tab PO TID 10/14/17 Ranitidine HCl 150 mg PO DAILY 10/14/17 Whey/Arginine/C/E/Malic/Citric [Argitein Powder Packet] 1 each PO TID 10/14/17 Furosemide [Lasix -] 40 mg PO BID@0600,1400 #60 tablet 10/29/17 Metolazone [Zaroxolyn -] 5 mg PO DAILY PRN #14 tablet 10/29/17 Acetaminophen [Tylenol .Regular Strength -] 650 mg PO Q8H PRN tablet 11/14/17 Bisacodyl [Bisacodyl -] 5 mg PO HS tablet. 11/14/17 Insulin Sliding Scale [Novolog Vial Sliding Scale -] 1 vial SQ ACHS units 11/14 Piperacillin/Tazob 2.25 gm [Zosyn -] 2.25 gm IVPB Q8H-IV #1 vial 11/14/17 Anemia: Yes Asthma: Yes Cancer: No Cardiac Disorders: Yes (atrial fibrilation) CVA: No COPD: Yes CHF: Yes Dementia: No Diabetes: Yes GI Disorders: Yes (GERD) Disorders: Yes (UTI) HTN: Yes Hypercholesterolemia: Yes Liver Disease: No Seizures: No Thyroid Disease: No - Surgical History Abdominal Surgery: No Appendectomy: No Cardiac Surgery: No Cholecystectomy: No Lung Surgery: No Neurologic Surgery: No Orthopedic Surgery: Yes (L. Ankle sx, L.leg) - Immunization History Immunization Up to Date: Yes - Suicide/Smoking/Psychosocial Hx Smoking Status: No Smoking History: Never smoked Have you smoked in the past 12 months: No Number of Cigarettes Smoked Daily: 0 Hx Alcohol Use: No Drug/Substance Use Hx: No Substance Use Type: None Hx Substance Use Treatment: No Patient Lives Alone: No Lives with/in: [facility] Review of Systems - Review of Systems Able to Perform ROS?: No Constitutional: No: Symptoms Reported HEENTM: No: Symptoms Reported Respiratory: No: Symptoms reported Cardiac (ROS): No: Symptoms Reported ABD/GI: No: Symptoms Reported Musculoskeletal: No: Symptoms Reported Integumentary: No: Symptoms Reported Neurological: No: Symptoms reported Endocrine: No: Symptoms Reported Hematologic/Lymphatic: No: Symptoms Reported *Physical Exam - Vital Signs Last Vital Signs Temp Pulse Resp BP Pulse Ox 97.7 F 61 20 140/65 100 12/07/17 11:49 12/07/17 11:49 12/07/17 11:49 12/07/17 11:49 12/07/17 11:49 - Physical Exam General Appearance: Yes: Nourished, Appropriately Dressed. No: Apparent Distress HEENT: positive: Pale Conjunctivae Respiratory/Chest: positive: Lungs Clear, Normal Breath Sounds. negative: Respiratory Distress, Accessory Muscle Use Cardiovascular: positive: Regular Rhythm, Regular Rate. negative: Murmur Gastrointestinal/Abdominal: positive: Soft. negative: Tenderness Extremity: positive: Normal Capillary Refill Integumentary: positive: Dry, Warm, Pale Neurologic: positive: Normal Mood/Affect ED Treatment Course - LABORATORY CBC & Chemistry Diagram: 12/07/17 13:45 12/07/17 13:45 Medical Decision Making - Medical Decision Making 12/07/17 13:03 Patient sent here for admission for transfusion of low hemoglobin and hematocrit and AV fistula placement. Case discussed with Dr. Lee nursing and [facility]. Consult placed for Dr. Escamilla. Patient is currently asymptomatic. 12/07/17 14:01 Laboratory Tests 12/07/17 13:45 WBC 11.0 H RBC 2.40 L Hgb 6.5 L* Hct 20.9 L D MCHC 31.0 L RDW 18.1 H Patient be ordered for 1 unit of PRBC. *DC/Admit/Observation/Transfer Diagnosis at time of Disposition: Anemia requiring transfusions, Encounter regarding vascular access for dialysis for end-stage renal disease - Discharge Dispostion Decision to Admit order: Yes - Referrals Referrals: Diana Whitmore MD [Primary Care Provider] - - Patient Instructions - Post Discharge Activity
--- NOTE | 2017-12-07 12:56 | PDOC ---
*Physical Exam - Vital Signs Last Vital Signs Temp Pulse Resp BP Pulse Ox 97.7 F 61 20 140/65 100 12/07/17 11:49 12/07/17 11:49 12/07/17 11:49 12/07/17 11:49 12/07/17 11:49 - Physical Exam Comments: 12/07/17 12:55 The patient was examined by [TYRA Connor] under my direct supervision. I personally evaluated the patient. I concur with the above findings and the plan of care. ED Treatment Course - LABORATORY CBC & Chemistry Diagram: 12/14/17 07:20 12/14/17 07:20 *DC/Admit/Observation/Transfer Diagnosis at time of Disposition: Anemia requiring transfusions, Encounter regarding vascular access for dialysis for end-stage renal disease - Referrals - Patient Instructions - Post Discharge Activity
[2017-12-07 13:51] LABS: EOS % 2.1 % (0-4.5); HEMATOCRIT 20.9 % (32.4-45.2); LYMPH % 16.1 % (8-40); MEAN CELL VOLUME 87.1 fl (80-96); MONO % 5.9 % (3.8-10.2); NEUT % 74.9 % (42.8-82.8); PLATELET COUNT 160 K/MM3 (134-434); RDW 18.1 % (11.6-15.6)
[2017-12-07 13:57] LABS: HEMOGLOBIN 6.5 GM/dL (10.7-15.3)
[2017-12-07 14:30] LABS: ALBUMIN 2.9 g/dl (3.4-5.0); ALK PHOS 46 U/L (45-117); ANION GAP 8 MMOL/L (8-16); BILIRUBIN,TOTAL 0.2 mg/dL (0.2-1.0); CALCIUM 7.7 mg/dL (8.5-10.1); CHLORIDE 108 mmol/L (98-107); CO2 29 mmol/L (21-32); CREATININE 4.1 mg/dL (0.55-1.02); GLUCOSE,RANDOM 211 mg/dL (74-106); SGPT/ALT 16 U/L (12-78); SODIUM 145 mmol/L (136-145); TOT PROT 6.4 g/dl (6.4-8.2)
[2017-12-07 14:41] LABS: POTASSIUM 5.4 mmol/L (3.5-5.1)
[2017-12-07 14:42] LABS: BLOOD UREA NITROGEN 175 mg/dL (7-18); SGOT/AST 24 U/L (15-37)
[2017-12-07 15:55] LABS: INR 3.97 (0.83-1.09); PROTHROMBIN TIME (PATIENT) 44.9 SEC (9.7-13.0)
[2017-12-07] MEDS ORDERED: GABAPENTIN 100 MG CAPSULE (FP) ONE (22:59)
[2017-12-07] MEDS ORDERED: ACETAMINOPHEN 325 MG TABLET (FP) ONE (22:59)
[2017-12-07] MEDS ORDERED: ACETAMINOPHEN 325 MG TABLET (FP) PO PRN (23:02)
[2017-12-07] MEDS: ACETAMINOPHEN 325 MG TABLET (FP) PO PRN (23:10)
[2017-12-07] MEDS: GABAPENTIN 100 MG CAPSULE (FP) PO SCH (23:15)
[2017-12-08] MEDS: oxyCODONE HCL 5 MG TABLET PO PRN ×2 (06:22→15:36)
[2017-12-08] MEDS: FUROSEMIDE 40 MG TABLET (FP) PO SCH ×2 (06:22→14:35)
[2017-12-08] MEDS: GABAPENTIN 100 MG CAPSULE (FP) PO SCH ×3 (06:22→21:39)
[2017-12-08] MEDS: METOPROLOL TARTRATE 50 MG TABLET (FP) PO SCH ×3 (06:23→21:39)
[2017-12-08] MEDS: INSULIN (NOVOLOG) ASPART 100 UNITS/ML 10ML VIAL SQ SCH ×3 (07:11→18:13)
[2017-12-08 07:13] LABS: BASO % 0.3 % (0-2.0); EOS % 1.7 % (0-4.5); HEMATOCRIT 19.7 % (32.4-45.2); LYMPH % 18.3 % (8-40); MCH 27.2 pg (25.7-33.7); MCHC 31.6 g/dl (32.0-36.0); MEAN CELL VOLUME 85.9 fl (80-96); MEAN PLT VOLUME 8.5 fl (7.5-11.1); MONO % 6.2 % (3.8-10.2); NEUT % 73.5 % (42.8-82.8); PLATELET COUNT 131 K/MM3 (134-434); RDW 18.3 % (11.6-15.6); WHITE BLOOD COUNT 9.7 K/mm3 (4.0-10.0)
[2017-12-08 07:24] LABS: INR 3.9 (0.83-1.09); PROTHROMBIN TIME (PATIENT) 44.1 SEC (9.7-13.0)
[2017-12-08] MEDS ORDERED: INSULIN (NOVOLOG) ASPART 100 UNITS/ML 10ML VIAL ONE ×2 (08:04→21:05)
[2017-12-08 08:07] LABS: HEMOGLOBIN 6.2 GM/dL (10.7-15.3)
[2017-12-08 08:24] LABS: CHLORIDE 110 mmol/L (98-107); POTASSIUM 5.1 mmol/L (3.5-5.1); SODIUM 149 mmol/L (136-145)
[2017-12-08 08:57] LABS: ALBUMIN 2.7 g/dl (3.4-5.0); ALK PHOS 43 U/L (45-117); ANION GAP 8 MMOL/L (8-16); BILIRUBIN,TOTAL 0.2 mg/dL (0.2-1.0); CALCIUM 7.9 mg/dL (8.5-10.1); CO2 31 mmol/L (21-32); CREATININE 4.1 mg/dL (0.55-1.02); GLUCOSE,RANDOM 172 mg/dL (74-106); SGOT/AST 10 U/L (15-37); SGPT/ALT 12 U/L (12-78); TOT PROT 5.6 g/dl (6.4-8.2)
--- NOTE | 2017-12-08 08:57 | PN ---
Progress Note (short form) - Note Progress Note: Vascular Surgery: Pt seen and evaluated in wound clinic earlier this week on 12/05/[address] Escamilla for lower ext edema and possible fistula creation. A vascular duplex of her extremities was completed to evaluate the vessels for possible fistula formation. She was admitted to the hospital for anemia and transfusion prior to her surgery. The patient is also on coumadin. She denies any SOB/CP. Last night she received 1 unit of PRBC. No gross blood per rectum/bloody emesis, abd pain. Vital Signs Period Temp Pulse Resp BP Sys/Contreras Pulse Ox Last 24 Hr 97.5 F-98.3 F 61-88 18-21 127-141/52-81 97-100 GEN: A&0x3, NAD CV: RRR Lungs: CTA b/l anterioly ABD: soft, non-distended, nontender LE: RLE with pitting edema greater than the left. No ulcerations to her extremities. Heel protectors in place. 5/5 dorsi/pantar flexion. CBC, BMP 12/08/17 06:00 12/08/17 06:00 Laboratory Tests 12/08/17 12/08/17 06:00 06:00 WBC 9.7 Hgb 6.2 L* Hct 19.7 L Plt Count 131 L PT with INR 44.10 H INR 3.90 H A/P: 72 yo female with a h/o asthma, anemia, atrial fibrillation COPD, CHF, diabetes, GERD, hypertension, or dyslipidemia Plan for hemodialysis access after the patient is cleared medically and stable Transfuse as needed prior to surgery Hold coumadin and monitor INR, Iv hpearin if needed prior surgery as per the medical team D/w Dr. Escamilla, duplex study taken to evaluate for fistula placement
[2017-12-08] MEDS ORDERED: SPIRONOLACTONE 25 MG TABLET (FP) PO SCH (10:00)
[2017-12-08] MEDS ORDERED: TORSEMIDE 20 MG TABLET (FP) PO SCH (10:00)
[2017-12-08 10:02] LABS: BLOOD UREA NITROGEN 181 mg/dL (7-18)
[2017-12-08] MEDS: BUDESONIDE/FORMETEROL FUMARATE 160/4.5 mcg INHALER IH SCH ×2 (10:49→22:12)
[2017-12-08] MEDS: SILVER SULFADIAZINE 1% TOP CREAM 50 GM JAR TP SCH ×2 (10:50→22:13)
[2017-12-08] MEDS: RANITIDINE HCL 150 MG TABLET (FP) PO SCH (10:50)
[2017-12-08] MEDS: MULTIVITAMINS (DAILY MVI) TABLET (FP) PO SCH (10:50)
[2017-12-08] MEDS: CARVEDILOL 25 MG TABLET (FP) PO SCH (10:51)
[2017-12-08] MEDS: FOLIC ACID 1 MG TABLET (FP) PO SCH (10:51)
[2017-12-08] MEDS: ISOSORBIDE MONONITRATE 60 MG TAB.SR.24H (FP) PO SCH (10:52)
[2017-12-08] MEDS: IRON POLYSACCHARIDES 150 MG CAPSULE PO SCH (10:52)
[2017-12-08] MEDS: CHOLECALCIFEROL (VITAMIN D3) 1,000 UNIT TABLET (FP) PO SCH (10:52)
[2017-12-08] MEDS: NIFEdipine E.R. 90 MG TABLET (FP) PO SCH (10:53)
[2017-12-08] MEDS: METOLAZONE 5 MG TABLET PO SCH (10:59)
--- NOTE | 2017-12-08 11:12 | HP ---
Admitting History and Physical - Primary Care Physician PCP: Diana Whitmore - Admission Chief Complaint: send from [facility]--- for AV fistula placement as well as for blood transfusion History of Present Illness: patient well known to me from previous admissions Extensive past medical history--as documented Here for transfusion and fistula placement--- patient is agreeing now End-stage renal failure Patient seen / examined Morbidly obese comfortable emergency room records reviewed - Past Medical History Cardiovascular: Yes: AFIB (anticoagulants for 5 yrs , on coumadin), CHF, HTN, Hyperlipdemia. No: CAD Pulmonary: Yes: Asthma, COPD Gastrointestinal: Yes: Constipation, GERD, Other (does not remember about colonscopy ) Renal/: Yes: Renal Inusuff, UTI (h/o recurrent uti) ...: No Heme/Onc: Yes: Anemia (history of chronic anemia, on intermittent transfusions and also on Procrit at [facility]), Other. No: B12 Deficiency, Bleeding Disorder, Cancer, Current Chemotherapy, Current Radiation Therapy, Hemochromatosis, Hypercoaguable State, Myeloproliferative Synd, Sickle Cell Disease, Sickle Cell Trait, Thrombocytopenia Psych: Yes: Depression (because son at age 38 yrs by sucide ) Musculoskeletal: Yes: Osteoarthritis Endocrine: Yes: Diabetes Mellitus (IDDM since age 40 yrs ), Other (morbid obesity ) Additional Past Medical History: Morbidly obese - Past Surgical History Past Surgical History: Yes: (40 years ago per patient), Tubal Ligation - Smoking History Smoking history: Never smoked Have you smoked in the past 12 months: No Aproximately how many cigarettes per day: 0 - Alcohol/Substance Use Hx Alcohol Use: No History of Substance Use: reports: None - Social History ADL: Support Services History of Recent Travel: No Home Medications - Allergies Allergies/Adverse Reactions: Allergies Allergy/AdvReac Type Severity Reaction Status Date / Time No Known Allergies Allergy Verified 10/14/17 17:13 - Home Medications Home Medications: Ambulatory Orders Allopurinol [Zyloprim -] 100 mg PO DAILY 10/14/17 Ascorbic Acid [C-500] 500 mg PO DAILY 10/14/17 Atorvastatin Calcium 10 mg PO HS 10/14/17 Carvedilol 25 mg PO DAILY 10/14/17 Cholecalciferol (Vitamin D3) [Vitamin D3] 1,000 unit PO DAILY 10/14/17 Docusate Sodium [Colace] 100 mg PO HS 10/14/17 Folic Acid 1 mg PO DAILY 10/14/17 Gabapentin [Neurontin -] 100 mg PO Q8H 10/14/17 Insulin Detemir [Levemir Flextouch] 33 unit SQ HS 10/14/17 Isosorbide Mononitrate 60 mg PO DAILY 10/14/17 Lactulose 30 gm PO HS 10/14/17 Metoprolol Tartrate 50 mg PO TID 10/14/17 Multivitamin [Multiple Vitamins] 1 each PO DAILY 10/14/17 Nifedipine ER [Procardia XL -] 90 mg PO DAILY 10/14/17 Ranitidine HCl 150 mg PO DAILY 10/14/17 Furosemide [Lasix -] 40 mg PO BID@0600,1400 #60 tablet 10/29/17 Bisacodyl [Bisacodyl -] 5 mg PO HS tablet. 11/14/17 Budesonide/Formeterol Fumarate [SYMBICORT 160/4.5mcg -] 1 inh PO DAILY 12/07/17 Epoetin [place] [Procrit] 10,000 unit IJ MOWEFR 12/07/17 Insulin Aspart [Novolog] 5 unit SQ TIDCM 12/07/17 Iron Polysaccharide Complex [Ferrex 150] 150 mg PO DAILY 12/07/17 Magnesium Hydrox 2400MG/30Ml [Milk of Magnesia -] 30 ml PO Q12H PRN 12/07/17 Metolazone [Zaroxolyn -] 2 tab PO DAILY 12/07/17 Oxycodone HCl/Acetaminophen [Percocet 5-325 mg Tablet] 2 tab PO TID 12/07/17 Silver Sulfadiazine 1% Top Cr [Silvadene -] 1 applic TP BID 12/07/17 Spironolactone 25 mg PO DAILY 12/07/17 Torsemide 20 mg PO DAILY 12/07/17 Warfarin Sodium [Coumadin] 4 mg PO HS 12/07/17 Family Disease History - Family Disease History Family Disease History: Diabetes: Father ( age 44, complications DM), Mother ( age 83), Daughter (Alive, ESRD), Heart Disease: Mother, Other: Son (, age 38 suicide), Daughter Review of Systems - Review of Systems Constitutional: reports: Lethargy, Loss of Appetite, Malaise Eyes: reports: No Symptoms Neck: reports: No Symptoms Gastrointestinal: reports: No Symptoms Neurological: reports: No Symptoms Psychiatric: reports: Anxiety Physical Examination Vital Signs: Vital Signs Temperature 98.1 F 12/08/17 09:58 Pulse Rate 66 12/08/17 09:58 Respiratory Rate 20 12/08/17 09:58 Blood Pressure 144/48 12/08/17 09:58 O2 Sat by Pulse Oximetry (%) 100 12/08/17 00:57 Eyes: Yes: Conjunctiva Clear Neck: Yes: Supple Cardiovascular: No: Regular Rate and Rhythm Respiratory: Yes: Diminished Gastrointestinal: Yes: Abdomen, Obese Edema: LLE: 1+, RLE: 1+ Neurological: Yes: Alert Psychiatric: Yes: Alert Labs: CBC, BMP 12/08/17 06:00 12/08/17 06:00 Imaging - Results EKG: Report Reviewed Problem List - Problems (1) Anemia requiring transfusions Code(s): D64.9 - ANEMIA, UNSPECIFIED (2) Encounter regarding vascular access for dialysis for end-stage renal disease Code(s): N18.6 - END STAGE RENAL DISEASE; Z99.2 - DEPENDENCE ON RENAL DIALYSIS (3) Afib Code(s): I48.91 - UNSPECIFIED ATRIAL FIBRILLATION Qualifiers: Atrial fibrillation type: persistent Qualified Code(s): I48.1 - Persistent atrial fibrillation (4) CKD (chronic kidney disease) stage 5, GFR less than 15 ml/min Code(s): N18.5 - CHRONIC KIDNEY DISEASE, STAGE 5 (5) Diabetes mellitus Code(s): E11.9 - TYPE 2 DIABETES MELLITUS WITHOUT COMPLICATIONS Qualifiers: Chronic kidney disease stage: unspecified stage (6) Functional quadriplegia Code(s): R53.2 - FUNCTIONAL QUADRIPLEGIA (7) Morbid obesity Code(s): E66.01 - MORBID (SEVERE) OBESITY DUE TO EXCESS CALORIES Assessment/Plan transfuse Monitor CBC Vascular consulted already Continue other medications Hold Coumadin--supratherapeutic Meds reviewed orders as written Will follow Discussed about dialysis in detail with patient--- agree for same Renal also consulted.
[2017-12-08] MEDS ORDERED: FUROSEMIDE 40 MG/4 ML INJECTABLE VIAL IVPUSH ONE (11:14)
[2017-12-08] MEDS ORDERED: PT OWN MED DRAWER 7, Y5N ONE ×4 (11:44→22:09)
--- NOTE | 2017-12-08 11:54 | EKG ---
Test Reason : Blood Pressure : / mmHG Vent. Rate : 065 BPM Atrial Rate : 065 BPM P-R Int : 000 ms QRS Dur : 100 ms QT Int : 452 ms P-R-T Axes : 029 035 072 degrees QTc Int : 470 ms SINUS RHYTHM WITH A-V DISSOCIATION AND JUNCTIONAL RHYTHM ABNORMAL ECG WHEN COMPARED WITH ECG OF 11-NOV-2017 05:11, JUNCTIONAL RHYTHM HAS REPLACED ATRIAL FIBRILLATION Confirmed by ZEE VELASQUEZ, ELOISA ([id number]) on 12/08/2017 11:54:06 AM Referred By: Confirmed By:ELOISA KOCH MD
[2017-12-08] MEDS: EPOETIN ALFA 10,000 UNIT/1 ML VIAL SQ SCH (12:17)
[2017-12-08] MEDS: ACETAMINOPHEN 325 MG TABLET (FP) PO PRN ×2 (15:35→21:44)
--- NOTE | 2017-12-08 16:19 | CONSULT ---
Consult Consult Specialty:: Nephrology Reason for Consultation:: CKD - History of Present Illness Chief Complaint: sent in for anemia History of Present Illness: Pt is a 72 year old female with pmhx of CKD, HTN, anemia, morbid obesity, COPD, CHF and DM who was sent in for blood transfusion. Her renal function has been progressively worsening. She agrees to getting a fistula. She does get shortness of breath at times. She is bedridden. She denies dysuria or hematuria. She is awake and alert. - History Source History Provided By: Patient - Past Medical History Cardio/Vascular: Yes: AFIB (anticoagulants for 5 yrs , on coumadin), CHF, HTN, Hyperlipdemia Pulmonary: Yes: Asthma, COPD Gastrointestinal: Yes: Constipation, GERD, Other (does not remember about colonscopy ) Renal/: Yes: Renal Inusuff, UTI (h/o recurrent uti) ...: No Psych: Yes: Depression (because son at age 38 yrs by sucide ) Musculoskeletal: Yes: Osteoarthritis Endocrine: Yes: Diabetes Mellitus (IDDM since age 40 yrs ), Other (morbid obesity ) Additional Medical History: morbid obesity - Past Surgical History Past Surgical History: Yes: (40 years ago per patient), Tubal Ligation - Alcohol/Substance Use Hx Alcohol Use: No History of Substance Use: reports: None - Smoking History Smoking history: Never smoked Have you smoked in the past 12 months: No Aproximately how many cigarettes per day: 0 - Social History Usual Living Arrangement: Prison (for 2 yrs at [facility]) ADL: Support Services History of Recent Travel: No Home Medications - Allergies Allergies/Adverse Reactions: Allergies Allergy/AdvReac Type Severity Reaction Status Date / Time No Known Allergies Allergy Verified 10/14/17 17:13 - Home Medications Home Medications: Ambulatory Orders Allopurinol [Zyloprim -] 100 mg PO DAILY 10/14/17 Ascorbic Acid [C-500] 500 mg PO DAILY 10/14/17 Atorvastatin Calcium 10 mg PO HS 10/14/17 Carvedilol 25 mg PO DAILY 10/14/17 Cholecalciferol (Vitamin D3) [Vitamin D3] 1,000 unit PO DAILY 10/14/17 Docusate Sodium [Colace] 100 mg PO HS 10/14/17 Folic Acid 1 mg PO DAILY 10/14/17 Gabapentin [Neurontin -] 100 mg PO Q8H 10/14/17 Insulin Detemir [Levemir Flextouch] 33 unit SQ HS 10/14/17 Isosorbide Mononitrate 60 mg PO DAILY 10/14/17 Lactulose 30 gm PO HS 10/14/17 Metoprolol Tartrate 50 mg PO TID 10/14/17 Multivitamin [Multiple Vitamins] 1 each PO DAILY 10/14/17 Nifedipine ER [Procardia XL -] 90 mg PO DAILY 10/14/17 Ranitidine HCl 150 mg PO DAILY 10/14/17 Furosemide [Lasix -] 40 mg PO BID@0600,1400 #60 tablet 10/29/17 Bisacodyl [Bisacodyl -] 5 mg PO HS tablet. 11/14/17 Budesonide/Formeterol Fumarate [SYMBICORT 160/4.5mcg -] 1 inh PO DAILY 12/07/17 Epoetin [place] [Procrit] 10,000 unit IJ MOWEFR 12/07/17 Insulin Aspart [Novolog] 5 unit SQ TIDCM 12/07/17 Iron Polysaccharide Complex [Ferrex 150] 150 mg PO DAILY 12/07/17 Magnesium Hydrox 2400MG/30Ml [Milk of Magnesia -] 30 ml PO Q12H PRN 12/07/17 Metolazone [Zaroxolyn -] 2 tab PO DAILY 12/07/17 Oxycodone HCl/Acetaminophen [Percocet 5-325 mg Tablet] 2 tab PO TID 12/07/17 Silver Sulfadiazine 1% Top Cr [Silvadene -] 1 applic TP BID 12/07/17 Spironolactone 25 mg PO DAILY 12/07/17 Torsemide 20 mg PO DAILY 12/07/17 Warfarin Sodium [Coumadin] 4 mg PO HS 12/07/17 Family Disease History - Family Disease History Family Disease History: Diabetes: Father ( age 44, complications DM), Mother ( age 83), Daughter (Alive, ESRD), Heart Disease: Mother, Other: Son (, age 38 suicide), Daughter Review of Systems - Review of Systems Constitutional: reports: Malaise Eyes: reports: No Symptoms HENT: reports: No Symptoms Neck: reports: No Symptoms Cardiovascular: reports: No Symptoms Respiratory: reports: SOB on Exertion Gastrointestinal: reports: No Symptoms Genitourinary: reports: Incontinence Musculoskeletal: reports: No Symptoms Neurological: reports: No Symptoms Endocrine: reports: No Symptoms Hematology/Lymphatic: reports: No Symptoms Physical Exam Vital Signs: Vital Signs Temperature 97.4 F L 12/08/17 14:56 Pulse Rate 61 12/08/17 14:56 Respiratory Rate 20 12/08/17 09:58 Blood Pressure 144/64 12/08/17 14:56 O2 Sat by Pulse Oximetry (%) 100 12/08/17 00:57 Constitutional: Yes: Calm Eyes: Yes: Conjunctiva Clear HENT: Yes: Atraumatic Cardiovascular: Yes: S1, S2 Respiratory: Yes: CTA Bilaterally, On Nasal O2 Gastrointestinal: Yes: Soft, Abdomen, Obese Renal/: Yes: Incontinence Musculoskeletal: Yes: Muscle Weakness Edema: Yes Edema: LLE: 2+, RLE: 2+ Neurological: Yes: Oriented Psychiatric: Yes: Oriented Labs: CBC, BMP 12/08/17 06:00 12/08/17 06:00 Laboratory Tests 11/13/17 11/14/17 12/07/17 06:05 05:30 13:45 WBC Hgb 6.5 L* Plt Count INR Sodium Potassium BUN 105 H* Creatinine 3.8 H 3.8 H 12/07/17 12/08/17 12/08/17 13:45 06:00 06:00 WBC 9.7 Hgb 6.2 L* Plt Count 131 L INR 3.90 H Sodium 145 Potassium 5.4 H BUN 175 H* D Creatinine 4.1 H 12/08/17 06:00 WBC Hgb Plt Count INR Sodium 149 H Potassium 5.1 BUN 181 H* Creatinine 4.1 H Problem List - Problems (1) Anemia requiring transfusions Code(s): D64.9 - ANEMIA, UNSPECIFIED (2) Afib Code(s): I48.91 - UNSPECIFIED ATRIAL FIBRILLATION Qualifiers: Atrial fibrillation type: persistent Qualified Code(s): I48.1 - Persistent atrial fibrillation (3) Anemia Code(s): D64.9 - ANEMIA, UNSPECIFIED Qualifiers: Anemia type: unspecified type Qualified Code(s): D64.9 - Anemia, unspecified (4) CHF (congestive heart failure) Code(s): I50.9 - HEART FAILURE, UNSPECIFIED (5) CHF (congestive heart failure) Code(s): I50.9 - HEART FAILURE, UNSPECIFIED (6) CKD (chronic kidney disease) Code(s): N18.9 - CHRONIC KIDNEY DISEASE, UNSPECIFIED Qualifiers: Chronic kidney disease stage: unspecified stage Qualified Code(s): N18.9 - Chronic kidney disease, unspecified (7) CKD (chronic kidney disease) stage 5, GFR less than 15 ml/min Code(s): N18.5 - CHRONIC KIDNEY DISEASE, STAGE 5 Assessment/Plan Current Medications Generic Name Dose Route Start Last Admin Trade Name Freq PRN Reason Stop Dose Admin Acetaminophen 650 mg 12/07/17 22:39 12/07/17 23:10 Tylenol - PO 650 mg Q4H PRN Administration PAIN LEVEL 1-5 Acetaminophen 650 mg 12/08/17 05:12 12/08/17 15:35 Tylenol - PO 650 mg Q8H PRN Administration PAIN LEVEL 6-10 Atorvastatin Calcium 10 mg 12/08/17 22:00 Lipitor - PO HS BRYANT Bisacodyl 5 mg 12/08/17 22:00 Dulcolax - PO HS BRYANT Budesonide/Formoterol Fumarate 1 puff 12/08/17 10:00 12/08/17 10:49 Symbicort 160/4.5mcg - IH 1 puff BID BRYANT Administration Carvedilol 25 mg 12/08/17 10:00 12/08/17 10:51 Coreg - PO 25 mg DAILY BRYANT Administration Cholecalciferol 1,000 unit 12/08/17 10:00 12/08/17 10:52 Vitamin D3 - PO 1,000 unit DAILY BRYANT Administration Docusate Sodium 100 mg 12/08/17 22:00 Colace - PO HS BRYANT Epoetin [place] 10,000 unit 12/08/17 08:00 12/08/17 12:17 Procrit - SQ Not Given [id number] BRYANT Folic Acid 1 mg 12/08/17 10:00 12/08/17 10:51 Folic Acid - PO 1 mg DAILY BRYANT Administration Furosemide 40 mg 12/08/17 06:00 12/08/17 14:35 Lasix - PO Not Given BID@0600,1400 BRYANT Gabapentin 100 mg 12/07/17 22:45 12/08/17 15:03 Neurontin - PO 100 mg TID BRYANT Administration Insulin Aspart 5 units 12/08/17 07:00 12/08/17 12:17 Novolog Vial SQ 5 units TIDAC [facility] Administration Insulin Detemir 33 units 12/08/17 22:00 Levemir Vial SQ HS [facility] Isosorbide Mononitrate 60 mg 12/08/17 10:00 12/08/17 10:52 Imdur - PO 60 mg DAILY BRYANT Administration Lactulose 30 gm 12/08/17 22:00 Cephulac (Oral Use) PO HS [facility] Metolazone 5 mg 12/08/17 10:00 12/08/17 10:59 Zaroxolyn - PO 5 mg DAILY BRYANT Administration Metoprolol Tartrate 50 mg 12/08/17 06:00 12/08/17 15:03 Lopressor - PO 50 mg TID [facility] Administration Multivitamins/Minerals/Vitamin C 1 tab 12/08/17 10:00 12/08/17 10:50 Tab-A-Vit - PO 1 tab DAILY BRYANT Administration Nifedipine 90 mg 12/08/17 10:00 12/08/17 10:53 Procardia Xl - PO 90 mg DAILY BRYANT Administration Oxycodone HCl 10 mg 12/07/17 23:02 12/08/17 15:36 Roxicodone - PO 10 mg Q8H PRN Administration PAIN LEVEL 6-10 Polysaccharide Iron Complex 150 mg 12/08/17 10:00 12/08/17 10:52 Niferex-150 - PO 150 mg DAILY BRYANT Administration Ranitidine HCl 150 mg 12/08/17 10:00 12/08/17 10:50 Zantac - PO 150 mg DAILY BRYANT Administration Silver Sulfadiazine 1 applic 12/08/17 10:00 12/08/17 10:50 Silvadene - TP 1 applic BID BRYANT Administration Spironolactone 25 mg 12/08/17 10:00 12/08/17 10:51 Aldactone - PO 25 mg DAILY BRYANT Administration Impression 1. CKD 2. obesity 3. hyperlipidemia 4. HTN 5. DM 6. CHF 7. CAD 8. anemia 9. a-fib 10. iron deficiency 11. r/o TIA 12. hyperkalemia Plan - pt getting prbc - cont lasix - discussed HD at length with pt and she will think about starting sooner - monitor INR - stop spironolactone - monitor hg - will give epogen - recommend starting HD
[2017-12-08] MEDS: INSULIN (LEVEMIR) 100 UNITS/ML UNITS SQ SCH (21:38)
[2017-12-08] MEDS: BISACODYL 5 MG TABLET.DR (FP) PO SCH (21:39)
[2017-12-08] MEDS: DOCUSATE SODIUM 100 MG CAPSULE (FP) PO SCH (21:39)
[2017-12-08] MEDS: ATORVASTATIN CA 10 MG TABLET (FP) PO SCH (21:39)
[2017-12-08] MEDS: LACTULOSE 20 GM/30 ML UDC (FOR ORAL USE ONLY) PO SCH (21:40)
[2017-12-09] MEDS: oxyCODONE HCL 5 MG TABLET PO PRN ×2 (00:22→12:15)
[2017-12-09] MEDS: METOPROLOL TARTRATE 50 MG TABLET (FP) PO SCH ×3 (06:41→22:17)
[2017-12-09] MEDS: ACETAMINOPHEN 325 MG TABLET (FP) PO PRN (06:41)
[2017-12-09] MEDS: INSULIN (NOVOLOG) ASPART 100 UNITS/ML 10ML VIAL SQ SCH ×4 (06:41→18:48)
[2017-12-09] MEDS: FUROSEMIDE 40 MG TABLET (FP) PO SCH ×2 (06:41→14:32)
[2017-12-09] MEDS: GABAPENTIN 100 MG CAPSULE (FP) PO SCH ×3 (06:41→22:17)
[2017-12-09] MEDS ORDERED: INSULIN (LEVEMIR) 100 UNITS/ML UNITS SQ ONE ×2 (07:32→22:25)
[2017-12-09] MEDS ORDERED: PT OWN MED DRAWER 7, Y5N ONE ×3 (07:32→22:25)
[2017-12-09 07:54] LABS: PROTHROMBIN TIME (PATIENT) 49.5 SEC (9.7-13.0)
[2017-12-09 08:17] LABS: INR 4.38 (0.83-1.09)
[2017-12-09] MEDS: EPOETIN ALFA 10,000 UNIT/1 ML VIAL SQ SCH (08:27)
[2017-12-09] MEDS: NIFEdipine E.R. 90 MG TABLET (FP) PO SCH (10:42)
[2017-12-09] MEDS: RANITIDINE HCL 150 MG TABLET (FP) PO SCH (10:42)
[2017-12-09] MEDS: MULTIVITAMINS (DAILY MVI) TABLET (FP) PO SCH (10:42)
[2017-12-09] MEDS: METOLAZONE 5 MG TABLET PO SCH (10:42)
[2017-12-09] MEDS: IRON POLYSACCHARIDES 150 MG CAPSULE PO SCH (10:42)
[2017-12-09] MEDS: FOLIC ACID 1 MG TABLET (FP) PO SCH (10:42)
[2017-12-09] MEDS: CARVEDILOL 25 MG TABLET (FP) PO SCH (10:42)
[2017-12-09] MEDS: BUDESONIDE/FORMETEROL FUMARATE 160/4.5 mcg INHALER IH SCH ×2 (10:42→22:29)
[2017-12-09] MEDS: CHOLECALCIFEROL (VITAMIN D3) 1,000 UNIT TABLET (FP) PO SCH (10:42)
[2017-12-09] MEDS: ISOSORBIDE MONONITRATE 60 MG TAB.SR.24H (FP) PO SCH (10:42)
[2017-12-09] MEDS: SILVER SULFADIAZINE 1% TOP CREAM 50 GM JAR TP SCH ×2 (10:43→22:19)
--- NOTE | 2017-12-09 11:07 | PN ---
Progress Note (short form) - Note Progress Note: Patient seen and examined got 2 units of packed RBCs yesterday RN reports--dark-colored stool Patient otherwise comfortable--morbidly obese essentially bedbound RN also reports--has loose stools/stage II sacral decubitus--- urine--soils the decubitus Requesting--if we can put Melendez Vital Signs Temp 97.7 F 12/09/17 00:15 Pulse 62 12/09/17 00:15 Resp 17 12/09/17 00:15 BP 123/65 12/09/17 00:15 Pulse Ox 100 12/08/17 21:24 Intake & Output 12/08/17 12/08/17 12/09/17 11:59 23:59 11:59 Intake Total 900 450 Balance 900 450 Weight 308 lb 8 oz Intake: IVPB 100 100 Oral 450 Packed Cells 350 350 Other: Voiding Method Incontinent Diaper Incontinent # Unmeasured Voids Void 2 Bowel Movement No Yes # Bowel Movements 1 Height 5 ft 2 in Body Mass Index (BMI) 57.6 Weight Measurement Method [facility] Active Medications Acetaminophen (Tylenol -) 650 mg PO Q4H PRN PRN Reason: PAIN LEVEL 1-5 Last Admin: 12/09/17 06:41 Dose: 650 mg Acetaminophen (Tylenol -) 650 mg PO Q8H PRN PRN Reason: PAIN LEVEL 6-10 Last Admin: 12/08/17 15:35 Dose: 650 mg Atorvastatin Calcium (Lipitor -) 10 mg PO [facility] Last Admin: 12/08/17 21:39 Dose: 10 mg Bisacodyl (Dulcolax -) 5 mg PO [facility] Last Admin: 12/08/17 21:39 Dose: 5 mg Budesonide/Formoterol Fumarate (Symbicort 160/4.5mcg -) 1 puff IH BID [facility] Last Admin: 12/09/17 10:42 Dose: 1 puff Carvedilol (Coreg -) 25 mg PO DAILY [facility] Last Admin: 12/09/17 10:42 Dose: 25 mg Cholecalciferol (Vitamin D3 -) 1,000 unit PO DAILY [facility] Last Admin: 12/09/17 10:42 Dose: 1,000 unit Docusate Sodium (Colace -) 100 mg PO [facility] Last Admin: 12/08/17 21:39 Dose: 100 mg Epoetin Orlando (Procrit -) 10,000 unit SQ MoWeFr@0800 [facility] Last Admin: 12/09/17 08:27 Dose: 10,000 unit Folic Acid (Folic Acid -) 1 mg PO DAILY [facility] Last Admin: 12/09/17 10:42 Dose: 1 mg Furosemide (Lasix -) 80 mg PO BID@0600,1400 [facility] Last Admin: 12/09/17 06:41 Dose: 80 mg Gabapentin (Neurontin -) 100 mg PO TID [facility] Last Admin: 12/09/17 06:41 Dose: 100 mg Insulin Aspart (Novolog Vial) 5 units SQ TIDAC [facility] Last Admin: 12/09/17 06:41 Dose: 5 units Insulin Detemir (Levemir Vial) 33 units SQ [facility] Last Admin: 12/08/17 21:38 Dose: 33 units Isosorbide Mononitrate (Imdur -) 60 mg PO DAILY [facility] Last Admin: 12/09/17 10:42 Dose: 60 mg Lactulose (Cephulac (Oral Use)) 30 gm PO [facility] Last Admin: 12/08/17 21:40 Dose: 30 gm Metolazone (Zaroxolyn -) 5 mg PO DAILY [facility] Last Admin: 12/09/17 10:42 Dose: 5 mg Metoprolol Tartrate (Lopressor -) 50 mg PO TID [facility] Last Admin: 12/09/17 06:41 Dose: 50 mg Multivitamins/Minerals/Vitamin C (Tab-A-Vit -) 1 tab PO DAILY [facility] Last Admin: 12/09/17 10:42 Dose: 1 tab Nifedipine (Procardia Xl -) 90 mg PO DAILY [facility] Last Admin: 12/09/17 10:42 Dose: 90 mg Oxycodone HCl (Roxicodone -) 10 mg PO Q8H PRN PRN Reason: PAIN LEVEL 6-10 Last Admin: 12/09/17 00:22 Dose: 10 mg Polysaccharide Iron Complex (Niferex-150 -) 150 mg PO DAILY [facility] Last Admin: 12/09/17 10:42 Dose: 150 mg Ranitidine HCl (Zantac -) 150 mg PO DAILY [facility] Last Admin: 12/09/17 10:42 Dose: 150 mg Silver Sulfadiazine (Silvadene -) 1 applic TP BID [facility] Last Admin: 12/09/17 10:43 Dose: 1 applic CBC, BMP 12/08/17 06:00 12/08/17 06:00 INR, PTT INR 4.38 (0.83-1.09) H* 12/09/17 06:30 Physical Examination Conscious and cooperative. Morbidly obese Eyes: Yes: Conjunctiva Clear Neck: Yes: Supple Cardiovascular: No: Regular Rate and Rhythm Respiratory: Yes: Diminished Gastrointestinal: Yes: Abdomen, Obese Edema: LLE: 1+, RLE: 1+ Neurological: Yes: Alert Psychiatric: Yes: Alert stage II sacral decubitus Assessment/Plan monitor labs today Likely will need transfusion again Check stool for occult blood Consults GI also Coumadin on hold decubitus Care Will consult wound care team also melendez catheter will follow Problem List - Problems (1) Anemia requiring transfusions Code(s): D64.9 - ANEMIA, UNSPECIFIED (2) Encounter regarding vascular access for dialysis for end-stage renal disease Code(s): N18.6 - END STAGE RENAL DISEASE; Z99.2 - DEPENDENCE ON RENAL DIALYSIS (3) Afib Code(s): I48.91 - UNSPECIFIED ATRIAL FIBRILLATION Qualifiers: Atrial fibrillation type: persistent Qualified Code(s): I48.1 - Persistent atrial fibrillation (4) CKD (chronic kidney disease) stage 5, GFR less than 15 ml/min Code(s): N18.5 - CHRONIC KIDNEY DISEASE, STAGE 5 (5) Diabetes mellitus Code(s): E11.9 - TYPE 2 DIABETES MELLITUS WITHOUT COMPLICATIONS Qualifiers: Chronic kidney disease stage: unspecified stage (6) Functional quadriplegia Code(s): R53.2 - FUNCTIONAL QUADRIPLEGIA (7) Morbid obesity Code(s): E66.01 - MORBID (SEVERE) OBESITY DUE TO EXCESS CALORIES
--- NOTE | 2017-12-09 11:26 | PN ---
Progress Note (short form) - Note Progress Note: Pt with black stools noted, she does take iron pills. No abd complaints. As per nursing staff, she was transfused 2 units of PRBCs yesterday Vital Signs Period Temp Pulse Resp BP Sys/Contreras Pulse Ox Last 24 Hr 97.4 F-98.3 F 55-64 17-19 123-150/52-65 100 GEN: A&0x3, NAD ABD: obese, soft, non-distended Right hand: 22 gauge IV placed in the right index MCP joint. Blood aspirated and flushed with 20 cc NS. No infiltration. CBC, BMP 12/08/17 06:00 12/08/17 06:00 INR, PTT INR 4.38 (0.83-1.09) H* 12/09/17 06:30 Laboratory Tests 12/09/17 12:16 Hgb 6.6 L* Hct 20.3 L A/p: 72 yo female with ESRD, morbid obesity, anemia s/p PRBC with low H&H GI consulted and will observe and transfuse additional PRBC, stool for occult blood Holding coumadin Plan for Permacath/fistula as directed by renal D/w Dr. Escamilla
--- NOTE | 2017-12-09 11:59 | CON.GI ---
Consult Consult Specialty:: GI Reason for Consultation:: Anemia - History of Present Illness History of Present Illness: The pt is known to GI service from prior admissions. Chart reviewed. Events noted. Prior admissions for the same reviewed and noted. ESRD. On warfarin. INR 4.8 today. Admitted for HD access. Noted, again, to have normocytic, normochromic anemia w/o stigmata recent, or ongoing GI bleeding reported. NAD, AAOx3, obese, soft, non-tender abdomen. No BMs today. - History Source History Provided By: Patient, Medical Record, Caregiver (aid) - Past Medical History Cardio/Vascular: Yes: AFIB (anticoagulants for 5 yrs , on coumadin), CHF, HTN, Hyperlipdemia Pulmonary: Yes: Asthma, COPD Gastrointestinal: Yes: Constipation, GERD, Other (does not remember about colonscopy ) Renal/: Yes: Renal Inusuff, UTI (h/o recurrent uti) ...: No Psych: Yes: Depression (because son at age 38 yrs by sucide ) Musculoskeletal: Yes: Osteoarthritis Endocrine: Yes: Diabetes Mellitus (IDDM since age 40 yrs ), Other (morbid obesity ) Additional Medical History: morbid obesity - Past Surgical History Past Surgical History: Yes: (40 years ago per patient), Tubal Ligation - Alcohol/Substance Use Hx Alcohol Use: No History of Substance Use: reports: None - Smoking History Smoking history: Never smoked Have you smoked in the past 12 months: No Aproximately how many cigarettes per day: 0 - Social History Usual Living Arrangement: Retirement (for 2 yrs at [facility]) ADL: Support Services History of Recent Travel: No Home Medications - Allergies Allergies/Adverse Reactions: Allergies Allergy/AdvReac Type Severity Reaction Status Date / Time No Known Allergies Allergy Verified 10/14/17 17:13 - Home Medications Home Medications: Ambulatory Orders Allopurinol [Zyloprim -] 100 mg PO DAILY 10/14/17 Ascorbic Acid [C-500] 500 mg PO DAILY 10/14/17 Atorvastatin Calcium 10 mg PO HS 10/14/17 Carvedilol 25 mg PO DAILY 10/14/17 Cholecalciferol (Vitamin D3) [Vitamin D3] 1,000 unit PO DAILY 10/14/17 Docusate Sodium [Colace] 100 mg PO HS 10/14/17 Folic Acid 1 mg PO DAILY 10/14/17 Gabapentin [Neurontin -] 100 mg PO Q8H 10/14/17 Insulin Detemir [Levemir Flextouch] 33 unit SQ HS 10/14/17 Isosorbide Mononitrate 60 mg PO DAILY 10/14/17 Lactulose 30 gm PO HS 10/14/17 Metoprolol Tartrate 50 mg PO TID 10/14/17 Multivitamin [Multiple Vitamins] 1 each PO DAILY 10/14/17 Nifedipine ER [Procardia XL -] 90 mg PO DAILY 10/14/17 Ranitidine HCl 150 mg PO DAILY 10/14/17 Furosemide [Lasix -] 40 mg PO BID@0600,1400 #60 tablet 10/29/17 Bisacodyl [Bisacodyl -] 5 mg PO HS tablet. 11/14/17 Budesonide/Formeterol Fumarate [SYMBICORT 160/4.5mcg -] 1 inh PO DAILY 12/07/17 Epoetin [place] [Procrit] 10,000 unit IJ MOWEFR 12/07/17 Insulin Aspart [Novolog] 5 unit SQ TIDCM 12/07/17 Iron Polysaccharide Complex [Ferrex 150] 150 mg PO DAILY 12/07/17 Magnesium Hydrox 2400MG/30Ml [Milk of Magnesia -] 30 ml PO Q12H PRN 12/07/17 Metolazone [Zaroxolyn -] 2 tab PO DAILY 12/07/17 Oxycodone HCl/Acetaminophen [Percocet 5-325 mg Tablet] 2 tab PO TID 12/07/17 Silver Sulfadiazine 1% Top Cr [Silvadene -] 1 applic TP BID 12/07/17 Spironolactone 25 mg PO DAILY 12/07/17 Torsemide 20 mg PO DAILY 12/07/17 Warfarin Sodium [Coumadin] 4 mg PO HS 12/07/17 Family Disease History - Family Disease History Family Disease History: Diabetes: Father ( age 44, complications DM), Mother ( age 83), Daughter (Alive, ESRD), Heart Disease: Mother, Other: Son (, age 38 suicide), Daughter Review of Systems Findings/Remarks: as per HPI, ED, H&P Physical Exam-GI Vital Signs: Vital Signs Temperature 97.7 F 12/09/17 00:15 Pulse Rate 62 12/09/17 00:15 Respiratory Rate 17 12/09/17 00:15 Blood Pressure 123/65 12/09/17 00:15 O2 Sat by Pulse Oximetry (%) 100 12/08/17 21:24 Constitutional: Yes: No Distress, Calm Eyes: Yes: Conjunctiva Clear HENT: Yes: Atraumatic Neck: Yes: Decreased ROM. No: Tenderness Cardiovascular: No: Bradycardia, Tachycardia Respiratory: Yes: Regular Gastrointestinal Inspection: No: Ascites, Distention ...Auscultate: Yes: Normoactive Bowel Sounds ...Palpate: Yes: Soft. No: Firm/Rigid, Guarding, Mass, Tenderness, Tenderness, Epigastium, Tenderness, Rebound Edema: LLE: 2+, RLE: 2+ Neurological: Yes: Alert, Oriented Labs: CBC, BMP 12/08/17 06:00 12/08/17 06:00 INR, PTT INR 4.38 (0.83-1.09) H* 12/09/17 06:30 Laboratory Last Values WBC 9.6 K/mm3 (4.0-10.0) 12/09/17 12:16 RBC 2.34 M/mm3 (3.60-5.2) L 12/09/17 12:16 Hgb 6.6 GM/dL (10.7-15.3) L* 12/09/17 12:16 Hct 20.3 % (32.4-45.2) L 12/09/17 12:16 MCV 86.4 fl (80-96) 12/09/17 12:16 MCH 28.0 pg (25.7-33.7) 12/09/17 12:16 MCHC 32.4 g/dl (32.0-36.0) 12/09/17 12:16 RDW 16.4 % (11.6-15.6) H 12/09/17 12:16 Plt Count 116 K/MM3 (134-434) L 12/09/17 12:16 MPV 8.0 fl (7.5-11.1) 12/09/17 12:16 Absolute Neuts (auto) 7.2 K/mm3 (1.5-8.0) 12/09/17 12:16 Neutrophils % 74.5 % (42.8-82.8) 12/09/17 12:16 Lymphocytes % 16.1 % (8-40) 12/09/17 12:16 Monocytes % 5.8 % (3.8-10.2) 12/09/17 12:16 Eosinophils % 3.3 % (0-4.5) D 12/09/17 12:16 Basophils % 0.3 % (0-2.0) 12/09/17 12:16 Nucleated RBC % 0 % (0-0) 12/09/17 12:16 PT with INR 49.50 SEC (9.7-13.0) H 12/09/17 06:30 INR 4.38 (0.83-1.09) H* 12/09/17 06:30 Sodium 149 mmol/L (136-145) H 12/08/17 06:00 Potassium 5.1 mmol/L (3.5-5.1) 12/08/17 06:00 Chloride 110 mmol/L (98-107) H 12/08/17 06:00 Carbon Dioxide 31 mmol/L (21-32) 12/08/17 06:00 Anion Gap 8 MMOL/L (8-16) 12/08/17 06:00 BUN 181 mg/dL (7-18) H* 12/08/17 06:00 Creatinine 4.1 mg/dL (0.55-1.02) H 12/08/17 06:00 Creat Clearance w eGFR 10.70 (>60) 12/08/17 06:00 POC Glucometer 168 UNITS (80-120) 12/09/17 11:20 Random Glucose 172 mg/dL (74-106) H 12/08/17 06:00 Calcium 7.9 mg/dL (8.5-10.1) L 12/08/17 06:00 Total Bilirubin 0.2 mg/dL (0.2-1.0) 12/08/17 06:00 AST 10 U/L (15-37) L 12/08/17 06:00 ALT 12 U/L (12-78) 12/08/17 06:00 Alkaline Phosphatase 43 U/L (45-117) L 12/08/17 06:00 Total Protein 5.6 g/dl (6.4-8.2) L 12/08/17 06:00 Albumin 2.7 g/dl (3.4-5.0) L 12/08/17 06:00 Blood Type O POSITIVE 12/07/17 15:10 Antibody Screen Negative 12/07/17 15:10 Crossmatch See Detail 12/07/17 15:10 Problem List - Problems (1) Normocytic normochromic anemia Code(s): D64.9 - ANEMIA, UNSPECIFIED (2) Supratherapeutic INR Code(s): R79.1 - ABNORMAL COAGULATION PROFILE Assessment/Plan a 72-year-old female with multiple medical problems and frequent admissions for symptomatic anemia. GI called for the same. INR 4.8today. No stigmata of recent , or ongoing GI blood loss. Iron deficient in the the past. Significant renal insufficiency requiring HD. The patient's BMI puts her at high risk for complication in endoscopic work up, however, if observed, or suspected to have active, significant gastrointestinal bleeding, the benefit of intervention may outweigh the risk. Recommend conservative approach at this time. Hold A/C. Reevaluate need for anticoagulation if stools test positive for blood. Iron profile. Agree with Zantac qhs. Consider small dose PPI in the morning. Maintain hemoglobin above 8 g/dL. Will follow until d/c.
--- NOTE | 2017-12-09 12:00 | PN ---
Progress Note (short form) - Note Progress Note: Vascular Surgery Spoke to renal yesterday. Pt seen and examined. Pt will need Permacath once INR is normal. Pt had vein mapping performed on 12/07 -- will look to see if pt is a candidate for avf. Prince remy DO
[2017-12-09 12:34] LABS: BASO % 0.3 % (0-2.0); EOS % 3.3 % (0-4.5); HEMATOCRIT 20.3 % (32.4-45.2); LYMPH % 16.1 % (8-40); MCHC 32.4 g/dl (32.0-36.0); MEAN CELL VOLUME 86.4 fl (80-96); MONO % 5.8 % (3.8-10.2); NEUT % 74.5 % (42.8-82.8); PLATELET COUNT 116 K/MM3 (134-434); RBC 2.34 M/mm3 (3.60-5.2); RDW 16.4 % (11.6-15.6); WHITE BLOOD COUNT 9.6 K/mm3 (4.0-10.0)
[2017-12-09 12:42] LABS: HEMOGLOBIN 6.6 GM/dL (10.7-15.3)
[2017-12-09] MEDS ORDERED: FUROSEMIDE 40 MG/4 ML INJECTABLE VIAL IVPUSH ONE (12:48)
[2017-12-09] MEDS ORDERED: FUROSEMIDE 40 MG/4 ML INJECTABLE VIAL IVPUSH SCH (13:15)
[2017-12-09 13:17] LABS: ALBUMIN 2.5 g/dl (3.4-5.0); ANION GAP 7 MMOL/L (8-16); CALCIUM 7.8 mg/dL (8.5-10.1); CHLORIDE 112 mmol/L (98-107); CO2 33 mmol/L (21-32); CREATININE 3.9 mg/dL (0.55-1.02); GLUCOSE,RANDOM 154 mg/dL (74-106); POTASSIUM 4.9 mmol/L (3.5-5.1); SGOT/AST 7 U/L (15-37); SGPT/ALT 12 U/L (12-78); SODIUM 152 mmol/L (136-145)
[2017-12-09 13:21] LABS: ALK PHOS 38 U/L (45-117); BILIRUBIN,TOTAL 0.3 mg/dL (0.2-1.0); TOT PROT 5.1 g/dl (6.4-8.2)
[2017-12-09 13:24] LABS: BLOOD UREA NITROGEN 181 mg/dL (7-18)
--- NOTE | 2017-12-09 14:05 | PN ---
Progress Note, Physician History of Present Illness: Pt seen and examined at bedside. She is awake and alert. She is making urine. She denies shortness of breath. - Current Medication List Current Medications: Active Medications Acetaminophen (Tylenol -) 650 mg PO Q4H PRN PRN Reason: PAIN LEVEL 1-5 Last Admin: 12/09/17 06:41 Dose: 650 mg Acetaminophen (Tylenol -) 650 mg PO Q8H PRN PRN Reason: PAIN LEVEL 6-10 Last Admin: 12/08/17 15:35 Dose: 650 mg Atorvastatin Calcium (Lipitor -) 10 mg PO HS [facility] Last Admin: 12/08/17 21:39 Dose: 10 mg Bisacodyl (Dulcolax -) 5 mg PO HS [facility] Last Admin: 12/08/17 21:39 Dose: 5 mg Budesonide/Formoterol Fumarate (Symbicort 160/4.5mcg -) 1 puff IH BID [facility] Last Admin: 12/09/17 10:42 Dose: 1 puff Carvedilol (Coreg -) 25 mg PO DAILY [facility] Last Admin: 12/09/17 10:42 Dose: 25 mg Cholecalciferol (Vitamin D3 -) 1,000 unit PO DAILY [facility] Last Admin: 12/09/17 10:42 Dose: 1,000 unit Docusate Sodium (Colace -) 100 mg PO [facility] Last Admin: 12/08/17 21:39 Dose: 100 mg Epoetin [place] (Procrit -) 10,000 unit SQ MoWeFr@0800 [facility] Last Admin: 12/09/17 08:27 Dose: 10,000 unit Folic Acid (Folic Acid -) 1 mg PO DAILY [facility] Last Admin: 12/09/17 10:42 Dose: 1 mg Furosemide (Lasix -) 80 mg PO BID@0600,1400 [facility] Last Admin: 12/09/17 06:41 Dose: 80 mg Furosemide (Lasix Injection -) 20 mg IVPUSH [employer] [facility] Stop: 12/09/17 16:00 Gabapentin (Neurontin -) 100 mg PO TID [facility] Last Admin: 12/09/17 06:41 Dose: 100 mg Insulin Aspart (Novolog Vial) 5 units SQ TIDAC [facility] Last Admin: 12/09/17 12:46 Dose: Not Given Insulin Detemir (Levemir Vial) 33 units SQ HS [facility] Last Admin: 12/08/17 21:38 Dose: 33 units Isosorbide Mononitrate (Imdur -) 60 mg PO DAILY [facility] Last Admin: 12/09/17 10:42 Dose: 60 mg Lactulose (Cephulac (Oral Use)) 30 gm PO HS [facility] Last Admin: 12/08/17 21:40 Dose: 30 gm Metolazone (Zaroxolyn -) 5 mg PO DAILY [facility] Last Admin: 12/09/17 10:42 Dose: 5 mg Metoprolol Tartrate (Lopressor -) 50 mg PO TID [facility] Last Admin: 12/09/17 06:41 Dose: 50 mg Multivitamins/Minerals/Vitamin C (Tab-A-Vit -) 1 tab PO DAILY [facility] Last Admin: 12/09/17 10:42 Dose: 1 tab Nifedipine (Procardia Xl -) 90 mg PO DAILY [facility] Last Admin: 12/09/17 10:42 Dose: 90 mg Oxycodone HCl (Roxicodone -) 10 mg PO Q8H PRN PRN Reason: PAIN LEVEL 6-10 Last Admin: 12/09/17 12:15 Dose: 10 mg Polysaccharide Iron Complex (Niferex-150 -) 150 mg PO DAILY [facility] Last Admin: 12/09/17 10:42 Dose: 150 mg Ranitidine HCl (Zantac -) 150 mg PO DAILY [facility] Last Admin: 12/09/17 10:42 Dose: 150 mg Silver Sulfadiazine (Silvadene -) 1 applic TP BID [facility] Last Admin: 12/09/17 10:43 Dose: 1 applic - Objective Vital Signs: Vital Signs Temperature 97.7 F 12/09/17 00:15 Pulse Rate 62 12/09/17 00:15 Respiratory Rate 17 12/09/17 00:15 Blood Pressure 123/65 12/09/17 00:15 O2 Sat by Pulse Oximetry (%) 100 12/09/17 09:00 Constitutional: Yes: Calm Eyes: Yes: Conjunctiva Clear HENT: Yes: Atraumatic Neck: Yes: Supple Cardiovascular: Yes: S1, S2 Respiratory: Yes: On Nasal O2 Gastrointestinal: Yes: Soft, Abdomen, Obese Genitourinary: Yes: Sterling Present Musculoskeletal: Yes: Muscle Weakness Edema: Yes Edema: LLE: 1+, RLE: 1+ Neurological: Yes: Oriented Psychiatric: Yes: Oriented Labs: CBC, BMP 12/09/17 12:16 12/09/17 12:16 INR, PTT INR 4.38 (0.83-1.09) H* 12/09/17 06:30 Problem List - Problems (1) Anemia requiring transfusions Code(s): D64.9 - ANEMIA, UNSPECIFIED (2) Afib Code(s): I48.91 - UNSPECIFIED ATRIAL FIBRILLATION Qualifiers: Atrial fibrillation type: persistent Qualified Code(s): I48.1 - Persistent atrial fibrillation (3) Anemia Code(s): D64.9 - ANEMIA, UNSPECIFIED Qualifiers: Anemia type: unspecified type Qualified Code(s): D64.9 - Anemia, unspecified (4) CHF (congestive heart failure) Code(s): I50.9 - HEART FAILURE, UNSPECIFIED (5) CHF (congestive heart failure) Code(s): I50.9 - HEART FAILURE, UNSPECIFIED (6) CKD (chronic kidney disease) Code(s): N18.9 - CHRONIC KIDNEY DISEASE, UNSPECIFIED Qualifiers: Chronic kidney disease stage: unspecified stage Qualified Code(s): N18.9 - Chronic kidney disease, unspecified (7) CKD (chronic kidney disease) stage 5, GFR less than 15 ml/min Code(s): N18.5 - CHRONIC KIDNEY DISEASE, STAGE 5 Assessment/Plan Current Medications Generic Name Dose Route Start Last Admin Trade Name Freq PRN Reason Stop Dose Admin Acetaminophen 650 mg 12/07/17 22:39 12/09/17 06:41 Tylenol - PO 650 mg Q4H PRN Administration PAIN LEVEL 1-5 Acetaminophen 650 mg 12/08/17 05:12 12/08/17 15:35 Tylenol - PO 650 mg Q8H PRN Administration PAIN LEVEL 6-10 Atorvastatin Calcium 10 mg 12/08/17 22:00 12/08/17 21:39 Lipitor - PO 10 mg HS [facility] Administration Bisacodyl 5 mg 12/08/17 22:00 12/08/17 21:39 Dulcolax - PO 5 mg HS [facility] Administration Budesonide/Formoterol Fumarate 1 puff 12/08/17 10:00 12/09/17 10:42 Symbicort 160/4.5mcg - IH 1 puff BID [facility] Administration Carvedilol 25 mg 12/08/17 10:00 12/09/17 10:42 Coreg - PO 25 mg DAILY [facility] Administration Cholecalciferol 1,000 unit 12/08/17 10:00 12/09/17 10:42 Vitamin D3 - PO 1,000 unit DAILY [facility] Administration Docusate Sodium 100 mg 12/08/17 22:00 12/08/17 21:39 Colace - PO 100 mg HS [facility] Administration Epoetin [place] 10,000 unit 12/08/17 08:00 12/09/17 08:27 Procrit - SQ 10,000 unit MoWeFr@0800 [facility] Administration Folic Acid 1 mg 12/08/17 10:00 12/09/17 10:42 Folic Acid - PO 1 mg DAILY [facility] Administration Furosemide 80 mg 12/09/17 06:00 12/09/17 06:41 Lasix - PO 80 mg BID@0600,1400 [facility] Administration Furosemide 20 mg 12/09/17 13:15 Lasix Injection - IVPUSH 12/09/17 16:00 [employer] [facility] Gabapentin 100 mg 12/07/17 22:45 12/09/17 06:41 Neurontin - PO 100 mg TID [facility] Administration Insulin Aspart 5 units 12/08/17 07:00 12/09/17 12:46 Novolog Vial SQ Not Given TIDAC [facility] Insulin Detemir 33 units 12/08/17 22:00 12/08/17 21:38 Levemir Vial SQ 33 units HS [facility] Administration Isosorbide Mononitrate 60 mg 12/08/17 10:00 12/09/17 10:42 Imdur - PO 60 mg DAILY [facility] Administration Lactulose 30 gm 12/08/17 22:00 12/08/17 21:40 Cephulac (Oral Use) PO 30 gm HS [facility] Administration Metolazone 5 mg 12/08/17 10:00 12/09/17 10:42 Zaroxolyn - PO 5 mg DAILY [facility] Administration Metoprolol Tartrate 50 mg 12/08/17 06:00 12/09/17 06:41 Lopressor - PO 50 mg TID [facility] Administration Multivitamins/Minerals/Vitamin C 1 tab 12/08/17 10:00 12/09/17 10:42 Tab-A-Vit - PO 1 tab DAILY [facility] Administration Nifedipine 90 mg 12/08/17 10:00 12/09/17 10:42 Procardia Xl - PO 90 mg DAILY [facility] Administration Oxycodone HCl 10 mg 12/07/17 23:02 12/09/17 12:15 Roxicodone - PO 10 mg Q8H PRN Administration PAIN LEVEL 6-10 Polysaccharide Iron Complex 150 mg 12/08/17 10:00 12/09/17 10:42 Niferex-150 - PO 150 mg DAILY [facility] Administration Ranitidine HCl 150 mg 12/08/17 10:00 12/09/17 10:42 Zantac - PO 150 mg DAILY [facility] Administration Silver Sulfadiazine 1 applic 12/08/17 10:00 12/09/17 10:43 Silvadene - TP 1 applic BID [facility] Administration Impression 1. CKD 2. obesity 3. hyperlipidemia 4. HTN 5. DM 6. CHF 7. CAD 8. anemia 9. a-fib 10. iron deficiency 11. r/o TIA 12. hyperkalemia Plan - cont to monitor renal function - will need permacath and fistula, pending INR to stabilize - check stool for occult blood, bun is high and she is anemic - cont to monitor renal function - potassium stable - cont with epogen - cont prbc per primary team - check iron levels - I again discussed dialysis and she is in agreement, she is willing to start when the permacath is in - discussed with vascular, will look at vein mapping to see if she has any blood vessels that may be useable.
[2017-12-09] MEDS: LACTULOSE 20 GM/30 ML UDC (FOR ORAL USE ONLY) PO SCH ×2 (22:15→22:33)
[2017-12-09] MEDS: DOCUSATE SODIUM 100 MG CAPSULE (FP) PO SCH (22:16)
[2017-12-09] MEDS: BISACODYL 5 MG TABLET.DR (FP) PO SCH (22:16)
[2017-12-09] MEDS: ATORVASTATIN CA 10 MG TABLET (FP) PO SCH (22:17)
[2017-12-09] MEDS: INSULIN (LEVEMIR) 100 UNITS/ML UNITS SQ SCH (22:18)
[2017-12-10] MEDS: FUROSEMIDE 40 MG TABLET (FP) PO SCH ×2 (06:24→13:34)
[2017-12-10] MEDS: GABAPENTIN 100 MG CAPSULE (FP) PO SCH ×3 (06:24→21:10)
[2017-12-10] MEDS: INSULIN (NOVOLOG) ASPART 100 UNITS/ML 10ML VIAL SQ SCH ×3 (06:26→16:46)
[2017-12-10] MEDS: METOPROLOL TARTRATE 50 MG TABLET (FP) PO SCH ×3 (06:26→21:09)
[2017-12-10] MEDS: oxyCODONE HCL 5 MG TABLET PO PRN (06:32)
[2017-12-10] MEDS: ACETAMINOPHEN 325 MG TABLET (FP) PO PRN ×2 (06:33→20:15)
[2017-12-10] MEDS ORDERED: INSULIN (NOVOLOG) ASPART 100 UNITS/ML 10ML VIAL ONE (06:50)
[2017-12-10] MEDS ORDERED: PT OWN MED DRAWER 7, Y5N ONE ×3 (06:51→22:14)
[2017-12-10 08:33] LABS: BASO % 0.6 % (0-2.0); EOS % 2.8 % (0-4.5); HEMOGLOBIN 8.2 GM/dL (10.7-15.3); MCH 28.5 pg (25.7-33.7); MCHC 32.8 g/dl (32.0-36.0); MEAN CELL VOLUME 86.9 fl (80-96); MEAN PLT VOLUME 8.3 fl (7.5-11.1); MONO % 6.4 % (3.8-10.2); NEUT % 72.2 % (42.8-82.8); PLATELET COUNT 125 K/MM3 (134-434); RBC 2.88 M/mm3 (3.60-5.2); RDW 15.9 % (11.6-15.6); WHITE BLOOD COUNT 11.1 K/mm3 (4.0-10.0)
[2017-12-10 09:05] LABS: PROTHROMBIN TIME (PATIENT) 47.1 SEC (9.7-13.0)
[2017-12-10 09:09] LABS: ALBUMIN 2.6 g/dl (3.4-5.0); ALK PHOS 40 U/L (45-117); ANION GAP 9 MMOL/L (8-16); BILIRUBIN,TOTAL 0.3 mg/dL (0.2-1.0); CALCIUM 7.9 mg/dL (8.5-10.1); CHLORIDE 113 mmol/L (98-107); CO2 31 mmol/L (21-32); CREATININE 3.8 mg/dL (0.55-1.02); GLUCOSE,RANDOM 109 mg/dL (74-106); POTASSIUM 4.6 mmol/L (3.5-5.1); SGOT/AST 9 U/L (15-37); SGPT/ALT 13 U/L (12-78); SODIUM 153 mmol/L (136-145); TOT PROT 5.3 g/dl (6.4-8.2)
[2017-12-10 09:12] LABS: INR 4.17 (0.83-1.09)
[2017-12-10 09:33] LABS: BLOOD UREA NITROGEN 184 mg/dL (7-18)
[2017-12-10] MEDS: FOLIC ACID 1 MG TABLET (FP) PO SCH (10:27)
[2017-12-10] MEDS: CARVEDILOL 25 MG TABLET (FP) PO SCH (10:27)
[2017-12-10] MEDS: BUDESONIDE/FORMETEROL FUMARATE 160/4.5 mcg INHALER IH SCH ×2 (10:27→21:12)
[2017-12-10] MEDS: ISOSORBIDE MONONITRATE 60 MG TAB.SR.24H (FP) PO SCH (10:27)
[2017-12-10] MEDS: METOLAZONE 5 MG TABLET PO SCH (10:27)
[2017-12-10] MEDS: RANITIDINE HCL 150 MG TABLET (FP) PO SCH (10:27)
[2017-12-10] MEDS: SILVER SULFADIAZINE 1% TOP CREAM 50 GM JAR TP SCH ×2 (10:28→21:12)
[2017-12-10] MEDS: MULTIVITAMINS (DAILY MVI) TABLET (FP) PO SCH (10:28)
[2017-12-10] MEDS: CHOLECALCIFEROL (VITAMIN D3) 1,000 UNIT TABLET (FP) PO SCH (10:28)
[2017-12-10] MEDS: IRON POLYSACCHARIDES 150 MG CAPSULE PO SCH (10:28)
[2017-12-10] MEDS: NIFEdipine E.R. 90 MG TABLET (FP) PO SCH (10:28)
--- NOTE | 2017-12-10 12:06 | PN ---
Progress Note (short form) - Note Progress Note: Alert/ Awake Comfortable All consult/ f/u noted Discussed with GI Dr. Mon also yesterday Vital Signs Temp 97.8 F 12/10/17 10:00 Pulse 62 12/10/17 10:00 Resp 18 12/10/17 10:00 BP 152/61 12/10/17 10:00 Pulse Ox 98 12/10/17 09:00 Intake & Output 12/09/17 12/10/17 12/10/17 23:59 11:59 23:59 Intake Total 400 1100 Output Total 2800 600 Balance -2400 500 Weight 308 lb 312 lb 4 oz Intake: IVPB 200 Oral 400 200 Packed Cells 700 Output: Urine 2800 600 Sterling 1800 600 Void 1000 Other: Voiding Method Indwelling Catheter Indwelling Catheter Bowel Movement No Height 5 ft 2 in Body Mass Index (BMI) 56.3 Weight Measurement Method Built in [facility] Active Medications Acetaminophen (Tylenol -) 650 mg PO Q4H PRN PRN Reason: PAIN LEVEL 1-5 Last Admin: 12/09/17 06:41 Dose: 650 mg Acetaminophen (Tylenol -) 650 mg PO Q8H PRN PRN Reason: PAIN LEVEL 6-10 Last Admin: 12/10/17 06:33 Dose: 650 mg Atorvastatin Calcium (Lipitor -) 10 mg PO [facility] Last Admin: 12/09/17 22:17 Dose: 10 mg Bisacodyl (Dulcolax -) 5 mg PO [facility] Last Admin: 12/09/17 22:16 Dose: 5 mg Budesonide/Formoterol Fumarate (Symbicort 160/4.5mcg -) 1 puff IH BID [facility] Last Admin: 12/10/17 10:27 Dose: 1 puff Carvedilol (Coreg -) 25 mg PO DAILY [facility] Last Admin: 12/10/17 10:27 Dose: 25 mg Cholecalciferol (Vitamin D3 -) 1,000 unit PO DAILY [facility] Last Admin: 12/10/17 10:28 Dose: 1,000 unit Docusate Sodium (Colace -) 100 mg PO [facility] Last Admin: 12/09/17 22:16 Dose: 100 mg Epoetin [place] (Procrit -) 10,000 unit SQ MoWeFr@0800 [facility] Last Admin: 12/09/17 08:27 Dose: 10,000 unit Folic Acid (Folic Acid -) 1 mg PO DAILY [facility] Last Admin: 12/10/17 10:27 Dose: 1 mg Furosemide (Lasix -) 80 mg PO BID@0600,1400 [facility] Last Admin: 12/10/17 06:24 Dose: 80 mg Gabapentin (Neurontin -) 100 mg PO TID [facility] Last Admin: 12/10/17 06:24 Dose: 100 mg Insulin Aspart (Novolog Vial) 5 units SQ TIDAC [facility] Last Admin: 12/10/17 10:29 Dose: 5 units Insulin Detemir (Levemir Vial) 33 units SQ HS [facility] Last Admin: 12/09/17 22:18 Dose: 33 units Isosorbide Mononitrate (Imdur -) 60 mg PO DAILY [facility] Last Admin: 12/10/17 10:27 Dose: 60 mg Lactulose (Cephulac (Oral Use)) 30 gm PO HS [facility] Last Admin: 12/09/17 22:33 Dose: Not Given Metolazone (Zaroxolyn -) 5 mg PO DAILY [facility] Last Admin: 12/10/17 10:27 Dose: 5 mg Metoprolol Tartrate (Lopressor -) 50 mg PO TID [facility] Last Admin: 12/10/17 06:26 Dose: 50 mg Multivitamins/Minerals/Vitamin C (Tab-A-Vit -) 1 tab PO DAILY [facility] Last Admin: 12/10/17 10:28 Dose: 1 tab Nifedipine (Procardia Xl -) 90 mg PO DAILY [facility] Last Admin: 12/10/17 10:28 Dose: 90 mg Oxycodone HCl (Roxicodone -) 10 mg PO Q8H PRN PRN Reason: PAIN LEVEL 6-10 Last Admin: 12/10/17 06:32 Dose: 10 mg Polysaccharide Iron Complex (Niferex-150 -) 150 mg PO DAILY [facility] Last Admin: 12/10/17 10:28 Dose: 150 mg Ranitidine HCl (Zantac -) 150 mg PO DAILY [facility] Last Admin: 12/10/17 10:27 Dose: 150 mg Silver Sulfadiazine (Silvadene -) 1 applic TP BID [facility] Last Admin: 12/10/17 10:28 Dose: 1 applic CBC, BMP 12/10/17 08:15 12/10/17 08:15 Physical Examination Conscious and cooperative. Morbidly obese Eyes: Yes: Conjunctiva Clear Neck: Yes: Supple Cardiovascular: No: Regular Rate and Rhythm Respiratory: Yes: Diminished Gastrointestinal: Yes: Abdomen, Obese Edema: LLE: 1+, RLE: 1+ Neurological: Yes: Alert Psychiatric: Yes: Alert stage II sacral decubitus Assessment/Plan h/h improved await inr to come down access being planned will follow Problem List - Problems (1) Anemia requiring transfusions Code(s): D64.9 - ANEMIA, UNSPECIFIED (2) Encounter regarding vascular access for dialysis for end-stage renal disease Code(s): N18.6 - END STAGE RENAL DISEASE; Z99.2 - DEPENDENCE ON RENAL DIALYSIS (3) Afib Code(s): I48.91 - UNSPECIFIED ATRIAL FIBRILLATION Qualifiers: Atrial fibrillation type: persistent Qualified Code(s): I48.1 - Persistent atrial fibrillation (4) CKD (chronic kidney disease) stage 5, GFR less than 15 ml/min Code(s): N18.5 - CHRONIC KIDNEY DISEASE, STAGE 5 (5) Diabetes mellitus Code(s): E11.9 - TYPE 2 DIABETES MELLITUS WITHOUT COMPLICATIONS Qualifiers: Chronic kidney disease stage: unspecified stage (6) Functional quadriplegia Code(s): R53.2 - FUNCTIONAL QUADRIPLEGIA (7) Morbid obesity Code(s): E66.01 - MORBID (SEVERE) OBESITY DUE TO EXCESS CALORIES
--- NOTE | 2017-12-10 14:03 | PN ---
Progress Note, Physician History of Present Illness: Pt seen and examined at bedside. She is awake and alert. She says she feels thirsty. She denies shortness of breath. - Current Medication List Current Medications: Active Medications Acetaminophen (Tylenol -) 650 mg PO Q4H PRN PRN Reason: PAIN LEVEL 1-5 Last Admin: 12/09/17 06:41 Dose: 650 mg Acetaminophen (Tylenol -) 650 mg PO Q8H PRN PRN Reason: PAIN LEVEL 6-10 Last Admin: 12/10/17 06:33 Dose: 650 mg Atorvastatin Calcium (Lipitor -) 10 mg PO [facility] Last Admin: 12/09/17 22:17 Dose: 10 mg Bisacodyl (Dulcolax -) 5 mg PO [facility] Last Admin: 12/09/17 22:16 Dose: 5 mg Budesonide/Formoterol Fumarate (Symbicort 160/4.5mcg -) 1 puff IH BID [facility] Last Admin: 12/10/17 10:27 Dose: 1 puff Carvedilol (Coreg -) 25 mg PO DAILY [facility] Last Admin: 12/10/17 10:27 Dose: 25 mg Cholecalciferol (Vitamin D3 -) 1,000 unit PO DAILY [facility] Last Admin: 12/10/17 10:28 Dose: 1,000 unit Docusate Sodium (Colace -) 100 mg PO [facility] Last Admin: 12/09/17 22:16 Dose: 100 mg Epoetin [place] (Procrit -) 10,000 unit SQ MoWeFr@0800 [facility] Last Admin: 12/09/17 08:27 Dose: 10,000 unit Folic Acid (Folic Acid -) 1 mg PO DAILY [facility] Last Admin: 12/10/17 10:27 Dose: 1 mg Furosemide (Lasix -) 80 mg PO BID@0600,1400 [facility] Last Admin: 12/10/17 13:34 Dose: 80 mg Gabapentin (Neurontin -) 100 mg PO TID [facility] Last Admin: 12/10/17 13:34 Dose: 100 mg Insulin Aspart (Novolog Vial) 5 units SQ TIDAC [facility] Last Admin: 12/10/17 10:29 Dose: 5 units Insulin Detemir (Levemir Vial) 33 units SQ [facility] Last Admin: 12/09/17 22:18 Dose: 33 units Isosorbide Mononitrate (Imdur -) 60 mg PO DAILY [facility] Last Admin: 12/10/17 10:27 Dose: 60 mg Lactulose (Cephulac (Oral Use)) 30 gm PO HS [facility] Last Admin: 12/09/17 22:33 Dose: Not Given Metolazone (Zaroxolyn -) 5 mg PO DAILY [facility] Last Admin: 12/10/17 10:27 Dose: 5 mg Metoprolol Tartrate (Lopressor -) 50 mg PO TID [facility] Last Admin: 12/10/17 13:34 Dose: 50 mg Multivitamins/Minerals/Vitamin C (Tab-A-Vit -) 1 tab PO DAILY [facility] Last Admin: 12/10/17 10:28 Dose: 1 tab Nifedipine (Procardia Xl -) 90 mg PO DAILY [facility] Last Admin: 12/10/17 10:28 Dose: 90 mg Oxycodone HCl (Roxicodone -) 10 mg PO Q8H PRN PRN Reason: PAIN LEVEL 6-10 Last Admin: 12/10/17 06:32 Dose: 10 mg Polysaccharide Iron Complex (Niferex-150 -) 150 mg PO DAILY [facility] Last Admin: 12/10/17 10:28 Dose: 150 mg Ranitidine HCl (Zantac -) 150 mg PO DAILY [facility] Last Admin: 12/10/17 10:27 Dose: 150 mg Silver Sulfadiazine (Silvadene -) 1 applic TP BID [facility] Last Admin: 12/10/17 10:28 Dose: 1 applic - Objective Vital Signs: Vital Signs Temperature 97.8 F 12/10/17 10:00 Pulse Rate 62 12/10/17 10:00 Respiratory Rate 18 12/10/17 10:00 Blood Pressure 152/61 12/10/17 10:00 O2 Sat by Pulse Oximetry (%) 98 12/10/17 09:00 Constitutional: Yes: Calm Eyes: Yes: Conjunctiva Clear HENT: Yes: Atraumatic Cardiovascular: Yes: S1, S2 Respiratory: Yes: On Nasal O2 Gastrointestinal: Yes: Soft, Abdomen, Obese Genitourinary: Yes: Sterling Present Musculoskeletal: Yes: Muscle Weakness Edema: Yes Edema: LLE: 1+, RLE: 1+ Neurological: Yes: Oriented Psychiatric: Yes: Oriented Labs: CBC, BMP 12/10/17 08:15 09/01/18 08:15 INR, PTT INR 4.17 (0.83-1.09) H* 12/10/17 08:15 Problem List - Problems (1) Anemia requiring transfusions Code(s): D64.9 - ANEMIA, UNSPECIFIED (2) Afib Code(s): I48.91 - UNSPECIFIED ATRIAL FIBRILLATION Qualifiers: Atrial fibrillation type: persistent Qualified Code(s): I48.1 - Persistent atrial fibrillation (3) Anemia Code(s): D64.9 - ANEMIA, UNSPECIFIED Qualifiers: Anemia type: unspecified type Qualified Code(s): D64.9 - Anemia, unspecified (4) CHF (congestive heart failure) Code(s): I50.9 - HEART FAILURE, UNSPECIFIED (5) CHF (congestive heart failure) Code(s): I50.9 - HEART FAILURE, UNSPECIFIED (6) CKD (chronic kidney disease) Code(s): N18.9 - CHRONIC KIDNEY DISEASE, UNSPECIFIED Qualifiers: Chronic kidney disease stage: unspecified stage Qualified Code(s): N18.9 - Chronic kidney disease, unspecified (7) CKD (chronic kidney disease) stage 5, GFR less than 15 ml/min Code(s): N18.5 - CHRONIC KIDNEY DISEASE, STAGE 5 Assessment/Plan Current Medications Generic Name Dose Route Start Last Admin Trade Name Freq PRN Reason Stop Dose Admin Acetaminophen 650 mg 12/07/17 22:39 12/09/17 06:41 Tylenol - PO 650 mg Q4H PRN Administration PAIN LEVEL 1-5 Acetaminophen 650 mg 12/08/17 05:12 12/10/17 06:33 Tylenol - PO 650 mg Q8H PRN Administration PAIN LEVEL 6-10 Atorvastatin Calcium 10 mg 12/08/17 22:00 12/09/17 22:17 Lipitor - PO 10 mg HS [facility] Administration Bisacodyl 5 mg 12/08/17 22:00 12/09/17 22:16 Dulcolax - PO 5 mg HS [facility] Administration Budesonide/Formoterol Fumarate 1 puff 12/08/17 10:00 12/10/17 10:27 Symbicort 160/4.5mcg - IH 1 puff BID [facility] Administration Carvedilol 25 mg 12/08/17 10:00 12/10/17 10:27 Coreg - PO 25 mg DAILY [facility] Administration Cholecalciferol 1,000 unit 12/08/17 10:00 12/10/17 10:28 Vitamin D3 - PO 1,000 unit DAILY [facility] Administration Docusate Sodium 100 mg 12/08/17 22:00 12/09/17 22:16 Colace - PO 100 mg HS [facility] Administration Epoetin [place] 10,000 unit 12/08/17 08:00 12/09/17 08:27 Procrit - SQ 10,000 unit MoWeFr@0800 [facility] Administration Folic Acid 1 mg 12/08/17 10:00 12/10/17 10:27 Folic Acid - PO 1 mg DAILY [facility] Administration Furosemide 80 mg 12/09/17 06:00 12/10/17 13:34 Lasix - PO 80 mg BID@0600,1400 [facility] Administration Gabapentin 100 mg 12/07/17 22:45 12/10/17 13:34 Neurontin - PO 100 mg TID [facility] Administration Insulin Aspart 5 units 12/08/17 07:00 12/10/17 10:29 Novolog Vial SQ 5 units TIDAC [facility] Administration Insulin Detemir 33 units 12/08/17 22:00 12/09/17 22:18 Levemir Vial SQ 33 units HS [facility] Administration Isosorbide Mononitrate 60 mg 12/08/17 10:00 12/10/17 10:27 Imdur - PO 60 mg DAILY [facility] Administration Lactulose 30 gm 12/08/17 22:00 12/09/17 22:33 Cephulac (Oral Use) PO Not Given [facility] Metolazone 5 mg 12/08/17 10:00 12/10/17 10:27 Zaroxolyn - PO 5 mg DAILY [facility] Administration Metoprolol Tartrate 50 mg 12/08/17 06:00 12/10/17 13:34 Lopressor - PO 50 mg TID [facility] Administration Multivitamins/Minerals/Vitamin C 1 tab 12/08/17 10:00 12/10/17 10:28 Tab-A-Vit - PO 1 tab DAILY [facility] Administration Nifedipine 90 mg 12/08/17 10:00 12/10/17 10:28 Procardia Xl - PO 90 mg DAILY [facility] Administration Oxycodone HCl 10 mg 12/07/17 23:02 12/10/17 06:32 Roxicodone - PO 10 mg Q8H PRN Administration PAIN LEVEL 6-10 Polysaccharide Iron Complex 150 mg 12/08/17 10:00 12/10/17 10:28 Niferex-150 - PO 150 mg DAILY [facility] Administration Ranitidine HCl 150 mg 12/08/17 10:00 12/10/17 10:27 Zantac - PO 150 mg DAILY [facility] Administration Silver Sulfadiazine 1 applic 12/08/17 10:00 12/10/17 10:28 Silvadene - TP 1 applic BID [facility] Administration Impression 1. CKD 2. obesity 3. hyperlipidemia 4. HTN 5. DM 6. CHF 7. CAD 8. anemia 9. a-fib 10. iron deficiency 11. r/o TIA 12. hyperkalemia Plan - hg is improving - monitor renal function - follow INR - can change lasix to daily for now - repeat labs in am - awaiting INR to improve before HD access - will follow - can encourage free water intake as sodium is elevated
[2017-12-10] MEDS: DOCUSATE SODIUM 100 MG CAPSULE (FP) PO SCH (21:09)
[2017-12-10] MEDS: LACTULOSE 20 GM/30 ML UDC (FOR ORAL USE ONLY) PO SCH (21:09)
[2017-12-10] MEDS: INSULIN (LEVEMIR) 100 UNITS/ML UNITS SQ SCH (21:10)
[2017-12-10] MEDS: BISACODYL 5 MG TABLET.DR (FP) PO SCH (21:10)
[2017-12-10] MEDS: ATORVASTATIN CA 10 MG TABLET (FP) PO SCH (21:10)
[2017-12-11] MEDS: ACETAMINOPHEN 325 MG TABLET (FP) PO PRN ×3 (05:06→21:24)
[2017-12-11] MEDS: METOPROLOL TARTRATE 50 MG TABLET (FP) PO SCH ×3 (05:06→21:19)
[2017-12-11] MEDS: GABAPENTIN 100 MG CAPSULE (FP) PO SCH ×3 (05:09→21:18)
[2017-12-11] MEDS: INSULIN (NOVOLOG) ASPART 100 UNITS/ML 10ML VIAL SQ SCH ×3 (06:28→17:25)
[2017-12-11 06:36] LABS: SERUM IRON SATURATION 18 % (15-55); TOTAL IRON BINDING CAPACITY 225 ug/dL (250-450); UIBC 185 ug/dL (118-369)
[2017-12-11] MEDS ORDERED: INSULIN (LEVEMIR) 100 UNITS/ML UNITS SQ ONE (06:37)
[2017-12-11] MEDS ORDERED: INSULIN (NOVOLOG) ASPART 100 UNITS/ML 10ML VIAL ONE ×2 (06:38→21:06)
[2017-12-11 07:01] LABS: PROTHROMBIN TIME (PATIENT) 48.7 SEC (9.7-13.0)
[2017-12-11 07:10] LABS: INR 4.31 (0.83-1.09)
[2017-12-11] MEDS ORDERED: PT OWN MED DRAWER 7, Y5N ONE (10:56)
[2017-12-11] MEDS: FUROSEMIDE 40 MG TABLET (FP) PO SCH (10:59)
[2017-12-11] MEDS: MULTIVITAMINS (DAILY MVI) TABLET (FP) PO SCH (10:59)
[2017-12-11] MEDS: CARVEDILOL 25 MG TABLET (FP) PO SCH (10:59)
[2017-12-11] MEDS: CHOLECALCIFEROL (VITAMIN D3) 1,000 UNIT TABLET (FP) PO SCH (10:59)
[2017-12-11] MEDS: FOLIC ACID 1 MG TABLET (FP) PO SCH (10:59)
[2017-12-11] MEDS: METOLAZONE 5 MG TABLET PO SCH (10:59)
[2017-12-11] MEDS: ISOSORBIDE MONONITRATE 60 MG TAB.SR.24H (FP) PO SCH (10:59)
[2017-12-11] MEDS: RANITIDINE HCL 150 MG TABLET (FP) PO SCH (10:59)
[2017-12-11] MEDS: BUDESONIDE/FORMETEROL FUMARATE 160/4.5 mcg INHALER IH SCH ×2 (11:00→21:20)
[2017-12-11] MEDS: IRON POLYSACCHARIDES 150 MG CAPSULE PO SCH (11:00)
[2017-12-11] MEDS: NIFEdipine E.R. 90 MG TABLET (FP) PO SCH (11:00)
[2017-12-11] MEDS: SILVER SULFADIAZINE 1% TOP CREAM 50 GM JAR TP SCH ×2 (12:30→21:20)
--- NOTE | 2017-12-11 13:43 | PN ---
Progress Note (short form) - Note Progress Note: overall condition same comfortable bed bound no new issues Vital Signs Temp 98.3 F 12/11/17 11:15 Pulse 73 12/11/17 11:15 Resp 18 12/11/17 11:15 BP 135/56 12/11/17 11:15 Pulse Ox 99 12/11/17 09:00 Intake & Output 12/10/17 12/11/17 12/11/17 23:59 11:59 23:59 Intake Total 545 175 Output Total 1999 1500 Balance -1455 -1325 Weight 289 lb 8 oz Intake: Oral 545 175 Output: Urine 1999 1500 Sterling 1999 1500 Other: Voiding Method Indwelling Catheter Indwelling Catheter Bowel Movement No Weight Measurement Method [facility] Active Medications Acetaminophen (Tylenol -) 650 mg PO Q4H PRN PRN Reason: PAIN LEVEL 1-5 Last Admin: 12/11/17 05:06 Dose: 650 mg Acetaminophen (Tylenol -) 650 mg PO Q8H PRN PRN Reason: PAIN LEVEL 6-10 Last Admin: 12/10/17 06:33 Dose: 650 mg Atorvastatin Calcium (Lipitor -) 10 mg PO [facility] Last Admin: 12/10/17 21:10 Dose: 10 mg Bisacodyl (Dulcolax -) 5 mg PO [facility] Last Admin: 12/10/17 21:10 Dose: 5 mg Budesonide/Formoterol Fumarate (Symbicort 160/4.5mcg -) 1 puff IH BID [facility] Last Admin: 12/11/17 11:00 Dose: 1 puff Carvedilol (Coreg -) 25 mg PO DAILY [facility] Last Admin: 12/11/17 10:59 Dose: 25 mg Cholecalciferol (Vitamin D3 -) 1,000 unit PO DAILY [facility] Last Admin: 12/11/17 10:59 Dose: 1,000 unit Docusate Sodium (Colace -) 100 mg PO [facility] Last Admin: 12/10/17 21:09 Dose: 100 mg Epoetin [place] (Procrit -) 10,000 unit SQ MoWeFr@0800 [facility] Last Admin: 12/09/17 08:27 Dose: 10,000 unit Folic Acid (Folic Acid -) 1 mg PO DAILY [facility] Last Admin: 12/11/17 10:59 Dose: 1 mg Furosemide (Lasix -) 80 mg PO DAILY [facility] Last Admin: 12/11/17 10:59 Dose: 80 mg Gabapentin (Neurontin -) 100 mg PO TID [facility] Last Admin: 12/11/17 05:09 Dose: 100 mg Insulin Aspart (Novolog Vial) 5 units SQ TIDAC [facility] Last Admin: 12/11/17 12:00 Dose: 5 units Insulin Detemir (Levemir Vial) 33 units SQ HS [facility] Last Admin: 12/10/17 21:10 Dose: 33 units Isosorbide Mononitrate (Imdur -) 60 mg PO DAILY [facility] Last Admin: 12/11/17 10:59 Dose: 60 mg Lactulose (Cephulac (Oral Use)) 30 gm PO HS [facility] Last Admin: 12/10/17 21:09 Dose: Not Given Metolazone (Zaroxolyn -) 5 mg PO DAILY [facility] Last Admin: 12/11/17 10:59 Dose: 5 mg Metoprolol Tartrate (Lopressor -) 50 mg PO TID [facility] Last Admin: 12/11/17 05:06 Dose: 50 mg Multivitamins/Minerals/Vitamin C (Tab-A-Vit -) 1 tab PO DAILY [facility] Last Admin: 12/11/17 10:59 Dose: 1 tab Nifedipine (Procardia Xl -) 90 mg PO DAILY [facility] Last Admin: 12/11/17 11:00 Dose: 90 mg Oxycodone HCl (Roxicodone -) 5 mg PO Q6H PRN PRN Reason: PAIN LEVEL 6-10 Phytonadione ([place] Injection -) 5 mg IVPB ONCE ONE Stop: 12/11/17 13:42 Polysaccharide Iron Complex (Niferex-150 -) 150 mg PO DAILY [facility] Last Admin: 12/11/17 11:00 Dose: 150 mg Ranitidine HCl (Zantac -) 150 mg PO DAILY [facility] Last Admin: 12/11/17 10:59 Dose: 150 mg Silver Sulfadiazine (Silvadene -) 1 applic TP BID [facility] Last Admin: 12/11/17 12:30 Dose: 1 applic CBC, BMP 12/10/17 08:15 12/10/17 08:15 Physical Examination Conscious and cooperative. No distress. Morbidly obese Eyes: Yes: Conjunctiva Clear Neck: Yes: Supple Cardiovascular: No: Regular Rate and Rhythm Respiratory: Yes: Diminished Gastrointestinal: Yes: Abdomen, Obese Edema: LLE: 1+, RLE: 1+ Neurological: Yes: Alert Psychiatric: Yes: Alert stage II sacral decubitus Assessment/Plan h/h stable continue present care await inr to come down access being planned discussed with Dr. Lee also. will follow. Problem List - Problems (1) Anemia requiring transfusions Code(s): D64.9 - ANEMIA, UNSPECIFIED (2) Encounter regarding vascular access for dialysis for end-stage renal disease Code(s): N18.6 - END STAGE RENAL DISEASE; Z99.2 - DEPENDENCE ON RENAL DIALYSIS (3) Afib Code(s): I48.91 - UNSPECIFIED ATRIAL FIBRILLATION Qualifiers: Atrial fibrillation type: persistent Qualified Code(s): I48.1 - Persistent atrial fibrillation (4) CKD (chronic kidney disease) stage 5, GFR less than 15 ml/min Code(s): N18.5 - CHRONIC KIDNEY DISEASE, STAGE 5 (5) Diabetes mellitus Code(s): E11.9 - TYPE 2 DIABETES MELLITUS WITHOUT COMPLICATIONS Qualifiers: Chronic kidney disease stage: unspecified stage (6) Functional quadriplegia Code(s): R53.2 - FUNCTIONAL QUADRIPLEGIA (7) Morbid obesity Code(s): E66.01 - MORBID (SEVERE) OBESITY DUE TO EXCESS CALORIES
[2017-12-11] MEDS ORDERED: PHYTONADIONE 10 MG/1 ML AMP IVPB ONE (14:00)
--- NOTE | 2017-12-11 14:37 | PN ---
Progress Note, Physician History of Present Illness: Pt seen and examined at bedside. She is awake and alert. She is able to lay down flat without shortness of breath. - Current Medication List Current Medications: Active Medications Acetaminophen (Tylenol -) 650 mg PO Q4H PRN PRN Reason: PAIN LEVEL 1-5 Last Admin: 12/11/17 05:06 Dose: 650 mg Acetaminophen (Tylenol -) 650 mg PO Q8H PRN PRN Reason: PAIN LEVEL 6-10 Last Admin: 12/10/17 06:33 Dose: 650 mg Atorvastatin Calcium (Lipitor -) 10 mg PO HS [facility] Last Admin: 12/10/17 21:10 Dose: 10 mg Bisacodyl (Dulcolax -) 5 mg PO HS [facility] Last Admin: 12/10/17 21:10 Dose: 5 mg Budesonide/Formoterol Fumarate (Symbicort 160/4.5mcg -) 1 puff IH BID [facility] Last Admin: 12/11/17 11:00 Dose: 1 puff Carvedilol (Coreg -) 25 mg PO DAILY [facility] Last Admin: 12/11/17 10:59 Dose: 25 mg Cholecalciferol (Vitamin D3 -) 1,000 unit PO DAILY [facility] Last Admin: 12/11/17 10:59 Dose: 1,000 unit Docusate Sodium (Colace -) 100 mg PO HS [facility] Last Admin: 12/10/17 21:09 Dose: 100 mg Epoetin [place] (Procrit -) 10,000 unit SQ MoWeFr@0800 [facility] Last Admin: 12/09/17 08:27 Dose: 10,000 unit Folic Acid (Folic Acid -) 1 mg PO DAILY [facility] Last Admin: 12/11/17 10:59 Dose: 1 mg Furosemide (Lasix -) 80 mg PO DAILY [facility] Last Admin: 12/11/17 10:59 Dose: 80 mg Gabapentin (Neurontin -) 100 mg PO TID [facility] Last Admin: 12/11/17 05:09 Dose: 100 mg Insulin Aspart (Novolog Vial) 5 units SQ TIDAC [facility] Last Admin: 12/11/17 12:00 Dose: 5 units Insulin Detemir (Levemir Vial) 33 units SQ HS [facility] Last Admin: 12/10/17 21:10 Dose: 33 units Isosorbide Mononitrate (Imdur -) 60 mg PO DAILY [facility] Last Admin: 12/11/17 10:59 Dose: 60 mg Lactulose (Cephulac (Oral Use)) 30 gm PO HS [facility] Last Admin: 12/10/17 21:09 Dose: Not Given Metolazone (Zaroxolyn -) 5 mg PO DAILY [facility] Last Admin: 12/11/17 10:59 Dose: 5 mg Metoprolol Tartrate (Lopressor -) 50 mg PO TID [facility] Last Admin: 12/11/17 05:06 Dose: 50 mg Multivitamins/Minerals/Vitamin C (Tab-A-Vit -) 1 tab PO DAILY [facility] Last Admin: 12/11/17 10:59 Dose: 1 tab Nifedipine (Procardia Xl -) 90 mg PO DAILY [facility] Last Admin: 12/11/17 11:00 Dose: 90 mg Oxycodone HCl (Roxicodone -) 5 mg PO Q6H PRN PRN Reason: PAIN LEVEL 6-10 Polysaccharide Iron Complex (Niferex-150 -) 150 mg PO DAILY [facility] Last Admin: 12/11/17 11:00 Dose: 150 mg Ranitidine HCl (Zantac -) 150 mg PO DAILY [facility] Last Admin: 12/11/17 10:59 Dose: 150 mg Silver Sulfadiazine (Silvadene -) 1 applic TP BID [facility] Last Admin: 12/11/17 12:30 Dose: 1 applic - Objective Vital Signs: Vital Signs Temperature 98.0 F 12/11/17 13:59 Pulse Rate 76 12/11/17 13:59 Respiratory Rate 18 12/11/17 11:15 Blood Pressure 148/63 12/11/17 13:59 O2 Sat by Pulse Oximetry (%) 99 12/11/17 09:00 Constitutional: Yes: Calm Eyes: Yes: Conjunctiva Clear Cardiovascular: Yes: S1, S2 Respiratory: Yes: CTA Bilaterally, On Nasal O2 Gastrointestinal: Yes: Soft, Abdomen, Obese Genitourinary: Yes: Sterling Present Musculoskeletal: Yes: WNL Edema: Yes Edema: LLE: 1+, RLE: 1+ Neurological: Yes: Oriented Psychiatric: Yes: Oriented Labs: CBC, BMP 12/10/17 08:15 12/10/17 08:15 INR, PTT INR 4.31 (0.83-1.09) H* 12/11/17 06:30 Problem List - Problems (1) Anemia requiring transfusions Code(s): D64.9 - ANEMIA, UNSPECIFIED (2) Afib Code(s): I48.91 - UNSPECIFIED ATRIAL FIBRILLATION Qualifiers: Atrial fibrillation type: persistent Qualified Code(s): I48.1 - Persistent atrial fibrillation (3) Anemia Code(s): D64.9 - ANEMIA, UNSPECIFIED Qualifiers: Anemia type: unspecified type Qualified Code(s): D64.9 - Anemia, unspecified (4) CHF (congestive heart failure) Code(s): I50.9 - HEART FAILURE, UNSPECIFIED (5) CHF (congestive heart failure) Code(s): I50.9 - HEART FAILURE, UNSPECIFIED (6) CKD (chronic kidney disease) Code(s): N18.9 - CHRONIC KIDNEY DISEASE, UNSPECIFIED Qualifiers: Chronic kidney disease stage: unspecified stage Qualified Code(s): N18.9 - Chronic kidney disease, unspecified (7) CKD (chronic kidney disease) stage 5, GFR less than 15 ml/min Code(s): N18.5 - CHRONIC KIDNEY DISEASE, STAGE 5 Assessment/Plan Current Medications Generic Name Dose Route Start Last Admin Trade Name Freq PRN Reason Stop Dose Admin Acetaminophen 650 mg 12/07/17 22:39 12/11/17 05:06 Tylenol - PO 650 mg Q4H PRN Administration PAIN LEVEL 1-5 Acetaminophen 650 mg 12/08/17 05:12 12/10/17 06:33 Tylenol - PO 650 mg Q8H PRN Administration PAIN LEVEL 6-10 Atorvastatin Calcium 10 mg 12/08/17 22:00 12/10/17 21:10 Lipitor - PO 10 mg HS [facility] Administration Bisacodyl 5 mg 12/08/17 22:00 12/10/17 21:10 Dulcolax - PO 5 mg HS [facility] Administration Budesonide/Formoterol Fumarate 1 puff 12/08/17 10:00 12/11/17 11:00 Symbicort 160/4.5mcg - IH 1 puff BID [facility] Administration Carvedilol 25 mg 12/08/17 10:00 12/11/17 10:59 Coreg - PO 25 mg DAILY [facility] Administration Cholecalciferol 1,000 unit 12/08/17 10:00 12/11/17 10:59 Vitamin D3 - PO 1,000 unit DAILY [facility] Administration Docusate Sodium 100 mg 12/08/17 22:00 12/10/17 21:09 Colace - PO 100 mg HS [facility] Administration Epoetin [place] 10,000 unit 12/08/17 08:00 12/09/17 08:27 Procrit - SQ 10,000 unit MoWeFr@0800 [facility] Administration Folic Acid 1 mg 12/08/17 10:00 12/11/17 10:59 Folic Acid - PO 1 mg DAILY [facility] Administration Furosemide 80 mg 12/11/17 10:00 12/11/17 10:59 Lasix - PO 80 mg DAILY [facility] Administration Gabapentin 100 mg 12/07/17 22:45 12/11/17 05:09 Neurontin - PO 100 mg TID [facility] Administration Insulin Aspart 5 units 12/08/17 07:00 12/11/17 12:00 Novolog Vial SQ 5 units TIDAC [facility] Administration Insulin Detemir 33 units 12/08/17 22:00 12/10/17 21:10 Levemir Vial SQ 33 units HS [facility] Administration Isosorbide Mononitrate 60 mg 12/08/17 10:00 12/11/17 10:59 Imdur - PO 60 mg DAILY [facility] Administration Lactulose 30 gm 12/08/17 22:00 12/10/17 21:09 Cephulac (Oral Use) PO Not Given [facility] Metolazone 5 mg 12/08/17 10:00 12/11/17 10:59 Zaroxolyn - PO 5 mg DAILY [facility] Administration Metoprolol Tartrate 50 mg 12/08/17 06:00 12/11/17 05:06 Lopressor - PO 50 mg TID [facility] Administration Multivitamins/Minerals/Vitamin C 1 tab 12/08/17 10:00 12/11/17 10:59 Tab-A-Vit - PO 1 tab DAILY [facility] Administration Nifedipine 90 mg 12/08/17 10:00 12/11/17 11:00 Procardia Xl - PO 90 mg DAILY [facility] Administration Oxycodone HCl 5 mg 12/11/17 13:40 Roxicodone - PO Q6H PRN PAIN LEVEL 6-10 Polysaccharide Iron Complex 150 mg 12/08/17 10:00 12/11/17 11:00 Niferex-150 - PO 150 mg DAILY [facility] Administration Ranitidine HCl 150 mg 12/08/17 10:00 09/02/18 10:59 Zantac - PO 150 mg DAILY [facility] Administration Silver Sulfadiazine 1 applic 12/08/17 10:00 12/11/17 12:30 Silvadene - TP 1 applic BID [facility] Administration Impression 1. CKD 2. obesity 3. hyperlipidemia 4. HTN 5. DM 6. CHF 7. CAD 8. anemia 9. a-fib 10. iron deficiency 11. r/o TIA 12. hyperkalemia Plan - check bmp - monitor coags - will start HD once permacath placed - cont with lasix, doses adjusted - check sodium level - will follow - discussed with medical team
[2017-12-11] MEDS: oxyCODONE HCL 5 MG TABLET PO PRN ×2 (14:42→21:23)
[2017-12-11] MEDS: ATORVASTATIN CA 10 MG TABLET (FP) PO SCH (21:18)
[2017-12-11] MEDS: BISACODYL 5 MG TABLET.DR (FP) PO SCH (21:18)
[2017-12-11] MEDS: DOCUSATE SODIUM 100 MG CAPSULE (FP) PO SCH (21:18)
[2017-12-11] MEDS: LACTULOSE 20 GM/30 ML UDC (FOR ORAL USE ONLY) PO SCH (21:19)
[2017-12-11] MEDS: INSULIN (LEVEMIR) 100 UNITS/ML UNITS SQ SCH (21:19)
[2017-12-12] MEDS: oxyCODONE HCL 5 MG TABLET PO PRN ×2 (06:41→11:16)
[2017-12-12] MEDS: ACETAMINOPHEN 325 MG TABLET (FP) PO PRN ×2 (06:42→11:16)
[2017-12-12] MEDS: INSULIN (NOVOLOG) ASPART 100 UNITS/ML 10ML VIAL SQ SCH ×3 (06:43→16:41)
[2017-12-12] MEDS: METOPROLOL TARTRATE 50 MG TABLET (FP) PO SCH ×3 (06:43→22:29)
[2017-12-12] MEDS: GABAPENTIN 100 MG CAPSULE (FP) PO SCH ×3 (06:43→22:29)
[2017-12-12] MEDS: EPOETIN ALFA 10,000 UNIT/1 ML VIAL SQ SCH (07:49)
[2017-12-12 08:28] LABS: BASO % 0.3 % (0-2.0); EOS % 1.8 % (0-4.5); HEMATOCRIT 22.5 % (32.4-45.2); HEMOGLOBIN 7.3 GM/dL (10.7-15.3); LYMPH % 12.1 % (8-40); MCH 28.7 pg (25.7-33.7); MCHC 32.4 g/dl (32.0-36.0); MEAN CELL VOLUME 88.6 fl (80-96); MEAN PLT VOLUME 8.6 fl (7.5-11.1); MONO % 6.5 % (3.8-10.2); NEUT % 79.3 % (42.8-82.8); PLATELET COUNT 140 K/MM3 (134-434); RBC 2.54 M/mm3 (3.60-5.2); RDW 16.1 % (11.6-15.6); WHITE BLOOD COUNT 14.9 K/mm3 (4.0-10.0)
[2017-12-12 08:36] LABS: INR 1.17 (0.83-1.09); PROTHROMBIN TIME (PATIENT) 13.2 SEC (9.7-13.0)
[2017-12-12 09:02] LABS: CHLORIDE 109 mmol/L (98-107); POTASSIUM 4.6 mmol/L (3.5-5.1); SODIUM 153 mmol/L (136-145)
[2017-12-12 09:14] LABS: ALBUMIN 2.7 g/dl (3.4-5.0); ALK PHOS 40 U/L (45-117); ANION GAP 12 MMOL/L (8-16); BILIRUBIN,TOTAL 0.3 mg/dL (0.2-1.0); CALCIUM 8.1 mg/dL (8.5-10.1); CO2 32 mmol/L (21-32); CREATININE 3.9 mg/dL (0.55-1.02); GLUCOSE,RANDOM 108 mg/dL (74-106); SGOT/AST 14 U/L (15-37); SGPT/ALT 12 U/L (12-78); TOT PROT 5.6 g/dl (6.4-8.2)
[2017-12-12 09:21] LABS: BLOOD UREA NITROGEN 185 mg/dL (7-18)
[2017-12-12] MEDS ORDERED: FUROSEMIDE 40 MG/4 ML INJECTABLE VIAL IVPUSH ONE (09:40)
[2017-12-12] MEDS: RANITIDINE HCL 150 MG TABLET (FP) PO SCH (10:28)
[2017-12-12] MEDS: CHOLECALCIFEROL (VITAMIN D3) 1,000 UNIT TABLET (FP) PO SCH (10:28)
[2017-12-12] MEDS: FOLIC ACID 1 MG TABLET (FP) PO SCH (10:28)
[2017-12-12] MEDS: MULTIVITAMINS (DAILY MVI) TABLET (FP) PO SCH (10:28)
[2017-12-12] MEDS: ISOSORBIDE MONONITRATE 60 MG TAB.SR.24H (FP) PO SCH (10:28)
[2017-12-12] MEDS: NIFEdipine E.R. 90 MG TABLET (FP) PO SCH (10:29)
[2017-12-12] MEDS: CARVEDILOL 25 MG TABLET (FP) PO SCH (10:29)
[2017-12-12] MEDS: BUDESONIDE/FORMETEROL FUMARATE 160/4.5 mcg INHALER IH SCH ×2 (10:29→22:32)
[2017-12-12] MEDS: FUROSEMIDE 40 MG TABLET (FP) PO SCH (10:29)
[2017-12-12] MEDS: METOLAZONE 5 MG TABLET PO SCH (10:29)
[2017-12-12] MEDS: IRON POLYSACCHARIDES 150 MG CAPSULE PO SCH (10:29)
[2017-12-12] MEDS: SILVER SULFADIAZINE 1% TOP CREAM 50 GM JAR TP SCH ×2 (10:55→22:33)
--- NOTE | 2017-12-12 11:33 | PN ---
Progress Note (short form) - Note Progress Note: Condition same requesting pain meds counts low- transfuse today vit k given yesterday as inr was still high -- normalized today Vital Signs Temp 98.2 F 12/12/17 06:00 Pulse 69 12/12/17 06:00 Resp 20 12/12/17 06:00 BP 126/59 12/12/17 06:00 Pulse Ox 99 12/11/17 21:00 Intake & Output 12/11/17 12/11/17 12/12/17 11:59 23:59 11:59 Intake Total 175 350 500 Output Total 1500 1000 700 Balance -1325 -650 -200 Weight 289 lb 8 oz 303 lb 6 oz Intake: IVPB 50 Oral 175 300 500 Output: Urine 1500 1000 700 Sterling 1500 1000 700 Other: Voiding Method Indwelling Catheter Indwelling Catheter Bowel Movement No Weight Measurement Method Built in Bedscale Built in Bedscale Active Medications Acetaminophen (Tylenol -) 650 mg PO Q4H PRN PRN Reason: PAIN LEVEL 1-5 Last Admin: 12/12/17 11:16 Dose: 650 mg Acetaminophen (Tylenol -) 650 mg PO Q8H PRN PRN Reason: PAIN LEVEL 6-10 Last Admin: 12/12/17 06:42 Dose: 650 mg Atorvastatin Calcium (Lipitor -) 10 mg PO [facility] Last Admin: 12/11/17 21:18 Dose: 10 mg Bisacodyl (Dulcolax -) 5 mg PO [facility] Last Admin: 12/11/17 21:18 Dose: 5 mg Budesonide/Formoterol Fumarate (Symbicort 160/4.5mcg -) 1 puff IH BID [facility] Last Admin: 12/12/17 10:29 Dose: 1 puff Carvedilol (Coreg -) 25 mg PO DAILY [facility] Last Admin: 12/12/17 10:29 Dose: 25 mg Cholecalciferol (Vitamin D3 -) 1,000 unit PO DAILY [facility] Last Admin: 12/12/17 10:28 Dose: 1,000 unit Docusate Sodium (Colace -) 100 mg PO [facility] Last Admin: 12/11/17 21:18 Dose: 100 mg Epoetin [place] (Procrit -) 10,000 unit SQ MoWeFr@0800 [facility] Last Admin: 12/12/17 07:49 Dose: 10,000 unit Folic Acid (Folic Acid -) 1 mg PO DAILY [facility] Last Admin: 12/12/17 10:28 Dose: 1 mg Furosemide (Lasix -) 80 mg PO DAILY [facility] Last Admin: 12/12/17 10:29 Dose: 80 mg Gabapentin (Neurontin -) 100 mg PO TID [facility] Last Admin: 12/12/17 06:43 Dose: 100 mg Insulin Aspart (Novolog Vial) 5 units SQ TIDAC [facility] Last Admin: 12/12/17 11:12 Dose: 5 units Insulin Detemir (Levemir Vial) 33 units SQ [facility] Last Admin: 12/11/17 21:19 Dose: 33 units Isosorbide Mononitrate (Imdur -) 60 mg PO DAILY [facility] Last Admin: 12/12/17 10:28 Dose: 60 mg Lactulose (Cephulac (Oral Use)) 30 gm PO HS [facility] Last Admin: 12/11/17 21:19 Dose: 30 gm Metolazone (Zaroxolyn -) 5 mg PO DAILY [facility] Last Admin: 12/12/17 10:29 Dose: 5 mg Metoprolol Tartrate (Lopressor -) 50 mg PO TID [facility] Last Admin: 12/12/17 06:43 Dose: 50 mg Multivitamins/Minerals/Vitamin C (Tab-A-Vit -) 1 tab PO DAILY [facility] Last Admin: 12/12/17 10:28 Dose: 1 tab Nifedipine (Procardia Xl -) 90 mg PO DAILY [facility] Last Admin: 12/12/17 10:29 Dose: 90 mg Oxycodone HCl (Roxicodone -) 5 mg PO Q6H PRN PRN Reason: PAIN LEVEL 6-10 Last Admin: 12/12/17 11:16 Dose: 5 mg Polysaccharide Iron Complex (Niferex-150 -) 150 mg PO DAILY [facility] Last Admin: 12/12/17 10:29 Dose: 150 mg Ranitidine HCl (Zantac -) 150 mg PO DAILY [facility] Last Admin: 12/12/17 10:28 Dose: 150 mg Silver Sulfadiazine (Silvadene -) 1 applic TP BID [facility] Last Admin: 12/12/17 10:55 Dose: 1 applic CBC, BMP 12/12/17 07:00 12/12/17 07:00 Physical Examination Conscious and cooperative. Morbidly obese Eyes: Yes: Conjunctiva Clear Neck: Yes: Supple Cardiovascular: No: Regular Rate and Rhythm Respiratory: Yes: Diminished Gastrointestinal: Yes: Abdomen, Obese Edema: LLE: 1+, RLE: 1+ Neurological: Yes: Alert Psychiatric: Yes: Alert stage II sacral decubitus Assessment/Plan plan as mentioned transfuse vascular to follow Problem List - Problems (1) Anemia requiring transfusions Code(s): D64.9 - ANEMIA, UNSPECIFIED (2) Encounter regarding vascular access for dialysis for end-stage renal disease Code(s): N18.6 - END STAGE RENAL DISEASE; Z99.2 - DEPENDENCE ON RENAL DIALYSIS (3) Afib Code(s): I48.91 - UNSPECIFIED ATRIAL FIBRILLATION Qualifiers: Atrial fibrillation type: persistent Qualified Code(s): I48.1 - Persistent atrial fibrillation (4) CKD (chronic kidney disease) stage 5, GFR less than 15 ml/min Code(s): N18.5 - CHRONIC KIDNEY DISEASE, STAGE 5 (5) Diabetes mellitus Code(s): E11.9 - TYPE 2 DIABETES MELLITUS WITHOUT COMPLICATIONS Qualifiers: Chronic kidney disease stage: unspecified stage (6) Functional quadriplegia Code(s): R53.2 - FUNCTIONAL QUADRIPLEGIA (7) Morbid obesity Code(s): E66.01 - MORBID (SEVERE) OBESITY DUE TO EXCESS CALORIES
--- NOTE | 2017-12-12 12:37 | PN ---
Progress Note, Physician History of Present Illness: Pt seen and examined at bedside. She is awake and alert. She denies shortness of breath. - Current Medication List Current Medications: Active Medications Acetaminophen (Tylenol -) 650 mg PO Q4H PRN PRN Reason: PAIN LEVEL 1-5 Last Admin: 12/12/17 11:16 Dose: 650 mg Acetaminophen (Tylenol -) 650 mg PO Q8H PRN PRN Reason: PAIN LEVEL 6-10 Last Admin: 12/12/17 06:42 Dose: 650 mg Atorvastatin Calcium (Lipitor -) 10 mg PO HS [facility] Last Admin: 12/11/17 21:18 Dose: 10 mg Bisacodyl (Dulcolax -) 5 mg PO HS [facility] Last Admin: 12/11/17 21:18 Dose: 5 mg Budesonide/Formoterol Fumarate (Symbicort 160/4.5mcg -) 1 puff IH BID [facility] Last Admin: 12/12/17 10:29 Dose: 1 puff Carvedilol (Coreg -) 25 mg PO DAILY [facility] Last Admin: 12/12/17 10:29 Dose: 25 mg Cholecalciferol (Vitamin D3 -) 1,000 unit PO DAILY [facility] Last Admin: 12/12/17 10:28 Dose: 1,000 unit Docusate Sodium (Colace -) 100 mg PO HS [facility] Last Admin: 12/11/17 21:18 Dose: 100 mg Epoetin [place] (Procrit -) 10,000 unit SQ MoWeFr@0800 [facility] Last Admin: 12/12/17 07:49 Dose: 10,000 unit Folic Acid (Folic Acid -) 1 mg PO DAILY [facility] Last Admin: 12/12/17 10:28 Dose: 1 mg Furosemide (Lasix -) 80 mg PO DAILY [facility] Last Admin: 12/12/17 10:29 Dose: 80 mg Gabapentin (Neurontin -) 100 mg PO TID [facility] Last Admin: 12/12/17 06:43 Dose: 100 mg Insulin Aspart (Novolog Vial) 5 units SQ TIDAC [facility] Last Admin: 12/12/17 11:12 Dose: 5 units Insulin Detemir (Levemir Vial) 33 units SQ HS [facility] Last Admin: 12/11/17 21:19 Dose: 33 units Isosorbide Mononitrate (Imdur -) 60 mg PO DAILY [facility] Last Admin: 12/12/17 10:28 Dose: 60 mg Lactulose (Cephulac (Oral Use)) 30 gm PO HS [facility] Last Admin: 12/11/17 21:19 Dose: 30 gm Metolazone (Zaroxolyn -) 5 mg PO DAILY [facility] Last Admin: 12/12/17 10:29 Dose: 5 mg Metoprolol Tartrate (Lopressor -) 50 mg PO TID [facility] Last Admin: 12/12/17 06:43 Dose: 50 mg Multivitamins/Minerals/Vitamin C (Tab-A-Vit -) 1 tab PO DAILY [facility] Last Admin: 12/12/17 10:28 Dose: 1 tab Nifedipine (Procardia Xl -) 90 mg PO DAILY [facility] Last Admin: 12/12/17 10:29 Dose: 90 mg Oxycodone HCl (Roxicodone -) 5 mg PO Q6H PRN PRN Reason: PAIN LEVEL 6-10 Last Admin: 12/12/17 11:16 Dose: 5 mg Polysaccharide Iron Complex (Niferex-150 -) 150 mg PO DAILY [facility] Last Admin: 12/12/17 10:29 Dose: 150 mg Ranitidine HCl (Zantac -) 150 mg PO DAILY [facility] Last Admin: 12/12/17 10:28 Dose: 150 mg Silver Sulfadiazine (Silvadene -) 1 applic TP BID [facility] Last Admin: 12/12/17 10:55 Dose: 1 applic - Objective Vital Signs: Vital Signs Temperature 98.2 F 12/12/17 06:00 Pulse Rate 69 12/12/17 06:00 Respiratory Rate 20 12/12/17 09:00 Blood Pressure 126/59 12/12/17 06:00 O2 Sat by Pulse Oximetry (%) 99 12/12/17 09:00 Constitutional: Yes: Calm Eyes: Yes: Conjunctiva Clear HENT: Yes: Atraumatic Cardiovascular: Yes: S1, S2 Respiratory: Yes: On Nasal O2 Gastrointestinal: Yes: Normal Bowel Sounds, Soft, Abdomen, Obese Genitourinary: Yes: Sterling Present Musculoskeletal: Yes: Muscle Weakness Edema: Yes Edema: LLE: 1+, RLE: 1+ Neurological: Yes: Oriented Psychiatric: Yes: Oriented Labs: CBC, BMP 12/12/17 07:00 12/12/17 07:00 INR, PTT INR 1.17 (0.83-1.09) H 12/12/17 07:00 Problem List - Problems (1) Anemia requiring transfusions Code(s): D64.9 - ANEMIA, UNSPECIFIED (2) Afib Code(s): I48.91 - UNSPECIFIED ATRIAL FIBRILLATION Qualifiers: Atrial fibrillation type: persistent Qualified Code(s): I48.1 - Persistent atrial fibrillation (3) Anemia Code(s): D64.9 - ANEMIA, UNSPECIFIED Qualifiers: Anemia type: unspecified type Qualified Code(s): D64.9 - Anemia, unspecified (4) CHF (congestive heart failure) Code(s): I50.9 - HEART FAILURE, UNSPECIFIED (5) CHF (congestive heart failure) Code(s): I50.9 - HEART FAILURE, UNSPECIFIED (6) CKD (chronic kidney disease) Code(s): N18.9 - CHRONIC KIDNEY DISEASE, UNSPECIFIED Qualifiers: Chronic kidney disease stage: unspecified stage Qualified Code(s): N18.9 - Chronic kidney disease, unspecified (7) CKD (chronic kidney disease) stage 5, GFR less than 15 ml/min Code(s): N18.5 - CHRONIC KIDNEY DISEASE, STAGE 5 Assessment/Plan Current Medications Generic Name Dose Route Start Last Admin Trade Name Freq PRN Reason Stop Dose Admin Acetaminophen 650 mg 12/07/17 22:39 12/12/17 11:16 Tylenol - PO 650 mg Q4H PRN Administration PAIN LEVEL 1-5 Acetaminophen 650 mg 12/08/17 05:12 12/12/17 06:42 Tylenol - PO 650 mg Q8H PRN Administration PAIN LEVEL 6-10 Atorvastatin Calcium 10 mg 12/08/17 22:00 12/11/17 21:18 Lipitor - PO 10 mg HS [facility] Administration Bisacodyl 5 mg 12/08/17 22:00 12/11/17 21:18 Dulcolax - PO 5 mg HS [facility] Administration Budesonide/Formoterol Fumarate 1 puff 12/08/17 10:00 12/12/17 10:29 Symbicort 160/4.5mcg - IH 1 puff BID [facility] Administration Carvedilol 25 mg 12/08/17 10:00 12/12/17 10:29 Coreg - PO 25 mg DAILY [facility] Administration Cholecalciferol 1,000 unit 12/08/17 10:00 12/12/17 10:28 Vitamin D3 - PO 1,000 unit DAILY [facility] Administration Docusate Sodium 100 mg 12/08/17 22:00 12/11/17 21:18 Colace - PO 100 mg HS [facility] Administration Epoetin [place] 10,000 unit 12/08/17 08:00 12/12/17 07:49 Procrit - SQ 10,000 unit MoWeFr@0800 [facility] Administration Folic Acid 1 mg 12/08/17 10:00 12/12/17 10:28 Folic Acid - PO 1 mg DAILY [facility] Administration Furosemide 80 mg 12/11/17 10:00 12/12/17 10:29 Lasix - PO 80 mg DAILY [facility] Administration Gabapentin 100 mg 12/07/17 22:45 12/12/17 06:43 Neurontin - PO 100 mg TID [facility] Administration Insulin Aspart 5 units 12/08/17 07:00 12/12/17 11:12 Novolog Vial SQ 5 units TIDAC [facility] Administration Insulin Detemir 33 units 12/08/17 22:00 12/11/17 21:19 Levemir Vial SQ 33 units HS [facility] Administration Isosorbide Mononitrate 60 mg 12/08/17 10:00 12/12/17 10:28 Imdur - PO 60 mg DAILY [facility] Administration Lactulose 30 gm 12/08/17 22:00 12/11/17 21:19 Cephulac (Oral Use) PO 30 gm HS [facility] Administration Metolazone 5 mg 12/08/17 10:00 12/12/17 10:29 Zaroxolyn - PO 5 mg DAILY [facility] Administration Metoprolol Tartrate 50 mg 12/08/17 06:00 12/12/17 06:43 Lopressor - PO 50 mg TID [facility] Administration Multivitamins/Minerals/Vitamin C 1 tab 12/08/17 10:00 12/12/17 10:28 Tab-A-Vit - PO 1 tab DAILY [facility] Administration Nifedipine 90 mg 12/08/17 10:00 12/12/17 10:29 Procardia Xl - PO 90 mg DAILY [facility] Administration Oxycodone HCl 5 mg 12/11/17 13:40 12/12/17 11:16 Roxicodone - PO 5 mg Q6H PRN Administration PAIN LEVEL 6-10 Polysaccharide Iron Complex 150 mg 12/08/17 10:00 12/12/17 10:29 Niferex-150 - PO 150 mg DAILY [facility] Administration Ranitidine HCl 150 mg 12/08/17 10:00 12/12/17 10:28 Zantac - PO 150 mg DAILY [facility] Administration Silver Sulfadiazine 1 applic 12/08/17 10:00 12/12/17 10:55 Silvadene - TP 1 applic BID [facility] Administration Laboratory Tests 12/10/17 08:15 Iron 40 TIBC 225 L Iron Saturation 18 Impression 1. CKD 2. obesity 3. hyperlipidemia 4. HTN 5. DM 6. CHF 7. CAD 8. anemia 9. a-fib 10. iron deficiency 11. r/o TIA 12. hyperkalemia Plan - vascular follow up for permacath placement - will start HD once permacath placed - pt will also need fistula if possible - encourage free water intake - will follow - start iron supplements - monitor hg - cont epogen
[2017-12-12] MEDS ORDERED: FUROSEMIDE 40 MG/4 ML INJECTABLE VIAL ONE (16:37)
[2017-12-12] MEDS: LACTULOSE 20 GM/30 ML UDC (FOR ORAL USE ONLY) PO SCH ×2 (22:02→22:30)
[2017-12-12] MEDS: BISACODYL 5 MG TABLET.DR (FP) PO SCH (22:29)
[2017-12-12] MEDS: DOCUSATE SODIUM 100 MG CAPSULE (FP) PO SCH (22:29)
[2017-12-12] MEDS: ATORVASTATIN CA 10 MG TABLET (FP) PO SCH (22:29)
[2017-12-12] MEDS: INSULIN (LEVEMIR) 100 UNITS/ML UNITS SQ SCH (22:35)
[2017-12-13] MEDS: GABAPENTIN 100 MG CAPSULE (FP) PO SCH ×3 (06:15→22:07)
[2017-12-13] MEDS: oxyCODONE HCL 5 MG TABLET PO PRN ×3 (06:18→22:21)
[2017-12-13] MEDS: INSULIN (NOVOLOG) ASPART 100 UNITS/ML 10ML VIAL SQ SCH ×3 (06:23→17:11)
[2017-12-13] MEDS: METOPROLOL TARTRATE 50 MG TABLET (FP) PO SCH ×3 (06:27→22:23)
[2017-12-13 08:30] LABS: BASO % 0.3 % (0-2.0); EOS % 0.4 % (0-4.5); HEMATOCRIT 24.5 % (32.4-45.2); HEMOGLOBIN 8.1 GM/dL (10.7-15.3); LYMPH % 11.3 % (8-40); MEAN CELL VOLUME 87.9 fl (80-96); MEAN PLT VOLUME 8.8 fl (7.5-11.1); MONO % 4.6 % (3.8-10.2); NEUT % 83.4 % (42.8-82.8); PLATELET COUNT 128 K/MM3 (134-434); RBC 2.79 M/mm3 (3.60-5.2); RDW 15.4 % (11.6-15.6); WHITE BLOOD COUNT 15.7 K/mm3 (4.0-10.0)
[2017-12-13 08:43] LABS: ALBUMIN 2.5 g/dl (3.4-5.0); ANION GAP 14 MMOL/L (8-16); CALCIUM 7.9 mg/dL (8.5-10.1); CHLORIDE 108 mmol/L (98-107); CO2 31 mmol/L (21-32); POTASSIUM 3.7 mmol/L (3.5-5.1); SODIUM 153 mmol/L (136-145)
[2017-12-13 08:49] LABS: ALK PHOS 42 U/L (45-117); BILIRUBIN,TOTAL 0.4 mg/dL (0.2-1.0); CREATININE 3.9 mg/dL (0.55-1.02); GLUCOSE,RANDOM 158 mg/dL (74-106); SGOT/AST 12 U/L (15-37); SGPT/ALT 14 U/L (12-78); TOT PROT 5.4 g/dl (6.4-8.2)
[2017-12-13 09:29] LABS: BLOOD UREA NITROGEN 184 mg/dL (7-18)
[2017-12-13] MEDS ORDERED: PT OWN MED DRAWER 7, Y5N ONE (10:27)
[2017-12-13] MEDS: RANITIDINE HCL 150 MG TABLET (FP) PO SCH (10:29)
[2017-12-13] MEDS: ACETAMINOPHEN 325 MG TABLET (FP) PO PRN (10:29)
[2017-12-13] MEDS: CHOLECALCIFEROL (VITAMIN D3) 1,000 UNIT TABLET (FP) PO SCH (10:30)
[2017-12-13] MEDS: MULTIVITAMINS (DAILY MVI) TABLET (FP) PO SCH (10:30)
[2017-12-13] MEDS: CARVEDILOL 25 MG TABLET (FP) PO SCH (10:30)
[2017-12-13] MEDS: FOLIC ACID 1 MG TABLET (FP) PO SCH (10:30)
[2017-12-13] MEDS: BUDESONIDE/FORMETEROL FUMARATE 160/4.5 mcg INHALER IH SCH ×2 (10:30→22:07)
[2017-12-13] MEDS: METOLAZONE 5 MG TABLET PO SCH (10:30)
[2017-12-13] MEDS: SILVER SULFADIAZINE 1% TOP CREAM 50 GM JAR TP SCH ×2 (10:31→22:29)
[2017-12-13] MEDS: ISOSORBIDE MONONITRATE 60 MG TAB.SR.24H (FP) PO SCH (10:31)
[2017-12-13] MEDS: IRON POLYSACCHARIDES 150 MG CAPSULE PO SCH (10:31)
[2017-12-13] MEDS: NIFEdipine E.R. 90 MG TABLET (FP) PO SCH (10:31)
--- NOTE | 2017-12-13 10:47 | SPA.PREOP ---
- PRE-OP NOTE Dx: ESRD Planned Procedure: permcath insertion Surgeon: Dr. Escamilla Last Vital Signs Temp Pulse Resp BP Pulse Ox 99.1 F 78 20 129/54 99 12/13/17 08:54 12/13/17 08:54 12/13/17 08:54 12/13/17 08:54 12/12/17 21:00 Lab Results WBC 15.7 K/mm3 (4.0-10.0) H 12/13/17 08:00 RBC 2.79 M/mm3 (3.60-5.2) L 12/13/17 08:00 Hgb 8.1 GM/dL (10.7-15.3) L 12/13/17 08:00 Hct 24.5 % (32.4-45.2) L 12/13/17 08:00 MCV 87.9 fl (80-96) 12/13/17 08:00 MCHC 33.0 g/dl (32.0-36.0) 12/13/17 08:00 RDW 15.4 % (11.6-15.6) 12/13/17 08:00 Plt Count 128 K/MM3 (134-434) L 12/13/17 08:00 Sodium 153 mmol/L (136-145) H 12/13/17 08:00 Potassium 3.7 mmol/L (3.5-5.1) 12/13/17 08:00 Chloride 108 mmol/L (98-107) H 12/13/17 08:00 Carbon Dioxide 31 mmol/L (21-32) 12/13/17 08:00 Anion Gap 14 MMOL/L (8-16) 12/13/17 08:00 BUN 184 mg/dL (7-18) H* 12/13/17 08:00 Creatinine 3.9 mg/dL (0.55-1.02) H 12/13/17 08:00 Random Glucose 158 mg/dL (74-106) H 12/13/17 08:00 Calcium 7.9 mg/dL (8.5-10.1) L 12/13/17 08:00 Blood Type O POSITIVE 12/12/17 09:55 Antibody Screen Negative 12/12/17 09:55 INR 1.17 (0.83-1.09) H 12/12/17 07:00 A/P: 72 yo female with ERSD, plan for Permacath tomorrow Pt seen and evaluated with Dr. Escamilla today and will plan for permcath placement tomorrow Npo after midnight, may take meds with sips of water INR normalized, continue to hold anticoagulation - ASSESSMENT/PLAN 1. Make NPO after midnight except po meds 2. GI/DVT PPX 3. Medical optimization / clearance
[2017-12-13] MEDS: FUROSEMIDE 40 MG TABLET (FP) PO SCH (10:59)
--- NOTE | 2017-12-13 12:03 | PN ---
Progress Note (short form) - Note Progress Note: pt awaiting to get permacath placed no SOB Vital Signs - 24 hr 12/12/17 12/12/17 12/13/17 21:00 22:00 06:00 Temperature 98.8 F 99.9 F H Pulse Rate 79 76 Respiratory 18 18 Rate Blood Pressure 143/62 122/54 O2 Sat by Pulse 99 Oximetry (%) 12/13/17 12/13/17 12/13/17 08:54 09:00 15:19 Temperature 99.1 F 98.7 F Pulse Rate 78 69 Respiratory 20 20 Rate Blood Pressure 129/54 121/53 O2 Sat by Pulse 99 Oximetry (%) Current Medications Generic Name Dose Route Start Last Admin Trade Name Freq PRN Reason Stop Dose Admin Acetaminophen 650 mg 12/07/17 22:39 12/13/17 10:29 Tylenol - PO 650 mg Q4H PRN Administration PAIN LEVEL 1-5 Acetaminophen 650 mg 12/08/17 05:12 12/12/17 06:42 Tylenol - PO 650 mg Q8H PRN Administration PAIN LEVEL 6-10 Atorvastatin Calcium 10 mg 12/08/17 22:00 12/12/17 22:29 Lipitor - PO 10 mg HS [facility] Administration Bisacodyl 5 mg 12/08/17 22:00 12/12/17 22:29 Dulcolax - PO 5 mg HS [facility] Administration Budesonide/Formoterol Fumarate 1 puff 12/08/17 10:00 12/13/17 10:30 Symbicort 160/4.5mcg - IH 1 puff BID [facility] Administration Carvedilol 25 mg 12/08/17 10:00 12/13/17 10:30 Coreg - PO 25 mg DAILY [facility] Administration Cholecalciferol 1,000 unit 12/08/17 10:00 12/13/17 10:30 Vitamin D3 - PO 1,000 unit DAILY [facility] Administration Docusate Sodium 100 mg 12/08/17 22:00 12/12/17 22:29 Colace - PO 100 mg HS [facility] Administration Epoetin [place] 10,000 unit 12/08/17 08:00 12/12/17 07:49 Procrit - SQ 10,000 unit [id number] [facility] Administration Folic Acid 1 mg 12/08/17 10:00 12/13/17 10:30 Folic Acid - PO 1 mg DAILY [facility] Administration Furosemide 80 mg 12/11/17 10:00 12/13/17 10:59 Lasix - PO 80 mg DAILY [facility] Administration Gabapentin 100 mg 12/07/17 22:45 12/13/17 14:00 Neurontin - PO 100 mg TID [facility] Administration Insulin Aspart 5 units 12/08/17 07:00 12/13/17 17:11 Novolog Vial SQ 5 units TIDAC [facility] Administration Insulin Detemir 33 units 12/08/17 22:00 12/12/17 22:35 Levemir Vial SQ 33 units HS [facility] Administration Isosorbide Mononitrate 60 mg 12/08/17 10:00 12/13/17 10:31 Imdur - PO 60 mg DAILY [facility] Administration Lactulose 30 gm 12/08/17 22:00 12/12/17 22:02 Cephulac (Oral Use) PO Not Given HS [facility] Metolazone 5 mg 12/08/17 10:00 12/13/17 10:30 Zaroxolyn - PO 5 mg DAILY [facility] Administration Metoprolol Tartrate 50 mg 12/08/17 06:00 12/13/17 14:00 Lopressor - PO 50 mg TID [facility] Administration Multivitamins/Minerals/Vitamin C 1 tab 12/08/17 10:00 12/13/17 10:30 Tab-A-Vit - PO 1 tab DAILY [facility] Administration Nifedipine 90 mg 12/08/17 10:00 12/13/17 10:31 Procardia Xl - PO 90 mg DAILY [facility] Administration Oxycodone HCl 5 mg 12/11/17 13:40 12/13/17 14:00 Roxicodone - PO 5 mg Q6H PRN Administration PAIN LEVEL 6-10 Polysaccharide Iron Complex 150 mg 12/08/17 10:00 12/13/17 10:31 Niferex-150 - PO 150 mg DAILY [facility] Administration Ranitidine HCl 150 mg 12/08/17 10:00 12/13/17 10:29 Zantac - PO 150 mg DAILY [facility] Administration Silver Sulfadiazine 1 applic 12/08/17 10:00 12/13/17 10:31 Silvadene - TP 1 applic BID [facility] Administration Laboratory Results - last 24 hr 12/07/17 12/12/17 12/12/17 15:10 09:55 17:49 WBC RBC Hgb Hct MCV MCH MCHC RDW Plt Count MPV Absolute Neuts (auto) Neutrophils % Lymphocytes % Monocytes % Eosinophils % Basophils % Nucleated RBC % Sodium Potassium Chloride Carbon Dioxide Anion Gap BUN Creatinine Creat Clearance w eGFR POC Glucometer 225 Random Glucose Calcium Total Bilirubin AST ALT Alkaline Phosphatase Total Protein Albumin Blood Type O POSITIVE O POSITIVE Antibody Screen Negative Negative Crossmatch See Detail See Detail 12/12/17 12/13/17 12/13/17 22:34 06:21 08:00 WBC 15.7 H RBC 2.79 L Hgb 8.1 L Hct 24.5 L MCV 87.9 MCH 29.0 MCHC 33.0 RDW 15.4 Plt Count 128 L MPV 8.8 Absolute Neuts (auto) 13.1 H Neutrophils % 83.4 H Lymphocytes % 11.3 Monocytes % 4.6 Eosinophils % 0.4 Basophils % 0.3 Nucleated RBC % 0 Sodium Potassium Chloride Carbon Dioxide Anion Gap BUN Creatinine Creat Clearance w eGFR POC Glucometer 218 194 Random Glucose Calcium Total Bilirubin AST ALT Alkaline Phosphatase Total Protein Albumin Blood Type Antibody Screen Crossmatch 12/13/17 12/13/17 12/13/17 08:00 11:38 17:10 WBC RBC Hgb Hct MCV MCH MCHC RDW Plt Count MPV Absolute Neuts (auto) Neutrophils % Lymphocytes % Monocytes % Eosinophils % Basophils % Nucleated RBC % Sodium 153 H Potassium 3.7 Chloride 108 H Carbon Dioxide 31 Anion Gap 14 BUN 184 H* Creatinine 3.9 H Creat Clearance w eGFR 11.33 POC Glucometer 188 165 Random Glucose 158 H Calcium 7.9 L Total Bilirubin 0.4 AST 12 L ALT 14 Alkaline Phosphatase 42 L Total Protein 5.4 L Albumin 2.5 L Blood Type Antibody Screen Crossmatch [id number] IRREGULAR lung decreased obese abd- soft, NT edema++ PLAN for permacath afterwards will be dialysed continue with present care
--- NOTE | 2017-12-13 15:43 | PN ---
Progress Note, Physician History of Present Illness: Pt seen and examined at bedside. She is awake and appears comfortable. She is going for permacath tomorrow. - Current Medication List Current Medications: Active Medications Acetaminophen (Tylenol -) 650 mg PO Q4H PRN PRN Reason: PAIN LEVEL 1-5 Last Admin: 12/13/17 10:29 Dose: 650 mg Acetaminophen (Tylenol -) 650 mg PO Q8H PRN PRN Reason: PAIN LEVEL 6-10 Last Admin: 12/12/17 06:42 Dose: 650 mg Atorvastatin Calcium (Lipitor -) 10 mg PO HS [facility] Last Admin: 12/12/17 22:29 Dose: 10 mg Bisacodyl (Dulcolax -) 5 mg PO HS [facility] Last Admin: 12/12/17 22:29 Dose: 5 mg Budesonide/Formoterol Fumarate (Symbicort 160/4.5mcg -) 1 puff IH BID [facility] Last Admin: 12/13/17 10:30 Dose: 1 puff Carvedilol (Coreg -) 25 mg PO DAILY [facility] Last Admin: 12/13/17 10:30 Dose: 25 mg Cholecalciferol (Vitamin D3 -) 1,000 unit PO DAILY [facility] Last Admin: 12/13/17 10:30 Dose: 1,000 unit Docusate Sodium (Colace -) 100 mg PO HS [facility] Last Admin: 12/12/17 22:29 Dose: 100 mg Epoetin [place] (Procrit -) 10,000 unit SQ [id number] [facility] Last Admin: 12/12/17 07:49 Dose: 10,000 unit Folic Acid (Folic Acid -) 1 mg PO DAILY [facility] Last Admin: 12/13/17 10:30 Dose: 1 mg Furosemide (Lasix -) 80 mg PO DAILY [facility] Last Admin: 12/13/17 10:59 Dose: 80 mg Gabapentin (Neurontin -) 100 mg PO TID [facility] Last Admin: 12/13/17 14:00 Dose: 100 mg Insulin Aspart (Novolog Vial) 5 units SQ TIDAC [facility] Last Admin: 12/13/17 11:41 Dose: 5 units Insulin Detemir (Levemir Vial) 33 units SQ HS [facility] Last Admin: 12/12/17 22:35 Dose: 33 units Isosorbide Mononitrate (Imdur -) 60 mg PO DAILY [facility] Last Admin: 12/13/17 10:31 Dose: 60 mg Lactulose (Cephulac (Oral Use)) 30 gm PO HS [facility] Last Admin: 12/12/17 22:02 Dose: Not Given Metolazone (Zaroxolyn -) 5 mg PO DAILY [facility] Last Admin: 12/13/17 10:30 Dose: 5 mg Metoprolol Tartrate (Lopressor -) 50 mg PO TID [facility] Last Admin: 12/13/17 14:00 Dose: 50 mg Multivitamins/Minerals/Vitamin C (Tab-A-Vit -) 1 tab PO DAILY [facility] Last Admin: 12/13/17 10:30 Dose: 1 tab Nifedipine (Procardia Xl -) 90 mg PO DAILY [facility] Last Admin: 12/13/17 10:31 Dose: 90 mg Oxycodone HCl (Roxicodone -) 5 mg PO Q6H PRN PRN Reason: PAIN LEVEL 6-10 Last Admin: 12/13/17 14:00 Dose: 5 mg Polysaccharide Iron Complex (Niferex-150 -) 150 mg PO DAILY [facility] Last Admin: 12/13/17 10:31 Dose: 150 mg Ranitidine HCl (Zantac -) 150 mg PO DAILY [facility] Last Admin: 12/13/17 10:29 Dose: 150 mg Silver Sulfadiazine (Silvadene -) 1 applic TP BID [facility] Last Admin: 12/13/17 10:31 Dose: 1 applic - Objective Vital Signs: Vital Signs Temperature 98.7 F 12/13/17 15:19 Pulse Rate 69 12/13/17 15:19 Respiratory Rate 20 12/13/17 15:19 Blood Pressure 121/53 12/13/17 15:19 O2 Sat by Pulse Oximetry (%) 99 12/12/17 21:00 Constitutional: Yes: Calm Eyes: Yes: Conjunctiva Clear HENT: Yes: Atraumatic Cardiovascular: Yes: S1, S2 Respiratory: Yes: On Nasal O2 Gastrointestinal: Yes: Soft, Abdomen, Obese Genitourinary: Yes: [place] Present Musculoskeletal: Yes: WNL Edema: Yes Edema: LLE: 1+, RLE: 1+ Neurological: Yes: Oriented Psychiatric: Yes: Oriented Labs: CBC, BMP 12/13/17 08:00 12/13/17 08:00 INR, PTT INR 1.17 (0.83-1.09) H 12/12/17 07:00 Problem List - Problems (1) Anemia requiring transfusions Code(s): D64.9 - ANEMIA, UNSPECIFIED (2) Afib Code(s): I48.91 - UNSPECIFIED ATRIAL FIBRILLATION Qualifiers: Atrial fibrillation type: persistent Qualified Code(s): I48.1 - Persistent atrial fibrillation (3) Anemia Code(s): D64.9 - ANEMIA, UNSPECIFIED Qualifiers: Anemia type: unspecified type Qualified Code(s): D64.9 - Anemia, unspecified (4) CHF (congestive heart failure) Code(s): I50.9 - HEART FAILURE, UNSPECIFIED (5) CHF (congestive heart failure) Code(s): I50.9 - HEART FAILURE, UNSPECIFIED (6) CKD (chronic kidney disease) Code(s): N18.9 - CHRONIC KIDNEY DISEASE, UNSPECIFIED Qualifiers: Chronic kidney disease stage: unspecified stage Qualified Code(s): N18.9 - Chronic kidney disease, unspecified (7) CKD (chronic kidney disease) stage 5, GFR less than 15 ml/min Code(s): N18.5 - CHRONIC KIDNEY DISEASE, STAGE 5 Assessment/Plan Current Medications Generic Name Dose Route Start Last Admin Trade Name Freq PRN Reason Stop Dose Admin Acetaminophen 650 mg 12/07/17 22:39 12/13/17 10:29 Tylenol - PO 650 mg Q4H PRN Administration PAIN LEVEL 1-5 Acetaminophen 650 mg 12/08/17 05:12 12/12/17 06:42 Tylenol - PO 650 mg Q8H PRN Administration PAIN LEVEL 6-10 Atorvastatin Calcium 10 mg 12/08/17 22:00 12/12/17 22:29 Lipitor - PO 10 mg HS [facility] Administration Bisacodyl 5 mg 12/08/17 22:00 12/12/17 22:29 Dulcolax - PO 5 mg HS [facility] Administration Budesonide/Formoterol Fumarate 1 puff 12/08/17 10:00 12/13/17 10:30 Symbicort 160/4.5mcg - IH 1 puff BID [facility] Administration Carvedilol 25 mg 12/08/17 10:00 12/13/17 10:30 Coreg - PO 25 mg DAILY [facility] Administration Cholecalciferol 1,000 unit 12/08/17 10:00 12/13/17 10:30 Vitamin D3 - PO 1,000 unit DAILY [facility] Administration Docusate Sodium 100 mg 12/08/17 22:00 12/12/17 22:29 Colace - PO 100 mg HS [facility] Administration Epoetin [place] 10,000 unit 12/08/17 08:00 12/12/17 07:49 Procrit - SQ 10,000 unit [id number] [facility] Administration Folic Acid 1 mg 12/08/17 10:00 12/13/17 10:30 Folic Acid - PO 1 mg DAILY [facility] Administration Furosemide 80 mg 12/11/17 10:00 12/13/17 10:59 Lasix - PO 80 mg DAILY [facility] Administration Gabapentin 100 mg 12/07/17 22:45 12/13/17 14:00 Neurontin - PO 100 mg TID [facility] Administration Insulin Aspart 5 units 12/08/17 07:00 12/13/17 11:41 Novolog Vial SQ 5 units TIDAC [facility] Administration Insulin Detemir 33 units 12/08/17 22:00 12/12/17 22:35 Levemir Vial SQ 33 units HS [facility] Administration Isosorbide Mononitrate 60 mg 12/08/17 10:00 12/13/17 10:31 Imdur - PO 60 mg DAILY [facility] Administration Lactulose 30 gm 12/08/17 22:00 12/12/17 22:02 Cephulac (Oral Use) PO Not Given HS [facility] Metolazone 5 mg 12/08/17 10:00 12/13/17 10:30 Zaroxolyn - PO 5 mg DAILY [facility] Administration Metoprolol Tartrate 50 mg 12/08/17 06:00 12/13/17 14:00 Lopressor - PO 50 mg TID [facility] Administration Multivitamins/Minerals/Vitamin C 1 tab 12/08/17 10:00 12/13/17 10:30 Tab-A-Vit - PO 1 tab DAILY [facility] Administration Nifedipine 90 mg 12/08/17 10:00 12/13/17 10:31 Procardia Xl - PO 90 mg DAILY [facility] Administration Oxycodone HCl 5 mg 12/11/17 13:40 12/13/17 14:00 Roxicodone - PO 5 mg Q6H PRN Administration PAIN LEVEL 6-10 Polysaccharide Iron Complex 150 mg 12/08/17 10:00 12/13/17 10:31 Niferex-150 - PO 150 mg DAILY [facility] Administration Ranitidine HCl 150 mg 12/08/17 10:00 12/13/17 10:29 Zantac - PO 150 mg DAILY [facility] Administration Silver Sulfadiazine 1 applic 12/08/17 10:00 12/13/17 10:31 Silvadene - TP 1 applic BID [facility] Administration Impression 1. CKD 2. obesity 3. hyperlipidemia 4. HTN 5. DM 6. CHF 7. CAD 8. anemia 9. a-fib 10. iron deficiency 11. r/o TIA 12. hyperkalemia Plan - pt going for permacath placement - will start HD once permacath placed - cont epogen and iron - monitor Hg - will cont with diuretics to help with volume - encourage free water intake - will follow
[2017-12-13] MEDS: LACTULOSE 20 GM/30 ML UDC (FOR ORAL USE ONLY) PO SCH (22:03)
[2017-12-13] MEDS: ATORVASTATIN CA 10 MG TABLET (FP) PO SCH (22:07)
[2017-12-13] MEDS: BISACODYL 5 MG TABLET.DR (FP) PO SCH (22:07)
[2017-12-13] MEDS: INSULIN (LEVEMIR) 100 UNITS/ML UNITS SQ SCH (22:23)
[2017-12-13] MEDS: DOCUSATE SODIUM 100 MG CAPSULE (FP) PO SCH (22:23)
[2017-12-14] MEDS: GABAPENTIN 100 MG CAPSULE (FP) PO SCH ×3 (06:08→21:15)
[2017-12-14] MEDS: METOPROLOL TARTRATE 50 MG TABLET (FP) PO SCH ×3 (06:08→21:15)
[2017-12-14] MEDS: INSULIN (NOVOLOG) ASPART 100 UNITS/ML 10ML VIAL SQ SCH ×4 (06:09→17:43)
[2017-12-14] MEDS ORDERED: INSULIN (LEVEMIR) 100 UNITS/ML UNITS SQ ONE (06:56)
[2017-12-14] MEDS ORDERED: PT OWN MED DRAWER 7, Y5N ONE ×3 (06:58→21:22)
[2017-12-14 08:09] LABS: BASO % 0.3 % (0-2.0); EOS % 1.6 % (0-4.5); HEMATOCRIT 24.6 % (32.4-45.2); LYMPH % 12.8 % (8-40); MCH 28.8 pg (25.7-33.7); MCHC 32.5 g/dl (32.0-36.0); MEAN CELL VOLUME 88.7 fl (80-96); NEUT % 79.3 % (42.8-82.8); PLATELET COUNT 130 K/MM3 (134-434); RBC 2.77 M/mm3 (3.60-5.2); RDW 15.6 % (11.6-15.6); WHITE BLOOD COUNT 12.2 K/mm3 (4.0-10.0)
[2017-12-14 08:11] LABS: ALBUMIN 2.5 g/dl (3.4-5.0); ANION GAP 12 MMOL/L (8-16); BILIRUBIN,TOTAL 0.3 mg/dL (0.2-1.0); CALCIUM 8.1 mg/dL (8.5-10.1); CHLORIDE 109 mmol/L (98-107); CO2 33 mmol/L (21-32); CREATININE 3.9 mg/dL (0.55-1.02); GLUCOSE,RANDOM 139 mg/dL (74-106); POTASSIUM 3.8 mmol/L (3.5-5.1); SGOT/AST 16 U/L (15-37); SGPT/ALT 14 U/L (12-78); SODIUM 154 mmol/L (136-145)
[2017-12-14 08:12] LABS: ALK PHOS 42 U/L (45-117); TOT PROT 5.5 g/dl (6.4-8.2)
[2017-12-14 08:14] LABS: BLOOD UREA NITROGEN 172 mg/dL (7-18)
[2017-12-14] MEDS: EPOETIN ALFA 10,000 UNIT/1 ML VIAL SQ SCH (09:12)
[2017-12-14] MEDS: MULTIVITAMINS (DAILY MVI) TABLET (FP) PO SCH (09:13)
[2017-12-14] MEDS: IRON POLYSACCHARIDES 150 MG CAPSULE PO SCH (09:13)
[2017-12-14] MEDS: FOLIC ACID 1 MG TABLET (FP) PO SCH (09:13)
[2017-12-14] MEDS: FUROSEMIDE 40 MG TABLET (FP) PO SCH (09:13)
[2017-12-14] MEDS: CHOLECALCIFEROL (VITAMIN D3) 1,000 UNIT TABLET (FP) PO SCH (09:14)
[2017-12-14] MEDS: METOLAZONE 5 MG TABLET PO SCH (09:14)
[2017-12-14] MEDS: RANITIDINE HCL 150 MG TABLET (FP) PO SCH (09:14)
[2017-12-14] MEDS: NIFEdipine E.R. 90 MG TABLET (FP) PO SCH (09:28)
[2017-12-14] MEDS: oxyCODONE HCL 5 MG TABLET PO PRN (09:28)
[2017-12-14] MEDS: ISOSORBIDE MONONITRATE 60 MG TAB.SR.24H (FP) PO SCH (09:28)
[2017-12-14] MEDS: CARVEDILOL 25 MG TABLET (FP) PO SCH (09:29)
[2017-12-14] MEDS: BUDESONIDE/FORMETEROL FUMARATE 160/4.5 mcg INHALER IH SCH ×2 (09:30→21:28)
--- NOTE | 2017-12-14 10:46 | PN ---
Progress Note, Physician History of Present Illness: Pt seen and examined at bedside. She is awake and alert. She is going for permacath placement today. - Current Medication List Current Medications: Active Medications Acetaminophen (Tylenol -) 650 mg PO Q4H PRN PRN Reason: PAIN LEVEL 1-5 Last Admin: 12/13/17 10:29 Dose: 650 mg Acetaminophen (Tylenol -) 650 mg PO Q8H PRN PRN Reason: PAIN LEVEL 6-10 Last Admin: 12/12/17 06:42 Dose: 650 mg Atorvastatin Calcium (Lipitor -) 10 mg PO HS [facility] Last Admin: 12/13/17 22:07 Dose: 10 mg Bisacodyl (Dulcolax -) 5 mg PO HS [facility] Last Admin: 12/13/17 22:07 Dose: 5 mg Budesonide/Formoterol Fumarate (Symbicort 160/4.5mcg -) 1 puff IH BID [facility] Last Admin: 12/14/17 09:30 Dose: 1 puff Carvedilol (Coreg -) 25 mg PO DAILY [facility] Last Admin: 12/14/17 09:29 Dose: 25 mg Cholecalciferol (Vitamin D3 -) 1,000 unit PO DAILY [facility] Last Admin: 12/14/17 09:14 Dose: Not Given Docusate Sodium (Colace -) 100 mg PO [facility] Last Admin: 12/13/17 22:23 Dose: 100 mg Epoetin [place] (Procrit -) 10,000 unit SQ [id number] [facility] Last Admin: 12/14/17 09:12 Dose: 10,000 unit Folic Acid (Folic Acid -) 1 mg PO DAILY [facility] Last Admin: 12/14/17 09:13 Dose: Not Given Furosemide (Lasix -) 80 mg PO DAILY [facility] Last Admin: 12/14/17 09:13 Dose: Not Given Gabapentin (Neurontin -) 100 mg PO TID [facility] Last Admin: 12/14/17 06:08 Dose: Not Given Insulin Aspart (Novolog Vial) 5 units SQ TIDAC [facility] Last Admin: 12/14/17 06:09 Dose: Not Given Insulin Detemir (Levemir Vial) 33 units SQ HS [facility] Last Admin: 12/13/17 22:23 Dose: 33 units Isosorbide Mononitrate (Imdur -) 60 mg PO DAILY [facility] Last Admin: 12/14/17 09:28 Dose: 60 mg Lactulose (Cephulac (Oral Use)) 30 gm PO HS [facility] Last Admin: 12/13/17 22:03 Dose: Not Given Metolazone (Zaroxolyn -) 5 mg PO DAILY [facility] Last Admin: 12/14/17 09:14 Dose: Not Given Metoprolol Tartrate (Lopressor -) 50 mg PO TID [facility] Last Admin: 12/14/17 06:08 Dose: Not Given Multivitamins/Minerals/Vitamin C (Tab-A-Vit -) 1 tab PO DAILY [facility] Last Admin: 12/14/17 09:13 Dose: Not Given Nifedipine (Procardia Xl -) 90 mg PO DAILY [facility] Last Admin: 12/14/17 09:28 Dose: 90 mg Oxycodone HCl (Roxicodone -) 5 mg PO Q6H PRN PRN Reason: PAIN LEVEL 6-10 Last Admin: 12/14/17 09:28 Dose: 5 mg Polysaccharide Iron Complex (Niferex-150 -) 150 mg PO DAILY [facility] Last Admin: 12/14/17 09:13 Dose: Not Given Ranitidine HCl (Zantac -) 150 mg PO DAILY [facility] Last Admin: 12/14/17 09:14 Dose: Not Given Silver Sulfadiazine (Silvadene -) 1 applic TP BID [facility] Last Admin: 12/13/17 22:29 Dose: 1 applic - Objective Vital Signs: Vital Signs Temperature 98.5 F 12/14/17 08:54 Pulse Rate 69 12/14/17 08:54 Respiratory Rate 20 12/14/17 08:54 Blood Pressure 131/62 12/14/17 08:54 O2 Sat by Pulse Oximetry (%) 99 12/13/17 21:00 Constitutional: Yes: Calm Eyes: Yes: Conjunctiva Clear HENT: Yes: Atraumatic Cardiovascular: Yes: S1, S2 Respiratory: Yes: On Nasal O2 Gastrointestinal: Yes: Soft, Abdomen, Obese Genitourinary: Yes: [place] Present Musculoskeletal: Yes: Muscle Weakness Edema: Yes Edema: LLE: 1+, RLE: 1+ Neurological: Yes: Oriented Psychiatric: Yes: Oriented Labs: CBC, BMP 12/14/17 07:20 12/14/17 07:20 INR, PTT INR 1.17 (0.83-1.09) H 12/12/17 07:00 Problem List - Problems (1) Anemia requiring transfusions Code(s): D64.9 - ANEMIA, UNSPECIFIED (2) Afib Code(s): I48.91 - UNSPECIFIED ATRIAL FIBRILLATION Qualifiers: Atrial fibrillation type: persistent Qualified Code(s): I48.1 - Persistent atrial fibrillation (3) Anemia Code(s): D64.9 - ANEMIA, UNSPECIFIED Qualifiers: Anemia type: unspecified type Qualified Code(s): D64.9 - Anemia, unspecified (4) CHF (congestive heart failure) Code(s): I50.9 - HEART FAILURE, UNSPECIFIED (5) CHF (congestive heart failure) Code(s): I50.9 - HEART FAILURE, UNSPECIFIED (6) CKD (chronic kidney disease) Code(s): N18.9 - CHRONIC KIDNEY DISEASE, UNSPECIFIED Qualifiers: Chronic kidney disease stage: unspecified stage Qualified Code(s): N18.9 - Chronic kidney disease, unspecified (7) CKD (chronic kidney disease) stage 5, GFR less than 15 ml/min Code(s): N18.5 - CHRONIC KIDNEY DISEASE, STAGE 5 Assessment/Plan Current Medications Generic Name Dose Route Start Last Admin Trade Name Freq PRN Reason Stop Dose Admin Acetaminophen 650 mg 12/07/17 22:39 12/13/17 10:29 Tylenol - PO 650 mg Q4H PRN Administration PAIN LEVEL 1-5 Acetaminophen 650 mg 12/08/17 05:12 12/12/17 06:42 Tylenol - PO 650 mg Q8H PRN Administration PAIN LEVEL 6-10 Atorvastatin Calcium 10 mg 12/08/17 22:00 12/13/17 22:07 Lipitor - PO 10 mg HS [facility] Administration Bisacodyl 5 mg 12/08/17 22:00 12/13/17 22:07 Dulcolax - PO 5 mg HS [facility] Administration Budesonide/Formoterol Fumarate 1 puff 12/08/17 10:00 12/14/17 09:30 Symbicort 160/4.5mcg - IH 1 puff BID [facility] Administration Carvedilol 25 mg 12/08/17 10:00 12/14/17 09:29 Coreg - PO 25 mg DAILY [facility] Administration Cholecalciferol 1,000 unit 12/08/17 10:00 12/14/17 09:14 Vitamin D3 - PO Not Given DAILY [facility] Docusate Sodium 100 mg 12/08/17 22:00 12/13/17 22:23 Colace - PO 100 mg HS [facility] Administration Epoetin [place] 10,000 unit 12/08/17 08:00 12/14/17 09:12 Procrit - SQ 10,000 unit [id number] [facility] Administration Folic Acid 1 mg 12/08/17 10:00 12/14/17 09:13 Folic Acid - PO Not Given DAILY [facility] Furosemide 80 mg 12/11/17 10:00 12/14/17 09:13 Lasix - PO Not Given DAILY [facility] Gabapentin 100 mg 12/07/17 22:45 12/14/17 06:08 Neurontin - PO Not Given TID [facility] Insulin Aspart 5 units 12/08/17 07:00 12/14/17 06:09 Novolog Vial SQ Not Given TIDAC [facility] Insulin Detemir 33 units 12/08/17 22:00 12/13/17 22:23 Levemir Vial SQ 33 units HS [facility] Administration Isosorbide Mononitrate 60 mg 12/08/17 10:00 12/14/17 09:28 Imdur - PO 60 mg DAILY [facility] Administration Lactulose 30 gm 12/08/17 22:00 12/13/17 22:03 Cephulac (Oral Use) PO Not Given [facility] Metolazone 5 mg 12/08/17 10:00 12/14/17 09:14 Zaroxolyn - PO Not Given DAILY [facility] Metoprolol Tartrate 50 mg 12/08/17 06:00 12/14/17 06:08 Lopressor - PO Not Given TID [facility] Multivitamins/Minerals/Vitamin C 1 tab 12/08/17 10:00 12/14/17 09:13 Tab-A-Vit - PO Not Given DAILY [facility] Nifedipine 90 mg 12/08/17 10:00 12/14/17 09:28 Procardia Xl - PO 90 mg DAILY [facility] Administration Oxycodone HCl 5 mg 12/11/17 13:40 12/14/17 09:28 Roxicodone - PO 5 mg Q6H PRN Administration PAIN LEVEL 6-10 Polysaccharide Iron Complex 150 mg 12/08/17 10:00 12/14/17 09:13 Niferex-150 - PO Not Given DAILY [facility] Ranitidine HCl 150 mg 12/08/17 10:00 12/14/17 09:14 Zantac - PO Not Given DAILY [facility] Silver Sulfadiazine 1 applic 12/08/17 10:00 12/13/17 22:29 Silvadene - TP 1 applic BID [facility] Administration Impression 1. CKD 2. obesity 3. hyperlipidemia 4. HTN 5. DM 6. CHF 7. CAD 8. anemia 9. a-fib 10. iron deficiency 11. r/o TIA 12. hyperkalemia Plan - pt going for permacath today - called and spoke to daughter, Vidya, at [phone]. I explained that the renal function is worsening and that it is time to start HD. Daughter understands and is aware of her mothers renal disease. - will likely start HD tomorrow - cont diuretics for now to help with volume status - cont epogen and iron - monitor Hg - encourage free water intake - will follow
[2017-12-14] MEDS: SILVER SULFADIAZINE 1% TOP CREAM 50 GM JAR TP SCH ×2 (11:48→21:26)
--- NOTE | 2017-12-14 13:35 | PN ---
Progress Note (short form) - Note Progress Note: pt awaiting to get permacath placed no SOB no complaints Vital Signs - 24 hr 12/13/17 12/13/17 12/13/17 15:19 18:00 21:00 Temperature 98.7 F 98.5 F Pulse Rate 69 71 Respiratory 20 20 Rate Blood Pressure 121/53 130/59 O2 Sat by Pulse 99 Oximetry (%) 12/13/17 12/14/17 12/14/17 22:00 06:00 08:54 Temperature 98.4 F 98.6 F 98.5 F Pulse Rate 72 65 69 Respiratory 20 20 Rate Blood Pressure 146/66 132/59 131/62 O2 Sat by Pulse Oximetry (%) 12/14/17 13:21 Temperature 98.4 F Pulse Rate 64 Respiratory 20 Rate Blood Pressure 127/52 O2 Sat by Pulse Oximetry (%) Current Medications Generic Name Dose Route Start Last Admin Trade Name Freq PRN Reason Stop Dose Admin Acetaminophen 650 mg 12/07/17 22:39 12/13/17 10:29 Tylenol - PO 650 mg Q4H PRN Administration PAIN LEVEL 1-5 Acetaminophen 650 mg 12/08/17 05:12 12/12/17 06:42 Tylenol - PO 650 mg Q8H PRN Administration PAIN LEVEL 6-10 Atorvastatin Calcium 10 mg 12/08/17 22:00 12/13/17 22:07 Lipitor - PO 10 mg HS [facility] Administration Bisacodyl 5 mg 12/08/17 22:00 12/13/17 22:07 Dulcolax - PO 5 mg HS [facility] Administration Budesonide/Formoterol Fumarate 1 puff 12/08/17 10:00 12/14/17 09:30 Symbicort 160/4.5mcg - IH 1 puff BID [facility] Administration Carvedilol 25 mg 12/08/17 10:00 12/14/17 09:29 Coreg - PO 25 mg DAILY [facility] Administration Cholecalciferol 1,000 unit 12/08/17 10:00 12/14/17 09:14 Vitamin D3 - PO Not Given DAILY [facility] Docusate Sodium 100 mg 12/08/17 22:00 12/13/17 22:23 Colace - PO 100 mg HS [facility] Administration Epoetin [place] 10,000 unit 12/08/17 08:00 12/14/17 09:12 Procrit - SQ 10,000 unit [id number] [facility] Administration Folic Acid 1 mg 12/08/17 10:00 12/14/17 09:13 Folic Acid - PO Not Given DAILY [facility] Furosemide 80 mg 12/11/17 10:00 12/14/17 09:13 Lasix - PO Not Given DAILY [facility] Gabapentin 100 mg 12/07/17 22:45 12/14/17 06:08 Neurontin - PO Not Given TID [facility] Insulin Aspart 5 units 12/08/17 07:00 12/14/17 11:47 Novolog Vial SQ Not Given TIDAC [facility] Insulin Detemir 33 units 12/08/17 22:00 12/13/17 22:23 Levemir Vial SQ 33 units [facility] Administration Isosorbide Mononitrate 60 mg 12/08/17 10:00 12/14/17 09:28 Imdur - PO 60 mg DAILY [facility] Administration Lactulose 30 gm 12/08/17 22:00 12/13/17 22:03 Cephulac (Oral Use) PO Not Given [facility] Metolazone 5 mg 12/08/17 10:00 12/14/17 09:14 Zaroxolyn - PO Not Given DAILY [facility] Metoprolol Tartrate 50 mg 12/08/17 06:00 12/14/17 06:08 Lopressor - PO Not Given TID [facility] Multivitamins/Minerals/Vitamin C 1 tab 12/08/17 10:00 12/14/17 09:13 Tab-A-Vit - PO Not Given DAILY [facility] Nifedipine 90 mg 12/08/17 10:00 12/14/17 09:28 Procardia Xl - PO 90 mg DAILY [facility] Administration Oxycodone HCl 5 mg 12/11/17 13:40 12/14/17 09:28 Roxicodone - PO 5 mg Q6H PRN Administration PAIN LEVEL 6-10 Polysaccharide Iron Complex 150 mg 12/08/17 10:00 12/14/17 09:13 Niferex-150 - PO Not Given DAILY [facility] Ranitidine HCl 150 mg 12/08/17 10:00 12/14/17 09:14 Zantac - PO Not Given DAILY [facility] Silver Sulfadiazine 1 applic 12/08/17 10:00 12/14/17 11:48 Silvadene - TP Not Given BID [facility] Laboratory Results - last 24 hr 12/13/17 12/13/17 12/14/17 17:10 22:10 06:01 WBC RBC Hgb Hct MCV MCH MCHC RDW Plt Count MPV Absolute Neuts (auto) Neutrophils % Lymphocytes % Monocytes % Eosinophils % Basophils % Nucleated RBC % Sodium Potassium Chloride Carbon Dioxide Anion Gap BUN Creatinine Creat Clearance w eGFR POC Glucometer 165 176 168 Random Glucose Calcium Total Bilirubin AST ALT Alkaline Phosphatase Total Protein Albumin 12/14/17 12/14/17 12/14/17 07:20 07:20 11:44 WBC 12.2 H RBC 2.77 L Hgb 8.0 L Hct 24.6 L MCV 88.7 MCH 28.8 MCHC 32.5 RDW 15.6 Plt Count 130 L MPV 9.0 Absolute Neuts (auto) 9.7 H Neutrophils % 79.3 Lymphocytes % 12.8 Monocytes % 6.0 Eosinophils % 1.6 D Basophils % 0.3 Nucleated RBC % 0 Sodium 154 H Potassium 3.8 Chloride 109 H Carbon Dioxide 33 H Anion Gap 12 BUN 172 H* Creatinine 3.9 H Creat Clearance w eGFR 11.33 POC Glucometer 146 Random Glucose 139 H Calcium 8.1 L Total Bilirubin 0.3 AST 16 ALT 14 Alkaline Phosphatase 42 L Total Protein 5.5 L Albumin 2.5 L S1S2 IRREGULAR lung decreased obese abd- soft, NT edema++ PLAN for permacath afterwards will be dialyzed Coumadin on hold continue with present care
[2017-12-14] MEDS ORDERED: HEPARIN NA (PORCINE) 5,000 UNITS/ML 1ML VIAL ONE (13:59)
[2017-12-14] MEDS ORDERED: LIDOCAINE HCL 1%, 10 MG/ML (20ML VIAL) ONE (13:59)
[2017-12-14] MEDS ORDERED: MIDAZOLAM HCL 2 MG/2 ML SINGLE DOSE VIAL ONE (15:33)
[2017-12-14] MEDS ORDERED: ceFAZolin SODIUM 1 GM VIAL ONE ×2 (15:45)
[2017-12-14] MEDS ORDERED: LIDOCAINE HCL 1%, 10 MG/ML (50 mL VIAL) IJ ONE ×2 (15:50)
[2017-12-14] MEDS ORDERED: HEPARIN NA (PORCINE) 5,000 UNITS/ML 1ML VIAL SQ ONE ×2 (15:54)
--- NOTE | 2017-12-14 16:13 | OP ---
Operative Note - Note: Operative Date: 12/14/17 Pre-Operative Diagnosis: CRF Operation: Insertion of permacath Post-Operative Diagnosis: Same as Pre-op Surgeon: Prince Escamilla Anesthesia: Fractional Estimated Blood Loss (mls): 10 Operative Report Dictated: Yes
[2017-12-14] MEDS ORDERED: ONDANSETRON 4 MG/2 ML VIAL IVPUSH PRN (16:20)
[2017-12-14] MEDS ORDERED: ONDANSETRON 4 MG/2 ML VIAL ONE (16:27)
[2017-12-14] MEDS ORDERED: ACETAMINOPHEN 325 MG TABLET (FP) PO PRN (16:30)
[2017-12-14] MEDS ORDERED: SODIUM CHLORIDE 1,000 ML IV SCH (16:30)
[2017-12-14] MEDS ORDERED: INSULIN (NOVOLOG) ASPART 100 UNITS/ML 10ML VIAL ONE (18:40)
[2017-12-14] MEDS: LACTULOSE 20 GM/30 ML UDC (FOR ORAL USE ONLY) PO SCH (21:14)
[2017-12-14] MEDS: DOCUSATE SODIUM 100 MG CAPSULE (FP) PO SCH (21:15)
[2017-12-14] MEDS: ATORVASTATIN CA 10 MG TABLET (FP) PO SCH (21:15)
[2017-12-14] MEDS: BISACODYL 5 MG TABLET.DR (FP) PO SCH (21:15)
[2017-12-14] MEDS: ACETAMINOPHEN 325 MG TABLET (FP) PO PRN (21:27)
[2017-12-14] MEDS: INSULIN (LEVEMIR) 100 UNITS/ML UNITS SQ SCH (21:29)
[2017-12-15] MEDS: ACETAMINOPHEN 325 MG TABLET (FP) PO PRN (05:43)
[2017-12-15] MEDS: GABAPENTIN 100 MG CAPSULE (FP) PO SCH ×3 (05:44→21:03)
[2017-12-15] MEDS: METOPROLOL TARTRATE 50 MG TABLET (FP) PO SCH ×3 (05:44→21:03)
[2017-12-15] MEDS: INSULIN (NOVOLOG) ASPART 100 UNITS/ML 10ML VIAL SQ SCH ×3 (05:57→17:18)
[2017-12-15] MEDS ORDERED: PT OWN MED DRAWER 7, Y5N ONE ×3 (06:55→20:38)
[2017-12-15 07:27] LABS: INR 1.14 (0.83-1.09); PROTHROMBIN TIME (PATIENT) 12.9 SEC (9.7-13.0)
[2017-12-15] MEDS ORDERED: METOLAZONE 5 MG TABLET PO SCH (09:30)
[2017-12-15] MEDS: oxyCODONE HCL 5 MG TABLET PO PRN (09:45)
[2017-12-15] MEDS ORDERED: CARVEDILOL 25 MG TABLET (FP) PO SCH (10:00)
[2017-12-15] MEDS ORDERED: FUROSEMIDE 40 MG TABLET (FP) PO SCH (10:00)
[2017-12-15] MEDS ORDERED: SODIUM CHLORIDE 250 ML IV PRN (10:42)
[2017-12-15] MEDS: SILVER SULFADIAZINE 1% TOP CREAM 50 GM JAR TP SCH ×2 (11:00→21:06)
--- NOTE | 2017-12-15 12:45 | PN ---
Progress Note (short form) - Note Progress Note: s/p permacath pt examined in HD no SOB feels well no complaints Vital Signs - 24 hr 12/14/17 12/14/17 12/14/17 16:14 16:30 16:45 Temperature 98.2 F Pulse Rate 73 68 66 Respiratory 15 11 L 17 Rate Blood Pressure 159/53 147/59 142/52 O2 Sat by Pulse 97 100 100 Oximetry (%) 12/14/17 12/14/17 12/14/17 17:00 18:00 21:00 Temperature 98.2 F 98.4 F Pulse Rate 66 66 Respiratory 18 20 Rate Blood Pressure 132/55 126/68 O2 Sat by Pulse 98 98 Oximetry (%) 12/15/17 12/15/17 12/15/17 02:00 05:52 08:00 Temperature 97.8 F 98.2 F 97.8 F Pulse Rate 57 L 65 58 L Respiratory 20 20 20 Rate Blood Pressure 135/71 130/50 113/52 O2 Sat by Pulse Oximetry (%) 12/15/17 12/15/17 12/15/17 10:00 11:35 11:40 Temperature 97.8 F Pulse Rate 60 77 Respiratory 18 18 Rate Blood Pressure 170/61 166/63 O2 Sat by Pulse 98 Oximetry (%) 12/15/17 12/15/17 12/15/17 12:10 12:40 13:10 Temperature Pulse Rate 60 62 60 Respiratory 18 18 18 Rate Blood Pressure 141/62 138/61 155/77 O2 Sat by Pulse Oximetry (%) 12/15/17 13:40 Temperature Pulse Rate 60 Respiratory 18 Rate Blood Pressure 161/83 O2 Sat by Pulse Oximetry (%) INR, PTT INR 1.14 (0.83-1.09) H 12/15/17 06:00 Current Medications Generic Name Dose Route Start Last Admin Trade Name Freq PRN Reason Stop Dose Admin Acetaminophen 650 mg 12/14/17 16:30 12/15/17 05:43 Tylenol - PO 650 mg Q4H PRN Administration PAIN LEVEL 1-5 Atorvastatin Calcium 10 mg 12/14/17 22:00 12/14/17 21:15 Lipitor - PO 10 mg HS [facility] Administration Bisacodyl 5 mg 12/14/17 22:00 12/14/17 21:15 Dulcolax - PO 5 mg HS [facility] Administration Budesonide/Formoterol Fumarate 1 puff 12/14/17 22:00 12/14/17 21:28 Symbicort 160/4.5mcg - IH 1 puff BID [facility] Administration Cholecalciferol 1,000 unit 12/15/17 10:00 Vitamin D3 - PO DAILY [facility] Docusate Sodium 100 mg 12/14/17 22:00 12/14/17 21:15 Colace - PO 100 mg HS [facility] Administration Epoetin [place] 10,000 unit 12/16/17 08:00 Procrit - SQ [id number]@0800 [facility] Folic Acid 1 mg 12/15/17 10:00 Folic Acid - PO DAILY [facility] Furosemide 80 mg 12/15/17 10:00 Lasix - PO DAILY [facility] Gabapentin 100 mg 12/14/17 22:00 12/15/17 05:44 Neurontin - PO 100 mg TID [facility] Administration Sodium Chloride 250 mls @ 3,000 mls/hr 12/15/17 10:42 Normal Saline - IV 12/16/17 10:43 PRN PRN Hypotension during Dialysis Insulin Aspart 5 units 12/14/17 16:30 12/15/17 11:28 Novolog Vial SQ Not Given TIDAC [facility] Insulin Detemir 33 units 12/14/17 22:00 12/14/17 21:29 Levemir Vial SQ 33 units HS [facility] Administration Isosorbide Mononitrate 60 mg 12/15/17 10:00 Imdur - PO DAILY [facility] Lactulose 30 gm 12/14/17 22:00 12/14/17 21:14 Cephulac (Oral Use) PO Not Given HS [facility] Metoprolol Tartrate 50 mg 12/14/17 22:00 12/15/17 05:44 Lopressor - PO 50 mg TID [facility] Administration Multivitamins/Minerals/Vitamin C 1 tab 12/15/17 10:00 Tab-A-Vit - PO DAILY [facility] Nifedipine 90 mg 12/15/17 10:00 Procardia Xl - PO DAILY [facility] Oxycodone HCl 5 mg 12/15/17 09:42 12/15/17 09:45 Roxicodone - PO 5 mg Q6H PRN Administration PAIN LEVEL 6-10 Polysaccharide Iron Complex 150 mg 12/15/17 10:00 Niferex-150 - PO DAILY [facility] Ranitidine HCl 150 mg 12/15/17 10:00 Zantac - PO DAILY [facility] Silver Sulfadiazine 1 applic 12/14/17 22:00 12/15/17 11:00 Silvadene - TP 1 applic BID [facility] Administration Laboratory Results - last 24 hr 12/08/17 12/08/17 12/12/17 21:11 21:13 09:55 PT with INR INR POC Glucometer 412 210 Blood Type O POSITIVE Antibody Screen Negative Crossmatch See Detail 12/14/17 12/14/17 12/15/17 16:51 21:34 05:49 PT with INR INR POC Glucometer 162 215 159 Blood Type Antibody Screen Crossmatch 12/15/17 12/15/17 06:00 11:04 PT with INR 12.90 INR 1.14 H POC Glucometer 227 Blood Type Antibody Screen Crossmatch S1S2 IRREGULAR lung decreased obese abd- soft, NT edema++ PLAN s/p permacath HD per renal Coumadin -- resume continue with present care
[2017-12-15] MEDS: FOLIC ACID 1 MG TABLET (FP) PO SCH (14:40)
[2017-12-15] MEDS: ISOSORBIDE MONONITRATE 60 MG TAB.SR.24H (FP) PO SCH (14:41)
[2017-12-15] MEDS: NIFEdipine E.R. 90 MG TABLET (FP) PO SCH (14:42)
[2017-12-15] MEDS: IRON POLYSACCHARIDES 150 MG CAPSULE PO SCH (14:42)
[2017-12-15] MEDS: BUDESONIDE/FORMETEROL FUMARATE 160/4.5 mcg INHALER IH SCH ×2 (14:42→21:04)
[2017-12-15] MEDS: RANITIDINE HCL 150 MG TABLET (FP) PO SCH (14:43)
[2017-12-15] MEDS: MULTIVITAMINS (DAILY MVI) TABLET (FP) PO SCH (14:43)
[2017-12-15] MEDS: CHOLECALCIFEROL (VITAMIN D3) 1,000 UNIT TABLET (FP) PO SCH (14:43)
--- NOTE | 2017-12-15 16:13 | PN ---
Progress Note, Physician History of Present Illness: Pt seen and examined at bedside. She tolerated HD today. SHe is awake and appears comfortable. - Current Medication List Current Medications: Active Medications Acetaminophen (Tylenol -) 650 mg PO Q4H PRN PRN Reason: PAIN LEVEL 1-5 Last Admin: 12/15/17 05:43 Dose: 650 mg Atorvastatin Calcium (Lipitor -) 10 mg PO HS [facility] Last Admin: 12/14/17 21:15 Dose: 10 mg Bisacodyl (Dulcolax -) 5 mg PO HS [facility] Last Admin: 12/14/17 21:15 Dose: 5 mg Budesonide/Formoterol Fumarate (Symbicort 160/4.5mcg -) 1 puff IH BID [facility] Last Admin: 12/15/17 14:42 Dose: 1 puff Cholecalciferol (Vitamin D3 -) 1,000 unit PO DAILY [facility] Last Admin: 12/15/17 14:43 Dose: 1,000 unit Docusate Sodium (Colace -) [address] [facility] Last Admin: 12/14/17 21:15 Dose: 100 mg Epoetin [place] (Procrit -) 10,000 unit SQ [id number]@0800 [facility] Folic Acid (Folic Acid -) 1 mg PO DAILY [facility] Last Admin: 12/15/17 14:40 Dose: 1 mg Furosemide (Lasix -) 80 mg PO DAILY [facility] Last Admin: 12/15/17 14:41 Dose: 80 mg Gabapentin (Neurontin -) 100 mg PO TID [facility] Last Admin: 12/15/17 14:43 Dose: 100 mg Sodium Chloride (Normal Saline -) 250 mls @ 3,000 mls/hr IV PRN PRN PRN Reason: Hypotension during Dialysis Stop: 12/16/17 10:43 Insulin Aspart (Novolog Vial) 5 units SQ TIDAC [facility] Last Admin: 12/15/17 11:28 Dose: Not Given Insulin Detemir (Levemir Vial) 33 units SQ HS [facility] Last Admin: 12/14/17 21:29 Dose: 33 units Isosorbide Mononitrate (Imdur -) 60 mg PO DAILY [facility] Last Admin: 12/15/17 14:41 Dose: 60 mg Lactulose (Cephulac (Oral Use)) 30 gm PO [facility] Last Admin: 12/14/17 21:14 Dose: Not Given Metoprolol Tartrate (Lopressor -) 50 mg PO TID [facility] Last Admin: 12/15/17 14:32 Dose: Not Given Multivitamins/Minerals/Vitamin C (Tab-A-Vit -) 1 tab PO DAILY [facility] Last Admin: 12/15/17 14:43 Dose: 1 tab Nifedipine (Procardia Xl -) 90 mg PO DAILY [facility] Last Admin: 12/15/17 14:42 Dose: 90 mg Oxycodone HCl (Roxicodone -) 5 mg PO Q6H PRN PRN Reason: PAIN LEVEL 6-10 Last Admin: 12/15/17 09:45 Dose: 5 mg Polysaccharide Iron Complex (Niferex-150 -) 150 mg PO DAILY [facility] Last Admin: 12/15/17 14:42 Dose: 150 mg Ranitidine HCl (Zantac -) 150 mg PO DAILY [facility] Last Admin: 12/15/17 14:43 Dose: 150 mg Silver Sulfadiazine (Silvadene -) 1 applic TP BID [facility] Last Admin: 12/15/17 11:00 Dose: 1 applic Warfarin Sodium (Coumadin -) 7.5 mg PO DAILY@1800 [facility] - Objective Vital Signs: Vital Signs Temperature 98.4 F 12/15/17 14:30 Pulse Rate 66 12/15/17 14:30 Respiratory Rate 20 12/15/17 14:30 Blood Pressure 141/77 12/15/17 14:30 O2 Sat by Pulse Oximetry (%) 98 12/15/17 10:00 Constitutional: Yes: Calm Eyes: Yes: Conjunctiva Clear HENT: Yes: Atraumatic Neck: Yes: Supple Cardiovascular: Yes: S1, S2 Respiratory: Yes: On Nasal O2 Gastrointestinal: Yes: Soft, Abdomen, Obese Genitourinary: Yes: Sterling Present Musculoskeletal: Yes: WNL Edema: Yes Edema: LLE: 2+, RLE: 2+ Neurological: Yes: Oriented Psychiatric: Yes: Oriented Labs: CBC, BMP 12/14/17 07:20 12/14/17 07:20 INR, PTT INR 1.14 (0.83-1.09) H 12/15/17 06:00 Problem List - Problems (1) Anemia requiring transfusions Code(s): D64.9 - ANEMIA, UNSPECIFIED (2) Afib Code(s): I48.91 - UNSPECIFIED ATRIAL FIBRILLATION Qualifiers: Atrial fibrillation type: persistent Qualified Code(s): I48.1 - Persistent atrial fibrillation (3) Anemia Code(s): D64.9 - ANEMIA, UNSPECIFIED Qualifiers: Anemia type: unspecified type Qualified Code(s): D64.9 - Anemia, unspecified (4) CHF (congestive heart failure) Code(s): I50.9 - HEART FAILURE, UNSPECIFIED (5) CHF (congestive heart failure) Code(s): I50.9 - HEART FAILURE, UNSPECIFIED (6) CKD (chronic kidney disease) Code(s): N18.9 - CHRONIC KIDNEY DISEASE, UNSPECIFIED Qualifiers: Chronic kidney disease stage: unspecified stage Qualified Code(s): N18.9 - Chronic kidney disease, unspecified (7) CKD (chronic kidney disease) stage 5, GFR less than 15 ml/min Code(s): N18.5 - CHRONIC KIDNEY DISEASE, STAGE 5 Assessment/Plan Current Medications Generic Name Dose Route Start Last Admin Trade Name Freq PRN Reason Stop Dose Admin Acetaminophen 650 mg 12/14/17 16:30 12/15/17 05:43 Tylenol - PO 650 mg Q4H PRN Administration PAIN LEVEL 1-5 Atorvastatin Calcium 10 mg 12/14/17 22:00 12/14/17 21:15 Lipitor - PO 10 mg HS [facility] Administration Bisacodyl 5 mg 12/14/17 22:00 12/14/17 21:15 Dulcolax - PO 5 mg HS [facility] Administration Budesonide/Formoterol Fumarate 1 puff 12/14/17 22:00 12/15/17 14:42 Symbicort 160/4.5mcg - IH 1 puff BID [facility] Administration Cholecalciferol 1,000 unit 12/15/17 10:00 12/15/17 14:43 Vitamin D3 - PO 1,000 unit DAILY [facility] Administration Docusate Sodium 100 mg 12/14/17 22:00 12/14/17 21:15 Colace - PO 100 mg HS [facility] Administration Epoetin [place] 10,000 unit 12/16/17 08:00 Procrit - SQ [id number]@0800 [facility] Folic Acid 1 mg 12/15/17 10:00 12/15/17 14:40 Folic Acid - PO 1 mg DAILY [facility] Administration Furosemide 80 mg 12/15/17 10:00 12/15/17 14:41 Lasix - PO 80 mg DAILY [facility] Administration Gabapentin 100 mg 12/14/17 22:00 12/15/17 14:43 Neurontin - PO 100 mg TID [facility] Administration Sodium Chloride 250 mls @ 3,000 mls/hr 12/15/17 10:42 Normal Saline - IV 12/16/17 10:43 PRN PRN Hypotension during Dialysis Insulin Aspart 5 units 12/14/17 16:30 12/15/17 11:28 Novolog Vial SQ Not Given TIDAC [facility] Insulin Detemir 33 units 12/14/17 22:00 12/14/17 21:29 Levemir Vial SQ 33 units HS [facility] Administration Isosorbide Mononitrate 60 mg 12/15/17 10:00 12/15/17 14:41 Imdur - PO 60 mg DAILY [facility] Administration Lactulose 30 gm 12/14/17 22:00 12/14/17 21:14 Cephulac (Oral Use) PO Not Given [facility] Metoprolol Tartrate 50 mg 12/14/17 22:00 12/15/17 14:32 Lopressor - PO Not Given TID [facility] Multivitamins/Minerals/Vitamin C 1 tab 12/15/17 10:00 12/15/17 14:43 Tab-A-Vit - PO 1 tab DAILY [facility] Administration Nifedipine 90 mg 12/15/17 10:00 12/15/17 14:42 Procardia Xl - PO 90 mg DAILY [facility] Administration Oxycodone HCl 5 mg 12/15/17 09:42 12/15/17 09:45 Roxicodone - PO 5 mg Q6H PRN Administration PAIN LEVEL 6-10 Polysaccharide Iron Complex 150 mg 12/15/17 10:00 12/15/17 14:42 Niferex-150 - PO 150 mg DAILY [facility] Administration Ranitidine HCl 150 mg 12/15/17 10:00 12/15/17 14:43 Zantac - PO 150 mg DAILY [facility] Administration Silver Sulfadiazine 1 applic 12/14/17 22:00 12/15/17 11:00 Silvadene - TP 1 applic BID [facility] Administration Warfarin Sodium 7.5 mg 12/15/17 18:00 Coumadin - PO DAILY@1800 [facility] Impression 1. CKD 2. obesity 3. hyperlipidemia 4. HTN 5. DM 6. CHF 7. CAD 8. anemia 9. a-fib 10. iron deficiency 11. r/o TIA 12. hyperkalemia Plan - pt tolerated HD today - cont cont with lasix on non HD days - will arrange for HD again tomorrow - epogen with HD - monitor Hg - will follow
[2017-12-15] MEDS: WARFARIN NA 7.5 MG TABLET (FP) PO SCH (17:18)
[2017-12-15] MEDS ORDERED: INSULIN (NOVOLOG) ASPART 100 UNITS/ML 10ML VIAL ONE (20:37)
[2017-12-15] MEDS: DOCUSATE SODIUM 100 MG CAPSULE (FP) PO SCH (21:03)
[2017-12-15] MEDS: ATORVASTATIN CA 10 MG TABLET (FP) PO SCH (21:04)
[2017-12-15] MEDS: BISACODYL 5 MG TABLET.DR (FP) PO SCH (21:04)
[2017-12-15] MEDS: LACTULOSE 20 GM/30 ML UDC (FOR ORAL USE ONLY) PO SCH (21:05)
[2017-12-15] MEDS: INSULIN (LEVEMIR) 100 UNITS/ML UNITS SQ SCH (21:05)
[2017-12-16] MEDS: INSULIN (NOVOLOG) ASPART 100 UNITS/ML 10ML VIAL SQ SCH ×3 (06:06→17:52)
[2017-12-16] MEDS: GABAPENTIN 100 MG CAPSULE (FP) PO SCH ×3 (06:08→21:42)
[2017-12-16] MEDS: METOPROLOL TARTRATE 50 MG TABLET (FP) PO SCH ×3 (06:08→21:42)
[2017-12-16] MEDS ORDERED: EPOETIN ALFA 10,000 UNIT/1 ML VIAL SQ SCH (08:00)
[2017-12-16 08:07] LABS: INR 1.25 (0.83-1.09); PROTHROMBIN TIME (PATIENT) 14.1 SEC (9.7-13.0)
[2017-12-16] MEDS ORDERED: PT OWN MED DRAWER 7, Y5N ONE ×2 (10:59→21:27)
[2017-12-16] MEDS: ISOSORBIDE MONONITRATE 60 MG TAB.SR.24H (FP) PO SCH (11:01)
[2017-12-16] MEDS: CHOLECALCIFEROL (VITAMIN D3) 1,000 UNIT TABLET (FP) PO SCH (11:01)
[2017-12-16] MEDS: FOLIC ACID 1 MG TABLET (FP) PO SCH (11:01)
[2017-12-16] MEDS: BUDESONIDE/FORMETEROL FUMARATE 160/4.5 mcg INHALER IH SCH ×2 (11:02→21:44)
[2017-12-16] MEDS: IRON POLYSACCHARIDES 150 MG CAPSULE PO SCH (11:02)
[2017-12-16] MEDS: MULTIVITAMINS (DAILY MVI) TABLET (FP) PO SCH (11:02)
[2017-12-16] MEDS: RANITIDINE HCL 150 MG TABLET (FP) PO SCH (11:02)
[2017-12-16] MEDS: NIFEdipine E.R. 90 MG TABLET (FP) PO SCH (11:02)
[2017-12-16] MEDS: SILVER SULFADIAZINE 1% TOP CREAM 50 GM JAR TP SCH ×2 (11:11→21:43)
--- NOTE | 2017-12-16 11:24 | PN ---
Progress Note (short form) - Note Progress Note: Pt seen/ examined chart reviewed s/p permacath-- hd yesterday comfortable feels better Vital Signs Temp 99.4 F 12/16/17 05:42 Pulse 71 12/16/17 05:42 Resp 20 12/16/17 05:42 BP 134/59 12/16/17 05:42 Pulse Ox 98 12/15/17 22:00 Intake & Output 12/15/17 12/15/17 12/16/17 11:59 23:59 11:59 Intake Total 500 550 500 Output Total 900 1300 600 Balance -400 -750 -100 Weight 290 lb 2 oz 287 lb 1.6 oz Intake: Oral 500 300 500 Tube Feeding 250 Output: Urine 900 1300 600 Sterling 900 900 600 Void 400 Other: Voiding Method Indwelling Catheter Indwelling Catheter Indwelling Catheter Bowel Movement No No # Bowel Movements 1 Weight Measurement Method Built in Bedscale Built in Bedscale Active Medications Acetaminophen (Tylenol -) 650 mg PO Q4H PRN PRN Reason: PAIN LEVEL 1-5 Last Admin: 12/15/17 05:43 Dose: 650 mg Atorvastatin Calcium (Lipitor -) 10 mg PO HS [facility] Last Admin: 12/15/17 21:04 Dose: 10 mg Bisacodyl (Dulcolax -) 5 mg PO HS [facility] Last Admin: 12/15/17 21:04 Dose: 5 mg Budesonide/Formoterol Fumarate (Symbicort 160/4.5mcg -) 1 puff IH BID [facility] Last Admin: 12/16/17 11:02 Dose: 1 puff Cholecalciferol (Vitamin D3 -) 1,000 unit PO DAILY [facility] Last Admin: 12/16/17 11:01 Dose: 1,000 unit Docusate Sodium (Colace -) 100 mg PO HS [facility] Last Admin: 12/15/17 21:03 Dose: 100 mg Epoetin [place] (Procrit -) 10,000 unit IVPUSH ONCE ONE Stop: 12/16/17 11:01 Folic Acid (Folic Acid -) 1 mg PO DAILY [facility] Last Admin: 12/16/17 11:01 Dose: 1 mg Furosemide (Lasix -) 80 mg PO DAILY [facility] Gabapentin (Neurontin -) 100 mg PO TID [facility] Last Admin: 12/16/17 06:08 Dose: 100 mg Sodium Chloride (Normal Saline -) 250 mls @ 3,000 mls/hr IV PRN PRN PRN Reason: Hypotension during Dialysis Stop: 12/16/17 11:01 Iron Sucrose 50 mg/ Sodium (Chloride) 97.5 mls @ 195 mls/hr IVPB ONCE ONE Stop: 12/16/17 11:29 Insulin Aspart (Novolog Vial) 5 units SQ TIDAC [facility] Last Admin: 12/16/17 11:10 Dose: 5 units Insulin Detemir (Levemir Vial) 33 units SQ [facility] Last Admin: 12/15/17 21:05 Dose: 33 units Isosorbide Mononitrate (Imdur -) 60 mg PO DAILY [facility] Last Admin: 12/16/17 11:01 Dose: 60 mg Lactulose (Cephulac (Oral Use)) 30 gm PO [facility] Last Admin: 12/15/17 21:05 Dose: Not Given Metoprolol Tartrate (Lopressor -) 50 mg PO TID [facility] Last Admin: 12/16/17 06:08 Dose: 50 mg Multivitamins/Minerals/Vitamin C (Tab-A-Vit -) 1 tab PO DAILY [facility] Last Admin: 12/16/17 11:02 Dose: 1 tab Nifedipine (Procardia Xl -) 90 mg PO DAILY [facility] Last Admin: 12/16/17 11:02 Dose: 90 mg Oxycodone HCl (Roxicodone -) 5 mg PO Q6H PRN PRN Reason: PAIN LEVEL 6-10 Last Admin: 12/15/17 09:45 Dose: 5 mg Polysaccharide Iron Complex (Niferex-150 -) 150 mg PO DAILY [facility] Last Admin: 12/16/17 11:02 Dose: 150 mg Ranitidine HCl (Zantac -) 150 mg PO DAILY [facility] Last Admin: 12/16/17 11:02 Dose: 150 mg Silver Sulfadiazine (Silvadene -) 1 applic TP BID [facility] Last Admin: 12/16/17 11:11 Dose: 1 applic Warfarin Sodium (Coumadin -) 7.5 mg PO DAILY@1800 [facility] Last Admin: 12/15/17 17:18 Dose: 7.5 mg CBC, BMP 12/14/17 07:20 12/14/17 07:20 Physical Examination Conscious and cooperative. Morbidly obese Eyes: Yes: Conjunctiva Clear Neck: Yes: Supple Cardiovascular: No: Regular Rate and Rhythm Respiratory: Yes: Diminished Gastrointestinal: Yes: Abdomen, Obese Edema: LLE: 1+, RLE: 1+ Neurological: Yes: Alert Psychiatric: Yes: Alert Assessment/Plan stable next hd today continue present care will follow discussed with nursing staff. Problem List - Problems (1) Anemia requiring transfusions Code(s): D64.9 - ANEMIA, UNSPECIFIED (2) Encounter regarding vascular access for dialysis for end-stage renal disease Code(s): N18.6 - END STAGE RENAL DISEASE; Z99.2 - DEPENDENCE ON RENAL DIALYSIS (3) Afib Code(s): I48.91 - UNSPECIFIED ATRIAL FIBRILLATION Qualifiers: Atrial fibrillation type: persistent Qualified Code(s): I48.1 - Persistent atrial fibrillation (4) CKD (chronic kidney disease) stage 5, GFR less than 15 ml/min Code(s): N18.5 - CHRONIC KIDNEY DISEASE, STAGE 5 (5) Diabetes mellitus Code(s): E11.9 - TYPE 2 DIABETES MELLITUS WITHOUT COMPLICATIONS Qualifiers: Chronic kidney disease stage: unspecified stage (6) Functional quadriplegia Code(s): R53.2 - FUNCTIONAL QUADRIPLEGIA (7) Morbid obesity Code(s): E66.01 - MORBID (SEVERE) OBESITY DUE TO EXCESS CALORIES
--- NOTE | 2017-12-16 14:30 | PN ---
Progress Note, Physician History of Present Illness: Pt seen and examined at bedside. She is awake and alert. She denies shortness of breath. - Current Medication List Current Medications: Active Medications Acetaminophen (Tylenol -) 650 mg PO Q4H PRN PRN Reason: PAIN LEVEL 1-5 Last Admin: 12/15/17 05:43 Dose: 650 mg Atorvastatin Calcium (Lipitor -) 10 mg PO HS [facility] Last Admin: 12/15/17 21:04 Dose: 10 mg Bisacodyl (Dulcolax -) 5 mg PO HS [facility] Last Admin: 12/15/17 21:04 Dose: 5 mg Budesonide/Formoterol Fumarate (Symbicort 160/4.5mcg -) 1 puff IH BID [facility] Last Admin: 12/16/17 11:02 Dose: 1 puff Cholecalciferol (Vitamin D3 -) 1,000 unit PO DAILY [facility] Last Admin: 12/16/17 11:01 Dose: 1,000 unit Docusate Sodium (Colace -) 100 mg PO [facility] Last Admin: 12/15/17 21:03 Dose: 100 mg Epoetin [place] (Procrit -) 10,000 unit IVPUSH ONCE ONE Stop: 12/16/17 11:01 Folic Acid (Folic Acid -) 1 mg PO DAILY [facility] Last Admin: 12/16/17 11:01 Dose: 1 mg Furosemide (Lasix -) 80 mg PO DAILY [facility] Gabapentin (Neurontin -) 100 mg PO TID [facility] Last Admin: 12/16/17 06:08 Dose: 100 mg Sodium Chloride (Normal Saline -) 250 mls @ 3,000 mls/hr IV PRN PRN PRN Reason: Hypotension during Dialysis Stop: 12/16/17 11:01 Iron Sucrose 50 mg/ Sodium (Chloride) 97.5 mls @ 195 mls/hr IVPB ONCE ONE Stop: 12/16/17 11:29 Insulin Aspart (Novolog Vial) 5 units SQ TIDAC [facility] Last Admin: 12/16/17 11:10 Dose: 5 units Insulin Detemir (Levemir Vial) 33 units SQ HS [facility] Last Admin: 12/15/17 21:05 Dose: 33 units Isosorbide Mononitrate (Imdur -) 60 mg PO DAILY [facility] Last Admin: 12/16/17 11:01 Dose: 60 mg Lactulose (Cephulac (Oral Use)) 30 gm PO HS [facility] Last Admin: 12/15/17 21:05 Dose: Not Given Metoprolol Tartrate (Lopressor -) 50 mg PO TID [facility] Last Admin: 12/16/17 06:08 Dose: 50 mg Multivitamins/Minerals/Vitamin C (Tab-A-Vit -) 1 tab PO DAILY [facility] Last Admin: 12/16/17 11:02 Dose: 1 tab Nifedipine (Procardia Xl -) 90 mg PO DAILY [facility] Last Admin: 12/16/17 11:02 Dose: 90 mg Oxycodone HCl (Roxicodone -) 5 mg PO Q6H PRN PRN Reason: PAIN LEVEL 6-10 Last Admin: 12/15/17 09:45 Dose: 5 mg Polysaccharide Iron Complex (Niferex-150 -) 150 mg PO DAILY [facility] Last Admin: 12/16/17 11:02 Dose: 150 mg Ranitidine HCl (Zantac -) 150 mg PO DAILY [facility] Last Admin: 12/16/17 11:02 Dose: 150 mg Silver Sulfadiazine (Silvadene -) 1 applic TP BID [facility] Last Admin: 12/16/17 11:11 Dose: 1 applic Warfarin Sodium (Coumadin -) 7.5 mg PO DAILY@1800 [facility] Last Admin: 12/15/17 17:18 Dose: 7.5 mg - Objective Vital Signs: Vital Signs Temperature 99.4 F 12/16/17 05:42 Pulse Rate 71 12/16/17 05:42 Respiratory Rate 20 12/16/17 05:42 Blood Pressure 134/59 12/16/17 05:42 O2 Sat by Pulse Oximetry (%) 98 12/15/17 22:00 Constitutional: Yes: Calm Eyes: Yes: Conjunctiva Clear HENT: Yes: Atraumatic Cardiovascular: Yes: S1, S2 Respiratory: Yes: CTA Bilaterally, On Nasal O2 Gastrointestinal: Yes: Soft Genitourinary: Yes: [place] Present Musculoskeletal: Yes: Other (obese) Edema: Yes Edema: LLE: 1+, RLE: 1+ Neurological: Yes: Oriented Psychiatric: Yes: Oriented Labs: CBC, BMP 12/14/17 07:20 12/14/17 07:20 INR, PTT INR 1.25 (0.83-1.09) H 12/16/17 06:10 Problem List - Problems (1) Anemia requiring transfusions Code(s): D64.9 - ANEMIA, UNSPECIFIED (2) Afib Code(s): I48.91 - UNSPECIFIED ATRIAL FIBRILLATION Qualifiers: Atrial fibrillation type: persistent Qualified Code(s): I48.1 - Persistent atrial fibrillation (3) Anemia Code(s): D64.9 - ANEMIA, UNSPECIFIED Qualifiers: Anemia type: unspecified type Qualified Code(s): D64.9 - Anemia, unspecified (4) CHF (congestive heart failure) Code(s): I50.9 - HEART FAILURE, UNSPECIFIED (5) CHF (congestive heart failure) Code(s): I50.9 - HEART FAILURE, UNSPECIFIED (6) CKD (chronic kidney disease) Code(s): N18.9 - CHRONIC KIDNEY DISEASE, UNSPECIFIED Qualifiers: Chronic kidney disease stage: unspecified stage Qualified Code(s): N18.9 - Chronic kidney disease, unspecified (7) CKD (chronic kidney disease) stage 5, GFR less than 15 ml/min Code(s): N18.5 - CHRONIC KIDNEY DISEASE, STAGE 5 Assessment/Plan Current Medications Generic Name Dose Route Start Last Admin Trade Name Freq PRN Reason Stop Dose Admin Acetaminophen 650 mg 12/14/17 16:30 12/15/17 05:43 Tylenol - PO 650 mg Q4H PRN Administration PAIN LEVEL 1-5 Atorvastatin Calcium 10 mg 12/14/17 22:00 12/15/17 21:04 Lipitor - PO 10 mg HS [facility] Administration Bisacodyl 5 mg 12/14/17 22:00 12/15/17 21:04 Dulcolax - PO 5 mg HS [facility] Administration Budesonide/Formoterol Fumarate 1 puff 12/14/17 22:00 12/16/17 11:02 Symbicort 160/4.5mcg - IH 1 puff BID [facility] Administration Cholecalciferol 1,000 unit 12/15/17 10:00 12/16/17 11:01 Vitamin D3 - PO 1,000 unit DAILY [facility] Administration Docusate Sodium 100 mg 12/14/17 22:00 12/15/17 21:03 Colace - PO 100 mg HS [facility] Administration Epoetin [place] 10,000 unit 12/16/17 11:00 Procrit - IVPUSH 12/16/17 11:01 ONCE ONE Folic Acid 1 mg 12/15/17 10:00 12/16/17 11:01 Folic Acid - PO 1 mg DAILY [facility] Administration Furosemide 80 mg 12/17/17 10:00 Lasix - PO DAILY [facility] Gabapentin 100 mg 12/14/17 22:00 12/16/17 06:08 Neurontin - PO 100 mg TID [facility] Administration Sodium Chloride 250 mls @ 3,000 mls/hr 12/16/17 11:00 Normal Saline - IV 12/16/17 11:01 PRN PRN Hypotension during Dialysis Iron Sucrose 50 mg/ Sodium 97.5 mls @ 195 mls/hr 12/16/17 11:00 Chloride IVPB 12/16/17 11:29 ONCE ONE Insulin Aspart 5 units 12/14/17 16:30 12/16/17 11:10 Novolog Vial SQ 5 units TIDAC [facility] Administration Insulin Detemir 33 units 12/14/17 22:00 12/15/17 21:05 Levemir Vial SQ 33 units HS [facility] Administration Isosorbide Mononitrate 60 mg 12/15/17 10:00 12/16/17 11:01 Imdur - PO 60 mg DAILY [facility] Administration Lactulose 30 gm 12/14/17 22:00 12/15/17 21:05 Cephulac (Oral Use) PO Not Given [facility] Metoprolol Tartrate 50 mg 12/14/17 22:00 12/16/17 06:08 Lopressor - PO 50 mg TID [facility] Administration Multivitamins/Minerals/Vitamin C 1 tab 12/15/17 10:00 12/16/17 11:02 Tab-A-Vit - PO 1 tab DAILY [facility] Administration Nifedipine 90 mg 12/15/17 10:00 12/16/17 11:02 Procardia Xl - PO 90 mg DAILY [facility] Administration Oxycodone HCl 5 mg 12/15/17 09:42 12/15/17 09:45 Roxicodone - PO 5 mg Q6H PRN Administration PAIN LEVEL 6-10 Polysaccharide Iron Complex 150 mg 12/15/17 10:00 12/16/17 11:02 Niferex-150 - PO 150 mg DAILY [facility] Administration Ranitidine HCl 150 mg 12/15/17 10:00 12/16/17 11:02 Zantac - PO 150 mg DAILY [facility] Administration Silver Sulfadiazine 1 applic 12/14/17 22:00 12/16/17 11:11 Silvadene - TP 1 applic BID [facility] Administration Warfarin Sodium 7.5 mg 12/15/17 18:00 12/15/17 17:18 Coumadin - PO 7.5 mg DAILY@1800 [facility] Administration Impression 1. CKD 2. obesity 3. hyperlipidemia 4. HTN 5. DM 6. CHF 7. CAD 8. anemia 9. a-fib 10. iron deficiency 11. r/o TIA 12. hyperkalemia Plan - HD today - pre-HD lebs sent - epogen for anemia - next HD on Tuesday - can give lasix on non HD days - will follow - will need to set up HD as outpt
[2017-12-16 15:07] LABS: HEMATOCRIT 24.3 % (32.4-45.2); HEMOGLOBIN 8.1 GM/dL (10.7-15.3); MCH 29.4 pg (25.7-33.7); MCHC 33.1 g/dl (32.0-36.0); MEAN CELL VOLUME 88.8 fl (80-96); MEAN PLT VOLUME 8.8 fl (7.5-11.1); PLATELET COUNT 185 K/MM3 (134-434); RBC 2.74 M/mm3 (3.60-5.2); RDW 15.6 % (11.6-15.6); WHITE BLOOD COUNT 9.5 K/mm3 (4.0-10.0)
[2017-12-16] MEDS ORDERED: SODIUM CHLORIDE 250 ML IV PRN (15:23)
[2017-12-16] MEDS ORDERED: SODIUM CHLORIDE IVPB ONE (15:30)
[2017-12-16] MEDS ORDERED: IRON SUCROSE IVPB ONE (15:30)
[2017-12-16] MEDS ORDERED: EPOETIN ALFA 10,000 UNIT/1 ML VIAL IVPUSH ONE (15:30)
[2017-12-16 16:17] LABS: ANION GAP 7 MMOL/L (8-16); CALCIUM 7.7 mg/dL (8.5-10.1); CHLORIDE 103 mmol/L (98-107); CO2 36 mmol/L (21-32); CREATININE 3.1 mg/dL (0.55-1.02); GLUCOSE,RANDOM 86 mg/dL (74-106); POTASSIUM 3.5 mmol/L (3.5-5.1); SODIUM 146 mmol/L (136-145)
[2017-12-16 16:25] LABS: BLOOD UREA NITROGEN 105 mg/dL (7-18)
[2017-12-16] MEDS: WARFARIN NA 7.5 MG TABLET (FP) PO SCH (17:52)
[2017-12-16] MEDS: LACTULOSE 20 GM/30 ML UDC (FOR ORAL USE ONLY) PO SCH (21:42)
[2017-12-16] MEDS: BISACODYL 5 MG TABLET.DR (FP) PO SCH (21:42)
[2017-12-16] MEDS: ATORVASTATIN CA 10 MG TABLET (FP) PO SCH (21:42)
[2017-12-16] MEDS: INSULIN (LEVEMIR) 100 UNITS/ML UNITS SQ SCH (21:42)
[2017-12-16] MEDS: DOCUSATE SODIUM 100 MG CAPSULE (FP) PO SCH (21:42)
[2017-12-17] MEDS: INSULIN (NOVOLOG) ASPART 100 UNITS/ML 10ML VIAL SQ SCH ×3 (06:39→17:13)
[2017-12-17] MEDS: GABAPENTIN 100 MG CAPSULE (FP) PO SCH ×3 (06:39→21:33)
[2017-12-17] MEDS: METOPROLOL TARTRATE 50 MG TABLET (FP) PO SCH ×3 (06:39→21:32)
[2017-12-17] MEDS: oxyCODONE HCL 5 MG TABLET PO PRN ×2 (08:11→21:33)
[2017-12-17] MEDS ORDERED: PT OWN MED DRAWER 7, Y5N ONE ×3 (09:13→21:21)
[2017-12-17] MEDS: FOLIC ACID 1 MG TABLET (FP) PO SCH (09:24)
[2017-12-17] MEDS: FUROSEMIDE 40 MG TABLET (FP) PO SCH (09:25)
[2017-12-17] MEDS: ISOSORBIDE MONONITRATE 60 MG TAB.SR.24H (FP) PO SCH (09:25)
[2017-12-17] MEDS: SILVER SULFADIAZINE 1% TOP CREAM 50 GM JAR TP SCH ×2 (09:26→21:35)
[2017-12-17] MEDS: NIFEdipine E.R. 90 MG TABLET (FP) PO SCH (09:26)
[2017-12-17] MEDS: MULTIVITAMINS (DAILY MVI) TABLET (FP) PO SCH (09:27)
[2017-12-17] MEDS: BUDESONIDE/FORMETEROL FUMARATE 160/4.5 mcg INHALER IH SCH ×2 (09:27→21:35)
[2017-12-17] MEDS: IRON POLYSACCHARIDES 150 MG CAPSULE PO SCH (09:28)
[2017-12-17] MEDS: CHOLECALCIFEROL (VITAMIN D3) 1,000 UNIT TABLET (FP) PO SCH (09:28)
[2017-12-17] MEDS: RANITIDINE HCL 150 MG TABLET (FP) PO SCH (09:28)
--- NOTE | 2017-12-17 10:41 | PN ---
Progress Note (short form) - Note Progress Note: no SOB feels well no complaints \ Vital Signs - 24 hr 12/16/17 12/16/17 12/16/17 16:15 16:45 17:15 Temperature Pulse Rate 65 69 64 Respiratory 18 18 18 Rate Blood Pressure 139/71 138/69 150/66 O2 Sat by Pulse Oximetry (%) 12/16/17 12/16/17 12/16/17 17:20 21:00 22:00 Temperature 98.9 F Pulse Rate 72 72 Respiratory 18 20 20 Rate Blood Pressure 147/60 122/76 O2 Sat by Pulse 98 98 Oximetry (%) 12/17/17 12/17/17 12/17/17 06:00 09:50 14:00 Temperature 99.2 F 98.6 F 98.7 F Pulse Rate 68 73 71 Respiratory 20 20 18 Rate Blood Pressure 149/60 156/72 134/55 O2 Sat by Pulse Oximetry (%) Current Medications Generic Name Dose Route Start Last Admin Trade Name Freq PRN Reason Stop Dose Admin Acetaminophen 650 mg 12/14/17 16:30 12/15/17 05:43 Tylenol - PO 650 mg Q4H PRN Administration PAIN LEVEL 1-5 Atorvastatin Calcium 10 mg 12/14/17 22:00 12/16/17 21:42 Lipitor - PO 10 mg HS [facility] Administration Bisacodyl 5 mg 12/14/17 22:00 12/16/17 21:42 Dulcolax - PO Not Given [facility] Budesonide/Formoterol Fumarate 1 puff 12/14/17 22:00 12/17/17 09:27 Symbicort 160/4.5mcg - IH 1 puff BID [facility] Administration Cholecalciferol 1,000 unit 12/15/17 10:00 12/17/17 09:28 Vitamin D3 - PO 1,000 unit DAILY [facility] Administration Docusate Sodium 100 mg 12/14/17 22:00 12/16/17 21:42 Colace - PO Not Given [facility] Folic Acid 1 mg 12/15/17 10:00 12/17/17 09:24 Folic Acid - PO 1 mg DAILY [facility] Administration Furosemide 80 mg 12/17/17 10:00 12/17/17 09:25 Lasix - PO 80 mg DAILY [facility] Administration Gabapentin 100 mg 12/14/17 22:00 12/17/17 15:24 Neurontin - PO 100 mg TID [facility] Administration Insulin Aspart 5 units 12/14/17 16:30 12/17/17 11:43 Novolog Vial SQ 5 units TIDAC [facility] Administration Insulin Detemir 33 units 12/14/17 22:00 12/16/17 21:42 Levemir Vial SQ 33 units HS [facility] Administration Isosorbide Mononitrate 60 mg 12/15/17 10:00 12/17/17 09:25 Imdur - PO 60 mg DAILY [facility] Administration Lactulose 30 gm 12/14/17 22:00 12/16/17 21:42 Cephulac (Oral Use) PO Not Given HS [facility] Metoprolol Tartrate 50 mg 12/14/17 22:00 12/17/17 15:24 Lopressor - PO 50 mg TID [facility] Administration Multivitamins/Minerals/Vitamin C 1 tab 12/15/17 10:00 12/17/17 09:27 Tab-A-Vit - PO 1 tab DAILY [facility] Administration Nifedipine 90 mg 12/15/17 10:00 12/17/17 09:26 Procardia Xl - PO 90 mg DAILY [facility] Administration Oxycodone HCl 5 mg 12/15/17 09:42 12/17/17 08:11 Roxicodone - PO 5 mg Q6H PRN Administration PAIN LEVEL 6-10 Polysaccharide Iron Complex 150 mg 12/15/17 10:00 12/17/17 09:28 Niferex-150 - PO 150 mg DAILY [facility] Administration Ranitidine HCl 150 mg 12/15/17 10:00 12/17/17 09:28 Zantac - PO 150 mg DAILY [facility] Administration Silver Sulfadiazine 1 applic 12/14/17 22:00 12/17/17 09:26 Silvadene - TP 1 applic BID [facility] Administration Warfarin Sodium 7.5 mg 12/15/17 18:00 12/16/17 17:52 Coumadin - PO 7.5 mg DAILY@1800 [facility] Administration Laboratory Results - last 24 hr 12/15/17 12/16/17 12/16/17 11:40 14:15 17:53 Sodium 146 H Potassium 3.5 Chloride 103 Carbon Dioxide 36 H Anion Gap 7 L BUN 105 H* D Creatinine 3.1 H Creat Clearance w eGFR 14.77 POC Glucometer 120 Random Glucose 86 Calcium 7.7 L Hep C Ab Diagnostic 0.2 Liver Fibrosis Interp 12/16/17 12/17/17 12/17/17 21:40 06:32 11:41 Sodium Potassium Chloride Carbon Dioxide Anion Gap BUN Creatinine Creat Clearance w eGFR POC Glucometer 174 144 159 Random Glucose Calcium Hep C Ab Diagnostic Liver Fibrosis Interp S1S2 IRREGULAR lung decreased obese abd- soft, NT edema++ decreasing PLAN s/p permacath HD per renal Coumadin -- resume continue with present care
--- NOTE | 2017-12-17 12:31 | PN ---
Progress Note (short form) - Note Progress Note: 1. CKD 2. obesity 3. hyperlipidemia 4. HTN 5. DM 6. CHF 7. CAD 8. anemia 9. a-fib 10. iron deficiency 11. r/o TIA 12. hyperkalemia Current Medications Acetaminophen (Tylenol -) 650 mg PO Q4H PRN PRN Reason: PAIN LEVEL 1-5 Last Admin: 12/15/17 05:43 Dose: 650 mg Atorvastatin Calcium (Lipitor -) [address] [facility] Last Admin: 12/16/17 21:42 Dose: 10 mg Bisacodyl (Dulcolax -) [address] [facility] Last Admin: 12/16/17 21:42 Dose: Not Given Budesonide/Formoterol Fumarate (Symbicort 160/4.5mcg -) 1 puff IH BID [facility] Last Admin: 12/17/17 09:27 Dose: 1 puff Cholecalciferol (Vitamin D3 -) 1,000 unit PO DAILY [facility] Last Admin: 12/17/17 09:28 Dose: 1,000 unit Docusate Sodium (Colace -) [address] [facility] Last Admin: 12/16/17 21:42 Dose: Not Given Folic Acid (Folic Acid -) 1 mg PO DAILY [facility] Last Admin: 12/17/17 09:24 Dose: 1 mg Furosemide (Lasix -) 80 mg PO DAILY [facility] Last Admin: 12/17/17 09:25 Dose: 80 mg Gabapentin (Neurontin -) 100 mg PO TID [facility] Last Admin: 12/17/17 06:39 Dose: 100 mg Insulin Aspart (Novolog Vial) 5 units SQ TIDAC [facility] Last Admin: 12/17/17 11:43 Dose: 5 units Insulin Detemir (Levemir Vial) [address] [facility] Last Admin: 12/16/17 21:42 Dose: 33 units Isosorbide Mononitrate (Imdur -) 60 mg PO DAILY [facility] Last Admin: 12/17/17 09:25 Dose: 60 mg Lactulose (Cephulac (Oral Use)) [address] [facility] Last Admin: 12/16/17 21:42 Dose: Not Given Metoprolol Tartrate (Lopressor -) 50 mg PO TID [facility] Last Admin: 12/17/17 06:39 Dose: 50 mg Multivitamins/Minerals/Vitamin C (Tab-A-Vit -) 1 tab PO DAILY [facility] Last Admin: 12/17/17 09:27 Dose: 1 tab Nifedipine (Procardia Xl -) 90 mg PO DAILY [facility] Last Admin: 12/17/17 09:26 Dose: 90 mg Oxycodone HCl (Roxicodone -) 5 mg PO Q6H PRN PRN Reason: PAIN LEVEL 6-10 Last Admin: 12/17/17 08:11 Dose: 5 mg Polysaccharide Iron Complex (Niferex-150 -) 150 mg PO DAILY [facility] Last Admin: 12/17/17 09:28 Dose: 150 mg Ranitidine HCl (Zantac -) 150 mg PO DAILY [facility] Last Admin: 12/17/17 09:28 Dose: 150 mg Silver Sulfadiazine (Silvadene -) 1 applic TP BID [facility] Last Admin: 12/17/17 09:26 Dose: 1 applic Warfarin Sodium (Coumadin -) 7.5 mg PO DAILY@1800 [facility] Last Admin: 12/16/17 17:52 Dose: 7.5 mg Last Vital Signs Temp Pulse Resp BP Pulse Ox 98.6 F 73 20 156/72 98 12/17/17 09:50 12/17/17 09:50 12/17/17 09:50 12/17/17 09:50 12/16/17 22:00 lungs clear heart s1s2 abd soft ext no edema CBC, BMP 12/16/17 14:15 12/16/17 14:15 IMP- esrd hypernatremia Plan- hd
[2017-12-17] MEDS: WARFARIN NA 7.5 MG TABLET (FP) PO SCH (17:13)
[2017-12-17] MEDS: ATORVASTATIN CA 10 MG TABLET (FP) PO SCH (21:32)
[2017-12-17] MEDS: DOCUSATE SODIUM 100 MG CAPSULE (FP) PO SCH (21:32)
[2017-12-17] MEDS: BISACODYL 5 MG TABLET.DR (FP) PO SCH (21:33)
[2017-12-17] MEDS: INSULIN (LEVEMIR) 100 UNITS/ML UNITS SQ SCH (21:34)
[2017-12-17] MEDS: LACTULOSE 20 GM/30 ML UDC (FOR ORAL USE ONLY) PO SCH (21:36)
[2017-12-18] MEDS: GABAPENTIN 100 MG CAPSULE (FP) PO SCH ×3 (06:13→21:11)
[2017-12-18] MEDS: METOPROLOL TARTRATE 50 MG TABLET (FP) PO SCH ×3 (06:13→21:11)
[2017-12-18] MEDS: INSULIN (NOVOLOG) ASPART 100 UNITS/ML 10ML VIAL SQ SCH ×3 (06:14→17:27)
[2017-12-18 06:42] LABS: HBSAG SCREEN Negative (Negative); HEP A AB, IGM Negative (Negative); HEP B CORE AB, TOT Negative (Negative)
[2017-12-18] MEDS: oxyCODONE HCL 5 MG TABLET PO PRN (07:19)
[2017-12-18 08:38] LABS: INR 1.75 (0.83-1.09); PROTHROMBIN TIME (PATIENT) 19.8 SEC (9.7-13.0)
[2017-12-18] MEDS ORDERED: PT OWN MED DRAWER 7, Y5N ONE ×3 (10:03→20:45)
[2017-12-18] MEDS: FUROSEMIDE 40 MG TABLET (FP) PO SCH (10:08)
[2017-12-18] MEDS: ISOSORBIDE MONONITRATE 60 MG TAB.SR.24H (FP) PO SCH (10:08)
[2017-12-18] MEDS: FOLIC ACID 1 MG TABLET (FP) PO SCH (10:08)
[2017-12-18] MEDS: BUDESONIDE/FORMETEROL FUMARATE 160/4.5 mcg INHALER IH SCH ×2 (10:09→21:13)
[2017-12-18] MEDS: SILVER SULFADIAZINE 1% TOP CREAM 50 GM JAR TP SCH ×2 (10:09→21:12)
[2017-12-18] MEDS: NIFEdipine E.R. 90 MG TABLET (FP) PO SCH (10:09)
[2017-12-18] MEDS: MULTIVITAMINS (DAILY MVI) TABLET (FP) PO SCH (10:09)
[2017-12-18] MEDS: CHOLECALCIFEROL (VITAMIN D3) 1,000 UNIT TABLET (FP) PO SCH (10:10)
[2017-12-18] MEDS: RANITIDINE HCL 150 MG TABLET (FP) PO SCH (10:10)
[2017-12-18] MEDS: IRON POLYSACCHARIDES 150 MG CAPSULE PO SCH (10:51)
--- NOTE | 2017-12-18 11:04 | PN ---
Progress Note (short form) - Note Progress Note: no SOB feels well no complaints Vital Signs - 24 hr 12/17/17 12/17/17 12/18/17 21:00 23:46 05:50 Temperature 98.3 F 98.7 F Pulse Rate 70 73 Respiratory 20 20 Rate Blood Pressure 114/48 155/70 O2 Sat by Pulse 99 Oximetry (%) 12/18/17 12/18/17 12/18/17 09:00 10:00 14:00 Temperature 98.7 F 98.5 F Pulse Rate 67 72 Respiratory 20 20 18 Rate Blood Pressure 133/74 116/54 O2 Sat by Pulse 100 Oximetry (%) Current Medications Generic Name Dose Route Start Last Admin Trade Name Freq PRN Reason Stop Dose Admin Acetaminophen 650 mg 12/14/17 16:30 12/15/17 05:43 Tylenol - PO 650 mg Q4H PRN Administration PAIN LEVEL 1-5 Atorvastatin Calcium 10 mg 12/14/17 22:00 12/17/17 21:32 Lipitor - PO 10 mg HS [facility] Administration Bisacodyl 5 mg 12/14/17 22:00 12/17/17 21:33 Dulcolax - PO 5 mg HS [facility] Administration Budesonide/Formoterol Fumarate 1 puff 12/14/17 22:00 12/18/17 10:09 Symbicort 160/4.5mcg - IH 1 puff BID [facility] Administration Cholecalciferol 1,000 unit 12/15/17 10:00 12/18/17 10:10 Vitamin D3 - PO 1,000 unit DAILY [facility] Administration Docusate Sodium 100 mg 12/14/17 22:00 12/17/17 21:32 Colace - PO 100 mg HS [facility] Administration Folic Acid 1 mg 12/15/17 10:00 12/18/17 10:08 Folic Acid - PO 1 mg DAILY [facility] Administration Furosemide 80 mg 12/17/17 10:00 12/18/17 10:08 Lasix - PO 80 mg DAILY [facility] Administration Gabapentin 100 mg 12/14/17 22:00 12/18/17 14:42 Neurontin - PO 100 mg TID [facility] Administration Sodium Chloride 250 mls @ 3,000 mls/hr 12/18/17 15:10 Normal Saline - IV 12/19/17 15:10 PRN PRN Hypotension during Dialysis Insulin Aspart 5 units 12/14/17 16:30 12/18/17 11:39 Novolog Vial SQ 5 units TIDAC [facility] Administration Insulin Detemir 33 units 12/14/17 22:00 12/17/17 21:34 Levemir Vial SQ 33 units HS [facility] Administration Isosorbide Mononitrate 60 mg 12/15/17 10:00 12/18/17 10:08 Imdur - PO 60 mg DAILY [facility] Administration Lactulose 30 gm 12/14/17 22:00 12/17/17 21:36 Cephulac (Oral Use) PO Not Given HS [facility] Metoprolol Tartrate 50 mg 12/14/17 22:00 12/18/17 14:41 Lopressor - PO 50 mg TID [facility] Administration Multivitamins/Minerals/Vitamin C 1 tab 12/15/17 10:00 12/18/17 10:09 Tab-A-Vit - PO 1 tab DAILY [facility] Administration Nifedipine 90 mg 12/15/17 10:00 12/18/17 10:09 Procardia Xl - PO 90 mg DAILY [facility] Administration Oxycodone HCl 10 mg 12/18/17 16:08 Roxicodone - PO Q6H PRN PAIN LEVEL 6-10 Polysaccharide Iron Complex 150 mg 12/15/17 10:00 12/18/17 10:51 Niferex-150 - PO 150 mg DAILY [facility] Administration Ranitidine HCl 150 mg 12/15/17 10:00 12/18/17 10:10 Zantac - PO 150 mg DAILY [facility] Administration Silver Sulfadiazine 1 applic 12/14/17 22:00 12/18/17 10:09 Silvadene - TP 1 applic BID [facility] Administration Warfarin Sodium 7.5 mg 12/15/17 18:00 12/17/17 17:13 Coumadin - PO 7.5 mg DAILY@1800 [facility] Administration Laboratory Results - last 24 hr 12/15/17 12/17/17 12/17/17 11:40 17:01 21:38 PT with INR INR POC Glucometer 235 208 Hep A IgM Ab Confirm Negative Hepatitis A Ab Total Positive H Hep Bs Antigen Negative Hep Bs Antibody Non reactive Hep B Core Total Ab Negative 12/18/17 12/18/17 12/18/17 06:10 06:17 11:38 PT with INR 19.80 H INR 1.75 H POC Glucometer 160 175 Hep A IgM Ab Confirm Hepatitis A Ab Total Hep Bs Antigen Hep Bs Antibody Hep B Core Total Ab S1S2 IRREGULAR lung decreased obese abd- soft, NT edema++ decreasing PLAN s/p permacath HD per renal Coumadin -- resume continue with present care dc planning to [place] -- case therapist will need to make arrangements for outpt HD
--- NOTE | 2017-12-18 15:07 | PN ---
Progress Note (short form) - Note Progress Note: 1. CKD 2. obesity 3. hyperlipidemia 4. HTN 5. DM 6. CHF 7. CAD 8. anemia 9. a-fib 10. iron deficiency 11. r/o TIA 12. hyperkalemia lungs clear heart s1s2 abd soft ext no edema CBC, BMP 12/16/17 14:15 12/16/17 14:15 IMP- esrd hypernatremia new to dialysis she prefers to be off on weeknds Plan- will schedule hd MWF
[2017-12-18] MEDS ORDERED: SODIUM CHLORIDE 250 ML IV PRN (15:10)
[2017-12-18] MEDS: WARFARIN NA 7.5 MG TABLET (FP) PO SCH (17:49)
[2017-12-18] MEDS: INSULIN (LEVEMIR) 100 UNITS/ML UNITS SQ SCH (21:11)
[2017-12-18] MEDS: BISACODYL 5 MG TABLET.DR (FP) PO SCH (21:11)
[2017-12-18] MEDS: ATORVASTATIN CA 10 MG TABLET (FP) PO SCH (21:11)
[2017-12-18] MEDS: DOCUSATE SODIUM 100 MG CAPSULE (FP) PO SCH (21:11)
[2017-12-18] MEDS: LACTULOSE 20 GM/30 ML UDC (FOR ORAL USE ONLY) PO SCH (21:17)
[2017-12-19] MEDS: METOPROLOL TARTRATE 50 MG TABLET (FP) PO SCH ×3 (06:04→21:28)
[2017-12-19] MEDS: GABAPENTIN 100 MG CAPSULE (FP) PO SCH ×3 (06:04→21:28)
[2017-12-19] MEDS: oxyCODONE HCL 5 MG TABLET PO PRN ×3 (06:31→22:58)
[2017-12-19] MEDS: INSULIN (NOVOLOG) ASPART 100 UNITS/ML 10ML VIAL SQ SCH ×5 (06:32→18:23)
[2017-12-19 08:54] LABS: INR 2.12 (0.83-1.09); PROTHROMBIN TIME (PATIENT) 23.9 SEC (9.7-13.0)
[2017-12-19 09:19] LABS: HEMATOCRIT 27.5 % (32.4-45.2); HEMOGLOBIN 8.8 GM/dL (10.7-15.3); MCH 28.4 pg (25.7-33.7); MCHC 32.2 g/dl (32.0-36.0); MEAN CELL VOLUME 88.1 fl (80-96); MEAN PLT VOLUME 8.7 fl (7.5-11.1); PLATELET COUNT 199 K/MM3 (134-434); RBC 3.12 M/mm3 (3.60-5.2); RDW 15.1 % (11.6-15.6); WHITE BLOOD COUNT 14.1 K/mm3 (4.0-10.0)
[2017-12-19 09:21] LABS: ALBUMIN 2.6 g/dl (3.4-5.0); ANION GAP 9 MMOL/L (8-16); BLOOD UREA NITROGEN 65 mg/dL (7-18); CALCIUM 7.9 mg/dL (8.5-10.1); CHLORIDE 102 mmol/L (98-107); CO2 32 mmol/L (21-32); CREATININE 3.1 mg/dL (0.55-1.02); GLUCOSE,RANDOM 127 mg/dL (74-106); PHOSPHOROUS 3.7 mg/dL (2.5-4.9); POTASSIUM 3.5 mmol/L (3.5-5.1); SGOT/AST 16 U/L (15-37); SGPT/ALT 11 U/L (12-78); SODIUM 143 mmol/L (136-145)
[2017-12-19 09:23] LABS: ALK PHOS 55 U/L (45-117); BILIRUBIN,TOTAL 0.3 mg/dL (0.2-1.0); TOT PROT 5.9 g/dl (6.4-8.2)
--- NOTE | 2017-12-19 10:42 | PN ---
Progress Note (short form) - Note Progress Note: pt seen/ examined in dialysis comfortable no complains says she feels much better afebrile wants to go back to assisted denies pain. Vital Signs Temp 98.9 F 12/19/17 09:40 Pulse 70 12/19/17 10:15 Resp 18 12/19/17 10:15 BP 147/77 12/19/17 10:15 Pulse Ox 100 12/19/17 09:00 Intake & Output 12/18/17 12/18/17 12/19/17 11:59 23:59 11:59 Intake Total 250 800 Balance 250 800 Weight 282 lb 3 oz 288 lb Intake: Oral 250 800 Other: Voiding Method Incontinent Incontinent Incontinent # Unmeasured Voids Void 1 300 1 Bowel Movement No No No # Bowel Movements 1 Weight Measurement Method Built in Bedscale Built in Bedscale Active Medications Acetaminophen (Tylenol -) 650 mg PO Q4H PRN PRN Reason: PAIN LEVEL 1-5 Last Admin: 12/15/17 05:43 Dose: 650 mg Atorvastatin Calcium (Lipitor -) 10 mg PO [facility] Last Admin: 12/18/17 21:11 Dose: 10 mg Bisacodyl (Dulcolax -) 5 mg PO [facility] Last Admin: 12/18/17 21:11 Dose: 5 mg Budesonide/Formoterol Fumarate (Symbicort 160/4.5mcg -) 1 puff IH BID [facility] Last Admin: 12/18/17 21:13 Dose: 1 puff Cholecalciferol (Vitamin D3 -) 1,000 unit PO DAILY [facility] Last Admin: 12/18/17 10:10 Dose: 1,000 unit Docusate Sodium (Colace -) 100 mg PO HS [facility] Last Admin: 12/18/17 21:11 Dose: 100 mg Folic Acid (Folic Acid -) 1 mg PO DAILY [facility] Last Admin: 12/18/17 10:08 Dose: 1 mg Furosemide (Lasix -) 80 mg PO DAILY [facility] Last Admin: 12/18/17 10:08 Dose: 80 mg Gabapentin (Neurontin -) 100 mg PO TID [facility] Last Admin: 12/19/17 06:04 Dose: 100 mg Sodium Chloride (Normal Saline -) 250 mls @ 3,000 mls/hr IV PRN PRN PRN Reason: Hypotension during Dialysis Stop: 12/19/17 15:10 Insulin Aspart (Novolog Vial) 5 units SQ TIDAC [facility] Last Admin: 12/19/17 06:32 Dose: 5 units Insulin Detemir (Levemir Vial) 33 units SQ [facility] Last Admin: 12/18/17 21:11 Dose: 33 units Isosorbide Mononitrate (Imdur -) 60 mg PO DAILY [facility] Last Admin: 12/18/17 10:08 Dose: 60 mg Lactulose (Cephulac (Oral Use)) 30 gm PO [facility] Last Admin: 12/18/17 21:17 Dose: Not Given Metoprolol Tartrate (Lopressor -) 50 mg PO TID [facility] Last Admin: 12/19/17 06:04 Dose: 50 mg Multivitamins/Minerals/Vitamin C (Tab-A-Vit -) 1 tab PO DAILY [facility] Last Admin: 12/18/17 10:09 Dose: 1 tab Nifedipine (Procardia Xl -) 90 mg PO DAILY [facility] Last Admin: 12/18/17 10:09 Dose: 90 mg Oxycodone HCl (Roxicodone -) 10 mg PO Q6H PRN PRN Reason: PAIN LEVEL 6-10 Last Admin: 12/19/17 06:31 Dose: 10 mg Polysaccharide Iron Complex (Niferex-150 -) 150 mg PO DAILY [facility] Last Admin: 12/18/17 10:51 Dose: 150 mg Ranitidine HCl (Zantac -) 150 mg PO DAILY [facility] Last Admin: 12/18/17 10:10 Dose: 150 mg Silver Sulfadiazine (Silvadene -) 1 applic TP BID [facility] Last Admin: 12/18/17 21:12 Dose: 1 applic Warfarin Sodium (Coumadin -) 7.5 mg PO DAILY@1800 [facility] Last Admin: 12/18/17 17:49 Dose: 7.5 mg CBC, BMP 12/19/17 08:19 12/19/17 08:19 INR, PTT INR 2.12 (0.83-1.09) H 12/19/17 08:19 Physical Exam. awake/ morbidly obese. S1S2 IRREGULAR lung decreased at bases abd- soft, NT edema++ decreasing PLAN s/p perma cath HD per renal Coumadin --inr therapeutic -- will decrease dose continue with present care . 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 awaiting spot for out pt dialysis Anticipate d/c tomorrow will follow Problem List - Problems (1) Anemia requiring transfusions Code(s): D64.9 - ANEMIA, UNSPECIFIED (2) Encounter regarding vascular access for dialysis for end-stage renal disease Code(s): N18.6 - END STAGE RENAL DISEASE; Z99.2 - DEPENDENCE ON RENAL DIALYSIS (3) Afib Code(s): I48.91 - UNSPECIFIED ATRIAL FIBRILLATION Qualifiers: Atrial fibrillation type: persistent Qualified Code(s): I48.1 - Persistent atrial fibrillation (4) CKD (chronic kidney disease) stage 5, GFR less than 15 ml/min Code(s): N18.5 - CHRONIC KIDNEY DISEASE, STAGE 5 (5) Diabetes mellitus Code(s): E11.9 - TYPE 2 DIABETES MELLITUS WITHOUT COMPLICATIONS Qualifiers: Chronic kidney disease stage: unspecified stage (6) Functional quadriplegia Code(s): R53.2 - FUNCTIONAL QUADRIPLEGIA (7) Morbid obesity Code(s): E66.01 - MORBID (SEVERE) OBESITY DUE TO EXCESS CALORIES
[2017-12-19] MEDS: IRON POLYSACCHARIDES 150 MG CAPSULE PO SCH (13:32)
[2017-12-19] MEDS: RANITIDINE HCL 150 MG TABLET (FP) PO SCH (13:32)
[2017-12-19] MEDS: NIFEdipine E.R. 90 MG TABLET (FP) PO SCH (13:32)
[2017-12-19] MEDS: CHOLECALCIFEROL (VITAMIN D3) 1,000 UNIT TABLET (FP) PO SCH (13:32)
[2017-12-19] MEDS: FOLIC ACID 1 MG TABLET (FP) PO SCH (13:32)
[2017-12-19] MEDS: ISOSORBIDE MONONITRATE 60 MG TAB.SR.24H (FP) PO SCH (13:33)
[2017-12-19] MEDS: MULTIVITAMINS (DAILY MVI) TABLET (FP) PO SCH (13:33)
[2017-12-19] MEDS: BUDESONIDE/FORMETEROL FUMARATE 160/4.5 mcg INHALER IH SCH ×2 (13:34→21:47)
[2017-12-19] MEDS: SILVER SULFADIAZINE 1% TOP CREAM 50 GM JAR TP SCH ×2 (13:34→21:47)
[2017-12-19] MEDS: FUROSEMIDE 40 MG TABLET (FP) PO SCH (13:34)
[2017-12-19] MEDS ORDERED: EPOETIN ALFA 10,000 UNIT/1 ML VIAL SQ ONE (14:14)
--- NOTE | 2017-12-19 14:14 | PN ---
Progress Note, Physician History of Present Illness: Pt seen and examined at bedside. She is awake and alert. She feels that her edema is getting better. - Current Medication List Current Medications: Active Medications Acetaminophen (Tylenol -) 650 mg PO Q4H PRN PRN Reason: PAIN LEVEL 1-5 Last Admin: 12/15/17 05:43 Dose: 650 mg Atorvastatin Calcium (Lipitor -) 10 mg PO [facility] Last Admin: 12/18/17 21:11 Dose: 10 mg Bisacodyl (Dulcolax -) 5 mg PO [facility] Last Admin: 12/18/17 21:11 Dose: 5 mg Budesonide/Formoterol Fumarate (Symbicort 160/4.5mcg -) 1 puff IH BID [facility] Last Admin: 12/19/17 13:34 Dose: 1 puff Cholecalciferol (Vitamin D3 -) 1,000 unit PO DAILY [facility] Last Admin: 12/19/17 13:32 Dose: 1,000 unit Docusate Sodium (Colace -) 100 mg PO [facility] Last Admin: 12/18/17 21:11 Dose: 100 mg Folic Acid (Folic Acid -) 1 mg PO DAILY [facility] Last Admin: 12/19/17 13:32 Dose: 1 mg Furosemide (Lasix -) 80 mg PO DAILY [facility] Last Admin: 12/19/17 13:34 Dose: Not Given Gabapentin (Neurontin -) 100 mg PO TID [facility] Last Admin: 12/19/17 13:44 Dose: 100 mg Sodium Chloride (Normal Saline -) 250 mls @ 3,000 mls/hr IV PRN PRN PRN Reason: Hypotension during Dialysis Stop: 12/19/17 15:10 Insulin Aspart (Novolog Vial) 5 units SQ TIDAC [facility] Last Admin: 12/19/17 13:45 Dose: 5 units Insulin Detemir (Levemir Vial) 33 units SQ HS [facility] Last Admin: 12/18/17 21:11 Dose: 33 units Isosorbide Mononitrate (Imdur -) 60 mg PO DAILY [facility] Last Admin: 12/19/17 13:33 Dose: 60 mg Lactulose (Cephulac (Oral Use)) 30 gm PO [facility] Last Admin: 12/18/17 21:17 Dose: Not Given Metoprolol Tartrate (Lopressor -) 50 mg PO TID [facility] Last Admin: 12/19/17 13:44 Dose: 50 mg Multivitamins/Minerals/Vitamin C (Tab-A-Vit -) 1 tab PO DAILY [facility] Last Admin: 12/19/17 13:33 Dose: 1 tab Nifedipine (Procardia Xl -) 90 mg PO DAILY [facility] Last Admin: 12/19/17 13:32 Dose: 90 mg Oxycodone HCl (Roxicodone -) 10 mg PO Q6H PRN PRN Reason: PAIN LEVEL 6-10 Last Admin: 12/19/17 06:31 Dose: 10 mg Polysaccharide Iron Complex (Niferex-150 -) 150 mg PO DAILY [facility] Last Admin: 12/19/17 13:32 Dose: 150 mg Ranitidine HCl (Zantac -) 150 mg PO DAILY [facility] Last Admin: 12/19/17 13:32 Dose: 150 mg Silver Sulfadiazine (Silvadene -) 1 applic TP BID [facility] Last Admin: 12/19/17 13:34 Dose: 1 applic Warfarin Sodium (Coumadin -) 5 mg PO DAILY@1800 [facility] - Objective Vital Signs: Vital Signs Temperature 98.9 F 12/19/17 09:40 Pulse Rate 79 12/19/17 13:05 Respiratory Rate 18 12/19/17 13:05 Blood Pressure 150/70 12/19/17 13:05 O2 Sat by Pulse Oximetry (%) 100 12/19/17 09:00 Constitutional: Yes: Calm Eyes: Yes: Conjunctiva Clear HENT: Yes: Atraumatic Cardiovascular: Yes: S1, S2 Respiratory: Yes: On Nasal O2 Gastrointestinal: Yes: Soft, Abdomen, Obese Genitourinary: Yes: Incontinence Musculoskeletal: Yes: Muscle Weakness Edema: LLE: Trace, RLE: Trace Integumentary: Yes: Venous Stasis Changes Neurological: Yes: Oriented Psychiatric: Yes: Oriented Labs: CBC, BMP 12/19/17 08:19 12/19/17 08:19 INR, PTT INR 2.12 (0.83-1.09) H 12/19/17 08:19 Problem List - Problems (1) Anemia requiring transfusions Code(s): D64.9 - ANEMIA, UNSPECIFIED (2) Afib Code(s): I48.91 - UNSPECIFIED ATRIAL FIBRILLATION Qualifiers: Atrial fibrillation type: persistent Qualified Code(s): I48.1 - Persistent atrial fibrillation (3) Anemia Code(s): D64.9 - ANEMIA, UNSPECIFIED Qualifiers: Anemia type: unspecified type Qualified Code(s): D64.9 - Anemia, unspecified (4) CHF (congestive heart failure) Code(s): I50.9 - HEART FAILURE, UNSPECIFIED (5) CHF (congestive heart failure) Code(s): I50.9 - HEART FAILURE, UNSPECIFIED (6) CKD (chronic kidney disease) Code(s): N18.9 - CHRONIC KIDNEY DISEASE, UNSPECIFIED Qualifiers: Chronic kidney disease stage: unspecified stage Qualified Code(s): N18.9 - Chronic kidney disease, unspecified (7) CKD (chronic kidney disease) stage 5, GFR less than 15 ml/min Code(s): N18.5 - CHRONIC KIDNEY DISEASE, STAGE 5 Assessment/Plan Current Medications Generic Name Dose Route Start Last Admin Trade Name Freq PRN Reason Stop Dose Admin Acetaminophen 650 mg 12/14/17 16:30 12/15/17 05:43 Tylenol - PO 650 mg Q4H PRN Administration PAIN LEVEL 1-5 Atorvastatin Calcium 10 mg 12/14/17 22:00 12/18/17 21:11 Lipitor - PO 10 mg HS [facility] Administration Bisacodyl 5 mg 12/14/17 22:00 12/18/17 21:11 Dulcolax - PO 5 mg HS [facility] Administration Budesonide/Formoterol Fumarate 1 puff 12/14/17 22:00 12/19/17 13:34 Symbicort 160/4.5mcg - IH 1 puff BID [facility] Administration Cholecalciferol 1,000 unit 12/15/17 10:00 12/19/17 13:32 Vitamin D3 - PO 1,000 unit DAILY [facility] Administration Docusate Sodium 100 mg 12/14/17 22:00 12/18/17 21:11 Colace - PO 100 mg HS [facility] Administration Folic Acid 1 mg 12/15/17 10:00 12/19/17 13:32 Folic Acid - PO 1 mg DAILY [facility] Administration Furosemide 80 mg 12/17/17 10:00 12/19/17 13:34 Lasix - PO Not Given DAILY [facility] Gabapentin 100 mg 12/14/17 22:00 12/19/17 13:44 Neurontin - PO 100 mg TID [facility] Administration Sodium Chloride 250 mls @ 3,000 mls/hr 12/18/17 15:10 Normal Saline - IV 12/19/17 15:10 PRN PRN Hypotension during Dialysis Insulin Aspart 5 units 12/14/17 16:30 12/19/17 13:45 Novolog Vial SQ 5 units TIDAC [facility] Administration Insulin Detemir 33 units 12/14/17 22:00 12/18/17 21:11 Levemir Vial SQ 33 units HS [facility] Administration Isosorbide Mononitrate 60 mg 12/15/17 10:00 12/19/17 13:33 Imdur - PO 60 mg DAILY [facility] Administration Lactulose 30 gm 12/14/17 22:00 12/18/17 21:17 Cephulac (Oral Use) PO Not Given HS [facility] Metoprolol Tartrate 50 mg 12/14/17 22:00 12/19/17 13:44 Lopressor - PO 50 mg TID [facility] Administration Multivitamins/Minerals/Vitamin C 1 tab 12/15/17 10:00 12/19/17 13:33 Tab-A-Vit - PO 1 tab DAILY [facility] Administration Nifedipine 90 mg 12/15/17 10:00 12/19/17 13:32 Procardia Xl - PO 90 mg DAILY [facility] Administration Oxycodone HCl 10 mg 12/18/17 16:08 12/19/17 06:31 Roxicodone - PO 10 mg Q6H PRN Administration PAIN LEVEL 6-10 Polysaccharide Iron Complex 150 mg 12/15/17 10:00 12/19/17 13:32 Niferex-150 - PO 150 mg DAILY [facility] Administration Ranitidine HCl 150 mg 12/15/17 10:00 12/19/17 13:32 Zantac - PO 150 mg DAILY [facility] Administration Silver Sulfadiazine 1 applic 12/14/17 22:00 12/19/17 13:34 Silvadene - TP 1 applic BID [facility] Administration Warfarin Sodium 5 mg 12/19/17 13:21 Coumadin - PO DAILY@1800 [facility] Impression 1. CKD 2. obesity 3. hyperlipidemia 4. HTN 5. DM 6. CHF 7. CAD 8. anemia 9. a-fib 10. iron deficiency 11. r/o TIA 12. hyperkalemia Plan - pt getting HD today - will need HD to be set up as outpt - furosemide on non HD days - epogen for anemia - vascular follow up - will follow
[2017-12-19] MEDS: WARFARIN NA 5 MG TABLET (UD) PO SCH (18:31)
[2017-12-19] MEDS: DOCUSATE SODIUM 100 MG CAPSULE (FP) PO SCH (21:28)
[2017-12-19] MEDS: BISACODYL 5 MG TABLET.DR (FP) PO SCH (21:28)
[2017-12-19] MEDS: LACTULOSE 20 GM/30 ML UDC (FOR ORAL USE ONLY) PO SCH (21:28)
[2017-12-19] MEDS: ATORVASTATIN CA 10 MG TABLET (FP) PO SCH (21:28)
[2017-12-19] MEDS: INSULIN (LEVEMIR) 100 UNITS/ML UNITS SQ SCH (21:29)
[2017-12-19] MEDS ORDERED: PT OWN MED DRAWER 7, Y5N ONE (21:46)
[2017-12-20] MEDS: METOPROLOL TARTRATE 50 MG TABLET (FP) PO SCH ×3 (06:09→21:20)
[2017-12-20] MEDS: GABAPENTIN 100 MG CAPSULE (FP) PO SCH ×3 (06:09→21:20)
[2017-12-20] MEDS: INSULIN (NOVOLOG) ASPART 100 UNITS/ML 10ML VIAL SQ SCH ×3 (06:32→17:13)
[2017-12-20] MEDS ORDERED: PT OWN MED DRAWER 7, Y5N ONE ×2 (06:35→21:08)
[2017-12-20 08:28] LABS: BASO % 0.7 % (0-2.0); EOS % 1.9 % (0-4.5); HEMATOCRIT 26.2 % (32.4-45.2); HEMOGLOBIN 8.4 GM/dL (10.7-15.3); LYMPH % 19.7 % (8-40); MCH 28.3 pg (25.7-33.7); MCHC 32.2 g/dl (32.0-36.0); MEAN CELL VOLUME 87.8 fl (80-96); MEAN PLT VOLUME 8.3 fl (7.5-11.1); MONO % 8.7 % (3.8-10.2); PLATELET COUNT 204 K/MM3 (134-434); RBC 2.99 M/mm3 (3.60-5.2); RDW 15.4 % (11.6-15.6); WHITE BLOOD COUNT 10.8 K/mm3 (4.0-10.0)
[2017-12-20 08:47] LABS: ALBUMIN 2.4 g/dl (3.4-5.0); ALK PHOS 53 U/L (45-117); ANION GAP 10 MMOL/L (8-16); BILIRUBIN,TOTAL 0.3 mg/dL (0.2-1.0); BLOOD UREA NITROGEN 35 mg/dL (7-18); CHLORIDE 105 mmol/L (98-107); CO2 31 mmol/L (21-32); CREATININE 2.4 mg/dL (0.55-1.02); GLUCOSE,RANDOM 130 mg/dL (74-106); POTASSIUM 3.6 mmol/L (3.5-5.1); SGOT/AST 9 U/L (15-37); SGPT/ALT 10 U/L (12-78); SODIUM 146 mmol/L (136-145); TOT PROT 5.6 g/dl (6.4-8.2)
[2017-12-20] MEDS: MULTIVITAMINS (DAILY MVI) TABLET (FP) PO SCH (10:07)
[2017-12-20] MEDS: FOLIC ACID 1 MG TABLET (FP) PO SCH (10:07)
[2017-12-20] MEDS: RANITIDINE HCL 150 MG TABLET (FP) PO SCH (10:07)
[2017-12-20] MEDS: CHOLECALCIFEROL (VITAMIN D3) 1,000 UNIT TABLET (FP) PO SCH (10:07)
[2017-12-20] MEDS: FUROSEMIDE 40 MG TABLET (FP) PO SCH (10:08)
[2017-12-20] MEDS: BUDESONIDE/FORMETEROL FUMARATE 160/4.5 mcg INHALER IH SCH ×2 (10:08→21:21)
[2017-12-20] MEDS: ISOSORBIDE MONONITRATE 60 MG TAB.SR.24H (FP) PO SCH (10:08)
[2017-12-20] MEDS: SILVER SULFADIAZINE 1% TOP CREAM 50 GM JAR TP SCH ×2 (10:08→21:21)
--- NOTE | 2017-12-20 11:19 | PN ---
Progress Note (short form) - Note Progress Note: no SOB feels well no complaints pt is anxious about changing NH due to dialysis Vital Signs - 24 hr 12/19/17 12/19/17 12/20/17 21:00 22:17 06:00 Temperature 99.0 F 99.0 F Pulse Rate 80 77 Respiratory 20 Rate Blood Pressure 148/70 137/61 O2 Sat by Pulse 100 Oximetry (%) 12/20/17 12/20/17 12/20/17 08:30 09:00 14:38 Temperature 98.5 F 98.4 F Pulse Rate 71 82 Respiratory 20 20 Rate Blood Pressure 125/61 120/68 O2 Sat by Pulse 100 Oximetry (%) Current Medications Generic Name Dose Route Start Last Admin Trade Name Freq PRN Reason Stop Dose Admin Acetaminophen 650 mg 12/14/17 16:30 12/15/17 05:43 Tylenol - PO 650 mg Q4H PRN Administration PAIN LEVEL 1-5 Atorvastatin Calcium 10 mg 12/14/17 22:00 12/19/17 21:28 Lipitor - PO 10 mg HS [facility] Administration Bisacodyl 5 mg 12/14/17 22:00 12/19/17 21:28 Dulcolax - PO Not Given HS [facility] Budesonide/Formoterol Fumarate 1 puff 12/14/17 22:00 12/20/17 10:08 Symbicort 160/4.5mcg - IH 1 puff BID [facility] Administration Cholecalciferol 1,000 unit 12/15/17 10:00 12/20/17 10:07 Vitamin D3 - PO 1,000 unit DAILY [facility] Administration Docusate Sodium 100 mg 12/14/17 22:00 12/19/17 21:28 Colace - PO Not Given HS [facility] Epoetin [place] 10,000 unit 12/19/17 14:14 Procrit - SQ 12/19/17 14:15 ONCE ONE Epoetin [place] 12,000 unit 12/21/17 11:42 Epogen - IVPUSH 12/21/17 11:43 ONCE ONE Folic Acid 1 mg 12/15/17 10:00 12/20/17 10:07 Folic Acid - PO 1 mg DAILY [facility] Administration Furosemide 80 mg 12/17/17 10:00 12/20/17 10:08 Lasix - PO 80 mg DAILY [facility] Administration Gabapentin 100 mg 12/14/17 22:00 12/20/17 14:36 Neurontin - PO 100 mg TID [facility] Administration Sodium Chloride 250 mls @ 3,000 mls/hr 12/18/17 15:10 Normal Saline - IV 12/19/17 15:10 PRN PRN Hypotension during Dialysis Sodium Chloride 250 mls @ 3,000 mls/hr 12/20/17 11:42 Normal Saline - IV 12/21/17 11:42 PRN PRN Hypotension during Dialysis Iron Sucrose 100 mg/ Sodium 100 mls @ 200 mls/hr 12/21/17 11:42 Chloride IVPB 12/21/17 12:11 ONCE ONE Insulin Aspart 5 units 12/14/17 16:30 12/20/17 17:13 Novolog Vial SQ 5 units TIDAC [facility] Administration Insulin Detemir 33 units 12/14/17 22:00 12/19/17 21:29 Levemir Vial SQ 33 units HS [facility] Administration Isosorbide Mononitrate 60 mg 12/15/17 10:00 12/20/17 10:08 Imdur - PO 60 mg DAILY [facility] Administration Lactulose 30 gm 12/14/17 22:00 12/19/17 21:28 Cephulac (Oral Use) PO Not Given HS [facility] Metoprolol Tartrate 50 mg 12/14/17 22:00 12/20/17 14:36 Lopressor - PO 50 mg TID [facility] Administration Multivitamins/Minerals/Vitamin C 1 tab 12/15/17 10:00 12/20/17 10:07 Tab-A-Vit - PO 1 tab DAILY [facility] Administration Nifedipine 90 mg 12/15/17 10:00 12/20/17 12:07 Procardia Xl - PO 90 mg DAILY [facility] Administration Oxycodone HCl 10 mg 12/18/17 16:08 12/19/17 22:58 Roxicodone - PO 10 mg Q6H PRN Administration PAIN LEVEL 6-10 Polysaccharide Iron Complex 150 mg 12/15/17 10:00 12/20/17 12:07 Niferex-150 - PO 150 mg DAILY [facility] Administration Ranitidine HCl 150 mg 12/15/17 10:00 12/20/17 10:07 Zantac - PO 150 mg DAILY [facility] Administration Silver Sulfadiazine 1 applic 12/14/17 22:00 12/20/17 10:08 Silvadene - TP 1 applic BID [facility] Administration Simethicone 80 mg 12/20/17 11:33 Mylicon - PO QID PRN DYSPEPSIA Warfarin Sodium 5 mg 12/19/17 13:21 12/20/17 17:16 Coumadin - PO 5 mg DAILY@1800 [facility] Administration Laboratory Results - last 24 hr 12/19/17 12/20/17 12/20/17 21:26 06:06 07:55 WBC 10.8 H RBC 2.99 L Hgb 8.4 L Hct 26.2 L MCV 87.8 MCH 28.3 MCHC 32.2 RDW 15.4 Plt Count 204 MPV 8.3 Absolute Neuts (auto) 7.5 Neutrophils % 69.0 Lymphocytes % 19.7 D Monocytes % 8.7 Eosinophils % 1.9 Basophils % 0.7 Nucleated RBC % 0 Sodium Potassium Chloride Carbon Dioxide Anion Gap BUN Creatinine Creat Clearance w eGFR POC Glucometer 251 173 Random Glucose Calcium Total Bilirubin AST ALT Alkaline Phosphatase Total Protein Albumin 12/20/17 12/20/17 12/20/17 07:55 11:14 17:10 WBC RBC Hgb Hct MCV MCH MCHC RDW Plt Count MPV Absolute Neuts (auto) Neutrophils % Lymphocytes % Monocytes % Eosinophils % Basophils % Nucleated RBC % Sodium 146 H Potassium 3.6 Chloride 105 Carbon Dioxide 31 Anion Gap 10 BUN 35 H D Creatinine 2.4 H Creat Clearance w eGFR 19.84 POC Glucometer 130 228 Random Glucose 130 H Calcium 8.0 L Total Bilirubin 0.3 AST 9 L ALT 10 L Alkaline Phosphatase 53 Total Protein 5.6 L Albumin 2.4 L S1S2 IRREGULAR lung decreased obese abd- soft, NT edema++ decreasing PLAN s/p permacath HD per renal Coumadin -- continue continue with present care dc planning to [place] -- case folder will need to make arrangements for outpt HD
[2017-12-20] MEDS ORDERED: SIMETHICONE 80 MG TAB.CHEW (FP) PO PRN (11:33)
--- NOTE | 2017-12-20 11:42 | PN ---
Progress Note, Physician History of Present Illness: Pt seen and examined at bedside. She is awake and alert. She is eager to be discharged however we are waiting on HD placement. - Current Medication List Current Medications: Active Medications Acetaminophen (Tylenol -) 650 mg PO Q4H PRN PRN Reason: PAIN LEVEL 1-5 Last Admin: 12/15/17 05:43 Dose: 650 mg Atorvastatin Calcium (Lipitor -) 10 mg PO HS [facility] Last Admin: 12/19/17 21:28 Dose: 10 mg Bisacodyl (Dulcolax -) 5 mg PO HS [facility] Last Admin: 12/19/17 21:28 Dose: Not Given Budesonide/Formoterol Fumarate (Symbicort 160/4.5mcg -) 1 puff IH BID [facility] Last Admin: 12/20/17 10:08 Dose: 1 puff Cholecalciferol (Vitamin D3 -) 1,000 unit PO DAILY [facility] Last Admin: 12/20/17 10:07 Dose: 1,000 unit Docusate Sodium (Colace -) 100 mg PO [facility] Last Admin: 12/19/17 21:28 Dose: Not Given Epoetin [place] (Procrit -) 10,000 unit SQ ONCE ONE Stop: 12/19/17 14:15 Folic Acid (Folic Acid -) 1 mg PO DAILY [facility] Last Admin: 12/20/17 10:07 Dose: 1 mg Furosemide (Lasix -) 80 mg PO DAILY [facility] Last Admin: 12/20/17 10:08 Dose: 80 mg Gabapentin (Neurontin -) 100 mg PO TID [facility] Last Admin: 12/20/17 06:09 Dose: 100 mg Sodium Chloride (Normal Saline -) 250 mls @ 3,000 mls/hr IV PRN PRN PRN Reason: Hypotension during Dialysis Stop: 12/19/17 15:10 Insulin Aspart (Novolog Vial) 5 units SQ TIDAC [facility] Last Admin: 12/20/17 06:32 Dose: 5 units Insulin Detemir (Levemir Vial) 33 units SQ HS [facility] Last Admin: 12/19/17 21:29 Dose: 33 units Isosorbide Mononitrate (Imdur -) 60 mg PO DAILY [facility] Last Admin: 12/20/17 10:08 Dose: 60 mg Lactulose (Cephulac (Oral Use)) 30 gm PO [facility] Last Admin: 12/19/17 21:28 Dose: Not Given Metoprolol Tartrate (Lopressor -) 50 mg PO TID [facility] Last Admin: 12/20/17 06:09 Dose: 50 mg Multivitamins/Minerals/Vitamin C (Tab-A-Vit -) 1 tab PO DAILY [facility] Last Admin: 12/20/17 10:07 Dose: 1 tab Nifedipine (Procardia Xl -) 90 mg PO DAILY [facility] Last Admin: 12/19/17 13:32 Dose: 90 mg Oxycodone HCl (Roxicodone -) 10 mg PO Q6H PRN PRN Reason: PAIN LEVEL 6-10 Last Admin: 12/19/17 22:58 Dose: 10 mg Polysaccharide Iron Complex (Niferex-150 -) 150 mg PO DAILY [facility] Last Admin: 12/19/17 13:32 Dose: 150 mg Ranitidine HCl (Zantac -) 150 mg PO DAILY [facility] Last Admin: 12/20/17 10:07 Dose: 150 mg Silver Sulfadiazine (Silvadene -) 1 applic TP BID [facility] Last Admin: 12/20/17 10:08 Dose: 1 applic Simethicone (Mylicon -) 80 mg PO QID PRN PRN Reason: DYSPEPSIA Warfarin Sodium (Coumadin -) 5 mg PO DAILY@1800 [facility] Last Admin: 12/19/17 18:31 Dose: 5 mg - Objective Vital Signs: Vital Signs Temperature 99.0 F 12/20/17 06:00 Pulse Rate 77 12/20/17 06:00 Respiratory Rate 20 12/19/17 22:17 Blood Pressure 137/61 12/20/17 06:00 O2 Sat by Pulse Oximetry (%) 100 12/19/17 21:00 Constitutional: Yes: Calm Cardiovascular: Yes: S1, S2 Respiratory: Yes: CTA Bilaterally Gastrointestinal: Yes: Soft, Abdomen, Obese Genitourinary: Yes: Incontinence Musculoskeletal: Yes: Muscle Weakness Edema: Yes Edema: LLE: Trace, RLE: Trace Integumentary: Yes: Venous Stasis Changes Neurological: Yes: Oriented Psychiatric: Yes: Oriented Labs: CBC, BMP 12/20/17 07:55 12/20/17 07:55 INR, PTT INR 2.12 (0.83-1.09) H 12/19/17 08:19 Problem List - Problems (1) Anemia requiring transfusions Code(s): D64.9 - ANEMIA, UNSPECIFIED (2) Afib Code(s): I48.91 - UNSPECIFIED ATRIAL FIBRILLATION Qualifiers: Atrial fibrillation type: persistent Qualified Code(s): I48.1 - Persistent atrial fibrillation (3) Anemia Code(s): D64.9 - ANEMIA, UNSPECIFIED Qualifiers: Anemia type: unspecified type Qualified Code(s): D64.9 - Anemia, unspecified (4) CHF (congestive heart failure) Code(s): I50.9 - HEART FAILURE, UNSPECIFIED (5) CHF (congestive heart failure) Code(s): I50.9 - HEART FAILURE, UNSPECIFIED (6) CKD (chronic kidney disease) Code(s): N18.9 - CHRONIC KIDNEY DISEASE, UNSPECIFIED Qualifiers: Chronic kidney disease stage: unspecified stage Qualified Code(s): N18.9 - Chronic kidney disease, unspecified (7) CKD (chronic kidney disease) stage 5, GFR less than 15 ml/min Code(s): N18.5 - CHRONIC KIDNEY DISEASE, STAGE 5 Assessment/Plan Current Medications Generic Name Dose Route Start Last Admin Trade Name Freq PRN Reason Stop Dose Admin Acetaminophen 650 mg 12/14/17 16:30 12/15/17 05:43 Tylenol - PO 650 mg Q4H PRN Administration PAIN LEVEL 1-5 Atorvastatin Calcium 10 mg 12/14/17 22:00 12/19/17 21:28 Lipitor - PO 10 mg HS [facility] Administration Bisacodyl 5 mg 12/14/17 22:00 12/19/17 21:28 Dulcolax - PO Not Given HS [facility] Budesonide/Formoterol Fumarate 1 puff 12/14/17 22:00 12/20/17 10:08 Symbicort 160/4.5mcg - IH 1 puff BID [facility] Administration Cholecalciferol 1,000 unit 12/15/17 10:00 12/20/17 10:07 Vitamin D3 - PO 1,000 unit DAILY [facility] Administration Docusate Sodium 100 mg 12/14/17 22:00 12/19/17 21:28 Colace - PO Not Given HS [facility] Epoetin [place] 10,000 unit 12/19/17 14:14 Procrit - SQ 12/19/17 14:15 ONCE ONE Folic Acid 1 mg 12/15/17 10:00 12/20/17 10:07 Folic Acid - PO 1 mg DAILY [facility] Administration Furosemide 80 mg 12/17/17 10:00 12/20/17 10:08 Lasix - PO 80 mg DAILY [facility] Administration Gabapentin 100 mg 12/14/17 22:00 12/20/17 06:09 Neurontin - PO 100 mg TID [facility] Administration Sodium Chloride 250 mls @ 3,000 mls/hr 12/18/17 15:10 Normal Saline - IV 12/19/17 15:10 PRN PRN Hypotension during Dialysis Insulin Aspart 5 units 12/14/17 16:30 12/20/17 06:32 Novolog Vial SQ 5 units TIDAC [facility] Administration Insulin Detemir 33 units 12/14/17 22:00 12/19/17 21:29 Levemir Vial SQ 33 units HS [facility] Administration Isosorbide Mononitrate 60 mg 12/15/17 10:00 12/20/17 10:08 Imdur - PO 60 mg DAILY [facility] Administration Lactulose 30 gm 12/14/17 22:00 12/19/17 21:28 Cephulac (Oral Use) PO Not Given HS [facility] Metoprolol Tartrate 50 mg 12/14/17 22:00 12/20/17 06:09 Lopressor - PO 50 mg TID [facility] Administration Multivitamins/Minerals/Vitamin C 1 tab 12/15/17 10:00 12/20/17 10:07 Tab-A-Vit - PO 1 tab DAILY [facility] Administration Nifedipine 90 mg 12/15/17 10:00 12/19/17 13:32 Procardia Xl - PO 90 mg DAILY [facility] Administration Oxycodone HCl 10 mg 12/18/17 16:08 12/19/17 22:58 Roxicodone - PO 10 mg Q6H PRN Administration PAIN LEVEL 6-10 Polysaccharide Iron Complex 150 mg 12/15/17 10:00 12/19/17 13:32 Niferex-150 - PO 150 mg DAILY [facility] Administration Ranitidine HCl 150 mg 12/15/17 10:00 12/20/17 10:07 Zantac - PO 150 mg DAILY [facility] Administration Silver Sulfadiazine 1 applic 12/14/17 22:00 12/20/17 10:08 Silvadene - TP 1 applic BID [facility] Administration Simethicone 80 mg 12/20/17 11:33 Mylicon - PO QID PRN DYSPEPSIA Warfarin Sodium 5 mg 12/19/17 13:21 12/19/17 18:31 Coumadin - PO 5 mg DAILY@1800 [facility] Administration Impression 1. CKD 2. obesity 3. hyperlipidemia 4. HTN 5. DM 6. CHF 7. CAD 8. anemia 9. a-fib 10. iron deficiency 11. r/o TIA 12. hyperkalemia Plan - HD in am - pending outpt HD placement - called several HD units and transfer into an HD chair is the problem - spoke to pt about considering and rehab facility with an HD unit on site, at least until she is strong enough to stand and then perhaps she can transfer back to [facility] and go for outpt HD - furosemide on non HD days - epogen for anemia - vascular follow up, will need fistula - will follow
[2017-12-20] MEDS: NIFEdipine E.R. 90 MG TABLET (FP) PO SCH (12:07)
[2017-12-20] MEDS: IRON POLYSACCHARIDES 150 MG CAPSULE PO SCH (12:07)
[2017-12-20 15:24] VITALS: BMI 51.6
[2017-12-20] MEDS: WARFARIN NA 5 MG TABLET (UD) PO SCH (17:16)
[2017-12-20] MEDS: INSULIN (LEVEMIR) 100 UNITS/ML UNITS SQ SCH (21:19)
[2017-12-20] MEDS: DOCUSATE SODIUM 100 MG CAPSULE (FP) PO SCH (21:20)
[2017-12-20] MEDS: ATORVASTATIN CA 10 MG TABLET (FP) PO SCH (21:20)
[2017-12-20] MEDS: BISACODYL 5 MG TABLET.DR (FP) PO SCH (21:20)
[2017-12-20] MEDS: LACTULOSE 20 GM/30 ML UDC (FOR ORAL USE ONLY) PO SCH (21:27)
[2017-12-21] MEDS: oxyCODONE HCL 5 MG TABLET PO PRN ×2 (02:50→14:31)
[2017-12-21] MEDS: INSULIN (NOVOLOG) ASPART 100 UNITS/ML 10ML VIAL SQ SCH ×3 (06:29→17:28)
[2017-12-21] MEDS: GABAPENTIN 100 MG CAPSULE (FP) PO SCH ×2 (06:29→14:28)
[2017-12-21] MEDS: METOPROLOL TARTRATE 50 MG TABLET (FP) PO SCH ×2 (06:29→14:28)
[2017-12-21] MEDS ORDERED: INSULIN (LEVEMIR) 100 UNITS/ML UNITS SQ ONE (06:44)
[2017-12-21] MEDS ORDERED: INSULIN (NOVOLOG) ASPART 100 UNITS/ML 10ML VIAL ONE (06:44)
[2017-12-21 08:15] LABS: INR 2.87 (0.83-1.09); PROTHROMBIN TIME (PATIENT) 32.4 SEC (9.7-13.0)
[2017-12-21] MEDS ORDERED: SODIUM CHLORIDE 250 ML IV PRN (09:45)
[2017-12-21] MEDS ORDERED: EPOETIN ALFA 10,000 UNIT, EPOETIN ALFA 2,000 UNIT IVPUSH ONE (09:45)
[2017-12-21] MEDS ORDERED: IRON SUCROSE INJECTION 100 MG in SODIUM CHLORIDE 95 ML IVPB ONE (09:45)
[2017-12-21] MEDS: ACETAMINOPHEN 325 MG TABLET (FP) PO PRN (10:27)
--- NOTE | 2017-12-21 11:09 | DS ---
Physical Examination Vital Signs: Vital Signs Temperature 98.3 F 12/21/17 08:10 Pulse Rate 67 12/21/17 10:15 Respiratory Rate 18 12/21/17 10:15 Blood Pressure 158/55 12/21/17 10:15 O2 Sat by Pulse Oximetry (%) 96 12/21/17 08:35 Constitutional: Yes: No Distress Cardiovascular: Yes: Pulse Irregular Respiratory: Yes: Diminished Gastrointestinal: Yes: Normal Bowel Sounds, Soft. No: Tenderness Edema: Yes Labs: CBC, BMP 12/20/17 07:55 12/20/17 07:55 Discharge Summary Reason For Visit: ENCOUNTER REGARDING VASCULAR ACCESS FOR Current Active Problems Anemia requiring transfusions (Acute) Encounter regarding vascular access for dialysis for end-stage renal disease ( Acute) Normocytic normochromic anemia (Acute) Hospital Course: Admitted with volume overload acute renal failure-- and permacath placed-- pt started dialysis - new to dialysis Seen by Renal Pt tolerating dialysis Clinically better should receive Lasix on non dialysis days stable for dc to NH Condition: Improved - Instructions Referrals: Diana Whitmore MD [Primary Care Provider] - Disposition: HALFWAY FACILITY - Home Medications Comprehensive Discharge Medication List: Ambulatory Orders Ascorbic Acid [C-500] 500 mg PO DAILY 10/14/17 Atorvastatin Calcium 10 mg PO HS 10/14/17 Cholecalciferol (Vitamin D3) [Vitamin D3] 1,000 unit PO DAILY 10/14/17 Docusate Sodium [Colace] 100 mg PO HS 10/14/17 Folic Acid 1 mg PO DAILY 10/14/17 Gabapentin [Neurontin -] 100 mg PO Q8H 10/14/17 Insulin Detemir [Levemir Flextouch] 33 unit SQ HS 10/14/17 Isosorbide Mononitrate 60 mg PO DAILY 10/14/17 Lactulose 30 gm PO HS 10/14/17 Metoprolol Tartrate 50 mg PO TID 10/14/17 Multivitamin [Multiple Vitamins] 1 each PO DAILY 10/14/17 Nifedipine ER [Procardia XL -] 90 mg PO DAILY 10/14/17 Ranitidine HCl 150 mg PO DAILY 10/14/17 Bisacodyl [Bisacodyl -] 5 mg PO HS tablet 11/14/17 Budesonide/Formeterol Fumarate [SYMBICORT 160/4.5mcg -] 1 inh PO DAILY 12/07/17 Epoetin [place] [Procrit] 10,000 unit IJ [id number] 12/07/17 Insulin Aspart [Novolog Flexpen] 5 unit SQ TIDCM 12/07/17 Iron Polysaccharide Complex [Ferrex 150] 150 mg PO DAILY 12/07/17 Magnesium Hydrox 2400MG/30Ml [Milk of Magnesia -] 30 ml PO Q12H PRN 12/07/17 Oxycodone HCl/Acetaminophen [Percocet 5-325 mg Tablet] 2 tab PO TID 12/07/17 Silver Sulfadiazine 1% Top Cr [Silvadene -] 1 applic TP BID 12/07/17 Warfarin Sodium [Coumadin] 4 mg PO HS 12/07/17 Furosemide [Lasix -] 80 mg PO Q48H #20 tablet 12/21/17 Simethicone [Mylicon -] 80 mg PO QID PRN #20 tab.chew 12/21/17
[2017-12-21] MEDS ORDERED: EPOETIN ALFA 2,000 UNIT/1 ML VIAL IVPUSH ONE (11:42)
[2017-12-21] MEDS: MULTIVITAMINS (DAILY MVI) TABLET (FP) PO SCH (12:07)
[2017-12-21] MEDS: FUROSEMIDE 40 MG TABLET (FP) PO SCH (12:07)
[2017-12-21] MEDS: FOLIC ACID 1 MG TABLET (FP) PO SCH (12:07)
[2017-12-21] MEDS: RANITIDINE HCL 150 MG TABLET (FP) PO SCH (12:07)
[2017-12-21] MEDS: CHOLECALCIFEROL (VITAMIN D3) 1,000 UNIT TABLET (FP) PO SCH (12:07)
[2017-12-21] MEDS: ISOSORBIDE MONONITRATE 60 MG TAB.SR.24H (FP) PO SCH (12:07)
[2017-12-21] MEDS: NIFEdipine E.R. 90 MG TABLET (FP) PO SCH (12:08)
[2017-12-21] MEDS: IRON POLYSACCHARIDES 150 MG CAPSULE PO SCH (12:08)
[2017-12-21] MEDS: SILVER SULFADIAZINE 1% TOP CREAM 50 GM JAR TP SCH (12:09)
[2017-12-21] MEDS: BUDESONIDE/FORMETEROL FUMARATE 160/4.5 mcg INHALER IH SCH (12:10)
--- NOTE | 2017-12-21 12:33 | PN ---
Progress Note, Physician History of Present Illness: Pt seen and examined at bedside. She is getting HD. She denies shortness of breath. She is awake and alert. - Current Medication List Current Medications: Active Medications Acetaminophen (Tylenol -) 650 mg PO Q4H PRN PRN Reason: PAIN LEVEL 1-5 Last Admin: 12/21/17 10:27 Dose: 650 mg Atorvastatin Calcium (Lipitor -) 10 mg PO [facility] Last Admin: 12/20/17 21:20 Dose: 10 mg Bisacodyl (Dulcolax -) 5 mg PO [facility] Last Admin: 12/20/17 21:20 Dose: 5 mg Budesonide/Formoterol Fumarate (Symbicort 160/4.5mcg -) 1 puff IH BID [facility] Last Admin: 12/21/17 12:10 Dose: 1 puff Cholecalciferol (Vitamin D3 -) 1,000 unit PO DAILY [facility] Last Admin: 12/21/17 12:07 Dose: 1,000 unit Docusate Sodium (Colace -) 100 mg PO [facility] Last Admin: 12/20/17 21:20 Dose: 100 mg Folic Acid (Folic Acid -) 1 mg PO DAILY [facility] Last Admin: 12/21/17 12:07 Dose: 1 mg Furosemide (Lasix -) 80 mg PO DAILY [facility] Last Admin: 12/21/17 12:07 Dose: 80 mg Gabapentin (Neurontin -) 100 mg PO TID [facility] Last Admin: 12/21/17 06:29 Dose: 100 mg Insulin Aspart (Novolog Vial) 5 units SQ TIDAC [facility] Last Admin: 12/21/17 12:18 Dose: 5 units Insulin Detemir (Levemir Vial) 33 units SQ [facility] Last Admin: 12/20/17 21:19 Dose: 33 units Isosorbide Mononitrate (Imdur -) 60 mg PO DAILY [facility] Last Admin: 12/21/17 12:07 Dose: 60 mg Lactulose (Cephulac (Oral Use)) 30 gm PO [facility] Last Admin: 12/20/17 21:27 Dose: Not Given Metoprolol Tartrate (Lopressor -) 50 mg PO TID [facility] Last Admin: 12/21/17 06:29 Dose: 50 mg Multivitamins/Minerals/Vitamin C (Tab-A-Vit -) 1 tab PO DAILY [facility] Last Admin: 12/21/17 12:07 Dose: 1 tab Nifedipine (Procardia Xl -) 90 mg PO DAILY [facility] Last Admin: 12/21/17 12:08 Dose: 90 mg Oxycodone HCl (Roxicodone -) 10 mg PO Q6H PRN PRN Reason: PAIN LEVEL 6-10 Last Admin: 12/21/17 02:50 Dose: 10 mg Polysaccharide Iron Complex (Niferex-150 -) 150 mg PO DAILY [facility] Last Admin: 12/21/17 12:08 Dose: 150 mg Ranitidine HCl (Zantac -) 150 mg PO DAILY [facility] Last Admin: 12/21/17 12:07 Dose: 150 mg Silver Sulfadiazine (Silvadene -) 1 applic TP BID [facility] Last Admin: 12/21/17 12:09 Dose: 1 applic Simethicone (Mylicon -) 80 mg PO QID PRN PRN Reason: DYSPEPSIA Warfarin Sodium (Coumadin -) 5 mg PO DAILY@1800 [facility] Last Admin: 12/20/17 17:16 Dose: 5 mg - Objective Vital Signs: Vital Signs Temperature 98.3 F 12/21/17 08:10 Pulse Rate 70 12/21/17 11:47 Respiratory Rate 18 12/21/17 11:47 Blood Pressure 133/53 12/21/17 11:47 O2 Sat by Pulse Oximetry (%) 96 12/21/17 08:35 Constitutional: Yes: Calm Eyes: Yes: Conjunctiva Clear HENT: Yes: Atraumatic Neck: Yes: Supple Cardiovascular: Yes: S1, S2 Respiratory: Yes: On Nasal O2 Gastrointestinal: Yes: Normal Bowel Sounds, Soft, Abdomen, Obese Genitourinary: Yes: Incontinence Musculoskeletal: Yes: Muscle Weakness Edema: Yes Edema: LLE: 1+, RLE: 1+ Integumentary: Yes: Venous Stasis Changes Neurological: Yes: Oriented Psychiatric: Yes: Oriented Labs: CBC, BMP 12/20/17 07:55 12/20/17 07:55 INR, PTT INR 2.87 (0.83-1.09) H 12/21/17 06:20 Problem List - Problems (1) Anemia requiring transfusions Code(s): D64.9 - ANEMIA, UNSPECIFIED (2) Afib Code(s): I48.91 - UNSPECIFIED ATRIAL FIBRILLATION Qualifiers: Atrial fibrillation type: persistent Qualified Code(s): I48.1 - Persistent atrial fibrillation (3) Anemia Code(s): D64.9 - ANEMIA, UNSPECIFIED Qualifiers: Anemia type: unspecified type Qualified Code(s): D64.9 - Anemia, unspecified (4) CHF (congestive heart failure) Code(s): I50.9 - HEART FAILURE, UNSPECIFIED (5) CHF (congestive heart failure) Code(s): I50.9 - HEART FAILURE, UNSPECIFIED (6) CKD (chronic kidney disease) Code(s): N18.9 - CHRONIC KIDNEY DISEASE, UNSPECIFIED Qualifiers: Chronic kidney disease stage: unspecified stage Qualified Code(s): N18.9 - Chronic kidney disease, unspecified (7) CKD (chronic kidney disease) stage 5, GFR less than 15 ml/min Code(s): N18.5 - CHRONIC KIDNEY DISEASE, STAGE 5 Assessment/Plan Current Medications Generic Name Dose Route Start Last Admin Trade Name Freq PRN Reason Stop Dose Admin Acetaminophen 650 mg 12/14/17 16:30 12/21/17 10:27 Tylenol - PO 650 mg Q4H PRN Administration PAIN LEVEL 1-5 Atorvastatin Calcium 10 mg 12/14/17 22:00 12/20/17 21:20 Lipitor - PO 10 mg HS BRYANT Administration Bisacodyl 5 mg 12/14/17 22:00 12/20/17 21:20 Dulcolax - PO 5 mg HS BRYANT Administration Budesonide/Formoterol Fumarate 1 puff 12/14/17 22:00 12/21/17 12:10 Symbicort 160/4.5mcg - IH 1 puff BID BRYANT Administration Cholecalciferol 1,000 unit 12/15/17 10:00 12/21/17 12:07 Vitamin D3 - PO 1,000 unit DAILY BRYANT Administration Docusate Sodium 100 mg 12/14/17 22:00 12/20/17 21:20 Colace - PO 100 mg HS BRYANT Administration Folic Acid 1 mg 12/15/17 10:00 12/21/17 12:07 Folic Acid - PO 1 mg DAILY [facility] Administration Furosemide 80 mg 12/17/17 10:00 12/21/17 12:07 Lasix - PO 80 mg DAILY BRYANT Administration Gabapentin 100 mg 12/14/17 22:00 09/12/18 06:29 Neurontin - PO 100 mg TID BRYANT Administration Insulin Aspart 5 units 12/14/17 16:30 12/21/17 12:18 Novolog Vial SQ 5 units TIDAC BRYANT Administration Insulin Detemir 33 units 12/14/17 22:00 12/20/17 21:19 Levemir Vial SQ 33 units HS BRYANT Administration Isosorbide Mononitrate 60 mg 12/15/17 10:00 12/21/17 12:07 Imdur - PO 60 mg DAILY [facility] Administration Lactulose 30 gm 12/14/17 22:00 12/20/17 21:27 Cephulac (Oral Use) PO Not Given HS [facility] Metoprolol Tartrate 50 mg 12/14/17 22:00 12/21/17 06:29 Lopressor - PO 50 mg TID BRYANT Administration Multivitamins/Minerals/Vitamin C 1 tab 12/15/17 10:00 12/21/17 12:07 Tab-A-Vit - PO 1 tab DAILY BRYANT Administration Nifedipine 90 mg 12/15/17 10:00 12/21/17 12:08 Procardia Xl - PO 90 mg DAILY [facility] Administration Oxycodone HCl 10 mg 12/18/17 16:08 12/21/17 02:50 Roxicodone - PO 10 mg Q6H PRN Administration PAIN LEVEL 6-10 Polysaccharide Iron Complex 150 mg 12/15/17 10:00 12/21/17 12:08 Niferex-150 - PO 150 mg DAILY BRYANT Administration Ranitidine HCl 150 mg 12/15/17 10:00 12/21/17 12:07 Zantac - PO 150 mg DAILY BR[facility] Administration Silver Sulfadiazine 1 applic 12/14/17 22:00 12/21/17 12:09 Silvadene - TP 1 applic BID BRYANT Administration Simethicone 80 mg 12/20/17 11:33 Mylicon - PO QID PRN DYSPEPSIA Warfarin Sodium 5 mg 12/19/17 13:21 12/20/17 17:16 Coumadin - PO 5 mg DAILY@1800 [facility] Administration Impression 1. CKD 2. obesity 3. hyperlipidemia 4. HTN 5. DM 6. CHF 7. CAD 8. anemia 9. a-fib 10. iron deficiency 11. r/o TIA 12. hyperkalemia Plan - pt getting HD today - she agrees to go to [facility] for HD - discussed with medical attending - will follow after discharge - cont with epogen on HD - can keep on furosemide on non HD days - vascular follow up, will need fistula. Pt did have vein mapping - will follow
[2017-12-21 14:56] VITALS: BP 148/55; PULSE 78; TEMP 98.7
[2017-12-21] MEDS: WARFARIN NA 5 MG TABLET (UD) PO SCH (17:28)
== END 2017-12-21 19:04 | DRG 811 ==
LOC: JER 11:34 → JERBED 13:51 → J6S 23:46
PROVIDERS: ADMIT Internal Medicine; ATTEND Internal Medicine
PROC: 30233N1 Transfusion of Nonautologous Red Blood Cells into Peripheral Vein, Percutaneous Approach (ICD-10-PCS; principal; 2017-12-09)
PROC: 02H633Z Insertion of Infusion Device into Right Atrium, Percutaneous Approach (ICD-10-PCS; 2017-12-14)
PROC: B244ZZZ Ultrasonography of Right Heart (ICD-10-PCS; 2017-12-14)
PROC: 5A1D70Z Performance of Urinary Filtration, Intermittent, Less than 6 Hours Per Day (ICD-10-PCS; 2017-12-15)
DX: D50.9 Iron deficiency anemia, unspecified (principal); R53.2 Functional quadriplegia; N18.6 End stage renal disease; I48.1 Persistent atrial fibrillation; Z68.43 Body mass index [BMI] 50.0-59.9, adult; I13.2 Hypertensive heart and chronic kidney disease with heart failure and with stage 5 chronic kidney disease, or end stage renal disease; E87.0 Hyperosmolality and hypernatremia; J45.909 Unspecified asthma, uncomplicated; K21.9 Gastro-esophageal reflux disease without esophagitis; J44.9 Chronic obstructive pulmonary disease, unspecified; I11.0 Hypertensive heart disease with heart failure; I50.9 Heart failure, unspecified; Z79.4 Long term (current) use of insulin; E66.01 Morbid (severe) obesity due to excess calories; E78.5 Hyperlipidemia, unspecified; E87.5 Hyperkalemia; L89.152 Pressure ulcer of sacral region, stage 2; E11.22 Type 2 diabetes mellitus with diabetic chronic kidney disease; R79.1 Abnormal coagulation profile; I25.10 Atherosclerotic heart disease of native coronary artery without angina pectoris
CPT/HCPCS: 36415; 36430; 71045-TC-FY; 76000-TC-FY; 80048; 80053; 82272; 82728; 82962; 83540; 83550; 84100; 85025; 85027; 85610; 86704; 86706; 86708; 86803; 86850; 86900; 86901; 86922; 87340; 93005; 93010; 94760; 99285-25; J0885; J1644; J1756; P9038; P9058

== ENCOUNTER 2017-12-29 10:01 | Inpatient (IN) | payer OTHER ==
[2017-12-29] MEDS ORDERED: ONDANSETRON 4 MG/2 ML VIAL ONE (10:15)
[2017-12-29] MEDS ORDERED: SODIUM CHLORIDE 0.9% 1000 ML INFUS.BAG IV ONE (10:45)
[2017-12-29 11:02] LABS: VENOUS PH 7.37 (7.32-7.42); VENOUS PO2 31.7 mmHg (28-48)
[2017-12-29 11:03] LABS: URINE APPEARANCE CLOUDY; URINE BILIRUBIN NEGATIVE (<2.0 mg/dL); URINE COLOR AMBER; URINE GLUCOSE (UA) NEGATIVE (NEGATIVE); URINE KETONE NEGATIVE (NEGATIVE); URINE LEUK ESTERASE TRACE (NEGATIVE); URINE NITRITE NEGATIVE (NEGATIVE); URINE UROBILINOGEN NEGATIVE mg/dL (0.2-1.0)
[2017-12-29 11:05] LABS: BASO % 0.6 % (0-2.0); EOS % 2.3 % (0-4.5); HEMATOCRIT 30.7 % (32.4-45.2); HEMOGLOBIN 10.1 GM/dL (10.7-15.3); LYMPH % 16.8 % (8-40); MCH 28.5 pg (25.7-33.7); MCHC 32.9 g/dl (32.0-36.0); MEAN CELL VOLUME 86.6 fl (80-96); MEAN PLT VOLUME 8.7 fl (7.5-11.1); MONO % 6.8 % (3.8-10.2); NEUT % 73.5 % (42.8-82.8); PLATELET COUNT 244 K/MM3 (134-434); RBC 3.54 M/mm3 (3.60-5.2); RDW 15.3 % (11.6-15.6); WHITE BLOOD COUNT 10.5 K/mm3 (4.0-10.0)
[2017-12-29 11:13] LABS: URINE PROTEIN 1+ (NEGATIVE)
[2017-12-29 11:15] LABS: EPI CELLS MODERATE /HPF (FEW); URINE BACTERIA MANY /hpf (NONE SEEN); URINE HYALINE CAST 53 /lpf; URINE MUCUS RARE
[2017-12-29 11:25] LABS: INR 3.5 (0.83-1.09); PROTHROMBIN TIME (PATIENT) 39.6 SEC (9.7-13.0)
[2017-12-29 11:28] LABS: ACTIVATED PTT 42.8 SECONDS (25.2-36.5)
[2017-12-29 11:55] LABS: ALBUMIN 2.7 g/dl (3.4-5.0); ALK PHOS 68 U/L (45-117); ANION GAP 8 MMOL/L (8-16); BILIRUBIN,TOTAL 0.3 mg/dL (0.2-1); BLOOD UREA NITROGEN 15 mg/dL (7-18); CALCIUM 8.1 mg/dL (8.5-10.1); CHLORIDE 100 mmol/L (98-107); CO2 29 mmol/L (21-32); CREATININE 2.8 mg/dL (0.55-1.3); GLUCOSE,RANDOM 176 mg/dL (74-106); POTASSIUM 3.6 mmol/L (3.5-5.1); SGOT/AST 17 U/L (15-37); SGPT/ALT 16 U/L (13-61); SODIUM 137 mmol/L (136-145); TOT PROT 6.4 g/dl (6.4-8.2)
--- NOTE | 2017-12-29 13:14 | PDOC ---
History of Present Illness - General Chief Complaint: Blood Pressure Problem Stated Complaint: LOW BLOOD PRESSURE History Source: Patient Exam Limitations: No Limitations - History of Present Illness Initial Comments: 12/29/17 13:08 72 yo F with h/o morbid obesity, htn dm , esrd recently started on dialysis via right tunneled cathetar few weeks ago, here from [facility] for episode of hypothermia, hypotension and diaphoresis. per nursing report pt was hypothermic and bp in 80's. pt denies cp or sob. Past History - Past Medical History Allergies/Adverse Reactions: Allergies Allergy/AdvReac Type Severity Reaction Status Date / Time No Known Allergies Allergy Verified 12/29/17 10:11 Home Medications: Ambulatory Orders Ascorbic Acid [C-500] 250 mg PO DAILY 10/14/17 Atorvastatin Calcium 10 mg PO HS 10/14/17 Cholecalciferol (Vitamin D3) [Vitamin D3] 1,000 unit PO DAILY 10/14/17 Docusate Sodium [Colace] 100 mg PO HS 10/14/17 Folic Acid 1 mg PO DAILY 10/14/17 Gabapentin [Neurontin -] 100 mg PO Q8H 10/14/17 Insulin Detemir [Levemir Flextouch] 33 unit SQ HS 10/14/17 Isosorbide Mononitrate 60 mg PO DAILY 10/14/17 Lactulose 10 gm PO HS 10/14/17 Metoprolol Tartrate 50 mg PO TID 10/14/17 Multivitamin [Multiple Vitamins] 1 each PO DAILY 10/14/17 Nifedipine ER [Procardia XL -] 90 mg PO DAILY 10/14/17 Ranitidine HCl 150 mg PO DAILY 10/14/17 Bisacodyl [Bisacodyl -] 5 mg PO HS tablet. 11/14/17 Budesonide/Formeterol Fumarate [SYMBICORT 160/4.5mcg -] 1 inh PO DAILY 12/07/17 Epoetin [place] [Procrit] 10,000 unit IJ MOWEFR 12/07/17 Insulin Aspart [Novolog Flexpen] 5 unit SQ TIDCM 12/07/17 Iron Polysaccharide Complex [Ferrex 150] 150 mg PO DAILY 12/07/17 Magnesium Hydrox 2400MG/30Ml [Milk of Magnesia -] 30 ml PO Q12H PRN 12/07/17 Oxycodone HCl/Acetaminophen [Percocet 5-325 mg Tablet] 2 tab PO TID 12/07/17 Silver Sulfadiazine 1% Top Cr [Silvadene -] 1 applic TP BID 12/07/17 Warfarin Sodium [Coumadin] 3 mg PO HS 12/07/17 Furosemide [Lasix -] 80 mg PO Q48H #20 tablet 12/21/17 Simethicone [Mylicon -] 80 mg PO QID PRN #20 tab.chew 12/21/17 Anemia: Yes Asthma: Yes Cancer: No Cardiac Disorders: Yes (atrial fibrilation) CVA: No COPD: Yes CHF: Yes Dementia: No Diabetes: Yes GI Disorders: Yes (GERD) Disorders: Yes (UTI) HTN: Yes Hypercholesterolemia: Yes Liver Disease: No Seizures: No Thyroid Disease: No - Surgical History Abdominal Surgery: No Appendectomy: No Cardiac Surgery: No Cholecystectomy: No Lung Surgery: No Neurologic Surgery: No Orthopedic Surgery: Yes (L. Ankle sx, L.leg) - Immunization History Immunization Up to Date: Yes - Suicide/Smoking/Psychosocial Hx Smoking Status: No Smoking History: Never smoked Have you smoked in the past 12 months: No Number of Cigarettes Smoked Daily: 0 Information on smoking cessation initiated: No Hx Alcohol Use: No Drug/Substance Use Hx: No Substance Use Type: None Hx Substance Use Treatment: No Review of Systems - Review of Systems Constitutional: No: Chills, Diaphoresis, Fever Respiratory: No: Cough, Orthopnea Cardiac (ROS): No: Chest Pain All Other Systems: Reviewed and Negative *Physical Exam - Vital Signs Last Vital Signs Temp Pulse Resp BP Pulse Ox 98.9 F 96 H 19 129/100 12/29/17 10:38 12/29/17 10:38 12/29/17 10:38 12/29/17 10:38 - Physical Exam Comments: 12/29/17 13:15 awake alert lungs distant breath sounds no audible wheezes bilaterally heart rrr no mrg. abd soft obese nt nd. ext wwp bilat lower ext edema. nuero alert oriented x 3. ED Treatment Course - LABORATORY CBC & Chemistry Diagram: 12/29/17 10:58 12/29/17 10:58 - ADDITIONAL ORDERS Additional order review: Laboratory Results 12/29/17 12/29/17 12/29/17 10:58 10:58 10:58 PT with INR INR PTT (Actin FS) VBG pH POC VBG pCO2 POC VBG pO2 Mixed VBG HCO3 Sodium 137 Potassium 3.6 Chloride 100 Carbon Dioxide 29 Anion Gap 8 BUN 15 Creatinine 2.8 H Creat Clearance w eGFR 16.61 Random Glucose 176 H Lactic Acid Calcium 8.1 L Total Bilirubin 0.3 AST 17 ALT 16 Alkaline Phosphatase 68 Troponin I 0.02 Total Protein 6.4 Albumin 2.7 L Urine Color Patsy Urine Appearance Cloudy Urine pH 5.0 Ur Specific [place] 1.018 Urine Protein 1+ H Urine Glucose (UA) Negative Urine Ketones Negative Urine Blood Negative Urine Nitrite Negative Urine Bilirubin Negative Urine Urobilinogen Negative Ur Leukocyte Esterase Trace Urine WBC (Auto) 6 Urine RBC (Auto) 4 Ur Epithelial Cells Moderate Urine Bacteria Many Hyaline Casts 53 Urine Mucus Rare 12/29/17 12/29/17 12/29/17 10:58 10:58 10:47 PT with INR 39.60 H INR 3.50 H PTT (Actin FS) 42.8 H VBG pH 7.37 POC VBG pCO2 50.0 D POC VBG pO2 31.7 Mixed VBG HCO3 28.0 H Sodium Potassium Chloride Carbon Dioxide Anion Gap BUN Creatinine Creat Clearance w eGFR Random Glucose Lactic Acid 2.4 H* Calcium Total Bilirubin AST ALT Alkaline Phosphatase Troponin I Total Protein Albumin Urine Color Urine Appearance Urine pH Ur Specific [place] Urine Protein Urine Glucose (UA) Urine Ketones Urine Blood Urine Nitrite Urine Bilirubin Urine Urobilinogen Ur Leukocyte Esterase Urine WBC (Auto) Urine RBC (Auto) Ur Epithelial Cells Urine Bacteria Hyaline Casts Urine Mucus 12/29/17 10:58 RBC 3.54 L MCV 86.6 MCHC 32.9 RDW 15.3 MPV 8.7 Neutrophils % 73.5 Lymphocytes % 16.8 Monocytes % 6.8 Eosinophils % 2.3 Basophils % 0.6 - RADIOLOGY Radiology Studies Ordered: Category Date Time Status CHEST X-RAY PORTABLE* [RAD] Stat Radiology 12/29/17 10:47 Completed - Medications Given in the ED: ED Medications Discontinued Medications Generic Name Dose Route Start Last Admin Trade Name Freq PRN Reason Stop Dose Admin Sodium Chloride 1,000 ml 12/29/17 10:45 12/29/17 11:02 Normal Saline - IV 12/29/17 10:46 1,000 ml ONCE ONE Administration Medical Decision Making - Medical Decision Making 12/29/17 13:16 72 yo F h/o recently started dialysis indwelling cathetar, htn dm obesity, here for transient hypotension. differential: sepsis, line infection, mi, pulm edema , over diuresis, reaction to lasix which she was supposed to get on non dialysis days. plan septic work up, ekg labs . cxr. will cover with abx for sepsis . repeat bp and temp normal here. pt had received 500 ns bolus via EMS prior to arrival. . d /w dr. Remedios thompson, willadmit pt. *DC/Admit/Observation/Transfer Diagnosis at time of Disposition: Sepsis - Discharge Dispostion Decision to Admit order: Yes - Referrals Referrals: Diana Whitmore MD [Primary Care Provider] - - Patient Instructions - Post Discharge Activity
[2017-12-29] MEDS ORDERED: PIPERACILLIN/TAZOB 3.375 GM 3.375 GM in DEXTROSE 5%-WATER - 50 ML IVPB ONE (13:19)
[2017-12-29] MEDS ORDERED: VANCOMYCIN 1,000 MG in DEXTROSE 5%-WATER - 250 ML IVPB ONE (13:19)
[2017-12-29] MEDS ORDERED: PIPERACILLIN/TAZOB 3.375 GM 3.375 GM/50 ML BAG IVPB ONE (13:25)
[2017-12-29] MEDS ORDERED: VANCOMYCIN 1 GRAM (PRE-DOCKED) 1,000 MG/250 ML BAG IVPB ONE (13:25)
--- NOTE | 2017-12-29 13:56 | HP ---
Admitting History and Physical - Primary Care Physician PCP: Remedios Reddy - Admission Chief Complaint: hypotensive and hypothermic History of Present Illness: ER History 12/29/17 13:08 72 yo F with h/o morbid obesity, htn dm , esrd recently started on dialysis via right tunneled cathetar few weeks ago, here from [facility] for episode of hypothermia, hypotension and diaphoresis. per nursing report pt was hypothermic and bp in 80's. pt denies cp or sob. Pt examined by me in ER I had seen her yesterday in [facility] care at dialysis unit-- she was asymptomatic ,felt well. After dialysis yesterday, she felt cold and was sweating. Today found to be hypotensive and hypothermic. She has no chest pain ,SOB No dizziness received a 500 cc bolus NS by EMS and IV Zosyn and Vanco in ER History Source: Patient Limitations to Obtaining History: No Limitations - Past Medical History Cardiovascular: Yes: AFIB (anticoagulants for 5 yrs , on coumadin), CHF, HTN, Hyperlipdemia Pulmonary: Yes: Asthma, COPD Gastrointestinal: Yes: Constipation, GERD, Other (does not remember about colonscopy ) Renal/: Yes: Renal Inusuff (ESRD on HD), UTI (h/o recurrent uti) Heme/Onc: Yes: Anemia (history of chronic anemia, on intermittent transfusions and also on Procrit at [place]), Other. No: B12 Deficiency, Bleeding Disorder, Cancer, Current Chemotherapy, Current Radiation Therapy, Hemochromatosis, Hypercoaguable State, Myeloproliferative Synd, Sickle Cell Disease, Sickle Cell Trait, Thrombocytopenia Psych: Yes: Depression (because son at age 38 yrs by sucide ) Musculoskeletal: Yes: Osteoarthritis Endocrine: Yes: Diabetes Mellitus (IDDM since age 40 yrs ), Other (morbid obesity ) - Past Surgical History Past Surgical History: Yes: (40 years ago per patient), Tubal Ligation - Smoking History Smoking history: Never smoked Have you smoked in the past 12 months: No Aproximately how many cigarettes per day: 0 - Alcohol/Substance Use Hx Alcohol Use: No History of Substance Use: reports: None - Social History ADL: Support Services History of Recent Travel: No Home Medications - Allergies Allergies/Adverse Reactions: Allergies Allergy/AdvReac Type Severity Reaction Status Date / Time No Known Allergies Allergy Verified 12/29/17 10:11 - Home Medications Home Medications: Ambulatory Orders Ascorbic Acid [C-500] 250 mg PO DAILY 10/14/17 Atorvastatin Calcium 10 mg PO HS 10/14/17 Cholecalciferol (Vitamin D3) [Vitamin D3] 1,000 unit PO DAILY 10/14/17 Docusate Sodium [Colace] 100 mg PO HS 10/14/17 Folic Acid 1 mg PO DAILY 10/14/17 Gabapentin [Neurontin -] 100 mg PO Q8H 10/14/17 Insulin Detemir [Levemir Flextouch] 33 unit SQ HS 10/14/17 Isosorbide Mononitrate 60 mg PO DAILY 10/14/17 Lactulose 10 gm PO HS 10/14/17 Metoprolol Tartrate 50 mg PO TID 10/14/17 Multivitamin [Multiple Vitamins] 1 each PO DAILY 10/14/17 Nifedipine ER [Procardia XL -] 90 mg PO DAILY 10/14/17 Ranitidine HCl 150 mg PO DAILY 10/14/17 Bisacodyl [Bisacodyl -] 5 mg PO HS tablet. 11/14/17 Budesonide/Formeterol Fumarate [SYMBICORT 160/4.5mcg -] 1 inh PO DAILY 12/07/17 Epoetin [place] [Procrit] 10,000 unit IJ MOWEFR 12/07/17 Insulin Aspart [Novolog Flexpen] 5 unit SQ TIDCM 12/07/17 Iron Polysaccharide Complex [Ferrex 150] 150 mg PO DAILY 12/07/17 Magnesium Hydrox 2400MG/30Ml [Milk of Magnesia -] 30 ml PO Q12H PRN 12/07/17 Oxycodone HCl/Acetaminophen [Percocet 5-325 mg Tablet] 2 tab PO TID 12/07/17 Silver Sulfadiazine 1% Top Cr [Silvadene -] 1 applic TP BID 12/07/17 Warfarin Sodium [Coumadin] 3 mg PO HS 12/07/17 Furosemide [Lasix -] 80 mg PO Q48H #20 tablet 12/21/17 Simethicone [Mylicon -] 80 mg PO QID PRN #20 tab.chew 12/21/17 Bacitracin - [Bacitracin Topical Ointment -] 500 unit TP BID MDD R NECK Vitamin B Comp W-C [Nephro-Essie -] 0.8 mg PO DAILY 12/29/17 Zinc Sulfate 220 mg PO DAILY MDD for 10 days 12/29/17 Family Disease History - Family Disease History Family Disease History: Diabetes: Father ( age 44, complications DM), Mother ( age 83), Daughter (Alive, ESRD), Heart Disease: Mother, Other: Son (, age 38 suicide), Daughter Review of Systems - Review of Systems Constitutional: reports: Weakness. denies: Chills, Fever Cardiovascular: denies: Chest Pain, Edema, Palpitations, Shortness of Breath Respiratory: denies: Cough Gastrointestinal: denies: Abdominal Pain, Constipation, Diarrhea, Indigestion, Melena, Nausea, Vomiting Physical Examination Vital Signs: Vital Signs Temperature 98.1 F 12/29/17 13:14 Pulse Rate 72 12/29/17 13:14 Respiratory Rate 16 12/29/17 13:14 Blood Pressure 105/47 12/29/17 13:14 O2 Sat by Pulse Oximetry (%) 100 12/29/17 13:14 Constitutional: Yes: No Distress, Calm Cardiovascular: Yes: Pulse Irregular Respiratory: Yes: Diminished Gastrointestinal: Yes: Normal Bowel Sounds, Soft, Abdomen, Obese. No: Tenderness Edema: Yes (decreased ) Edema: LLE: 2+, RLE: 2+ Neurological: Yes: Alert, Oriented Labs: CBC, BMP 12/29/17 10:58 12/29/17 10:58 Imaging - Results Chest X-ray: Image Reviewed (clear) EKG: Image Reviewed (Afib) Problem List - Problems (1) End stage renal disease on dialysis Code(s): N18.6 - END STAGE RENAL DISEASE; Z99.2 - DEPENDENCE ON RENAL DIALYSIS (2) Sepsis Code(s): A41.9 - SEPSIS, UNSPECIFIED ORGANISM (3) Afib Code(s): I48.91 - UNSPECIFIED ATRIAL FIBRILLATION Qualifiers: (4) CHF (congestive heart failure) Code(s): I50.9 - HEART FAILURE, UNSPECIFIED (5) Diabetes mellitus Code(s): E11.9 - TYPE 2 DIABETES MELLITUS WITHOUT COMPLICATIONS Assessment/Plan PLAN Cultures obtained in ER She has a recent dialysis catheter Received Vanco and Zosyn in ER Hold off Lasix PO Has elevated Lactate-? ESRD or sepsis On Coumadin for Afib- rate is controlled, hold today's dose due to elevated INR ID and renal consult continue with meds
[2017-12-29] MEDS ORDERED: GABAPENTIN 100 MG CAPSULE (FP) PO SCH (14:00)
--- NOTE | 2017-12-29 14:38 | EKG ---
Test Reason : Blood Pressure : / mmHG Vent. Rate : 104 BPM Atrial Rate : 111 BPM P-R Int : 000 ms QRS Dur : 098 ms QT Int : 398 ms P-R-T Axes : 000 030 178 degrees QTc Int : 523 ms ATRIAL FIBRILLATION WITH RAPID VENTRICULAR RESPONSE NONSPECIFIC ST AND T WAVE ABNORMALITY PROLONGED QT ABNORMAL ECG WHEN COMPARED WITH ECG OF 07-DEC-2017 15:18, ATRIAL FIBRILLATION HAS REPLACED JUNCTIONAL RHYTHM VENT. RATE HAS INCREASED BY 39 BPM T WAVE INVERSION NOW EVIDENT IN LATERAL LEADS QT HAS LENGTHENED Confirmed by ELOISA KOCH MD ([id number]) on 12/29/2017 2:38:28 PM Referred By: Confirmed By:ELOISA KOCH MD
[2017-12-29] MEDS ORDERED: GABAPENTIN 100 MG CAPSULE (FP) ONE (14:47)
--- NOTE | 2017-12-29 16:18 | CONSULT ---
Consult Consult Specialty:: Nephrology Reason for Consultation:: ESRD - History of Present Illness Chief Complaint: hypotension History of Present Illness: Pt is a 72 year old female with pmhx of HTN, DM, esrd and morbid obesity who was sent in for hypothermi and hypotension. She is on HD via a chest wall permacath. Her last HD was yesterday. She is now awake and alert. She denies fevers or chills. She did have an episode of hypotension in the ER. She denies chest pain or shortness of breath. - History Source History Provided By: Patient, Medical Record - Past Medical History Cardio/Vascular: Yes: AFIB (anticoagulants for 5 yrs , on coumadin), CHF, HTN, Hyperlipdemia Pulmonary: Yes: Asthma, COPD Gastrointestinal: Yes: Constipation, GERD, Other (does not remember about colonscopy ) Renal/: Yes: Renal Inusuff (ESRD on HD), UTI (h/o recurrent uti) Psych: Yes: Depression (because son at age 38 yrs by sucide ) Musculoskeletal: Yes: Osteoarthritis Endocrine: Yes: Diabetes Mellitus (IDDM since age 40 yrs ), Other (morbid obesity ) Additional Medical History: morbid obesity - Past Surgical History Past Surgical History: Yes: (40 years ago per patient), Tubal Ligation - Alcohol/Substance Use Hx Alcohol Use: No History of Substance Use: reports: None - Smoking History Smoking history: Never smoked Have you smoked in the past 12 months: No Aproximately how many cigarettes per day: 0 - Social History Usual Living Arrangement: [facility] (for 2 yrs at [facility]) ADL: Support Services History of Recent Travel: No Home Medications - Allergies Allergies/Adverse Reactions: Allergies Allergy/AdvReac Type Severity Reaction Status Date / Time No Known Allergies Allergy Verified 12/29/17 10:11 - Home Medications Home Medications: Ambulatory Orders Ascorbic Acid [C-500] 250 mg PO DAILY 10/14/17 Atorvastatin Calcium 10 mg PO HS 10/14/17 Cholecalciferol (Vitamin D3) [Vitamin D3] 1,000 unit PO DAILY 10/14/17 Docusate Sodium [Colace] 100 mg PO HS 10/14/17 Folic Acid 1 mg PO DAILY 10/14/17 Gabapentin [Neurontin -] 100 mg PO Q8H 10/14/17 Insulin Detemir [Levemir Flextouch] 33 unit SQ HS 10/14/17 Isosorbide Mononitrate 60 mg PO DAILY 10/14/17 Lactulose 10 gm PO HS 10/14/17 Metoprolol Tartrate 50 mg PO TID 10/14/17 Multivitamin [Multiple Vitamins] 1 each PO DAILY 10/14/17 Nifedipine ER [Procardia XL -] 90 mg PO DAILY 10/14/17 Ranitidine HCl 150 mg PO DAILY 10/14/17 Bisacodyl [Bisacodyl -] 5 mg PO HS tablet. 11/14/17 Budesonide/Formeterol Fumarate [SYMBICORT 160/4.5mcg -] 1 inh PO DAILY 12/07/17 Epoetin [place] [Procrit] 10,000 unit IJ MOWEFR 12/07/17 Insulin Aspart [Novolog Flexpen] 5 unit SQ TIDCM 12/07/17 Iron Polysaccharide Complex [Ferrex 150] 150 mg PO DAILY 12/07/17 Magnesium Hydrox 2400MG/30Ml [Milk of Magnesia -] 30 ml PO Q12H PRN 12/07/17 Oxycodone HCl/Acetaminophen [Percocet 5-325 mg Tablet] 2 tab PO TID 12/07/17 Silver Sulfadiazine 1% Top Cr [Silvadene -] 1 applic TP BID 12/07/17 Warfarin Sodium [Coumadin] 3 mg PO HS 12/07/17 Furosemide [Lasix -] 80 mg PO Q48H #20 tablet 12/21/17 Simethicone [Mylicon -] 80 mg PO QID PRN #20 tab.chew 12/21/17 Bacitracin - [Bacitracin Topical Ointment -] 500 unit TP BID MDD R NECK Vitamin B Comp W-C [Nephro-Essie -] 0.8 mg PO DAILY 12/29/17 Zinc Sulfate 220 mg PO DAILY MDD for 10 days 12/29/17 Family Disease History - Family Disease History Family Disease History: Diabetes: Father ( age 44, complications DM), Mother ( age 83), Daughter (Alive, ESRD), Heart Disease: Mother, Other: Son (, age 38 suicide), Daughter Review of Systems - Review of Systems Constitutional: reports: Malaise. denies: Fever Eyes: reports: No Symptoms HENT: reports: No Symptoms Neck: reports: No Symptoms Cardiovascular: reports: No Symptoms Respiratory: reports: No Symptoms Gastrointestinal: reports: No Symptoms Musculoskeletal: reports: Muscle Weakness Neurological: reports: No Symptoms Physical Exam Vital Signs: Vital Signs Temperature 98.1 F 12/29/17 13:14 Pulse Rate 70 12/29/17 15:49 Respiratory Rate 15 12/29/17 15:49 Blood Pressure 110/65 12/29/17 15:49 O2 Sat by Pulse Oximetry (%) 100 12/29/17 15:49 Constitutional: Yes: Calm Eyes: Yes: Conjunctiva Clear HENT: Yes: Atraumatic Cardiovascular: Yes: S1 Respiratory: Yes: CTA Bilaterally, On Nasal O2 Gastrointestinal: Yes: Soft, Abdomen, Obese Renal/: Yes: Incontinence Musculoskeletal: Yes: Muscle Weakness Edema: Yes Edema: LLE: 1+, RLE: 1+ Neurological: Yes: Oriented Psychiatric: Yes: Oriented Labs: CBC, BMP 12/29/17 10:58 12/29/17 10:58 Imaging - Results Chest X-ray: Report Reviewed Problem List - Problems (1) End stage renal disease on dialysis Code(s): N18.6 - END STAGE RENAL DISEASE; Z99.2 - DEPENDENCE ON RENAL DIALYSIS Assessment/Plan Current Medications Generic Name Dose Route Start Last Admin Trade Name Freq PRN Reason Stop Dose Admin Acetaminophen 325 mg 12/29/17 14:56 Tylenol - PO Q6H PRN PAIN 6-10 Atorvastatin Calcium 10 mg 12/29/17 22:00 Lipitor - PO HS BRYANT Bacitracin 1 applic 12/29/17 22:00 Bacitracin - TP BID BRYANT Bisacodyl 5 mg 12/29/17 22:00 Dulcolax - PO HS BRYANT Budesonide/Formoterol Fumarate 2 puff 12/29/17 22:00 Symbicort 160/4.5mcg - IH BID BR[facility] Docusate Sodium 100 mg 12/29/17 22:00 Colace - PO HS RBYANT Folic Acid 1 mg 12/30/17 10:00 Folic Acid - PO DAILY BR[facility] Gabapentin 100 mg 12/29/17 14:51 Neurontin - PO TID BRY[facility] Insulin Aspart 5 units 12/29/17 16:30 12/29/17 18:52 Novolog Vial SQ 5 units TIDAC [facility] Administration Insulin Aspart 1 vial 12/29/17 16:30 12/29/17 17:51 Novolog Vial Sliding Scale - SQ 2 units TIDAC [facility] Administration Protocol Insulin Detemir 33 units 12/29/17 22:00 Levemir Vial SQ HS BR[facility] Isosorbide Mononitrate 60 mg 12/30/17 10:00 Imdur - PO DAILY BR[facility] Lactulose 10 gm 12/29/17 22:00 Cephulac (Oral Use) PO HS PRN CONSTIPATION Multivit/Ca Carb/B Cmplx/FA/Prenat 1 tablet 12/30/17 10:00 Nephro-Essie - PO DAILY BR[facility] Oxycodone HCl 5 mg 12/29/17 14:56 Roxicodone - PO Q6H PRN PAIN 6-10 Polysaccharide Iron Complex 150 mg 12/30/17 10:00 Niferex-150 - PO DAILY BR[facility]ANT Ranitidine HCl 150 mg 12/30/17 10:00 Zantac - PO DAILY BRYANT Silver Sulfadiazine 1 applic 12/29/17 22:00 Silvadene - TP BID BRYANT Simethicone 80 mg 12/29/17 14:00 Mylicon - PO Q6H PRN DYSPEPSIA Impression 1. ESRD 2. obesity 3. hyperlipidemia 4. HTN 5. DM 6. CHF 7. CAD 8. anemia 9. a-fib 10. iron deficiency 11. r/o TIA 12. sepsis Plan - follow cultures - will evaluate for HD in am - repeat labs in am - monitor vitals - admit to a monitored setting as she became hypotensive - discussed with ER - reviewed chart Dr Capps
[2017-12-29] MEDS: INSULIN SLIDING SCALE (NOVOLOG) 1 VIAL SQ SCH (17:51)
[2017-12-29] MEDS ORDERED: INSULIN (NOVOLOG) ASPART 100 UNITS/ML 10ML VIAL ONE (18:50)
[2017-12-29] MEDS: INSULIN (NOVOLOG) ASPART 100 UNITS/ML 10ML VIAL SQ SCH (18:52)
[2017-12-29 20:55] VITALS: BMI 55.2
[2017-12-29] MEDS ORDERED: LACTULOSE 20 GM/30 ML UDC (FOR ORAL USE ONLY) PO PRN (22:00)
[2017-12-29] MEDS: BACITRACIN 15 GM TUBE TOPICAL OINTMENT TP SCH (22:01)
[2017-12-29] MEDS: ATORVASTATIN CA 10 MG TABLET (FP) PO SCH (22:02)
[2017-12-29] MEDS: BISACODYL 5 MG TABLET.DR (FP) PO SCH (22:02)
[2017-12-29] MEDS: DOCUSATE SODIUM 100 MG CAPSULE (FP) PO SCH (22:02)
[2017-12-29] MEDS: INSULIN (LEVEMIR) 100 UNITS/ML UNITS SQ SCH (22:02)
[2017-12-29] MEDS: GABAPENTIN 100 MG CAPSULE (FP) PO SCH (22:03)
[2017-12-29] MEDS: SILVER SULFADIAZINE 1% TOP CREAM 400 GM JAR TP SCH (22:03)
[2017-12-29] MEDS: oxyCODONE HCL 5 MG TABLET PO PRN (22:03)
[2017-12-29] MEDS: BUDESONIDE/FORMETEROL FUMARATE 160/4.5 mcg INHALER IH SCH (22:03)
[2017-12-29] MEDS: ACETAMINOPHEN 325 MG TABLET (FP) PO PRN (22:05)
[2017-12-30] MEDS: GABAPENTIN 100 MG CAPSULE (FP) PO SCH ×3 (06:10→21:34)
[2017-12-30] MEDS: INSULIN SLIDING SCALE (NOVOLOG) 1 VIAL SQ SCH ×3 (06:14→17:04)
[2017-12-30 06:48] LABS: BASO % 0.7 % (0-2.0); EOS % 3.7 % (0-4.5); HEMATOCRIT 27.1 % (32.4-45.2); HEMOGLOBIN 8.9 GM/dL (10.7-15.3); LYMPH % 20.9 % (8-40); MCH 28.1 pg (25.7-33.7); MCHC 32.8 g/dl (32.0-36.0); MEAN CELL VOLUME 85.6 fl (80-96); MEAN PLT VOLUME 8.3 fl (7.5-11.1); MONO % 7.4 % (3.8-10.2); NEUT % 67.3 % (42.8-82.8); PLATELET COUNT 194 K/MM3 (134-434); RBC 3.17 M/mm3 (3.60-5.2); RDW 15.6 % (11.6-15.6); WHITE BLOOD COUNT 9.6 K/mm3 (4.0-10.0)
[2017-12-30] MEDS: INSULIN (NOVOLOG) ASPART 100 UNITS/ML 10ML VIAL SQ SCH ×3 (06:52→17:03)
[2017-12-30 07:05] LABS: INR 3.89 (0.83-1.09)
[2017-12-30 07:48] LABS: ALBUMIN 2.6 g/dl (3.4-5.0); ALK PHOS 58 U/L (45-117); ANION GAP 10 MMOL/L (8-16); BILIRUBIN,TOTAL 0.2 mg/dL (0.2-1); BLOOD UREA NITROGEN 23 mg/dL (7-18); CALCIUM 8.3 mg/dL (8.5-10.1); CHLORIDE 100 mmol/L (98-107); CO2 28 mmol/L (21-32); CREATININE 3.6 mg/dL (0.55-1.3); GLUCOSE,RANDOM 125 mg/dL (74-106); POTASSIUM 3.5 mmol/L (3.5-5.1); SGOT/AST 15 U/L (15-37); SGPT/ALT 14 U/L (13-61); SODIUM 139 mmol/L (136-145); TOT PROT 5.6 g/dl (6.4-8.2)
[2017-12-30] MEDS ORDERED: PT OWN MED DRAWER 7, Y5N ONE ×4 (10:22→23:46)
[2017-12-30] MEDS: BACITRACIN 15 GM TUBE TOPICAL OINTMENT TP SCH ×2 (10:47→21:23)
[2017-12-30] MEDS: ISOSORBIDE MONONITRATE 60 MG TAB.SR.24H (FP) PO SCH (10:48)
[2017-12-30] MEDS: RANITIDINE HCL 150 MG TABLET (FP) PO SCH (10:48)
[2017-12-30] MEDS: FOLIC ACID 1 MG TABLET (FP) PO SCH (10:50)
--- NOTE | 2017-12-30 12:02 | PN ---
Progress Note (short form) - Note Progress Note: Pt seen/ examined. chart reviewed awake/ comfortable feels better denies pain afebrile alert/ awake Vital Signs Temp 98.2 F 12/30/17 06:00 Pulse 72 12/30/17 06:00 Resp 18 12/30/17 06:00 BP 109/72 12/30/17 06:00 Pulse Ox 98 12/29/17 21:02 Intake & Output 12/29/17 12/30/17 12/30/17 23:59 11:59 23:59 Intake Total 100 450 Balance 100 450 Weight 302 lb Intake: Oral 100 450 Other: Voiding Method Diaper Incontinent Height 5 ft 2 in Body Mass Index (BMI) 55.2 Active Medications Acetaminophen (Tylenol -) 325 mg PO Q6H PRN PRN Reason: PAIN 6-10 Last Admin: 12/29/17 22:05 Dose: 325 mg Atorvastatin Calcium (Lipitor -) 10 mg PO [facility] Last Admin: 12/29/17 22:02 Dose: 10 mg Bacitracin (Bacitracin -) 1 applic TP BID [facility] Last Admin: 12/30/17 10:47 Dose: 1 applic Bisacodyl (Dulcolax -) 5 mg PO [facility] Last Admin: 12/29/17 22:02 Dose: 5 mg Budesonide/Formoterol Fumarate (Symbicort 160/4.5mcg -) 2 puff IH BID [facility] Last Admin: 12/29/17 22:03 Dose: Not Given Docusate Sodium (Colace -) 100 mg PO [facility] Last Admin: 12/29/17 22:02 Dose: 100 mg Folic Acid (Folic Acid -) 1 mg PO DAILY [facility] Last Admin: 12/30/17 10:50 Dose: 1 mg Gabapentin (Neurontin -) 100 mg PO TID [facility] Last Admin: 12/30/17 06:10 Dose: 100 mg Insulin Aspart (Novolog Vial) 5 units SQ TIDAC [facility] Last Admin: 12/30/17 06:52 Dose: Not Given Insulin Aspart (Novolog Vial Sliding Scale -) 1 vial SQ TIDAC [facility]; Protocol Last Admin: 12/30/17 06:14 Dose: Not Given Insulin Detemir (Levemir Vial) 33 units SQ [facility] Last Admin: 12/29/17 22:02 Dose: 33 unit Isosorbide Mononitrate (Imdur -) 60 mg PO DAILY [facility] Last Admin: 12/30/17 10:48 Dose: 60 mg Lactulose (Cephulac (Oral Use)) 10 gm PO HS PRN PRN Reason: CONSTIPATION Multivit/Ca Carb/B Cmplx/FA/Prenat (Nephro-Essie -) 1 tablet PO DAILY [facility] Oxycodone HCl (Roxicodone -) 5 mg PO Q6H PRN PRN Reason: PAIN 6-10 Last Admin: 12/29/17 22:03 Dose: 5 mg Polysaccharide Iron Complex (Niferex-150 -) 150 mg PO DAILY [facility] Ranitidine HCl (Zantac -) 150 mg PO DAILY [facility] Last Admin: 12/30/17 10:48 Dose: 150 mg Silver Sulfadiazine (Silvadene -) 1 applic TP BID [facility] Last Admin: 12/29/17 22:03 Dose: Not Given Simethicone (Mylicon -) 80 mg PO Q6H PRN PRN Reason: DYSPEPSIA CBC, BMP 12/30/17 06:00 12/30/17 06:00 INR, PTT INR 3.89 (0.83-1.09) H 12/30/17 06:00 Microbiology 12/29/17 10:40 Blood Culture - Preliminary Blood - Peripheral Venous NO GROWTH OBTAINED AFTER 24 HOURS, INCUBATION TO CONTINUE FOR 4 DAYS. 12/29/17 10:40 Blood Culture - Preliminary Blood - Peripheral Venous NO GROWTH OBTAINED AFTER 24 HOURS, INCUBATION TO CONTINUE FOR 4 DAYS. 12/29/17 10:40 Urine Culture - Final Urine - Urine - Catheterized NO GROWTH OBTAINED Physical Examination Constitutional: Yes: No Distress, Calm and comfortable.Morbidly obese Cardiovascular: Yes: Pulse Irregular Respiratory: Yes: Diminished Gastrointestinal: Yes: Normal Bowel Sounds, Soft, Abdomen, Obese. No: Tenderness Edema: Yes (decreased ) Edema: LLE: 2+, RLE: 2+ Neurological: Yes: Alert, Oriented Imaging - Results Chest X-ray: Image Reviewed (clear) EKG: Image Reviewed (Afib) Problem List - Problems (1) End stage renal disease on dialysis Code(s): N18.6 - END STAGE RENAL DISEASE; Z99.2 - DEPENDENCE ON RENAL DIALYSIS (2) Sepsis Code(s): A41.9 - SEPSIS, UNSPECIFIED ORGANISM (3) Afib Code(s): I48.91 - UNSPECIFIED ATRIAL FIBRILLATION Qualifiers: (4) CHF (congestive heart failure) Code(s): I50.9 - HEART FAILURE, UNSPECIFIED (5) Diabetes mellitus Code(s): E11.9 - TYPE 2 DIABETES MELLITUS WITHOUT COMPLICATIONS Assessment/Plan stable Cultures obtained in ER She has a recent dialysis catheter Received Vanco and Zosyn in ER I/d consult abx per i/d On Coumadin for Afib- rate is controlled, hold today's dose due to elevated INR monitor continue with meds will follow
[2017-12-30] MEDS: BUDESONIDE/FORMETEROL FUMARATE 160/4.5 mcg INHALER IH SCH ×4 (12:07→21:29)
[2017-12-30] MEDS: VITAMIN B COMP W-C 1 EA TABLET PO SCH ×2 (12:07→13:12)
[2017-12-30] MEDS: SILVER SULFADIAZINE 1% TOP CREAM 400 GM JAR TP SCH ×3 (12:07→21:34)
[2017-12-30] MEDS: IRON POLYSACCHARIDES 150 MG CAPSULE PO SCH ×2 (12:07→13:12)
[2017-12-30] MEDS: oxyCODONE HCL 5 MG TABLET PO PRN (13:26)
[2017-12-30] MEDS: ACETAMINOPHEN 325 MG TABLET (FP) PO PRN (13:27)
--- NOTE | 2017-12-30 14:52 | PN ---
Progress Note, Physician History of Present Illness: Pt seen and examined at bedside. She is awake and alert. She denies shortness of breath. She denies fevers or chills. - Current Medication List Current Medications: Active Medications Acetaminophen (Tylenol -) 325 mg PO Q6H PRN PRN Reason: PAIN 6-10 Last Admin: 12/30/17 13:27 Dose: 325 mg Atorvastatin Calcium (Lipitor -) 10 mg PO [facility] Last Admin: 12/29/17 22:02 Dose: 10 mg Bacitracin (Bacitracin -) 1 applic TP BID [facility] Last Admin: 12/30/17 10:47 Dose: 1 applic Bisacodyl (Dulcolax -) 5 mg PO [facility] Last Admin: 12/29/17 22:02 Dose: 5 mg Budesonide/Formoterol Fumarate (Symbicort 160/4.5mcg -) 2 puff IH BID [facility] Last Admin: 12/30/17 13:12 Dose: 2 puff Docusate Sodium (Colace -) 100 mg PO [facility] Last Admin: 12/29/17 22:02 Dose: 100 mg Folic Acid (Folic Acid -) 1 mg PO DAILY [facility] Last Admin: 12/30/17 10:50 Dose: 1 mg Gabapentin (Neurontin -) 100 mg PO TID [facility] Last Admin: 12/30/17 13:12 Dose: 100 mg Insulin Aspart (Novolog Vial) 5 units SQ TIDAC [facility] Last Admin: 12/30/17 11:30 Dose: 5 units Insulin Aspart (Novolog Vial Sliding Scale -) 1 vial SQ TIDAC [facility]; Protocol Last Admin: 12/30/17 11:30 Dose: 2 units Insulin Detemir (Levemir Vial) 33 units SQ [facility] Last Admin: 12/29/17 22:02 Dose: 33 unit Isosorbide Mononitrate (Imdur -) 60 mg PO DAILY [facility] Last Admin: 12/30/17 10:48 Dose: 60 mg Lactulose (Cephulac (Oral Use)) 10 gm PO HS PRN PRN Reason: CONSTIPATION Multivit/Ca Carb/B Cmplx/FA/Prenat (Nephro-Essie -) 1 tablet PO DAILY [facility] Last Admin: 12/30/17 13:12 Dose: 1 tablet Oxycodone HCl (Roxicodone -) 5 mg PO Q6H PRN PRN Reason: PAIN 6-10 Last Admin: 12/30/17 13:26 Dose: 5 mg Polysaccharide Iron Complex (Niferex-150 -) 150 mg PO DAILY [facility] Last Admin: 12/30/17 13:12 Dose: 150 mg Ranitidine HCl (Zantac -) 150 mg PO DAILY [facility] Last Admin: 12/30/17 10:48 Dose: 150 mg Silver Sulfadiazine (Silvadene -) 1 applic TP BID [facility] Last Admin: 12/30/17 12:07 Dose: Not Given Simethicone (Mylicon -) 80 mg PO Q6H PRN PRN Reason: DYSPEPSIA - Objective Vital Signs: Vital Signs Temperature 98.3 F 12/30/17 10:00 Pulse Rate 65 12/30/17 10:00 Respiratory Rate 18 12/30/17 10:00 Blood Pressure 117/43 L 12/30/17 10:00 O2 Sat by Pulse Oximetry (%) 99 12/30/17 09:00 Constitutional: Yes: Calm Eyes: Yes: Conjunctiva Clear HENT: Yes: Atraumatic Cardiovascular: Yes: S1, S2 Respiratory: Yes: On Nasal O2 Gastrointestinal: Yes: Soft, Abdomen, Obese Genitourinary: Yes: Incontinence Musculoskeletal: Yes: Muscle Weakness Integumentary: Yes: Venous Stasis Changes Neurological: Yes: Oriented Psychiatric: Yes: Oriented Labs: CBC, BMP 12/30/17 06:00 12/30/17 06:00 INR, PTT INR 3.89 (0.83-1.09) H 12/30/17 06:00 Problem List - Problems (1) End stage renal disease on dialysis Code(s): N18.6 - END STAGE RENAL DISEASE; Z99.2 - DEPENDENCE ON RENAL DIALYSIS Assessment/Plan Current Medications Generic Name Dose Route Start Last Admin Trade Name Freq PRN Reason Stop Dose Admin Acetaminophen 325 mg 12/29/17 14:56 12/30/17 13:27 Tylenol - PO 325 mg Q6H PRN Administration PAIN 6-10 Atorvastatin Calcium 10 mg 12/29/17 22:00 12/29/17 22:02 Lipitor - PO 10 mg HS [facility]ANT Administration Bacitracin 1 applic 12/29/17 22:00 12/30/17 10:47 Bacitracin - TP 1 applic BID [facility] Administration Bisacodyl 5 mg 12/29/17 22:00 12/29/17 22:02 Dulcolax - PO 5 mg HS [facility] Administration Budesonide/Formoterol Fumarate 2 puff 12/29/17 22:00 12/30/17 13:12 Symbicort 160/4.5mcg - IH 2 puff BID [facility] Administration Docusate Sodium 100 mg 12/29/17 22:00 12/29/17 22:02 Colace - PO 100 mg HS [facility] Administration Folic Acid 1 mg 12/30/17 10:00 12/30/17 10:50 Folic Acid - PO 1 mg DAILY [facility] Administration Gabapentin 100 mg 12/29/17 14:51 12/30/17 13:12 Neurontin - PO 100 mg TID [facility] Administration Insulin Aspart 5 units 12/29/17 16:30 12/30/17 11:30 Novolog Vial SQ 5 units TIDAC [facility] Administration Insulin Aspart 1 vial 12/29/17 16:30 12/30/17 11:30 Novolog Vial Sliding Scale - SQ 2 units TIDAC [facility] Administration Protocol Insulin Detemir 33 units 12/29/17 22:00 12/29/17 22:02 Levemir Vial SQ 33 unit HS [facility] Administration Isosorbide Mononitrate 60 mg 12/30/17 10:00 12/30/17 10:48 Imdur - PO 60 mg DAILY [facility] Administration Lactulose 10 gm 12/29/17 22:00 Cephulac (Oral Use) PO HS PRN CONSTIPATION Multivit/Ca Carb/B Cmplx/FA/Prenat 1 tablet 12/30/17 10:00 12/30/17 13:12 Nephro-Essie - PO 1 tablet DAILY [facility] Administration Oxycodone HCl 5 mg 12/29/17 14:56 12/30/17 13:26 Roxicodone - PO 5 mg Q6H PRN Administration PAIN 6-10 Polysaccharide Iron Complex 150 mg 12/30/17 10:00 12/30/17 13:12 Niferex-150 - PO 150 mg DAILY [facility] Administration Ranitidine HCl 150 mg 12/30/17 10:00 12/30/17 10:48 Zantac - PO 150 mg DAILY [facility] Administration Silver Sulfadiazine 1 applic 12/29/17 22:00 12/30/17 12:07 Silvadene - TP Not Given BID BRYANT Simethicone 80 mg 12/29/17 14:00 Mylicon - PO Q6H PRN DYSPEPSIA Impression 1. ESRD 2. obesity 3. hyperlipidemia 4. HTN 5. DM 6. CHF 7. CAD 8. anemia 9. a-fib 10. iron deficiency 11. r/o TIA 12. sepsis Plan - cultures negative so far - repeat labs in am - will arrange for HD in am - unable to dialyze today secondary to staffing and schedule - volume status is stable - bp remains low, will not UF volume tomorrow Dr Capps
[2017-12-30] MEDS ORDERED: VANCOMYCIN 1,000 MG in DEXTROSE 5%-WATER - 250 ML IVPB ONE (18:53)
--- NOTE | 2017-12-30 18:56 | PN ---
Progress Note (short form) - Note Progress Note: ID Consult dictated Sepsis syndrome ? source ESRD Empiric vanco/ cefepime, adjusted for ESRD
--- NOTE | 2017-12-30 20:43 | CONS ---
DATE OF CONSULTATION: DATE OF DICTATION: 12/30/2017 HISTORY: The patient is a 72-year-old female with a history of end-stage renal disease on hemodialysis and morbid obesity evaluated for sepsis syndrome. The patient states that she had her regular dialysis session on December 28. She reports that after the session she experienced diaphoresis. She was noted to be hypotensive with a systolic blood pressure of 80 and hypothermic. She was transferred to [facility] Emergency Room where she was admitted. Cultures were obtained, and she was empirically treated with vancomycin and Zosyn. At the present time, she reports improvement in her clinical condition. She has no focal complaint. She denies any chest pain, shortness of breath, cough, or sputum production. No abdominal pain or vomiting. She has a dialysis catheter in the right chest, which she reports was placed during her last hospital admission. According to the operative notes, it was placed on December 14. She denies any tenderness at the catheter site. No reports of erythema or drainage. PAST MEDICAL HISTORY: Positive for end-stage renal disease on hemodialysis, morbid obesity, hypertension, diabetes mellitus, atrial fibrillation, COPD. PAST SURGICAL HISTORY: Status post right dialysis catheter insertion, section, tubal ligation. ALLERGIES: No known allergies. MEDICATIONS: Vitamin C, Lipitor, Colace, folic acid, Neurontin, isosorbide, lactulose, metoprolol, Procardia. SOCIAL HISTORY: She lives at home. She is a nonsmoker, nondrinker. SYSTEMS REVIEW: Neurologic: No loss of consciousness, seizure activity, or focal weakness. Cardiac: Negative chest pain or palpitations. Respiratory: Negative cough or sputum production. Gastrointestinal: Negative vomiting or diarrhea. Genitourinary: End-stage renal disease on hemodialysis. LABORATORY DATA: White count on admission 10.5, hematocrit 27.1, platelet count 194, BUN 23, creatinine 3.6. Urinalysis 6 white cells. Blood and urine cultures are pending. Chest x-ray was negative for acute infiltrate. PHYSICAL EXAMINATION: General: She is awake and alert. She is not acutely toxic appearing. Morbidly obese. Vital Signs: Temperature 98.4, blood pressure 104/70, pulse 80 and regular, respirations 18 per minute. HEENT: Sclerae anicteric. Heart: Sounds S1, S2. Skin: Dialysis catheter site, no erythema or drainage. There is a sacral wound present. No drainage is noted. Abdomen: Obese, soft. No tenderness elicited. No mass, rebound, or rigidity. Extremities: Positive for edema. There is a dry ulcer present on the left heel, which does not appear to be infected. IMPRESSION: 1. Hypotension. 2. Hypothermia. 3. Diaphoresis consistent with sepsis syndrome of unclear source. PLAN: We will empirically cover for the possibility of sepsis secondary to catheter, pneumonia, and urinary tract with vancomycin and cefepime adjusted for end-stage renal disease. Await culture results. Thank you for the kind referral. SHELLEY BRADFORD M.D. [id number]
[2017-12-30] MEDS: CEFEPIME HCL/D5W 1 GM/50 ML BAG IVPB SCH (21:22)
[2017-12-30] MEDS: INSULIN (LEVEMIR) 100 UNITS/ML UNITS SQ SCH (21:24)
[2017-12-30] MEDS: ATORVASTATIN CA 10 MG TABLET (FP) PO SCH (21:24)
[2017-12-30] MEDS: BISACODYL 5 MG TABLET.DR (FP) PO SCH (21:24)
[2017-12-30] MEDS: DOCUSATE SODIUM 100 MG CAPSULE (FP) PO SCH (21:34)
[2017-12-31] MEDS: GABAPENTIN 100 MG CAPSULE (FP) PO SCH ×3 (05:19→21:30)
[2017-12-31] MEDS: oxyCODONE HCL 5 MG TABLET PO PRN (05:19)
[2017-12-31] MEDS: ACETAMINOPHEN 325 MG TABLET (FP) PO PRN (05:20)
[2017-12-31] MEDS: INSULIN (NOVOLOG) ASPART 100 UNITS/ML 10ML VIAL SQ SCH ×3 (06:02→17:20)
[2017-12-31] MEDS: INSULIN SLIDING SCALE (NOVOLOG) 1 VIAL SQ SCH ×3 (06:02→17:43)
[2017-12-31] MEDS ORDERED: INSULIN (NOVOLOG) ASPART 100 UNITS/ML 10ML VIAL ONE (06:34)
[2017-12-31] MEDS ORDERED: MAG HYDROX/AL HYDROX/SIMETH 30 ML UNIT-DOSE CUP PO ONE (06:45)
[2017-12-31] MEDS: SIMETHICONE 80 MG TAB.CHEW (FP) PO PRN (07:24)
[2017-12-31] MEDS ORDERED: SODIUM CHLORIDE 250 ML IV PRN (08:24)
--- NOTE | 2017-12-31 08:40 | PN ---
Progress Note (short form) - Note Progress Note: constipated gas+ undergoing dialysis Vital Signs - 24 hr 12/31/17 12/31/17 12/31/17 02:00 06:00 07:45 Temperature 97.7 F 98.0 F 98.1 F Pulse Rate 75 71 70 Respiratory 20 18 18 Rate Blood Pressure 121/58 L 117/58 L 155/43 L O2 Sat by Pulse Oximetry (%) 12/31/17 12/31/17 12/31/17 07:50 08:20 08:50 Temperature Pulse Rate 65 66 61 Respiratory 18 18 18 Rate Blood Pressure 137/60 134/62 147/68 O2 Sat by Pulse Oximetry (%) 12/31/17 12/31/17 12/31/17 09:00 09:20 09:50 Temperature Pulse Rate 80 79 Respiratory 18 18 Rate Blood Pressure 137/84 162/68 O2 Sat by Pulse 98 Oximetry (%) Current Medications Generic Name Dose Route Start Last Admin Trade Name Freq PRN Reason Stop Dose Admin Acetaminophen 325 mg 12/29/17 14:56 12/31/17 05:20 Tylenol - PO 325 mg Q6H PRN Administration PAIN 6-10 Atorvastatin Calcium 10 mg 12/29/17 22:00 12/31/17 21:30 Lipitor - PO 10 mg HS [facility] Administration Bisacodyl 5 mg 12/29/17 22:00 12/31/17 21:30 Dulcolax - PO 5 mg HS [facility] Administration Budesonide/Formoterol Fumarate 2 puff 12/29/17 22:00 12/31/17 21:30 Symbicort 160/4.5mcg - IH 2 puff BID [facility] Administration Folic Acid 1 mg 12/30/17 10:00 12/31/17 11:13 Folic Acid - PO 1 mg DAILY [facility] Administration Gabapentin 100 mg 12/29/17 14:51 12/31/17 21:30 Neurontin - PO 100 mg TID [facility] Administration Cefepime HCl 1 gm in 50 mls @ 100 mls/hr 12/30/17 19:00 12/31/17 18:21 Maxipime 1 Gm Premix Ivpb IVPB 100 mls/hr Q24H [facility] Administration Protocol Insulin Aspart 5 units 12/29/17 16:30 12/31/17 17:20 Novolog Vial SQ 5 units TIDAC [facility] Administration Insulin Aspart 1 vial 12/29/17 16:30 12/31/17 17:43 Novolog Vial Sliding Scale - SQ 2 units TIDAC [facility] Administration Protocol Insulin Detemir 33 units 12/29/17 22:00 12/31/17 21:29 Levemir Vial SQ 33 units HS [facility] Administration Isosorbide Mononitrate 60 mg 12/30/17 10:00 12/31/17 11:13 Imdur - PO 60 mg DAILY [facility] Administration Lactulose 10 gm 12/29/17 22:00 Cephulac (Oral Use) PO HS PRN CONSTIPATION Metoprolol Tartrate 50 mg 12/31/17 12:15 12/31/17 21:30 Lopressor - PO 50 mg BID [facility] Administration Multivit/Ca Carb/B Cmplx/FA/Prenat 1 tablet 12/30/17 10:00 12/31/17 11:13 Nephro-Essie - PO 1 tablet DAILY [facility] Administration Oxycodone HCl 5 mg 12/29/17 14:56 12/31/17 05:19 Roxicodone - PO 5 mg Q6H PRN Administration PAIN 6-10 Polyethylene Glycol 17 gm 12/31/17 08:41 12/31/17 12:00 Miralax (For Daily Use) - PO 17 grams DAILY PRN Administration CONSTIPATION Polysaccharide Iron Complex 150 mg 12/30/17 10:00 12/31/17 11:14 Niferex-150 - PO 150 mg DAILY [facility] Administration Ranitidine HCl 150 mg 12/30/17 10:00 12/31/17 11:13 Zantac - PO 150 mg DAILY [facility] Administration Senna 2 tab 12/31/17 22:00 12/31/17 21:30 Senna - PO 2 tab HS [facility] Administration Silver Sulfadiazine 1 applic 12/29/17 22:00 12/31/17 21:35 Silvadene - TP 1 applic BID [facility] Administration Simethicone 80 mg 12/29/17 14:00 12/31/17 07:24 Mylicon - PO 80 mg Q6H PRN Administration DYSPEPSIA Laboratory Results - last 24 hr 12/31/17 12/31/17 12/31/17 05:11 06:00 11:16 POC Glucometer 145 108 Random Vancomycin 14.4 L 12/31/17 12/31/17 16:41 21:28 POC Glucometer 165 187 Random Vancomycin S1 S2 Irregular Lungs decreased Abd- soft, obese, NT , BS+ Edema decreased PLAN- enema as needed continue with iv antibiotics hd per renal Problem List - Problems (1) End stage renal disease on dialysis Code(s): N18.6 - END STAGE RENAL DISEASE; Z99.2 - DEPENDENCE ON RENAL DIALYSIS (2) Sepsis Code(s): A41.9 - SEPSIS, UNSPECIFIED ORGANISM (3) Afib Code(s): I48.91 - UNSPECIFIED ATRIAL FIBRILLATION Qualifiers: Atrial fibrillation type: persistent Qualified Code(s): I48.1 - Persistent atrial fibrillation (4) CHF (congestive heart failure) Code(s): I50.9 - HEART FAILURE, UNSPECIFIED (5) Diabetes mellitus Code(s): E11.9 - TYPE 2 DIABETES MELLITUS WITHOUT COMPLICATIONS Qualifiers: Diabetes mellitus type: type 2 Diabetes mellitus complication status: with kidney complications Diabetes mellitus complication detail: with chronic kidney disease Chronic kidney disease stage: on chronic dialysis
[2017-12-31] MEDS ORDERED: EPOETIN ALFA 10,000 UNIT/1 ML VIAL IVPUSH ONE (10:00)
[2017-12-31] MEDS ORDERED: PT OWN MED DRAWER 7, Y5N ONE ×2 (11:06→21:25)
[2017-12-31] MEDS: ISOSORBIDE MONONITRATE 60 MG TAB.SR.24H (FP) PO SCH (11:13)
[2017-12-31] MEDS: VITAMIN B COMP W-C 1 EA TABLET PO SCH (11:13)
[2017-12-31] MEDS: RANITIDINE HCL 150 MG TABLET (FP) PO SCH (11:13)
[2017-12-31] MEDS: FOLIC ACID 1 MG TABLET (FP) PO SCH (11:13)
[2017-12-31] MEDS: IRON POLYSACCHARIDES 150 MG CAPSULE PO SCH (11:14)
[2017-12-31] MEDS: SILVER SULFADIAZINE 1% TOP CREAM 400 GM JAR TP SCH ×2 (11:14→21:35)
[2017-12-31] MEDS: BUDESONIDE/FORMETEROL FUMARATE 160/4.5 mcg INHALER IH SCH ×2 (11:14→21:30)
--- NOTE | 2017-12-31 11:19 | PN ---
Progress Note (short form) - Note Progress Note: RENAL pt seen during hd has constipation and is very uncomfortable Last Vital Signs Temp Pulse Resp BP Pulse Ox 98.1 F 76 18 155/53 L 98 12/31/17 07:45 12/31/17 11:06 12/31/17 11:06 12/31/17 11:06 12/31/17 09:00 lungs clear cvs s1s2 rr abd sofr ext +edema neuro a+ox3 CBC, BMP 12/30/17 06:00 12/30/17 06:00 Current Medications Generic Name Dose Route Start Last Admin Trade Name Freq PRN Reason Stop Dose Admin Acetaminophen 325 mg 12/29/17 14:56 12/31/17 05:20 Tylenol - PO 325 mg Q6H PRN Administration PAIN 6-10 Atorvastatin Calcium 10 mg 12/29/17 22:00 12/30/17 21:24 Lipitor - PO 10 mg HS BRYANT Administration Bisacodyl 5 mg 12/29/17 22:00 12/30/17 21:24 Dulcolax - PO 5 mg HS BRYANT Administration Budesonide/Formoterol Fumarate 2 puff 12/29/17 22:00 12/30/17 21:29 Symbicort 160/4.5mcg - IH 2 puff BID BRYANT Administration Folic Acid 1 mg 12/30/17 10:00 12/30/17 10:50 Folic Acid - PO 1 mg DAILY BRYANT Administration Gabapentin 100 mg 12/29/17 14:51 12/31/17 05:19 Neurontin - PO 100 mg TID BRYANT Administration Cefepime HCl 1 gm in 50 mls @ 100 mls/hr 12/30/17 19:00 12/30/17 21:22 Maxipime 1 Gm Premix Ivpb IVPB 100 mls/hr Q24H BRYANT Administration Protocol Insulin Aspart 5 units 12/29/17 16:30 12/31/17 06:02 Novolog Vial SQ 5 units TIDAC [facility] Administration Insulin Aspart 1 vial 12/29/17 16:30 12/31/17 06:02 Novolog Vial Sliding Scale - SQ Not Given TIDAC [facility] Protocol Insulin Detemir 33 units 12/29/17 22:00 12/30/17 21:24 Levemir Vial SQ 33 unit HS BR[facility]ANT Administration Isosorbide Mononitrate 60 mg 12/30/17 10:00 12/30/17 10:48 Imdur - PO 60 mg DAILY BR[facility]ANT Administration Lactulose 10 gm 12/29/17 22:00 Cephulac (Oral Use) PO HS PRN CONSTIPATION Multivit/Ca Carb/B Cmplx/FA/Prenat 1 tablet 12/30/17 10:00 12/30/17 13:12 Nephro-Essie - PO 1 tablet DAILY BR[facility]ANT Administration Oxycodone HCl 5 mg 12/29/17 14:56 12/31/17 05:19 Roxicodone - PO 5 mg Q6H PRN Administration PAIN 6-10 Polyethylene Glycol 17 gm 12/31/17 08:41 Miralax (For Daily Use) - PO DAILY PRN CONSTIPATION Polysaccharide Iron Complex 150 mg 12/30/17 10:00 12/30/17 13:12 Niferex-150 - PO 150 mg DAILY [facility] Administration Ranitidine HCl 150 mg 12/30/17 10:00 12/30/17 10:48 Zantac - PO 150 mg DAILY [facility] Administration Silver Sulfadiazine 1 applic 12/29/17 22:00 12/30/17 21:25 Silvadene - TP 1 applic BID [facility] Administration Simethicone 80 mg 12/29/17 14:00 12/31/17 07:24 Mylicon - PO 80 mg Q6H PRN Administration DYSPEPSIA Impression 1. ESRD- was dialyzed today but could not have UF 2. obesity 3. hyperlipidemia 4. HTN 5. DM 6. CHF 7. CAD 8. anemia 9. a-fib 10. iron deficiency 11. r/o TIA 12. sepsis Plan continue current management tolerated hd well today [facility]
[2017-12-31] MEDS: POLYETHYLENE GLYCOL 3350 119 GM BTL PO PRN (12:00)
--- NOTE | 2017-12-31 12:00 | CON.CARD ---
Consult Consult Specialty:: Cardiology Referred by:: Remedios Reddy MD Reason for Consultation:: Afib - History of Present Illness Chief Complaint: Hypothermia, hypotension History of Present Illness: 72 year old female NHR with a significant past medical history of HTN, HLD, IDDM , diastolic CHF, chronic venous insufficiency, arthritis, Morbid obesity, COPD, Afib on coumadin per INR, Gout, ESRD HD via a chest wall permacath, anemia, who presents to the ED with hypothermia and hypotension with suspicion of sepsis and started on empiric abx. She denies fevers or chills. She denies chest pain or shortness of breath. Reports constipation. Rapid afib on telemetry off beta blockers. - Past Medical History Cardio/Vascular: Yes: AFIB (anticoagulants for 5 yrs , on coumadin), CHF, HTN, Hyperlipdemia Pulmonary: Yes: Asthma, COPD Gastrointestinal: Yes: Constipation, GERD, Other (does not remember about colonscopy ) Renal/: Yes: Renal Inusuff (ESRD on HD), UTI (h/o recurrent uti) ...: No Psych: Yes: Depression (because son at age 38 yrs by sucide ) Musculoskeletal: Yes: Osteoarthritis Endocrine: Yes: Diabetes Mellitus (IDDM since age 40 yrs ), Other (morbid obesity ) Additional Medical History: morbid obesity - Past Surgical History Past Surgical History: Yes: (40 years ago per patient), Tubal Ligation - Alcohol/Substance Use Hx Alcohol Use: No History of Substance Use: reports: None - Smoking History Smoking history: Never smoked Have you smoked in the past 12 months: No Aproximately how many cigarettes per day: 0 - Social History Usual Living Arrangement: [facility] (for 2 yrs at [facility]) ADL: Support Services History of Recent Travel: No Home Medications - Allergies Allergies/Adverse Reactions: Allergies Allergy/AdvReac Type Severity Reaction Status Date / Time No Known Allergies Allergy Verified 12/29/17 10:11 - Home Medications Home Medications: Ambulatory Orders Ascorbic Acid [C-500] 250 mg PO DAILY 10/14/17 Atorvastatin Calcium 10 mg PO HS 10/14/17 Cholecalciferol (Vitamin D3) [Vitamin D3] 1,000 unit PO DAILY 10/14/17 Docusate Sodium [Colace] 100 mg PO HS 10/14/17 Folic Acid 1 mg PO DAILY 10/14/17 Gabapentin [Neurontin -] 100 mg PO Q8H 10/14/17 Insulin Detemir [Levemir Flextouch] 33 unit SQ HS 10/14/17 Isosorbide Mononitrate 60 mg PO DAILY 10/14/17 Lactulose 10 gm PO HS 10/14/17 Metoprolol Tartrate 50 mg PO TID 10/14/17 Multivitamin [Multiple Vitamins] 1 each PO DAILY 10/14/17 Nifedipine ER [Procardia XL -] 90 mg PO DAILY 10/14/17 Ranitidine HCl 150 mg PO DAILY 10/14/17 Bisacodyl [Bisacodyl -] 5 mg PO HS tablet. 11/14/17 Budesonide/Formeterol Fumarate [SYMBICORT 160/4.5mcg -] 1 inh PO DAILY 12/07/17 Epoetin [place] [Procrit] 10,000 unit IJ MOWEFR 12/07/17 Insulin Aspart [Novolog Flexpen] 5 unit SQ TIDCM 12/07/17 Iron Polysaccharide Complex [Ferrex 150] 150 mg PO DAILY 12/07/17 Magnesium Hydrox 2400MG/30Ml [Milk of Magnesia -] 30 ml PO Q12H PRN 12/07/17 Oxycodone HCl/Acetaminophen [Percocet 5-325 mg Tablet] 2 tab PO TID 12/07/17 Silver Sulfadiazine 1% Top Cr [Silvadene -] 1 applic TP BID 12/07/17 Warfarin Sodium [Coumadin] 3 mg PO HS 12/07/17 Furosemide [Lasix -] 80 mg PO Q48H #20 tablet 12/21/17 Simethicone [Mylicon -] 80 mg PO QID PRN #20 tab.chew 12/21/17 Bacitracin - [Bacitracin Topical Ointment -] 500 unit TP BID MDD R NECK Vitamin B Comp W-C [Nephro-Essie -] 0.8 mg PO DAILY 12/29/17 Zinc Sulfate 220 mg PO DAILY MDD for 10 days 12/29/17 Family Disease History - Family Disease History Family Disease History: Diabetes: Father ( age 44, complications DM), Mother ( age 83), Daughter (Alive, ESRD), Heart Disease: Mother, Other: Son (, age 38 suicide), Daughter Review of Systems - Review of Systems Constitutional: reports: No Symptoms Eyes: reports: No Symptoms HENT: reports: No Symptoms Neck: reports: No Symptoms Cardiovascular: reports: No Symptoms Respiratory: reports: No Symptoms Gastrointestinal: reports: Constipation Genitourinary: reports: No Symptoms Musculoskeletal: reports: No Symptoms Integumentary: reports: No Symptoms Neurological: reports: No Symptoms Endocrine: reports: No Symptoms Hematology/Lymphatic: reports: No Symptoms Vital Signs: Vital Signs Temperature 98.1 F 12/31/17 07:45 Pulse Rate 76 12/31/17 11:06 Respiratory Rate 18 12/31/17 11:06 Blood Pressure 155/53 L 12/31/17 11:06 O2 Sat by Pulse Oximetry (%) 98 12/31/17 09:00 Constitutional: Yes: No Distress, Calm Neck: Yes: Supple Respiratory: Yes: Regular, Diminished, On Nasal O2 Gastrointestinal: Yes: Normal Bowel Sounds, Soft, Abdomen, Obese Cardiovascular: Yes: Tachycardia, Pulse Irregular JVD: No Carotid Bruit: No Heart Sounds: Yes: S1, S2 Edema: No - Other Data Labs, Other Data: CBC, BMP 12/30/17 06:00 12/30/17 06:00 INR, PTT INR 3.89 (0.83-1.09) H 12/30/17 06:00 Tele: Afib 160s Afib @ [address]-T changes and prolonged QTc Echo: Report Reviewed Ejection Fraction %: LVEF > or = 40 % Imaging - Results Chest X-ray: Report Reviewed (NAD) Problem List - Problems (1) End stage renal disease on dialysis Code(s): N18.6 - END STAGE RENAL DISEASE; Z99.2 - DEPENDENCE ON RENAL DIALYSIS (2) Sepsis Code(s): A41.9 - SEPSIS, UNSPECIFIED ORGANISM (3) Afib Code(s): I48.91 - UNSPECIFIED ATRIAL FIBRILLATION Qualifiers: Atrial fibrillation type: persistent Qualified Code(s): I48.1 - Persistent atrial fibrillation (4) Anemia Code(s): D64.9 - ANEMIA, UNSPECIFIED Qualifiers: Anemia type: due to chronic kidney disease Chronic kidney disease stage: on chronic dialysis Qualified Code(s): N18.6 - End stage renal disease; D63.1 - Anemia in chronic kidney disease; Z99.2 - Dependence on renal dialysis (5) Anticoagulated on Coumadin Code(s): Z51.81 - ENCOUNTER FOR THERAPEUTIC DRUG LEVEL MONITORING; Z79.01 - DIRECTOR OF ENTERPRISE APPLICATIONS (CURRENT) USE OF 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 (6) Diabetes mellitus Code(s): E11.9 - TYPE 2 DIABETES MELLITUS WITHOUT COMPLICATIONS Qualifiers: Diabetes mellitus type: type 2 Diabetes mellitus complication status: with kidney complications Diabetes mellitus complication detail: with chronic kidney disease Chronic kidney disease stage: on chronic dialysis (7) Diastolic CHF, acute on chronic Code(s): I50.33 - ACUTE ON CHRONIC DIASTOLIC (CONGESTIVE) HEART FAILURE (8) Morbid obesity Code(s): E66.01 - MORBID (SEVERE) OBESITY DUE TO EXCESS CALORIES (9) Sleep apnea in adult Code(s): G47.33 - OBSTRUCTIVE SLEEP APNEA (ADULT) (PEDIATRIC) (10) Supratherapeutic INR Code(s): R79.1 - ABNORMAL COAGULATION PROFILE Assessment/Plan echo 10/2017 TDS, normal LV fxn echo 09/2015 tds echo 01/2013: tds, nl lvef, valves not seen well cath 11/2007: normal cors 1. Sepsis syndrome ? source 2. Persistent afib with RVR on coumadin with supratherapeutic INR 3. Chronic diastolic failure 4. HTN 5. Hyperlipidemia 6. ESRD on HD 7. Morbid obesity, with OSAS/OHS suspected PLAN: 1. Dose Coumadin as per INR 2-3, hold today's dose 2. Resume Lopressor 50 bid with uptitration as tolerated 3. Resume Procardia XL 90 qd as hemodynamics tolerate 4. Ideally should be on ACEI or ARBS, once renal function at baseline 5. Continue Imdur 60 qd 6. HD per renal 7. Continue Lipitor 10 qhs 8. Empiric vanco/ cefepime, adjusted for ESRD per ID, bowel regimen 9. Thank you for consultative opportunity
[2017-12-31] MEDS: METOPROLOL TARTRATE 50 MG TABLET (FP) PO SCH ×2 (12:34→21:30)
[2017-12-31] MEDS ORDERED: BISACODYL 10 MG SUPP.RECT RC ONE (14:30)
[2017-12-31] MEDS: CEFEPIME HCL/D5W 1 GM/50 ML BAG IVPB SCH (18:21)
[2017-12-31] MEDS: INSULIN (LEVEMIR) 100 UNITS/ML UNITS SQ SCH (21:29)
[2017-12-31] MEDS: SENNOSIDES 8.6MG TABLET (FP) PO SCH (21:30)
[2017-12-31] MEDS: ATORVASTATIN CA 10 MG TABLET (FP) PO SCH (21:30)
[2017-12-31] MEDS: BISACODYL 5 MG TABLET.DR (FP) PO SCH (21:30)
[2018-01-01] MEDS ORDERED: METOPROLOL TARTRATE 50 MG TABLET (FP) PO ONE (05:00)
[2018-01-01] MEDS: GABAPENTIN 100 MG CAPSULE (FP) PO SCH ×3 (05:10→21:39)
[2018-01-01] MEDS: dilTIAZem HCL 50 MG/10 ML - 10 ML VIAL IVPUSH PRN ×2 (05:11→23:14)
[2018-01-01] MEDS: METOPROLOL TARTRATE 50 MG TABLET (FP) PO SCH ×3 (05:27→21:39)
[2018-01-01] MEDS: INSULIN SLIDING SCALE (NOVOLOG) 1 VIAL SQ SCH ×3 (06:07→16:34)
[2018-01-01 07:59] LABS: INR 2.42 (0.83-1.09); PROTHROMBIN TIME (PATIENT) 27.4 SEC (9.7-13.0)
[2018-01-01] MEDS ORDERED: PT OWN MED DRAWER 7, Y5N ONE ×2 (09:44→21:28)
[2018-01-01] MEDS: BUDESONIDE/FORMETEROL FUMARATE 160/4.5 mcg INHALER IH SCH ×2 (10:01→21:41)
[2018-01-01] MEDS: VITAMIN B COMP W-C 1 EA TABLET PO SCH (10:01)
[2018-01-01] MEDS: FOLIC ACID 1 MG TABLET (FP) PO SCH (10:01)
[2018-01-01] MEDS: ISOSORBIDE MONONITRATE 60 MG TAB.SR.24H (FP) PO SCH (10:01)
[2018-01-01] MEDS: IRON POLYSACCHARIDES 150 MG CAPSULE PO SCH (10:01)
[2018-01-01] MEDS: RANITIDINE HCL 150 MG TABLET (FP) PO SCH (10:01)
[2018-01-01] MEDS: SILVER SULFADIAZINE 1% TOP CREAM 400 GM JAR TP SCH ×2 (10:02→21:41)
[2018-01-01] MEDS: INSULIN (NOVOLOG) ASPART 100 UNITS/ML 10ML VIAL SQ SCH ×3 (10:04→16:34)
[2018-01-01] MEDS: POLYETHYLENE GLYCOL 3350 119 GM BTL PO PRN (11:28)
--- NOTE | 2018-01-01 11:40 | PN ---
Progress Note (short form) - Note Progress Note: had a large bm yesterday no complaints feels well Vital Signs - 24 hr 12/31/17 12/31/17 01/01/18 19:54 21:00 02:00 Temperature 99.3 F 97.9 F Pulse Rate 87 112 H Respiratory 20 18 20 Rate Blood Pressure 143/65 140/81 O2 Sat by Pulse 99 Oximetry (%) 01/01/18 01/01/18 01/01/18 04:30 05:10 06:23 Temperature 97.9 F 98.0 F Pulse Rate 140 H 143 H 70 Respiratory 20 20 18 Rate Blood Pressure 146/73 90/60 112/59 L O2 Sat by Pulse Oximetry (%) 01/01/18 01/01/18 08:50 13:41 Temperature 98.6 F 98.2 F Pulse Rate 106 H 78 Respiratory 18 18 Rate Blood Pressure 128/62 133/66 O2 Sat by Pulse 99 Oximetry (%) Current Medications Generic Name Dose Route Start Last Admin Trade Name Freq PRN Reason Stop Dose Admin Acetaminophen 325 mg 12/29/17 14:56 12/31/17 05:20 Tylenol - PO 325 mg Q6H PRN Administration PAIN 6-10 Atorvastatin Calcium 10 mg 12/29/17 22:00 12/31/17 21:30 Lipitor - PO 10 mg HS BRYANT Administration Budesonide/Formoterol Fumarate 2 puff 12/29/17 22:00 01/01/18 10:01 Symbicort 160/4.5mcg - IH 2 puff BID BRYANT Administration Diltiazem HCl 10 mg 01/01/18 04:52 01/01/18 05:11 Cardizem Injection - IVPUSH 10 mg Q4H PRN Administration HR > 110 Folic Acid 1 mg 12/30/17 10:00 01/01/18 10:01 Folic Acid - PO 1 mg DAILY BRYANT Administration Gabapentin 100 mg 12/29/17 14:51 01/01/18 13:33 Neurontin - PO 100 mg TID BRYANT Administration Cefepime HCl 1 gm in 50 mls @ 100 mls/hr 12/30/17 19:00 12/31/17 18:21 Maxipime 1 Gm Premix Ivpb IVPB 100 mls/hr Q24H BRYANT Administration Protocol Insulin Aspart 5 units 12/29/17 16:30 01/01/18 12:03 Novolog Vial SQ 5 units TIDAC [facility] Administration Insulin Aspart 1 vial 12/29/17 16:30 01/01/18 12:03 Novolog Vial Sliding Scale - SQ 4 units TIDAC [facility] Administration Protocol Insulin Detemir 33 units 12/29/17 22:00 12/31/17 21:29 Levemir Vial SQ 33 units HS [facility] Administration Isosorbide Mononitrate 60 mg 12/30/17 10:00 01/01/18 10:01 Imdur - PO 60 mg DAILY BRYANT Administration Metoprolol Tartrate 50 mg 01/01/18 06:00 01/01/18 13:33 Lopressor - PO 50 mg TID [facility] Administration Multivit/Ca Carb/B Cmplx/FA/Prenat 1 tablet 12/30/17 10:00 01/01/18 10:01 Nephro-Essie - PO 1 tablet DAILY [facility] Administration Polyethylene Glycol 17 gm 01/01/18 22:00 Miralax (For Daily Use) - PO BID [facility] Polysaccharide Iron Complex 150 mg 12/30/17 10:00 01/01/18 10:01 Niferex-150 - PO 150 mg DAILY [facility] Administration Ranitidine HCl 150 mg 12/30/17 10:00 01/01/18 10:01 Zantac - PO 150 mg DAILY [facility] Administration Senna 2 tab 12/31/17 22:00 12/31/17 21:30 Senna - PO 2 tab HS [facility] Administration Silver Sulfadiazine 1 applic 12/29/17 22:00 01/01/18 10:02 Silvadene - TP 1 applic BID [facility] Administration Simethicone 80 mg 12/29/17 14:00 12/31/17 07:24 Mylicon - PO 80 mg Q6H PRN Administration DYSPEPSIA Warfarin Sodium 3 mg 01/01/18 18:00 Coumadin - PO DAILY@1800 [facility] Laboratory Results - last 24 hr 12/31/17 12/31/17 01/01/18 16:41 21:28 05:03 PT with INR INR POC Glucometer 165 187 128 01/01/18 01/01/18 01/01/18 06:00 06:21 11:24 PT with INR 27.40 H INR 2.42 H POC Glucometer 127 203 S1 S2 Irregular Lungs decreased Abd- soft, obese, NT , BS+ Edema decreased PLAN- cultures negative restart Coumadin - INR therapeutic continue with meds dc planning Problem List - Problems (1) End stage renal disease on dialysis Code(s): N18.6 - END STAGE RENAL DISEASE; Z99.2 - DEPENDENCE ON RENAL DIALYSIS (2) Sepsis Code(s): A41.9 - SEPSIS, UNSPECIFIED ORGANISM (3) Afib Code(s): I48.91 - UNSPECIFIED ATRIAL FIBRILLATION Qualifiers: Atrial fibrillation type: persistent Qualified Code(s): I48.1 - Persistent atrial fibrillation (4) CHF (congestive heart failure) Code(s): I50.9 - HEART FAILURE, UNSPECIFIED (5) Diabetes mellitus Code(s): E11.9 - TYPE 2 DIABETES MELLITUS WITHOUT COMPLICATIONS Qualifiers: Diabetes mellitus type: type 2 Diabetes mellitus complication status: with kidney complications Diabetes mellitus complication detail: with chronic kidney disease Chronic kidney disease stage: on chronic dialysis
--- NOTE | 2018-01-01 11:50 | PN ---
Progress Note (short form) - Note Progress Note: RENAL doing well comfortable Last Vital Signs Temp Pulse Resp BP Pulse Ox 98.6 F 106 H 18 128/62 99 01/01/18 08:50 01/01/18 08:50 01/01/18 08:50 01/01/18 08:50 01/01/18 08:50 lungs clear cvs s1s2 rr abd sofr ext +edema neuro a+ox3 CBC, BMP 12/30/17 06:00 12/30/17 06:00 Current Medications Generic Name Dose Route Start Last Admin Trade Name Freq PRN Reason Stop Dose Admin Acetaminophen 325 mg 12/29/17 14:56 12/31/17 05:20 Tylenol - PO 325 mg Q6H PRN Administration PAIN 6-10 Atorvastatin Calcium 10 mg 12/29/17 22:00 12/31/17 21:30 Lipitor - PO 10 mg HS BRYANT Administration Budesonide/Formoterol Fumarate 2 puff 12/29/17 22:00 01/01/18 10:01 Symbicort 160/4.5mcg - IH 2 puff BID BRYANT Administration Diltiazem HCl 10 mg 01/01/18 04:52 01/01/18 05:11 Cardizem Injection - IVPUSH 10 mg Q4H PRN Administration HR > 110 Folic Acid 1 mg 12/30/17 10:00 01/01/18 10:01 Folic Acid - PO 1 mg DAILY BRYANT Administration Gabapentin 100 mg 12/29/17 14:51 01/01/18 05:10 Neurontin - PO 100 mg TID BRY[facility] Administration Cefepime HCl 1 gm in 50 mls @ 100 mls/hr 12/30/17 19:00 12/31/17 18:21 Maxipime 1 Gm Premix Ivpb IVPB 100 mls/hr Q24H BRYANT Administration Protocol Insulin Aspart 5 units 12/29/17 16:30 01/01/18 10:04 Novolog Vial SQ 5 units TIDAC [facility] Administration Insulin Aspart 1 vial 12/29/17 16:30 01/01/18 06:07 Novolog Vial Sliding Scale - SQ Not Given TIDAC [facility] Protocol Insulin Detemir 33 units 12/29/17 22:00 12/31/17 21:29 Levemir Vial SQ 33 units HS BRYANT Administration Isosorbide Mononitrate 60 mg 12/30/17 10:00 01/01/18 10:01 Imdur - PO 60 mg DAILY BR[facility] Administration Metoprolol Tartrate 50 mg 01/01/18 06:00 01/01/18 05:27 Lopressor - PO Not Given TID [facility] Multivit/Ca Carb/B Cmplx/FA/Prenat 1 tablet 12/30/17 10:00 01/01/18 10:01 Nephro-Essie - PO 1 tablet DAILY [facility] Administration Oxycodone HCl 5 mg 12/29/17 14:56 12/31/17 05:19 Roxicodone - PO 5 mg Q6H PRN Administration PAIN 6-10 Polyethylene Glycol 17 gm 01/01/18 22:00 Miralax (For Daily Use) - PO BID [facility] Polysaccharide Iron Complex 150 mg 12/30/17 10:00 01/01/18 10:01 Niferex-150 - PO 150 mg DAILY [facility] Administration Ranitidine HCl 150 mg 12/30/17 10:00 01/01/18 10:01 Zantac - PO 150 mg DAILY BR[facility] Administration Senna 2 tab 12/31/17 22:00 12/31/17 21:30 Senna - PO 2 tab HS BRYANT Administration Silver Sulfadiazine 1 applic 12/29/17 22:00 01/01/18 10:02 Silvadene - TP 1 applic BID BR[facility]ANT Administration Simethicone 80 mg 12/29/17 14:00 12/31/17 07:24 Mylicon - PO 80 mg Q6H PRN Administration DYSPEPSIA Warfarin Sodium 3 mg 01/01/18 18:00 Coumadin - PO DAILY@1800 [facility] Impression 1. ESRD- was dialyzed today but could not have UF 2. obesity 3. hyperlipidemia 4. HTN 5. DM 6. CHF 7. CAD 8. anemia 9. a-fib 10. iron deficiency 11. r/o TIA 12. sepsis Plan continue hd tiw ok to use augustus inhibitor since patient on HD continue antibiotics coumadin per INR MV
[2018-01-01] MEDS: WARFARIN NA 3 MG TABLET PO SCH (17:06)
[2018-01-01] MEDS: CEFEPIME HCL/D5W 1 GM/50 ML BAG IVPB SCH (18:03)
[2018-01-01] MEDS: INSULIN (LEVEMIR) 100 UNITS/ML UNITS SQ SCH (21:38)
[2018-01-01] MEDS: SENNOSIDES 8.6MG TABLET (FP) PO SCH (21:39)
[2018-01-01] MEDS: POLYETHYLENE GLYCOL 3350 119 GM BTL PO SCH (21:40)
[2018-01-01] MEDS: ATORVASTATIN CA 10 MG TABLET (FP) PO SCH (21:40)
[2018-01-01] MEDS: ACETAMINOPHEN 325 MG TABLET (FP) PO PRN (21:51)
[2018-01-02] MEDS: METOPROLOL TARTRATE 50 MG TABLET (FP) PO SCH ×4 (06:47→22:19)
[2018-01-02] MEDS: GABAPENTIN 100 MG CAPSULE (FP) PO SCH ×3 (06:47→22:19)
[2018-01-02] MEDS: INSULIN SLIDING SCALE (NOVOLOG) 1 VIAL SQ SCH ×3 (06:51→17:19)
[2018-01-02] MEDS: INSULIN (NOVOLOG) ASPART 100 UNITS/ML 10ML VIAL SQ SCH ×3 (06:51→17:24)
[2018-01-02] MEDS ORDERED: INSULIN (LEVEMIR) 100 UNITS/ML UNITS SQ ONE (07:23)
[2018-01-02] MEDS ORDERED: INSULIN (NOVOLOG) ASPART 100 UNITS/ML 10ML VIAL ONE ×2 (07:23→11:41)
--- NOTE | 2018-01-02 09:38 | PN ---
Progress Note, Physician History of Present Illness: Rate-control improved after uptitration of metoprolol. Denies chest pain or dyspnea. - Current Medication List Current Medications: Active Medications Acetaminophen (Tylenol -) 325 mg PO Q6H PRN PRN Reason: PAIN 6-10 Last Admin: 01/01/18 21:51 Dose: 325 mg Atorvastatin Calcium (Lipitor -) 10 mg PO HS [facility] Last Admin: 01/01/18 21:40 Dose: 10 mg Budesonide/Formoterol Fumarate (Symbicort 160/4.5mcg -) 2 puff IH BID [facility] Last Admin: 01/01/18 21:41 Dose: 2 puff Diltiazem HCl (Cardizem Injection -) 10 mg IVPUSH Q4H PRN PRN Reason: HR > 110 Last Admin: 01/01/18 23:14 Dose: 10 mg Folic Acid (Folic Acid -) 1 mg PO DAILY [facility] Last Admin: 01/01/18 10:01 Dose: 1 mg Gabapentin (Neurontin -) 100 mg PO TID [facility] Last Admin: 01/02/18 06:47 Dose: 100 mg Cefepime HCl (Maxipime 1 Gm Premix Ivpb) 1 gm in 50 mls @ 100 mls/hr IVPB Q24H [facility]; Protocol Last Admin: 01/01/18 18:03 Dose: 100 mls/hr [facility]ulin [facility] Admin: 01/02/18 06:51 Dose: 5 units Insulin Aspart (Novolog Vial Sliding Scale -) 1 vial SQ TIDAC [facility]; Protocol Last Admin: 01/02/18 06:51 Dose: 2 units Insulin Detemir (Levemir Vial) 33 units SQ [facility] Last Admin: 01/01/18 21:38 Dose: 33 units Isosorbide Mononitrate (Imdur -) 60 mg PO DAILY [facility] Last Admin: 01/01/18 10:01 Dose: 60 mg Lisinopril (Prinivil) 5 mg PO DAILY [facility] Metoprolol Tartrate (Lopressor -) 50 mg PO TID [facility] Last Admin: 01/02/18 06:47 Dose: 50 mg Multivit/Ca Carb/B Cmplx/FA/Prenat (Nephro-Essie -) 1 tablet PO DAILY [facility] Last Admin: 01/01/18 10:01 Dose: 1 tablet Polyethylene Glycol (Miralax (For Daily Use) -) 17 gm PO BID [facility] Last Admin: 01/01/18 21:40 Dose: 17 gm Polysaccharide Iron Complex (Niferex-150 -) 150 mg PO DAILY [facility] Last Admin: 01/01/18 10:01 Dose: 150 mg Ranitidine HCl (Zantac -) 150 mg PO DAILY [facility] Last Admin: 01/01/18 10:01 Dose: 150 mg Senna (Senna -) 2 tab PO HS [facility] Last Admin: 01/01/18 21:39 Dose: 2 tab Silver Sulfadiazine (Silvadene -) 1 applic TP BID [facility] Last Admin: 01/01/18 21:41 Dose: 1 applic Simethicone (Mylicon -) 80 mg PO Q6H PRN PRN Reason: DYSPEPSIA Last Admin: 12/31/17 07:24 Dose: 80 mg Warfarin Sodium (Coumadin -) 3 mg PO DAILY@1800 [facility] Last Admin: 01/01/18 17:06 Dose: 3 mg - Objective Vital Signs: Vital Signs Temperature 97.3 F L 01/02/18 07:21 Pulse Rate 68 01/02/18 07:21 Respiratory Rate 20 01/02/18 07:21 Blood Pressure 111/71 01/02/18 07:21 O2 Sat by Pulse Oximetry (%) 100 01/01/18 21:00 Constitutional: Yes: No Distress, Calm Neck: Yes: Supple Cardiovascular: Yes: Pulse Irregular Respiratory: Yes: Regular, Diminished, On Nasal O2 Gastrointestinal: Yes: Normal Bowel Sounds, Soft, Abdomen, Obese Edema: Yes Edema: LLE: 1+, RLE: 1+ Labs: CBC, BMP 12/30/17 06:00 12/30/17 06:00 INR, PTT INR 2.42 (0.83-1.09) H 01/01/18 06:00 - ....Imaging EKG: Report Reviewed (Tele: PAF->SR) Problem List - Problems (1) End stage renal disease on dialysis Code(s): N18.6 - END STAGE RENAL DISEASE; Z99.2 - DEPENDENCE ON RENAL DIALYSIS (2) Sepsis Code(s): A41.9 - SEPSIS, UNSPECIFIED ORGANISM (3) Afib Code(s): I48.91 - UNSPECIFIED ATRIAL FIBRILLATION Qualifiers: Atrial fibrillation type: persistent Qualified Code(s): I48.1 - Persistent atrial fibrillation (4) Anemia Code(s): D64.9 - ANEMIA, UNSPECIFIED Qualifiers: Anemia type: due to chronic kidney disease Chronic kidney disease stage: on chronic dialysis Qualified Code(s): N18.6 - End stage renal disease; D63.1 - Anemia in chronic kidney disease; Z99.2 - Dependence on renal dialysis (5) Anticoagulated on Coumadin Code(s): Z51.81 - ENCOUNTER FOR THERAPEUTIC DRUG LEVEL MONITORING; Z79.01 - IS ANALYST (CURRENT) USE OF 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 (6) Diabetes mellitus Code(s): E11.9 - TYPE 2 DIABETES MELLITUS WITHOUT COMPLICATIONS Qualifiers: Diabetes mellitus type: type 2 Diabetes mellitus complication status: with kidney complications Diabetes mellitus complication detail: with chronic kidney disease Chronic kidney disease stage: on chronic dialysis (7) Diastolic CHF, acute on chronic Code(s): I50.33 - ACUTE ON CHRONIC DIASTOLIC (CONGESTIVE) HEART FAILURE (8) Morbid obesity Code(s): E66.01 - MORBID (SEVERE) OBESITY DUE TO EXCESS CALORIES (9) Sleep apnea in adult Code(s): G47.33 - OBSTRUCTIVE SLEEP APNEA (ADULT) (PEDIATRIC) (10) Supratherapeutic INR Code(s): R79.1 - ABNORMAL COAGULATION PROFILE Assessment/Plan echo 10/2017 TDS, normal LV fxn echo 09/2015 tds echo 01/2013: tds, nl lvef, valves not seen well cath 11/2007: normal cors 1. Sepsis syndrome ? source 2. Paroxysmal afib with improved rate-control on coumadin with therapeutic INR 3. Chronic diastolic failure 4. HTN 5. Hyperlipidemia 6. ESRD on HD 7. Morbid obesity, with OSAS/OHS suspected PLAN: 1. Dose Coumadin as per INR 2-3 2. Continue Lopressor 50 tid with uptitration as tolerated 3. Started lisinopril 5 qd per renal 4. Continue Imdur 60 qd 5. HD/UF per renal 6. Continue Lipitor 10 qhs 7. Empiric vanco/ cefepime, adjusted for ESRD per ID, bowel regimen
[2018-01-02] MEDS ORDERED: PT OWN MED DRAWER 7, Y5N ONE (09:44)
[2018-01-02] MEDS: RANITIDINE HCL 150 MG TABLET (FP) PO SCH (09:49)
[2018-01-02] MEDS: FOLIC ACID 1 MG TABLET (FP) PO SCH (09:49)
[2018-01-02] MEDS: VITAMIN B COMP W-C 1 EA TABLET PO SCH (09:50)
[2018-01-02] MEDS: LISINOPRIL 5 MG TABLET (FP) PO SCH (09:50)
[2018-01-02] MEDS: IRON POLYSACCHARIDES 150 MG CAPSULE PO SCH (09:50)
[2018-01-02] MEDS: ISOSORBIDE MONONITRATE 60 MG TAB.SR.24H (FP) PO SCH (09:50)
[2018-01-02] MEDS: POLYETHYLENE GLYCOL 3350 119 GM BTL PO SCH ×2 (09:50→22:21)
[2018-01-02] MEDS: BUDESONIDE/FORMETEROL FUMARATE 160/4.5 mcg INHALER IH SCH ×2 (09:55→22:21)
[2018-01-02] MEDS: SILVER SULFADIAZINE 1% TOP CREAM 400 GM JAR TP SCH ×2 (09:58→22:22)
--- NOTE | 2018-01-02 12:28 | PN ---
Progress Note, Physician History of Present Illness: Pt seen and examined at bedside. SHe is awake and alert. She denies shortness of breath. She was last dialyzed on Tuesday. - Current Medication List Current Medications: Active Medications Acetaminophen (Tylenol -) 325 mg PO Q6H PRN PRN Reason: PAIN 6-10 Last Admin: 01/01/18 21:51 Dose: 325 mg Atorvastatin Calcium (Lipitor -) 10 mg PO [facility] Last Admin: 01/01/18 21:40 Dose: 10 mg Budesonide/Formoterol Fumarate (Symbicort 160/4.5mcg -) 2 puff IH BID [facility] Last Admin: 01/02/18 09:55 Dose: 2 puff Diltiazem HCl (Cardizem Injection -) 10 mg IVPUSH Q4H PRN PRN Reason: HR > 110 Last Admin: 01/01/18 23:14 Dose: 10 mg Folic Acid (Folic Acid -) 1 mg PO DAILY [facility] Last Admin: 01/02/18 09:49 Dose: 1 mg Gabapentin (Neurontin -) 100 mg PO TID [facility] Last Admin: 01/02/18 06:47 Dose: 100 mg Cefepime HCl (Maxipime 1 Gm Premix Ivpb) 1 gm in 50 mls @ 100 mls/hr IVPB Q24H [facility]; Protocol Last Admin: 01/01/18 18:03 Dose: 100 mls/hr Insulin Aspart (Novolog Vial) 5 units SQ TIDAC [facility] Last Admin: 01/02/18 12:06 Dose: 5 units Insulin Aspart (Novolog Vial Sliding Scale -) 1 vial SQ TIDAC [facility]; Protocol Last Admin: 01/02/18 11:20 Dose: 2 units Insulin Detemir (Levemir Vial) 33 units SQ [facility] Last Admin: 01/01/18 21:38 Dose: 33 units Isosorbide Mononitrate (Imdur -) 60 mg PO DAILY [facility] Last Admin: 01/02/18 09:50 Dose: 60 mg Lisinopril (Prinivil) 5 mg PO DAILY [facility] Last Admin: 01/02/18 09:50 Dose: 5 mg Metoprolol Tartrate (Lopressor -) 50 mg PO TID [facility] Last Admin: 01/02/18 06:47 Dose: 50 mg Multivit/Ca Carb/B Cmplx/FA/Prenat (Nephro-Essie -) 1 tablet PO DAILY [facility] Last Admin: 01/02/18 09:50 Dose: 1 tablet Oxycodone HCl (Roxicodone -) 5 mg PO Q6H PRN PRN Reason: PAIN SCALE 6 -10 Polyethylene Glycol (Miralax (For Daily Use) -) 17 gm PO BID [facility] Last Admin: 01/02/18 09:50 Dose: 17 gm Polysaccharide Iron Complex (Niferex-150 -) 150 mg PO DAILY [facility] Last Admin: 01/02/18 09:50 Dose: 150 mg Ranitidine HCl (Zantac -) 150 mg PO DAILY [facility] Last Admin: 01/02/18 09:49 Dose: 150 mg Senna (Senna -) 2 tab PO HS [facility] Last Admin: 01/01/18 21:39 Dose: 2 tab Silver Sulfadiazine (Silvadene -) 1 applic TP BID [facility] Last Admin: 01/02/18 09:58 Dose: 1 applic Simethicone (Mylicon -) 80 mg PO Q6H PRN PRN Reason: DYSPEPSIA Last Admin: 12/31/17 07:24 Dose: 80 mg Warfarin Sodium (Coumadin -) 3 mg PO DAILY@1800 [facility] Last Admin: 01/01/18 17:06 Dose: 3 mg - Objective Vital Signs: Vital Signs Temperature 97.3 F L 01/02/18 07:21 Pulse Rate 68 01/02/18 07:21 Respiratory Rate 20 01/02/18 07:21 Blood Pressure 111/71 01/02/18 07:21 O2 Sat by Pulse Oximetry (%) 100 01/01/18 21:00 Constitutional: Yes: Calm Eyes: Yes: Conjunctiva Clear HENT: Yes: Atraumatic Cardiovascular: Yes: S1, S2 Respiratory: Yes: CTA Bilaterally, On Nasal O2 Gastrointestinal: Yes: Soft, Abdomen, Obese Genitourinary: Yes: Incontinence Musculoskeletal: Yes: Muscle Weakness Edema: Yes Edema: LLE: 1+, RLE: 1+ Neurological: Yes: Oriented Psychiatric: Yes: Oriented Labs: CBC, BMP 12/30/17 06:00 12/30/17 06:00 INR, PTT INR 2.42 (0.83-1.09) H 01/01/18 06:00 Problem List - Problems (1) End stage renal disease on dialysis Code(s): N18.6 - END STAGE RENAL DISEASE; Z99.2 - DEPENDENCE ON RENAL DIALYSIS Assessment/Plan Current Medications Generic Name Dose Route Start Last Admin Trade Name Taiwo PRN Reason Stop Dose Admin Acetaminophen 325 mg 12/29/17 14:56 01/01/18 21:51 Tylenol - PO 325 mg Q6H PRN Administration PAIN 6-10 Atorvastatin Calcium 10 mg 12/29/17 22:00 01/01/18 21:40 Lipitor - PO 10 mg HS [facility] Administration Budesonide/Formoterol Fumarate 2 puff 12/29/17 22:00 01/02/18 09:55 Symbicort 160/4.5mcg - IH 2 puff BID [facility] Administration Diltiazem HCl 10 mg 01/01/18 04:52 01/01/18 23:14 Cardizem Injection - IVPUSH 10 mg Q4H PRN Administration HR > 110 Folic Acid 1 mg 12/30/17 10:00 01/02/18 09:49 Folic Acid - PO 1 mg DAILY [facility] Administration Gabapentin 100 mg 12/29/17 14:51 01/02/18 06:47 Neurontin - PO 100 mg TID [facility] Administration Cefepime HCl 1 gm in 50 mls @ 100 mls/hr 12/30/17 19:00 01/01/18 18:03 Maxipime 1 Gm Premix Ivpb IVPB 100 mls/hr Q24H [facility] Administration Protocol Insulin Aspart 5 units 12/29/17 16:30 01/02/18 12:06 Novolog Vial SQ 5 units TIDAC [facility] Administration Insulin Aspart 1 vial 12/29/17 16:30 01/02/18 11:20 Novolog Vial Sliding Scale - SQ 2 units TIDAC [facility] Administration Protocol Insulin Detemir 33 units 12/29/17 22:00 01/01/18 21:38 Levemir Vial SQ 33 units HS [facility] Administration Isosorbide Mononitrate 60 mg 12/30/17 10:00 01/02/18 09:50 Imdur - PO 60 mg DAILY [facility] Administration Lisinopril 5 mg 01/02/18 10:00 01/02/18 09:50 Prinivil PO 5 mg DAILY [facility] Administration Metoprolol Tartrate 50 mg 01/01/18 06:00 01/02/18 06:47 Lopressor - PO 50 mg TID [facility] Administration Multivit/Ca Carb/B Cmplx/FA/Prenat 1 tablet 12/30/17 10:00 01/02/18 09:50 Nephro-Essie - PO 1 tablet DAILY [facility] Administration Oxycodone HCl 5 mg 01/02/18 12:24 Roxicodone - PO Q6H PRN PAIN SCALE 6 -10 Polyethylene Glycol 17 gm 01/01/18 22:00 01/02/18 09:50 Miralax (For Daily Use) - PO 17 gm BID [facility] Administration Polysaccharide Iron Complex 150 mg 12/30/17 10:00 01/02/18 09:50 Niferex-150 - PO 150 mg DAILY [facility] Administration Ranitidine HCl 150 mg 12/30/17 10:00 01/02/18 09:49 Zantac - PO 150 mg DAILY [facility] Administration Senna 2 tab 12/31/17 22:00 01/01/18 21:39 Senna - PO 2 tab HS [facility] Administration Silver Sulfadiazine 1 applic 12/29/17 22:00 01/02/18 09:58 Silvadene - TP 1 applic BID [facility] Administration Simethicone 80 mg 12/29/17 14:00 12/31/17 07:24 Mylicon - PO 80 mg Q6H PRN Administration DYSPEPSIA Warfarin Sodium 3 mg 01/01/18 18:00 01/01/18 17:06 Coumadin - PO 3 mg DAILY@1800 [facility] Administration Impression 1. ESRD 2. obesity 3. hyperlipidemia 4. HTN 5. DM 6. CHF 7. CAD 8. anemia 9. a-fib 10. iron deficiency 11. r/o TIA 12. sepsis Plan - HD in am, pt is off schedule, she lat dialyzed on Tuesday - blood and urine cultures negative so far - monitor blood pressure - bowel regimen for constipation - will follow - check labs, ordered Dr Capps
--- NOTE | 2018-01-02 12:35 | DS ---
Physical Examination Vital Signs: Vital Signs Temperature 97.5 F L 01/02/18 10:00 Pulse Rate 69 01/02/18 10:00 Respiratory Rate 20 01/02/18 10:00 Blood Pressure 134/45 L 01/02/18 10:00 O2 Sat by Pulse Oximetry (%) 100 01/02/18 09:00 Findings/Remarks: patient seen and examined. Chart reviewed. Comfortable. Wants to go back to intermediate Afebrile Constitutional: Yes: No Distress, Calm Eyes: Yes: Conjunctiva Clear Neck: Yes: Supple Cardiovascular: Yes: Pulse Irregular Respiratory: Yes: Diminished Gastrointestinal: Yes: Soft, Abdomen, Obese Edema: No Neurological: Yes: Alert Psychiatric: Yes: Alert Labs: CBC, BMP 12/30/17 06:00 12/30/17 06:00 Discharge Summary Reason For Visit: SEPSIS Current Active Problems End stage renal disease on dialysis (Acute) Sepsis (Acute) Hospital Course: 72 yo F with h/o morbid obesity, htn dm , esrd recently started on dialysis via right tunneled cathetar few weeks ago, here from [facility] for episode of hypothermia, hypotension and diaphoresis. per nursing report pt was hypothermic and bp in 80's. 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 Condition: Improved - Instructions Referrals: Diana Whitmore MD [Primary Care Provider] - - Home Medications Comprehensive Discharge Medication List: Ambulatory Orders Atorvastatin Calcium 10 mg PO HS 10/14/17 Cholecalciferol (Vitamin D3) [Vitamin D3] 1,000 unit PO DAILY 10/14/17 Docusate Sodium [Colace] 100 mg PO HS 10/14/17 Folic Acid 1 mg PO DAILY 10/14/17 Gabapentin [Neurontin -] 100 mg PO Q8H 10/14/17 Insulin Detemir [Levemir Flextouch] 33 unit SQ HS 10/14/17 Isosorbide Mononitrate 60 mg PO DAILY 10/14/17 Lactulose 10 gm PO HS 10/14/17 Metoprolol Tartrate 50 mg PO TID 10/14/17 Multivitamin [Multiple Vitamins] 1 each PO DAILY 10/14/17 Ranitidine HCl 150 mg PO DAILY 10/14/17 Bisacodyl [Bisacodyl -] 5 mg PO HS tablet. 11/14/17 Budesonide/Formeterol Fumarate [SYMBICORT 160/4.5mcg -] 1 inh PO DAILY 12/07/17 Epoetin [place] [Procrit] 10,000 unit IJ MOWEFR 12/07/17 Insulin Aspart [Novolog Flexpen] 5 unit SQ TIDCM 12/07/17 Iron Polysaccharide Complex [Ferrex 150] 150 mg PO DAILY 12/07/17 Silver Sulfadiazine 1% Top Cr [Silvadene -] 1 applic TP BID 12/07/17 Warfarin Sodium [Coumadin] 3 mg PO HS 12/07/17 Furosemide [Lasix -] 80 mg PO Q48H #20 tablet 12/21/17 Simethicone [Mylicon -] 80 mg PO QID PRN #20 tab.chew 12/21/17 Bacitracin - [Bacitracin Topical Ointment -] 500 unit TP BID [facility]D R NECK Vitamin B Comp W-C [Nephro-Essie -] 0.8 mg PO DAILY 12/29/17 Zinc Sulfate 220 mg PO DAILY [facility]D for 10 days 12/29/17 Acetaminophen [Tylenol .Regular Strength -] 325 mg PO Q6H PRN tablet 01/02/18 Insulin (Novolog) [Novolog -] 5 units SQ TIDAC units 01/02/18 Isosorbide Mononitrate [Imdur -] 60 mg PO DAILY tab.sr.24h 01/02/18 Lisinopril [Prinivil] 5 mg PO DAILY tablet 01/02/18 Oxycodone HCl/Acetaminophen [Percocet 5-325 mg Tablet] 1 tab PO TID PRN #0 500s 01/02/18 Polyethylene Glycol 3350 [Miralax 119 gm Btl -] 17 gm PO BID bottle 01/02/18 Sennosides [Senna -] 2 tab PO HS tablet 01/02/18 Warfarin Na [Coumadin -] 3 mg PO DAILY@1800 tablet 01/02/18
[2018-01-02 13:26] LABS: INR 1.42 (0.83-1.09)
[2018-01-02] MEDS ORDERED: SODIUM CHLORIDE 250 ML IV PRN (14:22)
[2018-01-02] MEDS ORDERED: EPOETIN ALFA 10,000 UNIT/1 ML VIAL IVPUSH ONE (14:30)
[2018-01-02 15:16] LABS: BASO % 0.7 % (0-2.0); HEMATOCRIT 28.7 % (32.4-45.2); HEMOGLOBIN 9.4 GM/dL (10.7-15.3); LYMPH % 19.2 % (8-40); MCH 28.6 pg (25.7-33.7); MCHC 32.7 g/dl (32.0-36.0); MEAN CELL VOLUME 87.4 fl (80-96); MEAN PLT VOLUME 8.5 fl (7.5-11.1); MONO % 5.2 % (3.8-10.2); NEUT % 71.9 % (42.8-82.8); PLATELET COUNT 212 K/MM3 (134-434); RBC 3.28 M/mm3 (3.60-5.2); RDW 16.1 % (11.6-15.6); WHITE BLOOD COUNT 8.7 K/mm3 (4.0-10.0)
[2018-01-02 15:37] LABS: ANION GAP 9 MMOL/L (8-16); BLOOD UREA NITROGEN 30 mg/dL (7-18); CALCIUM 8.1 mg/dL (8.5-10.1); CHLORIDE 100 mmol/L (98-107); CO2 28 mmol/L (21-32); CREATININE 4.1 mg/dL (0.55-1.3); GLUCOSE,RANDOM 158 mg/dL (74-106); POTASSIUM 4.1 mmol/L (3.5-5.1); SODIUM 137 mmol/L (136-145)
[2018-01-02] MEDS ORDERED: WARFARIN NA 3 MG TABLET PO ONE (16:15)
[2018-01-02] MEDS: WARFARIN NA 3 MG TABLET PO SCH (17:00)
[2018-01-02] MEDS: ALBUMIN HUMAN 25% 12.5 GM/50 ML VIAL IVPB SCH ×4 (17:24→17:27)
[2018-01-02] MEDS: ACETAMINOPHEN 325 MG TABLET (FP) PO PRN (17:39)
[2018-01-02] MEDS: oxyCODONE HCL 5 MG TABLET PO PRN (19:47)
[2018-01-02] MEDS: SENNOSIDES 8.6MG TABLET (FP) PO SCH (22:19)
[2018-01-02] MEDS: ATORVASTATIN CA 10 MG TABLET (FP) PO SCH (22:19)
[2018-01-02] MEDS: INSULIN (LEVEMIR) 100 UNITS/ML UNITS SQ SCH (22:20)
[2018-01-03] MEDS: dilTIAZem HCL 50 MG/10 ML - 10 ML VIAL IVPUSH PRN ×2 (02:15→10:37)
[2018-01-03] MEDS: METOPROLOL TARTRATE 50 MG TABLET (FP) PO SCH ×3 (06:03→21:21)
[2018-01-03] MEDS: GABAPENTIN 100 MG CAPSULE (FP) PO SCH ×3 (06:03→21:21)
[2018-01-03] MEDS: INSULIN SLIDING SCALE (NOVOLOG) 1 VIAL SQ SCH ×3 (06:04→17:26)
[2018-01-03] MEDS: INSULIN (NOVOLOG) ASPART 100 UNITS/ML 10ML VIAL SQ SCH ×3 (06:04→17:26)
[2018-01-03] MEDS ORDERED: INSULIN (NOVOLOG) ASPART 100 UNITS/ML 10ML VIAL ONE (06:57)
[2018-01-03] MEDS ORDERED: INSULIN (LEVEMIR) 100 UNITS/ML UNITS SQ ONE (06:57)
[2018-01-03] MEDS ORDERED: SODIUM CHLORIDE 250 ML IV PRN (09:00)
[2018-01-03] MEDS ORDERED: PT OWN MED DRAWER 7, Y5N ONE ×3 (09:46→22:05)
[2018-01-03] MEDS: RANITIDINE HCL 150 MG TABLET (FP) PO SCH (09:50)
[2018-01-03] MEDS: LISINOPRIL 5 MG TABLET (FP) PO SCH (09:50)
[2018-01-03] MEDS: VITAMIN B COMP W-C 1 EA TABLET PO SCH (09:50)
[2018-01-03] MEDS: FOLIC ACID 1 MG TABLET (FP) PO SCH (09:50)
[2018-01-03] MEDS: BUDESONIDE/FORMETEROL FUMARATE 160/4.5 mcg INHALER IH SCH ×2 (09:50→22:07)
[2018-01-03] MEDS: ISOSORBIDE MONONITRATE 60 MG TAB.SR.24H (FP) PO SCH (09:50)
[2018-01-03] MEDS: POLYETHYLENE GLYCOL 3350 119 GM BTL PO SCH ×2 (09:51→21:22)
[2018-01-03] MEDS: ACETAMINOPHEN 325 MG TABLET (FP) PO PRN ×2 (10:46→16:39)
[2018-01-03] MEDS ORDERED: EPOETIN ALFA 2,000 UNIT/1 ML VIAL IVPUSH ONE (12:28)
[2018-01-03 12:36] LABS: INR 1.38 (0.83-1.09); PROTHROMBIN TIME (PATIENT) 15.6 SEC (9.7-13.0)
[2018-01-03] MEDS: IRON POLYSACCHARIDES 150 MG CAPSULE PO SCH (13:03)
--- NOTE | 2018-01-03 13:32 | PN ---
Progress Note (short form) - Note Progress Note: has been having frequent episodes of rapid Afib No chest pain or palpitations, but she admits she can not catch her breath Vital Signs - 24 hr 01/02/18 01/02/18 01/02/18 13:45 14:05 14:10 Temperature 98.0 F 98.4 F Pulse Rate 82 68 68 Respiratory 22 H 18 18 Rate Blood Pressure 112/89 88/42 L 91/40 L O2 Sat by Pulse Oximetry (%) 01/02/18 01/02/18 01/02/18 14:40 15:10 15:40 Temperature Pulse Rate 66 70 72 Respiratory 18 18 18 Rate Blood Pressure 90/35 L 96/48 L 87/62 L O2 Sat by Pulse Oximetry (%) 01/02/18 01/02/18 01/02/18 16:10 16:40 17:10 Temperature Pulse Rate 70 74 72 Respiratory 18 18 18 Rate Blood Pressure 90/65 98/54 L 108/58 L O2 Sat by Pulse Oximetry (%) 01/02/18 01/02/18 01/02/18 17:40 21:00 22:12 Temperature 98.1 F Pulse Rate 70 77 Respiratory 18 20 20 Rate Blood Pressure 110/64 124/73 O2 Sat by Pulse 100 Oximetry (%) 01/03/18 01/03/18 01/03/18 01:40 02:15 06:01 Temperature 98.3 F Pulse Rate 155 H 157 H 71 Respiratory 20 20 20 Rate Blood Pressure 113/66 115/59 L 115/60 O2 Sat by Pulse Oximetry (%) 01/03/18 09:00 Temperature 98.2 F Pulse Rate 97 H Respiratory 20 Rate Blood Pressure 134/62 O2 Sat by Pulse 95 Oximetry (%) Current Medications Generic Name Dose Route Start Last Admin Trade Name Freq PRN Reason Stop Dose Admin Acetaminophen 325 mg 12/29/17 14:56 01/03/18 10:46 Tylenol - PO 325 mg Q6H PRN Administration PAIN 6-10 Atorvastatin Calcium 10 mg 12/29/17 22:00 01/02/18 22:19 Lipitor - PO 10 mg HS [facility] Administration Budesonide/Formoterol Fumarate 2 puff 12/29/17 22:00 01/03/18 09:50 Symbicort 160/4.5mcg - IH 2 puff BID [facility] Administration Diltiazem HCl 10 mg 01/01/18 04:52 01/03/18 10:37 Cardizem Injection - IVPUSH 10 mg Q4H PRN Administration HR > 110 Folic Acid 1 mg 12/30/17 10:00 01/03/18 09:50 Folic Acid - PO 1 mg DAILY [facility] Administration Gabapentin 100 mg 12/29/17 14:51 01/03/18 13:03 Neurontin - PO 100 mg TID [facility] Administration Sodium Chloride 250 mls @ 3,000 mls/hr 01/02/18 14:22 Normal Saline - IV 01/03/18 14:21 PRN PRN Hypotension during Dialysis Insulin Aspart 5 units 12/29/17 16:30 01/03/18 12:17 Novolog Vial SQ 5 units TIDAC [facility] Administration Insulin Aspart 1 vial 12/29/17 16:30 01/03/18 12:19 Novolog Vial Sliding Scale - SQ 4 units TIDAC [facility] Administration Protocol Insulin Detemir 33 units 12/29/17 22:00 01/02/18 22:20 Levemir Vial SQ 33 units HS [facility] Administration Isosorbide Mononitrate 60 mg 12/30/17 10:00 01/03/18 09:50 Imdur - PO 60 mg DAILY [facility] Administration Lisinopril 5 mg 01/02/18 10:00 01/03/18 09:50 Prinivil PO 5 mg DAILY [facility] Administration Metoprolol Tartrate 50 mg 01/01/18 06:00 01/03/18 13:03 Lopressor - PO 50 mg TID [facility] Administration Multivit/Ca Carb/B Cmplx/FA/Prenat 1 tablet 12/30/17 10:00 01/03/18 09:50 Nephro-Essie - PO 1 tablet DAILY [facility] Administration Oxycodone HCl 5 mg 01/02/18 12:24 01/02/18 19:47 Roxicodone - PO 5 mg Q6H PRN Administration PAIN SCALE 6 -10 Polyethylene Glycol 17 gm 01/01/18 22:00 01/03/18 09:51 Miralax (For Daily Use) - PO 17 gm BID [facility] Administration Polysaccharide Iron Complex 150 mg 12/30/17 10:00 01/03/18 13:03 Niferex-150 - PO 150 mg DAILY [facility] Administration Ranitidine HCl 150 mg 12/30/17 10:00 01/03/18 09:50 Zantac - PO 150 mg DAILY [facility] Administration Senna 2 tab 12/31/17 22:00 01/02/18 22:19 Senna - PO 2 tab HS [facility] Administration Silver Sulfadiazine 1 applic 12/29/17 22:00 01/02/18 22:22 Silvadene - TP 1 applic BID [facility] Administration Simethicone 80 mg 12/29/17 14:00 12/31/17 07:24 Mylicon - PO 80 mg Q6H PRN Administration DYSPEPSIA Warfarin Sodium 5 mg 01/03/18 18:00 Coumadin - PO DAILY@1800 [facility] Laboratory Results - last 24 hr 01/02/18 01/02/18 01/02/18 12:15 14:10 14:10 WBC 8.7 RBC 3.28 L Hgb 9.4 L Hct 28.7 L MCV 87.4 MCH 28.6 MCHC 32.7 RDW 16.1 H Plt Count 212 MPV 8.5 Absolute Neuts (auto) 6.2 Neutrophils % 71.9 Lymphocytes % 19.2 Monocytes % 5.2 Eosinophils % 3.0 Basophils % 0.7 Nucleated RBC % 0 PT with INR 16.00 H INR 1.42 H Sodium 137 Potassium 4.1 Chloride 100 Carbon Dioxide 28 Anion Gap 9 BUN 30 H Creatinine 4.1 H Creat Clearance w eGFR 10.70 POC Glucometer Random Glucose 158 H Calcium 8.1 L 01/02/18 01/02/18 01/03/18 16:51 22:17 05:50 WBC RBC Hgb Hct MCV MCH MCHC RDW Plt Count MPV Absolute Neuts (auto) Neutrophils % Lymphocytes % Monocytes % Eosinophils % Basophils % Nucleated RBC % PT with INR INR Sodium Potassium Chloride Carbon Dioxide Anion Gap BUN Creatinine Creat Clearance w eGFR POC Glucometer 133 183 161 Random Glucose Calcium 01/03/18 01/03/18 11:49 11:50 WBC RBC Hgb Hct MCV MCH MCHC RDW Plt Count MPV Absolute Neuts (auto) Neutrophils % Lymphocytes % Monocytes % Eosinophils % Basophils % Nucleated RBC % PT with INR 15.60 H INR 1.38 H Sodium Potassium Chloride Carbon Dioxide Anion Gap BUN Creatinine Creat Clearance w eGFR POC Glucometer 213 Random Glucose Calcium S1 S2 Irregular, rapid Lungs decreased Abd- soft, obese, NT , BS+ Edema decreased PLAN- Start Heparin Gtt-- INR is subtherapeutic increase coumadin unable to do imaging to R/O PE as she can not fit into CT scan rate control with Cardizem and Metoprolol dialysis as per renal Hold discharge Problem List - Problems (1) End stage renal disease on dialysis Code(s): N18.6 - END STAGE RENAL DISEASE; Z99.2 - DEPENDENCE ON RENAL DIALYSIS (2) Sepsis Code(s): A41.9 - SEPSIS, UNSPECIFIED ORGANISM (3) Afib Code(s): I48.91 - UNSPECIFIED ATRIAL FIBRILLATION Qualifiers: Atrial fibrillation type: persistent Qualified Code(s): I48.1 - Persistent atrial fibrillation (4) CHF (congestive heart failure) Code(s): I50.9 - HEART FAILURE, UNSPECIFIED (5) Diabetes mellitus Code(s): E11.9 - TYPE 2 DIABETES MELLITUS WITHOUT COMPLICATIONS Qualifiers: Diabetes mellitus type: type 2 Diabetes mellitus complication status: with kidney complications Diabetes mellitus complication detail: with chronic kidney disease Chronic kidney disease stage: on chronic dialysis
[2018-01-03] MEDS: SILVER SULFADIAZINE 1% TOP CREAM 400 GM JAR TP SCH ×2 (13:54→22:07)
--- NOTE | 2018-01-03 15:59 | PN ---
Progress Note, Physician History of Present Illness: Pt seen and examined at bedside. Discharge was held secondary to tachycardia and dyspnea. She is awake and alert. - Current Medication List Current Medications: Active Medications Acetaminophen (Tylenol -) 325 mg PO Q6H PRN PRN Reason: PAIN 6-10 Last Admin: 01/03/18 10:46 Dose: 325 mg Atorvastatin Calcium (Lipitor -) 10 mg PO HS [facility] Last Admin: 01/02/18 22:19 Dose: 10 mg Budesonide/Formoterol Fumarate (Symbicort 160/4.5mcg -) 2 puff IH BID [facility] Last Admin: 01/03/18 09:50 Dose: 2 puff Diltiazem HCl (Cardizem Injection -) 10 mg IVPUSH Q4H PRN PRN Reason: HR > 110 Last Admin: 01/03/18 10:37 Dose: 10 mg Folic Acid (Folic Acid -) 1 mg PO DAILY [facility] Last Admin: 01/03/18 09:50 Dose: 1 mg Gabapentin (Neurontin -) 100 mg PO TID [facility] Last Admin: 01/03/18 13:03 Dose: 100 mg Heparin Sodium (Porcine) (Heparin -) 1,000 unit IVPUSH PRN PRN PRN Reason: Heparin Heparin Sodium (Porcine) (Heparin -) 5,000 unit IVPUSH PRN PRN PRN Reason: Heparin HEPARIN SOD,PORK IN 0.45% NACL (Heparin-1/2ns 25,000 Units/500) 25,000 units in 500 mls @ 20 mls/hr IVPB TITR [facility]; Protocol Insulin Aspart (Novolog Vial) 5 units SQ TIDAC [facility] Last Admin: 01/03/18 12:17 Dose: 5 units Insulin Aspart (Novolog Vial Sliding Scale -) 1 vial SQ TIDAC [facility]; Protocol Last Admin: 01/03/18 12:19 Dose: 4 units Insulin Detemir (Levemir Vial) 33 units SQ HS [facility] Last Admin: 01/02/18 22:20 Dose: 33 units Isosorbide Mononitrate (Imdur -) 60 mg PO DAILY [facility] Last Admin: 01/03/18 09:50 Dose: 60 mg Lisinopril (Prinivil) 5 mg PO DAILY [facility] Last Admin: 01/03/18 09:50 Dose: 5 mg Metoprolol Tartrate (Lopressor -) 50 mg PO TID [facility] Last Admin: 01/03/18 13:03 Dose: 50 mg Multivit/Ca Carb/B Cmplx/FA/Prenat (Nephro-Essie -) 1 tablet PO DAILY [facility] Last Admin: 01/03/18 09:50 Dose: 1 tablet Oxycodone HCl (Roxicodone -) 5 mg PO Q6H PRN PRN Reason: PAIN SCALE 6 -10 Last Admin: 01/02/18 19:47 Dose: 5 mg Polyethylene Glycol (Miralax (For Daily Use) -) 17 gm PO BID [facility] Last Admin: 01/03/18 09:51 Dose: 17 gm Polysaccharide Iron Complex (Niferex-150 -) 150 mg PO DAILY [facility] Last Admin: 01/03/18 13:03 Dose: 150 mg Ranitidine HCl (Zantac -) 150 mg PO DAILY [facility] Last Admin: 01/03/18 09:50 Dose: 150 mg Senna (Senna -) 2 tab PO HS [facility] Last Admin: 01/02/18 22:19 Dose: 2 tab Silver Sulfadiazine (Silvadene -) 1 applic TP BID [facility] Last Admin: 01/03/18 13:54 Dose: 1 applic Simethicone (Mylicon -) 80 mg PO Q6H PRN PRN Reason: DYSPEPSIA Last Admin: 12/31/17 07:24 Dose: 80 mg Warfarin Sodium (Coumadin -) 5 mg PO DAILY@1800 [facility] - Objective Vital Signs: Vital Signs Temperature 98.2 F 01/03/18 09:00 Pulse Rate 97 H 01/03/18 09:00 Respiratory Rate 20 01/03/18 09:00 Blood Pressure 134/62 01/03/18 09:00 O2 Sat by Pulse Oximetry (%) 95 01/03/18 09:00 Constitutional: Yes: Calm Eyes: Yes: Conjunctiva Clear HENT: Yes: Atraumatic Cardiovascular: Yes: S1, S2 Respiratory: Yes: On Nasal O2 Gastrointestinal: Yes: Soft, Abdomen, Obese Genitourinary: Yes: Incontinence Musculoskeletal: Yes: WNL Edema: Yes Edema: LLE: 1+, RLE: 1+ Neurological: Yes: Oriented Psychiatric: Yes: Oriented Labs: CBC, BMP 01/02/18 14:10 01/02/18 14:10 INR, PTT INR 1.38 (0.83-1.09) H 01/03/18 11:50 Problem List - Problems (1) End stage renal disease on dialysis Code(s): N18.6 - END STAGE RENAL DISEASE; Z99.2 - DEPENDENCE ON RENAL DIALYSIS Assessment/Plan Current Medications Generic Name Dose Route Start Last Admin Trade Name Freq PRN Reason Stop Dose Admin Acetaminophen 325 mg 12/29/17 14:56 01/03/18 10:46 Tylenol - PO 325 mg Q6H PRN Administration PAIN 6-10 Atorvastatin Calcium 10 mg 12/29/17 22:00 01/02/18 22:19 Lipitor - PO 10 mg HS [facility] Administration Budesonide/Formoterol Fumarate 2 puff 12/29/17 22:00 01/03/18 09:50 Symbicort 160/4.5mcg - IH 2 puff BID [facility] Administration Diltiazem HCl 10 mg 01/01/18 04:52 01/03/18 10:37 Cardizem Injection - IVPUSH 10 mg Q4H PRN Administration HR > 110 Folic Acid 1 mg 12/30/17 10:00 01/03/18 09:50 Folic Acid - PO 1 mg DAILY [facility] Administration Gabapentin 100 mg 12/29/17 14:51 01/03/18 13:03 Neurontin - PO 100 mg TID [facility] Administration Heparin Sodium (Porcine) 1,000 unit 01/03/18 13:32 Heparin - IVPUSH PRN PRN Heparin Heparin Sodium (Porcine) 5,000 unit 01/03/18 13:32 Heparin - IVPUSH PRN PRN Heparin HEPARIN SOD,PORK IN 0.45% NACL 25,000 units in 500 mls @ 20 mls/hr 01/03/18 13 :45 Heparin-1/2ns 25,000 Units/500 IVPB TITR [facility] Protocol 1,000 UNITS/HR Insulin Aspart 5 units 12/29/17 16:30 01/03/18 12:17 Novolog Vial SQ 5 units TIDAC [facility] Administration Insulin Aspart 1 vial 12/29/17 16:30 01/03/18 12:19 Novolog Vial Sliding Scale - SQ 4 units TIDAC [facility] Administration Protocol Insulin Detemir 33 units 12/29/17 22:00 01/02/18 22:20 Levemir Vial SQ 33 units HS [facility] Administration Isosorbide Mononitrate 60 mg 12/30/17 10:00 01/03/18 09:50 Imdur - PO 60 mg DAILY [facility] Administration Lisinopril 5 mg 01/02/18 10:00 01/03/18 09:50 Prinivil PO 5 mg DAILY [facility] Administration Metoprolol Tartrate 50 mg 01/01/18 06:00 01/03/18 13:03 Lopressor - PO 50 mg TID [facility] Administration Multivit/Ca Carb/B Cmplx/FA/Prenat 1 tablet 12/30/17 10:00 01/03/18 09:50 Nephro-Essie - PO 1 tablet DAILY [facility] Administration Oxycodone HCl 5 mg 01/02/18 12:24 01/02/18 19:47 Roxicodone - PO 5 mg Q6H PRN Administration PAIN SCALE 6 -10 Polyethylene Glycol 17 gm 01/01/18 22:00 01/03/18 09:51 Miralax (For Daily Use) - PO 17 gm BID [facility] Administration Polysaccharide Iron Complex 150 mg 12/30/17 10:00 01/03/18 13:03 Niferex-150 - PO 150 mg DAILY [facility] Administration Ranitidine HCl 150 mg 12/30/17 10:00 01/03/18 09:50 Zantac - PO 150 mg DAILY [facility] Administration Senna 2 tab 12/31/17 22:00 01/02/18 22:19 Senna - PO 2 tab HS [facility] Administration Silver Sulfadiazine 1 applic 12/29/17 22:00 01/03/18 13:54 Silvadene - TP 1 applic BID [facility] Administration Simethicone 80 mg 12/29/17 14:00 12/31/17 07:24 Mylicon - PO 80 mg Q6H PRN Administration DYSPEPSIA Warfarin Sodium 5 mg 01/03/18 18:00 Coumadin - PO DAILY@1800 [facility] Impression 1. ESRD 2. obesity 3. hyperlipidemia 4. HTN 5. DM 6. CHF 7. CAD 8. anemia 9. a-fib 10. iron deficiency 11. r/o TIA 12. sepsis Plan - HD in am - orders written - pt started on heparin drip - bowel regimen for constipation - will follow Dr Capps
[2018-01-03] MEDS: HEPARIN SOD,PORK IN 0.45% NACL 25,000 UNITS/500 ML INFUS.BAG IVPB SCH ×2 (16:02→20:20)
[2018-01-03] MEDS: oxyCODONE HCL 5 MG TABLET PO PRN ×2 (16:40→22:09)
[2018-01-03] MEDS: WARFARIN NA 5 MG TABLET (UD) PO SCH (17:25)
--- NOTE | 2018-01-03 19:12 | PN ---
Progress Note (short form) - Note Progress Note: Chief Complaint: Events noted, notes reviewed, denies any chest pain but reports persistence of dyspnea/shortness of breath, recurrent paroxysmal atrial flutter was noted with periods of rapid ventricular response and intermittent hypotension/symptomatic History of Present Illness: Seen and examined on telemetry. Events noted, notes reviewed, denies any chest pain but reports persistence of dyspnea/shortness of breath, recurrent paroxysmal atrial flutter was noted with periods of rapid ventricular response and intermittent hypotension/symptomatic Sub-therapeutic INR was noted, initiated on heparin therapy Medications: Current Medications Acetaminophen (Tylenol -) 325 mg PO Q6H PRN PRN Reason: PAIN 6-10 Last Admin: 01/03/18 16:39 Dose: 325 mg Atorvastatin Calcium (Lipitor -) [address] [facility] Last Admin: 01/02/18 22:19 Dose: 10 mg Budesonide/Formoterol Fumarate (Symbicort 160/4.5mcg -) [address] [facility] Last Admin: 01/03/18 09:50 Dose: 2 puff Diltiazem HCl (Cardizem Injection -) 10 mg IVPUSH Q4H PRN PRN Reason: HR > 110 Last Admin: 01/03/18 10:37 Dose: 10 mg Epoetin [place] (Epogen -) 10,000 unit IVPUSH ONCE ONE Stop: 01/04/18 16:01 Folic Acid (Folic Acid -) [address] [facility] Last Admin: 01/03/18 09:50 Dose: 1 mg Gabapentin (Neurontin -) [address] [facility] Last Admin: 01/03/18 13:03 Dose: 100 mg Heparin Sodium (Porcine) (Heparin -) 1,000 unit IVPUSH PRN PRN PRN Reason: Heparin Heparin Sodium (Porcine) (Heparin -) 5,000 unit IVPUSH PRN PRN PRN Reason: Heparin HEPARIN SOD,PORK IN 0.45% NACL (Heparin-1/2ns 25,000 Units/500) 25,000 units in 500 mls @ 20 mls/hr IVPB TITR [facility]; Protocol Last Admin: 01/03/18 16:02 Dose: 1,000 units/hr, 20 mls/hr Sodium Chloride (Normal Saline -) 250 mls @ 3,000 mls/hr IV PRN PRN PRN Reason: Hypotension during Dialysis Stop: 01/04/18 16:00 Insulin Aspart (Novolog Vial) [address] [facility] Last Admin: 01/03/18 17:26 Dose: 5 units Insulin Aspart (Novolog Vial Sliding Scale -) [address] [facility]; Protocol Last Admin: 01/03/18 17:26 Dose: 2 units Insulin Detemir (Levemir Vial) 33 units SQ [facility] Last Admin: 01/02/18 22:20 Dose: 33 units Isosorbide Mononitrate (Imdur -) [address] [facility] Last Admin: 01/03/18 09:50 Dose: 60 mg Lisinopril (Prinivil) [address] [facility] Last Admin: 01/03/18 09:50 Dose: 5 mg Metoprolol Tartrate (Lopressor -) [address] [facility] Last Admin: 01/03/18 13:03 Dose: 50 mg Multivit/Ca Carb/B Cmplx/FA/Prenat (Nephro-Essie -) [address] [facility] Last Admin: 01/03/18 09:50 Dose: 1 tablet Oxycodone HCl (Roxicodone -) 5 mg PO Q6H PRN PRN Reason: PAIN SCALE 6 -10 Last Admin: 01/03/18 16:40 Dose: 5 mg Polyethylene Glycol (Miralax (For Daily Use) -) [address] [facility] Last Admin: 01/03/18 09:51 Dose: 17 gm Polysaccharide Iron Complex (Niferex-150 -) [address] [facility] Last Admin: 01/03/18 13:03 Dose: 150 mg Ranitidine HCl (Zantac -) [address] [facility] Last Admin: 01/03/18 09:50 Dose: 150 mg Senna (Senna -) 2 tab PO [facility] Last Admin: 01/02/18 22:19 Dose: 2 tab Silver Sulfadiazine (Silvadene -) [address] [facility] Last Admin: 01/03/18 13:54 Dose: 1 applic Simethicone (Mylicon -) 80 mg PO Q6H PRN PRN Reason: DYSPEPSIA Last Admin: 12/31/17 07:24 Dose: 80 mg Warfarin Sodium (Coumadin -) 5 mg PO DAILY@1800 [facility] Last Admin: 01/03/18 17:25 Dose: 5 mg Review of Systems Review Of Systems: CARD: as noted above RESP: denies: cough or sputum production ABD: denies: nausea, vomiting, diarrhea, melena, hematemesis or abdominal discomfort MUSC: denies: joint pains NEURO: denies: headache, lightheadedness Vital Signs: Last Vital Signs Temp Pulse Resp BP Pulse Ox 97.2 F L 69 20 140/68 95 01/03/18 18:00 01/03/18 18:00 01/03/18 18:00 01/03/18 18:00 01/03/18 09:00 Intake & Output 12/31/17 01/01/18 01/02/18 01/03/18 23:59 23:59 23:59 23:59 Intake Total 100 120 100 220 Balance 100 120 100 220 Constitutional: No Distress, Calm Neck: Supple Negative JVD No Bruit Respiratory: Diminished at the Bases Cardiovascular: S1 S2 Regular rate and rhythm Grade 1-2/6 FAWN Gastrointestinal: Soft Benign Normal Bowel Sounds Ext: Edema Bilaterally Labs: CBC, BMP 01/02/18 14:10 01/02/18 14:10 INR, PTT INR 1.38 (0.83-1.09) H 01/03/18 11:50 Assessment/Plan ASSESSMENT: 1. Probable sepsis syndrome source of which is to be determined 2. Paroxysmal atrial fibrillation/atrial flutter with [id number] of 3-4 on Coumadin therapy with sub-therapeutic INR 3. CAD angina pectoris, stable 4. Diastolic LV dysfunction with class 0-I NYHA classification LV failure, clinically compensated/euvolemic 5. HTN with intermittent symptomatic hypotension 6. Hyperlipidemia 7. End-stage renal disease on HD 8. Morbid obesity with OSAS 9. Anemia PLAN: 1. Continue Coumadin as per INR, and agree with Heparin utilization pending therapeutic INR 2. Continue Lopressor (titrate dosage as needed and tolerated) hemodynamics permitting 3. Continue Lisinopril therapy 4. Recommend discontinuation of Imdur therapy considering the above-noted intermittent hypotension 5. Continue Lipitor 6. If the above-noted arrhythmia/atrial fibrillation/atrial flutter is persistent consideration for initiation of Amiodarone therapy unless it is absolutely contraindicated 7. Hemodialysis as per the renal service 8. Antibiotics as per the primary team Nevin Vasquez MD
[2018-01-03] MEDS: HEPARIN NA (PORCINE) 5,000 UNITS/ML 1ML VIAL IVPUSH PRN (20:10)
[2018-01-03] MEDS: SENNOSIDES 8.6MG TABLET (FP) PO SCH (21:21)
[2018-01-03] MEDS: INSULIN (LEVEMIR) 100 UNITS/ML UNITS SQ SCH (21:22)
[2018-01-03] MEDS: ATORVASTATIN CA 10 MG TABLET (FP) PO SCH (21:22)
[2018-01-04] MEDS: dilTIAZem HCL 50 MG/10 ML - 10 ML VIAL IVPUSH PRN (01:15)
[2018-01-04] MEDS: METOPROLOL TARTRATE 50 MG TABLET (FP) PO SCH ×3 (06:05→21:15)
[2018-01-04] MEDS: GABAPENTIN 100 MG CAPSULE (FP) PO SCH ×3 (06:05→21:15)
[2018-01-04] MEDS: INSULIN SLIDING SCALE (NOVOLOG) 1 VIAL SQ SCH ×3 (06:13→16:39)
[2018-01-04] MEDS: INSULIN (NOVOLOG) ASPART 100 UNITS/ML 10ML VIAL SQ SCH ×3 (06:13→16:39)
[2018-01-04 07:40] LABS: INR 1.49 (0.83-1.09); PROTHROMBIN TIME (PATIENT) 16.8 SEC (9.7-13.0)
[2018-01-04 08:10] LABS: HEMATOCRIT 27.6 % (32.4-45.2); HEMOGLOBIN 8.8 GM/dL (10.7-15.3); MCH 28.2 pg (25.7-33.7); MCHC 31.7 g/dl (32.0-36.0); MEAN PLT VOLUME 8.6 fl (7.5-11.1); PLATELET COUNT 197 K/MM3 (134-434); RDW 16.5 % (11.6-15.6); WHITE BLOOD COUNT 8.9 K/mm3 (4.0-10.0)
[2018-01-04] MEDS ORDERED: EPOETIN ALFA 10,000 UNIT/1 ML VIAL IVPUSH ONE (09:00)
[2018-01-04 09:50] LABS: ALBUMIN 2.6 g/dl (3.4-5.0); ALK PHOS 53 U/L (45-117); ANION GAP 7 MMOL/L (8-16); BILIRUBIN,TOTAL 0.2 mg/dL (0.2-1); BLOOD UREA NITROGEN 26 mg/dL (7-18); CALCIUM 8.5 mg/dL (8.5-10.1); CHLORIDE 102 mmol/L (98-107); CO2 28 mmol/L (21-32); CREATININE 3.8 mg/dL (0.55-1.3); GLUCOSE,RANDOM 147 mg/dL (74-106); POTASSIUM 4.4 mmol/L (3.5-5.1); SGOT/AST 11 U/L (15-37); SGPT/ALT 14 U/L (13-61); SODIUM 138 mmol/L (136-145); TOT PROT 5.6 g/dl (6.4-8.2)
--- NOTE | 2018-01-04 10:33 | PN ---
Progress Note (short form) - Note Progress Note: received cardizem IVpush last night- since then no episodes of Rapid Afib Undergoing dialysis now, feels fine no Chest pain or SOB on heparin GTT Vital Signs - 24 hr 01/03/18 01/03/18 01/03/18 16:21 18:00 21:00 Temperature 99.5 F 97.2 F L Pulse Rate 86 69 Respiratory 20 20 Rate Blood Pressure 116/64 140/68 O2 Sat by Pulse 98 Oximetry (%) 01/04/18 01/04/18 01/04/18 01:15 06:33 07:25 Temperature 97.7 F 97.8 F Pulse Rate 144 H 75 60 Respiratory 22 H 20 18 Rate Blood Pressure 110/57 L 121/74 111/45 L O2 Sat by Pulse Oximetry (%) 01/04/18 01/04/18 01/04/18 07:30 08:00 08:30 Temperature Pulse Rate 62 67 65 Respiratory 18 18 18 Rate Blood Pressure 95/46 L 85/40 L 126/95 O2 Sat by Pulse Oximetry (%) 01/04/18 01/04/18 01/04/18 09:00 09:30 10:00 Temperature Pulse Rate 73 57 L 65 Respiratory 18 18 18 Rate Blood Pressure 118/69 124/54 L 132/74 O2 Sat by Pulse Oximetry (%) 01/04/18 01/04/18 10:30 11:00 Temperature Pulse Rate 60 68 Respiratory 18 18 Rate Blood Pressure 120/72 124/70 O2 Sat by Pulse Oximetry (%) Current Medications Generic Name Dose Route Start Last Admin Trade Name Freq PRN Reason Stop Dose Admin Acetaminophen 325 mg 12/29/17 14:56 01/03/18 16:39 Tylenol - PO 325 mg Q6H PRN Administration PAIN 6-10 Atorvastatin Calcium 10 mg 12/29/17 22:00 01/03/18 21:22 Lipitor - PO 10 mg HS [facility] Administration Budesonide/Formoterol Fumarate 2 puff 12/29/17 22:00 01/03/18 22:07 Symbicort 160/4.5mcg - IH 2 puff BID [facility] Administration Diltiazem HCl 10 mg 01/01/18 04:52 01/04/18 01:15 Cardizem Injection - IVPUSH 10 mg Q4H PRN Administration HR > 110 Folic Acid 1 mg 12/30/17 10:00 01/03/18 09:50 Folic Acid - PO 1 mg DAILY [facility] Administration Gabapentin 100 mg 12/29/17 14:51 01/04/18 06:05 Neurontin - PO 100 mg TID [facility] Administration Heparin Sodium (Porcine) 1,000 unit 01/03/18 13:32 Heparin - IVPUSH PRN PRN Heparin Heparin Sodium (Porcine) 5,000 unit 01/03/18 13:32 01/03/18 20:10 Heparin - IVPUSH 5,000 unit PRN PRN Administration Heparin HEPARIN SOD,PORK IN 0.45% NACL 25,000 units in 500 mls @ 20 mls/hr 01/03/18 13 :45 01/03/18 20:20 Heparin-1/2ns 25,000 Units/500 IVPB 1,150 units/hr TITR [facility] 23 mls/hr Administration Protocol 1,000 UNITS/HR Insulin Aspart 5 units 12/29/17 16:30 01/04/18 06:13 Novolog Vial SQ 5 units TIDAC [facility] Administration Insulin Aspart 1 vial 12/29/17 16:30 01/04/18 06:13 Novolog Vial Sliding Scale - SQ 2 units [facility]AC [facility] Administration Protocol Insulin Detemir 33 units 12/29/17 22:00 01/03/18 21:22 Levemir Vial SQ 33 units HS [facility] Administration Isosorbide Mononitrate 60 mg 12/30/17 10:00 01/03/18 09:50 Imdur - PO 60 mg DAILY [facility] Administration Lisinopril 5 mg 01/02/18 10:00 01/03/18 09:50 Prinivil PO 5 mg DAILY [facility] Administration Metoprolol Tartrate 50 mg 01/01/18 06:00 01/04/18 06:05 Lopressor - PO 50 mg TID [facility] Administration Multivit/Ca Carb/B Cmplx/FA/Prenat 1 tablet 12/30/17 10:00 01/03/18 09:50 Nephro-Essie - PO 1 tablet DAILY [facility] Administration Oxycodone HCl 5 mg 01/02/18 12:24 01/03/18 22:09 Roxicodone - PO 5 mg Q6H PRN Administration PAIN SCALE 6 -10 Polyethylene Glycol 17 gm 01/01/18 22:00 01/03/18 21:22 Miralax (For Daily Use) - PO 17 gm BID [facility] Administration Polysaccharide Iron Complex 150 mg 12/30/17 10:00 01/03/18 13:03 Niferex-150 - PO 150 mg DAILY [facility] Administration Ranitidine HCl 150 mg 12/30/17 10:00 01/03/18 09:50 Zantac - PO 150 mg DAILY [facility] Administration Senna 2 tab 12/31/17 22:00 01/03/18 21:21 Senna - PO 2 tab HS [facility] Administration Silver Sulfadiazine 1 applic 12/29/17 22:00 01/03/18 22:07 Silvadene - TP 1 applic BID [facility] Administration Simethicone 80 mg 12/29/17 14:00 12/31/17 07:24 Mylicon - PO 80 mg Q6H PRN Administration DYSPEPSIA Warfarin Sodium 5 mg 01/03/18 18:00 01/03/18 17:25 Coumadin - PO 5 mg DAILY@1800 [facility] Administration Laboratory Results - last 24 hr 01/03/18 01/03/18 01/03/18 11:49 11:50 15:55 WBC RBC Hgb Hct MCV MCH MCHC RDW Plt Count MPV PT with INR 15.60 H INR 1.38 H PTT (Actin FS) Sodium Potassium Chloride Carbon Dioxide Anion Gap BUN Creatinine Creat Clearance w eGFR POC Glucometer 213 167 Random Glucose Calcium Total Bilirubin AST ALT Alkaline Phosphatase Total Protein Albumin 01/03/18 01/03/18 01/04/18 18:33 21:20 06:00 WBC RBC Hgb Hct MCV MCH MCHC RDW Plt Count MPV PT with INR 16.80 H INR 1.49 H PTT (Actin FS) 21.8 L Sodium Potassium Chloride Carbon Dioxide Anion Gap BUN Creatinine Creat Clearance w eGFR POC Glucometer 190 Random Glucose Calcium Total Bilirubin AST ALT Alkaline Phosphatase Total Protein Albumin 01/04/18 01/04/18 01/04/18 06:00 06:00 06:00 WBC 8.9 RBC 3.10 L Hgb 8.8 L Hct 27.6 L MCV 89.0 MCH 28.2 MCHC 31.7 L RDW 16.5 H Plt Count 197 MPV 8.6 PT with INR INR PTT (Actin FS) 48.8 H Sodium 138 Potassium 4.4 Chloride 102 Carbon Dioxide 28 Anion Gap 7 L BUN 26 H Creatinine 3.8 H Creat Clearance w eGFR 11.68 POC Glucometer Random Glucose 147 H Calcium 8.5 Total Bilirubin 0.2 AST 11 L ALT 14 Alkaline Phosphatase 53 Total Protein 5.6 L Albumin 2.6 L 01/04/18 06:08 WBC RBC Hgb Hct MCV MCH MCHC RDW Plt Count MPV PT with INR INR PTT (Actin FS) Sodium Potassium Chloride Carbon Dioxide Anion Gap BUN Creatinine Creat Clearance w eGFR POC Glucometer 183 Random Glucose Calcium Total Bilirubin AST ALT Alkaline Phosphatase Total Protein Albumin S1 S2 Irregular Lungs decreased Abd- soft, obese, NT , BS+ Edema decreased PLAN- on Heparin Gtt-- INR is subtherapeutic continue with current dose coumadin unable to do imaging to R/O PE as she can not fit into CT scan rate is controlled check bladder scan- pt states she feels pelvic pressure and has not been urinating- I explained that it is probably due to dialysis dialysis as per renal Problem List - Problems (1) End stage renal disease on dialysis Code(s): N18.6 - END STAGE RENAL DISEASE; Z99.2 - DEPENDENCE ON RENAL DIALYSIS (2) Sepsis Code(s): A41.9 - SEPSIS, UNSPECIFIED ORGANISM (3) Afib Code(s): I48.91 - UNSPECIFIED ATRIAL FIBRILLATION Qualifiers: Atrial fibrillation type: persistent Qualified Code(s): I48.1 - Persistent atrial fibrillation (4) CHF (congestive heart failure) Code(s): I50.9 - HEART FAILURE, UNSPECIFIED (5) Diabetes mellitus Code(s): E11.9 - TYPE 2 DIABETES MELLITUS WITHOUT COMPLICATIONS Qualifiers: Diabetes mellitus type: type 2 Diabetes mellitus complication status: with kidney complications Diabetes mellitus complication detail: with chronic kidney disease Chronic kidney disease stage: on chronic dialysis
[2018-01-04] MEDS ORDERED: PT OWN MED DRAWER 7, Y5N ONE ×2 (10:38→11:24)
[2018-01-04] MEDS: LISINOPRIL 5 MG TABLET (FP) PO SCH (11:14)
[2018-01-04] MEDS: RANITIDINE HCL 150 MG TABLET (FP) PO SCH (11:14)
[2018-01-04] MEDS: FOLIC ACID 1 MG TABLET (FP) PO SCH (11:14)
[2018-01-04] MEDS: IRON POLYSACCHARIDES 150 MG CAPSULE PO SCH (11:14)
[2018-01-04] MEDS: POLYETHYLENE GLYCOL 3350 119 GM BTL PO SCH ×2 (11:15→21:16)
[2018-01-04] MEDS: VITAMIN B COMP W-C 1 EA TABLET PO SCH (11:15)
[2018-01-04] MEDS: BUDESONIDE/FORMETEROL FUMARATE 160/4.5 mcg INHALER IH SCH ×2 (11:15→21:16)
[2018-01-04] MEDS: ISOSORBIDE MONONITRATE 60 MG TAB.SR.24H (FP) PO SCH (11:15)
[2018-01-04] MEDS: HEPARIN NA (PORCINE) 5,000 UNITS/ML 1ML VIAL IVPUSH PRN ×3 (11:16→22:52)
--- NOTE | 2018-01-04 12:09 | PN ---
Progress Note, Physician History of Present Illness: Rate-control improved after uptitration of metoprolol. Denies chest pain or dyspnea. - Current Medication List Current Medications: Active Medications Acetaminophen (Tylenol -) 325 mg PO Q6H PRN PRN Reason: PAIN 6-10 Last Admin: 01/03/18 16:39 Dose: 325 mg Atorvastatin Calcium (Lipitor -) 10 mg PO HS [facility] Last Admin: 01/03/18 21:22 Dose: 10 mg Budesonide/Formoterol Fumarate (Symbicort 160/4.5mcg -) 2 puff IH BID [facility] Last Admin: 01/04/18 11:15 Dose: 2 puff Diltiazem HCl (Cardizem Injection -) 10 mg IVPUSH Q4H PRN PRN Reason: HR > 110 Last Admin: 01/04/18 01:15 Dose: 10 mg Folic Acid (Folic Acid -) 1 mg PO DAILY [facility] Last Admin: 01/04/18 11:14 Dose: 1 mg Gabapentin (Neurontin -) 100 mg PO TID [facility] Last Admin: 01/04/18 06:05 Dose: 100 mg Heparin Sodium (Porcine) (Heparin -) 1,000 unit IVPUSH PRN PRN PRN Reason: Heparin Last Admin: 01/04/18 11:16 Dose: 1,000 unit Heparin Sodium (Porcine) (Heparin -) 5,000 unit IVPUSH PRN PRN PRN Reason: Heparin Last Admin: 01/03/18 20:10 Dose: 5,000 unit HEPARIN SOD,PORK IN 0.45% NACL (Heparin-1/2ns 25,000 Units/500) 25,000 units in 500 mls @ 20 mls/hr IVPB TITR [facility]; Protocol Last Titration: 01/04/18 11:15 Dose: 1,250 units/hr, 25 mls/hr Insulin Aspart (Novolog Vial) 5 units SQ TIDAC [facility] Last Admin: 01/04/18 06:13 Dose: 5 units Insulin Aspart (Novolog Vial Sliding Scale -) 1 vial SQ TIDAC [facility]; Protocol Last Admin: 01/04/18 06:13 Dose: 2 units Insulin Detemir (Levemir Vial) 33 units SQ HS [facility] Last Admin: 01/03/18 21:22 Dose: 33 units Isosorbide Mononitrate (Imdur -) 60 mg PO DAILY [facility] Last Admin: 01/04/18 11:15 Dose: 60 mg Lisinopril (Prinivil) 5 mg PO DAILY [facility] Last Admin: 01/04/18 11:14 Dose: 5 mg Metoprolol Tartrate (Lopressor -) 50 mg PO TID [facility] Last Admin: 01/04/18 06:05 Dose: 50 mg Multivit/Ca Carb/B Cmplx/FA/Prenat (Nephro-Essie -) 1 tablet PO DAILY [facility] Last Admin: 01/04/18 11:15 Dose: 1 tablet Oxycodone HCl (Roxicodone -) 5 mg PO Q6H PRN PRN Reason: PAIN SCALE 6 -10 Last Admin: 01/03/18 22:09 Dose: 5 mg Polyethylene Glycol (Miralax (For Daily Use) -) 17 gm PO BID [facility] Last Admin: 01/04/18 11:15 Dose: 17 gm Polysaccharide Iron Complex (Niferex-150 -) 150 mg PO DAILY [facility] Last Admin: 01/04/18 11:14 Dose: 150 mg Ranitidine HCl (Zantac -) 150 mg PO DAILY [facility] Last Admin: 01/04/18 11:14 Dose: 150 mg Senna (Senna -) 2 tab PO HS [facility] Last Admin: 01/03/18 21:21 Dose: 2 tab Silver Sulfadiazine (Silvadene -) 1 applic TP BID [facility] Last Admin: 01/03/18 22:07 Dose: 1 applic Simethicone (Mylicon -) 80 mg PO Q6H PRN PRN Reason: DYSPEPSIA Last Admin: 12/31/17 07:24 Dose: 80 mg Warfarin Sodium (Coumadin -) 5 mg PO DAILY@1800 [facility] Last Admin: 01/03/18 17:25 Dose: 5 mg - Objective Vital Signs: Vital Signs Temperature 97.8 F 01/04/18 07:25 Pulse Rate 68 01/04/18 11:00 Respiratory Rate 18 01/04/18 11:00 Blood Pressure 124/70 01/04/18 11:00 O2 Sat by Pulse Oximetry (%) 98 01/03/18 21:00 Constitutional: Yes: No Distress, Calm Neck: Yes: Supple Cardiovascular: Yes: Pulse Irregular Respiratory: Yes: Regular, Diminished, On Nasal O2 Gastrointestinal: Yes: Normal Bowel Sounds, Soft, Abdomen, Obese Edema: Yes Labs: CBC, BMP 01/04/18 06:00 01/04/18 06:00 INR, PTT INR 1.49 (0.83-1.09) H 01/04/18 06:00 - ....Imaging EKG: Report Reviewed (Tele: Afib) Problem List - Problems (1) End stage renal disease on dialysis Code(s): N18.6 - END STAGE RENAL DISEASE; Z99.2 - DEPENDENCE ON RENAL DIALYSIS (2) Sepsis Code(s): A41.9 - SEPSIS, UNSPECIFIED ORGANISM (3) Afib Code(s): I48.91 - UNSPECIFIED ATRIAL FIBRILLATION Qualifiers: Atrial fibrillation type: persistent Qualified Code(s): I48.1 - Persistent atrial fibrillation (4) Anemia Code(s): D64.9 - ANEMIA, UNSPECIFIED Qualifiers: Anemia type: due to chronic kidney disease Chronic kidney disease stage: on chronic dialysis Qualified Code(s): N18.6 - End stage renal disease; D63.1 - Anemia in chronic kidney disease; Z99.2 - Dependence on renal dialysis (5) Anticoagulated on Coumadin Code(s): Z51.81 - ENCOUNTER FOR THERAPEUTIC DRUG LEVEL MONITORING; Z79.01 - DETENTION (CURRENT) USE OF 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 (6) Diabetes mellitus Code(s): E11.9 - TYPE 2 DIABETES MELLITUS WITHOUT COMPLICATIONS Qualifiers: Diabetes mellitus type: type 2 Diabetes mellitus complication status: with kidney complications Diabetes mellitus complication detail: with chronic kidney disease Chronic kidney disease stage: on chronic dialysis (7) Diastolic CHF, acute on chronic Code(s): I50.33 - ACUTE ON CHRONIC DIASTOLIC (CONGESTIVE) HEART FAILURE (8) Morbid obesity Code(s): E66.01 - MORBID (SEVERE) OBESITY DUE TO EXCESS CALORIES (9) Sleep apnea in adult Code(s): G47.33 - OBSTRUCTIVE SLEEP APNEA (ADULT) (PEDIATRIC) Assessment/Plan echo 10/2017 TDS, normal LV fxn echo 09/2015 tds echo 01/2013: tds, nl lvef, valves not seen well cath 11/2007: normal cors 1. Sepsis syndrome ? source 2. Paroxysmal afib with improved rate-control on coumadin with subtherapeutic INR 3. Chronic diastolic failure 4. HTN 5. Hyperlipidemia 6. ESRD on HD 7. Morbid obesity, with OSAS/OHS suspected 8. Anemia PLAN: 1. Heparin gtt-> Coumadin as per INR 2-3 with GI protection 2. Continue Lopressor 50 tid with uptitration as tolerated 3. Started lisinopril 5 qd per renal 4. D/mildred Imdur 60 qd 5. HD/UF per renal 6. Continue Lipitor 10 qhs 7. Empiric vanco/ cefepime, adjusted for ESRD per ID, bowel regimen
[2018-01-04] MEDS: SILVER SULFADIAZINE 1% TOP CREAM 400 GM JAR TP SCH ×2 (13:27→21:17)
[2018-01-04] MEDS: ACETAMINOPHEN 325 MG TABLET (FP) PO PRN (16:39)
[2018-01-04] MEDS: oxyCODONE HCL 5 MG TABLET PO PRN (16:41)
[2018-01-04] MEDS: WARFARIN NA 5 MG TABLET (UD) PO SCH (17:03)
[2018-01-04] MEDS: HEPARIN SOD,PORK IN 0.45% NACL 25,000 UNITS/500 ML INFUS.BAG IVPB SCH (17:04)
--- NOTE | 2018-01-04 17:11 | PN ---
Progress Note, Physician History of Present Illness: Pt seen and examined at bedside. She tolerated HD today. She denies shortness of breath. - Current Medication List Current Medications: Active Medications Acetaminophen (Tylenol -) 325 mg PO Q6H PRN PRN Reason: PAIN 6-10 Last Admin: 01/04/18 16:39 Dose: 325 mg Atorvastatin Calcium (Lipitor -) 10 mg PO HS [facility] Last Admin: 01/03/18 21:22 Dose: 10 mg Budesonide/Formoterol Fumarate (Symbicort 160/4.5mcg -) 2 puff IH BID [facility] Last Admin: 01/04/18 11:15 Dose: 2 puff Diltiazem HCl (Cardizem Injection -) 10 mg IVPUSH Q4H PRN PRN Reason: HR > 110 Last Admin: 01/04/18 01:15 Dose: 10 mg Folic Acid (Folic Acid -) 1 mg PO DAILY [facility] Last Admin: 01/04/18 11:14 Dose: 1 mg Gabapentin (Neurontin -) 100 mg PO TID [facility] Last Admin: 01/04/18 14:30 Dose: 100 mg Heparin Sodium (Porcine) (Heparin -) 1,000 unit IVPUSH PRN PRN PRN Reason: Heparin Last Admin: 01/04/18 11:16 Dose: 1,000 unit Heparin Sodium (Porcine) (Heparin -) 5,000 unit IVPUSH PRN PRN PRN Reason: Heparin Last Admin: 01/04/18 17:04 Dose: 5,000 unit HEPARIN SOD,PORK IN 0.45% NACL (Heparin-1/2ns 25,000 Units/500) 25,000 units in 500 mls @ 20 mls/hr IVPB TITR [facility]; Protocol Last Admin: 01/04/18 17:04 Dose: 1,400 units/hr, 28 mls/hr Insulin Aspart (Novolog Vial) 5 units SQ TIDAC [facility] Last Admin: 01/04/18 16:39 Dose: 5 units Insulin Aspart (Novolog Vial Sliding Scale -) 1 vial SQ TIDAC [facility]; Protocol Last Admin: 01/04/18 16:39 Dose: 2 units Insulin Detemir (Levemir Vial) 33 units SQ HS [facility] Last Admin: 01/03/18 21:22 Dose: 33 units Isosorbide Mononitrate (Imdur -) 60 mg PO DAILY [facility] Last Admin: 01/04/18 11:15 Dose: 60 mg Lisinopril (Prinivil) 5 mg PO DAILY [facility] Last Admin: 01/04/18 11:14 Dose: 5 mg Metoprolol Tartrate (Lopressor -) 50 mg PO TID [facility] Last Admin: 01/04/18 14:30 Dose: 50 mg Multivit/Ca Carb/B Cmplx/FA/Prenat (Nephro-Essie -) 1 tablet PO DAILY [facility] Last Admin: 01/04/18 11:15 Dose: 1 tablet Oxycodone HCl (Roxicodone -) 5 mg PO Q6H PRN PRN Reason: PAIN SCALE 6 -10 Last Admin: 01/04/18 16:41 Dose: 5 mg Polyethylene Glycol (Miralax (For Daily Use) -) 17 gm PO BID [facility] Last Admin: 01/04/18 11:15 Dose: 17 gm Polysaccharide Iron Complex (Niferex-150 -) 150 mg PO DAILY [facility] Last Admin: 01/04/18 11:14 Dose: 150 mg Ranitidine HCl (Zantac -) 150 mg PO DAILY [facility] Last Admin: 01/04/18 11:14 Dose: 150 mg Senna (Senna -) 2 tab PO HS [facility] Last Admin: 01/03/18 21:21 Dose: 2 tab Silver Sulfadiazine (Silvadene -) 1 applic TP BID [facility] Last Admin: 01/04/18 13:27 Dose: 1 applic Simethicone (Mylicon -) 80 mg PO Q6H PRN PRN Reason: DYSPEPSIA Last Admin: 12/31/17 07:24 Dose: 80 mg Warfarin Sodium (Coumadin -) 5 mg PO DAILY@1800 [facility] Last Admin: 01/04/18 17:03 Dose: 5 mg - Objective Vital Signs: Vital Signs Temperature 98.2 F 01/04/18 15:40 Pulse Rate 75 01/04/18 15:40 Respiratory Rate 20 01/04/18 15:40 Blood Pressure 140/64 01/04/18 15:40 O2 Sat by Pulse Oximetry (%) 98 01/04/18 10:00 Constitutional: Yes: Calm Eyes: Yes: Conjunctiva Clear HENT: Yes: Atraumatic Neck: Yes: Supple Cardiovascular: Yes: S1, S2 Respiratory: Yes: On Nasal O2 Gastrointestinal: Yes: Soft, Abdomen, Obese Genitourinary: Yes: Incontinence Musculoskeletal: Yes: Muscle Weakness Edema: Yes Edema: LLE: 1+, RLE: 1+ Neurological: Yes: Oriented Psychiatric: Yes: Oriented Labs: CBC, BMP 01/04/18 06:00 01/04/18 06:00 INR, PTT INR 1.49 (0.83-1.09) H 01/04/18 06:00 Problem List - Problems (1) End stage renal disease on dialysis Code(s): N18.6 - END STAGE RENAL DISEASE; Z99.2 - DEPENDENCE ON RENAL DIALYSIS Assessment/Plan Current Medications Generic Name Dose Route Start Last Admin Trade Name Freq PRN Reason Stop Dose Admin Acetaminophen 325 mg 12/29/17 14:56 01/04/18 16:39 Tylenol - PO 325 mg Q6H PRN Administration PAIN 6-10 Atorvastatin Calcium 10 mg 12/29/17 22:00 01/03/18 21:22 Lipitor - PO 10 mg HS [facility] Administration Budesonide/Formoterol Fumarate 2 puff 12/29/17 22:00 01/04/18 11:15 Symbicort 160/4.5mcg - IH 2 puff BID [facility] Administration Diltiazem HCl 10 mg 01/01/18 04:52 01/04/18 01:15 Cardizem Injection - IVPUSH 10 mg Q4H PRN Administration HR > 110 Folic Acid 1 mg 12/30/17 10:00 01/04/18 11:14 Folic Acid - PO 1 mg DAILY [facility] Administration Gabapentin 100 mg 12/29/17 14:51 01/04/18 14:30 Neurontin - PO 100 mg TID [facility] Administration Heparin Sodium (Porcine) 1,000 unit 01/03/18 13:32 01/04/18 11:16 Heparin - IVPUSH 1,000 unit PRN PRN Administration Heparin Heparin Sodium (Porcine) 5,000 unit 01/03/18 13:32 01/04/18 17:04 Heparin - IVPUSH 5,000 unit PRN PRN Administration Heparin HEPARIN SOD,PORK IN 0.45% NACL 25,000 units in 500 mls @ 20 mls/hr 01/03/18 13 :45 01/04/18 17:04 Heparin-1/2ns 25,000 Units/500 IVPB 1,400 units/hr TITR [facility] 28 mls/hr Administration Protocol 1,000 UNITS/HR Insulin Aspart 5 units 12/29/17 16:30 01/04/18 16:39 Novolog Vial SQ 5 units TIDAC [facility] Administration Insulin Aspart 1 vial 12/29/17 16:30 01/04/18 16:39 Novolog Vial Sliding Scale - SQ 2 units TIDAC [facility] Administration Protocol Insulin Detemir 33 units 12/29/17 22:00 01/03/18 21:22 Levemir Vial SQ 33 units HS [facility] Administration Isosorbide Mononitrate 60 mg 12/30/17 10:00 01/04/18 11:15 Imdur - PO 60 mg DAILY [facility] Administration Lisinopril 5 mg 01/02/18 10:00 01/04/18 11:14 Prinivil PO 5 mg DAILY [facility] Administration Metoprolol Tartrate 50 mg 01/01/18 06:00 01/04/18 14:30 Lopressor - PO 50 mg TID [facility] Administration Multivit/Ca Carb/B Cmplx/FA/Prenat 1 tablet 12/30/17 10:00 01/04/18 11:15 Nephro-Essie - PO 1 tablet DAILY [facility] Administration Oxycodone HCl 5 mg 01/02/18 12:24 01/04/18 16:41 Roxicodone - PO 5 mg Q6H PRN Administration PAIN SCALE 6 -10 Polyethylene Glycol 17 gm 01/01/18 22:00 01/04/18 11:15 Miralax (For Daily Use) - PO 17 gm BID [facility] Administration Polysaccharide Iron Complex 150 mg 12/30/17 10:00 01/04/18 11:14 Niferex-150 - PO 150 mg DAILY [facility] Administration Ranitidine HCl 150 mg 12/30/17 10:00 01/04/18 11:14 Zantac - PO 150 mg DAILY [facility] Administration Senna 2 tab 12/31/17 22:00 01/03/18 21:21 Senna - PO 2 tab HS [facility] Administration Silver Sulfadiazine 1 applic 12/29/17 22:00 01/04/18 13:27 Silvadene - TP 1 applic BID [facility] Administration Simethicone 80 mg 12/29/17 14:00 12/31/17 07:24 Mylicon - PO 80 mg Q6H PRN Administration DYSPEPSIA Warfarin Sodium 5 mg 09/25/18 18:00 01/04/18 17:03 Coumadin - PO 5 mg DAILY@1800 [facility] Administration Impression 1. ESRD 2. obesity 3. hyperlipidemia 4. HTN 5. DM 6. CHF 7. CAD 8. anemia 9. a-fib 10. iron deficiency 11. r/o TIA 12. sepsis Plan - HD today, pt tolerated - bladder scan showed 190 cc and pt did void afterwards - epogen for anemia - monitor coags on heparin - titrate lisinopril dose as tolerated - cardio input appreciated - will follow Dr Capps
[2018-01-04] MEDS: SENNOSIDES 8.6MG TABLET (FP) PO SCH (21:15)
[2018-01-04] MEDS: ATORVASTATIN CA 10 MG TABLET (FP) PO SCH (21:15)
[2018-01-04] MEDS: INSULIN (LEVEMIR) 100 UNITS/ML UNITS SQ SCH (21:16)
[2018-01-05 06:06] LABS: HEMATOCRIT 27.8 % (32.4-45.2); MCH 28.3 pg (25.7-33.7); MCHC 32.2 g/dl (32.0-36.0); MEAN CELL VOLUME 87.7 fl (80-96); MEAN PLT VOLUME 7.9 fl (7.5-11.1); PLATELET COUNT 169 K/MM3 (134-434); RBC 3.17 M/mm3 (3.60-5.2); RDW 16.2 % (11.6-15.6); WHITE BLOOD COUNT 7.8 K/mm3 (4.0-10.0)
[2018-01-05] MEDS: METOPROLOL TARTRATE 50 MG TABLET (FP) PO SCH ×3 (06:27→22:24)
[2018-01-05] MEDS: GABAPENTIN 100 MG CAPSULE (FP) PO SCH ×3 (06:27→22:34)
[2018-01-05] MEDS: INSULIN SLIDING SCALE (NOVOLOG) 1 VIAL SQ SCH ×3 (06:35→16:38)
[2018-01-05] MEDS: INSULIN (NOVOLOG) ASPART 100 UNITS/ML 10ML VIAL SQ SCH ×3 (06:36→17:17)
[2018-01-05 06:50] LABS: INR 1.65 (0.83-1.09); PROTHROMBIN TIME (PATIENT) 18.7 SEC (9.7-13.0)
[2018-01-05] MEDS: HEPARIN NA (PORCINE) 5,000 UNITS/ML 1ML VIAL IVPUSH PRN ×2 (09:12→18:37)
[2018-01-05] MEDS ORDERED: PT OWN MED DRAWER 7, Y5N ONE ×2 (10:03→22:17)
[2018-01-05] MEDS: RANITIDINE HCL 150 MG TABLET (FP) PO SCH (10:06)
[2018-01-05] MEDS: FOLIC ACID 1 MG TABLET (FP) PO SCH (10:06)
[2018-01-05] MEDS: POLYETHYLENE GLYCOL 3350 119 GM BTL PO SCH ×2 (10:06→22:25)
[2018-01-05] MEDS: ISOSORBIDE MONONITRATE 60 MG TAB.SR.24H (FP) PO SCH (10:06)
[2018-01-05] MEDS: LISINOPRIL 5 MG TABLET (FP) PO SCH (10:06)
[2018-01-05] MEDS: IRON POLYSACCHARIDES 150 MG CAPSULE PO SCH (10:06)
[2018-01-05] MEDS: VITAMIN B COMP W-C 1 EA TABLET PO SCH (10:07)
[2018-01-05] MEDS: BUDESONIDE/FORMETEROL FUMARATE 160/4.5 mcg INHALER IH SCH ×2 (10:07→22:23)
[2018-01-05] MEDS: oxyCODONE HCL 5 MG TABLET PO PRN ×3 (10:12→22:25)
[2018-01-05] MEDS: ACETAMINOPHEN 325 MG TABLET (FP) PO PRN ×3 (10:12→22:24)
[2018-01-05] MEDS: SILVER SULFADIAZINE 1% TOP CREAM 400 GM JAR TP SCH ×2 (10:15→22:34)
[2018-01-05] MEDS ORDERED: INSULIN (NOVOLOG) ASPART 100 UNITS/ML 10ML VIAL ONE (11:25)
[2018-01-05] MEDS: HEPARIN SOD,PORK IN 0.45% NACL 25,000 UNITS/500 ML INFUS.BAG IVPB SCH ×2 (11:28→14:06)
--- NOTE | 2018-01-05 12:11 | PN ---
Progress Note, Physician History of Present Illness: Rate-control improved after uptitration of metoprolol. Denies chest pain or dyspnea. Off abx, cx negative. - Current Medication List Current Medications: Active Medications Acetaminophen (Tylenol -) 325 mg PO Q6H PRN PRN Reason: PAIN 6-10 Last Admin: 01/05/18 10:12 Dose: 325 mg Atorvastatin Calcium (Lipitor -) 10 mg PO HS [facility] Last Admin: 01/04/18 21:15 Dose: 10 mg Budesonide/Formoterol Fumarate (Symbicort 160/4.5mcg -) 2 puff IH BID [facility] Last Admin: 01/05/18 10:07 Dose: 2 puff Diltiazem HCl (Cardizem Injection -) 10 mg IVPUSH Q4H PRN PRN Reason: HR > 110 Last Admin: 01/04/18 01:15 Dose: 10 mg Folic Acid (Folic Acid -) 1 mg PO DAILY [facility] Last Admin: 01/05/18 10:06 Dose: 1 mg Gabapentin (Neurontin -) 100 mg PO TID [facility] Last Admin: 01/05/18 06:27 Dose: 100 mg Heparin Sodium (Porcine) (Heparin -) 1,000 unit IVPUSH PRN PRN PRN Reason: Heparin Last Admin: 01/04/18 11:16 Dose: 1,000 unit Heparin Sodium (Porcine) (Heparin -) 5,000 unit IVPUSH PRN PRN PRN Reason: Heparin Last Admin: 01/05/18 09:12 Dose: 5,000 unit HEPARIN SOD,PORK IN 0.45% NACL (Heparin-1/2ns 25,000 Units/500) 25,000 units in 500 mls @ 20 mls/hr IVPB TITR [facility]; Protocol Last Admin: 01/05/18 11:28 Dose: 1,700 units/hr, 34 mls/hr Insulin Aspart (Novolog Vial) 5 units SQ TIDAC [facility] Last Admin: 01/05/18 11:27 Dose: 5 units Insulin Aspart (Novolog Vial Sliding Scale -) 1 vial SQ TIDAC [facility]; Protocol Last Admin: 01/05/18 11:28 Dose: 4 units Insulin Detemir (Levemir Vial) 33 units SQ HS [facility] Last Admin: 01/04/18 21:16 Dose: 33 units Isosorbide Mononitrate (Imdur -) 60 mg PO DAILY [facility] Last Admin: 01/05/18 10:06 Dose: 60 mg Lisinopril (Prinivil) 5 mg PO DAILY [facility] Last Admin: 01/05/18 10:06 Dose: 5 mg Metoprolol Tartrate (Lopressor -) 50 mg PO TID [facility] Last Admin: 01/05/18 06:27 Dose: 50 mg Multivit/Ca Carb/B Cmplx/FA/Prenat (Nephro-Essie -) 1 tablet PO DAILY [facility] Last Admin: 01/05/18 10:07 Dose: 1 tablet Oxycodone HCl (Roxicodone -) 5 mg PO Q6H PRN PRN Reason: PAIN SCALE 6 -10 Last Admin: 01/05/18 10:12 Dose: 5 mg Polyethylene Glycol (Miralax (For Daily Use) -) 17 gm PO BID [facility] Last Admin: 01/05/18 10:06 Dose: 17 gm Polysaccharide Iron Complex (Niferex-150 -) 150 mg PO DAILY [facility] Last Admin: 01/05/18 10:06 Dose: 150 mg Ranitidine HCl (Zantac -) 150 mg PO DAILY [facility] Last Admin: 01/05/18 10:06 Dose: 150 mg Senna (Senna -) 2 tab PO HS [facility] Last Admin: 01/04/18 21:15 Dose: 2 tab Silver Sulfadiazine (Silvadene -) 1 applic TP BID [facility] Last Admin: 01/05/18 10:15 Dose: 1 applic Simethicone (Mylicon -) 80 mg PO Q6H PRN PRN Reason: DYSPEPSIA Last Admin: 12/31/17 07:24 Dose: 80 mg Warfarin Sodium (Coumadin -) 5 mg PO DAILY@1800 [facility] Last Admin: 01/04/18 17:03 Dose: 5 mg - Objective Vital Signs: Vital Signs Temperature 98.1 F 01/05/18 05:40 Pulse Rate 78 01/05/18 05:40 Respiratory Rate 18 01/05/18 05:40 Blood Pressure 130/63 01/05/18 05:40 O2 Sat by Pulse Oximetry (%) 97 01/04/18 21:00 Constitutional: Yes: No Distress, Calm Neck: Yes: Supple Cardiovascular: Yes: Pulse Irregular Respiratory: Yes: Regular, Diminished, On Nasal O2 Gastrointestinal: Yes: Normal Bowel Sounds, Soft, Abdomen, Obese Edema: Yes Labs: CBC, BMP 01/05/18 05:30 01/04/18 06:00 INR, PTT INR 1.65 (0.83-1.09) H 01/05/18 05:30 - ....Imaging EKG: Report Reviewed (Tele: Rate-controlled afib) Problem List - Problems (1) End stage renal disease on dialysis Code(s): N18.6 - END STAGE RENAL DISEASE; Z99.2 - DEPENDENCE ON RENAL DIALYSIS (2) Sepsis Code(s): A41.9 - SEPSIS, UNSPECIFIED ORGANISM (3) Afib Code(s): I48.91 - UNSPECIFIED ATRIAL FIBRILLATION Qualifiers: Atrial fibrillation type: persistent Qualified Code(s): I48.1 - Persistent atrial fibrillation (4) Anemia Code(s): D64.9 - ANEMIA, UNSPECIFIED Qualifiers: Anemia type: due to chronic kidney disease Chronic kidney disease stage: on chronic dialysis Qualified Code(s): N18.6 - End stage renal disease; D63.1 - Anemia in chronic kidney disease; Z99.2 - Dependence on renal dialysis (5) Anticoagulated on Coumadin Code(s): Z51.81 - ENCOUNTER FOR THERAPEUTIC DRUG LEVEL MONITORING; 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 (6) Diabetes mellitus Code(s): E11.9 - TYPE 2 DIABETES MELLITUS WITHOUT COMPLICATIONS Qualifiers: Diabetes mellitus type: type 2 Diabetes mellitus complication status: with kidney complications Diabetes mellitus complication detail: with chronic kidney disease Chronic kidney disease stage: on chronic dialysis (7) Diastolic CHF, acute on chronic Code(s): I50.33 - ACUTE ON CHRONIC DIASTOLIC (CONGESTIVE) HEART FAILURE (8) Morbid obesity Code(s): E66.01 - MORBID (SEVERE) OBESITY DUE TO EXCESS CALORIES (9) Sleep apnea in adult Code(s): G47.33 - OBSTRUCTIVE SLEEP APNEA (ADULT) (PEDIATRIC) Assessment/Plan echo 10/2017 TDS, normal LV fxn echo 09/2015 tds echo 01/2013: tds, nl lvef, valves not seen well cath 11/2007: normal cors 1. Resolved sepsis syndrome - cx NGTD 2. Paroxysmal afib with improved rate-control on coumadin with subtherapeutic INR 3. Chronic diastolic failure 4. HTN 5. Hyperlipidemia 6. ESRD on HD 7. Morbid obesity, with OSAS/OHS suspected 8. Anemia PLAN: 1. Heparin gtt-> Coumadin as per INR 2-3 with GI protection 2. Continue Lopressor 50 tid with uptitration as tolerated 3. Increased lisinopril 10 qd, lmdur 60 qd d/mildred 4. HD/UF per renal 5. Continue Lipitor 10 qhs 6. Off abx, adjusted for ESRD per ID, bowel regimen
--- NOTE | 2018-01-05 13:01 | PN ---
Progress Note (short form) - Note Progress Note: feeling better denies chest pain or palpitations or SOB 01/04/18 01/04/18 01/04/18 15:40 18:00 21:00 Temperature 98.2 F 98.0 F 99.0 F Pulse Rate 75 77 70 Respiratory 20 20 20 Rate Blood Pressure 140/64 121/65 130/72 O2 Sat by Pulse 97 Oximetry (%) 01/05/18 01/05/18 01:49 05:40 Temperature 98.1 F 98.1 F Pulse Rate 70 78 Respiratory 20 18 Rate Blood Pressure 152/69 130/63 O2 Sat by Pulse Oximetry (%) Current Medications Generic Name Dose Route Start Last Admin Trade Name Freq PRN Reason Stop Dose Admin Acetaminophen 325 mg 12/29/17 14:56 01/05/18 10:12 Tylenol - PO 325 mg Q6H PRN Administration PAIN 6-10 Atorvastatin Calcium 10 mg 12/29/17 22:00 01/04/18 21:15 Lipitor - PO 10 mg HS [facility] Administration Budesonide/Formoterol Fumarate 2 puff 12/29/17 22:00 01/05/18 10:07 Symbicort 160/4.5mcg - IH 2 puff BID [facility] Administration Diltiazem HCl 10 mg 01/01/18 04:52 01/04/18 01:15 Cardizem Injection - IVPUSH 10 mg Q4H PRN Administration HR > 110 Folic Acid 1 mg 12/30/17 10:00 01/05/18 10:06 Folic Acid - PO 1 mg DAILY [facility] Administration Gabapentin 100 mg 12/29/17 14:51 01/05/18 06:27 Neurontin - PO 100 mg TID [facility] Administration Heparin Sodium (Porcine) 1,000 unit 01/03/18 13:32 01/04/18 11:16 Heparin - IVPUSH 1,000 unit PRN PRN Administration Heparin Heparin Sodium (Porcine) 5,000 unit 01/03/18 13:32 01/05/18 09:12 Heparin - IVPUSH 5,000 unit PRN PRN Administration Heparin HEPARIN SOD,PORK IN 0.45% NACL 25,000 units in 500 mls @ 20 mls/hr 01/03/18 13 :45 01/05/18 11:28 Heparin-1/2ns 25,000 Units/500 IVPB 1,700 units/hr TITR [facility] 34 mls/hr Administration Protocol 1,000 UNITS/HR Insulin Aspart 5 units 12/29/17 16:30 01/05/18 11:27 Novolog Vial SQ 5 units TIDAC [facility] Administration Insulin Aspart 1 vial 12/29/17 16:30 01/05/18 11:28 Novolog Vial Sliding Scale - SQ 4 units TIDAC [facility] Administration Protocol Insulin Detemir 33 units 12/29/17 22:00 01/04/18 21:16 Levemir Vial SQ 33 units HS [facility] Administration Lisinopril 10 mg 01/05/18 12:13 Prinivil PO DAILY [facility] Metoprolol Tartrate 50 mg 01/01/18 06:00 01/05/18 06:27 Lopressor - PO 50 mg TID [facility] Administration Multivit/Ca Carb/B Cmplx/FA/Prenat 1 tablet 12/30/17 10:00 01/05/18 10:07 Nephro-Essie - PO 1 tablet DAILY [facility] Administration Oxycodone HCl 5 mg 01/02/18 12:24 01/05/18 10:12 Roxicodone - PO 5 mg Q6H PRN Administration PAIN SCALE 6 -10 Polyethylene Glycol 17 gm 01/01/18 22:00 01/05/18 10:06 Miralax (For Daily Use) - PO 17 gm BID [facility] Administration Polysaccharide Iron Complex 150 mg 12/30/17 10:00 01/05/18 10:06 Niferex-150 - PO 150 mg DAILY [facility] Administration Ranitidine HCl 150 mg 12/30/17 10:00 01/05/18 10:06 Zantac - PO 150 mg DAILY [facility] Administration Senna 2 tab 12/31/17 22:00 01/04/18 21:15 Senna - PO 2 tab HS [facility] Administration Silver Sulfadiazine 1 applic 12/29/17 22:00 01/05/18 10:15 Silvadene - TP 1 applic BID [facility] Administration Simethicone 80 mg 12/29/17 14:00 12/31/17 07:24 Mylicon - PO 80 mg Q6H PRN Administration DYSPEPSIA Warfarin Sodium 5 mg 01/03/18 18:00 01/04/18 17:03 Coumadin - PO 5 mg DAILY@1800 [facility] Administration Laboratory Results - last 24 hr 09/01/04/18 01/04/18 12:40 15:10 16:07 WBC RBC Hgb Hct MCV MCH MCHC RDW Plt Count MPV PT with INR INR PTT (Actin FS) 27.9 POC Glucometer 164 Stool Occult Blood Negative 01/04/18 01/04/18 01/05/18 21:14 21:45 05:30 WBC 7.8 RBC 3.17 L Hgb 9.0 L Hct 27.8 L MCV 87.7 MCH 28.3 MCHC 32.2 RDW 16.2 H Plt Count 169 MPV 7.9 PT with INR INR PTT (Actin FS) 29.4 POC Glucometer 186 Stool Occult Blood 01/05/18 01/05/18 01/05/18 05:30 05:30 06:35 WBC RBC Hgb Hct MCV MCH MCHC RDW Plt Count MPV PT with INR 18.70 H INR 1.65 H PTT (Actin FS) 35.3 POC Glucometer 125 Stool Occult Blood 01/05/18 11:10 WBC RBC Hgb Hct MCV MCH MCHC RDW Plt Count MPV PT with INR INR PTT (Actin FS) POC Glucometer 211 Stool Occult Blood S1 S2 Irregular Lungs decreased Abd- soft, obese, NT , BS+ Edema decreased PLAN- on Heparin Gtt-- INR is subtherapeutic increase coumadin 7.5mg unable to do imaging to R/O PE as she can not fit into CT scan rate is controlled dialysis as per renal Problem List - Problems (1) End stage renal disease on dialysis Code(s): N18.6 - END STAGE RENAL DISEASE; Z99.2 - DEPENDENCE ON RENAL DIALYSIS (2) Sepsis Code(s): A41.9 - SEPSIS, UNSPECIFIED ORGANISM (3) Afib Code(s): I48.91 - UNSPECIFIED ATRIAL FIBRILLATION Qualifiers: Atrial fibrillation type: persistent Qualified Code(s): I48.1 - Persistent atrial fibrillation (4) CHF (congestive heart failure) Code(s): I50.9 - HEART FAILURE, UNSPECIFIED (5) Diabetes mellitus Code(s): E11.9 - TYPE 2 DIABETES MELLITUS WITHOUT COMPLICATIONS Qualifiers: Diabetes mellitus type: type 2 Diabetes mellitus complication status: with kidney complications Diabetes mellitus complication detail: with chronic kidney disease Chronic kidney disease stage: on chronic dialysis
--- NOTE | 2018-01-05 14:06 | PN ---
Progress Note, Physician History of Present Illness: Pt seen and examined at bedside. SHe is awake and alert. She denies shortness of breath. - Current Medication List Current Medications: Active Medications Acetaminophen (Tylenol -) 325 mg PO Q6H PRN PRN Reason: PAIN 6-10 Last Admin: 01/05/18 10:12 Dose: 325 mg Atorvastatin Calcium (Lipitor -) 10 mg PO HS [facility] Last Admin: 01/04/18 21:15 Dose: 10 mg Budesonide/Formoterol Fumarate (Symbicort 160/4.5mcg -) 2 puff IH BID [facility] Last Admin: 01/05/18 10:07 Dose: 2 puff Diltiazem HCl (Cardizem Injection -) 10 mg IVPUSH Q4H PRN PRN Reason: HR > 110 Last Admin: 01/04/18 01:15 Dose: 10 mg Folic Acid (Folic Acid -) 1 mg PO DAILY [facility] Last Admin: 01/05/18 10:06 Dose: 1 mg Gabapentin (Neurontin -) 100 mg PO TID [facility] Last Admin: 01/05/18 06:27 Dose: 100 mg Heparin Sodium (Porcine) (Heparin -) 1,000 unit IVPUSH PRN PRN PRN Reason: Heparin Last Admin: 01/04/18 11:16 Dose: 1,000 unit Heparin Sodium (Porcine) (Heparin -) 5,000 unit IVPUSH PRN PRN PRN Reason: Heparin Last Admin: 01/05/18 09:12 Dose: 5,000 unit HEPARIN SOD,PORK IN 0.45% NACL (Heparin-1/2ns 25,000 Units/500) 25,000 units in 500 mls @ 20 mls/hr IVPB TITR [facility]; Protocol Last Admin: 01/05/18 11:28 Dose: 1,700 units/hr, 34 mls/hr Insulin Aspart (Novolog Vial) 5 units SQ TIDAC [facility] Last Admin: 01/05/18 11:27 Dose: 5 units Insulin Aspart (Novolog Vial Sliding Scale -) 1 vial SQ TIDAC [facility]; Protocol Last Admin: 01/05/18 11:28 Dose: 4 units Insulin Detemir (Levemir Vial) 33 units SQ HS [facility] Last Admin: 01/04/18 21:16 Dose: 33 units Lisinopril (Prinivil) 10 mg PO DAILY [facility] Metoprolol Tartrate (Lopressor -) 50 mg PO TID [facility] Last Admin: 01/05/18 06:27 Dose: 50 mg Multivit/Ca Carb/B Cmplx/FA/Prenat (Nephro-Essie -) 1 tablet PO DAILY [facility] Last Admin: 01/05/18 10:07 Dose: 1 tablet Oxycodone HCl (Roxicodone -) 5 mg PO Q6H PRN PRN Reason: PAIN SCALE 6 -10 Last Admin: 01/05/18 10:12 Dose: 5 mg Polyethylene Glycol (Miralax (For Daily Use) -) 17 gm PO BID [facility] Last Admin: 01/05/18 10:06 Dose: 17 gm Polysaccharide Iron Complex (Niferex-150 -) 150 mg PO DAILY [facility] Last Admin: 01/05/18 10:06 Dose: 150 mg Ranitidine HCl (Zantac -) 150 mg PO DAILY [facility] Last Admin: 01/05/18 10:06 Dose: 150 mg Senna (Senna -) 2 tab PO HS [facility] Last Admin: 01/04/18 21:15 Dose: 2 tab Silver Sulfadiazine (Silvadene -) 1 applic TP BID [facility] Last Admin: 01/05/18 10:15 Dose: 1 applic Simethicone (Mylicon -) 80 mg PO Q6H PRN PRN Reason: DYSPEPSIA Last Admin: 12/31/17 07:24 Dose: 80 mg Warfarin Sodium (Coumadin -) 5 mg PO DAILY@1800 [facility] Last Admin: 01/04/18 17:03 Dose: 5 mg - Objective Vital Signs: Vital Signs Temperature 98.1 F 01/05/18 05:40 Pulse Rate 78 01/05/18 05:40 Respiratory Rate 18 01/05/18 05:40 Blood Pressure 130/63 01/05/18 05:40 O2 Sat by Pulse Oximetry (%) 97 01/04/18 21:00 Constitutional: Yes: Calm Eyes: Yes: Conjunctiva Clear HENT: Yes: Atraumatic Neck: Yes: Supple Cardiovascular: Yes: S1, S2 Respiratory: Yes: CTA Bilaterally, On Nasal O2 Gastrointestinal: Yes: Normal Bowel Sounds, Soft, Abdomen, Obese Genitourinary: Yes: Incontinence Musculoskeletal: Yes: Muscle Weakness Edema: Yes Edema: LLE: Trace, RLE: Trace Neurological: Yes: Oriented Psychiatric: Yes: Oriented Labs: CBC, BMP 01/05/18 05:30 01/04/18 06:00 INR, PTT INR 1.65 (0.83-1.09) H 01/05/18 05:30 Problem List - Problems (1) End stage renal disease on dialysis Code(s): N18.6 - END STAGE RENAL DISEASE; Z99.2 - DEPENDENCE ON RENAL DIALYSIS Assessment/Plan Current Medications Generic Name Dose Route Start Last Admin Trade Name Freq PRN Reason Stop Dose Admin Acetaminophen 325 mg 12/29/17 14:56 01/05/18 10:12 Tylenol - PO 325 mg Q6H PRN Administration PAIN 6-10 Atorvastatin Calcium 10 mg 12/29/17 22:00 01/04/18 21:15 Lipitor - PO 10 mg HS [facility] Administration Budesonide/Formoterol Fumarate 2 puff 12/29/17 22:00 01/05/18 10:07 Symbicort 160/4.5mcg - IH 2 puff BID [facility] Administration Diltiazem HCl 10 mg 01/01/18 04:52 01/04/18 01:15 Cardizem Injection - IVPUSH 10 mg Q4H PRN Administration HR > 110 Folic Acid 1 mg 12/30/17 10:00 01/05/18 10:06 Folic Acid - PO 1 mg DAILY [facility] Administration Gabapentin 100 mg 12/29/17 14:51 01/05/18 06:27 Neurontin - PO 100 mg TID [facility] Administration Heparin Sodium (Porcine) 1,000 unit 01/03/18 13:32 01/04/18 11:16 Heparin - IVPUSH 1,000 unit PRN PRN Administration Heparin Heparin Sodium (Porcine) 5,000 unit 01/03/18 13:32 01/05/18 09:12 Heparin - IVPUSH 5,000 unit PRN PRN Administration Heparin HEPARIN SOD,PORK IN 0.45% NACL 25,000 units in 500 mls @ 20 mls/hr 01/03/18 13 :45 01/05/18 11:28 Heparin-1/2ns 25,000 Units/500 IVPB 1,700 units/hr TITR [facility] 34 mls/hr Administration Protocol 1,000 UNITS/HR Insulin Aspart 5 units 12/29/17 16:30 01/05/18 11:27 Novolog Vial SQ 5 units TIDAC [facility] Administration Insulin Aspart 1 vial 12/29/17 16:30 01/05/18 11:28 Novolog Vial Sliding Scale - SQ 4 units TIDAC [facility] Administration Protocol Insulin Detemir 33 units 12/29/17 22:00 01/04/18 21:16 Levemir Vial SQ 33 units HS [facility] Administration Lisinopril 10 mg 01/05/18 12:13 Prinivil PO DAILY [facility] Metoprolol Tartrate 50 mg 01/01/18 06:00 01/05/18 06:27 Lopressor - PO 50 mg TID [facility] Administration Multivit/Ca Carb/B Cmplx/FA/Prenat 1 tablet 12/30/17 10:00 01/05/18 10:07 Nephro-Essie - PO 1 tablet DAILY [facility] Administration Oxycodone HCl 5 mg 01/02/18 12:24 01/05/18 10:12 Roxicodone - PO 5 mg Q6H PRN Administration PAIN SCALE 6 -10 Polyethylene Glycol 17 gm 01/01/18 22:00 01/05/18 10:06 Miralax (For Daily Use) - PO 17 gm BID [facility] Administration Polysaccharide Iron Complex 150 mg 12/30/17 10:00 01/05/18 10:06 Niferex-150 - PO 150 mg DAILY [facility] Administration Ranitidine HCl 150 mg 12/30/17 10:00 01/05/18 10:06 Zantac - PO 150 mg DAILY [facility] Administration Senna 2 tab 12/31/17 22:00 01/04/18 21:15 Senna - PO 2 tab HS [facility] Administration Silver Sulfadiazine 1 applic 12/29/17 22:00 01/05/18 10:15 Silvadene - TP 1 applic BID [facility] Administration Simethicone 80 mg 12/29/17 14:00 12/31/17 07:24 Mylicon - PO 80 mg Q6H PRN Administration DYSPEPSIA Warfarin Sodium 5 mg 01/03/18 18:00 01/04/18 17:03 Coumadin - PO 5 mg DAILY@1800 [facility] Administration Impression 1. ESRD 2. obesity 3. hyperlipidemia 4. HTN 5. DM 6. CHF 7. CAD 8. anemia 9. a-fib 10. iron deficiency 11. r/o TIA 12. sepsis Plan - HD in am - epogen for anemia - monitor coags on heparin - titrate lisinopril dose as tolerated - cardio input appreciated - will follow Dr Capps
[2018-01-05] MEDS: WARFARIN NA 7.5 MG TABLET (FP) PO SCH (17:17)
[2018-01-05] MEDS: ATORVASTATIN CA 10 MG TABLET (FP) PO SCH (22:24)
[2018-01-05] MEDS: SENNOSIDES 8.6MG TABLET (FP) PO SCH (22:24)
[2018-01-05] MEDS: INSULIN (LEVEMIR) 100 UNITS/ML UNITS SQ SCH (22:25)
[2018-01-06] MEDS: HEPARIN NA (PORCINE) 5,000 UNITS/ML 1ML VIAL IVPUSH PRN ×3 (01:48→18:49)
[2018-01-06] MEDS: SIMETHICONE 80 MG TAB.CHEW (FP) PO PRN ×2 (01:57→21:05)
[2018-01-06] MEDS: METOPROLOL TARTRATE 50 MG TABLET (FP) PO SCH ×4 (06:04→21:05)
[2018-01-06] MEDS: GABAPENTIN 100 MG CAPSULE (FP) PO SCH ×3 (06:04→21:05)
[2018-01-06] MEDS: INSULIN (NOVOLOG) ASPART 100 UNITS/ML 10ML VIAL SQ SCH ×3 (06:05→16:26)
[2018-01-06] MEDS: INSULIN SLIDING SCALE (NOVOLOG) 1 VIAL SQ SCH ×3 (06:05→16:26)
[2018-01-06] MEDS ORDERED: INSULIN (NOVOLOG) ASPART 100 UNITS/ML 10ML VIAL ONE (06:47)
[2018-01-06] MEDS ORDERED: SODIUM CHLORIDE 250 ML IV PRN (09:14)
[2018-01-06] MEDS ORDERED: EPOETIN ALFA 10,000 UNIT/1 ML VIAL IVPUSH ONE (10:00)
[2018-01-06 10:35] LABS: HEMOGLOBIN 8.8 GM/dL (10.7-15.3); MCH 28.7 pg (25.7-33.7); MCHC 32.6 g/dl (32.0-36.0); MEAN PLT VOLUME 8.2 fl (7.5-11.1); PLATELET COUNT 189 K/MM3 (134-434); RBC 3.07 M/mm3 (3.60-5.2); RDW 16.4 % (11.6-15.6); WHITE BLOOD COUNT 8.7 K/mm3 (4.0-10.0)
--- NOTE | 2018-01-06 11:08 | PN ---
Progress Note (short form) - Note Progress Note: pt seen/ examined currently being dialized feels ok still has periods of tachyarrythmia on monitor denies cp. feels ok Vital Signs Temp 98.8 F 01/06/18 09:50 Pulse 68 01/06/18 10:25 Resp 18 01/06/18 10:25 BP 109/78 01/06/18 10:25 Pulse Ox 100 01/05/18 22:00 Intake & Output 01/05/18 01/05/18 01/06/18 11:59 23:59 11:59 Intake Total 185 270 Balance 185 270 Intake: IV 185 270 HEPARIN-1/2NS 25,000 185 270 UNITS/500 25,000 units In 500 ml @ 1,000 UNITS/HR 20 mls/hr IVPB TITR [facility] Rx#:[id number] Other: Voiding Method Diaper Incontinent Incontinent # Unmeasured Voids Void 0 1 Bowel Movement No Yes No # Bowel Movements 1 1 Active Medications Acetaminophen (Tylenol -) 325 mg PO Q6H PRN PRN Reason: PAIN 6-10 Last Admin: 01/05/18 22:24 Dose: 325 mg Atorvastatin Calcium (Lipitor -) 10 mg PO HS [facility] Last Admin: 01/05/18 22:24 Dose: 10 mg Budesonide/Formoterol Fumarate (Symbicort 160/4.5mcg -) 2 puff IH BID [facility] Last Admin: 01/05/18 22:23 Dose: 2 puff Diltiazem HCl (Cardizem Injection -) 10 mg IVPUSH Q4H PRN PRN Reason: HR > 110 Last Admin: 01/04/18 01:15 Dose: 10 mg Folic Acid (Folic Acid -) 1 mg PO DAILY [facility] Last Admin: 01/05/18 10:06 Dose: 1 mg Gabapentin (Neurontin -) 100 mg PO TID [facility] Last Admin: 01/06/18 06:04 Dose: 100 mg Heparin Sodium (Porcine) (Heparin -) 1,000 unit IVPUSH PRN PRN PRN Reason: Heparin Last Admin: 01/06/18 01:48 Dose: 1,000 unit Heparin Sodium (Porcine) (Heparin -) 5,000 unit IVPUSH PRN PRN PRN Reason: Heparin Last Admin: 01/05/18 18:37 Dose: 5,000 unit HEPARIN SOD,PORK IN 0.45% NACL (Heparin-1/2ns 25,000 Units/500) 25,000 units in 500 mls @ 20 mls/hr IVPB TITR [facility]; Protocol Last Titration: 01/06/18 01:49 Dose: 1,950 units/hr, 39 mls/hr Insulin Aspart (Novolog Vial) 5 units SQ TIDAC [facility] Last Admin: 01/06/18 06:05 Dose: 5 units Insulin Aspart (Novolog Vial Sliding Scale -) 1 vial SQ TIDAC [facility]; Protocol Last Admin: 01/06/18 06:05 Dose: 2 units Insulin Detemir (Levemir Vial) 33 units SQ HS [facility] Last Admin: 01/05/18 22:25 Dose: 33 units Lisinopril (Prinivil) 10 mg PO DAILY [facility] Metoprolol Tartrate (Lopressor -) 50 mg PO TID [facility] Last Admin: 01/06/18 06:04 Dose: 50 mg Multivit/Ca Carb/B Cmplx/FA/Prenat (Nephro-Essie -) 1 tablet PO DAILY [facility] Last Admin: 01/05/18 10:07 Dose: 1 tablet Oxycodone HCl (Roxicodone -) 5 mg PO Q6H PRN PRN Reason: PAIN SCALE 6 -10 Last Admin: 01/05/18 22:25 Dose: 5 mg Polyethylene Glycol (Miralax (For Daily Use) -) 17 gm PO BID [facility] Last Admin: 01/05/18 22:25 Dose: 17 gm Polysaccharide Iron Complex (Niferex-150 -) 150 mg PO DAILY [facility] Last Admin: 01/05/18 10:06 Dose: 150 mg Ranitidine HCl (Zantac -) 150 mg PO DAILY [facility] Last Admin: 01/05/18 10:06 Dose: 150 mg Senna (Senna -) 2 tab PO HS [facility] Last Admin: 01/05/18 22:24 Dose: 2 tab Silver Sulfadiazine (Silvadene -) 1 applic TP BID [facility] Last Admin: 01/05/18 22:34 Dose: 1 applic Simethicone (Mylicon -) 80 mg PO Q6H PRN PRN Reason: DYSPEPSIA Last Admin: 01/06/18 01:57 Dose: 80 mg Warfarin Sodium (Coumadin -) 7.5 mg PO DAILY@1800 [facility] Last Admin: 01/05/18 17:17 Dose: 7.5 mg CBC, BMP 01/06/18 10:00 01/04/18 06:00 INR, PTT INR 1.65 (0.83-1.09) H 01/05/18 05:30 Today INR -- Pending. Physical Exam lying in bed. awake/ comfortable. S1 S2 Irregular Lungs decreased Abd- soft, obese, NT , BS+ ext-- trace edema Neuro- alert/ awake PLAN- on Heparin Gtt-- INR is subtherapeutic d/c heparin drip when inr 2 or above unable to do imaging to R/O PE as she can not fit into CT scan rate is uncontrolled monitor cardiology to follow will follow discussed with nursing staff Problem List - Problems (1) End stage renal disease on dialysis Code(s): N18.6 - END STAGE RENAL DISEASE; Z99.2 - DEPENDENCE ON RENAL DIALYSIS (2) Afib Code(s): I48.91 - UNSPECIFIED ATRIAL FIBRILLATION Qualifiers: Atrial fibrillation type: persistent Qualified Code(s): I48.1 - Persistent atrial fibrillation (3) Anemia Code(s): D64.9 - ANEMIA, UNSPECIFIED Qualifiers: Anemia type: due to chronic kidney disease Chronic kidney disease stage: on chronic dialysis Qualified Code(s): N18.6 - End stage renal disease; D63.1 - Anemia in chronic kidney disease; Z99.2 - Dependence on renal dialysis (4) Anticoagulated on Coumadin Code(s): Z51.81 - ENCOUNTER FOR THERAPEUTIC DRUG LEVEL MONITORING; Z79.01 - ALF (CURRENT) USE OF 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 (5) CHF (congestive heart failure) Code(s): I50.9 - HEART FAILURE, UNSPECIFIED (6) COPD (chronic obstructive pulmonary disease) Code(s): J44.9 - CHRONIC OBSTRUCTIVE PULMONARY DISEASE, UNSPECIFIED (7) Diabetes mellitus Code(s): E11.9 - TYPE 2 DIABETES MELLITUS WITHOUT COMPLICATIONS Qualifiers: Diabetes mellitus type: type 2 Diabetes mellitus complication status: with kidney complications Diabetes mellitus complication detail: with chronic kidney disease Chronic kidney disease stage: on chronic dialysis (8) Functional quadriplegia Code(s): R53.2 - FUNCTIONAL QUADRIPLEGIA (9) Morbid obesity Code(s): E66.01 - MORBID (SEVERE) OBESITY DUE TO EXCESS CALORIES
[2018-01-06 11:09] LABS: ANION GAP 11 MMOL/L (8-16); BLOOD UREA NITROGEN 29 mg/dL (7-18); CALCIUM 8.4 mg/dL (8.5-10.1); CHLORIDE 103 mmol/L (98-107); CO2 28 mmol/L (21-32); CREATININE 3.4 mg/dL (0.55-1.3); GLUCOSE,RANDOM 147 mg/dL (74-106); POTASSIUM 4.4 mmol/L (3.5-5.1); SODIUM 142 mmol/L (136-145)
--- NOTE | 2018-01-06 11:26 | PN ---
Progress Note, Physician History of Present Illness: Episodes of rapid paroxysmal afib. Denies chest pain or dyspnea. Off abx, cx negative. - Current Medication List Current Medications: Active Medications Acetaminophen (Tylenol -) 325 mg PO Q6H PRN PRN Reason: PAIN 6-10 Last Admin: 01/05/18 22:24 Dose: 325 mg Atorvastatin Calcium (Lipitor -) 10 mg PO HS [facility] Last Admin: 01/05/18 22:24 Dose: 10 mg Budesonide/Formoterol Fumarate (Symbicort 160/4.5mcg -) 2 puff IH BID [facility] Last Admin: 01/05/18 22:23 Dose: 2 puff Diltiazem HCl (Cardizem Injection -) 10 mg IVPUSH Q4H PRN PRN Reason: HR > 110 Last Admin: 01/04/18 01:15 Dose: 10 mg Folic Acid (Folic Acid -) 1 mg PO DAILY [facility] Last Admin: 01/05/18 10:06 Dose: 1 mg Gabapentin (Neurontin -) 100 mg PO TID [facility] Last Admin: 01/06/18 06:04 Dose: 100 mg Heparin Sodium (Porcine) (Heparin -) 1,000 unit IVPUSH PRN PRN PRN Reason: Heparin Last Admin: 01/06/18 01:48 Dose: 1,000 unit Heparin Sodium (Porcine) (Heparin -) 5,000 unit IVPUSH PRN PRN PRN Reason: Heparin Last Admin: 01/05/18 18:37 Dose: 5,000 unit HEPARIN SOD,PORK IN 0.45% NACL (Heparin-1/2ns 25,000 Units/500) 25,000 units in 500 mls @ 20 mls/hr IVPB TITR [facility]; Protocol Last Titration: 01/06/18 01:49 Dose: 1,950 units/hr, 39 mls/hr Insulin Aspart (Novolog Vial) 5 units SQ TIDAC [facility] Last Admin: 01/06/18 06:05 Dose: 5 units Insulin Aspart (Novolog Vial Sliding Scale -) 1 vial SQ TIDAC [facility]; Protocol Last Admin: 01/06/18 06:05 Dose: 2 units Insulin Detemir (Levemir Vial) 33 units SQ HS [facility] Last Admin: 01/05/18 22:25 Dose: 33 units Lisinopril (Prinivil) 10 mg PO DAILY [facility] Metoprolol Tartrate (Lopressor -) 50 mg PO TID [facility] Last Admin: 01/06/18 06:04 Dose: 50 mg Multivit/Ca Carb/B Cmplx/FA/Prenat (Nephro-Essie -) 1 tablet PO DAILY [facility] Last Admin: 01/05/18 10:07 Dose: 1 tablet Oxycodone HCl (Roxicodone -) 5 mg PO Q6H PRN PRN Reason: PAIN SCALE 6 -10 Last Admin: 01/05/18 22:25 Dose: 5 mg Polyethylene Glycol (Miralax (For Daily Use) -) 17 gm PO BID [facility] Last Admin: 01/05/18 22:25 Dose: 17 gm Polysaccharide Iron Complex (Niferex-150 -) 150 mg PO DAILY [facility] Last Admin: 01/05/18 10:06 Dose: 150 mg Ranitidine HCl (Zantac -) 150 mg PO DAILY [facility] Last Admin: 01/05/18 10:06 Dose: 150 mg Senna (Senna -) 2 tab PO HS [facility] Last Admin: 01/05/18 22:24 Dose: 2 tab Silver Sulfadiazine (Silvadene -) 1 applic TP BID [facility] Last Admin: 01/05/18 22:34 Dose: 1 applic Simethicone (Mylicon -) 80 mg PO Q6H PRN PRN Reason: DYSPEPSIA Last Admin: 01/06/18 01:57 Dose: 80 mg Warfarin Sodium (Coumadin -) 7.5 mg PO DAILY@1800 [facility] Last Admin: 01/05/18 17:17 Dose: 7.5 mg - Objective Vital Signs: Vital Signs Temperature 98.8 F 01/06/18 09:50 Pulse Rate 68 01/06/18 10:25 Respiratory Rate 18 01/06/18 10:25 Blood Pressure 109/78 01/06/18 10:25 O2 Sat by Pulse Oximetry (%) 100 01/05/18 22:00 Constitutional: Yes: No Distress, Calm Neck: Yes: Supple Cardiovascular: Yes: Tachycardia, Pulse Irregular Respiratory: Yes: Regular, Diminished Gastrointestinal: Yes: Normal Bowel Sounds, Soft, Abdomen, Obese Edema: Yes Labs: CBC, BMP 01/06/18 10:00 INR, PTT INR 1.65 (0.83-1.09) H 01/05/18 05:30 - ....Imaging EKG: Report Reviewed (Tele: PAF with [facility]) Problem List - Problems (1) End stage renal disease on dialysis Code(s): N18.6 - END STAGE RENAL DISEASE; Z99.2 - DEPENDENCE ON RENAL DIALYSIS (2) Sepsis Code(s): A41.9 - SEPSIS, UNSPECIFIED ORGANISM (3) Afib Code(s): I48.91 - UNSPECIFIED ATRIAL FIBRILLATION Qualifiers: Atrial fibrillation type: persistent Qualified Code(s): I48.1 - Persistent atrial fibrillation (4) Anemia Code(s): D64.9 - ANEMIA, UNSPECIFIED Qualifiers: Anemia type: due to chronic kidney disease Chronic kidney disease stage: on chronic dialysis Qualified Code(s): N18.6 - End stage renal disease; D63.1 - Anemia in chronic kidney disease; Z99.2 - Dependence on renal dialysis (5) Anticoagulated on Coumadin Code(s): Z51.81 - ENCOUNTER FOR THERAPEUTIC DRUG LEVEL MONITORING; Z79.01 - CARDIOLOGY CLINICAL CONSULTANT (CURRENT) USE OF 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 (6) Diabetes mellitus Code(s): E11.9 - TYPE 2 DIABETES MELLITUS WITHOUT COMPLICATIONS Qualifiers: Diabetes mellitus type: type 2 Diabetes mellitus complication status: with kidney complications Diabetes mellitus complication detail: with chronic kidney disease Chronic kidney disease stage: on chronic dialysis (7) Diastolic CHF, acute on chronic Code(s): I50.33 - ACUTE ON CHRONIC DIASTOLIC (CONGESTIVE) HEART FAILURE (8) Morbid obesity Code(s): E66.01 - MORBID (SEVERE) OBESITY DUE TO EXCESS CALORIES (9) Sleep apnea in adult Code(s): G47.33 - OBSTRUCTIVE SLEEP APNEA (ADULT) (PEDIATRIC) Assessment/Plan echo 10/2017 TDS, normal LV fxn echo 09/2015 tds echo 01/2013: tds, nl lvef, valves not seen well cath 11/2007: normal cors 1. Resolved sepsis syndrome - cx NGTD 2. Paroxysmal afib with improved rate-control on coumadin with subtherapeutic INR 3. Chronic diastolic failure 4. HTN 5. Hyperlipidemia 6. ESRD on HD 7. Morbid obesity, with OSAS/OHS suspected 8. Anemia PLAN: 1. Heparin gtt-> Coumadin as per INR 2-3 with GI protection 2. Increase Lopressor 50 qid, may need to add cardizem for additional rate- control 3. Increased lisinopril 10 qd, lmdur 60 qd d/mildred 4. HD/UF per renal 5. Continue Lipitor 10 qhs 6. Off abx, adjusted for ESRD per ID, bowel regimen
[2018-01-06] MEDS: ALBUMIN HUMAN 25% 12.5 GM/50 ML VIAL IVPB SCH ×3 (11:30→13:31)
[2018-01-06 12:07] LABS: INR 1.98 (0.83-1.09); PROTHROMBIN TIME (PATIENT) 23.5 SEC (9.7-13.0)
[2018-01-06] MEDS ORDERED: PT OWN MED DRAWER 7, Y5N ONE ×2 (12:54→14:49)
[2018-01-06] MEDS: POLYETHYLENE GLYCOL 3350 119 GM BTL PO SCH ×2 (13:13→21:06)
[2018-01-06] MEDS: FOLIC ACID 1 MG TABLET (FP) PO SCH (13:13)
[2018-01-06] MEDS: IRON POLYSACCHARIDES 150 MG CAPSULE PO SCH (13:14)
[2018-01-06] MEDS: VITAMIN B COMP W-C 1 EA TABLET PO SCH (13:14)
[2018-01-06] MEDS: LISINOPRIL 10 MG TABLET (FP) PO SCH (13:14)
[2018-01-06] MEDS: RANITIDINE HCL 150 MG TABLET (FP) PO SCH (13:14)
[2018-01-06] MEDS: oxyCODONE HCL 5 MG TABLET PO PRN ×2 (13:16→20:26)
[2018-01-06] MEDS: ACETAMINOPHEN 325 MG TABLET (FP) PO PRN ×2 (13:17→20:26)
[2018-01-06] MEDS: dilTIAZem HCL 50 MG/10 ML - 10 ML VIAL IVPUSH PRN (13:24)
[2018-01-06] MEDS: BUDESONIDE/FORMETEROL FUMARATE 160/4.5 mcg INHALER IH SCH ×2 (13:24→21:04)
[2018-01-06] MEDS: SILVER SULFADIAZINE 1% TOP CREAM 400 GM JAR TP SCH ×2 (13:24→21:04)
--- NOTE | 2018-01-06 13:42 | PN ---
Progress Note, Physician History of Present Illness: Pt seen and examined at bedside. She tolerated HD. She gets short of breath when she is tachycardic. Her heart rate is not controlled. - Current Medication List Current Medications: Active Medications Acetaminophen (Tylenol -) 325 mg PO Q6H PRN PRN Reason: PAIN 6-10 Last Admin: 01/06/18 13:17 Dose: 325 mg Atorvastatin Calcium (Lipitor -) 10 mg PO HS [facility] Last Admin: 01/05/18 22:24 Dose: 10 mg Budesonide/Formoterol Fumarate (Symbicort 160/4.5mcg -) 2 puff IH BID [facility] Last Admin: 01/06/18 13:24 Dose: 2 puff Diltiazem HCl (Cardizem Injection -) 10 mg IVPUSH Q4H PRN PRN Reason: HR > 110 Last Admin: 01/06/18 13:24 Dose: 10 mg Folic Acid (Folic Acid -) 1 mg PO DAILY [facility] Last Admin: 01/06/18 13:13 Dose: 1 mg Gabapentin (Neurontin -) 100 mg PO TID [facility] Last Admin: 01/06/18 13:14 Dose: 100 mg Heparin Sodium (Porcine) (Heparin -) 1,000 unit IVPUSH PRN PRN PRN Reason: Heparin Last Admin: 01/06/18 11:28 Dose: 1,000 unit Heparin Sodium (Porcine) (Heparin -) 5,000 unit IVPUSH PRN PRN PRN Reason: Heparin Last Admin: 01/05/18 18:37 Dose: 5,000 unit HEPARIN SOD,PORK IN 0.45% NACL (Heparin-1/2ns 25,000 Units/500) 25,000 units in 500 mls @ 20 mls/hr IVPB TITR [facility]; Protocol Last Titration: 01/06/18 11:29 Dose: 2,050 units/hr, 41 mls/hr Insulin Aspart (Novolog Vial) 5 units SQ TIDAC [facility] Last Admin: 01/06/18 13:15 Dose: 5 units Insulin Aspart (Novolog Vial Sliding Scale -) 1 vial SQ TIDAC [facility]; Protocol Last Admin: 01/06/18 13:15 Dose: 2 units Insulin Detemir (Levemir Vial) 33 units SQ HS [facility] Last Admin: 01/05/18 22:25 Dose: 33 units Lisinopril (Prinivil) 10 mg PO DAILY [facility] Last Admin: 01/06/18 13:14 Dose: 10 mg Metoprolol Tartrate (Lopressor -) 50 mg PO QID [facility] Last Admin: 01/06/18 13:14 Dose: 50 mg Multivit/Ca Carb/B Cmplx/FA/Prenat (Nephro-Essie -) 1 tablet PO DAILY [facility] Last Admin: 01/06/18 13:14 Dose: 1 tablet Oxycodone HCl (Roxicodone -) 5 mg PO Q6H PRN PRN Reason: PAIN SCALE 6 -10 Last Admin: 01/06/18 13:16 Dose: 5 mg Polyethylene Glycol (Miralax (For Daily Use) -) 17 gm PO BID [facility] Last Admin: 01/06/18 13:13 Dose: 17 gm Polysaccharide Iron Complex (Niferex-150 -) 150 mg PO DAILY [facility] Last Admin: 01/06/18 13:14 Dose: 150 mg Ranitidine HCl (Zantac -) 150 mg PO DAILY [facility] Last Admin: 01/06/18 13:14 Dose: 150 mg Senna (Senna -) 2 tab PO HS [facility] Last Admin: 01/05/18 22:24 Dose: 2 tab Silver Sulfadiazine (Silvadene -) 1 applic TP BID [facility] Last Admin: 01/06/18 13:24 Dose: 1 applic Simethicone (Mylicon -) 80 mg PO Q6H PRN PRN Reason: DYSPEPSIA Last Admin: 01/06/18 01:57 Dose: 80 mg Warfarin Sodium (Coumadin -) 7.5 mg PO DAILY@1800 [facility] Last Admin: 01/05/18 17:17 Dose: 7.5 mg - Objective Vital Signs: Vital Signs Temperature 97.4 F L 01/06/18 10:00 Pulse Rate 85 01/06/18 13:00 Respiratory Rate 18 01/06/18 13:00 Blood Pressure 135/80 01/06/18 13:00 O2 Sat by Pulse Oximetry (%) 99 01/06/18 10:00 Constitutional: Yes: Calm Eyes: Yes: Conjunctiva Clear HENT: Yes: Atraumatic Neck: Yes: Supple Cardiovascular: Yes: S1, S2 Respiratory: Yes: On Nasal O2 Gastrointestinal: Yes: Soft, Abdomen, Obese Genitourinary: Yes: Incontinence Musculoskeletal: Yes: Muscle Weakness Edema: Yes Edema: LLE: 1+, RLE: 1+ Neurological: Yes: Oriented Psychiatric: Yes: Oriented Labs: CBC, BMP 01/06/18 10:00 01/06/18 10:00 INR, PTT INR 1.98 (0.83-1.09) H 01/06/18 10:00 Problem List - Problems (1) End stage renal disease on dialysis Code(s): N18.6 - END STAGE RENAL DISEASE; Z99.2 - DEPENDENCE ON RENAL DIALYSIS Assessment/Plan Current Medications Generic Name Dose Route Start Last Admin Trade Name Freq PRN Reason Stop Dose Admin Acetaminophen 325 mg 12/29/17 14:56 01/06/18 13:17 Tylenol - PO 325 mg Q6H PRN Administration PAIN 6-10 Atorvastatin Calcium 10 mg 12/29/17 22:00 01/05/18 22:24 Lipitor - PO 10 mg HS [facility] Administration Budesonide/Formoterol Fumarate 2 puff 12/29/17 22:00 01/06/18 13:24 Symbicort 160/4.5mcg - IH 2 puff BID [facility] Administration Diltiazem HCl 10 mg 01/01/18 04:52 01/06/18 13:24 Cardizem Injection - IVPUSH 10 mg Q4H PRN Administration HR > 110 Folic Acid 1 mg 12/30/17 10:00 01/06/18 13:13 Folic Acid - PO 1 mg DAILY [facility] Administration Gabapentin 100 mg 12/29/17 14:51 01/06/18 13:14 Neurontin - PO 100 mg TID [facility] Administration Heparin Sodium (Porcine) 1,000 unit 01/03/18 13:32 01/06/18 11:28 Heparin - IVPUSH 1,000 unit PRN PRN Administration Heparin Heparin Sodium (Porcine) 5,000 unit 01/03/18 13:32 01/05/18 18:37 Heparin - IVPUSH 5,000 unit PRN PRN Administration Heparin HEPARIN SOD,PORK IN 0.45% NACL 25,000 units in 500 mls @ 20 mls/hr 01/03/18 13 :45 01/06/18 11:29 Heparin-1/2ns 25,000 Units/500 IVPB 2,050 units/hr TITR [facility] 41 mls/hr Titration Protocol 1,000 UNITS/HR Insulin Aspart 5 units 12/29/17 16:30 01/06/18 13:15 Novolog Vial SQ 5 units TIDAC [facility] Administration Insulin Aspart 1 vial 12/29/17 16:30 01/06/18 13:15 Novolog Vial Sliding Scale - SQ 2 units TIDAC [facility] Administration Protocol Insulin Detemir 33 units 12/29/17 22:00 01/05/18 22:25 Levemir Vial SQ 33 units HS [facility] Administration Lisinopril 10 mg 01/05/18 12:13 01/06/18 13:14 Prinivil PO 10 mg DAILY [facility] Administration Metoprolol Tartrate 50 mg 01/06/18 14:00 01/06/18 13:14 Lopressor - PO 50 mg QID [facility] Administration Multivit/Ca Carb/B Cmplx/FA/Prenat 1 tablet 12/30/17 10:00 01/06/18 13:14 Nephro-Essie - PO 1 tablet DAILY [facility] Administration Oxycodone HCl 5 mg 01/02/18 12:24 01/06/18 13:16 Roxicodone - PO 5 mg Q6H PRN Administration PAIN SCALE 6 -10 Polyethylene Glycol 17 gm 01/01/18 22:00 01/06/18 13:13 Miralax (For Daily Use) - PO 17 gm BID [facility] Administration Polysaccharide Iron Complex 150 mg 12/30/17 10:00 01/06/18 13:14 Niferex-150 - PO 150 mg DAILY [facility] Administration Ranitidine HCl 150 mg 12/30/17 10:00 01/06/18 13:14 Zantac - PO 150 mg DAILY [facility] Administration Senna 2 tab 12/31/17 22:00 01/05/18 22:24 Senna - PO 2 tab HS [facility] Administration Silver Sulfadiazine 1 applic 12/29/17 22:00 01/06/18 13:24 Silvadene - TP 1 applic BID [facility] Administration Simethicone 80 mg 12/29/17 14:00 01/06/18 01:57 Mylicon - PO 80 mg Q6H PRN Administration DYSPEPSIA Warfarin Sodium 7.5 mg 01/05/18 18:00 01/05/18 17:17 Coumadin - PO 7.5 mg DAILY@1800 [facility] Administration Impression 1. ESRD 2. obesity 3. hyperlipidemia 4. HTN 5. DM 6. CHF 7. CAD 8. anemia 9. a-fib 10. iron deficiency 11. r/o TIA 12. sepsis Plan - HD today - rate control per cardio - epogen for anemia, monitor hg - monitor coags on heparin - titrate lisinopril dose as tolerated, depending on BP - next HD on Tuesday - cardio input appreciated - will follow Dr Capps
[2018-01-06] MEDS: WARFARIN NA 7.5 MG TABLET (FP) PO SCH (17:15)
[2018-01-06] MEDS: HEPARIN SOD,PORK IN 0.45% NACL 25,000 UNITS/500 ML INFUS.BAG IVPB SCH (18:50)
[2018-01-06] MEDS: SENNOSIDES 8.6MG TABLET (FP) PO SCH (21:05)
[2018-01-06] MEDS: ATORVASTATIN CA 10 MG TABLET (FP) PO SCH (21:05)
[2018-01-06] MEDS: INSULIN (LEVEMIR) 100 UNITS/ML UNITS SQ SCH (21:06)
[2018-01-07] MEDS ORDERED: PT OWN MED DRAWER 7, Y5N ONE ×5 (03:12→23:00)
[2018-01-07] MEDS: HEPARIN SOD,PORK IN 0.45% NACL 25,000 UNITS/500 ML INFUS.BAG IVPB SCH (03:31)
[2018-01-07] MEDS: GABAPENTIN 100 MG CAPSULE (FP) PO SCH ×3 (06:19→22:58)
[2018-01-07] MEDS: INSULIN SLIDING SCALE (NOVOLOG) 1 VIAL SQ SCH ×3 (06:21→17:20)
[2018-01-07] MEDS: INSULIN (NOVOLOG) ASPART 100 UNITS/ML 10ML VIAL SQ SCH ×3 (06:21→17:20)
[2018-01-07 07:15] LABS: HEMATOCRIT 27.2 % (32.4-45.2); HEMOGLOBIN 8.6 GM/dL (10.7-15.3); MCH 28.1 pg (25.7-33.7); MCHC 31.6 g/dl (32.0-36.0); MEAN PLT VOLUME 7.9 fl (7.5-11.1); PLATELET COUNT 155 K/MM3 (134-434); RBC 3.06 M/mm3 (3.60-5.2); RDW 16.5 % (11.6-15.6); WHITE BLOOD COUNT 9.1 K/mm3 (4.0-10.0)
[2018-01-07 07:38] LABS: INR 2.32 (0.83-1.09); PROTHROMBIN TIME (PATIENT) 27.6 SEC (9.7-13.0)
[2018-01-07] MEDS ORDERED: INSULIN (NOVOLOG) ASPART 100 UNITS/ML 10ML VIAL ONE (07:49)
[2018-01-07] MEDS: RANITIDINE HCL 150 MG TABLET (FP) PO SCH (09:04)
[2018-01-07] MEDS: POLYETHYLENE GLYCOL 3350 119 GM BTL PO SCH ×2 (09:04→22:57)
[2018-01-07] MEDS: LISINOPRIL 10 MG TABLET (FP) PO SCH (09:04)
[2018-01-07] MEDS: FOLIC ACID 1 MG TABLET (FP) PO SCH (09:04)
[2018-01-07] MEDS: VITAMIN B COMP W-C 1 EA TABLET PO SCH (09:04)
[2018-01-07] MEDS: IRON POLYSACCHARIDES 150 MG CAPSULE PO SCH (09:04)
[2018-01-07] MEDS: BUDESONIDE/FORMETEROL FUMARATE 160/4.5 mcg INHALER IH SCH ×2 (09:05→23:00)
[2018-01-07] MEDS: METOPROLOL TARTRATE 50 MG TABLET (FP) PO SCH ×4 (09:25→22:57)
--- NOTE | 2018-01-07 11:27 | PN ---
Progress Note, Physician Chief Complaint: Events note Not in distress History of Present Illness: Patient was seen and examined. Awake and alert. Chart was reviewed Denies chest pain, SOB or palpitation - Current Medication List Current Medications: Active Medications Acetaminophen (Tylenol -) 325 mg PO Q6H PRN PRN Reason: PAIN 6-10 Last Admin: 01/06/18 20:26 Dose: 325 mg Atorvastatin Calcium (Lipitor -) 10 mg PO [facility] Last Admin: 01/06/18 21:05 Dose: 10 mg Budesonide/Formoterol Fumarate (Symbicort 160/4.5mcg -) 2 puff IH BID [facility] Last Admin: 01/07/18 09:05 Dose: 2 puff Diltiazem HCl (Cardizem Injection -) 10 mg IVPUSH Q4H PRN PRN Reason: HR > 110 Last Admin: 01/06/18 13:24 Dose: 10 mg Folic Acid (Folic Acid -) 1 mg PO DAILY [facility] Last Admin: 01/07/18 09:04 Dose: 1 mg Gabapentin (Neurontin -) 100 mg PO TID [facility] Last Admin: 01/07/18 06:19 Dose: 100 mg Insulin Aspart (Novolog Vial) 5 units SQ TIDAC [facility] Last Admin: 01/07/18 06:21 Dose: 5 units Insulin Aspart (Novolog Vial Sliding Scale -) 1 vial SQ TIDAC [facility]; Protocol Last Admin: 01/07/18 06:21 Dose: 2 units Insulin Detemir (Levemir Vial) 33 units SQ [facility] Last Admin: 01/06/18 21:06 Dose: 33 units Lisinopril (Prinivil) 10 mg PO DAILY [facility] Last Admin: 01/07/18 09:04 Dose: 10 mg Metoprolol Tartrate (Lopressor -) 50 mg PO QID [facility] Last Admin: 01/07/18 09:25 Dose: 50 mg Multivit/Ca Carb/B Cmplx/FA/Prenat (Nephro-Essie -) 1 tablet PO DAILY [facility] Last Admin: 01/07/18 09:04 Dose: 1 tablet Oxycodone HCl (Roxicodone -) 5 mg PO Q6H PRN PRN Reason: PAIN SCALE 6 -10 Last Admin: 01/06/18 20:26 Dose: 5 mg Polyethylene Glycol (Miralax (For Daily Use) -) 17 gm PO BID [facility] Last Admin: 01/07/18 09:04 Dose: 17 gm Polysaccharide Iron Complex (Niferex-150 -) 150 mg PO DAILY [facility] Last Admin: 01/07/18 09:04 Dose: 150 mg Ranitidine HCl (Zantac -) 150 mg PO DAILY [facility] Last Admin: 01/07/18 09:04 Dose: 150 mg Senna (Senna -) 2 tab PO HS [facility] Last Admin: 01/06/18 21:05 Dose: 2 tab Silver Sulfadiazine (Silvadene -) 1 applic TP BID [facility] Last Admin: 01/06/18 21:04 Dose: 1 applic Simethicone (Mylicon -) 80 mg PO Q6H PRN PRN Reason: DYSPEPSIA Last Admin: 01/06/18 21:05 Dose: 80 mg Warfarin Sodium (Coumadin -) 7.5 mg PO DAILY@1800 [facility] Last Admin: 01/06/18 17:15 Dose: 7.5 mg - Objective Vital Signs: Vital Signs Temperature 98.1 F 01/07/18 10:00 Pulse Rate 68 01/07/18 10:00 Respiratory Rate 18 01/07/18 10:00 Blood Pressure 104/57 L 01/07/18 10:00 O2 Sat by Pulse Oximetry (%) 100 01/07/18 10:00 HENT: Yes: Atraumatic Neck: Yes: Supple Cardiovascular: Yes: Pulse Irregular, S1, S2 Respiratory: Yes: CTA Bilaterally Gastrointestinal: Yes: Normal Bowel Sounds, Soft. No: Tenderness Edema: No Labs: CBC, BMP 01/07/18 06:00 01/06/18 10:00 INR, PTT INR 2.32 (0.83-1.09) H 01/07/18 06:00 Problem List - Problems (1) End stage renal disease on dialysis Code(s): N18.6 - END STAGE RENAL DISEASE; Z99.2 - DEPENDENCE ON RENAL DIALYSIS (2) Sepsis Code(s): A41.9 - SEPSIS, UNSPECIFIED ORGANISM (3) Acute exacerbation of chronic obstructive pulmonary disease Code(s): J44.1 - CHRONIC OBSTRUCTIVE PULMONARY DISEASE W (ACUTE) EXACERBATION (4) Acute on chronic renal insufficiency Code(s): N28.9 - DISORDER OF KIDNEY AND URETER, UNSPECIFIED; N18.9 - CHRONIC KIDNEY DISEASE, UNSPECIFIED (5) Acute on chronic respiratory failure with hypoxia and hypercapnia Code(s): J96.21 - ACUTE AND CHRONIC RESPIRATORY FAILURE WITH HYPOXIA; J96.22 - ACUTE AND CHRONIC RESPIRATORY FAILURE WITH HYPERCAPNIA (6) Afib Code(s): I48.91 - UNSPECIFIED ATRIAL FIBRILLATION Qualifiers: Atrial fibrillation type: persistent Qualified Code(s): I48.1 - Persistent atrial fibrillation (7) Anemia Code(s): D64.9 - ANEMIA, UNSPECIFIED Qualifiers: Anemia type: due to chronic kidney disease Chronic kidney disease stage: on chronic dialysis Qualified Code(s): N18.6 - End stage renal disease; D63.1 - Anemia in chronic kidney disease; Z99.2 - Dependence on renal dialysis (8) COPD (chronic obstructive pulmonary disease) Code(s): J44.9 - CHRONIC OBSTRUCTIVE PULMONARY DISEASE, UNSPECIFIED (9) Diabetes mellitus Code(s): E11.9 - TYPE 2 DIABETES MELLITUS WITHOUT COMPLICATIONS Qualifiers: Diabetes mellitus type: type 2 Diabetes mellitus complication status: with kidney complications Diabetes mellitus complication detail: with chronic kidney disease Chronic kidney disease stage: on chronic dialysis (10) Diastolic CHF, acute on chronic Code(s): I50.33 - ACUTE ON CHRONIC DIASTOLIC (CONGESTIVE) HEART FAILURE (11) Sleep apnea in adult Code(s): G47.33 - OBSTRUCTIVE SLEEP APNEA (ADULT) (PEDIATRIC) (12) UTI (urinary tract infection) Code(s): N39.0 - URINARY TRACT INFECTION, SITE NOT SPECIFIED Qualifiers: Urinary tract infection type: site unspecified Hematuria presence: without hematuria Qualified Code(s): N39.0 - Urinary tract infection, site not specified Assessment/Plan 1. Resolved sepsis syndrome 2. Paroxysmal AF with improved rate-control 3. Chronic diastolic failure 4. HTN 5. Hyperlipidemia 6. ESRD on HD 7. Morbid obesity with OSAS suspected 8. Anemia PLAN: 1. Heparin drip and Coumadin as per INR 2-3 with GI protection 2. Continue Lopressor 3. Continue Lisinopril 4. HD/UF per renal 5. Continue Lipitor Present therapy Gene Swanson MD
--- NOTE | 2018-01-07 12:07 | PN ---
Progress Note (short form) - Note Progress Note: pt seen/ examined comfortable still has periods of tachyarrythmia on monitor inr therapeutic-- heparin d/c ed Vital Signs Temp 98.1 F 01/07/18 10:00 Pulse 68 01/07/18 10:00 Resp 18 01/07/18 10:00 BP 104/57 L 01/07/18 10:00 Pulse Ox 100 01/07/18 10:00 Intake & Output 01/06/18 01/07/18 01/07/18 23:59 11:59 23:59 Intake Total 582 1016 Balance 582 1016 Intake: IV 482 516 HEPARIN-1/2NS 25,000 482 516 UNITS/500 25,000 units In 500 ml @ 1,000 UNITS/HR 20 mls/hr IVPB TITR [facility] Rx#:[id number] Oral 100 500 Other: Voiding Method Incontinent Incontinent # Unmeasured Voids Void 1 1 Bowel Movement Yes No INR, PTT INR 2.32 (0.83-1.09) H 01/07/18 06:00 CBC, BMP 01/07/18 06:00 01/06/18 10:00 Physical Exam lying in bed. awake/ comfortable. S1 S2 Irregular Lungs decreased Abd- soft, obese, NT , BS+ ext-- trace edema Neuro- alert/ awake PLAN- continue to have rapid afib off heparin inr - ok unable to do imaging to R/O PE as she can not fit into CT scan rate is uncontrolled monitor cardiology to follow-- will discuss will follow discussed with nursing staff also. Problem List - Problems (1) End stage renal disease on dialysis Code(s): N18.6 - END STAGE RENAL DISEASE; Z99.2 - DEPENDENCE ON RENAL DIALYSIS (2) Afib Code(s): I48.91 - UNSPECIFIED ATRIAL FIBRILLATION Qualifiers: Atrial fibrillation type: persistent Qualified Code(s): I48.1 - Persistent atrial fibrillation (3) Anemia Code(s): D64.9 - ANEMIA, UNSPECIFIED Qualifiers: Anemia type: due to chronic kidney disease Chronic kidney disease stage: on chronic dialysis Qualified Code(s): N18.6 - End stage renal disease; D63.1 - Anemia in chronic kidney disease; Z99.2 - Dependence on renal dialysis (4) Anticoagulated on Coumadin Code(s): Z51.81 - ENCOUNTER FOR THERAPEUTIC DRUG LEVEL MONITORING; Z79.01 - [employer] (CURRENT) USE OF 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 (5) CHF (congestive heart failure) Code(s): I50.9 - HEART FAILURE, UNSPECIFIED (6) COPD (chronic obstructive pulmonary disease) Code(s): J44.9 - CHRONIC OBSTRUCTIVE PULMONARY DISEASE, UNSPECIFIED (7) Diabetes mellitus Code(s): E11.9 - TYPE 2 DIABETES MELLITUS WITHOUT COMPLICATIONS Qualifiers: Diabetes mellitus type: type 2 Diabetes mellitus complication status: with kidney complications Diabetes mellitus complication detail: with chronic kidney disease Chronic kidney disease stage: on chronic dialysis (8) Functional quadriplegia Code(s): R53.2 - FUNCTIONAL QUADRIPLEGIA (9) Morbid obesity Code(s): E66.01 - MORBID (SEVERE) OBESITY DUE TO EXCESS CALORIES
[2018-01-07] MEDS: SILVER SULFADIAZINE 1% TOP CREAM 400 GM JAR TP SCH ×2 (13:13→22:59)
[2018-01-07] MEDS: ACETAMINOPHEN 325 MG TABLET (FP) PO PRN (17:20)
[2018-01-07] MEDS: oxyCODONE HCL 5 MG TABLET PO PRN (17:21)
[2018-01-07] MEDS: WARFARIN NA 7.5 MG TABLET (FP) PO SCH (17:42)
[2018-01-07] MEDS: INSULIN (LEVEMIR) 100 UNITS/ML UNITS SQ SCH (22:55)
[2018-01-07] MEDS: SENNOSIDES 8.6MG TABLET (FP) PO SCH (22:56)
[2018-01-07] MEDS: ATORVASTATIN CA 10 MG TABLET (FP) PO SCH (22:57)
[2018-01-08] MEDS: INSULIN (NOVOLOG) ASPART 100 UNITS/ML 10ML VIAL SQ SCH ×3 (06:39→17:18)
[2018-01-08] MEDS: GABAPENTIN 100 MG CAPSULE (FP) PO SCH ×3 (06:39→21:16)
[2018-01-08] MEDS: INSULIN SLIDING SCALE (NOVOLOG) 1 VIAL SQ SCH ×3 (06:40→17:02)
[2018-01-08 07:32] LABS: HEMATOCRIT 27.5 % (32.4-45.2); HEMOGLOBIN 8.8 GM/dL (10.7-15.3); MCH 28.4 pg (25.7-33.7); MCHC 32.1 g/dl (32.0-36.0); MEAN CELL VOLUME 88.7 fl (80-96); MEAN PLT VOLUME 7.9 fl (7.5-11.1); PLATELET COUNT 151 K/MM3 (134-434); RDW 16.2 % (11.6-15.6); WHITE BLOOD COUNT 8.8 K/mm3 (4.0-10.0)
[2018-01-08 08:53] LABS: INR 2.81 (0.83-1.09); PROTHROMBIN TIME (PATIENT) 33.5 SEC (9.7-13.0)
[2018-01-08] MEDS ORDERED: PT OWN MED DRAWER 7, Y5N ONE ×3 (09:43→21:12)
[2018-01-08] MEDS: FOLIC ACID 1 MG TABLET (FP) PO SCH (09:54)
[2018-01-08] MEDS: LISINOPRIL 10 MG TABLET (FP) PO SCH (09:54)
[2018-01-08] MEDS: RANITIDINE HCL 150 MG TABLET (FP) PO SCH (09:54)
[2018-01-08] MEDS: IRON POLYSACCHARIDES 150 MG CAPSULE PO SCH (09:55)
[2018-01-08] MEDS: POLYETHYLENE GLYCOL 3350 119 GM BTL PO SCH ×2 (09:55→21:17)
[2018-01-08] MEDS: VITAMIN B COMP W-C 1 EA TABLET PO SCH (09:55)
[2018-01-08] MEDS: BUDESONIDE/FORMETEROL FUMARATE 160/4.5 mcg INHALER IH SCH ×2 (09:56→21:16)
[2018-01-08] MEDS: METOPROLOL TARTRATE 50 MG TABLET (FP) PO SCH ×4 (09:56→21:15)
[2018-01-08] MEDS: SILVER SULFADIAZINE 1% TOP CREAM 400 GM JAR TP SCH ×2 (09:56→21:21)
[2018-01-08] MEDS: ACETAMINOPHEN 325 MG TABLET (FP) PO PRN ×2 (10:01→21:15)
[2018-01-08] MEDS: oxyCODONE HCL 5 MG TABLET PO PRN (10:05)
--- NOTE | 2018-01-08 15:46 | PN ---
Progress Note (short form) - Note Progress Note: pt seen/ examined. comfortable grand son at bedside no new issues Vital Signs Temp 98.6 F 01/08/18 14:31 Pulse 79 01/08/18 14:31 Resp 20 01/08/18 14:31 BP 135/62 01/08/18 14:31 Pulse Ox 98 01/08/18 10:00 Intake & Output 01/07/18 01/08/18 01/08/18 23:59 11:59 23:59 Intake Total 400 650 Balance 400 650 Intake: Oral 400 650 Other: Voiding Method Incontinent Incontinent # Unmeasured Voids Void 1 1 Bowel Movement Yes # Bowel Movements 1 Active Medications Acetaminophen (Tylenol -) 325 mg PO Q6H PRN PRN Reason: PAIN 6-10 Last Admin: 01/08/18 10:01 Dose: 325 mg Atorvastatin Calcium (Lipitor -) 10 mg PO [facility] Last Admin: 01/07/18 22:57 Dose: 10 mg Budesonide/Formoterol Fumarate (Symbicort 160/4.5mcg -) 2 puff IH BID [facility] Last Admin: 01/08/18 09:56 Dose: 2 puff Diltiazem HCl (Cardizem Injection -) 10 mg IVPUSH Q4H PRN PRN Reason: HR > 110 Last Admin: 01/06/18 13:24 Dose: 10 mg Folic Acid (Folic Acid -) 1 mg PO DAILY [facility] Last Admin: 01/08/18 09:54 Dose: 1 mg Gabapentin (Neurontin -) 100 mg PO TID [facility] Last Admin: 01/08/18 14:07 Dose: 100 mg Insulin Aspart (Novolog Vial) 5 units SQ TIDAC [facility] Last Admin: 01/08/18 12:17 Dose: 5 units Insulin Aspart (Novolog Vial Sliding Scale -) 1 vial SQ TIDAC [facility]; Protocol Last Admin: 01/08/18 11:35 Dose: Not Given Insulin Detemir (Levemir Vial) 33 units SQ [facility] Last Admin: 01/07/18 22:55 Dose: 33 units Lisinopril (Prinivil) 10 mg PO DAILY [facility] Last Admin: 01/08/18 09:54 Dose: 10 mg Metoprolol Tartrate (Lopressor -) 50 mg PO QID [facility] Last Admin: 01/08/18 14:07 Dose: 50 mg Multivit/Ca Carb/B Cmplx/FA/Prenat (Nephro-Essie -) 1 tablet PO DAILY [facility] Last Admin: 01/08/18 09:55 Dose: 1 tablet Polyethylene Glycol (Miralax (For Daily Use) -) 17 gm PO BID [facility] Last Admin: 01/08/18 09:55 Dose: 17 gm Polysaccharide Iron Complex (Niferex-150 -) 150 mg PO DAILY [facility] Last Admin: 01/08/18 09:55 Dose: 150 mg Ranitidine HCl (Zantac -) 150 mg PO DAILY [facility] Last Admin: 01/08/18 09:54 Dose: 150 mg Senna (Senna -) 2 tab PO HS [facility] Last Admin: 01/07/18 22:56 Dose: 2 tab Silver Sulfadiazine (Silvadene -) 1 applic TP BID [facility] Last Admin: 01/08/18 09:56 Dose: 1 applic Simethicone (Mylicon -) 80 mg PO Q6H PRN PRN Reason: DYSPEPSIA Last Admin: 01/06/18 21:05 Dose: 80 mg Warfarin Sodium (Coumadin -) 7.5 mg PO DAILY@1800 [facility] Last Admin: 01/07/18 17:42 Dose: 7.5 mg CBC, BMP 01/08/18 06:22 01/06/18 10:00 INR, PTT INR 2.81 (0.83-1.09) H 01/08/18 06:22 Physical Exam lying in bed. awake/ comfortable. S1 S2 Irregular Lungs decreased Abd- soft, obese, NT , BS+ ext-- trace edema Neuro- alert/ awake PLAN- stable monitor for arrythmia unable to do imaging to R/O PE as she can not fit into CT scan rate is uncontrolled monitor cardiology to follow-- d/c planning-- when cleared by cardiology will follow discussed with nursing staff also. Problem List - Problems (1) End stage renal disease on dialysis Code(s): N18.6 - END STAGE RENAL DISEASE; Z99.2 - DEPENDENCE ON RENAL DIALYSIS (2) Afib Code(s): I48.91 - UNSPECIFIED ATRIAL FIBRILLATION Qualifiers: Atrial fibrillation type: persistent Qualified Code(s): I48.1 - Persistent atrial fibrillation (3) Anemia Code(s): D64.9 - ANEMIA, UNSPECIFIED Qualifiers: Anemia type: due to chronic kidney disease Chronic kidney disease stage: on chronic dialysis Qualified Code(s): N18.6 - End stage renal disease; D63.1 - Anemia in chronic kidney disease; Z99.2 - Dependence on renal dialysis (4) Anticoagulated on Coumadin Code(s): Z51.81 - ENCOUNTER FOR THERAPEUTIC DRUG LEVEL MONITORING; Z79.01 - [facility] (CURRENT) USE OF 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 (5) CHF (congestive heart failure) Code(s): I50.9 - HEART FAILURE, UNSPECIFIED (6) COPD (chronic obstructive pulmonary disease) Code(s): J44.9 - CHRONIC OBSTRUCTIVE PULMONARY DISEASE, UNSPECIFIED (7) Diabetes mellitus Code(s): E11.9 - TYPE 2 DIABETES MELLITUS WITHOUT COMPLICATIONS Qualifiers: Diabetes mellitus type: type 2 Diabetes mellitus complication status: with kidney complications Diabetes mellitus complication detail: with chronic kidney disease Chronic kidney disease stage: on chronic dialysis (8) Functional quadriplegia Code(s): R53.2 - FUNCTIONAL QUADRIPLEGIA (9) Morbid obesity Code(s): E66.01 - MORBID (SEVERE) OBESITY DUE TO EXCESS CALORIES
[2018-01-08] MEDS ORDERED: INSULIN (NOVOLOG) ASPART 100 UNITS/ML 10ML VIAL ONE (17:29)
[2018-01-08] MEDS: WARFARIN NA 7.5 MG TABLET (FP) PO SCH (18:52)
--- NOTE | 2018-01-08 19:24 | PN ---
Progress Note (short form) - Note Progress Note: covering dr renteria pt seen yesterday and today- omitted note yesterday Problems 1. ESRD 2. obesity 3. hyperlipidemia 4. HTN 5. DM 6. CHF 7. CAD 8. anemia 9. a-fib 10. iron deficiency 11. r/o TIA 12. sepsis Current Medications Acetaminophen (Tylenol -) 325 mg PO Q6H PRN PRN Reason: PAIN 6-10 Last Admin: 01/08/18 10:01 Dose: 325 mg Atorvastatin Calcium (Lipitor -) 10 mg PO [facility] Last Admin: 01/07/18 22:57 Dose: 10 mg Budesonide/Formoterol Fumarate (Symbicort 160/4.5mcg -) 2 puff IH BID [facility] Last Admin: 01/08/18 09:56 Dose: 2 puff Diltiazem HCl (Cardizem Injection -) 10 mg IVPUSH Q4H PRN PRN Reason: HR > 110 Last Admin: 01/06/18 13:24 Dose: 10 mg Folic Acid (Folic Acid -) 1 mg PO DAILY [facility] Last Admin: 01/08/18 09:54 Dose: 1 mg Gabapentin (Neurontin -) 100 mg PO TID [facility] Last Admin: 01/08/18 14:07 Dose: 100 mg Insulin Aspart (Novolog Vial) 5 units SQ TIDAC [facility] Last Admin: 01/08/18 17:18 Dose: 5 units Insulin Aspart (Novolog Vial Sliding Scale -) 1 vial SQ TIDAC [facility]; Protocol Last Admin: 01/08/18 17:02 Dose: Not Given Insulin Detemir (Levemir Vial) 33 units SQ [facility] Last Admin: 01/07/18 22:55 Dose: 33 units Lisinopril (Prinivil) 10 mg PO DAILY [facility] Last Admin: 01/08/18 09:54 Dose: 10 mg Metoprolol Tartrate (Lopressor -) 50 mg PO QID [facility] Last Admin: 01/08/18 17:17 Dose: 50 mg Multivit/Ca Carb/B Cmplx/FA/Prenat (Nephro-Essie -) 1 tablet PO DAILY [facility] Last Admin: 01/08/18 09:55 Dose: 1 tablet Polyethylene Glycol (Miralax (For Daily Use) -) 17 gm PO BID [facility] Last Admin: 01/08/18 09:55 Dose: 17 gm Polysaccharide Iron Complex (Niferex-150 -) 150 mg PO DAILY [facility] Last Admin: 01/08/18 09:55 Dose: 150 mg Ranitidine HCl (Zantac -) 150 mg PO DAILY [facility] Last Admin: 01/08/18 09:54 Dose: 150 mg Senna (Senna -) 2 tab PO HS [facility] Last Admin: 01/07/18 22:56 Dose: 2 tab Silver Sulfadiazine (Silvadene -) 1 applic TP BID [facility] Last Admin: 01/08/18 09:56 Dose: 1 applic Simethicone (Mylicon -) 80 mg PO Q6H PRN PRN Reason: DYSPEPSIA Last Admin: 01/06/18 21:05 Dose: 80 mg Warfarin Sodium (Coumadin -) 7.5 mg PO DAILY@1800 [facility] Last Admin: 01/08/18 18:52 Dose: 7.5 mg Last Vital Signs Temp Pulse Resp BP Pulse Ox 99 F 71 18 163/51 L 98 01/08/18 17:39 01/08/18 17:39 01/08/18 17:39 01/08/18 17:39 01/08/18 10:00 Lungs clear Heart reg Abd soft nontender Ext no edema CBC, BMP 01/08/18 06:22 01/06/18 10:00 IMP esrd stable lytes no fluid overload Plan- HD tomorrow
[2018-01-08] MEDS ORDERED: SODIUM CHLORIDE 250 ML IV PRN (19:29)
[2018-01-08] MEDS ORDERED: oxyCODONE HCL 5 MG TABLET PO PRN (20:50)
[2018-01-08] MEDS: ATORVASTATIN CA 10 MG TABLET (FP) PO SCH (21:16)
[2018-01-08] MEDS: SENNOSIDES 8.6MG TABLET (FP) PO SCH (21:16)
[2018-01-08] MEDS: INSULIN (LEVEMIR) 100 UNITS/ML UNITS SQ SCH (21:17)
[2018-01-09] MEDS: GABAPENTIN 100 MG CAPSULE (FP) PO SCH ×3 (06:29→21:02)
[2018-01-09] MEDS: INSULIN (NOVOLOG) ASPART 100 UNITS/ML 10ML VIAL SQ SCH ×3 (06:31→17:21)
[2018-01-09] MEDS: INSULIN SLIDING SCALE (NOVOLOG) 1 VIAL SQ SCH ×3 (06:32→17:21)
[2018-01-09 06:47] LABS: HEMATOCRIT 26.1 % (32.4-45.2); HEMOGLOBIN 8.3 GM/dL (10.7-15.3); MCHC 31.8 g/dl (32.0-36.0); MEAN PLT VOLUME 7.4 fl (7.5-11.1); PLATELET COUNT 144 K/MM3 (134-434); RBC 2.97 M/mm3 (3.60-5.2); RDW 16.5 % (11.6-15.6); WHITE BLOOD COUNT 7.6 K/mm3 (4.0-10.0)
[2018-01-09] MEDS ORDERED: PT OWN MED DRAWER 7, Y5N ONE ×3 (08:43→09:26)
[2018-01-09] MEDS: POLYETHYLENE GLYCOL 3350 119 GM BTL PO SCH ×2 (09:17→21:03)
[2018-01-09] MEDS: RANITIDINE HCL 150 MG TABLET (FP) PO SCH (09:18)
[2018-01-09] MEDS: VITAMIN B COMP W-C 1 EA TABLET PO SCH (09:18)
[2018-01-09] MEDS: FOLIC ACID 1 MG TABLET (FP) PO SCH (09:18)
[2018-01-09] MEDS: SILVER SULFADIAZINE 1% TOP CREAM 50 GM JAR TP SCH ×2 (09:19→21:03)
[2018-01-09] MEDS: IRON POLYSACCHARIDES 150 MG CAPSULE PO SCH (09:19)
[2018-01-09] MEDS: BUDESONIDE/FORMETEROL FUMARATE 160/4.5 mcg INHALER IH SCH ×2 (09:20→21:03)
--- NOTE | 2018-01-09 09:41 | PN ---
Progress Note (short form) - Note Progress Note: comfortable feels well no new issues aebrile Vital Signs Temp 97.8 F 01/09/18 06:00 Pulse 69 01/09/18 06:00 Resp 20 01/09/18 06:00 BP 131/79 01/09/18 06:00 Pulse Ox 98 01/08/18 21:00 Intake & Output 01/08/18 01/08/18 01/09/18 11:59 23:59 11:59 Intake Total 650 130 Balance 650 130 Intake: IV 10 SL 10 Oral 650 120 Other: Voiding Method Incontinent Incontinent # Unmeasured Voids Void 1 1 Bowel Movement Yes Yes # Bowel Movements 1 Active Medications Acetaminophen (Tylenol -) 650 mg PO Q6H PRN PRN Reason: PAIN LEVEL 4 - 6 Last Admin: 01/08/18 21:15 Dose: 650 mg Atorvastatin Calcium (Lipitor -) 10 mg PO HS [facility] Last Admin: 01/08/18 21:16 Dose: 10 mg Budesonide/Formoterol Fumarate (Symbicort 160/4.5mcg -) 2 puff IH BID [facility] Last Admin: 01/09/18 09:20 Dose: 2 puff Diltiazem HCl (Cardizem Injection -) 10 mg IVPUSH Q4H PRN PRN Reason: HR > 110 Last Admin: 01/06/18 13:24 Dose: 10 mg Folic Acid (Folic Acid -) 1 mg PO DAILY [facility] Last Admin: 01/09/18 09:18 Dose: 1 mg Gabapentin (Neurontin -) 100 mg PO TID [facility] Last Admin: 01/09/18 06:29 Dose: 100 mg Sodium Chloride (Normal Saline -) 250 mls @ 3,000 mls/hr IV PRN PRN PRN Reason: Hypotension during Dialysis Stop: 01/09/18 19:29 Insulin Aspart (Novolog Vial) 5 units SQ TIDAC [facility] Last Admin: 01/09/18 06:31 Dose: 5 units Insulin Aspart (Novolog Vial Sliding Scale -) 1 vial SQ TIDAC [facility]; Protocol Last Admin: 01/09/18 06:32 Dose: Not Given Insulin Detemir (Levemir Vial) 33 units SQ [facility] Last Admin: 01/08/18 21:17 Dose: 33 units Lisinopril (Prinivil) 10 mg PO DAILY [facility] Last Admin: 01/08/18 09:54 Dose: 10 mg Metoprolol Tartrate (Lopressor -) 50 mg PO QID [facility] Last Admin: 01/08/18 21:15 Dose: 50 mg Multivit/Ca Carb/B Cmplx/FA/Prenat (Nephro-Essie -) 1 tablet PO DAILY [facility] Last Admin: 01/09/18 09:18 Dose: 1 tablet Oxycodone HCl (Roxicodone -) 5 mg PO Q6H PRN PRN Reason: PAIN LEVEL 7 - 10 Polyethylene Glycol (Miralax (For Daily Use) -) 17 gm PO BID [facility] Last Admin: 01/09/18 09:17 Dose: 17 gm Polysaccharide Iron Complex (Niferex-150 -) 150 mg PO DAILY [facility] Last Admin: 01/09/18 09:19 Dose: 150 mg Ranitidine HCl (Zantac -) 150 mg PO DAILY [facility] Last Admin: 01/09/18 09:18 Dose: 150 mg Senna (Senna -) 2 tab PO HS [facility] Last Admin: 01/08/18 21:16 Dose: 2 tab Silver Sulfadiazine (Silvadene -) 1 applic TP BID [facility] Last Admin: 01/09/18 09:19 Dose: 1 applic Simethicone (Mylicon -) 80 mg PO Q6H PRN PRN Reason: DYSPEPSIA Last Admin: 01/06/18 21:05 Dose: 80 mg Warfarin Sodium (Coumadin -) 7.5 mg PO DAILY@1800 [facility] Last Admin: 01/08/18 18:52 Dose: 7.5 mg CBC, BMP 01/09/18 06:00 01/06/18 10:00 Physical Exam lying in bed. awake/ comfortable. S1 S2 Irregular Lungs decreased Abd- soft, obese, NT , BS+ ext-- trace edema Neuro- alert/ awake PLAN- stable monitor for arrythmia unable to do imaging to R/O PE as she can not fit into CT scan monitor dialysis per renal- cardiology to follow-- d/c planning-- when cleared by cardiology will follow Problem List - Problems (1) End stage renal disease on dialysis Code(s): N18.6 - END STAGE RENAL DISEASE; Z99.2 - DEPENDENCE ON RENAL DIALYSIS (2) Afib Code(s): I48.91 - UNSPECIFIED ATRIAL FIBRILLATION Qualifiers: Atrial fibrillation type: persistent Qualified Code(s): I48.1 - Persistent atrial fibrillation (3) Anemia Code(s): D64.9 - ANEMIA, UNSPECIFIED Qualifiers: Anemia type: due to chronic kidney disease Chronic kidney disease stage: on chronic dialysis Qualified Code(s): N18.6 - End stage renal disease; D63.1 - Anemia in chronic kidney disease; Z99.2 - Dependence on renal dialysis (4) Anticoagulated on Coumadin Code(s): Z51.81 - ENCOUNTER FOR THERAPEUTIC DRUG LEVEL MONITORING; Z79.01 - ANTIQUER (CURRENT) USE OF 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 (5) CHF (congestive heart failure) Code(s): I50.9 - HEART FAILURE, UNSPECIFIED (6) COPD (chronic obstructive pulmonary disease) Code(s): J44.9 - CHRONIC OBSTRUCTIVE PULMONARY DISEASE, UNSPECIFIED (7) Diabetes mellitus Code(s): E11.9 - TYPE 2 DIABETES MELLITUS WITHOUT COMPLICATIONS Qualifiers: Diabetes mellitus type: type 2 Diabetes mellitus complication status: with kidney complications Diabetes mellitus complication detail: with chronic kidney disease Chronic kidney disease stage: on chronic dialysis (8) Functional quadriplegia Code(s): R53.2 - FUNCTIONAL QUADRIPLEGIA (9) Morbid obesity Code(s): E66.01 - MORBID (SEVERE) OBESITY DUE TO EXCESS CALORIES
[2018-01-09] MEDS: METOPROLOL TARTRATE 50 MG TABLET (FP) PO SCH (10:00)
[2018-01-09] MEDS: LISINOPRIL 10 MG TABLET (FP) PO SCH (10:00)
--- NOTE | 2018-01-09 12:07 | PN ---
Progress Note, Physician History of Present Illness: Episodes of rate-controlled paroxysmal afib. Denies chest pain or dyspnea. Off abx, cx negative. - Current Medication List Current Medications: Active Medications Acetaminophen (Tylenol -) 650 mg PO Q6H PRN PRN Reason: PAIN LEVEL 4 - 6 Last Admin: 01/08/18 21:15 Dose: 650 mg Atorvastatin Calcium (Lipitor -) 10 mg PO HS [facility] Last Admin: 01/08/18 21:16 Dose: 10 mg Budesonide/Formoterol Fumarate (Symbicort 160/4.5mcg -) 2 puff IH BID [facility] Last Admin: 01/09/18 09:20 Dose: 2 puff Diltiazem HCl (Cardizem Injection -) 10 mg IVPUSH Q4H PRN PRN Reason: HR > 110 Last Admin: 01/06/18 13:24 Dose: 10 mg Folic Acid (Folic Acid -) 1 mg PO DAILY [facility] Last Admin: 01/09/18 09:18 Dose: 1 mg Gabapentin (Neurontin -) 100 mg PO TID [facility] Last Admin: 01/09/18 06:29 Dose: 100 mg Sodium Chloride (Normal Saline -) 250 mls @ 3,000 mls/hr IV PRN PRN PRN Reason: Hypotension during Dialysis Stop: 01/09/18 19:29 Insulin Aspart (Novolog Vial) 5 units SQ TIDAC [facility] Last Admin: 01/09/18 06:31 Dose: 5 units Insulin Aspart (Novolog Vial Sliding Scale -) 1 vial SQ TIDAC [facility]; Protocol Last Admin: 01/09/18 11:39 Dose: Not Given Insulin Detemir (Levemir Vial) 33 units SQ [facility] Last Admin: 01/08/18 21:17 Dose: 33 units Lisinopril (Prinivil) 10 mg PO DAILY [facility] Last Admin: 01/09/18 10:00 Dose: 10 mg Metoprolol Tartrate (Lopressor -) 50 mg PO QID [facility] Last Admin: 01/09/18 10:00 Dose: 50 mg Multivit/Ca Carb/B Cmplx/FA/Prenat (Nephro-Essie -) 1 tablet PO DAILY [facility] Last Admin: 01/09/18 09:18 Dose: 1 tablet Oxycodone HCl (Roxicodone -) 5 mg PO Q6H PRN PRN Reason: PAIN LEVEL 7 - 10 Polyethylene Glycol (Miralax (For Daily Use) -) 17 gm PO BID [facility] Last Admin: 01/09/18 09:17 Dose: 17 gm Polysaccharide Iron Complex (Niferex-150 -) 150 mg PO DAILY [facility] Last Admin: 01/09/18 09:19 Dose: 150 mg Ranitidine HCl (Zantac -) 150 mg PO DAILY [facility] Last Admin: 01/09/18 09:18 Dose: 150 mg Senna (Senna -) 2 tab PO HS [facility] Last Admin: 01/08/18 21:16 Dose: 2 tab Silver Sulfadiazine (Silvadene -) 1 applic TP BID [facility] Last Admin: 01/09/18 09:19 Dose: 1 applic Simethicone (Mylicon -) 80 mg PO Q6H PRN PRN Reason: DYSPEPSIA Last Admin: 01/06/18 21:05 Dose: 80 mg Warfarin Sodium (Coumadin -) 7.5 mg PO DAILY@1800 [facility] Last Admin: 01/08/18 18:52 Dose: 7.5 mg - Objective Vital Signs: Vital Signs Temperature 97.9 F 01/09/18 10:00 Pulse Rate 63 01/09/18 10:00 Respiratory Rate 20 01/09/18 10:00 Blood Pressure 140/90 01/09/18 10:00 O2 Sat by Pulse Oximetry (%) 99 01/09/18 09:00 Constitutional: Yes: No Distress, Calm Neck: Yes: Supple Cardiovascular: Yes: Regular Rate and Rhythm Respiratory: Yes: Regular, Diminished, On Nasal O2 Gastrointestinal: Yes: Normal Bowel Sounds, Soft, Abdomen, Obese Edema: No Labs: CBC, BMP 01/09/18 06:00 01/06/18 10:00 INR, PTT INR 2.81 (0.83-1.09) H 01/08/18 06:22 - ....Imaging EKG: Report Reviewed (Tele: NSR) Problem List - Problems (1) End stage renal disease on dialysis Code(s): N18.6 - END STAGE RENAL DISEASE; Z99.2 - DEPENDENCE ON RENAL DIALYSIS (2) Sepsis Code(s): A41.9 - SEPSIS, UNSPECIFIED ORGANISM (3) Afib Code(s): I48.91 - UNSPECIFIED ATRIAL FIBRILLATION Qualifiers: Atrial fibrillation type: persistent Qualified Code(s): I48.1 - Persistent atrial fibrillation (4) Anemia Code(s): D64.9 - ANEMIA, UNSPECIFIED Qualifiers: Anemia type: due to chronic kidney disease Chronic kidney disease stage: on chronic dialysis Qualified Code(s): N18.6 - End stage renal disease; D63.1 - Anemia in chronic kidney disease; Z99.2 - Dependence on renal dialysis (5) Anticoagulated on Coumadin Code(s): Z51.81 - ENCOUNTER FOR THERAPEUTIC DRUG LEVEL MONITORING; Z79.01 - SNF (CURRENT) USE OF 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 (6) Diabetes mellitus Code(s): E11.9 - TYPE 2 DIABETES MELLITUS WITHOUT COMPLICATIONS Qualifiers: Diabetes mellitus type: type 2 Diabetes mellitus complication status: with kidney complications Diabetes mellitus complication detail: with chronic kidney disease Chronic kidney disease stage: on chronic dialysis (7) Diastolic CHF, acute on chronic Code(s): I50.33 - ACUTE ON CHRONIC DIASTOLIC (CONGESTIVE) HEART FAILURE (8) Morbid obesity Code(s): E66.01 - MORBID (SEVERE) OBESITY DUE TO EXCESS CALORIES (9) Sleep apnea in adult Code(s): G47.33 - OBSTRUCTIVE SLEEP APNEA (ADULT) (PEDIATRIC) Assessment/Plan echo 10/2017 TDS, normal LV fxn echo 09/2015 tds echo 01/2013: tds, nl lvef, valves not seen well cath 11/2007: normal cors 1. Resolved sepsis syndrome 2. Paroxysmal afib with improved rate-control on coumadin with therapeutic INR 3. Chronic diastolic failure 4. HTN 5. Hyperlipidemia 6. ESRD on HD 7. Morbid obesity, with OSAS/OHS suspected 8. Anemia PLAN: 1. Coumadin as per INR 2-3 with GI protection 2. Consolidate Lopressor 100 bid, may need to add cardizem for additional rate- control 3. Continue lisinopril 10 qd, lmdur 60 qd d/mildred 4. HD/UF per renal 5. Continue Lipitor 10 qhs 6. Off abx per ID, bowel regimen, d/c planning
[2018-01-09] MEDS: ACETAMINOPHEN 325 MG TABLET (FP) PO PRN ×2 (12:14→18:38)
--- NOTE | 2018-01-09 15:36 | PN ---
Progress Note, Physician History of Present Illness: Pt seen and examined at bedside. She tolerated HD. She is awake and alert. She denies shortness of breath. - Current Medication List Current Medications: Active Medications Acetaminophen (Tylenol -) 650 mg PO Q6H PRN PRN Reason: PAIN LEVEL 4 - 6 Last Admin: 01/09/18 12:14 Dose: 650 mg Atorvastatin Calcium (Lipitor -) 10 mg PO HS [facility] Last Admin: 01/08/18 21:16 Dose: 10 mg Budesonide/Formoterol Fumarate (Symbicort 160/4.5mcg -) 2 puff IH BID [facility] Last Admin: 01/09/18 09:20 Dose: 2 puff Diltiazem HCl (Cardizem Injection -) 10 mg IVPUSH Q4H PRN PRN Reason: HR > 110 Last Admin: 01/06/18 13:24 Dose: 10 mg Folic Acid (Folic Acid -) 1 mg PO DAILY [facility] Last Admin: 01/09/18 09:18 Dose: 1 mg Gabapentin (Neurontin -) 100 mg PO TID [facility] Last Admin: 01/09/18 12:59 Dose: 100 mg Sodium Chloride (Normal Saline -) 250 mls @ 3,000 mls/hr IV PRN PRN PRN Reason: Hypotension during Dialysis Stop: 01/09/18 19:29 Insulin Aspart (Novolog Vial) 5 units SQ TIDAC [facility] Last Admin: 01/09/18 12:13 Dose: 5 units Insulin Aspart (Novolog Vial Sliding Scale -) 1 vial SQ TIDAC [facility]; Protocol Last Admin: 01/09/18 11:39 Dose: Not Given Insulin Detemir (Levemir Vial) 33 units SQ [facility] Last Admin: 01/08/18 21:17 Dose: 33 units Lisinopril (Prinivil) 10 mg PO DAILY [facility] Last Admin: 01/09/18 10:00 Dose: 10 mg Metoprolol Tartrate (Lopressor -) 100 mg PO BID [facility] Multivit/Ca Carb/B Cmplx/FA/Prenat (Nephro-Essie -) 1 tablet PO DAILY [facility] Last Admin: 01/09/18 09:18 Dose: 1 tablet Oxycodone HCl (Roxicodone -) 5 mg PO Q6H PRN PRN Reason: PAIN LEVEL 7 - 10 Last Admin: 01/09/18 13:26 Dose: 5 mg Polyethylene Glycol (Miralax (For Daily Use) -) 17 gm PO BID [facility] Last Admin: 01/09/18 09:17 Dose: 17 gm Polysaccharide Iron Complex (Niferex-150 -) 150 mg PO DAILY [facility] Last Admin: 01/09/18 09:19 Dose: 150 mg Ranitidine HCl (Zantac -) 150 mg PO DAILY [facility] Last Admin: 01/09/18 09:18 Dose: 150 mg Senna (Senna -) 2 tab PO HS [facility] Last Admin: 01/08/18 21:16 Dose: 2 tab Silver Sulfadiazine (Silvadene -) 1 applic TP BID [facility] Last Admin: 01/09/18 09:19 Dose: 1 applic Simethicone (Mylicon -) 80 mg PO Q6H PRN PRN Reason: DYSPEPSIA Last Admin: 01/06/18 21:05 Dose: 80 mg Warfarin Sodium (Coumadin -) 7.5 mg PO DAILY@1800 [facility] Last Admin: 01/08/18 18:52 Dose: 7.5 mg - Objective Vital Signs: Vital Signs Temperature 98.3 F 01/09/18 13:50 Pulse Rate 62 01/09/18 13:55 Respiratory Rate 18 01/09/18 13:55 Blood Pressure 148/108 H 01/09/18 13:55 O2 Sat by Pulse Oximetry (%) 99 01/09/18 09:00 Constitutional: Yes: Calm Eyes: Yes: Conjunctiva Clear HENT: Yes: Atraumatic Neck: Yes: Supple Cardiovascular: Yes: S1, S2 Respiratory: Yes: CTA Bilaterally Gastrointestinal: Yes: Normal Bowel Sounds, Soft Genitourinary: Yes: Incontinence Musculoskeletal: Yes: WNL Edema: Yes Edema: LLE: 1+, RLE: 1+ Integumentary: Yes: Venous Stasis Changes Neurological: Yes: Oriented Psychiatric: Yes: Oriented Labs: CBC, BMP 01/09/18 06:00 01/06/18 10:00 INR, PTT INR 2.81 (0.83-1.09) H 01/08/18 06:22 Problem List - Problems (1) End stage renal disease on dialysis Code(s): N18.6 - END STAGE RENAL DISEASE; Z99.2 - DEPENDENCE ON RENAL DIALYSIS Assessment/Plan Current Medications Generic Name Dose Route Start Last Admin Trade Name Freq PRN Reason Stop Dose Admin Acetaminophen 650 mg 01/08/18 20:50 01/09/18 12:14 Tylenol - PO 650 mg Q6H PRN Administration PAIN LEVEL 4 - 6 Atorvastatin Calcium 10 mg 12/29/17 22:00 01/08/18 21:16 Lipitor - PO 10 mg HS [facility] Administration Budesonide/Formoterol Fumarate 2 puff 12/29/17 22:00 01/09/18 09:20 Symbicort 160/4.5mcg - IH 2 puff BID [facility] Administration Diltiazem HCl 10 mg 01/01/18 04:52 01/06/18 13:24 Cardizem Injection - IVPUSH 10 mg Q4H PRN Administration HR > 110 Folic Acid 1 mg 12/30/17 10:00 01/09/18 09:18 Folic Acid - PO 1 mg DAILY [facility] Administration Gabapentin 100 mg 12/29/17 14:51 01/09/18 12:59 Neurontin - PO 100 mg TID [facility] Administration Sodium Chloride 250 mls @ 3,000 mls/hr 01/08/18 19:29 Normal Saline - IV 01/09/18 19:29 PRN PRN Hypotension during Dialysis Insulin Aspart 5 units 12/29/17 16:30 01/09/18 12:13 Novolog Vial SQ 5 units TIDAC [facility] Administration Insulin Aspart 1 vial 12/29/17 16:30 01/09/18 11:39 Novolog Vial Sliding Scale - SQ Not Given TIDAC [facility] Protocol Insulin Detemir 33 units 12/29/17 22:00 01/08/18 21:17 Levemir Vial SQ 33 units HS [facility] Administration Lisinopril 10 mg 01/05/18 12:13 01/09/18 10:00 Prinivil PO 10 mg DAILY [facility] Administration Metoprolol Tartrate 100 mg 01/09/18 22:00 Lopressor - PO BID [facility] Multivit/Ca Carb/B Cmplx/FA/Prenat 1 tablet 12/30/17 10:00 01/09/18 09:18 Nephro-Essie - PO 1 tablet DAILY [facility] Administration Oxycodone HCl 5 mg 01/08/18 20:50 01/09/18 13:26 Roxicodone - PO 5 mg Q6H PRN Administration PAIN LEVEL 7 - 10 Polyethylene Glycol 17 gm 01/01/18 22:00 01/09/18 09:17 Miralax (For Daily Use) - PO 17 gm BID [facility] Administration Polysaccharide Iron Complex 150 mg 12/30/17 10:00 01/09/18 09:19 Niferex-150 - PO 150 mg DAILY [facility] Administration Ranitidine HCl 150 mg 12/30/17 10:00 01/09/18 09:18 Zantac - PO 150 mg DAILY [facility] Administration Senna 2 tab 12/31/17 22:00 01/08/18 21:16 Senna - PO 2 tab HS [facility] Administration Silver Sulfadiazine 1 applic 01/09/18 10:00 01/09/18 09:19 Silvadene - TP 1 applic BID [facility] Administration Simethicone 80 mg 12/29/17 14:00 01/06/18 21:05 Mylicon - PO 80 mg Q6H PRN Administration DYSPEPSIA Warfarin Sodium 7.5 mg 01/05/18 18:00 01/08/18 18:52 Coumadin - PO 7.5 mg DAILY@1800 [facility] Administration Impression 1. ESRD 2. obesity 3. hyperlipidemia 4. HTN 5. DM 6. CHF 7. CAD 8. anemia 9. a-fib 10. iron deficiency 11. r/o TIA 12. sepsis Plan - pt tolerated HD - epogen for anemia - cont augustus as tolerated - next HD on Tuesday, has HD set up as outpt - cardio input appreciated - will follow Dr Capps
[2018-01-09] MEDS ORDERED: EPOETIN ALFA 10,000 UNIT/1 ML VIAL SQ ONE (16:15)
[2018-01-09] MEDS: WARFARIN NA 7.5 MG TABLET (FP) PO SCH (17:22)
[2018-01-09 18:40] VITALS: TEMP 97.6
[2018-01-09] MEDS: INSULIN (LEVEMIR) 100 UNITS/ML UNITS SQ SCH (21:02)
[2018-01-09] MEDS: ATORVASTATIN CA 10 MG TABLET (FP) PO SCH (21:02)
[2018-01-09] MEDS: SENNOSIDES 8.6MG TABLET (FP) PO SCH (21:03)
[2018-01-09] MEDS ORDERED: METOPROLOL TARTRATE 50 MG TABLET (FP) PO SCH (22:00)
[2018-01-09 22:32] VITALS: BP 146/57; PULSE 83
== END 2018-01-09 21:00 | DRG 871 ==
LOC: JER 10:01 → JERBED 13:18 → J4S 20:45
PROVIDERS: ADMIT Internal Medicine; ATTEND Internal Medicine
PROC: 5A1D70Z Performance of Urinary Filtration, Intermittent, Less than 6 Hours Per Day (ICD-10-PCS; principal; 2018-01-04)
PROC: 5A1D70Z Performance of Urinary Filtration, Intermittent, Less than 6 Hours Per Day (ICD-10-PCS; 2018-01-06)
PROC: 5A1D70Z Performance of Urinary Filtration, Intermittent, Less than 6 Hours Per Day (ICD-10-PCS; 2018-01-09)
DX: A41.9 Sepsis, unspecified organism (principal); N18.6 End stage renal disease; R53.2 Functional quadriplegia; Z68.43 Body mass index [BMI] 50.0-59.9, adult; I13.2 Hypertensive heart and chronic kidney disease with heart failure and with stage 5 chronic kidney disease, or end stage renal disease; I50.32 Chronic diastolic (congestive) heart failure; I25.110 Atherosclerotic heart disease of native coronary artery with unstable angina pectoris; E66.01 Morbid (severe) obesity due to excess calories; R68.0 Hypothermia, not associated with low environmental temperature; J44.9 Chronic obstructive pulmonary disease, unspecified; I48.0 Paroxysmal atrial fibrillation; E78.5 Hyperlipidemia, unspecified; K21.9 Gastro-esophageal reflux disease without esophagitis; E11.9 Type 2 diabetes mellitus without complications; F32.9 Major depressive disorder, single episode, unspecified; E11.22 Type 2 diabetes mellitus with diabetic chronic kidney disease; M19.90 Unspecified osteoarthritis, unspecified site; R00.0 Tachycardia, unspecified; D50.9 Iron deficiency anemia, unspecified; D63.1 Anemia in chronic kidney disease; R79.1 Abnormal coagulation profile; G47.33 Obstructive sleep apnea (adult) (pediatric); Z99.2 Dependence on renal dialysis; Z79.01 Long term (current) use of anticoagulants
CPT/HCPCS: 36415; 71045-TC-FY; 80048; 80053; 81003; 81015; 82272; 82803; 82962; 83605; 84484; 85025; 85027; 85610; 85730; 87040; 87086; 93005; 93010; 99285-25; G0480; J0885; J1644; J7030; P9047

== ENCOUNTER 2018-02-24 20:27 | Emergency (ER) | payer OTHER ==
--- NOTE | 2018-02-24 20:31 | PDOC ---
Attending Attestation - HPI HPI: 02/24/18 21:11 The patient is a 72-year-old female with past medical history significant for COPD, HTN, ESRD on HD since November, HLD, hx of UTIs presents to the emergency department from [facility] with hypotension. The patient was at Dialysis at 3: 00 pm today, when her BP was noted to be in the 90/60s. The patient was sent back to the [place], at the [place] the patients BP was 107/70s. The [facility] reports the patients BP was 114/70s. The patient reports no complain or pain. The patient makes a little urine, denies dysuria, hematuria. Denies fever, chills, chest pain SOB, or syncopal episodes. Allergies: NKA PCP: From [facility] (Dr. Lee/Barry) - Medical Decision Making 02/24/18 21:11 Documentation prepared by Sofia Alvarez, acting as medical tech for Maria Teresa Dillard MD. <Sofia Alvarez - Last Filed: 02/24/18 21:11> - Resident Resident Name: Chelsie Nance - ED Attending Attestation I have performed the following: I have examined & evaluated the patient, The case was reviewed & discussed with the resident, I agree w/resident's findings & plan - Physicial Exam PE: 02/26/18 23:07 Agree with resident exam - Medical Decision Making 02/24/18 20:56 Pt will have basic labs and EKG to eval for hypotension that was experienced at dialysis. Pt has no complaints. She appears well and she will likely return to the [place]. <Maria Teresa Dillard - Last Filed: 02/26/18 23:08>
--- NOTE | 2018-02-24 20:31 | PDOC ---
History of Present Illness - General Chief Complaint: Blood Pressure Problem Stated Complaint: HYPERTENSION Time Seen by Provider: 02/24/18 20:31 History Source: Patient Exam Limitations: No Limitations - History of Present Illness Initial Comments: 02/24/18 20:54 This is a 72 year old female with multiple medical problems including COPD on o2 , paroxysmal atrial fibrillation, ESRD on dialysis, who was sent over from [facility] due to reported hypotension. As per heel sewer, patient blood pressure was 90s/60 on dialysis today, therefore was stopped 30 min early. At [facility] paramedics took blood pressure, 107/74. Patient AAOx3, no reported complaints, or associated symptoms. She denies MORALES, fever, chills n, v, d, blurry vision, lightheadedness, loc, chest pain, sob, leg swelling. Patient did take lisinopril this am before dialysis. She does make "very little urine daily. Denies dysuria, frequency, hematuria. PMHx: COPD on 2L oxygen, paraoxysmal atrial fibrillation on coumadin, HTN, diastolic CHF, hx of sepsis from UTI, HLD, anemia, heel stage 1 left heel sore, morbid obesity, DMII, ESRD on HD MWF Social: from [facility]; denies alcohol, tobacco , drug use NKDA Past History - Past Medical History Allergies/Adverse Reactions: Allergies Allergy/AdvReac Type Severity Reaction Status Date / Time No Known Allergies Allergy Verified 02/24/18 20:39 Home Medications: Ambulatory Orders Atorvastatin Calcium 10 mg PO HS 10/14/17 Cholecalciferol (Vitamin D3) [Vitamin D3] 1,000 unit PO DAILY 10/14/17 Docusate Sodium [Colace] 100 mg PO HS 10/14/17 Folic Acid 1 mg PO DAILY 10/14/17 Gabapentin [Neurontin -] 100 mg PO Q8H 10/14/17 Insulin Detemir [Levemir Flextouch] 33 unit SQ HS 10/14/17 Isosorbide Mononitrate 60 mg PO DAILY 10/14/17 Lactulose 10 gm PO HS 10/14/17 Metoprolol Tartrate 50 mg PO TID 10/14/17 Multivitamin [Multiple Vitamins] 1 each PO DAILY 10/14/17 Ranitidine HCl 150 mg PO DAILY 10/14/17 Bisacodyl [Bisacodyl -] 5 mg PO HS tablet. 11/14/17 Budesonide/Formeterol Fumarate [SYMBICORT 160/4.5mcg -] 1 inh PO DAILY 12/07/17 Epoetin [place] [Procrit] 10,000 unit IJ MOWEFR 12/07/17 Insulin Aspart [Novolog Flexpen] 5 unit SQ TIDCM 12/07/17 Iron Polysaccharide Complex [Ferrex 150] 150 mg PO DAILY 12/07/17 Silver Sulfadiazine 1% Top Cr [Silvadene -] 1 applic TP BID 12/07/17 Warfarin Sodium [Coumadin] 3 mg PO HS 12/07/17 Furosemide [Lasix -] 80 mg PO Q48H #20 tablet 12/21/17 Simethicone [Mylicon -] 80 mg PO QID PRN #20 tab.chew 12/21/17 Bacitracin - [Bacitracin Topical Ointment -] 500 unit TP BID MDD R NECK Vitamin B Comp W-C [Nephro-Essie -] 0.8 mg PO DAILY 12/29/17 Zinc Sulfate 220 mg PO DAILY MDD for 10 days 12/29/17 Acetaminophen [Tylenol .Regular Strength -] 325 mg PO Q6H PRN tablet 01/02/18 Insulin (Novolog) [Novolog -] 5 units SQ TIDAC units 01/02/18 Isosorbide Mononitrate [Imdur -] 60 mg PO DAILY tab.sr.24h 01/02/18 Lisinopril [Prinivil] 5 mg PO DAILY tablet 01/02/18 Oxycodone HCl/Acetaminophen [Percocet 5-325 mg Tablet] 1 tab PO TID PRN #0 500s 01/02/18 Polyethylene Glycol 3350 [Miralax 119 gm Btl -] 17 gm PO BID bottle 01/02/18 Sennosides [Senna -] 2 tab PO HS tablet 01/02/18 Warfarin Na [Coumadin -] 3 mg PO DAILY@1800 tablet 01/02/18 Anemia: Yes Asthma: Yes Cancer: No Cardiac Disorders: Yes (atrial fibrilation) CVA: No COPD: Yes CHF: Yes Dementia: No Diabetes: Yes GI Disorders: Yes (GERD) Disorders: Yes (UTI) HTN: Yes Hypercholesterolemia: Yes Liver Disease: No Seizures: No Thyroid Disease: No - Surgical History Abdominal Surgery: No Appendectomy: No Cardiac Surgery: No Cholecystectomy: No Lung Surgery: No Neurologic Surgery: No Orthopedic Surgery: Yes (L. Ankle sx, L.leg) - Immunization History Immunization Up to Date: Yes - Suicide/Smoking/Psychosocial Hx Smoking Status: No Smoking History: Never smoked Have you smoked in the past 12 months: No Number of Cigarettes Smoked Daily: 0 Hx Alcohol Use: No Drug/Substance Use Hx: No Substance Use Type: None Hx Substance Use Treatment: No Review of Systems - Review of Systems Able to Perform ROS?: Yes Constitutional: Yes: Other (intentional wt loss 20lbs). No: Chills, Diaphoresis , Fever, Loss of Appetite, Night Sweats, Weakness HEENTM: No: Eye Pain, Blurred Vision, Double Vision Respiratory: No: Cough, Orthopnea, Shortness of Breath, SOB with Exertion Cardiac (ROS): Yes: Irregular Heart Rate. No: Symptoms Reported, Chest Pain, Edema, Lightheadedness, Palpitations ABD/GI: No: Diarrhea, Nausea, Vomiting : No: Dysuria, Frequency, Hematuria, Incontinence Musculoskeletal: Yes: Joint Pain (bilateral joint pain; knees). No: Back Pain Integumentary: No: Dryness, Erythema Neurological: No: Headache, Numbness, Paresthesia, Weakness Hematologic/Lymphatic: Yes: Anemia *Physical Exam - Physical Exam General Appearance: Yes: Obese, Other. No: Apparent Distress HEENT: positive: Normal Voice, Pharynx Normal Respiratory/Chest: positive: Lungs Clear, Normal Breath Sounds. negative: Crackles, Rhonchi, Wheezing Cardiovascular: positive: Regular Rhythm, Regular Rate, S1, S2 Vascular Pulses: Femoral (R): 2+, Femoral (L): 2+, Carotid (R): 2+, Carotid (L) : 2+ Gastrointestinal/Abdominal: positive: Normal Bowel Sounds. negative: Tender Musculoskeletal: negative: CVA Tenderness Extremity: positive: Other. negative: Pedal Edema Integumentary: positive: Other (left heal stage 1 pressure ulcer; clean; non purulent; no puss' non erythemates; no swelling) Neurologic: positive: hospice volunteer coordinator II-XII NML intact, Normal Mood/Affect ED Treatment Course - LABORATORY CBC & Chemistry Diagram: 02/24/18 21:39 02/24/18 21:39 Medical Decision Making - Medical Decision Making 02/24/18 21:16 This is a 72 year old female with a history of COPD on 2L oxygen, paroxysmal atrial fibrillation, diastolic CHF, DMII, ESRD on HD, who was sent over from [facility] due to reported hypotension. Patient BP on arrival was 120/47. NO associated symptoms, complaints. Will order ancillary studies cbc, cmp, ecg , to check for anemia, signs of infection. Will stop fluids that was started prior to arrival, recheck BP. 02/24/18 23:12 -cbc, cmp, wnl -BP stable; 124/90 -will straight cath to get UA for infectious source -DC back to [facility] *DC/Admit/Observation/Transfer Diagnosis at time of Disposition: Hypotension Qualifiers: Hypotension type: hypotension due to hypovolemia Qualified Code(s): I95.89 - Other hypotension; E86.1 - Hypovolemia - Discharge Dispostion Disposition: LONG-TERM FACILITY Condition at time of disposition: Improved Decision to Admit order: No - Referrals Referrals: Alicja Lee MD [Primary Care Provider] - - Patient Instructions Additional Instructions: Ms. Muse, your blood pressure was low at dialysis, which has now resolved. Your blood work was normal. Please continue to take all of your prescribed medications. - Post Discharge Activity
[2018-02-24 20:39] VITALS: TEMP 96.8; BMI 50.5
[2018-02-24 21:56] LABS: BASO % 0.5 % (0-2.0); EOS % 2.1 % (0-4.5); HEMATOCRIT 35.6 % (32.4-45.2); HEMOGLOBIN 11.3 GM/dL (10.7-15.3); LYMPH % 15.4 % (8-40); MCH 28.3 pg (25.7-33.7); MCHC 31.7 g/dl (32.0-36.0); MEAN PLT VOLUME 7.8 fl (7.5-11.1); MONO % 5.5 % (3.8-10.2); NEUT % 76.5 % (42.8-82.8); PLATELET COUNT 185 K/MM3 (134-434); RDW 18.2 % (11.6-15.6); WHITE BLOOD COUNT 9.5 K/mm3 (4.0-10.0)
[2018-02-24 22:15] LABS: INR 2.36 (0.83-1.09); PROTHROMBIN TIME (PATIENT) 28.1 SEC (9.7-13.0)
[2018-02-24 22:32] LABS: ALK PHOS 74 U/L (45-117); ANION GAP 10 MMOL/L (8-16); BILIRUBIN,TOTAL 0.2 mg/dL (0.2-1); BLOOD UREA NITROGEN 13 mg/dL (7-18); CALCIUM 8.5 mg/dL (8.5-10.1); CHLORIDE 100 mmol/L (98-107); CO2 24 mmol/L (21-32); CREATININE 2.6 mg/dL (0.55-1.3); GLUCOSE,RANDOM 180 mg/dL (74-106); POTASSIUM 4.5 mmol/L (3.5-5.1); SGOT/AST 15 U/L (15-37); SGPT/ALT 15 U/L (13-61); SODIUM 134 mmol/L (136-145); TOT PROT 6.6 g/dl (6.4-8.2)
[2018-02-25 00:14] LABS: URINE APPEARANCE SLCLOUDY; URINE BILIRUBIN NEGATIVE (<2.0 mg/dL); URINE GLUCOSE (UA) NEGATIVE (NEGATIVE); URINE KETONE NEGATIVE (NEGATIVE); URINE LEUK ESTERASE TRACE (NEGATIVE); URINE NITRITE NEGATIVE (NEGATIVE); URINE PROTEIN 1+ (NEGATIVE); URINE UROBILINOGEN NEGATIVE mg/dL (0.2-1.0)
[2018-02-25 00:27] LABS: URINE COLOR YELLOW
[2018-02-25 00:31] LABS: EPI CELLS RARE /HPF (FEW); URINE HYALINE CAST 6 /lpf; URINE MUCUS RARE
[2018-02-25 03:24] VITALS: BP 126/70; PULSE 67
== END 2018-02-25 03:31 ==
LOC: JER 20:27
DX: I95.9 Hypotension, unspecified (principal); I13.2 Hypertensive heart and chronic kidney disease with heart failure and with stage 5 chronic kidney disease, or end stage renal disease; E11.22 Type 2 diabetes mellitus with diabetic chronic kidney disease; N18.6 End stage renal disease; I50.30 Unspecified diastolic (congestive) heart failure; N17.8 Other acute kidney failure; Z99.2 Dependence on renal dialysis; Z79.4 Long term (current) use of insulin; J44.9 Chronic obstructive pulmonary disease, unspecified; J45.909 Unspecified asthma, uncomplicated; Z99.81 Dependence on supplemental oxygen; I48.0 Paroxysmal atrial fibrillation; Z79.01 Long term (current) use of anticoagulants; E78.5 Hyperlipidemia, unspecified; D64.9 Anemia, unspecified; E66.01 Morbid (severe) obesity due to excess calories; Z68.43 Body mass index [BMI] 50.0-59.9, adult
CPT/HCPCS: 36415; 80053; 81003; 81015; 85025; 85610; 99283-25

== ENCOUNTER 2018-06-29 13:19 | Observation (INO) | payer OTHER ==
--- NOTE | 2018-06-29 14:22 | PDOC ---
History of Present Illness - General Chief Complaint: Altered Mental Status Stated Complaint: LOW BLOOD PRESSURE History Source: Patient Exam Limitations: No Limitations - History of Present Illness Initial Comments: 06/29/18 14:22 72 yo F with a past medical hx of ESRD MWF HD via permacath (installed right chest wall 12/2017), HTN, HLD, IDDM, diastolic CHF, chronic venous insufficiency , COPD, afib on coumadin, arthritis, HTN, and HLD presents to the emergency department upon referral from her longterm [facility] for sepsis workup after AMS earlier this week with hypotension and borderline fever today with murky urine. Per the patient, she began feeling "out of this world" on Tuesday and felt completely back to normal on Tuesday after dialysis. Per the patient's sister at bedside, her sister is acting 100% back to normal. Upon calling [facility], they stated she was hypotensive with BP at 84/49 with a 99.4 F temperature. She was started on macrobid yesterday for turbid urine. Per the patient, she does not feel symptomatic. Denies the following: fever, chills, SOB , chest pain, visual changes, nausea, vomiting, diarrhea, abdominal pain, hematochezia, and leg pain/swelling. Past History - Past Medical History Allergies/Adverse Reactions: Allergies Allergy/AdvReac Type Severity Reaction Status Date / Time No Known Allergies Allergy Verified 06/29/18 13:51 Home Medications: Ambulatory Orders Atorvastatin Calcium 10 mg PO HS 10/14/17 Cholecalciferol (Vitamin D3) [Vitamin D3] 1,000 unit PO DAILY 10/14/17 Docusate Sodium [Colace] 100 mg PO HS 10/14/17 Folic Acid 1 mg PO DAILY 10/14/17 Gabapentin [Neurontin -] 100 mg PO Q8H 10/14/17 Insulin Detemir [Levemir Flextouch] 33 unit SQ HS 10/14/17 Lactulose 10 gm PO HS 10/14/17 Metoprolol Tartrate 50 mg PO Q8H 10/14/17 Multivitamin [Multiple Vitamins] 1 each PO DAILY 10/14/17 Ranitidine HCl 150 mg PO HS 10/14/17 Budesonide/Formeterol Fumarate [SYMBICORT 160/4.5mcg -] 1 inh PO BID 12/07/17 Epoetin [place] [Procrit] 10,000 unit IJ MOWEFR 12/07/17 Insulin Aspart [Novolog Flexpen] 5 unit SQ TIDCM 12/07/17 Iron Polysaccharide Complex [Ferrex 150] 150 mg PO DAILY 12/07/17 Silver Sulfadiazine 1% Top Cr [Silvadene -] 1 applic TP BID 12/07/17 Warfarin Sodium [Coumadin] 3 mg PO HS 12/07/17 Furosemide [Lasix -] 80 mg PO Q48H #20 tablet 12/21/17 Simethicone [Mylicon -] 80 mg PO QID PRN #20 tab.chew 12/21/17 Bacitracin - [Bacitracin Topical Ointment -] 500 unit TP BID MDD R NECK Vitamin B Comp W-C [Nephro-Essie -] 0.8 mg PO DAILY 12/29/17 Zinc Sulfate 220 mg PO DAILY MDD for 10 days 12/29/17 Isosorbide Mononitrate [Imdur -] 60 mg PO DAILY tab.sr.24h 01/02/18 Lisinopril [Prinivil] 5 mg PO DAILY tablet 01/02/18 Sennosides [Senna -] 2 tab PO HS tablet 01/02/18 Warfarin Na [Coumadin -] 3 mg PO DAILY@1800 tablet 01/02/18 Acetaminophen [Tylenol .Regular Strength -] 325 mg PO Q4H PRN 02/25/18 Oxycodone HCl/Acetaminophen [Percocet 5-325 mg Tablet] 2 tab PO Q6H PRN Polyethylene Glycol 3350 [Miralax 119 gm Btl -] 17 gm PO DAILY 02/25/18 Anemia: Yes Asthma: Yes Cancer: No Cardiac Disorders: Yes (atrial fibrilation) CVA: No COPD: Yes CHF: Yes Dementia: No Diabetes: Yes GI Disorders: Yes (GERD) Disorders: Yes (UTI) HTN: Yes Hypercholesterolemia: Yes Liver Disease: No Seizures: No Thyroid Disease: No - Surgical History Abdominal Surgery: No Appendectomy: No Cardiac Surgery: No Cholecystectomy: No Lung Surgery: No Neurologic Surgery: No Orthopedic Surgery: Yes (L. Ankle sx, L.leg) - Immunization History Immunization Up to Date: Yes - Suicide/Smoking/Psychosocial Hx Smoking Status: No Smoking History: Unknown if ever smoked Have you smoked in the past 12 months: No Number of Cigarettes Smoked Daily: 0 Hx Alcohol Use: No Drug/Substance Use Hx: No Substance Use Type: None Hx Substance Use Treatment: No Review of Systems - Review of Systems Able to Perform ROS?: Yes Is the patient limited Austrian proficient: No Constitutional: No: Chills, Diaphoresis, Fever, Weakness HEENTM: No: Eye Pain, Recent change in vision, Ear Pain, Nose Pain, Throat Pain , Mouth Pain Respiratory: No: Cough, Shortness of Breath, Hemoptysis Cardiac (ROS): No: Chest Pain, Lightheadedness, Palpitations, Syncope, Chest Tightness ABD/GI: No: Constipated, Diarrhea, Nausea, Poor Appetite, Poor Fluid Intake, Rectal Bleeding, Vomiting, Tarry Stools : No: Burning, Dysuria, Hematuria, Urgency Musculoskeletal: No: Back Pain, Joint Pain, Neck Pain Integumentary: Yes: Lesions (stage 2 ulcers on backside and sacrum). No: Bruising, Erythema, Rash, Sweating Neurological: No: Headache, Numbness, Tingling, Tremors, Ataxia, Dizziness Psychiatric: No: Change in Appetite Endocrine: No: Unexplained Weight Gain Hematologic/Lymphatic: No: Anemia *Physical Exam - Vital Signs Last Vital Signs Temp Pulse Resp BP Pulse Ox 98.2 F 73 20 161/100 100 06/29/18 13:25 06/29/18 13:25 06/29/18 13:25 06/29/18 13:25 06/29/18 13:25 - Physical Exam General Appearance: Yes: Nourished, Appropriately Dressed, Obese. No: Apparent Distress, Intoxicated HEENT: positive: EOMI, DEBI, Normal Voice, Symmetrical, Pharynx Normal, Hearing Grossly Normal. negative: Pale Conjunctivae, Scleral Icterus (R), Scleral Icterus (L), Muffled/Hoarse voice, Pharyngeal Erythema, Tonsillar Exudate, Tonsillar Erythema, Nasal Congestion, Rhinorrhea, Excessive drooling Neck: positive: Trachea midline, Supple. negative: Tender, Lymphadenopathy (R) , Lymphadenopathy (L), Tender lateral, Tender midline Respiratory/Chest: positive: Lungs Clear, Normal Breath Sounds. negative: Chest Tender, Respiratory Distress, Accessory Muscle Use, Crackles, Rales, Rhonchi, Stridor, Wheezing Cardiovascular: positive: Regular Rhythm, Regular Rate, S1, S2. negative: Systolic Murmur Gastrointestinal/Abdominal: positive: Normal Bowel Sounds, Flat, Soft, Protuberent. negative: Tender Lymphatic: negative: Adenopathy Musculoskeletal: positive: Normal Inspection. negative: CVA Tenderness, Vertebral Tenderness Extremity: positive: Normal Capillary Refill, Normal Range of Motion, Other ( chronic venous insufficiency changes; venous stasis dermatological changes). negative: Tender Integumentary: positive: Normal Color, Dry, Warm. 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 negative: EOM Palsy, Facial Droop , Sensory Deficit Moderate Sedation - Procedure Monitoring Vital Signs: Procedure Monitoring Vital Signs Temperature 98.2 F 06/29/18 13:25 Pulse Rate 73 06/29/18 13:25 Respiratory Rate 20 06/29/18 13:25 Blood Pressure 161/100 06/29/18 13:25 O2 Sat by Pulse Oximetry (%) 100 06/29/18 13:25 Heart Score/ECG Review - ECG Intrepretation Comment:: ventricular rate is 78 bpm, MD is 180 ms, QTc is 430 ms, QRS is [address] elevations or depressions. ED Treatment Course - LABORATORY CBC & Chemistry Diagram: 06/30/18 07:16 06/30/18 07:16 Medical Decision Making - Medical Decision Making 72 yo F with a past medical hx of ESRD MWF HD via permacath (installed right chest wall 12/2017), HTN, HLD, IDDM, diastolic CHF, chronic venous insufficiency , COPD, afib on coumadin, arthritis, HTN, and HLD presents to the emergency department upon referral from her longterm [facility] for sepsis workup after AMS earlier this week with hypotension and borderline fever today with murky urine. Initial vitals: Initial Vital Signs Temp Pulse Resp BP Pulse Ox 98.2 F 73 20 161/100 100 06/29/18 13:25 06/29/18 13:25 06/29/18 13:25 06/29/18 13:25 06/29/18 13:25 Work up: ddx: sepsis (infectious etiology ddx includes UTI (has multiple UTIs in the past most recently started treatment on macrobid yesterday) vs PNA vs skin tissue (has 3 stage 2 ulcers on the back and sacrum). AMS includes ddx of metabolic abnormality (felt back to normal after dialysis yesterday) vs infectious etiology vs toxins vs cardiogenic causes (EKG wnl) vs anemia Laboratory Tests 06/29/18 06/29/18 06/29/18 13:30 13:30 13:30 WBC 8.6 RBC 3.09 L Hgb 11.0 Hct 32.3 L MCV 104.6 H MCH 35.5 H D MCHC 33.9 RDW 16.6 H Plt Count 178 MPV 8.7 D Absolute Neuts (auto) 5.3 Neutrophils % 62.1 Lymphocytes % 25.1 D Monocytes % 9.0 Eosinophils % 3.1 Basophils % 0.7 Nucleated RBC % 0 PT with INR 58.70 H INR 4.90 H* PTT (Actin FS) 44.8 H VBG pH POC VBG pCO2 POC VBG pO2 VBG HCO3 VBG O2 Sat (Daniel) VBG Base Excess Sodium 133 L Potassium 5.4 H Chloride 97 L Carbon Dioxide 26 Anion Gap 10 BUN 31 H Creatinine 5.6 H Creat Clearance w eGFR 7.46 Random Glucose 86 Lactic Acid Calcium 8.3 L Total Bilirubin 0.2 AST 17 ALT 14 Alkaline Phosphatase 58 Creatine Kinase 144 CK-MB (CK-2) 1.9 Troponin I < 0.02 B-Natriuretic Peptide 3206.1 H Total Protein 6.0 L Albumin 2.5 L Urine Color Urine Appearance Urine pH Ur Specific [place] Urine Protein Urine Glucose (UA) Urine Ketones Urine Blood Urine Nitrite Urine Bilirubin Urine Urobilinogen Ur Leukocyte Esterase Urine WBC (Auto) Urine RBC (Auto) Urine Casts (Auto) U Pathogenic Cast Auto U Epithel Cells (Auto) U Sm Round Cell (Auto) Urine Crystals (Auto) Urine Bacteria (Auto) Urine Yeast (Auto) 06/29/18 06/29/18 06/29/18 15:15 15:15 15:49 WBC RBC Hgb Hct MCV MCH MCHC RDW Plt Count MPV Absolute Neuts (auto) Neutrophils % Lymphocytes % Monocytes % Eosinophils % Basophils % Nucleated RBC % PT with INR INR PTT (Actin FS) VBG pH 7.32 POC VBG pCO2 56.9 H POC VBG pO2 58.2 H VBG HCO3 28.5 VBG O2 Sat (Daniel) 89.1 H VBG Base Excess 2.0 Sodium Potassium Chloride Carbon Dioxide Anion Gap BUN Creatinine Creat Clearance w eGFR Random Glucose Lactic Acid 1.9 Calcium Total Bilirubin AST ALT Alkaline Phosphatase Creatine Kinase CK-MB (CK-2) Troponin I B-Natriuretic Peptide Total Protein Albumin Urine Color Yellow Urine Appearance Clear Urine pH 7.0 D Ur Specific [place] 1.020 Urine Protein 3+ Urine Glucose (UA) Negative Urine Ketones Trace Urine Blood 3+ Urine Nitrite Negative Urine Bilirubin Negative Urine Urobilinogen 0.2 Ur Leukocyte Esterase 3+ Urine WBC (Auto) >100 Urine RBC (Auto) 10-30 Urine Casts (Auto) No Result Required. U Pathogenic Cast Auto No Result Required. U Epithel Cells (Auto) Rare U Sm Round Cell (Auto) No Result Required. Urine Crystals (Auto) No Result Required. Urine Bacteria (Auto) Many Urine Yeast (Auto) No Result Required. lactic acid wnl. WBC wnl. potassium 5.4 and BNP is 3206. patient's UA shows 3+ leuk esterase with over 100 WBC and many bacteria. CXR was negative for acute pulmonary diseases but with an enlarged heart. Patient's ulcers were cultured. Patient was given 1 gram of IV tylenol and 5/325 percocet for pain control. EKG was NSR without ST elevations or depressions. Compared to her previous EKG, she had afib then but not present now. Will admit patient for sepsis management and care. Dispo: Admit *DC/Admit/Observation/Transfer Diagnosis at time of Disposition: UTI (urinary tract infection) Qualifiers: Urinary tract infection type: site unspecified Hematuria presence: without hematuria Qualified Code(s): N39.0 - Urinary tract infection, site not specified - Referrals - Patient Instructions - Post Discharge Activity
[2018-06-29 15:00] LABS: BASO % 0.7 % (0-2.0); EOS % 3.1 % (0-4.5); HEMATOCRIT 32.3 % (32.4-45.2); LYMPH % 25.1 % (8-40); MCH 35.5 pg (25.7-33.7); MCHC 33.9 g/dl (32.0-36.0); MEAN CELL VOLUME 104.6 fl (80-96); MEAN PLT VOLUME 8.7 fl (7.5-11.1); NEUT % 62.1 % (42.8-82.8); PLATELET COUNT 178 K/MM3 (134-434); RBC 3.09 M/mm3 (3.60-5.2); RDW 16.6 % (11.6-15.6); WHITE BLOOD COUNT 8.6 K/mm3 (4.0-10.0)
[2018-06-29 15:10] LABS: PROTHROMBIN TIME (PATIENT) 58.7 SEC (9.7-13.0)
[2018-06-29 15:13] LABS: ACTIVATED PTT 44.8 SECONDS (25.2-36.5)
[2018-06-29 15:23] LABS: VENOUS PC02 56.9 mmHg (41-51); VENOUS PH 7.32 (7.31-7.41); VENOUS PO2 58.2 mmHg (30-40)
[2018-06-29 15:30] LABS: INR 4.9 (0.83-1.09)
[2018-06-29 15:42] LABS: ALBUMIN 2.5 g/dl (3.4-5.0); ALK PHOS 58 U/L (45-117); ANION GAP 10 MMOL/L (8-16); BILIRUBIN,TOTAL 0.2 mg/dL (0.2-1); BLOOD UREA NITROGEN 31 mg/dL (7-18); CALCIUM 8.3 mg/dL (8.5-10.1); CHLORIDE 97 mmol/L (98-107); CO2 26 mmol/L (21-32); CREATININE 5.6 mg/dL (0.55-1.3); GLUCOSE,RANDOM 86 mg/dL (74-106); N-TERMINAL BNP 3206.1 pg/ml (5-125); POTASSIUM 5.4 mmol/L (3.5-5.1); SGOT/AST 17 U/L (15-37); SGPT/ALT 14 U/L (13-61); SODIUM 133 mmol/L (136-145)
--- NOTE | 2018-06-29 15:50 | EKG ---
Test Reason : Blood Pressure : / mmHG Vent. Rate : 078 BPM Atrial Rate : 078 BPM P-R Int : 180 ms QRS Dur : 088 ms QT Int : 378 ms P-R-T Axes : 038 050 086 degrees QTc Int : 430 ms SINUS RHYTHM WITH PREMATURE ATRIAL COMPLEXES OTHERWISE NORMAL ECG WHEN COMPARED WITH ECG OF 29-DEC-2017 11:04, SINUS RHYTHM HAS REPLACED ATRIAL FIBRILLATION QT HAS SHORTENED Confirmed by ZEE VELASQUEZ, ELOISA ([id number]) on 06/29/2018 3:49:49 PM Referred By: Confirmed By:ELOISA KOCH MD
--- NOTE | 2018-06-29 15:55 | PDOC ---
Attending Attestation - HPI HPI: The patient is a 72 year old female, with a significant PMH of ESRD MWF HD (via permacath installed in the right chest wall), COPD, diastolic CHF, Afib (on Coumadin), chronic venous insufficiency, IDDM, GERD, UTI, HTN, HLD, anemia, asthma, and osteoarthritis, who presents to the emergency department from [facility] for low blood pressure. As per [facility], patient had dialysis yesterday and had altered mental status (more confused than normal). Patients blood pressure was measured at 80/50, and temperature was 99, prompting her visit to the ED today. As per patients sister, patient is at baseline and is no longer confused. The patient denies shortness of breath, headache and dizziness. Denies fever, chills, nausea, vomit, diarrhea and constipation. Denies dysuria, frequency, urgency and hematuria. Allergies: NKA Past surgical history: Right chest wall permacath, left leg and left ankle orthopedic surgery Social history: No reported PCP: Dr. Alicja Lee 06/29/18 15:56 - Medical Decision Making EXAM#: TYPE/EXAM: RESULT: [id number] RAD/CHEST X-RAY PORTABLE* HISTORY PROVIDED: Rule out sepsis. IMPRESSION: Cardiomegaly, no acute disease. Reported By: Ambrose Wong MD 06/29/18 19:01 Documentation prepared by NICOLAS Nguyen, acting as medical receptionist biller for Casandra Flores MD. 06/29/18 19:08 <Magda Weaver - Last Filed: 06/29/18 19:08> - Resident Resident Name: Alen Byrnes - ED Attending Attestation I have performed the following: I have examined & evaluated the patient, The case was reviewed & discussed with the resident, I agree w/resident's findings & plan, Exceptions are as noted - Physicial Exam PE: 06/29/18 15:59 awake alert lungs clear bilaterally heart rrr no mrg abd soft obese nt ext wwp. skin with sacral decubs. tunneled cath cdi. nuero alert oriented x 3. - Medical Decision Making 06/29/18 15:52 72 yo f h/o esrd here with episode of chest pain and hypotension at [facility]. last dialysis was yesterday, per [facility] staff pt was activing confused. when they check bp was 80/50. did have temp of 99. per family ( pt sister) she is currently at her baseline, and has had mutliple uti's. differential uti, pna, anemia, electrolyte abnormality, mi, plan labs ekg septic workup. will likely require admission. dr renteria at bedside to evaluate pt. <Casandra Flores - Last Filed: 07/08/18 19:38> Heart Score/ECG Review #1 General ECG Interpretation: Sinus Rhythm, Normal Rate (78), Normal Intervals, No acute ischemic changes Compared to previous ECG there are: Other (occasional pac) <Casandra Flores - Last Filed: 07/08/18 19:38>
[2018-06-29] MEDS ORDERED: PIPERACILLIN/TAZOB 2.25 GM 2.25 GM in DEXTROSE 5%-WATER - 50 ML IVPB ONE (16:07)
[2018-06-29] MEDS ORDERED: PIPERACILLIN/TAZOB 2.25 GM 2.25 GM/50 ML BAG IVPB ONE (16:18)
[2018-06-29 18:08] LABS: URINE BILIRUBIN Negative (<2.0 mg/dL); URINE COLOR Yellow; URINE GLUCOSE (UA) Negative (NEGATIVE); URINE KETONE Trace (NEGATIVE); URINE LEUK ESTERASE 3+ (NEGATIVE); URINE NITRITE Negative (NEGATIVE); URINE PROTEIN 3+ (NEGATIVE); URINE UROBILINOGEN 0.2 mg/dL (0.2-1.0)
[2018-06-29 18:09] LABS: EPI CELLS RARE /HPF (0-5); URINE WBC >100 /hpf (0-5)
[2018-06-29 18:10] LABS: URINE APPEARANCE Clear; URINE BACTERIA MANY /hpf (NEGATIVE)
[2018-06-29] MEDS ORDERED: ACETAMINOPHEN 1000 MG/100 ML VIAL (NON FORMULARY) IVPB ONE (18:35)
[2018-06-29] MEDS ORDERED: ACETAMINOPHEN INJECTION 100 ML IVPB ONE (18:48)
[2018-06-29] MEDS ORDERED: SODIUM POLYSTYRENE SULFONATE 15 GM/60 ML BOTTLE PO ONE (19:05)
--- NOTE | 2018-06-29 19:34 | HP ---
CHIEF COMPLAINT: PCP: HISTORY OF PRESENT ILLNESS: Celine Muse Myron is patient is a 72 year old female, with a significant PMH of ESRD MWF HD (via permacath installed in the right chest wall), COPD, diastolic CHF, Afib (on Coumadin), chronic venous insufficiency, IDDM, GERD, UTI , HTN, HLD, anemia, asthma, and osteoarthritis, who presents to the emergency department from [facility] for low blood pressure. As per [facility], patient had dialysis yesterday and had altered mental status (more confused than normal) . Patients blood pressure was measured at 80/50, and temperature was 99, prompting her visit to the ED today. As per patients sister, patient is at baseline and is no longer confused. pt seen in ED, alert, oriented x 3, can recall Month, pt was not herself on Tuesday due to constipation, felt better after tap water enema. pt denies chest pain, sob, headache, abd pain, n/v, dysuria. pt reports making little urine. was started on Macrobid at [facility]. ER course was notable for: (1)Afebrile (2)no leukocytosis (3)UA WBC >100 Recent Travel: PAST MEDICAL HISTORY:ESRD MWF HD (via permacath installed in the right chest wall), COPD, diastolic CHF, Afib (on Coumadin), chronic venous insufficiency, IDDM, GERD, UTI, HTN, HLD, anemia, asthma, and osteoarthritis PAST SURGICAL HISTORY:Right chest permacath for HD Social History: Smoking:denies Alcohol:denies Drugs: denies Family History: Allergies No Known Allergies Allergy (Verified 06/29/18 13:51) HOME MEDICATIONS: Home Medications Medication Instructions Recorded Atorvastatin Calcium 10 mg PO HS 10/14/17 Cholecalciferol (Vitamin D3) 1,000 unit PO DAILY 10/14/17 [Vitamin D3] Docusate Sodium [Colace] 100 mg PO HS 10/14/17 Folic Acid 1 mg PO DAILY 10/14/17 Gabapentin [Neurontin -] 100 mg PO Q8H 10/14/17 Insulin Detemir [Levemir Flextouch] 33 unit SQ HS 10/14/17 Lactulose 10 gm PO HS 10/14/17 Metoprolol Tartrate 50 mg PO Q8H 10/14/17 Multivitamin [Multiple Vitamins] 1 each PO DAILY 10/14/17 Ranitidine HCl 150 mg PO HS 10/14/17 Budesonide/Formeterol Fumarate 1 inh PO BID 12/07/17 [SYMBICORT 160/4.5mcg -] Epoetin Orlando [Procrit] 10,000 unit IJ MOWEFR 12/07/17 Insulin Aspart [Novolog Flexpen] 5 unit SQ TIDCM 12/07/17 Iron Polysaccharide Complex 150 mg PO DAILY 12/07/17 [Ferrex 150] Silver Sulfadiazine 1% Top Cr 1 applic TP BID 12/07/17 [Silvadene -] Warfarin Sodium [Coumadin] 3 mg PO HS 12/07/17 Furosemide [Lasix -] 80 mg PO Q48H #20 tablet 12/21/17 Simethicone [Mylicon -] 80 mg PO QID PRN #20 tab.chew 12/21/17 Bacitracin - [Bacitracin Topical 500 unit TP BID MDD R NECK 12/29/17 Ointment -] Vitamin B Comp W-C [Nephro-Essie -] 0.8 mg PO DAILY 12/29/17 Zinc Sulfate 220 mg PO DAILY MDD for 10 days 12/29/17 Isosorbide Mononitrate [Imdur -] 60 mg PO DAILY tab.sr.24h 01/02/18 Lisinopril [Prinivil] 5 mg PO DAILY tablet 01/02/18 Sennosides [Senna -] 2 tab PO HS tablet 01/02/18 Warfarin Na [Coumadin -] 3 mg PO DAILY@1800 tablet 01/02/18 Acetaminophen [Tylenol .Regular 325 mg PO Q4H PRN 02/25/18 Strength -] Oxycodone HCl/Acetaminophen 2 tab PO Q6H PRN 02/25/18 [Percocet 5-325 mg Tablet] Polyethylene Glycol 3350 [Miralax 17 gm PO DAILY 02/25/18 119 gm Btl -] REVIEW OF SYSTEMS CONSTITUTIONAL: Absent: fever, chills, diaphoresis, generalized weakness, malaise, loss of appetite, weight change HEENT: Absent: rhinorrhea, nasal congestion, throat pain, throat swelling, difficulty swallowing, mouth swelling, ear pain, eye pain, visual changes CARDIOVASCULAR: Absent: chest pain, syncope, palpitations, irregular heart rate, lightheadedness , peripheral edema RESPIRATORY: Absent: cough, shortness of breath, dyspnea with exertion, orthopnea, wheezing, stridor, hemoptysis GASTROINTESTINAL: Absent: abdominal pain, abdominal distension, nausea, vomiting, diarrhea, constipation, melena, hematochezia GENITOURINARY: Absent: dysuria, frequency, urgency, hesitancy, hematuria, flank pain, genital pain MUSCULOSKELETAL: Absent: myalgia, arthralgia, joint swelling, back pain, neck pain SKIN: Absent: rash, itching, pallor HEMATOLOGIC/IMMUNOLOGIC: Absent: easy bleeding, easy bruising, lymphadenopathy, frequent infections ENDOCRINE: Absent: unexplained weight gain, unexplained weight loss, heat intolerance, cold intolerance NEUROLOGIC: Absent: headache, focal weakness or paresthesias, dizziness, unsteady gait, seizure, mental status changes, bladder or bowel incontinence PSYCHIATRIC: Absent: anxiety, depression, suicidal or homicidal ideation, hallucinations. PHYSICAL EXAMINATION Vital Signs - 24 hr 06/29/18 06/29/18 06/29/18 13:25 15:15 17:21 Temperature 98.2 F 99.6 F 98.5 F Pulse Rate 73 Pulse Rate [ 86 Right] Respiratory 20 18 Rate Blood Pressure 161/100 Blood Pressure 111/44 L [Right Arm] O2 Sat by Pulse 100 100 Oximetry (%) GENERAL: Awake, alert, and fully oriented, in no acute distress. HEAD: Normal with no signs of trauma. EYES: Pupils equal, round and reactive to light, extraocular movements intact, sclera anicteric, conjunctiva clear. No lid lag. EARS, NOSE, THROAT: Ears normal, nares patent, oropharynx clear without exudates. Moist mucous membranes. NECK: Normal range of motion, supple without lymphadenopathy, JVD, or masses. LUNGS: Breath sounds equal, clear to auscultation bilaterally. No wheezes, and no crackles. No accessory muscle use. HEART: Regular rate and rhythm, normal S1 and S2 without murmur, rub or gallop. ABDOMEN: Soft, nontender, not distended, normoactive bowel sounds, no guarding, no rebound, no masses. No hepatomegaly or splenomegaly. MUSCULOSKELETAL: Normal range of motion at all joints. No bony deformities or tenderness. No CVA tenderness. UPPER EXTREMITIES: 2+ pulses, warm, well-perfused. No cyanosis. No clubbing. No peripheral edema. LOWER EXTREMITIES: 2+ pulses, warm, well-perfused. No calf tenderness. No peripheral edema. NEUROLOGICAL: Cranial nerves II-XII intact. Normal speech. Normal gait. PSYCHIATRIC: Cooperative. Good eye contact. Appropriate mood and affect. SKIN: Warm, dry, normal turgor, no rashes or lesions noted, normal capillary refill. Laboratory Results - last 24 hr 06/29/18 06/29/18 06/29/18 13:30 13:30 13:30 WBC 8.6 RBC 3.09 L Hgb 11.0 Hct 32.3 L MCV 104.6 H MCH 35.5 H D MCHC 33.9 RDW 16.6 H Plt Count 178 MPV 8.7 D Absolute Neuts (auto) 5.3 Neutrophils % 62.1 Lymphocytes % 25.1 D Monocytes % 9.0 Eosinophils % 3.1 Basophils % 0.7 Nucleated RBC % 0 PT with INR 58.70 H INR 4.90 H* PTT (Actin FS) 44.8 H VBG pH POC VBG pCO2 POC VBG pO2 VBG HCO3 VBG O2 Sat (Daniel) VBG Base Excess Sodium 133 L Potassium 5.4 H Chloride 97 L Carbon Dioxide 26 Anion Gap 10 BUN 31 H Creatinine 5.6 H Creat Clearance w eGFR 7.46 Random Glucose 86 Lactic Acid Calcium 8.3 L Total Bilirubin 0.2 AST 17 ALT 14 Alkaline Phosphatase 58 Creatine Kinase 144 CK-MB (CK-2) 1.9 Troponin I < 0.02 B-Natriuretic Peptide 3206.1 H Total Protein 6.0 L Albumin 2.5 L Urine Color Urine Appearance Urine pH Ur Specific [place] Urine Protein Urine Glucose (UA) Urine Ketones Urine Blood Urine Nitrite Urine Bilirubin Urine Urobilinogen Ur Leukocyte Esterase Urine WBC (Auto) Urine RBC (Auto) Urine Casts (Auto) U Pathogenic Cast Auto U Epithel Cells (Auto) U Sm Round Cell (Auto) Urine Crystals (Auto) Urine Bacteria (Auto) Urine Yeast (Auto) 06/29/18 06/29/18 06/29/18 15:15 15:15 15:49 WBC RBC Hgb Hct MCV MCH MCHC RDW Plt Count MPV Absolute Neuts (auto) Neutrophils % Lymphocytes % Monocytes % Eosinophils % Basophils % Nucleated RBC % PT with INR INR PTT (Actin FS) VBG pH 7.32 POC VBG pCO2 56.9 H POC VBG pO2 58.2 H VBG HCO3 28.5 VBG O2 Sat (Daniel) 89.1 H VBG Base Excess 2.0 Sodium Potassium Chloride Carbon Dioxide Anion Gap BUN Creatinine Creat Clearance w eGFR Random Glucose Lactic Acid 1.9 Calcium Total Bilirubin AST ALT Alkaline Phosphatase Creatine Kinase CK-MB (CK-2) Troponin I B-Natriuretic Peptide Total Protein Albumin Urine Color Yellow Urine Appearance Clear Urine pH 7.0 D Ur Specific [place] 1.020 Urine Protein 3+ Urine Glucose (UA) Negative Urine Ketones Trace Urine Blood 3+ Urine Nitrite Negative Urine Bilirubin Negative Urine Urobilinogen 0.2 Ur Leukocyte Esterase 3+ Urine WBC (Auto) >100 Urine RBC (Auto) 10-30 Urine Casts (Auto) No Result Required. U Pathogenic Cast Auto No Result Required. U Epithel Cells (Auto) Rare U Sm Round Cell (Auto) No Result Required. Urine Crystals (Auto) No Result Required. Urine Bacteria (Auto) Many Urine Yeast (Auto) No Result Required. ASSESSMENT/PLAN: Celine Muse is a 72 yr old F, ESRD MWF HD (via permacath installed in the right chest wall), COPD, diastolic CHF, Afib (on Coumadin), chronic venous insufficiency, IDDM, GERD, UTI, HTN, HLD, anemia, asthma, and osteoarthritis admitted under observation for Admitting Diagnosis UTI r/o Sepsis Chronic Problems ESRD HD (MWF) COPD CHF, diastolic Afib, chronic IDDM GERD HTN/HLD Anemia Asthma A/P #UTI r/o Sepsis -Urine, blood cx pending -received zosyn in ED, cont -UA WBC > 100, +blood -lactic wnl, afebrile #ESRD -HD possibly tonight -seen by Renal in ED #CHF, chronic diastolic #Afib, chronic #HTN/HLD -on lasix, -BNP >3,000 -coumadin on hold tonight -INR 4.9, recheck in AM -resume [employer] meds, hold if BP low < 110/60 -EKG: NSR -Trop neg #IDDM -on ISC, Levemir -diabetic/renal diet -FS AC/HS #Hyperkalemia -K + 5.4 -received Kayexelate in ED #COPD #asthma -oxygen 2L NC -on symbicort #Anemia,chronic -Hg stable -monitor CBC #Pressure Ulcers-POA -wound culture pending -T&P Q2hrs -wound care daily Full Code Visit type - Emergency Visit Emergency Visit: Yes ED Registration Date: 06/29/18 Care time: The patient presented to the Emergency Department on the above date and was hospitalized for further evaluation of their emergent condition. - New Patient This patient is new to me today: Yes Date on this admission: 06/29/18 - Critical Care Critical Care patient: No
[2018-06-29] MEDS ORDERED: SIMETHICONE 80 MG TAB.CHEW (FP) PO PRN (20:03)
--- NOTE | 2018-06-29 20:21 | CONSULT ---
Consult Consult Specialty:: Nephrology Reason for Consultation:: ESRD - History of Present Illness Chief Complaint: sent in for hypotension History of Present Illness: Pt is a 72 year old female with pmhx of ESRD on MWF schedule, HTN, DM, morbid obesity, COPD, a-fib, arthritis, HTN, and HLD who was sent on from the [place] for hypotension and change in mental status. She was diagnosed with UTI and admitted to the hospital. Her mental status is markedly improved. She is known to me from previous admissions. She had a low grade fever and was hypotensive with a bp of 84/49. Her last HD session was yesterday. She denies shortness of breath. - History Source History Provided By: Patient, Medical Record - Past Medical History Cardio/Vascular: Yes: AFIB (anticoagulants for 5 yrs , on coumadin), CHF, HTN, Hyperlipdemia Pulmonary: Yes: Asthma, COPD Gastrointestinal: Yes: Constipation, GERD, Other (does not remember about colonscopy ) Renal/: Yes: Renal Inusuff (ESRD on HD), UTI (h/o recurrent uti) Psych: Yes: Depression (because son at age 38 yrs by sucide ) Musculoskeletal: Yes: Osteoarthritis Endocrine: Yes: Diabetes Mellitus (IDDM since age 40 yrs ), Other (morbid obesity ) Additional Medical History: morbid obesity - Past Surgical History Past Surgical History: Yes: (40 years ago per patient), Tubal Ligation - Alcohol/Substance Use Hx Alcohol Use: No History of Substance Use: reports: None - Smoking History Smoking history: Unknown if ever smoked Have you smoked in the past 12 months: No Aproximately how many cigarettes per day: 0 - Social History Usual Living Arrangement: Custodial (for 2 yrs at [facility]) ADL: Support Services History of Recent Travel: No Home Medications - Allergies Allergies/Adverse Reactions: Allergies Allergy/AdvReac Type Severity Reaction Status Date / Time No Known Allergies Allergy Verified 06/29/18 13:51 - Home Medications Home Medications: Ambulatory Orders Atorvastatin Calcium 10 mg PO HS 10/14/17 Cholecalciferol (Vitamin D3) [Vitamin D3] 1,000 unit PO DAILY 10/14/17 Docusate Sodium [Colace] 100 mg PO HS 10/14/17 Folic Acid 1 mg PO DAILY 10/14/17 Gabapentin [Neurontin -] 100 mg PO Q8H 10/14/17 Insulin Detemir [Levemir Flextouch] 33 unit SQ HS 10/14/17 Lactulose 10 gm PO HS 10/14/17 Metoprolol Tartrate 50 mg PO Q8H 10/14/17 Multivitamin [Multiple Vitamins] 1 each PO DAILY 10/14/17 Ranitidine HCl 150 mg PO HS 10/14/17 Budesonide/Formeterol Fumarate [SYMBICORT 160/4.5mcg -] 1 inh PO BID 12/07/17 Epoetin Orlando [Procrit] 10,000 unit IJ MOWEFR 12/07/17 Insulin Aspart [Novolog Flexpen] 5 unit SQ TIDCM 12/07/17 Iron Polysaccharide Complex [Ferrex 150] 150 mg PO DAILY 12/07/17 Silver Sulfadiazine 1% Top Cr [Silvadene -] 1 applic TP BID 12/07/17 Warfarin Sodium [Coumadin] 3 mg PO HS 12/07/17 Furosemide [Lasix -] 80 mg PO Q48H #20 tablet 12/21/17 Simethicone [Mylicon -] 80 mg PO QID PRN #20 tab.chew 12/21/17 Bacitracin - [Bacitracin Topical Ointment -] 500 unit TP BID MDD R NECK Vitamin B Comp W-C [Nephro-Essie -] 0.8 mg PO DAILY 12/29/17 Zinc Sulfate 220 mg PO DAILY MDD for 10 days 12/29/17 Isosorbide Mononitrate [Imdur -] 60 mg PO DAILY tab.sr.24h 01/02/18 Lisinopril [Prinivil] 5 mg PO DAILY tablet 01/02/18 Sennosides [Senna -] 2 tab PO HS tablet 01/02/18 Warfarin Na [Coumadin -] 3 mg PO DAILY@1800 tablet 01/02/18 Acetaminophen [Tylenol .Regular Strength -] 325 mg PO Q4H PRN 02/25/18 Oxycodone HCl/Acetaminophen [Percocet 5-325 mg Tablet] 2 tab PO Q6H PRN Polyethylene Glycol 3350 [Miralax 119 gm Btl -] 17 gm PO DAILY 02/25/18 Family Disease History - Family Disease History Family Disease History: Diabetes: Father ( age 44, complications DM), Mother ( age 83), Daughter (Alive, ESRD), Heart Disease: Mother, Other: Son (, age 38 suicide), Daughter Review of Systems - Review of Systems Constitutional: reports: Chills, Malaise. denies: Fever Eyes: reports: No Symptoms HENT: reports: No Symptoms Neck: reports: No Symptoms Cardiovascular: reports: No Symptoms Respiratory: reports: No Symptoms Gastrointestinal: reports: No Symptoms Genitourinary: reports: Dysuria Musculoskeletal: reports: Muscle Weakness Neurological: reports: Change in LOC Endocrine: reports: No Symptoms Hematology/Lymphatic: reports: No Symptoms Psychiatric: reports: No Symptoms Physical Exam Vital Signs: Vital Signs Temperature 98.5 F 06/29/18 17:21 Pulse Rate 86 06/29/18 17:21 Respiratory Rate 18 06/29/18 17:21 Blood Pressure 111/44 L 06/29/18 17:21 O2 Sat by Pulse Oximetry (%) 100 06/29/18 17:21 Constitutional: Yes: Calm Eyes: Yes: Conjunctiva Clear HENT: Yes: Atraumatic Neck: Yes: Supple Cardiovascular: Yes: S1, S2 Respiratory: Yes: CTA Bilaterally Gastrointestinal: Yes: Soft, Abdomen, Obese Renal/: Yes: WNL Musculoskeletal: Yes: WNL Edema: LLE: 1+, RLE: 1+ Neurological: Yes: Alert, Oriented Psychiatric: Yes: Oriented Labs: CBC, BMP 06/29/18 13:30 06/29/18 13:30 Imaging - Results Chest X-ray: Report Reviewed Problem List - Problems (1) UTI (urinary tract infection) Code(s): N39.0 - URINARY TRACT INFECTION, SITE NOT SPECIFIED Qualifiers: Urinary tract infection type: site unspecified Hematuria presence: without hematuria Qualified Code(s): N39.0 - Urinary tract infection, site not specified (2) End stage renal disease on dialysis Code(s): N18.6 - END STAGE RENAL DISEASE; Z99.2 - DEPENDENCE ON RENAL DIALYSIS Assessment/Plan Current Medications Generic Name Dose Route Start Last Admin Trade Name Freq PRN Reason Stop Dose Admin Budesonide/Formoterol Fumarate 2 puff 06/29/18 22:00 Symbicort 160/4.5mcg - IH BID BRYANT Furosemide 80 mg 06/29/18 20:30 Lasix - PO SuTuThSa@1000 [facility] Insulin Aspart 5 units 06/29/18 20:15 Novolog Vial SQ TIDCM [facility] Isosorbide Mononitrate 60 mg 06/30/18 10:00 Imdur - PO DAILY [facility] Multivit/Ca Carb/B Cmplx/FA/Prenat 1 tablet 06/30/18 10:00 Nephro-Essie - PO DAILY [facility] Polyethylene Glycol 17 gm 06/30/18 10:00 Miralax (For Daily Use) - PO DAILY [facility] Polysaccharide Iron Complex 150 mg 06/30/18 10:00 Niferex-150 - PO DAILY [facility] Senna 2 tab 06/29/18 22:00 Senna - PO HS [facility] Silver Sulfadiazine 1 applic 06/29/18 22:00 Silvadene - TP BID [facility] Simethicone 80 mg 06/29/18 20:03 Mylicon - PO Q6H PRN DYSPEPSIA Zinc Sulfate 220 mg 06/30/18 10:00 Orazinc - PO DAILY [facility] Impression 1. ESRD 2. obesity 3. hyperlipidemia 4. HTN 5. DM 6. CHF 7. CAD 8. anemia 9. a-fib 10. iron deficiency 11. UTI 12. sepsis Plan - follow cultures - HD tomorrow, unable to dialyze today secondary to staffing - treat potassium medically - monitor bp - pt did get abx in er - bp appears improved
[2018-06-29] MEDS ORDERED: SODIUM POLYSTYRENE SULFONATE 15 GM/60 ML BOTTLE ONE (20:23)
[2018-06-29] MEDS ORDERED: FUROSEMIDE 40 MG TABLET (FP) ONE (20:23)
[2018-06-29] MEDS ORDERED: INSULIN (NOVOLOG) ASPART 100 UNITS/ML 10ML VIAL ONE (20:24)
[2018-06-29] MEDS ORDERED: SODIUM CHLORIDE 250 ML IV PRN (20:25)
[2018-06-29] MEDS: FUROSEMIDE 40 MG TABLET (FP) PO SCH (20:45)
[2018-06-29] MEDS: INSULIN (NOVOLOG) ASPART 100 UNITS/ML 10ML VIAL SQ SCH (20:45)
[2018-06-30] MEDS: SENNOSIDES 8.6MG TABLET (FP) PO SCH ×2 (00:01→22:33)
[2018-06-30] MEDS: oxyCODONE HCL 5 MG TABLET PO PRN ×3 (00:48→17:24)
[2018-06-30] MEDS: ACETAMINOPHEN 325 MG TABLET (FP) PO PRN ×2 (00:50→17:25)
[2018-06-30] MEDS: BUDESONIDE/FORMETEROL FUMARATE 160/4.5 mcg INHALER IH SCH ×3 (00:51→22:37)
[2018-06-30] MEDS: SILVER SULFADIAZINE 1% TOP CREAM 50 GM JAR TP SCH ×3 (00:52→22:38)
[2018-06-30] MEDS ORDERED: PIPERACILLIN/TAZOB 2.25 GM 2.25 GM in DEXTROSE 5%-WATER - 50 ML IVPB ONE (04:00)
[2018-06-30] MEDS ORDERED: DEXTROSE 5%-WATER - 50 ML IVPB ONE ×2 (04:03→16:43)
[2018-06-30] MEDS ORDERED: PIPERACILLIN/TAZOBACTAM 2.25 GM VIAL IVPB ONE ×2 (04:03→16:43)
[2018-06-30] MEDS: GABAPENTIN 100 MG CAPSULE (FP) PO SCH ×3 (06:38→22:35)
[2018-06-30] MEDS: METOPROLOL TARTRATE 50 MG TABLET (FP) PO SCH ×3 (06:38→22:58)
[2018-06-30] MEDS ORDERED: PIPERACILLIN/TAZOB 2.25 GM 2.25 GM in DEXTROSE 5%-WATER - 50 ML IVPB SCH (07:00)
[2018-06-30] MEDS: INSULIN (NOVOLOG) ASPART 100 UNITS/ML 10ML VIAL SQ SCH ×3 (08:00→17:15)
[2018-06-30 08:48] LABS: BASO % 0.6 % (0-2.0); EOS % 2.9 % (0-4.5); HEMATOCRIT 29.4 % (32.4-45.2); HEMOGLOBIN 9.9 GM/dL (10.7-15.3); LYMPH % 30.6 % (8-40); MCH 34.7 pg (25.7-33.7); MCHC 33.5 g/dl (32.0-36.0); MEAN CELL VOLUME 103.7 fl (80-96); MEAN PLT VOLUME 8.2 fl (7.5-11.1); MONO % 9.5 % (3.8-10.2); NEUT % 56.4 % (42.8-82.8); PLATELET COUNT 169 K/MM3 (134-434); RBC 2.84 M/mm3 (3.60-5.2); RDW 16.2 % (11.6-15.6); WHITE BLOOD COUNT 7.1 K/mm3 (4.0-10.0)
[2018-06-30 09:00] LABS: PROTHROMBIN TIME (PATIENT) 60.9 SEC (9.7-13.0)
[2018-06-30 09:11] LABS: ALBUMIN 2.5 g/dl (3.4-5.0); ALK PHOS 53 U/L (45-117); ANION GAP 11 MMOL/L (8-16); BILIRUBIN,TOTAL 0.2 mg/dL (0.2-1); BLOOD UREA NITROGEN 38 mg/dL (7-18); CALCIUM 8.6 mg/dL (8.5-10.1); CHLORIDE 98 mmol/L (98-107); CO2 28 mmol/L (21-32); CREATININE 6.6 mg/dL (0.55-1.3); GLUCOSE,RANDOM 74 mg/dL (74-106); MAGNESIUM 2.4 mg/dL (1.8-2.4); SGOT/AST 11 U/L (15-37); SGPT/ALT 14 U/L (13-61); SODIUM 138 mmol/L (136-145); TOT PROT 5.8 g/dl (6.4-8.2)
[2018-06-30 09:40] LABS: INR 5.08 (0.83-1.09)
[2018-06-30] MEDS: ISOSORBIDE MONONITRATE 60 MG TAB.SR.24H (FP) PO SCH (10:47)
[2018-06-30] MEDS: POLYETHYLENE GLYCOL 3350 119 GM BTL PO SCH (10:47)
[2018-06-30] MEDS: FOLIC ACID 1 MG TABLET (FP) PO SCH (10:47)
[2018-06-30] MEDS: IRON POLYSACCHARIDES 150 MG CAPSULE PO SCH (10:48)
[2018-06-30] MEDS: VITAMIN B COMP W-C 1 EA TABLET PO SCH (10:48)
[2018-06-30] MEDS: LISINOPRIL 5 MG TABLET (FP) PO SCH (10:48)
[2018-06-30] MEDS: ZINC SULFATE 220 MG CAPSULE (FP) PO SCH (10:48)
--- NOTE | 2018-06-30 11:21 | PN ---
Progress Note (short form) - Note Progress Note: Pt seen/ examined in dialysis comfortable sleeping afebrile chart reviewed Vital Signs Temp 97.8 F 06/30/18 06:00 Pulse 76 06/30/18 06:00 Resp 20 06/30/18 03:26 BP 137/74 06/30/18 06:00 Pulse Ox 100 06/30/18 03:26 Intake & Output 06/29/18 06/29/18 06/30/18 11:59 23:59 11:59 Intake Total 200 50 Balance 200 50 Weight 271 lb 6 oz 275 lb 4.8 oz Intake: IVPB 50 Oral 200 Other: Voiding Method Diaper Diaper Height 5 ft Body Mass Index (BMI) 52.9 Weight Measurement Method [facility] in Bedscale Microbiology 06/29/18 15:15 Wound Culture - Preliminary Back Staphylococcus Latex Coag Pos Non Lactose Fermenting Gnb Pending Organism Pending Organism#2 Lactose Fermenting Neg Bacilli Active Medications Acetaminophen (Tylenol -) 650 mg PO Q6H PRN PRN Reason: BACK PAIM SCALE 7-10 Last Admin: 06/30/18 00:50 Dose: 650 mg Atorvastatin Calcium (Lipitor -) 10 mg PO [facility] Budesonide/Formoterol Fumarate (Symbicort 160/4.5mcg -) 2 puff IH BID [facility] Last Admin: 06/30/18 10:48 Dose: Not Given Docusate Sodium (Colace -) 100 mg PO [facility] Folic Acid (Folic Acid -) 1 mg PO DAILY [facility] Last Admin: 06/30/18 10:47 Dose: Not Given Furosemide (Lasix -) 80 mg PO SuTuThSa@1000 [facility] Last Admin: 06/29/18 20:45 Dose: 80 mg Gabapentin (Neurontin -) 100 mg PO TID [facility] Last Admin: 06/30/18 06:38 Dose: 100 mg Sodium Chloride (Normal Saline -) 250 mls @ 3,000 mls/hr IV PRN PRN PRN Reason: Hypotension during Dialysis Stop: 06/30/18 20:25 Piperacillin Sod/Tazobactam (Sod 2.25 gm/ Dextrose) 50 mls @ 100 mls/hr IVPB BID [facility]; Protocol Insulin Aspart (Novolog Vial) 5 units SQ TIDCM [facility] Last Admin: 06/30/18 08:00 Dose: Not Given Insulin Detemir (Levemir Vial) 33 units SQ HS [facility] Isosorbide Mononitrate (Imdur -) 60 mg PO DAILY [facility] Last Admin: 06/30/18 10:47 Dose: Not Given Lisinopril (Prinivil) 5 mg PO DAILY [facility] Last Admin: 06/30/18 10:48 Dose: Not Given Metoprolol Tartrate (Lopressor -) 50 mg PO TID [facility] Last Admin: 06/30/18 06:38 Dose: 50 mg Multivit/Ca Carb/B Cmplx/FA/Prenat (Nephro-Essie -) 1 tablet PO DAILY [facility] Last Admin: 06/30/18 10:48 Dose: Not Given Oxycodone HCl (Roxicodone -) 10 mg PO Q6H PRN PRN Reason: BACK PAIN SCALE 7-10 Last Admin: 06/30/18 00:48 Dose: 10 mg Polyethylene Glycol (Miralax (For Daily Use) -) 17 gm PO DAILY [facility] Last Admin: 06/30/18 10:47 Dose: Not Given Polysaccharide Iron Complex (Niferex-150 -) 150 mg PO DAILY [facility] Last Admin: 06/30/18 10:48 Dose: Not Given Ranitidine HCl (Zantac -) 150 mg PO [facility] Senna (Senna -) 2 tab PO [facility] Last Admin: 06/30/18 00:01 Dose: Not Given Silver Sulfadiazine (Silvadene -) 1 applic TP BID [facility] Last Admin: 06/30/18 00:52 Dose: 1 applic Simethicone (Mylicon -) 80 mg PO Q6H PRN PRN Reason: DYSPEPSIA Zinc Sulfate (Orazinc -) 220 mg PO DAILY [facility] Last Admin: 06/30/18 10:48 Dose: Not Given CBC, BMP 06/30/18 07:16 06/30/18 07:16 INR, PTT INR 5.08 (0.83-1.09) H* 06/30/18 07:16 urine - culture-- Pending Physical Exam Morbidly obese lungs- Bilateral Breath sounds Anteriorly cvs- s1, s2 rrr abd- soft/ obese ext- Chronic venous stasis A/P In summary Celine Muse is a 72 yr old F, ESRD MWF HD (via permacath installed in the right chest wall), COPD, diastolic CHF, Afib (on Coumadin), chronic venous insufficiency, IDDM, GERD, UTI, HTN, HLD, anemia, asthma, and osteoarthritis admitted under observation continue present care hold coumadin h/h stable abx --got zosyn will consult i/d f/u cultures will follow Problem List - Problems (1) UTI (urinary tract infection) Code(s): N39.0 - URINARY TRACT INFECTION, SITE NOT SPECIFIED Qualifiers: Urinary tract infection type: site unspecified Hematuria presence: without hematuria Qualified Code(s): N39.0 - Urinary tract infection, site not specified (2) Afib Code(s): I48.91 - UNSPECIFIED ATRIAL FIBRILLATION Qualifiers: Atrial fibrillation type: persistent Qualified Code(s): I48.1 - Persistent atrial fibrillation (3) Anemia Code(s): D64.9 - ANEMIA, UNSPECIFIED Qualifiers: Anemia type: due to chronic kidney disease Chronic kidney disease stage: on chronic dialysis Qualified Code(s): N18.6 - End stage renal disease; D63.1 - Anemia in chronic kidney disease; Z99.2 - Dependence on renal dialysis (4) End stage renal disease on dialysis Code(s): N18.6 - END STAGE RENAL DISEASE; Z99.2 - DEPENDENCE ON RENAL DIALYSIS (5) Functional quadriplegia Code(s): R53.2 - FUNCTIONAL QUADRIPLEGIA (6) Morbid obesity Code(s): E66.01 - MORBID (SEVERE) OBESITY DUE TO EXCESS CALORIES (7) Supratherapeutic INR Code(s): R79.1 - ABNORMAL COAGULATION PROFILE (8) Toxic metabolic encephalopathy Code(s): G92 - TOXIC ENCEPHALOPATHY
[2018-06-30 13:05] VITALS: BMI 53.6
--- NOTE | 2018-06-30 13:33 | PN ---
Progress Note, Physician History of Present Illness: Pt seen and examined at bedside. She is tolerating HD. She denies shortness of breath. - Current Medication List Current Medications: Active Medications Acetaminophen (Tylenol -) 650 mg PO Q6H PRN PRN Reason: BACK PAIM SCALE 7-10 Last Admin: 06/30/18 00:50 Dose: 650 mg Atorvastatin Calcium (Lipitor -) 10 mg PO [facility] Budesonide/Formoterol Fumarate (Symbicort 160/4.5mcg -) 2 puff IH BID [facility] Last Admin: 06/30/18 10:48 Dose: Not Given Docusate Sodium (Colace -) 100 mg PO [facility] Folic Acid (Folic Acid -) 1 mg PO DAILY [facility] Last Admin: 06/30/18 10:47 Dose: Not Given Furosemide (Lasix -) 80 mg PO SuTuThSa@1000 [facility] Last Admin: 06/29/18 20:45 Dose: 80 mg Gabapentin (Neurontin -) 100 mg PO TID [facility] Last Admin: 06/30/18 06:38 Dose: 100 mg Sodium Chloride (Normal Saline -) 250 mls @ 3,000 mls/hr IV PRN PRN PRN Reason: Hypotension during Dialysis Stop: 06/30/18 20:25 Piperacillin Sod/Tazobactam (Sod 2.25 gm/ Dextrose) 50 mls @ 100 mls/hr IVPB BID [facility]; Protocol Insulin Aspart (Novolog Vial) 5 units SQ TIDCM [facility] Last Admin: 06/30/18 08:00 Dose: Not Given Insulin Detemir (Levemir Vial) 33 units SQ [facility] Isosorbide Mononitrate (Imdur -) 60 mg PO DAILY [facility] Last Admin: 06/30/18 10:47 Dose: Not Given Lisinopril (Prinivil) 5 mg PO DAILY [facility] Last Admin: 06/30/18 10:48 Dose: Not Given Metoprolol Tartrate (Lopressor -) 50 mg PO TID [facility] Last Admin: 06/30/18 06:38 Dose: 50 mg Multivit/Ca Carb/B Cmplx/FA/Prenat (Nephro-Essie -) 1 tablet PO DAILY [facility] Last Admin: 06/30/18 10:48 Dose: Not Given Oxycodone HCl (Roxicodone -) 10 mg PO Q6H PRN PRN Reason: BACK PAIN SCALE 7-10 Last Admin: 06/30/18 11:24 Dose: 10 mg Polyethylene Glycol (Miralax (For Daily Use) -) 17 gm PO DAILY [facility] Last Admin: 06/30/18 10:47 Dose: Not Given Polysaccharide Iron Complex (Niferex-150 -) 150 mg PO DAILY [facility] Last Admin: 06/30/18 10:48 Dose: Not Given Ranitidine HCl (Zantac -) 150 mg PO [facility] Senna (Senna -) 2 tab PO HS [facility] Last Admin: 06/30/18 00:01 Dose: Not Given Silver Sulfadiazine (Silvadene -) 1 applic TP BID [facility] Last Admin: 06/30/18 00:52 Dose: 1 applic Simethicone (Mylicon -) 80 mg PO Q6H PRN PRN Reason: DYSPEPSIA Zinc Sulfate (Orazinc -) 220 mg PO DAILY [facility] Last Admin: 06/30/18 10:48 Dose: Not Given - Objective Vital Signs: Vital Signs Temperature 98.2 F 06/30/18 09:35 Pulse Rate 100 H 06/30/18 12:40 Respiratory Rate 18 06/30/18 12:40 Blood Pressure 118/37 L 06/30/18 12:40 O2 Sat by Pulse Oximetry (%) 100 06/30/18 03:26 Constitutional: Yes: Calm Eyes: Yes: Conjunctiva Clear HENT: Yes: Atraumatic Neck: Yes: Supple Cardiovascular: Yes: S1, S2 Respiratory: Yes: CTA Bilaterally, On Nasal O2 Gastrointestinal: Yes: Normal Bowel Sounds, Soft, Abdomen, Obese Genitourinary: Yes: Incontinence Edema: Yes Edema: LLE: 1+, RLE: 1+ Neurological: Yes: Oriented Psychiatric: Yes: Oriented Labs: CBC, BMP 06/30/18 07:16 06/30/18 07:16 INR, PTT INR 5.08 (0.83-1.09) H* 06/30/18 07:16 Problem List - Problems (1) UTI (urinary tract infection) Code(s): N39.0 - URINARY TRACT INFECTION, SITE NOT SPECIFIED Qualifiers: Urinary tract infection type: site unspecified Hematuria presence: without hematuria Qualified Code(s): N39.0 - Urinary tract infection, site not specified (2) End stage renal disease on dialysis Code(s): N18.6 - END STAGE RENAL DISEASE; Z99.2 - DEPENDENCE ON RENAL DIALYSIS Assessment/Plan Current Medications Generic Name Dose Route Start Last Admin Trade Name Taiwo PRN Reason Stop Dose Admin Acetaminophen 650 mg 06/29/18 20:49 06/30/18 00:50 Tylenol - PO 650 mg Q6H PRN Administration BACK PAIM SCALE 7-10 Atorvastatin Calcium 10 mg 06/30/18 22:00 Lipitor - PO HS [facility] Budesonide/Formoterol Fumarate 2 puff 06/29/18 22:00 06/30/18 10:48 Symbicort 160/4.5mcg - IH Not Given BID [facility] Docusate Sodium 100 mg 06/30/18 22:00 Colace - PO HS [facility] Folic Acid 1 mg 06/30/18 10:00 06/30/18 10:47 Folic Acid - PO Not Given DAILY [facility] Furosemide 80 mg 06/29/18 20:30 06/29/18 20:45 Lasix - PO 80 mg SuTuThSa@1000 [facility] Administration Gabapentin 100 mg 06/30/18 06:00 06/30/18 06:38 Neurontin - PO 100 mg TID [facility] Administration Sodium Chloride 250 mls @ 3,000 mls/hr 06/29/18 20:25 Normal Saline - IV 06/30/18 20:25 PRN PRN Hypotension during Dialysis Piperacillin Sod/Tazobactam 50 mls @ 100 mls/hr 06/30/18 07:00 Sod 2.25 gm/ Dextrose IVPB BID [facility] Protocol Insulin Aspart 5 units 06/29/18 20:15 06/30/18 08:00 Novolog Vial SQ Not Given TIDCM [facility] Insulin Detemir 33 units 06/30/18 22:00 Levemir Vial SQ [facility] Isosorbide Mononitrate 60 mg 06/30/18 10:00 06/30/18 10:47 Imdur - PO Not Given DAILY [facility] Lisinopril 5 mg 06/30/18 10:00 06/30/18 10:48 Prinivil PO Not Given DAILY [facility] Metoprolol Tartrate 50 mg 06/30/18 06:00 06/30/18 06:38 Lopressor - PO 50 mg TID [facility] Administration Multivit/Ca Carb/B Cmplx/FA/Prenat 1 tablet 06/30/18 10:00 06/30/18 10:48 Nephro-Essie - PO Not Given DAILY [facility] Oxycodone HCl 10 mg 06/29/18 20:49 06/30/18 11:24 Roxicodone - PO 10 mg Q6H PRN Administration BACK PAIN SCALE 7-10 Polyethylene Glycol 17 gm 06/30/18 10:00 06/30/18 10:47 Miralax (For Daily Use) - PO Not Given DAILY [facility] Polysaccharide Iron Complex 150 mg 06/30/18 10:00 06/30/18 10:48 Niferex-150 - PO Not Given DAILY [facility] Ranitidine HCl 150 mg 06/30/18 22:00 Zantac - PO HS [facility] Senna 2 tab 06/29/18 22:00 06/30/18 00:01 Senna - PO Not Given HS [facility] Silver Sulfadiazine 1 applic 06/29/18 22:00 06/30/18 00:52 Silvadene - TP 1 applic BID [facility] Administration Simethicone 80 mg 06/29/18 20:03 Mylicon - PO Q6H PRN DYSPEPSIA Zinc Sulfate 220 mg 06/30/18 10:00 06/30/18 10:48 Orazinc - PO Not Given DAILY [facility] Impression 1. ESRD 2. obesity 3. hyperlipidemia 4. HTN 5. DM 6. CHF 7. CAD 8. anemia 9. a-fib 10. iron deficiency 11. UTI 12. sepsis Plan - HD today - follow cultures - bp is improved - mental status is improved - renal diet
--- NOTE | 2018-06-30 15:25 | PN ---
Progress Note (short form) - Note Progress Note: ID consult dictated imp/reccd 72 yo female admitted from the [facility] for confusion yesterday with temp 99 and low BP currently awake and alert no fevers or chills wasnt herself yesterday started on macrobid on06/28 for UTI missed HD once this week due to constipation s/p HD today feels well minimal urine output has a permacath for hd healing sacral ulcer stage 2 ?infection- UTI ?reaction to macrobid- not sure when it was started coagulopathy from warfarin afib esrd/hd continue zosyn, f/u cultures contact isolation MRSA Problem List - Problems (1) UTI (urinary tract infection) Code(s): N39.0 - URINARY TRACT INFECTION, SITE NOT SPECIFIED Qualifiers: Urinary tract infection type: site unspecified Hematuria presence: without hematuria Qualified Code(s): N39.0 - Urinary tract infection, site not specified (2) End stage renal disease on dialysis Code(s): N18.6 - END STAGE RENAL DISEASE; Z99.2 - DEPENDENCE ON RENAL DIALYSIS (3) Elevated INR (international normalized ratio) due to prior anticoagulant medication ingestion Code(s): R79.1 - ABNORMAL COAGULATION PROFILE (4) Afib Code(s): I48.91 - UNSPECIFIED ATRIAL FIBRILLATION Qualifiers: Atrial fibrillation type: persistent Qualified Code(s): I48.1 - Persistent atrial fibrillation
--- NOTE | 2018-06-30 16:57 | CONS ---
DATE OF CONSULTATION: DATE OF DICTATION: 06/30/2018 HISTORY OF PRESENT ILLNESS: This is a 72-year-old woman [facility] with low blood pressure, a temperature of 99, and some confusion at the penitentiary which apparently resolved after she came to the emergency room. She has a history of end-stage renal disease. She is on dialysis via PermCath, atrial fibrillation on Coumadin. She reports that she missed a session of dialysis at the penitentiary this week due to constipation which resolved with an enema. She was started on Macrobid on the for a possible UTI. It was noted that her urine was very strong smelling. She is currently awake and alert and oriented. She has no complaints. No chest pain, shortness of breath, headache, abdominal pain. She does note her sacral ulcer is uncomfortable. She makes very little urine. Since admission she has been afebrile, and she has felt well. She just had dialysis. PAST MEDICAL HISTORY: Is notable for end-stage renal disease since December. She has been on dialysis. History of COPD, diastolic heart failure, atrial fibrillation, chronic venous insufficiency, diabetes, GERD, hypertension, hyperlipidemia, anemia, asthma, and osteoarthritis. PAST SURGICAL HISTORY: Is notable for the PermCath. ALLERGIES: She has no known drug allergies. MEDICATIONS: Her medications at the [facility] included furosemide, simethicone, atorvastatin, gabapentin, folic acid, Colace, isosorbide mononitrate, metoprolol, multivitamins, Serax, Symbicort, insulin, MiraLax, Bacid, Benadryl, omega 3 capsules, Coumadin, Percocet. She was started on Macrobid on the and on Flomax. 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 She used to work at [employer] and she was a resident there until this fall when she required dialysis and she moved to [facility]. There is no history of cigarette, alcohol, or substance abuse. REVIEW OF SYSTEMS: As per HPI. She notes discomfort at her sacral ulcer site. PHYSICAL EXAMINATION: Vital Signs: She has been afebrile. Temperature is 98.5. Heart rate is 122, blood pressure 112/75. Respiratory rate is 20. HEENT: She is normocephalic. Her eyes are anicteric. Neck: Supple. Lungs: Clear to auscultation. Heart: Regular rate and rhythm. Abdomen: Soft, nontender. Extremities: Without any skin breakdown. Musculoskeletal: She has no suprapubic or CVA pain. Skin: She has a stage II sacral ulcer that is clean. PermCath site is without any erythema or drainage. DIAGNOSTIC DATA: Chest x-ray reveals cardiomegaly, no acute disease. Labs are notable for a white count of 7.1, hemoglobin 9.9, platelets are 169. INR is 5. BUN and creatinine are 38 and 6.6. LFTs are normal. Urinalysis is greater than 100 white cells and cultures are pending. She has a prior history of MRSA in the past of her wound. She has prior evidence of urinary tract infection as well. SUMMARY: This is an elderly woman admitted from the [facility]. Unclear if she has infection. She has been started on Zosyn which I will continue for now. Cultures have been sent. Would continue her on Zosyn at this time and follow up cultures. Further recommendations to follow. Would continue her MRSA isolation as well. PARIS TAYLOR M.D. [id number]
[2018-06-30] MEDS: PIPERACILLIN/TAZOB 2.25 GM 2.25 GM in DEXTROSE 5%-WATER - 50 ML IVPB SCH (17:17)
[2018-06-30] MEDS: RANITIDINE HCL 150 MG TABLET (FP) PO SCH (22:35)
[2018-06-30] MEDS: INSULIN (LEVEMIR) 100 UNITS/ML UNITS SQ SCH (22:35)
[2018-06-30] MEDS: DOCUSATE SODIUM 100 MG CAPSULE (FP) PO SCH (22:35)
[2018-06-30] MEDS: ATORVASTATIN CA 10 MG TABLET (FP) PO SCH (22:35)
[2018-07-01] MEDS ORDERED: PIPERACILLIN/TAZOBACTAM 2.25 GM VIAL IVPB ONE ×3 (01:12→16:04)
[2018-07-01] MEDS ORDERED: DEXTROSE 5%-WATER - 50 ML IVPB ONE ×3 (01:13→16:04)
[2018-07-01] MEDS: PIPERACILLIN/TAZOB 2.25 GM 2.25 GM in DEXTROSE 5%-WATER - 50 ML IVPB SCH ×3 (01:39→17:09)
[2018-07-01] MEDS: GABAPENTIN 100 MG CAPSULE (FP) PO SCH ×3 (06:08→22:46)
[2018-07-01] MEDS: METOPROLOL TARTRATE 50 MG TABLET (FP) PO SCH ×3 (06:08→22:45)
[2018-07-01] MEDS: oxyCODONE HCL 5 MG TABLET PO PRN ×3 (06:13→22:44)
[2018-07-01] MEDS: ACETAMINOPHEN 325 MG TABLET (FP) PO PRN ×3 (06:13→22:43)
[2018-07-01] MEDS: INSULIN (NOVOLOG) ASPART 100 UNITS/ML 10ML VIAL SQ SCH ×3 (08:00→17:00)
[2018-07-01 10:11] LABS: INR 3.44 (0.82-1.09); PROTHROMBIN TIME (PATIENT) 37.6 SEC (10.2-13.0)
[2018-07-01] MEDS ORDERED: PT OWN MED DRAWER 7, Y5N ONE (10:13)
[2018-07-01] MEDS: FUROSEMIDE 40 MG TABLET (FP) PO SCH (10:24)
[2018-07-01] MEDS: LISINOPRIL 5 MG TABLET (FP) PO SCH (10:24)
[2018-07-01] MEDS: IRON POLYSACCHARIDES 150 MG CAPSULE PO SCH (10:25)
[2018-07-01] MEDS: VITAMIN B COMP W-C 1 EA TABLET PO SCH (10:25)
[2018-07-01] MEDS: FOLIC ACID 1 MG TABLET (FP) PO SCH (10:25)
[2018-07-01] MEDS: ISOSORBIDE MONONITRATE 60 MG TAB.SR.24H (FP) PO SCH (10:25)
[2018-07-01] MEDS: ZINC SULFATE 220 MG CAPSULE (FP) PO SCH (10:25)
[2018-07-01] MEDS: SILVER SULFADIAZINE 1% TOP CREAM 50 GM JAR TP SCH ×3 (10:25→22:46)
[2018-07-01] MEDS: BUDESONIDE/FORMETEROL FUMARATE 160/4.5 mcg INHALER IH SCH ×2 (10:26→22:47)
[2018-07-01] MEDS: POLYETHYLENE GLYCOL 3350 119 GM BTL PO SCH (10:33)
--- NOTE | 2018-07-01 12:07 | PN ---
Progress Note (short form) - Note Progress Note: pt seen/ examined. awake/ comfortable morbidly obese all f/u noted afebrile Vital Signs Temp 98.2 F 07/01/18 07:55 Pulse 70 07/01/18 07:55 Resp 15 07/01/18 07:55 BP 146/52 L 07/01/18 07:55 Pulse Ox 100 07/01/18 04:00 Intake & Output 06/30/18 07/01/18 07/01/18 23:59 11:59 23:59 Intake Total 553 170 Balance 553 170 Weight 275 lb 276 lb 12.8 oz Intake: IVPB 50 50 Oral 503 120 Other: Voiding Method Bedpan Bedpan Bowel Movement No Height 5 ft Body Mass Index (BMI) 53.6 Weight Measurement Method Built in Bedscale Active Medications Acetaminophen (Tylenol -) 650 mg PO Q6H PRN PRN Reason: BACK PAIM SCALE 7-10 Last Admin: 07/01/18 06:13 Dose: 650 mg Atorvastatin Calcium (Lipitor -) 10 mg PO [facility] Last Admin: 06/30/18 22:35 Dose: 10 mg Budesonide/Formoterol Fumarate (Symbicort 160/4.5mcg -) 2 puff IH BID [facility] Last Admin: 07/01/18 10:26 Dose: 2 puff Docusate Sodium (Colace -) 100 mg PO HS [facility] Last Admin: 06/30/18 22:35 Dose: 100 mg Folic Acid (Folic Acid -) 1 mg PO DAILY [facility] Last Admin: 07/01/18 10:25 Dose: 1 mg Furosemide (Lasix -) 80 mg PO SuTuThSa@1000 [facility] Last Admin: 07/01/18 10:24 Dose: 80 mg Gabapentin (Neurontin -) 100 mg PO TID [facility] Last Admin: 07/01/18 06:08 Dose: 100 mg Sodium Chloride (Normal Saline -) 250 mls @ 3,000 mls/hr IV PRN PRN PRN Reason: Hypotension during Dialysis Stop: 06/30/18 20:25 Piperacillin Sod/Tazobactam (Sod 2.25 gm/ Dextrose) 50 mls @ 100 mls/hr IVPB Q8H-IV [facility]; Protocol Last Admin: 07/01/18 10:23 Dose: 100 mls/hr Insulin Aspart (Novolog Vial) 5 units SQ TIDCM [facility] Last Admin: 07/01/18 11:37 Dose: Not Given Insulin Detemir (Levemir Vial) 33 units SQ HS [facility] Last Admin: 06/30/18 22:35 Dose: 33 units Isosorbide Mononitrate (Imdur -) 60 mg PO DAILY [facility] Last Admin: 07/01/18 10:25 Dose: 60 mg Lisinopril (Prinivil) 5 mg PO DAILY [facility] Last Admin: 07/01/18 10:24 Dose: 5 mg Metoprolol Tartrate (Lopressor -) 50 mg PO TID [facility] Last Admin: 07/01/18 06:08 Dose: Not Given Multivit/Ca Carb/B Cmplx/FA/Prenat (Nephro-Essie -) 1 tablet PO DAILY [facility] Last Admin: 07/01/18 10:25 Dose: 1 tablet Oxycodone HCl (Roxicodone -) 10 mg PO Q6H PRN PRN Reason: BACK PAIN SCALE 7-10 Last Admin: 07/01/18 06:13 Dose: 10 mg Polyethylene Glycol (Miralax (For Daily Use) -) 17 gm PO DAILY [facility] Last Admin: 07/01/18 10:33 Dose: 17 gm Polysaccharide Iron Complex (Niferex-150 -) 150 mg PO DAILY [facility] Last Admin: 07/01/18 10:25 Dose: 150 mg Ranitidine HCl (Zantac -) 150 mg PO [facility] Last Admin: 06/30/18 22:35 Dose: 150 mg Senna (Senna -) 2 tab PO [facility] Last Admin: 06/30/18 22:33 Dose: 2 tab Silver Sulfadiazine (Silvadene -) 1 applic TP BID [facility] Last Admin: 07/01/18 10:27 Dose: 1 applic Simethicone (Mylicon -) 80 mg PO Q6H PRN PRN Reason: DYSPEPSIA Zinc Sulfate (Orazinc -) 220 mg PO DAILY [facility] Last Admin: 07/01/18 10:25 Dose: 220 mg CBC, BMP 06/30/18 07:16 06/30/18 07:16 INR, PTT INR 3.44 (0.82-1.09) H 07/01/18 07:50 Microbiology 06/29/18 15:15 Urine Culture - Preliminary Urine - Urine Clean Catch Lactose Fermenting Neg Bacilli 06/29/18 15:15 Gram Stain - Final Back Wound Culture - Preliminary Staphylococcus Latex Coag Pos Non Lactose Fermenting Gnb Pending Organism Pending Organism#2 Lactose Fermenting Neg Bacilli 06/29/18 15:15 Blood Culture - Preliminary Blood - Peripheral Venous NO GROWTH OBTAINED AFTER 24 HOURS, INCUBATION TO CONTINUE FOR 4 DAYS. 06/29/18 15:15 Blood Culture - Preliminary Blood - Peripheral Venous NO GROWTH OBTAINED AFTER 24 HOURS, INCUBATION TO CONTINUE FOR 4 DAYS. Physical Exam Morbidly obese lungs- Bilateral Breath sounds Anteriorly cvs- s1, s2 rrr abd- soft/ obese ext- Chronic venous stasis. A/P In summary Celine Muse is a 72 yr old F, ESRD MWF HD (via permacath installed in the right chest wall), COPD, diastolic CHF, Afib (on Coumadin), chronic venous insufficiency, IDDM, GERD, UTI, HTN, HLD, anemia, asthma, and osteoarthritis admitted under observation continue present care hold coumadin h/h stable abx -- zosyn f/u cultures will follow Problem List - Problems (1) UTI (urinary tract infection) Code(s): N39.0 - URINARY TRACT INFECTION, SITE NOT SPECIFIED Qualifiers: Urinary tract infection type: site unspecified Hematuria presence: without hematuria Qualified Code(s): N39.0 - Urinary tract infection, site not specified (2) Afib Code(s): I48.91 - UNSPECIFIED ATRIAL FIBRILLATION Qualifiers: Atrial fibrillation type: persistent Qualified Code(s): I48.1 - Persistent atrial fibrillation (3) Anemia Code(s): D64.9 - ANEMIA, UNSPECIFIED Qualifiers: Anemia type: due to chronic kidney disease Chronic kidney disease stage: on chronic dialysis Qualified Code(s): N18.6 - End stage renal disease; D63.1 - Anemia in chronic kidney disease; Z99.2 - Dependence on renal dialysis (4) End stage renal disease on dialysis Code(s): N18.6 - END STAGE RENAL DISEASE; Z99.2 - DEPENDENCE ON RENAL DIALYSIS (5) Functional quadriplegia Code(s): R53.2 - FUNCTIONAL QUADRIPLEGIA (6) Morbid obesity Code(s): E66.01 - MORBID (SEVERE) OBESITY DUE TO EXCESS CALORIES (7) Supratherapeutic INR Code(s): R79.1 - ABNORMAL COAGULATION PROFILE (8) Toxic metabolic encephalopathy Code(s): G92 - TOXIC ENCEPHALOPATHY
[2018-07-01 13:14] LABS: HBSAG SCREEN Negative (Negative); HEP A AB, IGM Negative (Negative); HEP B CORE AB, TOT Negative (Negative)
--- NOTE | 2018-07-01 16:05 | PN ---
Progress Note, Physician History of Present Illness: Pt seen and examined at bedside. She is awake and alert. She denies shortness of breath. - Current Medication List Current Medications: Active Medications Acetaminophen (Tylenol -) 650 mg PO Q6H PRN PRN Reason: BACK PAIM SCALE 7-10 Last Admin: 07/01/18 12:40 Dose: 650 mg Atorvastatin Calcium (Lipitor -) 10 mg PO [facility] Last Admin: 06/30/18 22:35 Dose: 10 mg Budesonide/Formoterol Fumarate (Symbicort 160/4.5mcg -) 2 puff IH BID [facility] Last Admin: 07/01/18 10:26 Dose: 2 puff Docusate Sodium (Colace -) 100 mg PO HS [facility] Last Admin: 06/30/18 22:35 Dose: 100 mg Folic Acid (Folic Acid -) 1 mg PO DAILY [facility] Last Admin: 07/01/18 10:25 Dose: 1 mg Furosemide (Lasix -) 80 mg PO SuTuThSa@1000 [facility] Last Admin: 07/01/18 10:24 Dose: 80 mg Gabapentin (Neurontin -) 100 mg PO TID [facility] Last Admin: 07/01/18 13:20 Dose: 100 mg Sodium Chloride (Normal Saline -) 250 mls @ 3,000 mls/hr IV PRN PRN PRN Reason: Hypotension during Dialysis Stop: 06/30/18 20:25 Piperacillin Sod/Tazobactam (Sod 2.25 gm/ Dextrose) 50 mls @ 100 mls/hr IVPB Q8H-IV [facility]; Protocol Last Admin: 07/01/18 10:23 Dose: 100 mls/hr Insulin Aspart (Novolog Vial) 5 units SQ TIDCM [facility] Last Admin: 07/01/18 11:37 Dose: Not Given Insulin Detemir (Levemir Vial) 33 units SQ [facility] Last Admin: 06/30/18 22:35 Dose: 33 units Isosorbide Mononitrate (Imdur -) 60 mg PO DAILY [facility] Last Admin: 07/01/18 10:25 Dose: 60 mg Lisinopril (Prinivil) 5 mg PO DAILY [facility] Last Admin: 07/01/18 10:24 Dose: 5 mg Metoprolol Tartrate (Lopressor -) 50 mg PO TID [facility] Last Admin: 03/23/19 14:24 Dose: 50 mg Multivit/Ca Carb/B Cmplx/FA/Prenat (Nephro-Essie -) 1 tablet PO DAILY [facility] Last Admin: 07/01/18 10:25 Dose: 1 tablet Oxycodone HCl (Roxicodone -) 10 mg PO Q6H PRN PRN Reason: BACK PAIN SCALE 7-10 Last Admin: 07/01/18 12:38 Dose: 10 mg Polyethylene Glycol (Miralax (For Daily Use) -) 17 gm PO DAILY [facility] Last Admin: 07/01/18 10:33 Dose: 17 gm Polysaccharide Iron Complex (Niferex-150 -) 150 mg PO DAILY [facility] Last Admin: 07/01/18 10:25 Dose: 150 mg Ranitidine HCl (Zantac -) 150 mg PO HS [facility] Last Admin: 06/30/18 22:35 Dose: 150 mg Senna (Senna -) 2 tab PO HS [facility] Last Admin: 06/30/18 22:33 Dose: 2 tab Silver Sulfadiazine (Silvadene -) 1 applic TP BID [facility] Last Admin: 07/01/18 10:27 Dose: 1 applic Simethicone (Mylicon -) 80 mg PO Q6H PRN PRN Reason: DYSPEPSIA Zinc Sulfate (Orazinc -) 220 mg PO DAILY [facility] Last Admin: 07/01/18 10:25 Dose: 220 mg - Objective Vital Signs: Vital Signs Temperature 98.5 F 07/01/18 15:01 Pulse Rate 86 07/01/18 15:01 Respiratory Rate 18 07/01/18 15:01 Blood Pressure 116/60 07/01/18 14:22 O2 Sat by Pulse Oximetry (%) 100 07/01/18 09:00 Constitutional: Yes: Calm Eyes: Yes: Conjunctiva Clear HENT: Yes: Atraumatic Neck: Yes: Supple Cardiovascular: Yes: S1, S2 Respiratory: Yes: CTA Bilaterally Gastrointestinal: Yes: Soft, Abdomen, Obese Genitourinary: Yes: WNL Musculoskeletal: Yes: WNL Edema: No Neurological: Yes: Oriented Psychiatric: Yes: Oriented Labs: CBC, BMP 06/30/18 07:16 06/30/18 07:16 INR, PTT INR 3.44 (0.82-1.09) H 07/01/18 07:50 Problem List - Problems (1) UTI (urinary tract infection) Code(s): N39.0 - URINARY TRACT INFECTION, SITE NOT SPECIFIED Qualifiers: Urinary tract infection type: site unspecified Hematuria presence: without hematuria Qualified Code(s): N39.0 - Urinary tract infection, site not specified (2) End stage renal disease on dialysis Code(s): N18.6 - END STAGE RENAL DISEASE; Z99.2 - DEPENDENCE ON RENAL DIALYSIS Assessment/Plan Current Medications Generic Name Dose Route Start Last Admin Trade Name Freq PRN Reason Stop Dose Admin Acetaminophen 650 mg 06/29/18 20:49 07/01/18 12:40 Tylenol - PO 650 mg Q6H PRN Administration BACK PAIM SCALE 7-10 Atorvastatin Calcium 10 mg 06/30/18 22:00 06/30/18 22:35 Lipitor - PO 10 mg HS [facility] Administration Budesonide/Formoterol Fumarate 2 puff 06/29/18 22:00 07/01/18 10:26 Symbicort 160/4.5mcg - IH 2 puff BID [facility] Administration Docusate Sodium 100 mg 06/30/18 22:00 06/30/18 22:35 Colace - PO 100 mg HS [facility] Administration Folic Acid 1 mg 06/30/18 10:00 07/01/18 10:25 Folic Acid - PO 1 mg DAILY [facility] Administration Furosemide 80 mg 06/29/18 20:30 07/01/18 10:24 Lasix - PO 80 mg SuTuThSa@1000 [facility] Administration Gabapentin 100 mg 06/30/18 06:00 07/01/18 13:20 Neurontin - PO 100 mg TID [facility] Administration Sodium Chloride 250 mls @ 3,000 mls/hr 06/29/18 20:25 Normal Saline - IV 06/30/18 20:25 PRN PRN Hypotension during Dialysis Piperacillin Sod/Tazobactam 50 mls @ 100 mls/hr 06/30/18 18:00 07/01/18 10:23 Sod 2.25 gm/ Dextrose IVPB 100 mls/hr Q8H-IV [facility] Administration Protocol Insulin Aspart 5 units 06/29/18 20:15 07/01/18 11:37 Novolog Vial SQ Not Given TIDCM [facility] Insulin Detemir 33 units 06/30/18 22:00 06/30/18 22:35 Levemir Vial SQ 33 units HS [facility] Administration Isosorbide Mononitrate 60 mg 06/30/18 10:00 07/01/18 10:25 Imdur - PO 60 mg DAILY [facility] Administration Lisinopril 5 mg 06/30/18 10:00 07/01/18 10:24 Prinivil PO 5 mg DAILY [facility] Administration Metoprolol Tartrate 50 mg 06/30/18 06:00 07/01/18 14:24 Lopressor - PO 50 mg TID [facility] Administration Multivit/Ca Carb/B Cmplx/FA/Prenat 1 tablet 06/30/18 10:00 07/01/18 10:25 Nephro-Essie - PO 1 tablet DAILY [facility] Administration Oxycodone HCl 10 mg 06/29/18 20:49 07/01/18 12:38 Roxicodone - PO 10 mg Q6H PRN Administration BACK PAIN SCALE 7-10 Polyethylene Glycol 17 gm 06/30/18 10:00 07/01/18 10:33 Miralax (For Daily Use) - PO 17 gm DAILY [facility] Administration Polysaccharide Iron Complex 150 mg 06/30/18 10:00 07/01/18 10:25 Niferex-150 - PO 150 mg DAILY [facility] Administration Ranitidine HCl 150 mg 06/30/18 22:00 06/30/18 22:35 Zantac - PO 150 mg HS [facility] Administration Senna 2 tab 06/29/18 22:00 06/30/18 22:33 Senna - PO 2 tab HS [facility] Administration Silver Sulfadiazine 1 applic 06/29/18 22:00 07/01/18 10:27 Silvadene - TP 1 applic BID [facility] Administration Simethicone 80 mg 06/29/18 20:03 Mylicon - PO Q6H PRN DYSPEPSIA Zinc Sulfate 220 mg 06/30/18 10:00 07/01/18 10:25 Orazinc - PO 220 mg DAILY [facility] Administration Impression 1. ESRD 2. obesity 3. hyperlipidemia 4. HTN 5. DM 6. CHF 7. CAD 8. anemia 9. a-fib 10. iron deficiency 11. UTI 12. sepsis Plan - next HD on Tuesday - abx per ID - mental status is improved - renal diet
--- NOTE | 2018-07-01 16:23 | PN ---
Progress Note, Physician History of Present Illness: AWAKE, ALERT SUPINE IN BED NO COMPLAINTS NO FEVER/ CHILLS CULTURES PENDING - Current Medication List Current Medications: Active Medications Acetaminophen (Tylenol -) 650 mg PO Q6H PRN PRN Reason: BACK PAIM SCALE 7-10 Last Admin: 07/01/18 12:40 Dose: 650 mg Atorvastatin Calcium (Lipitor -) 10 mg PO HS [facility] Last Admin: 06/30/18 22:35 Dose: 10 mg Budesonide/Formoterol Fumarate (Symbicort 160/4.5mcg -) 2 puff IH BID [facility] Last Admin: 07/01/18 10:26 Dose: 2 puff Docusate Sodium (Colace -) 100 mg PO HS [facility] Last Admin: 06/30/18 22:35 Dose: 100 mg Folic Acid (Folic Acid -) 1 mg PO DAILY [facility] Last Admin: 07/01/18 10:25 Dose: 1 mg Furosemide (Lasix -) 80 mg PO SuTuThSa@1000 [facility] Last Admin: 07/01/18 10:24 Dose: 80 mg Gabapentin (Neurontin -) 100 mg PO TID [facility] Last Admin: 07/01/18 13:20 Dose: 100 mg Sodium Chloride (Normal Saline -) 250 mls @ 3,000 mls/hr IV PRN PRN PRN Reason: Hypotension during Dialysis Stop: 06/30/18 20:25 Piperacillin Sod/Tazobactam (Sod 2.25 gm/ Dextrose) 50 mls @ 100 mls/hr IVPB Q8H-IV [facility]; Protocol Last Admin: 07/01/18 10:23 Dose: 100 mls/hr Insulin Aspart ([facility]olog Vial) [address] [facility] Admin: 07/01/18 11:37 Dose: Not Given Insulin Detemir (Levemir Vial) 33 units SQ [facility] Last Admin: 06/30/18 22:35 Dose: 33 units Isosorbide Mononitrate (Imdur -) 60 mg PO DAILY [facility] Last Admin: 07/01/18 10:25 Dose: 60 mg Lisinopril (Prinivil) 5 mg PO DAILY [facility] Last Admin: 07/01/18 10:24 Dose: 5 mg Metoprolol Tartrate (Lopressor -) 50 mg PO TID [facility] Last Admin: 07/01/18 14:24 Dose: 50 mg Multivit/Ca Carb/B Cmplx/FA/Prenat (Nephro-Essie -) 1 tablet PO DAILY [facility] Last Admin: 07/01/18 10:25 Dose: 1 tablet Oxycodone HCl (Roxicodone -) 10 mg PO Q6H PRN PRN Reason: BACK PAIN SCALE 7-10 Last Admin: 07/01/18 12:38 Dose: 10 mg Polyethylene Glycol (Miralax (For Daily Use) -) 17 gm PO DAILY [facility] Last Admin: 07/01/18 10:33 Dose: 17 gm Polysaccharide Iron Complex (Niferex-150 -) 150 mg PO DAILY [facility] Last Admin: 07/01/18 10:25 Dose: 150 mg Ranitidine HCl (Zantac -) 150 mg PO HS [facility] Last Admin: 06/30/18 22:35 Dose: 150 mg Senna (Senna -) 2 tab PO HS [facility] Last Admin: 06/30/18 22:33 Dose: 2 tab Silver Sulfadiazine (Silvadene -) 1 applic TP BID [facility] Last Admin: 07/01/18 10:27 Dose: 1 applic Simethicone (Mylicon -) 80 mg PO Q6H PRN PRN Reason: DYSPEPSIA Zinc Sulfate (Orazinc -) 220 mg PO DAILY [facility] Last Admin: 07/01/18 10:25 Dose: 220 mg - Objective Vital Signs: Vital Signs Temperature 98.5 F 07/01/18 15:01 Pulse Rate 86 07/01/18 15:01 Respiratory Rate 18 07/01/18 15:01 Blood Pressure 116/60 07/01/18 14:22 O2 Sat by Pulse Oximetry (%) 100 07/01/18 09:00 Constitutional: Yes: No Distress, Obese Cardiovascular: Yes: Regular Rate and Rhythm, S1, S2 Respiratory: Yes: CTA Bilaterally Gastrointestinal: Yes: Normal Bowel Sounds, Soft Labs: CBC, BMP 06/30/18 07:16 06/30/18 07:16 INR, PTT INR 3.44 (0.82-1.09) H 07/01/18 07:50 Assessment/Plan FEVER/ HYPOTENSION/ALTERED MENTAL STATUS R/O SEPSIS ESRD AWAIT C/S CONTINUE EMPIRIC ZOSYN
[2018-07-01] MEDS: DOCUSATE SODIUM 100 MG CAPSULE (FP) PO SCH (22:05)
[2018-07-01] MEDS: RANITIDINE HCL 150 MG TABLET (FP) PO SCH (22:45)
[2018-07-01] MEDS: INSULIN (LEVEMIR) 100 UNITS/ML UNITS SQ SCH (22:46)
[2018-07-01] MEDS: ATORVASTATIN CA 10 MG TABLET (FP) PO SCH (22:46)
[2018-07-01] MEDS: SENNOSIDES 8.6MG TABLET (FP) PO SCH (22:46)
[2018-07-02] MEDS ORDERED: DEXTROSE 5%-WATER - 50 ML IVPB ONE ×3 (02:10→16:49)
[2018-07-02] MEDS ORDERED: PIPERACILLIN/TAZOBACTAM 2.25 GM VIAL IVPB ONE ×3 (02:10→16:49)
[2018-07-02] MEDS: PIPERACILLIN/TAZOB 2.25 GM 2.25 GM in DEXTROSE 5%-WATER - 50 ML IVPB SCH ×3 (02:14→17:35)
[2018-07-02] MEDS: GABAPENTIN 100 MG CAPSULE (FP) PO SCH ×3 (06:30→22:10)
[2018-07-02] MEDS: METOPROLOL TARTRATE 50 MG TABLET (FP) PO SCH ×3 (06:30→22:10)
[2018-07-02] MEDS: INSULIN (NOVOLOG) ASPART 100 UNITS/ML 10ML VIAL SQ SCH ×2 (08:00→11:37)
[2018-07-02 08:43] LABS: INR 2.68 (0.83-1.09); PROTHROMBIN TIME (PATIENT) 31.9 SEC (9.7-13.0)
[2018-07-02] MEDS ORDERED: PT OWN MED DRAWER 7, Y5N ONE (09:45)
[2018-07-02] MEDS: ACETAMINOPHEN 325 MG TABLET (FP) PO PRN ×2 (09:50→22:21)
[2018-07-02] MEDS: oxyCODONE HCL 5 MG TABLET PO PRN ×2 (09:50→22:18)
[2018-07-02] MEDS: VITAMIN B COMP W-C 1 EA TABLET PO SCH (09:51)
[2018-07-02] MEDS: ISOSORBIDE MONONITRATE 60 MG TAB.SR.24H (FP) PO SCH (09:51)
[2018-07-02] MEDS: IRON POLYSACCHARIDES 150 MG CAPSULE PO SCH (09:51)
[2018-07-02] MEDS: ZINC SULFATE 220 MG CAPSULE (FP) PO SCH (09:51)
[2018-07-02] MEDS: LISINOPRIL 5 MG TABLET (FP) PO SCH (09:51)
[2018-07-02] MEDS: FOLIC ACID 1 MG TABLET (FP) PO SCH (09:52)
[2018-07-02] MEDS: SILVER SULFADIAZINE 1% TOP CREAM 50 GM JAR TP SCH ×2 (09:52→22:12)
[2018-07-02] MEDS: FUROSEMIDE 40 MG TABLET (FP) PO SCH (09:52)
[2018-07-02] MEDS: POLYETHYLENE GLYCOL 3350 119 GM BTL PO SCH (09:52)
[2018-07-02] MEDS: BUDESONIDE/FORMETEROL FUMARATE 160/4.5 mcg INHALER IH SCH ×2 (09:53→22:12)
--- NOTE | 2018-07-02 13:24 | PN ---
Progress Note (short form) - Note Progress Note: comfortable feels ok no new issues Vital Signs Temp 98.3 F 07/02/18 08:25 Pulse 67 07/02/18 08:25 Resp 14 07/02/18 08:25 BP 126/68 07/02/18 08:25 Pulse Ox 98 07/02/18 09:00 Intake & Output 07/01/18 07/02/18 07/02/18 23:59 11:59 23:59 Intake Total 500 250 50 Balance 500 250 50 Weight 276 lb Intake: IVPB 50 50 50 Oral 450 200 Other: Voiding Method Incontinent Incontinent # Unmeasured Voids Void 2 Weight Measurement Method Built in [facility] Active Medications Acetaminophen (Tylenol -) 650 mg PO Q6H PRN PRN Reason: BACK PAIM SCALE 7-10 Last Admin: 07/02/18 09:50 Dose: 650 mg Atorvastatin Calcium (Lipitor -) 10 mg PO [facility] Last Admin: 07/01/18 22:46 Dose: 10 mg Budesonide/Formoterol Fumarate (Symbicort 160/4.5mcg -) 2 puff IH BID [facility] Last Admin: 07/02/18 09:53 Dose: 2 puff Docusate Sodium (Colace -) 100 mg PO [facility] Last Admin: 07/01/18 22:05 Dose: 100 mg Folic Acid (Folic Acid -) 1 mg PO DAILY [facility] Last Admin: 07/02/18 09:52 Dose: 1 mg Furosemide (Lasix -) 80 mg PO SuTuThSa@1000 [facility] Last Admin: 07/02/18 09:52 Dose: 80 mg Gabapentin (Neurontin -) 100 mg PO TID [facility] Last Admin: 07/02/18 13:17 Dose: 100 mg Sodium Chloride (Normal Saline -) 250 mls @ 3,000 mls/hr IV PRN PRN PRN Reason: Hypotension during Dialysis Stop: 06/30/18 20:25 Piperacillin Sod/Tazobactam (Sod 2.25 gm/ Dextrose) 50 mls @ 100 mls/hr IVPB Q8H-IV [facility]; Protocol Last Admin: 07/02/18 09:51 Dose: 100 mls/hr Insulin Aspart (Novolog Vial) 5 units SQ TIDCM [facility] Last Admin: 07/02/18 11:37 Dose: Not Given Insulin Detemir (Levemir Vial) 33 units SQ [facility] Last Admin: 07/01/18 22:46 Dose: 33 units Isosorbide Mononitrate (Imdur -) 60 mg PO DAILY [facility] Last Admin: 07/02/18 09:51 Dose: 60 mg Lisinopril (Prinivil) 5 mg PO DAILY [facility] Last Admin: 07/02/18 09:51 Dose: 5 mg Metoprolol Tartrate (Lopressor -) 50 mg PO TID [facility] Last Admin: 07/02/18 13:17 Dose: 50 mg Multivit/Ca Carb/B Cmplx/FA/Prenat (Nephro-Essie -) 1 tablet PO DAILY [facility] Last Admin: 07/02/18 09:51 Dose: 1 tablet Oxycodone HCl (Roxicodone -) 10 mg PO Q6H PRN PRN Reason: BACK PAIN SCALE 7-10 Last Admin: 07/02/18 09:50 Dose: 10 mg Polyethylene Glycol (Miralax (For Daily Use) -) 17 gm PO DAILY [facility] Last Admin: 07/02/18 09:52 Dose: 17 gm Polysaccharide Iron Complex (Niferex-150 -) 150 mg PO DAILY [facility] Last Admin: 07/02/18 09:51 Dose: 150 mg Ranitidine HCl (Zantac -) 150 mg PO [facility] Last Admin: 07/01/18 22:45 Dose: 150 mg Senna (Senna -) 2 tab PO [facility] Last Admin: 07/01/18 22:46 Dose: 2 tab Silver Sulfadiazine (Silvadene -) 1 applic TP BID [facility] Last Admin: 07/02/18 09:52 Dose: 1 applic Simethicone (Mylicon -) 80 mg PO Q6H PRN PRN Reason: DYSPEPSIA Warfarin Sodium (Coumadin -) 3 mg PO DAILY@1800 [facility] Zinc Sulfate (Orazinc -) 220 mg PO DAILY [facility] Last Admin: 07/02/18 09:51 Dose: 220 mg CBC, BMP 06/30/18 07:16 06/30/18 07:16 INR, PTT INR 2.68 (0.83-1.09) H 07/02/18 07:30 Microbiology 06/29/18 15:15 Gram Stain - Final Back Wound Culture - Preliminary Non Lactose Fermenting Gnb Mr S Aureus Group D Strep Or Entero Coccus Klebsiella Pneumoniae 06/29/18 15:15 Urine Culture - Final Urine - Urine Clean Catch Escherichia Coli 06/29/18 15:15 Blood Culture - Preliminary Blood - Peripheral Venous NO GROWTH OBTAINED AFTER 48 HOURS, INCUBATION TO CONTINUE FOR 3 DAYS. 06/29/18 15:15 Blood Culture - Preliminary Blood - Peripheral Venous NO GROWTH OBTAINED AFTER 48 HOURS, INCUBATION TO CONTINUE FOR 3 DAYS. Physical Exam Morbidly obese lungs- Bilateral Breath sounds Anteriorly cvs- s1, s2 rrr abd- soft/ obese ext- Chronic venous stasis. A/P In summary Celine Muse is a 72 yr old F, ESRD MWF HD (via permacath installed in the right chest wall), COPD, diastolic CHF, Afib (on Coumadin), chronic venous insufficiency, IDDM, GERD, UTI, HTN, HLD, anemia, asthma, and osteoarthritis admitted under observation continue present care restart coumadin h/h stable abx -- zosyn f/u cultures will follow Problem List - Problems (1) UTI (urinary tract infection) Code(s): N39.0 - URINARY TRACT INFECTION, SITE NOT SPECIFIED Qualifiers: Urinary tract infection type: site unspecified Hematuria presence: without hematuria Qualified Code(s): N39.0 - Urinary tract infection, site not specified (2) Afib Code(s): I48.91 - UNSPECIFIED ATRIAL FIBRILLATION Qualifiers: Atrial fibrillation type: persistent Qualified Code(s): I48.1 - Persistent atrial fibrillation (3) Anemia Code(s): D64.9 - ANEMIA, UNSPECIFIED Qualifiers: Anemia type: due to chronic kidney disease Chronic kidney disease stage: on chronic dialysis Qualified Code(s): N18.6 - End stage renal disease; D63.1 - Anemia in chronic kidney disease; Z99.2 - Dependence on renal dialysis (4) End stage renal disease on dialysis Code(s): N18.6 - END STAGE RENAL DISEASE; Z99.2 - DEPENDENCE ON RENAL DIALYSIS (5) Functional quadriplegia Code(s): R53.2 - FUNCTIONAL QUADRIPLEGIA (6) Morbid obesity Code(s): E66.01 - MORBID (SEVERE) OBESITY DUE TO EXCESS CALORIES (7) Supratherapeutic INR Code(s): R79.1 - ABNORMAL COAGULATION PROFILE (8) Toxic metabolic encephalopathy Code(s): G92 - TOXIC ENCEPHALOPATHY
[2018-07-02] MEDS: INSULIN SLIDING SCALE (NOVOLOG) 1 VIAL SQ SCH (16:08)
[2018-07-02] MEDS ORDERED: SODIUM CHLORIDE 250 ML IV PRN (16:50)
--- NOTE | 2018-07-02 16:50 | PN ---
Progress Note, Physician History of Present Illness: Pt seen and examined at bedside. She is awake and alert. She denies shortness of breath. - Current Medication List Current Medications: Active Medications Acetaminophen (Tylenol -) 650 mg PO Q6H PRN PRN Reason: BACK PAIM SCALE 7-10 Last Admin: 07/02/18 09:50 Dose: 650 mg Atorvastatin Calcium (Lipitor -) 10 mg PO HS [facility] Last Admin: 07/01/18 22:46 Dose: 10 mg Budesonide/Formoterol Fumarate (Symbicort 160/4.5mcg -) 2 puff IH BID [facility] Last Admin: 07/02/18 09:53 Dose: 2 puff Docusate Sodium (Colace -) 100 mg PO [facility] Last Admin: 07/01/18 22:05 Dose: 100 mg Folic Acid (Folic Acid -) 1 mg PO DAILY [facility] Last Admin: 07/02/18 09:52 Dose: 1 mg Furosemide (Lasix -) 80 mg PO SuTuThSa@1000 [facility] Last Admin: 07/02/18 09:52 Dose: 80 mg Gabapentin (Neurontin -) 100 mg PO TID [facility] Last Admin: 07/02/18 13:17 Dose: 100 mg Sodium Chloride (Normal Saline -) 250 mls @ 3,000 mls/hr IV PRN PRN PRN Reason: Hypotension during Dialysis Stop: 06/30/18 20:25 Piperacillin Sod/Tazobactam (Sod 2.25 gm/ Dextrose) 50 mls @ 100 mls/hr IVPB Q8H-IV [facility]; Protocol Last Admin: 07/02/18 09:51 Dose: 100 mls/hr Insulin Aspart (Novolog Vial Sliding Scale -) 1 vial SQ BIDAC [facility]; Protocol Last Admin: 07/02/18 16:08 Dose: Not Given Insulin Detemir (Levemir Vial) 33 units SQ [facility] Last Admin: 07/01/18 22:46 Dose: 33 units Isosorbide Mononitrate (Imdur -) 60 mg PO DAILY [facility] Last Admin: 07/02/18 09:51 Dose: 60 mg Lisinopril (Prinivil) 5 mg PO DAILY [facility] Last Admin: 07/02/18 09:51 Dose: 5 mg Metoprolol Tartrate (Lopressor -) 50 mg PO TID [facility] Last Admin: 07/02/18 13:17 Dose: 50 mg Multivit/Ca Carb/B Cmplx/FA/Prenat (Nephro-Essie -) 1 tablet PO DAILY [facility] Last Admin: 07/02/18 09:51 Dose: 1 tablet Oxycodone HCl (Roxicodone -) 10 mg PO Q6H PRN PRN Reason: BACK PAIN SCALE 7-10 Last Admin: 07/02/18 09:50 Dose: 10 mg Polyethylene Glycol (Miralax (For Daily Use) -) 17 gm PO DAILY [facility] Last Admin: 07/02/18 09:52 Dose: 17 gm Polysaccharide Iron Complex (Niferex-150 -) 150 mg PO DAILY [facility] Last Admin: 07/02/18 09:51 Dose: 150 mg Ranitidine HCl (Zantac -) 150 mg PO [facility] Last Admin: 07/01/18 22:45 Dose: 150 mg Senna (Senna -) 2 tab PO [facility] Last Admin: 07/01/18 22:46 Dose: 2 tab Silver Sulfadiazine (Silvadene -) 1 applic TP BID [facility] Last Admin: 07/02/18 09:52 Dose: 1 applic Simethicone (Mylicon -) 80 mg PO Q6H PRN PRN Reason: DYSPEPSIA Warfarin Sodium (Coumadin -) 3 mg PO DAILY@1800 [facility] Zinc Sulfate (Orazinc -) 220 mg PO DAILY [facility] Last Admin: 07/02/18 09:51 Dose: 220 mg - Objective Vital Signs: Vital Signs Temperature 98.5 F 07/02/18 15:36 Pulse Rate 64 07/02/18 15:36 Respiratory Rate 16 07/02/18 15:36 Blood Pressure 107/57 L 07/02/18 15:36 O2 Sat by Pulse Oximetry (%) 98 07/02/18 09:00 Constitutional: Yes: Calm Eyes: Yes: Conjunctiva Clear HENT: Yes: Atraumatic Neck: Yes: Supple Cardiovascular: Yes: S1, S2 Respiratory: Yes: CTA Bilaterally, On Nasal O2 Gastrointestinal: Yes: Soft, Abdomen, Obese Genitourinary: Yes: Incontinence Musculoskeletal: Yes: Muscle Weakness Edema: No Neurological: Yes: Oriented Psychiatric: Yes: Oriented Labs: CBC, BMP 06/30/18 07:16 06/30/18 07:16 INR, PTT INR 2.68 (0.83-1.09) H 07/02/18 07:30 Problem List - Problems (1) UTI (urinary tract infection) Code(s): N39.0 - URINARY TRACT INFECTION, SITE NOT SPECIFIED Qualifiers: Urinary tract infection type: site unspecified Hematuria presence: without hematuria Qualified Code(s): N39.0 - Urinary tract infection, site not specified (2) End stage renal disease on dialysis Code(s): N18.6 - END STAGE RENAL DISEASE; Z99.2 - DEPENDENCE ON RENAL DIALYSIS Assessment/Plan Current Medications Generic Name Dose Route Start Last Admin Trade Name Freq PRN Reason Stop Dose Admin Acetaminophen 650 mg 06/29/18 20:49 07/02/18 09:50 Tylenol - PO 650 mg Q6H PRN Administration BACK PAIM SCALE 7-10 Atorvastatin Calcium 10 mg 06/30/18 22:00 07/01/18 22:46 Lipitor - PO 10 mg HS [facility] Administration Budesonide/Formoterol Fumarate 2 puff 06/29/18 22:00 07/02/18 09:53 Symbicort 160/4.5mcg - IH 2 puff BID [facility] Administration Docusate Sodium 100 mg 06/30/18 22:00 07/01/18 22:05 Colace - PO 100 mg HS [facility] Administration Folic Acid 1 mg 06/30/18 10:00 07/02/18 09:52 Folic Acid - PO 1 mg DAILY [facility] Administration Furosemide 80 mg 06/29/18 20:30 07/02/18 09:52 Lasix - PO 80 mg SuTuThSa@1000 [facility] Administration Gabapentin 100 mg 06/30/18 06:00 07/02/18 13:17 Neurontin - PO 100 mg TID [facility] Administration Sodium Chloride 250 mls @ 3,000 mls/hr 06/29/18 20:25 Normal Saline - IV 06/30/18 20:25 PRN PRN Hypotension during Dialysis Piperacillin Sod/Tazobactam 50 mls @ 100 mls/hr 06/30/18 18:00 07/02/18 09:51 Sod 2.25 gm/ Dextrose IVPB 100 mls/hr Q8H-IV [facility] Administration Protocol Insulin Aspart 1 vial 07/02/18 16:30 07/02/18 16:08 Novolog Vial Sliding Scale - SQ Not Given BIDAC [facility] Protocol Insulin Detemir 33 units 06/30/18 22:00 07/01/18 22:46 Levemir Vial SQ 33 units HS [facility] Administration Isosorbide Mononitrate 60 mg 06/30/18 10:00 07/02/18 09:51 Imdur - PO 60 mg DAILY [facility] Administration Lisinopril 5 mg 06/30/18 10:00 07/02/18 09:51 Prinivil PO 5 mg DAILY [facility] Administration Metoprolol Tartrate 50 mg 06/30/18 06:00 07/02/18 13:17 Lopressor - PO 50 mg TID [facility] Administration Multivit/Ca Carb/B Cmplx/FA/Prenat 1 tablet 06/30/18 10:00 07/02/18 09:51 Nephro-Essie - PO 1 tablet DAILY [facility] Administration Oxycodone HCl 10 mg 06/29/18 20:49 07/02/18 09:50 Roxicodone - PO 10 mg Q6H PRN Administration BACK PAIN SCALE 7-10 Polyethylene Glycol 17 gm 06/30/18 10:00 07/02/18 09:52 Miralax (For Daily Use) - PO 17 gm DAILY [facility] Administration Polysaccharide Iron Complex 150 mg 06/30/18 10:00 07/02/18 09:51 Niferex-150 - PO 150 mg DAILY [facility] Administration Ranitidine HCl 150 mg 06/30/18 22:00 07/01/18 22:45 Zantac - PO 150 mg HS [facility] Administration Senna 2 tab 06/29/18 22:00 07/01/18 22:46 Senna - PO 2 tab HS [facility] Administration Silver Sulfadiazine 1 applic 06/29/18 22:00 07/02/18 09:52 Silvadene - TP 1 applic BID [facility] Administration Simethicone 80 mg 06/29/18 20:03 Mylicon - PO Q6H PRN DYSPEPSIA Warfarin Sodium 3 mg 07/02/18 18:00 Coumadin - PO DAILY@1800 [facility] Zinc Sulfate 220 mg 06/30/18 10:00 07/02/18 09:51 Orazinc - PO 220 mg DAILY [facility] Administration Impression 1. ESRD 2. obesity 3. hyperlipidemia 4. HTN 5. DM 6. CHF 7. CAD 8. anemia 9. a-fib 10. iron deficiency 11. UTI 12. sepsis Plan - HD tomorrow - abx per ID - renal diet - pt awake and alert
[2018-07-02] MEDS: WARFARIN NA 3 MG TABLET PO SCH (17:35)
[2018-07-02] MEDS: SENNOSIDES 8.6MG TABLET (FP) PO SCH (22:10)
[2018-07-02] MEDS: ATORVASTATIN CA 10 MG TABLET (FP) PO SCH (22:11)
[2018-07-02] MEDS: RANITIDINE HCL 150 MG TABLET (FP) PO SCH (22:11)
[2018-07-02] MEDS: DOCUSATE SODIUM 100 MG CAPSULE (FP) PO SCH (22:11)
[2018-07-02] MEDS: INSULIN (LEVEMIR) 100 UNITS/ML UNITS SQ SCH (22:11)
[2018-07-03] MEDS ORDERED: PIPERACILLIN/TAZOBACTAM 2.25 GM VIAL IVPB ONE (01:59)
[2018-07-03] MEDS ORDERED: DEXTROSE 5%-WATER - 50 ML IVPB ONE (01:59)
[2018-07-03] MEDS: PIPERACILLIN/TAZOB 2.25 GM 2.25 GM in DEXTROSE 5%-WATER - 50 ML IVPB SCH ×2 (02:04→13:12)
[2018-07-03] MEDS: INSULIN SLIDING SCALE (NOVOLOG) 1 VIAL SQ SCH ×2 (06:16→17:52)
[2018-07-03] MEDS: ACETAMINOPHEN 325 MG TABLET (FP) PO PRN ×2 (06:17→12:56)
[2018-07-03] MEDS: GABAPENTIN 100 MG CAPSULE (FP) PO SCH ×2 (06:17→14:30)
[2018-07-03] MEDS: METOPROLOL TARTRATE 50 MG TABLET (FP) PO SCH ×2 (06:17→14:30)
[2018-07-03] MEDS: oxyCODONE HCL 5 MG TABLET PO PRN ×2 (06:17→12:54)
[2018-07-03] MEDS: POLYETHYLENE GLYCOL 3350 119 GM BTL PO SCH (09:00)
[2018-07-03 09:14] LABS: HEMATOCRIT 30.1 % (32.4-45.2); HEMOGLOBIN 10.2 GM/dL (10.7-15.3); MCH 35.2 pg (25.7-33.7); MCHC 33.7 g/dl (32.0-36.0); MEAN CELL VOLUME 104.3 fl (80-96); PLATELET COUNT 198 K/MM3 (134-434); RBC 2.89 M/mm3 (3.60-5.2); RDW 15.8 % (11.6-15.6); WHITE BLOOD COUNT 7.5 K/mm3 (4.0-10.0)
[2018-07-03 09:26] LABS: INR 2.47 (0.83-1.09); PROTHROMBIN TIME (PATIENT) 29.4 SEC (9.7-13.0)
[2018-07-03 09:43] LABS: ANION GAP 8 MMOL/L (8-16); BLOOD UREA NITROGEN 39 mg/dL (7-18); CALCIUM 7.7 mg/dL (8.5-10.1); CHLORIDE 103 mmol/L (98-107); CO2 30 mmol/L (21-32); CREATININE 6.9 mg/dL (0.55-1.3); GLUCOSE,RANDOM 106 mg/dL (74-106); POTASSIUM 4.3 mmol/L (3.5-5.1); SODIUM 141 mmol/L (136-145)
[2018-07-03] MEDS ORDERED: EPOETIN ALFA 3,000 UNIT/1 ML ML IVPUSH ONE (10:00)
--- NOTE | 2018-07-03 11:29 | PN ---
Progress Note (short form) - Note Progress Note: seen at HD Vital Signs Period Temp Pulse Resp BP Sys/Contreras Pulse Ox Last 24 Hr 98.2 F-98.8 F 53-96 16-20 94-143/43-58 97 cor-rrr lungs clear +permacath abd soft,nt ext no edema CBC, BMP 07/03/18 08:50 07/03/18 08:58 Microbiology 06/29/18 15:15 Back Gram Stain - Final 06/29/18 15:15 Back Wound Culture - Final Acinetobacter Baumannii/Haemol Mr S Aureus Enterococcus Faecalis Klebsiella Pneumoniae 06/29/18 15:15 Blood - Peripheral Venous Blood Culture - Preliminary NO GROWTH OBTAINED AFTER 72 HOURS, INCUBATION TO CONTINUE FOR 2 DAYS. 06/29/18 15:15 Blood - Peripheral Venous Blood Culture - Preliminary NO GROWTH OBTAINED AFTER 72 HOURS, INCUBATION TO CONTINUE FOR 2 DAYS. 06/29/18 15:15 Urine - Urine Clean Catch Urine Culture - Final Escherichia Coli a/p afebrile can switch to amox 500 daily after HD on HD days for one week local care to sacral ulcer coagulopathy from warfarin afib esrd/hd contact isolation MRSA please call back if needed Problem List - Problems (1) UTI (urinary tract infection) Code(s): N39.0 - URINARY TRACT INFECTION, SITE NOT SPECIFIED Qualifiers: Urinary tract infection type: site unspecified Hematuria presence: without hematuria Qualified Code(s): N39.0 - Urinary tract infection, site not specified (2) End stage renal disease on dialysis Code(s): N18.6 - END STAGE RENAL DISEASE; Z99.2 - DEPENDENCE ON RENAL DIALYSIS (3) Elevated INR (international normalized ratio) due to prior anticoagulant medication ingestion Code(s): R79.1 - ABNORMAL COAGULATION PROFILE (4) Afib Code(s): I48.91 - UNSPECIFIED ATRIAL FIBRILLATION Qualifiers: Atrial fibrillation type: persistent Qualified Code(s): I48.1 - Persistent atrial fibrillation
[2018-07-03] MEDS: LISINOPRIL 5 MG TABLET (FP) PO SCH (12:46)
[2018-07-03] MEDS: VITAMIN B COMP W-C 1 EA TABLET PO SCH (12:46)
[2018-07-03] MEDS: FOLIC ACID 1 MG TABLET (FP) PO SCH (12:46)
[2018-07-03] MEDS: ISOSORBIDE MONONITRATE 60 MG TAB.SR.24H (FP) PO SCH (12:46)
[2018-07-03] MEDS: ZINC SULFATE 220 MG CAPSULE (FP) PO SCH (12:46)
[2018-07-03] MEDS: IRON POLYSACCHARIDES 150 MG CAPSULE PO SCH (12:49)
[2018-07-03] MEDS ORDERED: PT OWN MED DRAWER 7, Y5N ONE (12:49)
--- NOTE | 2018-07-03 12:52 | DS ---
Physical Examination Vital Signs: Vital Signs Temperature 98.2 F 07/03/18 08:40 Pulse Rate 96 H 07/03/18 09:15 Respiratory Rate 18 07/03/18 09:15 Blood Pressure 94/50 L 07/03/18 09:15 O2 Sat by Pulse Oximetry (%) 97 07/03/18 01:00 Findings/Remarks: pt seen/ examined awake/ comfortable Constitutional: Yes: No Distress, Calm, Obese Eyes: Yes: Conjunctiva Clear Neck: Yes: Supple Cardiovascular: Yes: Regular Rate and Rhythm Respiratory: Yes: Diminished Gastrointestinal: Yes: Soft Edema: LLE: Trace, RLE: Trace Integumentary: Yes: Venous Stasis Changes (sacral also--stage II) Wound/Incision: Yes: Other Neurological: Yes: Alert Labs: CBC, BMP 07/03/18 08:50 Discharge Summary Reason For Visit: MRSA,UTI Current Active Problems Elevated INR (international normalized ratio) due to prior anticoagulant medication ingestion (Acute) UTI (urinary tract infection) (Acute) Hospital Course: Celine Muse is a 72 yr old F, ESRD MWF HD (via permacath installed in the right chest wall), COPD, diastolic CHF, Afib (on Coumadin), chronic venous insufficiency, IDDM, GERD, UTI, HTN, HLD, anemia, asthma, and osteoarthritis admitted under observation treated with antibiotics for UTI Coumadin does also decreased Wound culture----positive for MRSA Urine culture--- positive for Escherichia coli Now stable--- for discharge back to alf Recent on amoxicillin--- 500 mg after dialysis on dialysis days for 1 week MRSA precautions Discussed with ID Local wound care Medications reconciled Discussed with nursing staff also patient also in agreement Condition: Stable - Instructions Disposition: [facility] - Home Medications Comprehensive Discharge Medication List: Ambulatory Orders Atorvastatin Calcium 10 mg PO HS 10/14/17 Cholecalciferol (Vitamin D3) [Vitamin D3] 1,000 unit PO DAILY 10/14/17 Docusate Sodium [Colace] 100 mg PO HS 10/14/17 Folic Acid 1 mg PO DAILY 10/14/17 Gabapentin [Neurontin -] 100 mg PO Q8H 10/14/17 Insulin Detemir [Levemir Flextouch] 33 unit SQ HS 10/14/17 Lactulose 10 gm PO 10/14/17 Metoprolol Tartrate 50 mg PO Q8H 10/14/17 Multivitamin [Multiple Vitamins] 1 each PO DAILY 10/14/17 Ranitidine HCl 150 mg PO HS 10/14/17 Budesonide/Formeterol Fumarate [SYMBICORT 160/4.5mcg -] 1 inh PO BID 12/07/17 Epoetin [place] [Procrit] 10,000 unit IJ MOWEFR 12/07/17 Insulin Aspart [Novolog Flexpen] 5 unit SQ TIDCM 12/07/17 Iron Polysaccharide Complex [Ferrex 150] 150 mg PO DAILY 12/07/17 Silver Sulfadiazine 1% Top Cr [Silvadene -] 1 applic TP BID 12/07/17 Warfarin Sodium [Coumadin] 3 mg PO HS 12/07/17 Furosemide [Lasix -] 80 mg PO Q48H #20 tablet 12/21/17 Simethicone [Mylicon -] 80 mg PO QID PRN #20 tab.chew 12/21/17 Bacitracin - [Bacitracin Topical Ointment -] 500 unit TP BID MDD R NECK Vitamin B Comp W-C [Nephro-Essie -] 0.8 mg PO DAILY 12/29/17 Zinc Sulfate 220 mg PO DAILY MDD for 10 days 12/29/17 Isosorbide Mononitrate [Imdur -] 60 mg PO DAILY tab.sr.24h 01/02/18 Lisinopril [Prinivil] 5 mg PO DAILY tablet 01/02/18 Sennosides [Senna -] 2 tab PO HS tablet 01/02/18 Warfarin Na [Coumadin -] 3 mg PO DAILY@1800 tablet 01/02/18 Acetaminophen [Tylenol .Regular Strength -] 325 mg PO Q4H PRN 02/25/18 Oxycodone HCl/Acetaminophen [Percocet 5-325 mg Tablet] 2 tab PO Q6H PRN Polyethylene Glycol 3350 [Miralax 119 gm Btl -] 17 gm PO DAILY 02/25/18 Acetaminophen [Tylenol .Regular Strength -] 650 mg PO Q6H PRN tablet 07/03/18 Amoxicillin - [Amoxicillin 500mg Capsule -] 500 mg PO DAILY capsule 07/03/18 Atorvastatin Ca [Lipitor] 10 mg PO HS tablet 07/03/18 Docusate Sodium [Colace -] 100 mg PO HS capsule 07/03/18 Folic Acid - 1 mg PO DAILY tablet 07/03/18 Gabapentin [Neurontin -] 100 mg PO TID capsule 07/03/18 Insulin (Levemir) [Levemir Vial] 33 units SQ HS units 07/03/18 Metoprolol Tartrate [Lopressor -] 50 mg PO TID tablet 07/03/18 Ranitidine [Zantac -] 150 mg PO HS tablet 07/03/18 Warfarin Na [Coumadin -] 2 mg PO DAILY@1800 tablet 07/03/18 oxyCODONE HCL [Roxicodone -] 10 mg PO Q6H PRN #30 tablet MDD 4 07/03/18
[2018-07-03] MEDS: BUDESONIDE/FORMETEROL FUMARATE 160/4.5 mcg INHALER IH SCH (13:08)
[2018-07-03 13:24] LABS: CREATININE 2.4 mg/dL (0.55-1.3)
--- NOTE | 2018-07-03 14:27 | PN ---
Progress Note, Physician History of Present Illness: Pt seen and examined at bedside. She is awake and alert. She denies shortness of breath. She tolerated HD today. - Current Medication List Current Medications: Active Medications Acetaminophen (Tylenol -) 650 mg PO Q6H PRN PRN Reason: BACK PAIM SCALE 7-10 Last Admin: 07/03/18 12:56 Dose: 650 mg Amoxicillin (Amoxicillin -) 500 mg PO DAILY [facility] Atorvastatin Calcium (Lipitor -) 10 mg PO [facility] Last Admin: 07/02/18 22:11 Dose: 10 mg Budesonide/Formoterol Fumarate (Symbicort 160/4.5mcg -) 2 puff IH BID [facility] Last Admin: 07/03/18 13:08 Dose: 2 puff Docusate Sodium (Colace -) 100 mg PO [facility] Last Admin: 07/02/18 22:11 Dose: 100 mg Folic Acid (Folic Acid -) 1 mg PO DAILY [facility] Last Admin: 07/03/18 12:46 Dose: 1 mg Furosemide (Lasix -) 80 mg PO SuTuThSa@1000 [facility] Last Admin: 07/02/18 09:52 Dose: 80 mg Gabapentin (Neurontin -) 100 mg PO TID [facility] Last Admin: 07/03/18 06:17 Dose: 100 mg Sodium Chloride (Normal Saline -) 250 mls @ 3,000 mls/hr IV PRN PRN PRN Reason: Hypotension during Dialysis Stop: 07/03/18 16:50 Insulin Aspart (Novolog Vial Sliding Scale -) 1 vial SQ [facility]; Protocol Last Admin: 07/03/18 06:16 Dose: Not Given Insulin Detemir (Levemir Vial) 33 units SQ [facility] Last Admin: 07/02/18 22:11 Dose: 33 units Isosorbide Mononitrate (Imdur -) 60 mg PO DAILY [facility] Last Admin: 07/03/18 12:46 Dose: 60 mg Lisinopril (Prinivil) 5 mg PO DAILY [facility] Last Admin: 07/03/18 12:46 Dose: 5 mg Metoprolol Tartrate (Lopressor -) 50 mg PO TID [facility] Last Admin: 07/03/18 06:17 Dose: 50 mg Multivit/Ca Carb/B Cmplx/FA/Prenat (Nephro-Essie -) 1 tablet PO DAILY [facility] Last Admin: 07/03/18 12:46 Dose: 1 tablet Oxycodone HCl (Roxicodone -) 10 mg PO Q6H PRN PRN Reason: BACK PAIN SCALE 7-10 Last Admin: 07/03/18 12:54 Dose: 10 mg Polyethylene Glycol (Miralax (For Daily Use) -) 17 gm PO DAILY [facility] Last Admin: 07/03/18 09:00 Dose: Not Given Polysaccharide Iron Complex (Niferex-150 -) 150 mg PO DAILY [facility] Last Admin: 07/03/18 12:49 Dose: 150 mg Ranitidine HCl (Zantac -) 150 mg PO [facility] Last Admin: 07/02/18 22:11 Dose: 150 mg Senna (Senna -) 2 tab PO [facility] Last Admin: 07/02/18 22:10 Dose: 2 tab Silver Sulfadiazine (Silvadene -) 1 applic TP BID [facility] Last Admin: 07/02/18 22:12 Dose: 1 applic Simethicone (Mylicon -) 80 mg PO Q6H PRN PRN Reason: DYSPEPSIA Warfarin Sodium (Coumadin -) 3 mg PO DAILY@1800 [facility] Last Admin: 07/02/18 17:35 Dose: 3 mg Zinc Sulfate (Orazinc -) 220 mg PO DAILY [facility] Last Admin: 07/03/18 12:46 Dose: 220 mg - Objective Vital Signs: Vital Signs Temperature 98.2 F 07/03/18 08:40 Pulse Rate 76 07/03/18 12:30 Respiratory Rate 18 07/03/18 12:30 Blood Pressure 113/49 L 07/03/18 12:30 O2 Sat by Pulse Oximetry (%) 97 07/03/18 01:00 Constitutional: Yes: Calm Eyes: Yes: Conjunctiva Clear HENT: Yes: Atraumatic Cardiovascular: Yes: S1, S2 Respiratory: Yes: CTA Bilaterally Gastrointestinal: Yes: Soft, Abdomen, Obese Genitourinary: Yes: Incontinence Musculoskeletal: Yes: WNL Edema: No Neurological: Yes: Oriented Psychiatric: Yes: Oriented Labs: CBC, BMP 07/03/18 08:50 07/03/18 12:15 INR, PTT INR 2.47 (0.83-1.09) H 07/03/18 08:50 Problem List - Problems (1) UTI (urinary tract infection) Code(s): N39.0 - URINARY TRACT INFECTION, SITE NOT SPECIFIED Qualifiers: Urinary tract infection type: site unspecified Hematuria presence: without hematuria Qualified Code(s): N39.0 - Urinary tract infection, site not specified (2) End stage renal disease on dialysis Code(s): N18.6 - END STAGE RENAL DISEASE; Z99.2 - DEPENDENCE ON RENAL DIALYSIS Assessment/Plan Current Medications Generic Name Dose Route Start Last Admin Trade Name Freq PRN Reason Stop Dose Admin Acetaminophen 650 mg 06/29/18 20:49 07/03/18 12:56 Tylenol - PO 650 mg Q6H PRN Administration BACK PAIM SCALE 7-10 Amoxicillin 500 mg 07/03/18 20:00 Amoxicillin - PO DAILY [facility] Atorvastatin Calcium 10 mg 06/30/18 22:00 07/02/18 22:11 Lipitor - PO 10 mg HS [facility] Administration Budesonide/Formoterol Fumarate 2 puff 06/29/18 22:00 07/03/18 13:08 Symbicort 160/4.5mcg - IH 2 puff BID [facility] Administration Docusate Sodium 100 mg 06/30/18 22:00 07/02/18 22:11 Colace - PO 100 mg HS [facility] Administration Folic Acid 1 mg 06/30/18 10:00 07/03/18 12:46 Folic Acid - PO 1 mg DAILY [facility] Administration Furosemide 80 mg 06/29/18 20:30 07/02/18 09:52 Lasix - PO 80 mg SuTuThSa@1000 [facility] Administration Gabapentin 100 mg 06/30/18 06:00 07/03/18 06:17 Neurontin - PO 100 mg TID [facility] Administration Sodium Chloride 250 mls @ 3,000 mls/hr 07/02/18 16:50 Normal Saline - IV 07/03/18 16:50 PRN PRN Hypotension during Dialysis Insulin Aspart 1 vial 07/02/18 16:30 07/03/18 06:16 Novolog Vial Sliding Scale - SQ Not Given BIDAC [facility] Protocol Insulin Detemir 33 units 06/30/18 22:00 07/02/18 22:11 Levemir Vial SQ 33 units HS [facility] Administration Isosorbide Mononitrate 60 mg 06/30/18 10:00 07/03/18 12:46 Imdur - PO 60 mg DAILY [facility] Administration Lisinopril 5 mg 06/30/18 10:00 07/03/18 12:46 Prinivil PO 5 mg DAILY [facility] Administration Metoprolol Tartrate 50 mg 06/30/18 06:00 07/03/18 06:17 Lopressor - PO 50 mg TID [facility] Administration Multivit/Ca Carb/B Cmplx/FA/Prenat 1 tablet 06/30/18 10:00 07/03/18 12:46 Nephro-Essie - PO 1 tablet DAILY [facility] Administration Oxycodone HCl 10 mg 06/29/18 20:49 07/03/18 12:54 Roxicodone - PO 10 mg Q6H PRN Administration BACK PAIN SCALE 7-10 Polyethylene Glycol 17 gm 06/30/18 10:00 07/03/18 09:00 Miralax (For Daily Use) - PO Not Given DAILY [facility] Polysaccharide Iron Complex 150 mg 06/30/18 10:00 07/03/18 12:49 Niferex-150 - PO 150 mg DAILY [facility] Administration Ranitidine HCl 150 mg 06/30/18 22:00 07/02/18 22:11 Zantac - PO 150 mg HS [facility] Administration Senna 2 tab 06/29/18 22:00 07/02/18 22:10 Senna - PO 2 tab HS [facility] Administration Silver Sulfadiazine 1 applic 06/29/18 22:00 07/02/18 22:12 Silvadene - TP 1 applic BID [facility] Administration Simethicone 80 mg 06/29/18 20:03 Mylicon - PO Q6H PRN DYSPEPSIA Warfarin Sodium 3 mg 07/02/18 18:00 07/02/18 17:35 Coumadin - PO 3 mg DAILY@1800 [facility] Administration Zinc Sulfate 220 mg 06/30/18 10:00 07/03/18 12:46 Orazinc - PO 220 mg DAILY [facility] Administration Impression 1. ESRD 2. obesity 3. hyperlipidemia 4. HTN 5. DM 6. CHF 7. CAD 8. anemia 9. a-fib 10. iron deficiency 11. UTI 12. sepsis Plan - pt tolerated HD - she has HD set up as outpt - renal diet - mental status
[2018-07-03 14:44] VITALS: BP 130/57; PULSE 73; TEMP 98.6
[2018-07-03] MEDS: WARFARIN NA 3 MG TABLET PO SCH (17:08)
[2018-07-03] MEDS ORDERED: AMOXICILLIN 500 MG CAPSULE (FP) PO SCH (20:00)
== END 2018-07-03 17:42 ==
LOC: JER 13:19 → INTOOBSV 16:06 → UNDOADMOB 16:06 → JERBED 16:06 → J6S 21:30
PROVIDERS: ADMIT Internal Medicine; ATTEND Internal Medicine
PROC: 3E03329 Introduction of Other Anti-infective into Peripheral Vein, Percutaneous Approach (ICD-10-PCS; principal; 2018-06-29)
PROC: 3E033NZ Introduction of Analgesics, Hypnotics, Sedatives into Peripheral Vein, Percutaneous Approach (ICD-10-PCS; 2018-06-29)
PROC: 3E013VG Introduction of Insulin into Subcutaneous Tissue, Percutaneous Approach (ICD-10-PCS; 2018-06-29)
DX: N39.0 Urinary tract infection, site not specified (principal); B95.62 Methicillin resistant Staphylococcus aureus infection as the cause of diseases classified elsewhere; E11.22 Type 2 diabetes mellitus with diabetic chronic kidney disease; I12.0 Hypertensive chronic kidney disease with stage 5 chronic kidney disease or end stage renal disease; N18.6 End stage renal disease; Z99.2 Dependence on renal dialysis; Z79.4 Long term (current) use of insulin; E78.5 Hyperlipidemia, unspecified; I50.1 Left ventricular failure, unspecified; I11.0 Hypertensive heart disease with heart failure; I87.2 Venous insufficiency (chronic) (peripheral); I48.1 Persistent atrial fibrillation; J44.9 Chronic obstructive pulmonary disease, unspecified; M19.90 Unspecified osteoarthritis, unspecified site; K21.9 Gastro-esophageal reflux disease without esophagitis; R53.2 Functional quadriplegia; R79.1 Abnormal coagulation profile; G92 Toxic encephalopathy; I95.9 Hypotension, unspecified; D63.1 Anemia in chronic kidney disease; L89.90 Pressure ulcer of unspecified site, unspecified stage; Z79.01 Long term (current) use of anticoagulants; Z87.440 Personal history of urinary (tract) infections; E66.01 Morbid (severe) obesity due to excess calories; Z68.43 Body mass index [BMI] 50.0-59.9, adult
CPT/HCPCS: 36415; 71045-TC-FY; 80048; 80053; 81003; 82550; 82553; 82565; 82803; 82962; 83605; 83735; 83880; 84484; 84520; 85025; 85027; 85610; 85730; 86704; 86706; 86708; 86803; 87040; 87070; 87086; 87186; 87205; 87340; 93005; 93010; 94640; 96365; 96367; 96372; 96375; 99285-25; G0378; J0131; J0885

== ENCOUNTER 2018-09-12 08:04 | Inpatient (IN) | payer OTHER ==
--- NOTE | 2018-09-12 08:07 | PDOC ---
History of Present Illness <Mark Wilson - Last Filed: 09/12/18 10:40> - General History Source: Patient Exam Limitations: Clinical Condition - History of Present Illness Initial Comments: Pt is a 72 yo F, with PMH of ESRD (M/W/F, permacath R chest), COPD, dCHF, AFib ( on Coumadin), IDDM, HTN, HLD, and frequent UTI (Klebsiella, MRSA), who is presenting from [facility] with "lethargy" per usp. The pt does not know why she is in the ER, but endorses headache since "last night". Pt denies any fever, nausea, vomiting, SOB, urinary symptoms, or leg swelling from her baseline. Pt is not aware of any extremity or facial weakness. I phoned the [facility], and nursing staff stated the pt was last seen normal last night on rounds ~10 pm. Pt is known to have mild L-sided arm and leg weakness, but neglect and turning head to the R side are new symptoms discovered this AM. Social: Pt denies any cigarette, alcohol, or drug use. Pt denies any recent travel or sick contacts. Surgical: permacath placement Family: no relevant history. 09/12/18 13:02 <Cat Redman - Last Filed: 09/12/18 13:07> - General Stated Complaint: SOB Time Seen by Provider: 09/12/18 08:07 NIH Stroke Scale - Initial Evaluation Ask patient the month and their age: Answers one correctly <Mark Wilson - Last Filed: 09/12/18 10:40> - Last Known Well Date/Time & Onset Date Last Known Well: 09/11/18 Time Last Known Well: 22:00 - Initial Evaluation Level of consciousness: Alert Ask patient the month and their age: Answers both correctly Ask patient to open & close eyes; make fist and let go: Obeys both correctly Best gaze (horizontal eye movement): Forced deviation Visual field testing: Complete hemianopia Facial paresis (Show teeth/raise eyebrows/close eyes tight): Partial paralysis ( total or near paralysis of lower face) Motor Function: Left Arm: No effort against gravity Motor Function: Right Arm: Normal (extends arm 90 (or 45) degrees for 10 seconds without drift Motor Function: Left Leg: No effort against gravity Motor Function: Right Leg: Normal (extends leg 30 degrees for 5 seconds without drift) Limb Ataxia: No ataxia Sensory(Use pinprick test arms,legs,trunk,face/side to side): Severe to total sensory loss Best language (Describe picture, name items, read sentences): No Aphasia Dysarthria (read several words): Normal articulation Extinction and Inattention: Profound ewelina-inattention or extinction to more than one modality - Total Score NIH Stroke Scale Score: 16 <Cat Redman - Last Filed: 09/12/18 13:07> Past History <Mark Wilson - Last Filed: 09/12/18 10:40> - Travel Traveled outside of the country in the last 30 days: No Close contact w/someone who was outside of country & ill: No - Past Medical History Anemia: Yes Asthma: Yes Cancer: No Cardiac Disorders: Yes (atrial fibrilation) CVA: No COPD: Yes CHF: Yes Dementia: No Diabetes: Yes GI Disorders: Yes (GERD) Disorders: Yes (UTI) HTN: Yes Hypercholesterolemia: Yes Liver Disease: No Seizures: No Thyroid Disease: No - Surgical History Abdominal Surgery: No Appendectomy: No Cardiac Surgery: No Cholecystectomy: No Lung Surgery: No Neurologic Surgery: No Orthopedic Surgery: Yes (L. Ankle sx, L.leg) - Immunization History Immunization Up to Date: Yes - Suicide/Smoking/Psychosocial Hx Smoking Status: No Smoking History: Never smoked Have you smoked in the past 12 months: No Number of Cigarettes Smoked Daily: 0 Hx Alcohol Use: No Drug/Substance Use Hx: No Substance Use Type: None Hx Substance Use Treatment: No <Cat Redman - Last Filed: 09/12/18 13:07> - Past Medical History Allergies/Adverse Reactions: Allergies Allergy/AdvReac Type Severity Reaction Status Date / Time No Known Allergies Allergy Verified 09/12/18 11:17 Home Medications: Ambulatory Orders Acetaminophen [Tylenol -] 500 mg PO Q4H PRN 09/12/18 Atorvastatin Ca [Lipitor] 20 mg PO HS 09/12/18 Budesonide/Formeterol Fumarate [SYMBICORT 160/4.5mcg -] 1 inh PO BID 09/12/18 Cholecalciferol (Vitamin D3) [Vitamin D3] 1,000 unit PO DAILY 09/12/18 Folic Acid - 1 mg PO DAILY 09/12/18 Furosemide 80 mg PO ASDIR 09/12/18 Insulin Glargine,Hum.rec.anlog [Basaglar Alexikpen U-100] 33 unit SQ HS 09/12/18 Isosorbide Mononitrate [Isosorbide Mononitrate ER] 60 mg PO DAILY 09/12/18 Lisinopril 5 mg PO DAILY 09/12/18 Metoprolol Tartrate 50 mg PO Q8H 09/12/18 Polyethylene Glycol 3350 [Miralax (For Daily Use) -] 17 gm PO BID 09/12/18 Ranitidine [Zantac -] 150 mg PO HS 09/12/18 Sennosides [Senna] 2 tab PO HS 09/12/18 Simethicone 80 mg PO Q4H PRN 09/12/18 Vitamin B Comp W-C [Nephro-Essie -] 1 tablet PO DAILY 09/12/18 Zinc Oxide 20% Topical Oint 454 gm NR BID 09/12/18 Review of Systems - Review of Systems Able to Perform ROS?: Yes (limited) Is the patient limited Guatemalan proficient: No Constitutional: No: Chills, Diaphoresis, Fever, Loss of Appetite, Weakness (pt unaware of weakness) HEENTM: No: Blurred Vision, Double Vision, Nose Congestion, Difficulty Swallowing Respiratory: No: Cough, Orthopnea, Shortness of Breath Cardiac (ROS): No: Chest Pain, Syncope ABD/GI: No: Constipated, Diarrhea, Nausea, Poor Appetite, Poor Fluid Intake, Vomiting : Yes: Incontinence (wears diaper). No: Burning, Urgency Musculoskeletal: No: Back Pain, Joint Pain Neurological: Yes: See HPI (pt unaware of symptoms, only endorses headache), Headache Psychiatric: No: Sleep Pattern Change, Change in Appetite Endocrine: No: Increased Urine, Change in Weight Hematologic/Lymphatic: No: Anemia, Blood Clots (on coumadin for afib) <Cat Redman - Last Filed: 09/12/18 13:07> *Physical Exam - Vital Signs Last Vital Signs Temp Pulse Resp BP Pulse Ox 99.1 F 120 H 18 109/76 100 09/12/18 08:05 09/12/18 08:05 09/12/18 08:05 09/12/18 08:05 09/12/18 08:05 <Mark Wilson - Last Filed: 09/12/18 10:40> - Physical Exam Comments: Vitals stable, O2 100% on 4L O2, pt afebrile. Pt in NAD, morbidly obese body habitus. Pt has head turned to the right. Pt alert and oriented x3, but does not accept that she is in the hospital and is not aware of her symptoms. Eyes deviated to the R, L visual neglect. L sided arm and leg complete neglect. Will move L leg on her own, but neglects L leg and does not hold to gravity ( see NIHSS). R-sided facial droop. No midline spinal tenderness, step-offs, or crepitus. Head normocephalic, atraumatic. Eyes PERRLA, EOMI. Oropharynx without erythema or exudates, no LAD b/l. No nasal congestion, hearing intact. Clear heart sounds, S1/S2, no JVD, or heart murmur. Mild b/l pedal edema. Clear lung sounds, no respiratory distress, wheezes, crackles, or accessory muscle use. No abdominal or CVA tenderness to palpation, no rebound, no guarding. Abdomen soft, protuberant, and with normoactive bowel sounds. Skin without jaundice or rash. 09/12/18 10:33 09/12/18 10:53 <Cat Redman - Last Filed: 09/12/18 13:07> ED Treatment Course - LABORATORY CBC & Chemistry Diagram: 09/12/18 08:34 09/12/18 08:34 - ADDITIONAL ORDERS Additional order review: Laboratory Results 09/12/18 09/12/18 09/12/18 08:34 08:34 08:34 PT with INR Sodium 137 Potassium 5.0 Chloride 100 Carbon Dioxide 26 Anion Gap 11 BUN 25 H Creatinine 5.3 H Est GFR (CKD-EPI)AfAm 8.68 Est GFR (CKD-EPI)NonAf 7.49 Random Glucose 210 H Lactic Acid 2.8 H* Calcium 9.1 Total Bilirubin 0.4 AST 55 H ALT 24 Alkaline Phosphatase 61 Troponin I 0.07 H B-Natriuretic Peptide 53326.1 H Total Protein 7.6 Albumin 3.3 L Triglycerides 218 H Cholesterol 235 H Total LDL Cholesterol 155 H HDL Cholesterol 53 Urine Color Urine Appearance Urine pH Ur Specific [place] Urine Protein Urine Glucose (UA) Urine Ketones Urine Blood Urine Nitrite Urine Bilirubin Urine Urobilinogen Ur Leukocyte Esterase 09/12/18 09/12/18 08:34 08:30 PT with INR 91.60 H Sodium Potassium Chloride Carbon Dioxide Anion Gap BUN Creatinine Est GFR (CKD-EPI)AfAm Est GFR (CKD-EPI)NonAf Random Glucose Lactic Acid Calcium Total Bilirubin AST ALT Alkaline Phosphatase Troponin I B-Natriuretic Peptide Total Protein Albumin Triglycerides Cholesterol Total LDL Cholesterol HDL Cholesterol Urine Color Dk yellow Urine Appearance Turbid Urine pH 5.0 D Ur Specific [place] 1.020 Urine Protein 30 Urine Glucose (UA) 250 Urine Ketones Negative Urine Blood 3+ H Urine Nitrite Positive H Urine Bilirubin Small Urine Urobilinogen 0.2 Ur Leukocyte Esterase 3+ H 09/12/18 08:34 RBC 4.29 MCV 107.3 H MCHC 31.8 L RDW 16.3 H MPV 8.9 D Neutrophils % 67.0 Lymphocytes % 25.4 Monocytes % 5.9 Eosinophils % 0.8 Basophils % 0.9 <Mark Wilson - Last Filed: 09/12/18 10:40> - LABORATORY CBC & Chemistry Diagram: 09/12/18 08:34 09/12/18 08:34 <Cat Redman - Last Filed: 09/12/18 13:07> Medical Decision Making - Critical Care Time Total Critical Care Time (minutes): 120 Critical Care Statement: The care of this patient involved high complexity decision making to prevent further life threatening deterioration of the patient 's condition and/or to evaluate & treat vital organ system(s) failure or risk of failure. - Medical Decision Making Pt was seen at bedside, also will be seen by attending Dr. Wilson. Pt presenting from [facility] with "lethargy" per usp. The pt does not know why she is in the ER, but endorses headache since "last night". Pt denies any fever, nausea, vomiting, SOB, urinary symptoms, or leg swelling from her baseline. Pt is not aware of any extremity or facial weakness. I phoned the [facility], and nursing staff stated the pt was last seen normal last night on rounds ~10 pm. Pt is known to have mild L-sided arm and leg weakness, but neglect and turning head to the R side are new symptoms discovered this AM. Considering ischemic stroke vs hemorrhage/aneurysm vs sepsis/infectious source of AMS. BGM adequate by EMS, not hypoglycemic episode. Will also check for electrolyte abnormalities as pt is ESRD. Ordered work-up including sepsis and stroke protocol, CT and CTA. Will continue to reassess pt and monitor for symptomatic improvement. ECG: A Fib with RVR (HR 110, QRS 84, QTc 492). No TWIs or significant ST segment changes. No significant changes from prior ECG. 09/12/18 10:57 Spoke with pts (Raymundo) along with the neurosurgery team, who will speak to the family regarding possible interventions. Ordered 6 units FFP, 10 Vitamin K to reverse Coumadin. Pt signed transfusion Providing 1 g keppra for sz prophylaxis, and 1 mg/kg mannitol for ICP. Providing 1 g ofirmev for headache. UA shows nitrite positive urine -- treating with [address]: Large acute hematoma in the right temporal and frontal lobe that may be involving lateral aspect of the right basal ganglia measuring 7.2 x 4.3 cm with surrounding edema , mass effect, effacement of the right lateral ventricle and shift of the midline structures towards the left side, approximately 5 mm. Differential diagnosis includes a large hemorrhagic infarct. Case discussed with Dr. Garza, emergency room attending physician. Last BP 170s systolic -- starting nicardipine drip, 5 mg/hr 09/12/18 11:08 Pt BP more stable 110s/70s, nicardipine drip was not given. Pt receiving other pharmacological interventions. Pt signed DNR/DNI form by verbal consent (pt cannot physically sign form with pen). DNR/DNI signed by Dr. Wilson and myself. Pt and (confirmed on the phone) do not want to pursue intubation nor surgery, and the pt wishes to "only be treated with medication". Pt accepted to ICU per PCP (Dr. Mo). Pt mental status changing, is less aware of surroundings, but is protecting airway and is able to carry on a conversation. Pt continues to be A/Ox3 and "does not want surgery and is ready to go upstairs to the ICU". 09/12/18 12:42 <Cat Redman - Last Filed: 09/12/18 13:07> *DC/Admit/Observation/Transfer <Mark Wilson - Last Filed: 09/12/18 10:40> - Discharge Dispostion Decision to Admit order: Yes <Cat Redman - Last Filed: 09/12/18 13:07> Diagnosis at time of Disposition: Elevated INR (international normalized ratio) due to prior anticoagulant medication ingestion, End stage renal disease on dialysis Intracerebral hemorrhage Qualifiers: Intracerebral hemorrhage etiology: nontraumatic Cerebral hemorrhage location: cerebral hemisphere, cortical portion Laterality: right Qualified Code(s): I61.1 - Nontraumatic intracerebral hemorrhage in hemisphere, cortical COPD (chronic obstructive pulmonary disease) Qualifiers: COPD type: unspecified COPD Qualified Code(s): J44.9 - Chronic obstructive pulmonary disease, unspecified - Discharge Dispostion Condition at time of disposition: Guarded - Patient Instructions - Post Discharge Activity
[2018-09-12 09:14] LABS: BASO % 0.9 % (0-2.0); EOS % 0.8 % (0-4.5); HEMATOCRIT 46.1 % (32.4-45.2); HEMOGLOBIN 14.6 GM/dL (10.7-15.3); LYMPH % 25.4 % (8-40); MCH 34.1 pg (25.7-33.7); MCHC 31.8 g/dl (32.0-36.0); MEAN CELL VOLUME 107.3 fl (80-96); MONO % 5.9 % (3.8-10.2); RBC 4.29 M/mm3 (3.60-5.2); RDW 16.3 % (11.6-15.6); WHITE BLOOD COUNT 11.6 K/mm3 (4.0-10.0)
[2018-09-12 09:22] LABS: PROTHROMBIN TIME (PATIENT) 91.6 SEC (9.7-13.0)
--- NOTE | 2018-09-12 09:27 | PDOC ---
Documentation entered by Alexis Lazcano SCRIBE, acting as scribe for Mark Wilson MD. Mark Wilson MD: This documentation has been prepared by the Neno barba Nirvannie, SCRIBE, under my direction and personally reviewed by me in its entirety. I confirm that the documentation accurately reflects all work, treatment, procedures, and medical decision making performed by me. Attending Attestation - Resident Resident Name: Cat Redman - ED Attending Attestation I have performed the following: I have examined & evaluated the patient, The case was reviewed & discussed with the resident, I agree w/resident's findings & plan - HPI HPI: 09/12/18 09:23 72-year-old female with history of hypertension, end-stage renal disease on Tuesday/Tuesday/Tuesday dialysis at long-term, last seen normal at 10 PM last night, baseline restricted to bed and wheelchair, found with change in mental status and tachycardia. Question COPD versus sepsis versus stroke in route with EMS. - Physicial Exam PE: 09/12/18 09:24 Vitals as noted On exam, morbidly obese, alert, following commands and conversant patient has left neglect with left-sided arm and leg weakness, dysarthria but no aphasia Heart is irregular with normal rate Abdomen benign - Critical Care Time Total Critical Care Time: 110 Critical Care Statement: The care of this patient involved high complexity decision making to prevent further life threatening deterioration of the patient 's condition and/or to evaluate & treat vital organ system(s) failure or risk of failure. - Medical Decision Making 09/12/18 09:25 72-year-old female with likely acute CVA, last known well was 10 hours prior to presentation, has clinical picture for large vessel lesion, rule out hemorrhage. Stroke protocol initiated CT delay in order to obtain IV access We'll perform CT and CTA to identify large vessel occlusion Labs, EKG Admit versus transfer 09/12/18 09:44 ct shows large R intraparenchymal bleed with 5mm shift. neurosurgery paged. vitamin k and ffp for coumadin reversal (PT > 90) seizure prophylaxis UA with + nitr/leuk, urine culture in lab, wbc 11. will treat for presumed UTI. 09:50am Call placed to Dr. Preciado, neurosurgeon television engineer, EM resident Dr. Mark Redman discussed case. 09/12/18 10:[address] Preciado at bedside. CTA to r/o aneurysm (would require transfer), otherwise admit to ICU. agrees with coumadin reversal, seizure ppx. hold mannitol for now. will contact next of kin. 09/12/18 11:33 CTA pending. clinically unchanged. obtaining additional IV access for cardene, mannitol drips. Discussed with Dr. Reddy, accepted for admission. ICU consult. 09/12/18 12:26 Discussion with patient and family regarding goals of care. Explained diagnosis , options, and prognosis. Pt understands severity of illness, states she would like all medications given to halt/reverse progress, but would not want to be intubated or have any operations on her brain. Dr. Redman spoke to , who states they have had similar discussions in the past. Pt requests to be DNI and currently declining surgery. Sister en route and will continue discussion. Accepted for ICU. Blood pressure 110-121 systolic so cardene held. Vit K given, Mannitol and FFP infusing. Heart Score/ECG Review #1 ECG reviewed & interpreted by me at: 08:16 General ECG Interpretation: Normal Rate (afib at 110), Normal Intervals (qtc 492 ), No acute ischemic changes (TWI I/AVL)
[2018-09-12] MEDS ORDERED: PHYTONADIONE 10 MG/1 ML AMP IVPB ONE (09:38)
[2018-09-12 09:39] LABS: ALBUMIN 3.3 g/dl (3.4-5.0); BILIRUBIN,TOTAL 0.4 mg/dL (0.2-1); CALCIUM 9.1 mg/dL (8.5-10.1); CREATININE 5.3 mg/dL (0.55-1.3); N-TERMINAL BNP 11089.1 pg/ml (5-125); TOT PROT 7.6 g/dl (6.4-8.2)
[2018-09-12 09:41] LABS: URINE APPEARANCE TURBID; URINE BILIRUBIN SMALL (NEGATIVE); URINE COLOR DK YELLOW; URINE GLUCOSE (UA) 250 (NEGATIVE); URINE KETONE NEGATIVE (NEGATIVE)
[2018-09-12 09:42] LABS: URINE LEUK ESTERASE 3+ (NEGATIVE); URINE NITRITE POSITIVE (NEGATIVE); URINE PROTEIN 30 (NEGATIVE); URINE UROBILINOGEN 0.2 mg/dL (0.2-1.0)
--- NOTE | 2018-09-12 09:57 | EKG ---
Test Reason : Blood Pressure : / mmHG Vent. Rate : 110 BPM Atrial Rate : 111 BPM P-R Int : 000 ms QRS Dur : 084 ms QT Int : 364 ms P-R-T Axes : 000 029 127 degrees QTc Int : 492 ms Likely multiatrial tachycardia vs sinus with frequent APCs. ABNORMAL ECG Confirmed by MD KRISTEN, CAROLIN ([id number]) on 09/12/2018 9:56:53 AM Referred By: Confirmed By:CAROLIN PETERSON MD
[2018-09-12] MEDS ORDERED: PHYTONADIONE 10 MG/1 ML AMP ONE (10:03)
[2018-09-12] MEDS ORDERED: levETIRAcetam 500 MG/5 ML INJECTION VIAL IVPB ONE ×2 (10:31→11:29)
[2018-09-12] MEDS ORDERED: ACETAMINOPHEN 1000 MG/100 ML VIAL (NON FORMULARY) IVPB ONE (10:31)
[2018-09-12] MEDS ORDERED: CEFTRIAXONE 1,000 MG in DEXTROSE 5%-WATER - 50 ML IVPB ONE (10:35)
[2018-09-12 10:39] LABS: INR 7.61 (0.83-1.09)
[2018-09-12 10:46] LABS: VENOUS PC02 48.3 mmHg (41-51); VENOUS PH 7.37 (7.31-7.41)
[2018-09-12 10:47] LABS: VENOUS PO2 15.4 mmHg (30-40)
[2018-09-12] MEDS ORDERED: MANNITOL 25% 12.5 GM/50 ML VIAL IVPB ONE (10:49)
[2018-09-12] MEDS ORDERED: NICARDIPINE 25 MG in DEXTROSE 5%-WATER - 240 ML IVPB SCH (11:15)
[2018-09-12 11:24] LABS: ANISOCYTOSIS 1+; MACROCYTOSIS 1+
[2018-09-12] MEDS ORDERED: ACETAMINOPHEN INJECTION 100 ML IVPB ONE (11:29)
[2018-09-12] MEDS ORDERED: CEFTRIAXONE 1 GM/50 ML BAG ONE (11:30)
--- NOTE | 2018-09-12 13:09 | CONSULT ---
Consultation: REQUESTING PROVIDER: CONSULT REQUEST: We have been asked to medically evaluate this patient for ( specify). Pt seen at bedside and evaluated. 72 yo female pmh ESRD (M/W/F, permacath R chest), COPD, dCHF, AFib (on Coumadin) , IDDM, HTN, HLD, and frequent UTI (Klebsiella, MRSA) BIBA from [facility] for reports of lethargy. Pt has complaint of MORALES today with noted left sided neglect, left sided weakness and left sided facial droop with dysarthria Head CT: Large acute hematoma in the right temporal and frontal lobe that may be involving lateral aspect of the right basal ganglia measuring 7.2 x 4.3 cm with surrounding edema , mass effect, effacement of the right lateral ventricle and shift of the midline structures towards the left side, approximately 5 mm. Differential diagnosis includes a large hemorrhagic infarct. Per ED note, nursing staff stated the pt was last seen normal last night on rounds ~10 pm. Pt is known to have mild L-sided arm and leg weakness, but neglect and turning head to the R side are new symptoms discovered this AM. Pt has full capacity and expresses wish to have only medical treatment, no surgical treatment and has DNR/DNI signed. ED plan/meds: 6 units FFP and 10 Vitamin K to reverse Coumadin. 1 g keppra for sz prophylaxis, and 1 mg/kg mannitol for ICP. 1 g ofirmev for headache. 1 g ceftriaxone for UTI Neurosurgery assessed pt, pt does not wish to have a surgical intervention at this time along with elevated INR, pt is not a surgical candidate HISTORY OF PRESENT ILLNESS: PHYSICAL EXAMINATION Vital Signs - 24 hr 09/12/18 09/12/18 09/12/18 08:05 09:48 11:45 Temperature 99.1 F 98 F Pulse Rate 120 H Pulse Rate [ 117 H 109 H Left Radial] Respiratory 18 20 22 H Rate Blood Pressure 109/76 Blood Pressure 164/64 129/83 [Right Arm] O2 Sat by Pulse 100 99 100 Oximetry (%) GENERAL: Awake, alert, and fully oriented HEAD: Normal with no signs of trauma. EYES: Pupils equal, round and reactive to light, extraocular movements not intact (left sided neglect), sclera anicteric, conjunctiva clear. No lid lag. EARS, NOSE, THROAT: Ears normal, nares patent, oropharynx clear without exudates. Moist mucous membranes. NECK: Normal range of motion, supple without lymphadenopathy, JVD, or masses. LUNGS: Breath sounds equal, clear to auscultation bilaterally. No wheezes, and no crackles. No accessory muscle use. HEART: Regular rate and rhythm, normal S1 and S2 without murmur, rub or gallop. ABDOMEN: Soft, nontender, not distended, normoactive bowel sounds, no guarding, no rebound, no masses. No hepatomegaly or splenomegaly. MUSCULOSKELETAL: Normal range of motion at all joints. No bony deformities or tenderness. No CVA tenderness. UPPER EXTREMITIES: 2+ pulses, warm, well-perfused. No cyanosis. No clubbing. Cap refill <2 seconds. No peripheral edema. LOWER EXTREMITIES: 2+ pulses, warm, well-perfused. No calf tenderness. No peripheral edema. NEUROLOGICAL:Refer to NIH scale PSYCHIATRIC: Cooperative. Good eye contact. Appropriate mood and affect. SKIN: Warm, dry, normal turgor, no rashes or lesions noted. Laboratory Results - last 24 hr 09/12/18 09/12/18 09/12/18 08:30 08:34 08:34 WBC 11.6 H RBC 4.29 Hgb 14.6 Hct 46.1 H D MCV 107.3 H MCH 34.1 H MCHC 31.8 L RDW 16.3 H Plt Count 235 MPV 8.9 D Absolute Neuts (auto) 7.8 Neutrophils % 67.0 Lymphocytes % 25.4 Monocytes % 5.9 Eosinophils % 0.8 Basophils % 0.9 Nucleated RBC % 0 Hypochromia 0 Polychromasia 1+ Poikilocytosis 0 Anisocytosis 1+ Microcytosis 0 Macrocytosis 1+ PT with INR 91.60 H INR 7.61 H* PTT (Actin FS) 88.0 H VBG pH POC VBG pCO2 POC VBG pO2 VBG HCO3 VBG O2 Sat (Daniel) VBG Base Excess Sodium Potassium Chloride Carbon Dioxide Anion Gap BUN Creatinine Est GFR (CKD-EPI)AfAm Est GFR (CKD-EPI)NonAf Random Glucose Lactic Acid Calcium Total Bilirubin AST ALT Alkaline Phosphatase Troponin I B-Natriuretic Peptide Total Protein Albumin Triglycerides Cholesterol Total LDL Cholesterol HDL Cholesterol Urine Color Dk yellow Urine Appearance Turbid Urine pH 5.0 D Ur Specific [place] 1.020 Urine Protein 30 Urine Glucose (UA) 250 Urine Ketones Negative Urine Blood 3+ H Urine Nitrite Positive H Urine Bilirubin Small Urine Urobilinogen 0.2 Ur Leukocyte Esterase 3+ H Blood Type Antibody Screen 09/12/18 09/12/18 09/12/18 08:34 08:34 08:34 WBC RBC Hgb Hct MCV MCH MCHC RDW Plt Count MPV Absolute Neuts (auto) Neutrophils % Lymphocytes % Monocytes % Eosinophils % Basophils % Nucleated RBC % Hypochromia Polychromasia Poikilocytosis Anisocytosis Microcytosis Macrocytosis PT with INR INR PTT (Actin FS) VBG pH POC VBG pCO2 POC VBG pO2 VBG HCO3 VBG O2 Sat (Daniel) VBG Base Excess Sodium 137 Potassium 5.0 Chloride 100 Carbon Dioxide 26 Anion Gap 11 BUN 25 H Creatinine 5.3 H Est GFR (CKD-EPI)AfAm 8.68 Est GFR (CKD-EPI)NonAf 7.49 Random Glucose 210 H Lactic Acid 2.8 H* Calcium 9.1 Total Bilirubin 0.4 AST 55 H ALT 24 Alkaline Phosphatase 61 Troponin I 0.07 H B-Natriuretic Peptide 96873.1 H Total Protein 7.6 Albumin 3.3 L Triglycerides 218 H Cholesterol 235 H Total LDL Cholesterol 155 H HDL Cholesterol 53 Urine Color Urine Appearance Urine pH Ur Specific [place] Urine Protein Urine Glucose (UA) Urine Ketones Urine Blood Urine Nitrite Urine Bilirubin Urine Urobilinogen Ur Leukocyte Esterase Blood Type Antibody Screen 09/12/18 09/12/18 10:22 10:22 WBC RBC Hgb Hct MCV MCH MCHC RDW Plt Count MPV Absolute Neuts (auto) Neutrophils % Lymphocytes % Monocytes % Eosinophils % Basophils % Nucleated RBC % Hypochromia Polychromasia Poikilocytosis Anisocytosis Microcytosis Macrocytosis PT with INR INR PTT (Actin FS) VBG pH 7.37 POC VBG pCO2 48.3 POC VBG pO2 15.4 L VBG HCO3 27.2 VBG O2 Sat (Daniel) 16.4 L VBG Base Excess 1.4 Sodium Potassium Chloride Carbon Dioxide Anion Gap BUN Creatinine Est GFR (CKD-EPI)AfAm Est GFR (CKD-EPI)NonAf Random Glucose Lactic Acid Calcium Total Bilirubin AST ALT Alkaline Phosphatase Troponin I B-Natriuretic Peptide Total Protein Albumin Triglycerides Cholesterol Total LDL Cholesterol HDL Cholesterol Urine Color Urine Appearance Urine pH Ur Specific [place] Urine Protein Urine Glucose (UA) Urine Ketones Urine Blood Urine Nitrite Urine Bilirubin Urine Urobilinogen Ur Leukocyte Esterase Blood Type O POSITIVE Antibody Screen Negative ASSESSMENT/PLAN: Dispo: We will continue to follow the patient. Thank you for this consultative opportunity. 72 yo female pmh ESRD (M/W/F, permacath R chest), COPD, dCHF, AFib (on Coumadin) , IDDM, HTN, HLD, and frequent UTI (Klebsiella, MRSA) BIBA from [facility] for reports of lethargy. Pt has complaint of MOARLES today with noted left sided neglect, left sided weakness and left sided facial droop with dysarthria Head CT: Large acute hematoma in the right temporal and frontal lobe that may be involving lateral aspect of the right basal ganglia measuring 7.2 x 4.3 cm with surrounding edema , mass effect, effacement of the right lateral ventricle and shift of the midline structures towards the left side, approximately 5 mm. Differential diagnosis includes a large hemorrhagic infarct. Per ED note, nursing staff stated the pt was last seen normal last night on rounds ~10 pm. Pt is known to have mild L-sided arm and leg weakness, but neglect and turning head to the R side are new symptoms discovered this AM. Pt has full capacity and expresses wish to have only medical treatment, no surgical treatment and has DNR/DNI signed. ED plan/meds: 6 units FFP and 10 Vitamin K to reverse Coumadin. 1 g keppra for sz prophylaxis, and 1 mg/kg mannitol for ICP. 1 g ofirmev for headache. 1 g ceftriaxone for UTI Neurosurgery assessed pt, pt does not wish to have a surgical intervention at this time along with elevated INR, pt is not a surgical candidate PLAN: Control BP 140-160. Consider Cardene drip if BP uncontrolled. Reassess BP Q1 hour Reassess INR after FFP/vit K for reversal Mannitol Q 1 hour neuro checks Keppra 1 g for seizure prophylaxis Elevate head of the bed 45 degrees Emperic antibiotics for UTI Pt does not require ICU admission at this time due to only requesting medical management and DNR/DNI status at this time. If wishes change or pt requires BP control with a drip, please contact the ICU and we will reassess pt and consider admission once again. Visit type - Emergency Visit Emergency Visit: Yes ED Registration Date: 09/12/18 Care time: The patient presented to the Emergency Department on the above date and was hospitalized for further evaluation of their emergent condition. - New Patient This patient is new to me today: Yes Date on this admission: 09/12/18 - Critical Care Critical Care patient: Yes Total Critical Care Time (in minutes): 60 Critical Care Statement: The care of this patient involved high complexity decision making to prevent further life threatening deterioration of the patient 's condition and/or to evaluate & treat vital organ system(s) failure or risk of failure. NIH Stroke Scale - Last Known Well Date/Time & Onset Date Last Known Well: 09/11/18 Time Last Known Well: 22:00 - Initial Evaluation Level of consciousness: Alert Ask patient the month and their age: Answers both correctly Ask patient to open & close eyes; make fist and let go: Obeys both correctly Best gaze (horizontal eye movement): Partial gaze palsy Visual field testing: Partial hemianopia Facial paresis (Show teeth/raise eyebrows/close eyes tight): Partial paralysis ( total or near paralysis of lower face) Motor Function: Left Arm: No effort against gravity Motor Function: Right Arm: Normal (extends arm 90 (or 45) degrees for 10 seconds without drift Motor Function: Left Leg: Some effort against gravity Motor Function: Right Leg: Normal (extends leg 30 degrees for 5 seconds without drift) Limb Ataxia: Present in one limb Sensory(Use pinprick test arms,legs,trunk,face/side to side): Mild to moderate decrease in sensation Best language (Describe picture, name items, read sentences): Mild to moderate aphasia Dysarthria (read several words): Mild to moderate slurring of words Extinction and Inattention: No abnormality - Total Score NIH Stroke Scale Score: 13
--- NOTE | 2018-09-12 13:16 | PN ---
Teaching Attending Note Name of Resident: Dallas Bruce ATTENDING PHYSICIAN STATEMENT I saw and evaluated the patient. I reviewed the resident's note and discussed the case with the resident. I agree with the resident's findings and plan as documented. SUBJECTIVE: 72 F, well known to me from previous admissions. ESRD on HD (M/W/F, permacath R chest), COPD, diastolic CHF, AFib on Coumadin, IDDM, HTN, HLD, and frequent UTI (Klebsiella, MRSA), and OSAS. Admitted via the ER from [facility] due to lethargy per long-term. Last known normal was at 10 PM last night. Noted to have left sided weakness on exam. (LUE: 0/5. LLE 2/5) CT head: large intrparenchymal bleed on the right with midline shift. Patient is awake and alert and interactive. She does recognize from previous interactions. She denies CP or SOB. She does report non-specific headache. Intake & Output 09/09/18 09/10/18 09/11/18 09/12/18 23:59 23:59 23:59 23:59 Weight 270 lb Last Vital Signs Temp Pulse Resp BP Pulse Ox 98 F 109 H 22 H 129/83 100 09/12/18 11:45 09/12/18 11:45 09/12/18 11:45 09/12/18 11:45 09/12/18 11:45 Constitutional: awake and alert, confused, NAD HEENT: Eyes deviated to the R, L visual neglect. (-) Pallor (-) Icterus Lungs: Clear to auscultation Cardiac: AFib Abdomen: Soft, obese, non-tender, (+) BS EXT: (-) edema Neuro: Eyes deviated to the R, L visual neglect. L sided arm and leg complete neglect. Spontaneous movement of L leg Laboratory Results 09/12/18 09/12/18 09/12/18 08:34 08:34 08:34 PT with INR Sodium 137 Potassium 5.0 Chloride 100 Carbon Dioxide 26 Anion Gap 11 BUN 25 H Creatinine 5.3 H Est GFR (CKD-EPI)AfAm 8.68 Est GFR (CKD-EPI)NonAf 7.49 Random Glucose 210 H Lactic Acid 2.8 H* Calcium 9.1 Total Bilirubin 0.4 AST 55 H ALT 24 Alkaline Phosphatase 61 Troponin I 0.07 H B-Natriuretic Peptide 42390.1 H Total Protein 7.6 Albumin 3.3 L Triglycerides 218 H Cholesterol 235 H Total LDL Cholesterol 155 H HDL Cholesterol 53 Urine Color Urine Appearance Urine pH Ur Specific [place] Urine Protein Urine Glucose (UA) Urine Ketones Urine Blood Urine Nitrite Urine Bilirubin Urine Urobilinogen Ur Leukocyte Esterase 09/12/18 09/12/18 08:34 08:30 PT with INR 91.60 H Sodium Potassium Chloride Carbon Dioxide Anion Gap BUN Creatinine Est GFR (CKD-EPI)AfAm Est GFR (CKD-EPI)NonAf Random Glucose Lactic Acid Calcium Total Bilirubin AST ALT Alkaline Phosphatase Troponin I B-Natriuretic Peptide Total Protein Albumin Triglycerides Cholesterol Total LDL Cholesterol HDL Cholesterol Urine Color Dk yellow Urine Appearance Turbid Urine pH 5.0 D Ur Specific [place] 1.020 Urine Protein 30 Urine Glucose (UA) 250 Urine Ketones Negative Urine Blood 3+ H Urine Nitrite Positive H Urine Bilirubin Small Urine Urobilinogen 0.2 Ur Leukocyte Esterase 3+ H 09/12/18 08:34 RBC 4.29 MCV 107.3 H MCHC 31.8 L RDW 16.3 H MPV 8.9 D Neutrophils % 67.0 Lymphocytes % 25.4 Monocytes % 5.9 Eosinophils % 0.8 Basophils % 0.9 IMP: Acute Right temporal / frontal intracerebral hemorrhage Coagulopathy due to Coumadin ESRD on HD (M/W/F, permacath R chest) COPD Diastolic CHF AFib on Coumadin IDDM HTN HLD History of frequent UTI (Klebsiella, MRSA) OSAS R/O UTI PLAN: SBP: 140 to 160. If an agent is needed for BP management -> can use Cardene. Aspiration precautions Reverse Coagulopathy: FFP / Vitamin K to reverse Coumadin Keppra for sz prophylaxis Empiric ABX for possible UTI Neuro checks I have taken care of Celine in the past and she has expressed previously that she would not want mechanical ventilation and CPR. She has again confirmed those wishes. She is DNR/DNI. She has also declined neurosurgical intervention and requests to be managed with medical therapy. Stroke unit / ICU monitoring Dr Rendon Critical care time spent in reviewing chart, evaluating patient and formulating plan - 36 minutes.
--- NOTE | 2018-09-12 15:17 | CONSULT ---
Consult - text type - Consultation Consultation Note: Mrs. Hughes is a 72 y/o female with multiple medical co-morbidities including ESRD, HTN, DM, COPD, CHF and afib on coumadin who [facility] ED for new left sided weakness. A stat Head CT was done and showed a large right sided ICH with significant mass effect and midline shift. The patient was arousable and followed simple commands readily in the ED. Her pupils were equal, round and reactive to light. Her left arm and leg strength were 0/5. Her INR was found to be extremely elevated at 7. A CTA was also done and found to be negative for any underlying aneurysms or vascular malformations. The patient would be a very high risk candidate for surgery given her age, multiple medical co-morbidities and severe coagulopathy. Her overall prognosis is poor with or without surgery. The patient and her family do not want any surgical intervention. However, they are agreeable to medical mgmt. She has been made DNR/DNI. The coumadin has been discontinued and she is receiving FFP and Vit K. She has also received mannitol to help reduce her elevated ICP. A Cardene drip has been instituted as well to help better control her elevated bp. I have discussed all of these issues with the patient, family and ED attending. Will sign off at this time. Please reconsult with any further questions or issues.
[2018-09-12] MEDS: DEXTROSE 5%-0.45% SALINE 1,000 ML IV SCH (15:25)
[2018-09-12] MEDS: ACETAMINOPHEN 1000 MG/100 ML VIAL (NON FORMULARY) IVPB PRN (16:49)
--- NOTE | 2018-09-12 18:13 | CON.NEURO ---
Consult Consult Specialty:: Lazaro Referred by:: ER Reason for Consultation:: CVA - History of Present Illness History of Present Illness: 72-year-old right-handed female patient with multiple medical problem including morbid obesity hypertension COPD presented to the hospital with altered [facility] status [facility] the [facility] patient is DNR/DNI. Unfortunately the CAT scans showed large volume of intracerebral intra-axial hemorrhage. Patient was admitted to telemetry. Patient received mannitol no Decadron was given. No seizure-like activity patient was started on Keppra! Patient herself was seen on telemetry patient with no seizure activity overnight patient is arousable - History Source History Provided By: Medical Record Limitations to Obtaining History: Clinical Condition - Past Medical History Cardio/Vascular: Yes: AFIB (anticoagulants for 5 yrs , on coumadin), CHF, HTN, Hyperlipdemia Pulmonary: Yes: Asthma, COPD Gastrointestinal: Yes: Constipation, GERD, Other (does not remember about colonscopy ) Renal/: Yes: Renal Inusuff (ESRD on HD), UTI (h/o recurrent uti) Psych: Yes: Depression (because son at age 38 yrs by sucide ) Musculoskeletal: Yes: Osteoarthritis Endocrine: Yes: Diabetes Mellitus (IDDM since age 40 yrs ), Other (morbid obesity ) Additional Medical History: morbid obesity - Past Surgical History Past Surgical History: Yes: (40 years ago per patient), Tubal Ligation - Alcohol/Substance Use Hx Alcohol Use: No History of Substance Use: reports: None - Smoking History Smoking history: Never smoked Have you smoked in the past 12 months: No Aproximately how many cigarettes per day: 0 - Social History Usual Living Arrangement: Halfway (for 2 yrs at [employer]) ADL: Support Services History of Recent Travel: No Home Medications - Allergies Allergies/Adverse Reactions: Allergies Allergy/AdvReac Type Severity Reaction Status Date / Time No Known Allergies Allergy Verified 09/12/18 11:17 - Home Medications Home Medications: Ambulatory Orders Acetaminophen 650 mg PO Q6H 09/12/18 Acetaminophen [Tylenol -] 500 mg PO Q4H PRN 09/12/18 Atorvastatin Ca [Lipitor] 20 mg PO HS 09/12/18 Bisacodyl [Dulcolax] 10 mg RC ASDIR PRN 09/12/18 Budesonide/Formeterol Fumarate [SYMBICORT 160/4.5mcg -] 1 inh PO BID 09/12/18 Cholecalciferol (Vitamin D3) [Vitamin D3] 1,000 unit PO DAILY 09/12/18 Collagenase Clostridium Hist. [Santyl] 1 applic TP DAILY 09/12/18 Docusate Sodium [Colace -] 300 mg PO HS 09/12/18 Folic Acid - 1 mg PO DAILY 09/12/18 Furosemide 80 mg PO ASDIR 09/12/18 Gel Dressing [[place]-Gel] 1 each TP BID 09/12/18 Insulin (LOG) Aspart [NovoLOG -] 5 units SQ TID 09/12/18 Insulin Glargine,Hum.rec.anlog [Basaglar Kwikpen U-100] 33 unit SQ HS 09/12/18 Isosorbide Mononitrate [Isosorbide Mononitrate ER] 60 mg PO DAILY 09/12/18 Lisinopril 5 mg PO DAILY 09/12/18 Metoprolol Tartrate 50 mg PO Q8H 09/12/18 [place]-3S/Dha/Epa/Fish Oil [[place]-3 Fish Oil 1,000 mg Sfgl] 1 each PO DAILY 09/12 Ondansetron [Zofran -] 4 mg PO TID PRN 09/12/18 Polyethylene Glycol 3350 [Miralax (For Daily Use) -] 17 gm PO BID 09/12/18 Ranitidine [Zantac -] 150 mg PO HS 09/12/18 Sennosides [Senna] 2 tab PO HS 09/12/18 Sevelamer Carbonate [Renvela] 2,400 mg PO CM 09/12/18 Silver Sulfadiazine 1% Top Cr [Silvadene -] 1 applic TP PRN PRN 09/12/18 Simethicone 80 mg PO Q4H PRN 09/12/18 Vitamin B Comp W-C [Nephro-Essie -] 1 tablet PO DAILY 09/12/18 Warfarin Sodium 4 mg PO HS 09/12/18 Zinc Oxide 20% Topical Oint 454 gm NR BID 09/12/18 traMADol HCL [Ultram] 100 mg PO Q8H PRN 09/12/18 Family Disease History - Family Disease History Family History: Unable to Obtain Family Disease History: Diabetes: Father ( age 44, complications DM), Mother ( age 83), Daughter (Alive, ESRD), Heart Disease: Mother, Other: Son (, age 38 suicide), Daughter Review of Systems Unable to obtain ROS, reason: unable to obtain Physical Exam-Neuro Vital Signs: Vital Signs Temperature 100.7 F H 09/12/18 15:24 Pulse Rate 117 H 09/12/18 14:42 Respiratory Rate 20 09/12/18 14:42 Blood Pressure 143/66 09/12/18 14:42 O2 Sat by Pulse Oximetry (%) 96 09/12/18 16:19 Constitutional: Yes: Well Nourished Neck: Yes: WNL Cardiovascular: Yes: WNL Labs: CBC, BMP 09/12/18 08:34 09/12/18 08:34 INR, PTT INR 7.61 (0.83-1.09) H* 09/12/18 08:34 - Neuro Exam Level Of Consciousness: Yes: Alert, Obtunded Eyes: Yes: PERRLA Speech: Garbled Dominant Hand: Right Cranial Nerves II-XII Intact: No Gag: Absent DTR's: 1+ Left Bicep, 1+ Right Bicep, 1+ Right Tricep, 1+ Left Brachioradialis Response to light touch: Abnormal Response to pain prick: Abnormal Response to temperature: Abnormal Motor Strength: 0/5: Left Arm, Left Leg Imaging - Results Cat Scan: Image Reviewed Problem List - Problems (1) Intracerebral hemorrhage Assessment/Plan: the location of the intracerebral hemorrhage intra-axial hemorrhage is most common with hypertension-induced intracerebral hemorrhage 1. Neuro checks every 1 hour. 2. Patient is not surgical candidate. 3. Decadron 4 mg every 8 hours. 4. GI prophylaxis. 5. BGM. 6. Elevated the head of the bed at 30. 6. Repeat CAT scan of the head today 7. Speech and swallow evaluation Code(s): I61.9 - NONTRAUMATIC INTRACEREBRAL HEMORRHAGE, UNSPECIFIED Qualifiers: Intracerebral hemorrhage etiology: nontraumatic Cerebral hemorrhage location: cerebral hemisphere, cortical portion Laterality: right Qualified Code(s): I61.1 - Nontraumatic intracerebral hemorrhage in hemisphere, cortical
[2018-09-12] MEDS ORDERED: FUROSEMIDE 40 MG/4 ML INJECTABLE VIAL IVPUSH ONE (18:18)
[2018-09-12] MEDS ORDERED: ACETAMINOPHEN 650 MG SUPP.RECT PR ONE (18:18)
[2018-09-12 18:25] LABS: INR 1.3 (0.83-1.09); PROTHROMBIN TIME (PATIENT) 15.4 SEC (9.7-13.0)
--- NOTE | 2018-09-12 19:17 | CONSULT ---
Consult Consult Specialty:: Nephrology Reason for Consultation:: ESRD - History of Present Illness Chief Complaint: sent in for lethargy History of Present Illness: Pt is a 72 year old female with pmhx of esrd (MWF), copd, chf, a-fib on coumadin , DM, HTN, HLD, and recurrent UTI who was sent to the ER from [facility] for lethargy. She was last seen in her normal state the night before she presented. She does not know why she is in the hospital. She was found to have a CVA. She last had HD yesterday. She has her head turned to the right. Her mental status is not at baseline. She denies fever or chills. - History Source History Provided By: Patient, Family Member, Medical Record - Past Medical History Cardio/Vascular: Yes: AFIB (anticoagulants for 5 yrs , on coumadin), CHF, HTN, Hyperlipdemia Pulmonary: Yes: Asthma, COPD Gastrointestinal: Yes: Constipation, GERD, Other (does not remember about colonscopy ) Renal/: Yes: Renal Inusuff (ESRD on HD), UTI (h/o recurrent uti) Psych: Yes: Depression (because son at age 38 yrs by sucide ) Musculoskeletal: Yes: Osteoarthritis Endocrine: Yes: Diabetes Mellitus (IDDM since age 40 yrs ), Other (morbid obesity ) Additional Medical History: morbid obesity - Past Surgical History Past Surgical History: Yes: (40 years ago per patient), Tubal Ligation - Alcohol/Substance Use Hx Alcohol Use: No History of Substance Use: reports: None - Smoking History Smoking history: Never smoked Have you smoked in the past 12 months: No Aproximately how many cigarettes per day: 0 - Social History Usual Living Arrangement: Residential (for 2 yrs at [facility]) ADL: Support Services History of Recent Travel: No Home Medications - Allergies Allergies/Adverse Reactions: Allergies Allergy/AdvReac Type Severity Reaction Status Date / Time No Known Allergies Allergy Verified 09/12/18 11:17 - Home Medications Home Medications: Ambulatory Orders Acetaminophen 650 mg PO Q6H 09/12/18 Acetaminophen [Tylenol -] 500 mg PO Q4H PRN 09/12/18 Atorvastatin Ca [Lipitor] 20 mg PO HS 09/12/18 Bisacodyl [Dulcolax] 10 mg RC ASDIR PRN 09/12/18 Budesonide/Formeterol Fumarate [SYMBICORT 160/4.5mcg -] 1 inh PO BID 09/12/18 Cholecalciferol (Vitamin D3) [Vitamin D3] 1,000 unit PO DAILY 09/12/18 Collagenase Clostridium Hist. [Santyl] 1 applic TP DAILY 09/12/18 Docusate Sodium [Colace -] 300 mg PO HS 09/12/18 Folic Acid - 1 mg PO DAILY 09/12/18 Furosemide 80 mg PO ASDIR 09/12/18 Gel Dressing [[place]-Gel] 1 each TP BID 09/12/18 Insulin (LOG) Aspart [NovoLOG -] 5 units SQ TID 09/12/18 Insulin Glargine,Hum.rec.anlog [Basaglar Kwikpen U-100] 33 unit SQ HS 09/12/18 Isosorbide Mononitrate [Isosorbide Mononitrate ER] 60 mg PO DAILY 09/12/18 Lisinopril 5 mg PO DAILY 09/12/18 Metoprolol Tartrate 50 mg PO Q8H 09/12/18 [place]-3S/Dha/Epa/Fish Oil [[place]-3 Fish Oil 1,000 mg Sfgl] 1 each PO DAILY 09/12 Ondansetron [Zofran -] 4 mg PO TID PRN 09/12/18 Polyethylene Glycol 3350 [Miralax (For Daily Use) -] 17 gm PO BID 09/12/18 Ranitidine [Zantac -] 150 mg PO HS 09/12/18 Sennosides [Senna] 2 tab PO HS 09/12/18 Sevelamer Carbonate [Renvela] 2,400 mg PO CM 09/12/18 Silver Sulfadiazine 1% Top Cr [Silvadene -] 1 applic TP PRN PRN 09/12/18 Simethicone 80 mg PO Q4H PRN 09/12/18 Vitamin B Comp W-C [Nephro-Essie -] 1 tablet PO DAILY 09/12/18 Warfarin Sodium 4 mg PO HS 09/12/18 Zinc Oxide 20% Topical Oint 454 gm NR BID 09/12/18 traMADol HCL [Ultram] 100 mg PO Q8H PRN 09/12/18 Family Disease History - Family Disease History Family Disease History: Diabetes: Father ( age 44, complications DM), Mother ( age 83), Daughter (Alive, ESRD), Heart Disease: Mother, Other: Son (, age 38 suicide), Daughter Review of Systems - Review of Systems Constitutional: reports: Malaise Eyes: reports: No Symptoms Neck: reports: No Symptoms Cardiovascular: reports: No Symptoms Respiratory: reports: No Symptoms Gastrointestinal: reports: No Symptoms Genitourinary: reports: Incontinence Musculoskeletal: reports: Muscle Weakness Neurological: reports: Other (new cva) Endocrine: reports: No Symptoms Psychiatric: reports: No Symptoms Physical Exam Vital Signs: Vital Signs Temperature 101 F H 09/12/18 18:15 Pulse Rate 118 H 09/12/18 18:15 Respiratory Rate 20 09/12/18 18:15 Blood Pressure 127/88 09/12/18 18:15 O2 Sat by Pulse Oximetry (%) 96 09/12/18 16:19 Constitutional: Yes: Calm Eyes: Yes: Conjunctiva Clear HENT: Yes: Atraumatic Neck: Yes: Supple Cardiovascular: Yes: S1, S2 Respiratory: Yes: CTA Bilaterally, On Nasal O2 Gastrointestinal: Yes: Soft, Abdomen, Obese Renal/: Yes: Incontinence Musculoskeletal: Yes: Muscle Weakness Edema: Yes Edema: LLE: 1+, RLE: 1+ Neurological: Yes: Confusion, Other (left side neglect) Labs: CBC, BMP 09/12/18 08:34 09/12/18 08:34 Laboratory Tests 09/12/18 08:34 Sodium 137 Potassium 5.0 BUN 25 H Creatinine 5.3 H Problem List - Problems (1) COPD (chronic obstructive pulmonary disease) Code(s): J44.9 - CHRONIC OBSTRUCTIVE PULMONARY DISEASE, UNSPECIFIED Qualifiers: COPD type: unspecified COPD Qualified Code(s): J44.9 - Chronic obstructive pulmonary disease, unspecified (2) End stage renal disease on dialysis Code(s): N18.6 - END STAGE RENAL DISEASE; Z99.2 - DEPENDENCE ON RENAL DIALYSIS (3) Intracerebral hemorrhage Code(s): I61.9 - NONTRAUMATIC INTRACEREBRAL HEMORRHAGE, UNSPECIFIED Qualifiers: Intracerebral hemorrhage etiology: nontraumatic Cerebral hemorrhage location: cerebral hemisphere, cortical portion Laterality: right Qualified Code(s): I61.1 - Nontraumatic intracerebral hemorrhage in hemisphere, cortical Assessment/Plan Current Medications Generic Name Dose Route Start Last Admin Trade Name Freq PRN Reason Stop Dose Admin Acetaminophen 1,000 mg 09/12/18 16:19 09/12/18 16:49 Ofirmev Injection - IVPB 1,000 mg Q6H PRN Administration FEVER Dexamethasone Sodium Phosphate 4 mg 09/13/18 02:00 Decadron Injection - IVPUSH Q8H-IV BRYANT Dextrose/Sodium Chloride 1,000 mls @ 42 mls/hr 09/12/18 14:45 09/12/18 15:25 D5-1/2ns - IV 42 mls/hr Q24H BRYANT Administration Ceftriaxone Sodium 1 gm/ 50 mls @ 100 mls/hr 09/13/18 08:00 Dextrose IVPB DAILY@0800 BRYANT Famotidine/Sodium Chloride 20 mg in 50 mls @ 100 mls/hr 09/12/18 22:00 Pepcid 20 Mg Premixed Ivpb - IVPB BID BRYANT Impression 1. ESRD 2. obesity 3. hyperlipidemia 4. HTN 5. DM 6. CHF 7. CAD 8. anemia 9. a-fib 10. iron deficiency 11. CVA Plan - follow up neuro - decrease rate of d5 - will evaluate for HD tomorrow - repeat labs in am - bp parameters per neuro - pulm input appreciated
[2018-09-12] MEDS ORDERED: levETIRAcetam 500 MG/5 ML INJECTION VIAL IVPB SCH (22:00)
[2018-09-12] MEDS: FAMOTIDINE 20 MG/50 ML IVPB 20 MG/50 ML MG IVPB SCH (23:47)
[2018-09-13] MEDS: DEXAMETHASONE SOD PHOSPHATE 4 MG/1 ML VIAL IVPUSH SCH ×4 (01:08→21:49)
[2018-09-13] MEDS: ACETAMINOPHEN 1000 MG/100 ML VIAL (NON FORMULARY) IVPB PRN ×2 (06:21→21:48)
[2018-09-13 07:58] LABS: HEMATOCRIT 40.1 % (32.4-45.2); MCH 34.7 pg (25.7-33.7); MCHC 32.4 g/dl (32.0-36.0); MEAN PLT VOLUME 8.6 fl (7.5-11.1); PLATELET COUNT 196 K/MM3 (134-434); RBC 3.75 M/mm3 (3.60-5.2); RDW 16.9 % (11.6-15.6); WHITE BLOOD COUNT 10.5 K/mm3 (4.0-10.0)
[2018-09-13 08:19] LABS: ALBUMIN 3.1 g/dl (3.4-5.0); BILIRUBIN,TOTAL 0.7 mg/dL (0.2-1); CALCIUM 9.3 mg/dL (8.5-10.1); CREATININE 6.4 mg/dL (0.55-1.3); INR 1.05 (0.83-1.09); POTASSIUM 5.2 mmol/L (3.5-5.1); PROTHROMBIN TIME (PATIENT) 12.4 SEC (9.7-13.0)
[2018-09-13] MEDS ORDERED: DEXTROSE 5%-WATER - 50 ML IVPB ONE (10:53)
[2018-09-13] MEDS ORDERED: cefTRIAXone SODIUM 1 GM VIAL ONE (10:53)
--- NOTE | 2018-09-13 11:28 | PN ---
Progress Note, Physician History of Present Illness: Pt seen and examined at bedside. She is lethargic today. - Current Medication List Current Medications: Active Medications Acetaminophen (Ofirmev Injection -) 1,000 mg IVPB Q6H PRN PRN Reason: FEVER Last Admin: 09/13/18 06:21 Dose: 1,000 mg Dexamethasone Sodium Phosphate (Decadron Injection -) 4 mg IVPUSH Q8H-IV BRYANT Last Admin: 09/13/18 01:08 Dose: 4 mg Dextrose/Sodium Chloride (D5-1/2ns -) 1,000 mls @ 42 mls/hr IV Q24H BRYANT Last Admin: 09/12/18 15:25 Dose: 42 mls/hr Ceftriaxone Sodium 1 gm/ (Dextrose) 50 mls @ 100 mls/hr IVPB DAILY@0800 BRYANT Famotidine/Sodium Chloride (Pepcid 20 Mg Premixed Ivpb -) 20 mg in 50 mls @ 100 mls/hr IVPB HS BRYANT Last Admin: 09/12/18 23:47 Dose: 100 mls/hr - Objective Vital Signs: Vital Signs Temperature 100.4 F H 09/13/18 02:00 Pulse Rate 131 H 09/13/18 02:00 Respiratory Rate 20 09/13/18 02:00 Blood Pressure 172/57 H 09/13/18 02:00 O2 Sat by Pulse Oximetry (%) 99 09/13/18 05:00 Constitutional: Yes: Calm Eyes: Yes: Conjunctiva Clear Cardiovascular: Yes: S1, S2 Respiratory: Yes: On Nasal O2 Gastrointestinal: Yes: Normal Bowel Sounds, Soft, Abdomen, Obese Genitourinary: Yes: Incontinence Musculoskeletal: Yes: Muscle Weakness Edema: Yes Edema: LLE: Trace, RLE: Trace Neurological: Yes: Lethargy Labs: CBC, BMP 09/13/18 06:08 09/13/18 06:08 INR, PTT INR 1.05 (0.83-1.09) 09/13/18 06:08 Problem List - Problems (1) COPD (chronic obstructive pulmonary disease) Code(s): J44.9 - CHRONIC OBSTRUCTIVE PULMONARY DISEASE, UNSPECIFIED Qualifiers: COPD type: unspecified COPD Qualified Code(s): J44.9 - Chronic obstructive pulmonary disease, unspecified (2) End stage renal disease on dialysis Code(s): N18.6 - END STAGE RENAL DISEASE; Z99.2 - DEPENDENCE ON RENAL DIALYSIS (3) Intracerebral hemorrhage Code(s): I61.9 - NONTRAUMATIC INTRACEREBRAL HEMORRHAGE, UNSPECIFIED Qualifiers: Intracerebral hemorrhage etiology: nontraumatic Cerebral hemorrhage location: cerebral hemisphere, cortical portion Laterality: right Qualified Code(s): I61.1 - Nontraumatic intracerebral hemorrhage in hemisphere, cortical Assessment/Plan Current Medications Generic Name Dose Route Start Last Admin Trade Name Freq PRN Reason Stop Dose Admin Acetaminophen 1,000 mg 09/12/18 16:19 09/13/18 06:21 Ofirmev Injection - IVPB 1,000 mg Q6H PRN Administration FEVER Dexamethasone Sodium Phosphate 4 mg 09/13/18 02:00 09/13/18 01:08 Decadron Injection - IVPUSH 4 mg Q8H-IV BRYANT Administration Dextrose/Sodium Chloride 1,000 mls @ 42 mls/hr 09/12/18 14:45 09/12/18 15:25 D5-1/2ns - IV 42 mls/hr Q24H BRYANT Administration Ceftriaxone Sodium 1 gm/ 50 mls @ 100 mls/hr 09/13/18 08:00 Dextrose IVPB DAILY@0800 BRYANT Famotidine/Sodium Chloride 20 mg in 50 mls @ 100 mls/hr 09/12/18 22:00 23:47 Pepcid 20 Mg Premixed Ivpb - IVPB 100 mls/hr HS BRYANT Administration Impression 1. ESRD 2. obesity 3. hyperlipidemia 4. HTN 5. DM 6. CHF 7. CAD 8. anemia 9. a-fib 10. iron deficiency 11. CVA Plan - ct scan shows worsening of the bleed - unstable for HD at this point - will need to discuss overall GOC - cont with d5w - prognosis is poor - neurology follow up - discussed with at bedside
[2018-09-13] MEDS: CEFTRIAXONE 1 GM in DEXTROSE 5%-WATER - 50 ML IVPB SCH (11:37)
[2018-09-13] MEDS: DEXTROSE 5%-0.45% SALINE 1,000 ML IV SCH (15:31)
--- NOTE | 2018-09-13 16:09 | HP ---
Admitting History and Physical - Primary Care Physician PCP: Remedios Reddy - Admission Chief Complaint: AMS History of Present Illness: 72 yrs old female- ESRD on HD< Afib on Coumadin,obesity sent from [facility] for altered mental status She is AAOx3 , mostly bed/wheelchair bound Found to be altered , in ER found to have large intracranial bleed CTA brain--noaneurysm received FFP, Vit K , Mannitol, decadron She spoke to ER MD yesterday and wanted to be DNR/DNI, did not want any surgeries. Today she is lethargic,left sided neglect History Source: Medical Record, Transfer Record Limitations to Obtaining History: Physical Impairment - Past Medical History Cardiovascular: Yes: AFIB (anticoagulants for 5 yrs , on coumadin), CHF, HTN, Hyperlipdemia Pulmonary: Yes: Asthma, COPD Gastrointestinal: Yes: Constipation, GERD, Other (does not remember about colonscopy ) Renal/: Yes: Renal Inusuff (ESRD on HD), UTI (h/o recurrent uti) Heme/Onc: Yes: Anemia (history of chronic anemia, on intermittent transfusions and also on Procrit at [place]), Other. No: B12 Deficiency, Bleeding Disorder, Cancer, Current Chemotherapy, Current Radiation Therapy, Hemochromatosis, Hypercoaguable State, Myeloproliferative Synd, Sickle Cell Disease, Sickle Cell Trait, Thrombocytopenia Psych: Yes: Depression (because son at age 38 yrs by sucide ) Musculoskeletal: Yes: Osteoarthritis Endocrine: Yes: Diabetes Mellitus (IDDM since age 40 yrs ), Other (morbid obesity ) - Past Surgical History Past Surgical History: Yes: (40 years ago per patient), Tubal Ligation - Advance Directives Advance Directives: Yes: DNR - Smoking History Smoking history: Never smoked Have you smoked in the past 12 months: No Aproximately how many cigarettes per day: 0 - Alcohol/Substance Use Hx Alcohol Use: No History of Substance Use: reports: None - Social History ADL: Support Services History of Recent Travel: No Home Medications - Allergies Allergies/Adverse Reactions: Allergies Allergy/AdvReac Type Severity Reaction Status Date / Time No Known Allergies Allergy Verified 09/12/18 11:17 - Home Medications Home Medications: Ambulatory Orders Acetaminophen 650 mg PO Q6H 09/12/18 Acetaminophen [Tylenol -] 500 mg PO Q4H PRN 09/12/18 Atorvastatin Ca [Lipitor] 20 mg PO HS 09/12/18 Bisacodyl [Dulcolax] 10 mg RC ASDIR PRN 09/12/18 Budesonide/Formeterol Fumarate [SYMBICORT 160/4.5mcg -] 1 inh PO BID 09/12/18 Cholecalciferol (Vitamin D3) [Vitamin D3] 1,000 unit PO DAILY 09/12/18 Collagenase Clostridium Hist. [Santyl] 1 applic TP DAILY 09/12/18 Docusate Sodium [Colace -] 300 mg PO HS 09/12/18 Folic Acid - 1 mg PO DAILY 09/12/18 Furosemide 80 mg PO ASDIR 09/12/18 Gel Dressing [[place]-Gel] 1 each TP BID 09/12/18 Insulin (LOG) Aspart [NovoLOG -] 5 units SQ TID 09/12/18 Insulin Glargine,Hum.rec.anlog [Basaglar Kwikpen U-100] 33 unit SQ HS 09/12/18 Isosorbide Mononitrate [Isosorbide Mononitrate ER] 60 mg PO DAILY 09/12/18 Lisinopril 5 mg PO DAILY 09/12/18 Metoprolol Tartrate 50 mg PO Q8H 09/12/18 [place]-3S/Dha/Epa/Fish Oil [[place]-3 Fish Oil 1,000 mg Sfgl] 1 each PO DAILY 09/12 Ondansetron [Zofran -] 4 mg PO TID PRN 09/12/18 Polyethylene Glycol 3350 [Miralax (For Daily Use) -] 17 gm PO BID 09/12/18 Ranitidine [Zantac -] 150 mg PO HS 09/12/18 Sennosides [Senna] 2 tab PO HS 09/12/18 Sevelamer Carbonate [Renvela] 2,400 mg PO CM 09/12/18 Silver Sulfadiazine 1% Top Cr [Silvadene -] 1 applic TP PRN PRN 09/12/18 Simethicone 80 mg PO Q4H PRN 09/12/18 Vitamin B Comp W-C [Nephro-Essie -] 1 tablet PO DAILY 09/12/18 Warfarin Sodium 4 mg PO HS 09/12/18 Zinc Oxide 20% Topical Oint 454 gm NR BID 06/04/19 traMADol HCL [Ultram] 100 mg PO Q8H PRN 09/12/18 Family Disease History - Family Disease History Family Disease History: Diabetes: Father ( age 44, complications DM), Mother ( age 83), Daughter (Alive, ESRD), Heart Disease: Mother, Other: Son (, age 38 suicide), Daughter Review of Systems - Review of Systems Constitutional: denies: Chills, Fever Cardiovascular: denies: Chest Pain Physical Examination Vital Signs: Vital Signs Temperature 101.5 F H 09/13/18 14:15 Pulse Rate 114 H 09/13/18 14:15 Respiratory Rate 22 H 09/13/18 14:15 Blood Pressure 157/89 09/13/18 14:15 O2 Sat by Pulse Oximetry (%) 97 09/13/18 09:00 Cardiovascular: Yes: Pulse Irregular Respiratory: Yes: Diminished Gastrointestinal: Yes: Normal Bowel Sounds, Soft, Abdomen, Obese. No: Tenderness Edema: Yes Edema: LLE: 2+, RLE: 2+ Neurological: Yes: Lethargy, Weakness (flaccid left side) Labs: CBC, BMP 09/13/18 06:08 09/13/18 06:08 Imaging - Results Chest X-ray: Image Reviewed Cat Scan: Report Reviewed EKG: Image Reviewed Problem List - Problems (1) COPD (chronic obstructive pulmonary disease) Code(s): J44.9 - CHRONIC OBSTRUCTIVE PULMONARY DISEASE, UNSPECIFIED Qualifiers: COPD type: unspecified COPD Qualified Code(s): J44.9 - Chronic obstructive pulmonary disease, unspecified (2) Elevated INR (international normalized ratio) due to prior anticoagulant medication ingestion Code(s): R79.1 - ABNORMAL COAGULATION PROFILE (3) End stage renal disease on dialysis Code(s): N18.6 - END STAGE RENAL DISEASE; Z99.2 - DEPENDENCE ON RENAL DIALYSIS (4) Intracerebral hemorrhage Code(s): I61.9 - NONTRAUMATIC INTRACEREBRAL HEMORRHAGE, UNSPECIFIED Qualifiers: Intracerebral hemorrhage etiology: nontraumatic Cerebral hemorrhage location: cerebral hemisphere, cortical portion Laterality: right Qualified Code(s): I61.1 - Nontraumatic intracerebral hemorrhage in hemisphere, cortical Assessment/Plan PLAN INR reversed pt unable to swallow repeat CT head hold off diaysis as pt is unstable Palliative care eval Neurology eval, neurosurgery eval noted pt is dnr/dni
[2018-09-13] MEDS ORDERED: METOPROLOL TARTRATE 5 MG/5 ML VIAL IVPUSH ONE (17:45)
[2018-09-13] MEDS: FAMOTIDINE 20 MG/50 ML IVPB 20 MG/50 ML MG IVPB SCH (21:49)
[2018-09-14] MEDS: DEXAMETHASONE SOD PHOSPHATE 4 MG/1 ML VIAL IVPUSH SCH ×4 (03:13→20:51)
[2018-09-14] MEDS: CEFTRIAXONE 1 GM in DEXTROSE 5%-WATER - 50 ML IVPB SCH (10:00)
[2018-09-14] MEDS ORDERED: cefTRIAXone SODIUM 1 GM VIAL ONE (11:13)
[2018-09-14] MEDS ORDERED: DEXTROSE 5%-WATER - 50 ML IVPB ONE (11:14)
[2018-09-14 14:10] VITALS: BMI 47.5
--- NOTE | 2018-09-14 14:14 | PN ---
Progress Note (short form) - Note Progress Note: Lethargic, obtunded more Vital Signs - 24 hr 09/13/18 09/13/18 09/13/18 17:44 18:00 21:00 Temperature 101.3 F H Pulse Rate 115 H 114 H 115 H Respiratory 20 20 Rate Blood Pressure 210/110 H 170/97 147/81 O2 Sat by Pulse Oximetry (%) 09/13/18 09/14/18 09/14/18 21:15 02:00 06:55 Temperature 101.7 F H 99.4 F Pulse Rate 114 H 115 H Respiratory 20 20 Rate Blood Pressure 169/86 119/94 O2 Sat by Pulse 98 Oximetry (%) 09/14/18 09/14/18 09/14/18 09:00 09:47 14:00 Temperature 100.2 F H 98.1 F Pulse Rate 108 H 120 H Respiratory 18 20 Rate Blood Pressure 195/69 H 153/100 O2 Sat by Pulse 96 Oximetry (%) Current Medications Generic Name Dose Route Start Last Admin Trade Name Freq PRN Reason Stop Dose Admin Acetaminophen 1,000 mg 09/12/18 16:19 09/13/18 21:48 Ofirmev Injection - IVPB 1,000 mg Q6H PRN Administration FEVER Dexamethasone Sodium Phosphate 4 mg 09/13/18 15:00 09/14/18 15:25 Decadron Injection - IVPUSH 4 mg Q6H-IV BRYANT Administration Dextrose/Sodium Chloride 1,000 mls @ 42 mls/hr 09/12/18 14:45 09/13/18 15:31 D5-1/2ns - IV Not Given Q24H BRYANT Ceftriaxone Sodium 1 gm/ 50 mls @ 100 mls/hr 09/13/18 08:00 09/14/18 10:00 Dextrose IVPB 100 mls/hr DAILY@0800 BRYANT Administration Famotidine/Sodium Chloride 20 mg in 50 mls @ 100 mls/hr 09/12/18 22:00 21:49 Pepcid 20 Mg Premixed Ivpb - IVPB 100 mls/hr HS BRYANT Administration Laboratory Results - last 24 hr 09/13/18 09/14/18 19:28 07:00 POC Glucometer 214 278 S1 S2 Irregular Lungs decreased Left side neglect Left side flaccid Abd- soft, obese, NT edema+ PLAN gentle iv fluids Hold dialysis on decadron CT head-- worse Poor prognosis palliative care Problem List - Problems (1) COPD (chronic obstructive pulmonary disease) Code(s): J44.9 - CHRONIC OBSTRUCTIVE PULMONARY DISEASE, UNSPECIFIED Qualifiers: Qualified Code(s): J44.9 - Chronic obstructive pulmonary disease, unspecified (2) Elevated INR (international normalized ratio) due to prior anticoagulant medication ingestion Code(s): R79.1 - ABNORMAL COAGULATION PROFILE (3) End stage renal disease on dialysis Code(s): N18.6 - END STAGE RENAL DISEASE; Z99.2 - DEPENDENCE ON RENAL DIALYSIS (4) Intracerebral hemorrhage Code(s): I61.9 - NONTRAUMATIC INTRACEREBRAL HEMORRHAGE, UNSPECIFIED Qualifiers: Qualified Code(s): I61.1 - Nontraumatic intracerebral hemorrhage in hemisphere, cortical
--- NOTE | 2018-09-14 14:15 | PN ---
Progress Note, Physician History of Present Illness: Pt seen and examined at bedside. She is lethargic. She is not responding to verbal stimuli. She retracts to tactile stimuli. - Current Medication List Current Medications: Active Medications Acetaminophen (Ofirmev Injection -) 1,000 mg IVPB Q6H PRN PRN Reason: FEVER Last Admin: 09/13/18 21:48 Dose: 1,000 mg Dexamethasone Sodium Phosphate (Decadron Injection -) 4 mg IVPUSH Q6H-IV BRYANT Last Admin: 09/14/18 10:00 Dose: 4 mg Dextrose/Sodium Chloride (D5-1/2ns -) 1,000 mls @ 42 mls/hr IV Q24H [facility] Last Admin: 09/13/18 15:31 Dose: Not Given Ceftriaxone Sodium 1 gm/ (Dextrose) 50 mls @ 100 mls/hr IVPB DAILY@0800 [facility] Last Admin: 09/14/18 10:00 Dose: 100 mls/hr Famotidine/Sodium Chloride (Pepcid 20 Mg Premixed Ivpb -) 20 mg in 50 mls @ 100 mls/hr IVPB HS [facility] Last Admin: 09/13/18 21:49 Dose: 100 mls/hr - Objective Vital Signs: Vital Signs Temperature 100.2 F H 09/14/18 09:47 Pulse Rate 108 H 09/14/18 09:47 Respiratory Rate 18 09/14/18 09:47 Blood Pressure 195/69 H 09/14/18 09:47 O2 Sat by Pulse Oximetry (%) 96 09/14/18 09:00 Constitutional: Yes: Mild Distress Eyes: Yes: Conjunctiva Clear Cardiovascular: Yes: S1, S2 Respiratory: Yes: CTA Bilaterally, On Nasal O2 Gastrointestinal: Yes: Soft, Abdomen, Obese Genitourinary: Yes: Incontinence Musculoskeletal: Yes: Muscle Weakness Edema: No Neurological: Yes: Lethargy Labs: CBC, BMP 09/13/18 06:08 09/13/18 06:08 INR, PTT INR 1.05 (0.83-1.09) 09/13/18 06:08 Problem List - Problems (1) COPD (chronic obstructive pulmonary disease) Code(s): J44.9 - CHRONIC OBSTRUCTIVE PULMONARY DISEASE, UNSPECIFIED Qualifiers: COPD type: unspecified COPD Qualified Code(s): J44.9 - Chronic obstructive pulmonary disease, unspecified (2) End stage renal disease on dialysis Code(s): N18.6 - END STAGE RENAL DISEASE; Z99.2 - DEPENDENCE ON RENAL DIALYSIS (3) Intracerebral hemorrhage Code(s): I61.9 - NONTRAUMATIC INTRACEREBRAL HEMORRHAGE, UNSPECIFIED Qualifiers: Intracerebral hemorrhage etiology: nontraumatic Cerebral hemorrhage location: cerebral hemisphere, cortical portion Laterality: right Qualified Code(s): I61.1 - Nontraumatic intracerebral hemorrhage in hemisphere, cortical Assessment/Plan Current Medications Generic Name Dose Route Start Last Admin Trade Name Freq PRN Reason Stop Dose Admin Acetaminophen 1,000 mg 09/12/18 16:19 09/13/18 21:48 Ofirmev Injection - IVPB 1,000 mg Q6H PRN Administration FEVER Dexamethasone Sodium Phosphate 4 mg 09/13/18 15:00 09/14/18 10:00 Decadron Injection - IVPUSH 4 mg Q6H-IV BRYANT Administration Dextrose/Sodium Chloride 1,000 mls @ 42 mls/hr 09/12/18 14:45 09/13/18 15:31 D5-1/2ns - IV Not Given Q24H BRYANT Ceftriaxone Sodium 1 gm/ 50 mls @ 100 mls/hr 09/13/18 08:00 09/14/18 10:00 Dextrose IVPB 100 mls/hr DAILY@0800 BRYANT Administration Famotidine/Sodium Chloride 20 mg in 50 mls @ 100 mls/hr 09/12/18 22:00 21:49 Pepcid 20 Mg Premixed Ivpb - IVPB 100 mls/hr HS BRYANT Administration Impression 1. ESRD 2. obesity 3. hyperlipidemia 4. HTN 5. DM 6. CHF 7. CAD 8. anemia 9. a-fib 10. iron deficiency 11. CVA Plan - discussed with neuro, prognosis is poor - spoke to and family at length, they would look like to hold off aggressive measures such as HD and make the patient comfortable - they are discussed comfort care - bp has been labile - pt unstable for HD - prognosis is poor
--- NOTE | 2018-09-14 15:01 | CONSULT ---
Admitting History and Physical - Primary Care Physician PCP: Remedios Reddy - Admission History of Present Illness: Per EMR- 72 yo female pmh ESRD (M/W/F, permacath R chest), COPD, dCHF, AFib (on Coumadin) , IDDM, HTN, HLD, and frequent UTI (Klebsiella, MRSA) BIBA from [facility] for reports of lethargy,altered mental status Pt had complaint of MORALES with noted left sided neglect, left sided weakness and left sided facial droop with dysarthria She normally AAOx3 , mostly bed/wheelchair bound Pt found to have large intracranial bleed. History Source: Medical Record Limitations to Obtaining History: Clinical Condition - Past Medical History Cardiovascular: Yes: AFIB (anticoagulants for 5 yrs , on coumadin), CHF, HTN, Hyperlipdemia Pulmonary: Yes: Asthma, COPD Gastrointestinal: Yes: Constipation, GERD, Other (does not remember about colonscopy ) Renal/: Yes: Renal Inusuff (ESRD on HD), UTI (h/o recurrent uti) Heme/Onc: Yes: Anemia (history of chronic anemia, on intermittent transfusions and also on Procrit at [place]), Other. No: B12 Deficiency, Bleeding Disorder, Cancer, Current Chemotherapy, Current Radiation Therapy, Hemochromatosis, Hypercoaguable State, Myeloproliferative Synd, Sickle Cell Disease, Sickle Cell Trait, Thrombocytopenia Psych: Yes: Depression (because son at age 38 yrs by sucide ) Musculoskeletal: Yes: Osteoarthritis Endocrine: Yes: Diabetes Mellitus (IDDM since age 40 yrs ), Other (morbid obesity ) - Past Surgical History Past Surgical History: Yes: (40 years ago per patient), Tubal Ligation - Advance Directives Advance Directives: Yes: DNR - Smoking History Smoking history: Never smoked Have you smoked in the past 12 months: No Aproximately how many cigarettes per day: 0 - Alcohol/Substance Use Hx Alcohol Use: No History of Substance Use: reports: None - Social History ADL: Support Services History of Recent Travel: No History - Admission Reason For Visit: ELEVATED INR,ESRD,INTRACEREBRAL HEMORRHAGE - Diagnostics CT Scan: Report Reviewed (Head CT: Large acute hematoma in the right temporal and frontal lobe that may be involving lateral aspect of the right basal ganglia measuring 7.2 x 4.3 cm with surrounding edema, mass effect, effacement of the right lateral ventricle and shift of the midline structures towards the left side, approximately 5 mm. Differential diagnosis includes a large hemorrhagic infarct.) - General Mental Status: Lethargic Attention: Unresponsive - Hearing Hearing: Normal Hearing Aide: No With Patient: No Speech Evaluation - Communication Primary Language: VIETNAMESE - Speech Characteristics Voice Loudness: Normal Voice Pitch: Yes: Normal Voice Phonatory-based Quality: Yes: Normal - Swallow Evaluation/Bedside Assessment Current Nutritional Intake: NPO Oral Secretions: Yes: WFL Recommendations - Speech Evaluation, Impression/Plan Impression: Pt lethargic, not responsive to questions or directives. Talking in her sleep "yea" "ok" with good vocal quality, no vocal wetness. - Dysphagia Impressions/Plan Swallowing Skills: Impaired Dysphagia Impressions: Risk of Aspiration, Too Lethargic to Assess Recommendations: Other (To reassess if pt becomes more alert) - Recommendations Diet Consistency: NPO
--- NOTE | 2018-09-14 16:53 | PN ---
Progress Note, Physician History of Present Illness: events noted Chart reviewed Alert less No seziure activity family at bedside Off Oxygen Repeat head CT noted with larger size bleed with shift On higher decadron ?? HD Spoke to nephrology Fluid shift might induce herniation Patient will develop hydrocephalus - Current Medication List Current Medications: Active Medications Acetaminophen (Ofirmev Injection -) 1,000 mg IVPB Q6H PRN PRN Reason: FEVER Last Admin: 09/13/18 21:48 Dose: 1,000 mg Dexamethasone Sodium Phosphate (Decadron Injection -) 4 mg IVPUSH Q6H-IV [facility] Last Admin: 09/14/18 15:25 Dose: 4 mg Dextrose/Sodium Chloride (D5-1/2ns -) 1,000 mls @ 42 mls/hr IV Q24H [facility] Last Admin: 09/13/18 15:31 Dose: Not Given Ceftriaxone Sodium 1 gm/ (Dextrose) 50 mls @ 100 mls/hr IVPB DAILY@0800 [facility] Last Admin: 09/14/18 10:00 Dose: 100 mls/hr Famotidine/Sodium Chloride (Pepcid 20 Mg Premixed Ivpb -) 20 mg in 50 mls @ 100 mls/hr IVPB HS [facility] Last Admin: 09/13/18 21:49 Dose: 100 mls/hr - Objective Vital Signs: Vital Signs Temperature 98.1 F 09/14/18 14:00 Pulse Rate 120 H 09/14/18 14:00 Respiratory Rate 20 09/14/18 14:00 Blood Pressure 153/100 09/14/18 14:00 O2 Sat by Pulse Oximetry (%) 96 09/14/18 09:00 Constitutional: Yes: Well Nourished Eyes: Yes: WNL Neurological: Yes: Babinski positive (sedated positive gaze) ...Motor Strength: LUE (0), LLE (0) Labs: CBC, BMP 09/13/18 06:08 09/13/18 06:08 INR, PTT INR 1.05 (0.83-1.09) 09/13/18 06:08 Problem List - Problems (1) Intracerebral hemorrhage Assessment/Plan: Prognsis very poor for any good recovery from this amount of over 50 ml of bleed with shift Suggest supportive care Decadron Seziure precautions Code(s): I61.9 - NONTRAUMATIC INTRACEREBRAL HEMORRHAGE, UNSPECIFIED Qualifiers: Intracerebral hemorrhage etiology: nontraumatic Cerebral hemorrhage location: cerebral hemisphere, cortical portion Laterality: right Qualified Code(s): I61.1 - Nontraumatic intracerebral hemorrhage in hemisphere, cortical
[2018-09-14] MEDS ORDERED: METOPROLOL TARTRATE 5 MG/5 ML VIAL IVPUSH ONE (19:45)
[2018-09-14] MEDS: DEXTROSE 5%-0.45% SALINE 1,000 ML IV SCH (20:50)
[2018-09-14] MEDS: ACETAMINOPHEN 1000 MG/100 ML VIAL (NON FORMULARY) IVPB PRN (20:50)
[2018-09-14] MEDS: FAMOTIDINE 20 MG/50 ML IVPB 20 MG/50 ML MG IVPB SCH (22:50)
[2018-09-15] MEDS: DEXAMETHASONE SOD PHOSPHATE 4 MG/1 ML VIAL IVPUSH SCH ×4 (03:47→21:56)
[2018-09-15] MEDS ORDERED: cefTRIAXone SODIUM 1 GM VIAL ONE (08:28)
[2018-09-15] MEDS ORDERED: DEXTROSE 5%-WATER - 50 ML IVPB ONE (08:29)
[2018-09-15] MEDS: CEFTRIAXONE 1 GM in DEXTROSE 5%-WATER - 50 ML IVPB SCH (08:44)
[2018-09-15] MEDS ORDERED: ACETAMINOPHEN 1000 MG/100 ML VIAL (NON FORMULARY) IVPB PRN (11:32)
--- NOTE | 2018-09-15 11:35 | PN ---
Progress Note (short form) - Note Progress Note: pt seen/ examined chart reviewed/ events noted drowsy-- arousable Vital Signs Temp 101.1 F H 09/15/18 09:51 Pulse 104 H 09/15/18 09:51 Resp 24 H 09/15/18 09:51 BP 157/94 09/15/18 09:51 Pulse Ox 96 09/14/18 21:00 Intake & Output 09/14/18 09/14/18 09/15/18 11:59 23:59 11:59 Intake Total 100 672 452 Balance 100 672 452 Weight 260 lb 3.2 oz 260 lb Intake: IV 672 252 D5-1/2Ns - 1,000 ml @ 42 672 252 mls/hr IV Q24H [facility] Rx#: [id number] IVPB 100 200 Oral 0 Other: Voiding Method Incontinent Incontinent Incontinent # Unmeasured Voids Straight Cath 1 Bowel Movement Yes # Bowel Movements 1 Height 5 ft 2 in Body Mass Index (BMI) 47.5 Weight Measurement Method Patient Lift Scale Active Medications Acetaminophen (Ofirmev Injection -) 1,000 mg IVPB Q8H PRN PRN Reason: PAIN LEVEL 6-10 Dexamethasone Sodium Phosphate (Decadron Injection -) 4 mg IVPUSH Q6H-IV [facility] Last Admin: 09/15/18 10:09 Dose: 4 mg Dextrose/Sodium Chloride (D5-1/2ns -) 1,000 mls @ 42 mls/hr IV Q24H [facility] Last Admin: 09/14/18 20:50 Dose: 42 mls/hr Ceftriaxone Sodium 1 gm/ (Dextrose) 50 mls @ 100 mls/hr IVPB DAILY@0800 [facility] Last Admin: 09/15/18 08:44 Dose: 100 mls/hr Famotidine/Sodium Chloride (Pepcid 20 Mg Premixed Ivpb -) 20 mg in 50 mls @ 100 mls/hr IVPB HS [facility] Last Admin: 09/14/18 22:50 Dose: 100 mls/hr CBC, BMP 09/13/18 06:08 09/13/18 06:08 INR, PTT INR 1.05 (0.83-1.09) 09/13/18 06:08 Physical S1 S2 Irregular Lungs decreased Left side neglect Left side flaccid Abd- soft, obese, NT edema+ PLAN comfort care on decadron CT head-- worse Poor prognosis off dialysis palliative care Discussed with Dr. Lee also today Problem List - Problems (1) COPD (chronic obstructive pulmonary disease) Code(s): J44.9 - CHRONIC OBSTRUCTIVE PULMONARY DISEASE, UNSPECIFIED Qualifiers: Qualified Code(s): J44.9 - Chronic obstructive pulmonary disease, unspecified (2) Elevated INR (international normalized ratio) due to prior anticoagulant medication ingestion Code(s): R79.1 - ABNORMAL COAGULATION PROFILE (3) End stage renal disease on dialysis Code(s): N18.6 - END STAGE RENAL DISEASE; Z99.2 - DEPENDENCE ON RENAL DIALYSIS (4) Intracerebral hemorrhage Code(s): I61.9 - NONTRAUMATIC INTRACEREBRAL HEMORRHAGE, UNSPECIFIED Qualifiers: Qualified Code(s): I61.1 - Nontraumatic intracerebral hemorrhage in hemisphere, cortical
--- NOTE | 2018-09-15 13:34 | PN ---
Progress Note, Physician History of Present Illness: Pt seen and examined at bedside. She is lethargic. She is on comfort measures. - Current Medication List Current Medications: Active Medications Acetaminophen (Ofirmev Injection -) 1,000 mg IVPB Q8H PRN PRN Reason: PAIN LEVEL 6-10 Dexamethasone Sodium Phosphate (Decadron Injection -) 4 mg IVPUSH Q6H-IV [facility] Last Admin: 09/15/18 10:09 Dose: 4 mg Dextrose/Sodium Chloride (D5-1/2ns -) 1,000 mls @ 42 mls/hr IV Q24H [facility] Last Admin: 09/14/18 20:50 Dose: 42 mls/hr Ceftriaxone Sodium 1 gm/ (Dextrose) 50 mls @ 100 mls/hr IVPB DAILY@0800 [facility] Last Admin: 09/15/18 08:44 Dose: 100 mls/hr Famotidine/Sodium Chloride (Pepcid 20 Mg Premixed Ivpb -) 20 mg in 50 mls @ 100 mls/hr IVPB HS [facility] Last Admin: 09/14/18 22:50 Dose: 100 mls/hr - Objective Vital Signs: Vital Signs Temperature 101.1 F H 09/15/18 09:51 Pulse Rate 104 H 09/15/18 09:51 Respiratory Rate 24 H 09/15/18 09:51 Blood Pressure 157/94 09/15/18 09:51 O2 Sat by Pulse Oximetry (%) 96 09/14/18 21:00 Constitutional: Yes: Calm Cardiovascular: Yes: S1, S2 Respiratory: Yes: On Nasal O2 Gastrointestinal: Yes: Soft, Abdomen, Obese Genitourinary: Yes: Incontinence Musculoskeletal: Yes: Muscle Weakness Edema: Yes Edema: LLE: 1+, RLE: 1+ Neurological: Yes: Lethargy Labs: CBC, BMP 09/13/18 06:08 09/13/18 06:08 INR, PTT INR 1.05 (0.83-1.09) 09/13/18 06:08 Problem List - Problems (1) COPD (chronic obstructive pulmonary disease) Code(s): J44.9 - CHRONIC OBSTRUCTIVE PULMONARY DISEASE, UNSPECIFIED Qualifiers: COPD type: unspecified COPD Qualified Code(s): J44.9 - Chronic obstructive pulmonary disease, unspecified (2) End stage renal disease on dialysis Code(s): N18.6 - END STAGE RENAL DISEASE; Z99.2 - DEPENDENCE ON RENAL DIALYSIS (3) Intracerebral hemorrhage Code(s): I61.9 - NONTRAUMATIC INTRACEREBRAL HEMORRHAGE, UNSPECIFIED Qualifiers: Intracerebral hemorrhage etiology: nontraumatic Cerebral hemorrhage location: cerebral hemisphere, cortical portion Laterality: right Qualified Code(s): I61.1 - Nontraumatic intracerebral hemorrhage in hemisphere, cortical Assessment/Plan Current Medications Generic Name Dose Route Start Last Admin Trade Name Taiwo PRN Reason Stop Dose Admin Acetaminophen 1,000 mg 09/15/18 11:32 Ofirmev Injection - IVPB Q8H PRN PAIN LEVEL 6-10 Dexamethasone Sodium Phosphate 4 mg 09/13/18 15:00 09/15/18 10:09 Decadron Injection - IVPUSH 4 mg Q6H-IV [facility] Administration Dextrose/Sodium Chloride 1,000 mls @ 42 mls/hr 09/12/18 14:45 09/14/18 20:50 D5-1/2ns - IV 42 mls/hr Q24H [facility] Administration Ceftriaxone Sodium 1 gm/ 50 mls @ 100 mls/hr 09/13/18 08:00 09/15/18 08:44 Dextrose IVPB 100 mls/hr DAILY@0800 [facility] Administration Famotidine/Sodium Chloride 20 mg in 50 mls @ 100 mls/hr 09/12/18 22:00 22:50 Pepcid 20 Mg Premixed Ivpb - IVPB 100 mls/hr HS [facility] Administration Impression 1. ESRD 2. obesity 3. hyperlipidemia 4. HTN 5. DM 6. CHF 7. CAD 8. anemia 9. a-fib 10. iron deficiency 11. CVA Plan - pt on comfort care - discussed with medical team - neuro input appreciated - bp has been labile - pt unstable for HD - prognosis is poor
--- NOTE | 2018-09-15 14:38 | PN ---
Progress Note, SILHOUETTE ARTIST - Note Progress Note: Eyes remain closed.However, pt is verbal telling me "I am hungry" and "Give me food." She says that the president is "Stupid-A%% Trump".Pt denies CVa stating "Dr. Reddy said I ddnthave one! Reoriented pt to place, recent bleed. Eyes deviated all the way to the right, side of the insult. Drooling out of mouth with nectar thick liquid attempted on teaspoon. Pt improved tolerance with cues to "Open mouth, now close lips TIGHT, now swallow." Risk of aspiration but seems overtly to tolerate. Pt is DNR/DNI. Rec:HOB fully elevated, chin to neutral or flexed trial of Dys puree/honey thick on tsp/ Magic cup/Ensure pudding Tell pt with each trial "Open mouth, now close lips TIGHT, now swallow hard" Monitor for cough, congestion, fever
[2018-09-15] MEDS: DEXTROSE 5%-0.45% SALINE 1,000 ML IV SCH (20:00)
[2018-09-15] MEDS: FAMOTIDINE 20 MG/50 ML IVPB 20 MG/50 ML MG IVPB SCH (21:46)
[2018-09-15] MEDS ORDERED: INSULIN (NOVOLOG) ASPART 100 UNITS/ML 10ML VIAL SQ ONE (23:40)
[2018-09-16] MEDS ORDERED: INSULIN (NOVOLOG) ASPART 100 UNITS/ML 10ML VIAL SQ ONE ×2 (01:37→05:06)
[2018-09-16] MEDS: DEXAMETHASONE SOD PHOSPHATE 4 MG/1 ML VIAL IVPUSH SCH ×3 (03:57→14:38)
[2018-09-16] MEDS ORDERED: cefTRIAXone SODIUM 1 GM VIAL ONE (09:54)
[2018-09-16] MEDS ORDERED: DEXTROSE 5%-WATER - 50 ML IVPB ONE (09:54)
[2018-09-16] MEDS: CEFTRIAXONE 1 GM in DEXTROSE 5%-WATER - 50 ML IVPB SCH (09:58)
--- NOTE | 2018-09-16 12:05 | PN ---
Progress Note, Physician History of Present Illness: Pt seen and examined at bedside. Family at bedside. They do not want any more HD therapy. - Current Medication List Current Medications: Active Medications Acetaminophen (Ofirmev Injection -) 1,000 mg IVPB Q8H PRN PRN Reason: PAIN LEVEL 6-10 Dexamethasone Sodium Phosphate (Decadron Injection -) 4 mg IVPUSH Q6H-IV [facility] Last Admin: 09/16/18 09:59 Dose: 4 mg Dextrose/Sodium Chloride (D5-1/2ns -) 1,000 mls @ 42 mls/hr IV Q24H [facility] Last Admin: 09/15/18 20:00 Dose: 42 mls/hr Ceftriaxone Sodium 1 gm/ (Dextrose) 50 mls @ 100 mls/hr IVPB DAILY@0800 [facility] Last Admin: 09/16/18 09:58 Dose: 100 mls/hr Famotidine/Sodium Chloride (Pepcid 20 Mg Premixed Ivpb -) 20 mg in 50 mls @ 100 mls/hr IVPB HS [facility] Last Admin: 09/15/18 21:46 Dose: 100 mls/hr - Objective Vital Signs: Vital Signs Temperature 98.8 F 09/16/18 10:00 Pulse Rate 115 H 09/16/18 10:00 Respiratory Rate 22 H 09/16/18 10:00 Blood Pressure 136/80 09/16/18 10:00 O2 Sat by Pulse Oximetry (%) 98 09/15/18 21:00 Constitutional: Yes: Calm Eyes: Yes: Conjunctiva Clear Cardiovascular: Yes: S1, S2 Respiratory: Yes: On Nasal O2 Gastrointestinal: Yes: Soft, Abdomen, Obese Genitourinary: Yes: Incontinence Musculoskeletal: Yes: Muscle Weakness Edema: Yes Edema: LLE: 1+, RLE: 1+ Neurological: Yes: Lethargy Labs: CBC, BMP 09/13/18 06:08 09/15/18 22:20 INR, PTT INR 1.05 (0.83-1.09) 09/13/18 06:08 Problem List - Problems (1) COPD (chronic obstructive pulmonary disease) Code(s): J44.9 - CHRONIC OBSTRUCTIVE PULMONARY DISEASE, UNSPECIFIED Qualifiers: COPD type: unspecified COPD Qualified Code(s): J44.9 - Chronic obstructive pulmonary disease, unspecified (2) End stage renal disease on dialysis Code(s): N18.6 - END STAGE RENAL DISEASE; Z99.2 - DEPENDENCE ON RENAL DIALYSIS (3) Intracerebral hemorrhage Code(s): I61.9 - NONTRAUMATIC INTRACEREBRAL HEMORRHAGE, UNSPECIFIED Qualifiers: Intracerebral hemorrhage etiology: nontraumatic Cerebral hemorrhage location: cerebral hemisphere, cortical portion Laterality: right Qualified Code(s): I61.1 - Nontraumatic intracerebral hemorrhage in hemisphere, cortical Assessment/Plan Current Medications Generic Name Dose Route Start Last Admin Trade Name Taiwo PRN Reason Stop Dose Admin Acetaminophen 1,000 mg 09/15/18 11:32 Ofirmev Injection - IVPB Q8H PRN PAIN LEVEL 6-10 Dexamethasone Sodium Phosphate 4 mg 09/13/18 15:00 09/16/18 09:59 Decadron Injection - IVPUSH 4 mg Q6H-IV [facility] Administration Dextrose/Sodium Chloride 1,000 mls @ 42 mls/hr 09/12/18 14:45 09/15/18 20:00 D5-1/2ns - IV 42 mls/hr Q24H [facility] Administration Ceftriaxone Sodium 1 gm/ 50 mls @ 100 mls/hr 09/13/18 08:00 09/16/18 09:58 Dextrose IVPB 100 mls/hr DAILY@0800 [facility] Administration Famotidine/Sodium Chloride 20 mg in 50 mls @ 100 mls/hr 09/12/18 22:00 21:46 Pepcid 20 Mg Premixed Ivpb - IVPB 100 mls/hr HS [facility] Administration Impression 1. ESRD 2. obesity 3. hyperlipidemia 4. HTN 5. DM 6. CHF 7. CAD 8. anemia 9. a-fib 10. iron deficiency 11. CVA Plan - spoke to family - they wish to stop HD - neuro follow up - last ct head shows worsening of bleed with shift - prognosis is poor
--- NOTE | 2018-09-16 13:01 | PN ---
Progress Note (short form) - Note Progress Note: more lethargic/ confused no distress Vital Signs Temp 98.8 F 09/16/18 10:00 Pulse 115 H 09/16/18 10:00 Resp 22 H 09/16/18 10:00 BP 136/80 09/16/18 10:00 Pulse Ox 98 09/15/18 21:00 Intake & Output 09/15/18 09/16/18 09/16/18 23:59 11:59 23:59 Intake Total 605 654 Balance 605 654 Intake: IV 505 504 D5-1/2Ns - 1,000 ml @ 42 505 504 mls/hr IV Q24H [facility] Rx#: [id number] IVPB 50 Oral 100 100 Other: Voiding Method Incontinent Incontinent Bowel Movement No Active Medications Acetaminophen (Ofirmev Injection -) 1,000 mg IVPB Q8H PRN PRN Reason: PAIN LEVEL 6-10 Dexamethasone Sodium Phosphate (Decadron Injection -) 4 mg IVPUSH Q6H-IV [facility] Last Admin: 09/16/18 09:59 Dose: 4 mg Dextrose/Sodium Chloride (D5-1/2ns -) 1,000 mls @ 42 mls/hr IV Q24H [facility] Last Admin: 09/15/18 20:00 Dose: 42 mls/hr Ceftriaxone Sodium 1 gm/ (Dextrose) 50 mls @ 100 mls/hr IVPB DAILY@0800 [facility] Last Admin: 09/16/18 09:58 Dose: 100 mls/hr Famotidine/Sodium Chloride (Pepcid 20 Mg Premixed Ivpb -) 20 mg in 50 mls @ 100 mls/hr IVPB HS [facility] Last Admin: 09/15/18 21:46 Dose: 100 mls/hr Insulin Aspart (Novolog Vial Sliding Scale -) 1 vial SQ BIDAC [facility]; Protocol CBC, BMP 09/13/18 06:08 09/15/18 22:20 Microbiology 09/12/18 08:34 Blood Culture - Preliminary Blood - Peripheral Venous NO GROWTH OBTAINED AFTER 96 HOURS, INCUBATION TO CONTINUE FOR 1 DAYS. 09/12/18 08:30 Blood Culture - Preliminary Blood - Peripheral Venous NO GROWTH OBTAINED AFTER 96 HOURS, INCUBATION TO CONTINUE FOR 1 DAYS. Physical Obese S1 S2 Irregular Lungs decreased Abd- soft, obese, NT edema+ PLAN comfort care Poor prognosis palliative care will add coverage as bgm running high Problem List - Problems (1) COPD (chronic obstructive pulmonary disease) Code(s): J44.9 - CHRONIC OBSTRUCTIVE PULMONARY DISEASE, UNSPECIFIED Qualifiers: Qualified Code(s): J44.9 - Chronic obstructive pulmonary disease, unspecified (2) Elevated INR (international normalized ratio) due to prior anticoagulant medication ingestion Code(s): R79.1 - ABNORMAL COAGULATION PROFILE (3) End stage renal disease on dialysis Code(s): N18.6 - END STAGE RENAL DISEASE; Z99.2 - DEPENDENCE ON RENAL DIALYSIS (4) Intracerebral hemorrhage Code(s): I61.9 - NONTRAUMATIC INTRACEREBRAL HEMORRHAGE, UNSPECIFIED Qualifiers: Qualified Code(s): I61.1 - Nontraumatic intracerebral hemorrhage in hemisphere, cortical
[2018-09-16] MEDS ORDERED: INSULIN SLIDING SCALE (NOVOLOG) 1 VIAL SQ SCH (16:30)
--- NOTE | 2018-09-16 18:51 | HOSP ---
Physical Examination Vital Signs: Vital Signs Temperature 99.2 F 09/16/18 14:20 Pulse Rate 112 H 09/16/18 14:20 Respiratory Rate 18 09/16/18 14:20 Blood Pressure 135/85 09/16/18 14:20 O2 Sat by Pulse Oximetry (%) 100 09/16/18 09:00 Labs: CBC, BMP 09/13/18 06:08 09/15/18 22:20 Hospitalist Encounter Assessment: notified dalila Luevano that patient was asystolic on cigarette tipper. COnfirmed on exam that there was no cardiac rhythm and was apneic. Pt DNR/DNI. MRSA isolation. Organ Donation notified. Attempted to call ([facility]) with no response and sister's phone went to voice mail. Notified Dr Lee's direct support professional service and spoke with Loni to please call me back so he can notify [facility]. Left my off number as well as then patients contact info
[2018-09-16 19:24] VITALS: BP 151/93; PULSE 116; TEMP 99
--- NOTE | 2018-09-17 09:31 | DS ---
Physical Examination Vital Signs: Vital Signs Temperature 99.0 F 09/16/18 17:00 Pulse Rate 116 H 09/16/18 17:00 Respiratory Rate 20 09/16/18 17:00 Blood Pressure 151/93 09/16/18 17:00 O2 Sat by Pulse Oximetry (%) 100 09/16/18 09:00 Findings/Remarks: see progress note 09/16/18 Labs: CBC, BMP 09/13/18 06:08 09/15/18 22:20 Discharge Summary Reason For Visit: ELEVATED INR,ESRD,INTRACEREBRAL HEMORRHAGE Hospital Course: admitted for cva- bleed coogulopathy respnded poorly comfort care pt Condition: - Instructions Referrals: Alicja Lee MD [Primary Care Provider] - Disposition: - Home Medications Comprehensive Discharge Medication List: Ambulatory Orders Acetaminophen 650 mg PO Q6H 09/12/18 Acetaminophen [Tylenol -] 500 mg PO Q4H PRN 09/12/18 Atorvastatin Ca [Lipitor] 20 mg PO HS 09/12/18 Bisacodyl [Dulcolax] 10 mg RC ASDIR PRN 09/12/18 Budesonide/Formeterol Fumarate [SYMBICORT 160/4.5mcg -] 1 inh PO BID 09/12/18 Cholecalciferol (Vitamin D3) [Vitamin D3] 1,000 unit PO DAILY 09/12/18 Collagenase Clostridium Hist. [Santyl] 1 applic TP DAILY 09/12/18 Docusate Sodium [Colace -] 300 mg PO HS 09/12/18 Folic Acid - 1 mg PO DAILY 09/12/18 Furosemide 80 mg PO ASDIR 09/12/18 Gel Dressing [De Beque-Gel] 1 each TP BID 09/12/18 Insulin (LOG) Aspart [NovoLOG -] 5 units SQ TID 09/12/18 Insulin Glargine,Hum.rec.anlog [Basaglar Kwikpen U-100] 33 unit SQ HS 09/12/18 Isosorbide Mononitrate [Isosorbide Mononitrate ER] 60 mg PO DAILY 09/12/18 Lisinopril 5 mg PO DAILY 09/12/18 Metoprolol Tartrate 50 mg PO Q8H 09/12/18 [place]-3S/Dha/Epa/Fish Oil [[place]-3 Fish Oil 1,000 mg Sfgl] 1 each PO DAILY 09/12 Ondansetron [Zofran -] 4 mg PO TID PRN 09/12/18 Polyethylene Glycol 3350 [Miralax (For Daily Use) -] 17 gm PO BID 09/12/18 Ranitidine [Zantac -] 150 mg PO HS 09/12/18 Sennosides [Senna] 2 tab PO HS 09/12/18 Sevelamer Carbonate [Renvela] 2,400 mg PO CM 09/12/18 Silver Sulfadiazine 1% Top Cr [Silvadene -] 1 applic TP PRN PRN 09/12/18 Simethicone 80 mg PO Q4H PRN 09/12/18 Vitamin B Comp W-C [Nephro-Essie -] 1 tablet PO DAILY 09/12/18 Warfarin Sodium 4 mg PO HS 09/12/18 Zinc Oxide 20% Topical Oint 454 gm NR BID 09/12/18 traMADol HCL [Ultram] 100 mg PO Q8H PRN 09/12/18
== END 2018-09-16 18:28 | disposition expired | DRG 64 ==
LOC: JER 08:04 → JERBED 11:51 → J4W 14:11
PROVIDERS: ADMIT Internal Medicine; ATTEND Internal Medicine
PROC: 30233L1 Transfusion of Nonautologous Fresh Plasma into Peripheral Vein, Percutaneous Approach (ICD-10-PCS; principal; 2018-09-12)
PROC: 30233K1 Transfusion of Nonautologous Frozen Plasma into Peripheral Vein, Percutaneous Approach (ICD-10-PCS; 2018-09-12)
DX: I61.1 Nontraumatic intracerebral hemorrhage in hemisphere, cortical (principal); L89.323 Pressure ulcer of left buttock, stage 3; N18.6 End stage renal disease; G93.5 Compression of brain; Z68.42 Body mass index [BMI] 45.0-49.9, adult; I13.2 Hypertensive heart and chronic kidney disease with heart failure and with stage 5 chronic kidney disease, or end stage renal disease; I50.30 Unspecified diastolic (congestive) heart failure; D68.9 Coagulation defect, unspecified; E66.01 Morbid (severe) obesity due to excess calories; E11.22 Type 2 diabetes mellitus with diabetic chronic kidney disease; I48.91 Unspecified atrial fibrillation; I46.9 Cardiac arrest, cause unspecified; E78.5 Hyperlipidemia, unspecified; Z79.4 Long term (current) use of insulin; J44.9 Chronic obstructive pulmonary disease, unspecified; D50.9 Iron deficiency anemia, unspecified; I25.10 Atherosclerotic heart disease of native coronary artery without angina pectoris
CPT/HCPCS: 36415; 36430; 70450-TC; 70496-TC; 71045-TC-FY; 80053; 80061; 81003; 82803; 82947; 82962; 83605; 83721; 83880; 84484; 85025; 85027; 85610; 85730; 86850; 86900; 86901; 87040; 87086; 93005; 93010; 99285-25; J0131; P9017